=== PATIENT | male | born 1970 | race Two or more races ===

== ENCOUNTER 2020-07-25 13:34 | Outpatient (REF) | payer OTHER, SELFPAY ==
[2020-07-25 14:29] LABS: MANUAL DIFF FLAG NO
[2020-07-25 14:35] LABS: Basophils Percent Auto 0.1 % (0-2); Eosinophils Absolute Auto 0.1 X10*3/uL (0.0-0.4); Eosinophils Percent Auto 1.6 % (0-4); Hematocrit 40.8 % (42-52); Hemoglobin 13.4 g/dl (14.0-18.0); Imm Gran Abs Auto 0.02 X10*3/uL (0.00-0.03); Imm Gran Pct Auto 0.3 % (0.0-0.4); Lymphocytes Absolute Auto 1.5 X10*3/uL (1.2-4.9); Lymphocytes Percent Auto 21.8 % (20-40); Mean Corpuscular HGB Conc 32.8 g/dl (31.0-36.0); Mean Corpuscular Hemoglobin 29.6 pg (27.0-33.0); Mean Corpuscular Volume 90.3 fL (80-98); Mean Platelet Volume 11.2 fL (9.4-12.4); Monocytes Absolute Auto 0.4 X10*3/uL (0.1-1.2); Monocytes Percent Auto 5.3 % (2-11); Neutrophils Absolute Auto 4.9 X10*3/uL (2.0-8.3); Neutrophils Percent Auto 70.9 % (45-73); Platelet Count 210 X10*3/uL (160-400); Red Blood Count 4.52 X10*6/uL (4.60-5.80); Red Cell Distribution Width 12.7 % (11.0-16.0)
[2020-07-25 15:11] LABS: Alanine Aminotransferase 16 U/L (0-40); Albumin Level 4.6 g/dL (3.5-5.0); Alkaline Phosphatase 98 U/L (39-117); Anion Gap 14 (12-20); Aspartate Amino Transferase 12 U/L (5-37); Bilirubin Total 0.4 mg/dL (0.0-1.0); Blood Urea Nitrogen 19 mg/dL (9-16); Calcium 9.6 mg/dL (8.4-10.2); Carbon Dioxide 26 mmol/L (22-29); Chloride 103 mmol/L (96-108); Cholesterol 98 mg/dL; Estimated Glomerular Filt Rate > 60; Glucose Random 102 mg/dL (60-115); HDL Cholesterol 39 mg/dL; LDL Cholesterol Calculated 44 mg/dl; Potassium 4.3 mmol/l (3.3-5.1); Sodium 139 mmol/L (135-145); Total Protein 6.9 g/dL (6.5-8.0); Triglycerides 79 mg/dL
[2020-07-25 15:17] LABS: Creatinine Urine 270.04 mg/dL; Microalbum/Creatinine Ratio Ur 7.4 ug/mg cr
[2020-07-25 15:27] LABS: Thyroid Stimulating Hormone 0.48 uIU/mL (0.32-4.0)
[2020-07-25 16:13] LABS: Vitamin B12 > 2000 pg/mL (200-900)
[2020-07-28 23:42] LABS: Lamotrigine Lamictal 7.1 mcg/mL (4.0-18.0)
== END 2020-07-25 13:35 | disposition home or self-care (01) ==
LOC: HO.LAB 13:34
PROVIDERS: Absent Provider Psychiatry & Neurology Psychiatry; PCP Internal Medicine; Visit Provider Internal Medicine
DX: E11.40 Type 2 diabetes mellitus with diabetic neuropathy, unspecified (principal); E78.00 Pure hypercholesterolemia, unspecified; F43.12 Post-traumatic stress disorder, chronic; Z00.00 Encounter for general adult medical examination without abnormal findings; Z79.899 Other long term (current) drug therapy
CPT/HCPCS: 36415; 80053; 80061; 80175; 82043; 82607; 84443; 85025

== ENCOUNTER → 2020-08-31 13:27 | Outpatient (BNVA) | payer OTHER, SELFPAY | PROVIDERS: PCP Internal Medicine; Visit Provider Urology | DX: R35.0 Frequency of micturition (principal); R10.32 Left lower quadrant pain; R31.9 Hematuria, unspecified | CPT/HCPCS: 51798; 81002; 99212 ==

== ENCOUNTER 2020-10-06 08:45 | Outpatient (REF) | payer OTHER, SELFPAY ==
--- NOTE | ~2020-10-06 | CT_ITS ---
EXAMINATION: CT ABDOMEN AND PELVIS WITHOUT AND WITH CONTRAST CLINICAL INFORMATION: Hematuria. COMPARISON: CT abdomen and pelvis 10/14/2019 and 05/24/2019 TECHNIQUE: Multidetector volumetric imaging was performed of the abdomen and pelvis before and after the IV administration of 350 mL of Omnipaque 300 intravenous contrast. Sagittal and coronal reformatted images were obtained on the technologist's workstation. This CT examination was performed using dose optimization techniques as appropriate, variously including the following: Automated exposure control Adjustment of mA and/or kV according to patient size (this includes techniques or standardized protocols for targeted exams where dose is matched to indication/reason for exam; i.e. extremities or head) Use of iterative reconstruction technique DLP: 735 mGy-cm FINDINGS: LUNG BASES: There are minimal atelectatic changes in the lingula and left lung base. LIVER, GALLBLADDER, AND BILIARY TREE: The liver is normal in size, shape, and attenuation. No focal hepatic lesion or biliary ductal dilatation is present. The gallbladder is unremarkable with no evidence of radiopaque gallstones, gallbladder wall thickening, or obvious pericholecystic inflammatory changes. PANCREAS: Unremarkable SPLEEN: Unremarkable ADRENAL GLANDS: Unremarkable KIDNEYS AND URETERS: There are no radiopaque renal calculi or hydroureteronephrosis. Post contrast, there are symmetrical bilateral kidney nephrograms without any enhancing mass or cyst. There is no perinephric fat stranding. There are bilateral opacified kidney pelves and ureters without obstruction or narrowing. BLADDER: Partially opacified bladder appears unremarkable. GASTROINTESTINAL TRACT: There is scattered stool and gas seen throughout the colon without any significant distention. The small bowel loops are of normal caliber. ABDOMINAL WALL: No significant hernia is appreciated. LYMPH NODES: No abnormal sized lymph nodes seen. VASCULAR: Unremarkable PELVIC VISCERA: Prostate gland is of normal size with TURP defect. The periprostatic fat planes are preserved. OSSEOUS STRUCTURES: There is mild ventral spondylosis of the lumbar spine. There is anterior fusion of the right SI joint. There is a 2.2 cm lesion of the left iliac bone with sclerotic borders and a ground-glass opacity. CT/CT abdomen pelvis wo/w con IMPRESSION: No radiopaque urolith or renal enhancing mass or hydroureteronephrosis. Non-distended urinary bladder with a TURP defect. Prostate gland is of normal size. Mild constipation. Stable right SI joint fusion and sclerotic benign left iliac bone lesion aerated
[2020-10-06 10:33] LABS: Estimated Average Glucose 111 mg/dL; Hemoglobin A1c % 5.5 %
[2020-10-06 10:38] LABS: Alanine Aminotransferase 16 U/L (0-40); Albumin Level 4.4 g/dL (3.5-5.0); Alkaline Phosphatase 107 U/L (39-117); Anion Gap 12 (12-20); Aspartate Amino Transferase 12 U/L (5-37); Bilirubin Total 0.3 mg/dL (0.0-1.0); Blood Urea Nitrogen 19 mg/dL (9-16); Calcium 9.7 mg/dL (8.4-10.2); Carbon Dioxide 31 mmol/L (22-29); Chloride 104 mmol/L (96-108); Estimated Glomerular Filt Rate > 60; Glucose Random 132 mg/dL (60-115); Potassium 4.5 mmol/L (3.3-5.1); Sodium 142 mmol/L (135-145); Total Protein 6.6 g/dL (6.5-8.0)
[2020-10-06] MEDS: iohexoL 350 MG/ML 100 ML INFUS..BTL IV (11:39)
== END 2020-10-06 08:46 | disposition home or self-care (01) ==
LOC: HO.CT 08:45
PROVIDERS: Absent Provider Internal Medicine; PCP Internal Medicine; Visit Provider Urology
DX: R10.32 Left lower quadrant pain (principal); R31.9 Hematuria, unspecified; R35.0 Frequency of micturition; E11.9 Type 2 diabetes mellitus without complications
CPT/HCPCS: 74178; 80053; 83036; Q9967

== ENCOUNTER → 2020-10-14 09:51 | Outpatient (BNVA) | payer OTHER, SELFPAY | PROVIDERS: PCP Internal Medicine; Visit Provider Urology | DX: Z76.89 Persons encountering health services in other specified circumstances (principal) | CPT/HCPCS: Q3014 ==

== ENCOUNTER → 2020-11-15 13:54 | Outpatient (BNVA) | payer OTHER, SELFPAY | PROVIDERS: PCP Internal Medicine; Visit Provider Urology | DX: N40.1 Benign prostatic hyperplasia with lower urinary tract symptoms (principal); N13.8 Other obstructive and reflux uropathy; R31.9 Hematuria, unspecified | CPT/HCPCS: 99212 ==

== ENCOUNTER 2020-12-19 09:16 | Day surgery (SDC) | payer OTHER, SELFPAY ==
--- NOTE | 2020-12-01 14:46 | HO.ANESPROP2 ---
HPI - Anesthesia Eval Consult details Narrative: 50yo M for Cystoscopy with Fulgeration [facility], [facility] Active Problems Active Problems: All Active Problems (Updated 10/14/20 @ 10:09 by Eric Randhawa MD) BPH w urinary obs/LUTS (Acute) Hematuria (Acute) Left lower quadrant pain (Acute) Urinary frequency (Acute) Past Medical History Medical History (Updated 12/01/20 @ 14:47 by Edda Hoang) Benign prostatic hyperplasia with lower urinary tract symptoms Hematuria Hypercalcemia Left lower quadrant pain Other obstructive and reflux uropathy Type 2 diabetes mellitus with unspecified complications Urgency incontinence Urinary frequency Social History Social History Smoking Status: Former smoker Meds Allergies Allergy/AdvReac Type Severity Reaction Status Date / Time linagliptin [From TRADJENTA] Allergy Unknown RASH Unverified 05/12/20 17:27 Wpfngfl-Xum-Qfr Reductase Allergy Unknown ITCHY,SKIN Unverified 05/12/20 17:27 Inhibitor BREAKDOWN [[id number] REDUCTASE INHIBITOR] statins Allergy Unknown Uncoded 03/30/20 00:00 Home Medications Medication Instructions Recorded Confirmed Last Taken Type atorvastatin 20 mg tablet 20 mg PO DAILY 08/31/20 08/31/20 Unknown History bacitracin 500 unit/gram topical TOPICAL BID 08/31/20 08/31/20 Unknown History ointment baclofen 20 mg tablet 20 mg PO 08/31/20 08/31/20 Unknown History carbamazepine 200 mg tablet 200 mg PO BEDTIME 08/31/20 08/31/20 Unknown History clonazepam 0.5 mg tablet 0.5 mg PO BEDTIME 08/31/20 08/31/20 Unknown History cyanocobalamin (vitamin B-12) 1,000 mcg PO DAILY 08/31/20 08/31/20 Unknown History 1,000 mcg tablet dicyclomine 10 mg capsule 0 mg PO 08/31/20 08/31/20 Unknown History duloxetine 30 mg capsule,delayed 30 mg PO DAILY 08/31/20 08/31/20 Unknown History release lisinopril 2.5 mg tablet 2.5 mg PO DAILY 08/31/20 08/31/20 Unknown History metformin 1,000 mg tablet 1,000 mg PO BID 08/31/20 08/31/20 Unknown History naproxen 500 mg tablet 500 mg PO BID 08/31/20 08/31/20 Unknown History pregabalin 300 mg capsule 300 mg PO BID 08/31/20 08/31/20 Unknown History quetiapine 25 mg tablet 25 mg PO BEDTIME 08/31/20 08/31/20 Unknown History sitagliptin 100 mg tablet 100 mg PO DAILY 08/31/20 08/31/20 Unknown History bupropion HCl 150 mg 24 hr tablet, mg PO 10/14/20 Unknown History extended release bupropion HCl 300 mg 24 hr tablet, 300 mg PO QAM 10/14/20 Unknown History extended release duloxetine 60 mg capsule,delayed 60 mg PO DAILY 10/14/20 Unknown History release glimepiride 1 mg tablet 1 mg PO DAILY 10/14/20 Unknown History glipizide 2.5 mg tablet, extended 2.5 mg PO DAILY 10/14/20 Unknown History release 24 hr ibuprofen 600 mg tablet 600 mg PO TID 10/14/20 Unknown History lamotrigine 200 mg tablet 200 mg PO BID 10/14/20 Unknown History prazosin 2 mg capsule 2 mg PO BEDTIME 10/14/20 Unknown History prazosin 5 mg capsule 5 mg PO BEDTIME 10/14/20 Unknown History Exam Exam Date and Time: December 01, 2020 144 Assessment and Plan Assessment Anesthesia Assessment: Chart Reviewed
[2020-12-14 12:30] VITALS: BMI 26.0
[2020-12-19] VITALS (8 sets, daily range): BP systolic 109–120; BP diastolic 52–80; PULSE 53–72; RESP 9–17; TEMP 36.1–36.9; O2SAT 96–99
[2020-12-19 10:51] LABS: Glucose, Whole Blood 113 mg/dL (60-115)
[2020-12-19] MEDS: levoFLOXacin 500 MG TABLET PO (11:01)
[2020-12-19] MEDS: Lactated Ringers 1,000 ML 100 ML IVCONT (11:01)
--- NOTE | 2020-12-19 13:20 | P.CONAN_ITS ---
[facility] Active Problems Active Problems: All Active Problems (Updated 12/01/20 @ 14:47 by Edda parish) BPH w urinary obs/LUTS (Acute) Hematuria (Acute) Left lower quadrant pain (Acute) Urinary frequency (Acute) Past Medical History Medical History Benign prostatic hyperplasia with lower urinary tract symptoms Hematuria Hypercalcemia Left lower quadrant pain Other obstructive and reflux uropathy Type 2 diabetes mellitus with unspecified complications Urgency incontinence Urinary frequency Surgical History Surgical History H/O colonoscopy History of prostate surgery Hx of cystoscopy Hx of cystoscopy Social History Social History Smoking Status: Unknown if ever smoked Advance Directives Information Provided: No Meds Allergies Allergy/AdvReac Type Severity Reaction Status Date / Time linagliptin [From TRADJENTA] Allergy Intermediate RASH Verified 12/14/20 12:20 Urddmwy-Xye-Gik Reductase Allergy Intermediate ITCHY,SKIN Verified 12/14/20 12:20 Inhibitor BREAKDOWN [[id number] REDUCTASE INHIBITOR] Active Medications: Current Medications Generic Name Dose Route Start Last Admin Trade Name Freq PRN Reason Stop Dose Admin Lactated Ringer's 1,000 mls @ 20 mls/hr 12/19/20 07:30 Lr IVCONT .Q24H ROLF Lactated Ringer's 1,000 mls @ 100 mls/hr 12/19/20 10:15 12/19/20 11:01 Lr IVCONT 100 mls/hr .Q10H ROLF Administration Home Medications Medication Instructions Recorded Confirmed Last Taken Type atorvastatin 20 mg tablet 20 mg PO DAILY 08/31/20 12/14/20 Unknown History bacitracin 500 unit/gram topical TOPICAL BID 08/31/20 08/31/20 Unknown History ointment baclofen 20 mg tablet 20 mg PO 08/31/20 08/31/20 Unknown History carbamazepine 200 mg tablet 200 mg PO BEDTIME 08/31/20 12/14/20 Unknown History clonazepam 0.5 mg tablet 0.5 mg PO BEDTIME 08/31/20 12/14/20 Unknown History cyanocobalamin (vitamin B-12) 1,000 mcg PO DAILY 08/31/20 12/14/20 Unknown History 1,000 mcg tablet dicyclomine 10 mg capsule 0 mg PO 08/31/20 08/31/20 Unknown History duloxetine 30 mg capsule,delayed 30 mg PO DAILY 08/31/20 12/14/20 12/19/20 History release lisinopril 2.5 mg tablet 2.5 mg PO DAILY 08/31/20 12/14/20 Unknown History metformin 1,000 mg tablet 1,000 mg PO BID 08/31/20 12/14/20 Unknown History naproxen 500 mg tablet 500 mg PO BID 08/31/20 08/31/20 Unknown History pregabalin 300 mg capsule 300 mg PO BID 08/31/20 12/14/20 12/19/20 History quetiapine 25 mg tablet 25 mg PO BEDTIME 08/31/20 12/14/20 Unknown History sitagliptin 100 mg tablet 100 mg PO DAILY 08/31/20 12/14/20 Unknown History bupropion HCl 150 mg 24 hr tablet, 150 mg PO QAM 10/14/20 12/14/20 Unknown History extended release bupropion HCl 300 mg 24 hr tablet, 300 mg PO QAM 10/14/20 12/14/20 12/19/20 History extended release duloxetine 60 mg capsule,delayed 60 mg PO DAILY 10/14/20 12/14/20 12/19/20 History release glimepiride 1 mg tablet 1 mg PO DAILY 10/14/20 Unknown History glipizide 2.5 mg tablet, extended 2.5 mg PO DAILY 10/14/20 12/14/20 Unknown History release 24 hr ibuprofen 600 mg tablet 600 mg PO TID 10/14/20 Unknown History lamotrigine 200 mg tablet 200 mg PO BID 10/14/20 12/14/20 12/19/20 History prazosin 2 mg capsule 2 mg PO BEDTIME 10/14/20 12/14/20 Unknown History prazosin 5 mg capsule 5 mg PO BEDTIME 10/14/20 12/14/20 Unknown History Exam Exam Date and Time: December 19, 2020 1320 Height,Weight and Vital Signs: Height 5 ft 11 in Weight 84.822 kg Last Vital Signs Temp 98.5 F 12/19/20 10:50 Pulse 72 12/19/20 10:50 Resp 16 12/19/20 10:50 BP 110/76 04/26/21 10:50 Pulse Ox 99 12/19/20 10:50 Pertinent Lab Results Pertinent Lab Results: Laboratory Tests 12/19/20 10:48 POC Glucose 113 Airway Mallampati Class: II TM Dist: >3cm Neck ROM: Full Heart: RR Lungs: CTA
--- NOTE | 2020-12-19 13:39 | MHC.SHP ---
Pre-Procedural Eval Section A The patient is an INPATIENT: No Changes since office visit: No Cold of Flu in the past 2 weeks, No New Medical Problems, No Changes in Medication and No Patient answered all questions The History & Physical has been completed within 30 days and I have reviewed it.: Yes Section B Chief Complaint: bleeding Allergies: Allergies Allergy/AdvReac Type Severity Reaction Status Date / Time linagliptin [From TRADJENTA] Allergy Intermediate RASH Verified 12/14/20 12:20 Nezzeml-Lhd-Rrv Reductase Allergy Intermediate ITCHY,SKIN Verified 12/14/20 12:20 Inhibitor BREAKDOWN [[id number]-NIM REDUCTASE INHIBITOR] Plan Diagnosis/Plan: Unchanged (cysto/fulgerate) I have reviewed the history and physical and performed a pertinent physical examination on my patient. No changes have occurred unless specified.
[2020-12-19 15:16] LABS: Glucose, Whole Blood 85 mg/dL (60-115)
--- NOTE | 2020-12-19 15:33 | PM.OP ---
Brief Operative Note Date of Service: 12/19/20 Pre-op diagnosis: Hematuria Post-op diagnosis: same Procedure: Cystoscopy with fulguration Surgeon: Eric Randhawa MD Anesthesia: MAC Estimated blood loss (mL): 0 Pathology: none sent Condition: stable Disposition: same day
--- NOTE | 2020-12-19 15:34 | P.OP_ITS ---
Operative Note Operative Note Date of Service: 12/19/20 Narrative: PreOperative Diagnosis: Hematuria Post Operative Diagnosis: Hematuria Procedure: Cysto fulguration Surgeon: Dr Eric Randhawa Anesthesia: General Indications for procedure: 50-year-old male. Previous prostate procedure. Presented with hematuria found to have near vascular change on bladder neck. Recommend cystoscopy with fulguration. Procedure: After informed consent was verified the patient was brought to the operating room and placed in a supine position. Anesthesia was administered per protocol. Patient was placed in modified dorsal lithotomy position and prepped and draped in a sterile fashion. Safety pause time-out was observed. Antibiotics have been given. Twenty-two [place]ian rigid cystoscope inserted per urethra. No abnormality noted in anterior posterior urethra. Bladder was examined in its entirety. There was neovascular change on the bladder outlet. This was fulgurated. After fulguration new procedure was completed. Tolerated procedure well was extubated in the operating room transferred in stable condition to the recovery area. Pathology: None Drains:
[2020-12-19 16:02] LABS: Glucose, Whole Blood 83 mg/dL (60-115)
[2020-12-19] MEDS: Acetaminophen 325 MG TABLET 650 MG PO (16:06)
[2020-12-19] MEDS: Phenazopyridine HCL 100 MG TABLET PO (16:07)
[2020-12-19] MEDS: traMADoL HCL 50 MG TABLET PO (16:07)
== END 2020-12-19 16:46 | disposition home or self-care (01) ==
PROVIDERS: PCP Internal Medicine; Visit Provider Urology
PROC: 0TJB8ZZ Inspection of Bladder, Via Natural or Artificial Opening Endoscopic (ICD-10-PCS; CPT 52000; principal; 2020-12-19 12:50)
DX: N40.1 Benign prostatic hyperplasia with lower urinary tract symptoms (principal); R31.9 Hematuria, unspecified; N13.8 Other obstructive and reflux uropathy; R35.0 Frequency of micturition; R39.15 Urgency of urination; E11.9 Type 2 diabetes mellitus without complications; Z79.84 Long term (current) use of oral hypoglycemic drugs; Z79.899 Other long term (current) drug therapy; Z88.8 Allergy status to other drugs, medicaments and biological substances
CPT/HCPCS: 52214; 82947; J1100; J2250; J2405; J3010

== ENCOUNTER → 2021-01-04 12:12 | Outpatient (BNVA) | payer OTHER, SELFPAY | PROVIDERS: PCP Internal Medicine; Visit Provider Urology | DX: Z13.89 Encounter for screening for other disorder (principal) | CPT/HCPCS: Q3014 ==

== ENCOUNTER 2021-01-17 14:00 | Outpatient (REF) | payer OTHER, SELFPAY ==
[2021-01-17 14:44] LABS: MANUAL DIFF FLAG NO
[2021-01-17 14:49] LABS: Basophils Percent Auto 0.1 % (0-2); Eosinophils Absolute Auto 0.1 X10*3/uL (0.0-0.4); Eosinophils Percent Auto 1.2 % (0-4); Hematocrit 38.8 % (42-52); Imm Gran Abs Auto 0.04 X10*3/uL (0.00-0.03); Imm Gran Pct Auto 0.5 % (0.0-0.4); Lymphocytes Absolute Auto 1.9 X10*3/uL (1.2-4.9); Lymphocytes Percent Auto 23.2 % (20-40); Mean Corpuscular HGB Conc 33.5 g/dl (31.0-36.0); Mean Corpuscular Hemoglobin 30.4 pg (27.0-33.0); Mean Corpuscular Volume 90.7 fL (80-98); Mean Platelet Volume 10.8 fL (9.4-12.4); Monocytes Absolute Auto 0.6 X10*3/uL (0.1-1.2); Monocytes Percent Auto 7.3 % (2-11); Neutrophils Absolute Auto 5.6 X10*3/uL (2.0-8.3); Neutrophils Percent Auto 67.7 % (45-73); Platelet Count 235 X10*3/uL (160-400); Red Blood Count 4.28 X10*6/uL (4.60-5.80); Red Cell Distribution Width 12.6 % (11.0-16.0); White Blood Count 8.3 X10*3/uL (4.8-10.8)
[2021-01-17 14:56] LABS: Estimated Average Glucose 120 mg/dL; Hemoglobin A1c % 5.8 %
[2021-01-17 15:07] LABS: Alanine Aminotransferase 19 U/L (0-40); Albumin Level 4.6 g/dL (3.5-5.0); Alkaline Phosphatase 111 U/L (39-117); Anion Gap 13 (12-20); Aspartate Amino Transferase 12 U/L (5-37); Bilirubin Total 0.2 mg/dL (0.0-1.0); Blood Urea Nitrogen 22 mg/dL (9-16); Calcium 10.3 mg/dL (8.4-10.2); Carbon Dioxide 27 mmol/L (22-29); Chloride 102 mmol/L (96-108); Estimated Glomerular Filt Rate > 60; Glucose Random 64 mg/dL (60-115); Potassium 4.1 mmol/L (3.3-5.1); Sodium 138 mmol/L (135-145); Total Protein 6.8 g/dL (6.5-8.0)
== END 2021-01-17 14:01 | disposition home or self-care (01) ==
LOC: HO.LAB 14:00
PROVIDERS: PCP Internal Medicine; Visit Provider Internal Medicine
DX: E11.40 Type 2 diabetes mellitus with diabetic neuropathy, unspecified (principal); E78.00 Pure hypercholesterolemia, unspecified; R23.3 Spontaneous ecchymoses
CPT/HCPCS: 36415; 80053; 83036; 85025

== ENCOUNTER 2021-01-22 13:02 | Emergency (ER) | payer OTHER, SELFPAY ==
--- NOTE | ~2021-01-22 | XR_ITS ---
EXAMINATION: XR CHEST CLINICAL INFORMATION: Chest pain COMPARISON: 02/21/2018 TECHNIQUE: 2 views of the chest were obtained. FINDINGS: Normal cardiomediastinal silhouette. Mild hypoinflation of the lungs with streaky atelectasis at the bilateral lung bases. No focal consolidation. No pleural effusion or pneumothorax. No acute osseous abnormality. Anterior fusion hardware is seen in the lower cervical spine. XR/XR chest 2V IMPRESSION: Streaky atelectasis at the bilateral lung bases. No acute consolidation.
[2021-01-22 13:11] VITALS: BP 125/83; PULSE 81; RESP 16; TEMP 36.8; O2SAT 98; BMI 25.0
--- NOTE | 2021-01-22 13:30 | ECG_ITS ---
Test Reason : SHORTNESS OF BREATH Blood Pressure : / mmHG Vent. Rate : 084 BPM Atrial Rate : 084 BPM P-R Int : 142 ms QRS Dur : 082 ms QT Int : 352 ms P-R-T Axes : 039 013 041 degrees QTc Int : 415 ms Normal sinus rhythm Possible Left atrial enlargement Possible Lateral infarct , age undetermined ; could be normal variant Abnormal ECG When compared with ECG of 05-MAR-2018 15:35, No significant change was found Referred By: Pily Mayorga Electronically Signed By:JYOTSNA MUNOZ
--- NOTE | 2021-01-22 13:43 | ED_ITS ---
HPI - Chest Pain General Chief Complaint: Chest Pain Stated Complaint: cp, diff breathing Time Seen by Provider: 01/22/21 13:20 Source: patient History of Present Illness HPI narrative: 50-year-old male past medical history of anxiety, depression, fibromyalgia, diabetes, hyperlipidemia, former smoker, quit 15 years ago presenting to the emergency department for chest pain and shortness of breath. Symptoms started on Saturday. He states he has had intermittent left-sided chest pain that is described as a pounding pain to the left side of his chest. It radiates to his jaw and down his left arm. Denies specific sugars. Symptoms started while he was watching a sports game on Saturday. He denies exertional chest pain. He states he is disabled due to his fibromyalgia and chronic back pain and denies any heavy lifting or strenuous exercise. He denies having similar episodes previously. No relieving factors. States it resolved spontaneously. Today pain worsened so he decided to come to the ED. He states he does have a history of cocaine use in the past but denies recent use. He denies IV drug use. He denies fevers, cough, abdominal pain, vomiting, leg swelling, history of DVT or PE. MD complaint: chest pain Related Data Home Medications Medication Instructions Recorded Confirmed atorvastatin 20 mg tablet 20 mg PO DAILY 08/31/20 12/14/20 bacitracin 500 unit/gram topical TOPICAL BID 08/31/20 08/31/20 ointment baclofen 20 mg tablet 20 mg PO 08/31/20 08/31/20 carbamazepine 200 mg tablet 200 mg PO BEDTIME 08/31/20 12/14/20 clonazepam 0.5 mg tablet 0.5 mg PO BEDTIME 08/31/20 12/14/20 cyanocobalamin (vitamin B-12) 1,000 mcg PO DAILY 08/31/20 12/14/20 1,000 mcg tablet dicyclomine 10 mg capsule 0 mg PO 08/31/20 08/31/20 duloxetine 30 mg capsule,delayed 30 mg PO DAILY 08/31/20 12/14/20 release lisinopril 2.5 mg tablet 2.5 mg PO DAILY 08/31/20 12/14/20 metformin 1,000 mg tablet 1,000 mg PO BID 08/31/20 12/14/20 naproxen 500 mg tablet 500 mg PO BID 08/31/20 08/31/20 pregabalin 300 mg capsule 300 mg PO BID 08/31/20 12/14/20 quetiapine 25 mg tablet 25 mg PO BEDTIME 08/31/20 12/14/20 sitagliptin 100 mg tablet 100 mg PO DAILY 08/31/20 12/14/20 bupropion HCl 150 mg 24 hr tablet, 150 mg PO QAM 10/14/20 12/14/20 extended release bupropion HCl 300 mg 24 hr tablet, 300 mg PO QAM 10/14/20 12/14/20 extended release duloxetine 60 mg capsule,delayed 60 mg PO DAILY 10/14/20 12/14/20 release glimepiride 1 mg tablet 1 mg PO DAILY 10/14/20 glipizide 2.5 mg tablet, extended 2.5 mg PO DAILY 10/14/20 12/14/20 release 24 hr ibuprofen 600 mg tablet 600 mg PO TID 10/14/20 lamotrigine 200 mg tablet 200 mg PO BID 10/14/20 12/14/20 prazosin 2 mg capsule 2 mg PO BEDTIME 10/14/20 12/14/20 prazosin 5 mg capsule 5 mg PO BEDTIME 10/14/20 12/14/20 Previous Rx's Medication Instructions Recorded tamsulosin 0.4 mg capsule 0.4 mg PO BEDTIME #30 cap 11/07/20 finasteride 5 mg tablet 5 mg PO DAILY 90 Days #90 tab 01/04/21 lidocaine 1 patch TOPICAL DAILY PRN 5 Days 01/22/21 #5 ea Allergies Allergy/AdvReac Type Severity Reaction Status Date / Time linagliptin [From [facility]] Allergy Intermediate RASH Verified 01/04/21 12:12 Hadvdxz-Iqq-Idg Reductase Allergy Intermediate ITCHY,SKIN Verified 01/04/21 12:12 Inhibitor BREAKDOWN [[id number] REDUCTASE INHIBITOR] Review of Systems Constitutional: Constitutional: Denies fever(s) and Denies headache(s) Eyes: Eyes: Reports no additional eye complaints ENT: Denies headache(s), Denies nasal congestion and Denies sore throat Cardiovascular: Cardiovascular: Reports chest pain and Reports dyspnea Respiratory: Respiratory: Reports dyspnea Gastrointestinal: Gastrointestinal: Denies abdominal pain, Denies diarrhea and Denies vomiting Genitourinary: Comments: no complaint Musculoskeletal: Comments: left extremity pain Neurologic: Denies headache(s) Psychiatric: Psychiatric: Reports no additional psychiatric complaints Hematologic/Lymphatic: Hematologic/Lymphatic: Denies easy bleeding [facility] Past Medical History Medical History Benign prostatic hyperplasia with lower urinary tract symptoms Hematuria Hypercalcemia Left lower quadrant pain Other obstructive and reflux uropathy Type 2 diabetes mellitus with unspecified complications Urgency incontinence Urinary frequency Surgical History H/O colonoscopy History of prostate surgery Hx of cystoscopy Hx of cystoscopy Social History Social History (Updated 01/22/21 @ 15:08 by PRICILA Montelongo) Alcohol intake: former Patient Tobacco Use Status: Former Tobacco user Quit Date: 15 years ago Smoked in Last 30 Days: No Use of substances other than those prescribed or required for medical reasons: No Substance Use Type: Crack/Cocaine and Marijuana Substance Use Type Other:: former coccaine use Advance Directives: No Advance Directives Information Provided: No Physical Exam Vital Signs: Vital Signs: Last Vital Signs Temp 98.0 F 01/22/21 15:40 Pulse 79 01/22/21 15:40 Resp 20 01/22/21 15:40 BP 112/67 01/22/21 15:40 Pulse Ox 97 01/22/21 15:40 Body Mass Index 25.0 Const: General: anxious Orientation/consciousness: patient oriented x3 HENMT: Head: Yes atraumatic Eyes: Pupils: Equal, round and reactive pupils present Neck: Neck: Yes full ROM, Yes no meningeal signs, Yes trachea midline and Yes supple Chest: Other: diffuse tenderness along left chest wall, no crepitus Chest palpation & inspection: normal inspection of the chest Resp: Effort & Inspection: normal respiratory effort Auscultation: clear to auscultation bilaterally Cardio: Rate: regular rate Rhythm: regular rhythm GI: Palpation (GI): Soft to palpation and nontender Back/Spine/Pelvis: Other: full ROM Skin: Rashes: no rashes Neuro: General: patient oriented x3 and no meningeal signs Cranial nerves: Yes Equal, round and reactive pupils present Extrem: General: Yes full ROM Psych: Appearance: grossly normal Course Course Course Narrative: 18:07- sign out given to Dr. Misty salazar delta troponin, re- eval and final disposition. Reevaluation(s) Reevaluation #1: Vitals have remained stable. Initial labs were negative. Will check a delta troponin and an EKG x2. Reevaluation #2: 17:49- pt. appears more comfortable, discussed results with him. Awaiting on delta troponin to result. Advised pt. he should follow up with his PCP, advised to return if his symptoms should worsen tomorrow since he would not be able to be seen due to the holiday. MDM - Chest Pain MDM Narrative Medical decision making narrative: 50-year-old male presenting to the emergency department with chest pain since Saturday that has been intermittent with associated shortness of breath Vital stable, well-appearing, hemodynamically stable Will plan for basic labs to assess for leukocytosis, anemia or renal dysfunction. Will check troponin EKG for signs of ischemia. Which a chest x- ray for lung pathology. Pneumonia less likely as he is afebrile and does not have a cough. No trauma to suggest an underlying pneumothorax. CHF exacerbation is less likely as he does not appear volume overloaded and does not have peripheral edema. Less likely to have pericarditis since chest pain is not positional. ACS is considered given his risk factor of age, diabetes and hyperlipidemia my heart score is a 3. PE is less likely since he is not tachycardic, no history of cancer, not hypoxic, no unilateral leg swelling, no recent travel, no history of DVT with PE. Aortic dissection less likely since he has no ripping/tearing CP into the back, pain reproduced on palpation and movement of L arm. Patient is very tender on exam which could be due to an underlying musculoskeletal process. He has no rash to suggest a zoster. Will give him Toradol, Tylenol and a lidocaine patch for his symptoms. Lab Data Result diagrams: 01/22/21 13:44 01/22/21 13:44 Labs: Lab Results 01/22/21 01/22/21 01/22/21 Range/Units 13:44 13:44 13:44 WBC 7.6 (4.8-10.8) X10*3/uL RBC 4.24 L (4.60-5.80) X10*6/uL Hgb 13.1 L (14.0-18.0) g/dl Hct 38.0 L (42-52) % MCV 89.6 (80-98) fL MCH 30.9 (27.0-33.0) pg MCHC 34.5 (31.0-36.0) g/dl RDW 12.3 (11.0-16.0) % Plt Count 220 (160-400) X10*3/uL MPV 10.5 (9.4-12.4) fL Immature Gran % (Auto) 0.4 (0.0-0.4) % Neut % (Auto) 70.5 (45-73) % Lymph % (Auto) 21.3 (20-40) % Lake % (Auto) 6.6 (2-11) % Eos % (Auto) 0.9 (0-4) % Baso % (Auto) 0.3 (0-2) % Lymph # (Auto) 1.6 (1.2-4.9) X10*3/uL [place] # (Auto) 0.5 (0.1-1.2) X10*3/uL Eos # (Auto) 0.1 (0.0-0.4) X10*3/uL Baso # (Auto) 0.0 (0.0-0.2) X10*3/uL Abs Immat Gran (auto) 0.03 (0.00-0.03) X10*3/uL Absolute Neuts (auto) 5.3 (2.0-8.3) X10*3/uL Absolute Nucleated RBC 0.000 (0.0-0.012) X10*3/uL Nucleated RBC % (auto) 0.0 (0.0-0.2) /100WBC Hold Blue Top SEE NOTE Sodium 138 (135-145) mmol/L Potassium 4.2 (3.3-5.1) mmol/L Chloride 102 (96-108) mmol/L Carbon Dioxide 24 (22-29) mmol/L Anion Gap 16 (12-20) BUN 19 H (9-16) mg/dL Creatinine 0.97 (0.5-1.4) mg/dL Estim Creat Clear Calc 98.8 Estimated GFR > 60 Random Glucose 180 H D (60-115) mg/dL Calcium 9.9 (8.4-10.2) mg/dL Troponin I High Sens (<3.5-35.0) ng/L 01/22/21 Range/Units 13:44 WBC (4.8-10.8) X10*3/uL RBC (4.60-5.80) X10*6/uL Hgb (14.0-18.0) g/dl Hct (42-52) % MCV (80-98) fL MCH (27.0-33.0) pg MCHC (31.0-36.0) g/dl RDW (11.0-16.0) % Plt Count (160-400) X10*3/uL MPV (9.4-12.4) fL Immature Gran % (Auto) (0.0-0.4) % Neut % (Auto) (45-73) % Lymph % (Auto) (20-40) % Lake % (Auto) (2-11) % Eos % (Auto) (0-4) % Baso % (Auto) (0-2) % Lymph # (Auto) (1.2-4.9) X10*3/uL [place] # (Auto) (0.1-1.2) X10*3/uL Eos # (Auto) (0.0-0.4) X10*3/uL Baso # (Auto) (0.0-0.2) X10*3/uL Abs Immat Gran (auto) (0.00-0.03) X10*3/uL Absolute Neuts (auto) (2.0-8.3) X10*3/uL Absolute Nucleated RBC (0.0-0.012) X10*3/uL Nucleated RBC % (auto) (0.0-0.2) /100WBC Hold Blue Top Sodium (135-145) mmol/L Potassium (3.3-5.1) mmol/L Chloride (96-108) mmol/L Carbon Dioxide (22-29) mmol/L Anion Gap (12-20) BUN (9-16) mg/dL Creatinine (0.5-1.4) mg/dL Estim Creat Clear Calc Estimated GFR Random Glucose (60-115) mg/dL Calcium (8.4-10.2) mg/dL Troponin I High Sens < 3.5 (<3.5-35.0) ng/L ECG Data ECG #1: Interpretation: Taken at 13:18 Normal sinus rhythm at a rate of 84 QTC 415 T-wave inversion in V1 No STEMI ECG #2: Interpretation: Taken at 17:17 Normal sinus rhythm at 74 No longer has T-wave inversion in V1 No STEMI Appears grossly unchanged from EKG 1 Discharge Plan Discharge Clinical Impression: Chest pain Patient Disposition: Home, Self-Care Instructions: Chest Pain (ED) Additional Instructions: Please call your primary care doctor for follow-up appointment tomorrow. Please return to the emergency department if her symptoms worsen, worsening chest pain, trouble breathing, fevers vomiting cough, leg swelling, or any other concerning symptoms. you may continue taking your home medications as prescribed. You may additionally take Tylenol for your pain. Prescriptions: New lidocaine 5 % adhesive patch,medicated 1 patch topical DAILY PRN (Reason: pain (scale score 1-3)) 5 Days Qty: 5 RF: 0 No Action tamsulosin 0.4 mg capsule 0.4 mg PO BEDTIME Qty: 30 RF: 6 lisinopril 2.5 mg tablet 2.5 mg PO DAILY RF: 0 quetiapine 25 mg tablet 25 mg PO BEDTIME RF: 0 clonazepam 0.5 mg tablet 0.5 mg PO BEDTIME RF: 0 naproxen 500 mg tablet 500 mg PO BID RF: 0 atorvastatin 20 mg tablet 20 mg PO DAILY RF: 0 baclofen 20 mg tablet 20 mg PO RF: 0 pregabalin 300 mg capsule 300 mg PO BID RF: 0 bacitracin 500 unit/gram ointment topical BID RF: 0 carbamazepine 200 mg tablet 200 mg PO BEDTIME RF: 0 cyanocobalamin (vitamin B-12) 1,000 mcg tablet 1,000 mcg PO DAILY RF: 0 sitagliptin 100 mg tablet 100 mg PO DAILY RF: 0 metformin 1,000 mg tablet 1,000 mg PO BID RF: 0 duloxetine 30 mg capsule,delayed release(DR/EC) 30 mg PO DAILY RF: 0 dicyclomine 10 mg capsule 0 mg PO RF: 0 finasteride 5 mg tablet 5 mg PO DAILY 90 Days Qty: 90 RF: 1 glipizide 2.5 mg tablet extended release 24hr 2.5 mg PO DAILY RF: 0 ibuprofen 600 mg tablet 600 mg PO TID RF: 0 duloxetine 60 mg capsule,delayed release(DR/EC) 60 mg PO DAILY RF: 0 bupropion HCl 150 mg tablet extended release 24 hr 150 mg PO QAM RF: 0 prazosin 2 mg capsule 2 mg PO BEDTIME RF: 0 bupropion HCl 300 mg tablet extended release 24 hr 300 mg PO QAM RF: 0 prazosin 5 mg capsule 5 mg PO BEDTIME RF: 0 glimepiride 1 mg tablet 1 mg PO DAILY RF: 0 lamotrigine 200 mg tablet 200 mg PO BID RF: 0
[2021-01-22 13:48] LABS: MANUAL DIFF FLAG NO
[2021-01-22 13:50] LABS: Basophils Percent Auto 0.3 % (0-2); Eosinophils Absolute Auto 0.1 X10*3/uL (0.0-0.4); Eosinophils Percent Auto 0.9 % (0-4); Hemoglobin 13.1 g/dl (14.0-18.0); Imm Gran Abs Auto 0.03 X10*3/uL (0.00-0.03); Imm Gran Pct Auto 0.4 % (0.0-0.4); Lymphocytes Absolute Auto 1.6 X10*3/uL (1.2-4.9); Lymphocytes Percent Auto 21.3 % (20-40); Mean Corpuscular HGB Conc 34.5 g/dl (31.0-36.0); Mean Corpuscular Hemoglobin 30.9 pg (27.0-33.0); Mean Corpuscular Volume 89.6 fL (80-98); Mean Platelet Volume 10.5 fL (9.4-12.4); Monocytes Absolute Auto 0.5 X10*3/uL (0.1-1.2); Monocytes Percent Auto 6.6 % (2-11); Neutrophils Absolute Auto 5.3 X10*3/uL (2.0-8.3); Neutrophils Percent Auto 70.5 % (45-73); Platelet Count 220 X10*3/uL (160-400); Red Blood Count 4.24 X10*6/uL (4.60-5.80); Red Cell Distribution Width 12.3 % (11.0-16.0); White Blood Count 7.6 X10*3/uL (4.8-10.8)
[2021-01-22] MEDS: Ketorolac Tromethamine 15 MG/ML VIAL IV (13:51)
[2021-01-22] MEDS: Lidocaine 4 % Patch ADH..PATCH 1 PATCH TRANSDERMA (13:51)
[2021-01-22] MEDS: Acetaminophen 325 MG TABLET 650 MG PO (13:51)
[2021-01-22 14:08] LABS: Anion Gap 16 (12-20); Blood Urea Nitrogen 19 mg/dL (9-16); Calcium 9.9 mg/dL (8.4-10.2); Carbon Dioxide 24 mmol/L (22-29); Chloride 102 mmol/L (96-108); Creatinine Clr Calc Pharmacy 98.8; Estimated Glomerular Filt Rate > 60; Glucose Random 180 mg/dL (60-115); Potassium 4.2 mmol/L (3.3-5.1); Sodium 138 mmol/L (135-145)
[2021-01-22 14:16] LABS: Troponin-I High Sensitivity < 3.5 ng/L (<3.5-35.0)
[2021-01-22 15:40] VITALS: BP 112/67; PULSE 79; RESP 20; TEMP 36.7; O2SAT 97
--- NOTE | 2021-01-22 16:58 | ECG_ITS ---
Test Reason : REPEAT EKG Blood Pressure : / mmHG Vent. Rate : 074 BPM Atrial Rate : 074 BPM P-R Int : 152 ms QRS Dur : 092 ms QT Int : 378 ms P-R-T Axes : 025 007 017 degrees QTc Int : 419 ms Normal sinus rhythm Minimal voltage criteria for LVH, may be normal variant Possible Lateral infarct (cited on or before 22-JAN-2021) ; could be normal variant Abnormal ECG When compared with ECG of 22-JAN-2021 13:18, No significant change was found Referred By: Pily Mayorga Electronically Signed By:JYOTSNA MUNOZ
[2021-01-22 18:11] LABS: Troponin-I High Sensitivity < 3.5 ng/L (<3.5-35.0)
== END 2021-01-22 18:39 | disposition home or self-care (01) ==
PROVIDERS: Physician Assistant Medical; Emergency Provider Emergency Medicine Emergency Medical Services; PCP Internal Medicine
DX: R07.9 Chest pain, unspecified (principal); F41.9 Anxiety disorder, unspecified; F32.9 Major depressive disorder, single episode, unspecified; E11.9 Type 2 diabetes mellitus without complications; E78.5 Hyperlipidemia, unspecified; Z87.891 Personal history of nicotine dependence; Z79.02 Long term (current) use of antithrombotics/antiplatelets; Z79.899 Other long term (current) drug therapy; Z79.84 Long term (current) use of oral hypoglycemic drugs
CPT/HCPCS: 36415; 71046; 80048; 84484; 85025; 93005; 96374; 99285; J1885

== ENCOUNTER → 2021-02-15 10:42 | Outpatient (BNVA) | payer OTHER, SELFPAY | PROVIDERS: PCP Internal Medicine; Visit Provider Urology | CPT/HCPCS: Q3014 ==

== ENCOUNTER 2021-02-16 14:38 | Outpatient (REF) | payer OTHER, SELFPAY ==
[2021-02-16 15:11] LABS: MANUAL DIFF FLAG NO
[2021-02-16 15:13] LABS: Basophils Percent Auto 0.3 % (0-2); Eosinophils Absolute Auto 0.2 X10*3/uL (0.0-0.4); Eosinophils Percent Auto 2.7 % (0-4); Hematocrit 37.5 % (42-52); Hemoglobin 12.4 g/dl (14.0-18.0); Imm Gran Abs Auto 0.03 X10*3/uL (0.00-0.03); Imm Gran Pct Auto 0.5 % (0.0-0.4); Lymphocytes Absolute Auto 1.8 X10*3/uL (1.2-4.9); Mean Corpuscular HGB Conc 33.1 g/dl (31.0-36.0); Mean Corpuscular Hemoglobin 30.6 pg (27.0-33.0); Mean Corpuscular Volume 92.6 fL (80-98); Mean Platelet Volume 10.7 fL (9.4-12.4); Monocytes Absolute Auto 0.3 X10*3/uL (0.1-1.2); Monocytes Percent Auto 5.7 % (2-11); Neutrophils Absolute Auto 3.6 X10*3/uL (2.0-8.3); Neutrophils Percent Auto 60.8 % (45-73); Platelet Count 183 X10*3/uL (160-400); Red Blood Count 4.05 X10*6/uL (4.60-5.80); Red Cell Distribution Width 12.6 % (11.0-16.0)
[2021-02-16 15:19] LABS: Fibrinogen 473 MG/DL (259-690); Prothrombin Time 11.9 SEC (10.8-13.0)
[2021-02-16 15:22] LABS: Partial Thromboplastin Time 42.4 SEC (24.1-38.0)
== END 2021-02-16 14:39 | disposition home or self-care (01) ==
LOC: HO.LAB 14:38
PROVIDERS: PCP Internal Medicine; Visit Provider Internal Medicine Medical Oncology
DX: D68.9 Coagulation defect, unspecified (principal)
CPT/HCPCS: 36415; 85025; 85384; 85610; 85730

== ENCOUNTER 2021-03-16 14:14 | Outpatient (REF) | payer OTHER, SELFPAY ==
[2021-03-20 20:12] LABS: Mixing Study - PT 10.3 sec (9.0-11.5); PTT LA 39 sec (< OR = 40)
== END 2021-03-16 14:15 | disposition home or self-care (01) ==
LOC: HO.LAB 14:14
PROVIDERS: PCP Internal Medicine; Visit Provider Internal Medicine Medical Oncology
DX: D69.2 Other nonthrombocytopenic purpura (principal)
CPT/HCPCS: 36415; 85611; 85732

== ENCOUNTER 2021-06-20 17:29 | Emergency (ER) | payer OTHER, SELFPAY ==
--- NOTE | ~2021-06-20 | US_ITS ---
EXAMINATION: US SCROTUM CLINICAL INFORMATION: Left testicular and epididymal pain. COMPARISON: No similar priors. TECHNIQUE: A sonogram of the scrotum was performed assessing lopez-scale appearance and color Doppler flow. FINDINGS: RIGHT: Right testicle measures 4.8 x 2.4 x 3.5 cm, volume 21 mL. No focal testicular parenchymal lesions are visualized. There is preserved on color Doppler. Right epididymal head is normal in size. Small hydrocele. No right varicocele is seen. Right epididymal Doppler flow is normal. There is a scrotal dannie within the epididymis. LEFT: Left testicle measures 4.5 x 2.3 x 3.1 cm, volume 17 mL. No focal testicular parenchymal lesions are visualized. There is preserved flow on color Doppler. Left epididymal head is normal in size. No left hydrocele or varicocele is seen. Left epididymal Doppler flow is normal. US/US scrotum IMPRESSION: Aside from a small right hydrocele with some echogenic debris, this examination is unremarkable. The echogenic debris could indicate superimposed infection and clinical correlation is needed. No sonographic evidence to suggest epididymoorchitis or testicular torsion at this time.
[2021-06-20 18:18] VITALS: BP 127/81; PULSE 82; RESP 16; TEMP 37.2; O2SAT 99; BMI 23.0
[2021-06-20 18:53] LABS: MANUAL DIFF FLAG NO
[2021-06-20 18:54] LABS: Basophils Percent Auto 0.2 % (0-2); Eosinophils Absolute Auto 0.1 X10*3/uL (0.0-0.4); Eosinophils Percent Auto 1.4 % (0-4); Hematocrit 37.1 % (42-52); Hemoglobin 12.4 g/dl (14.0-18.0); Imm Gran Abs Auto 0.01 X10*3/uL (0.00-0.03); Imm Gran Pct Auto 0.2 % (0.0-0.4); Lymphocytes Absolute Auto 1.6 X10*3/uL (1.2-4.9); Mean Corpuscular HGB Conc 33.4 g/dl (31.0-36.0); Mean Corpuscular Hemoglobin 30.8 pg (27.0-33.0); Mean Corpuscular Volume 92.1 fL (80-98); Mean Platelet Volume 10.4 fL (9.4-12.4); Monocytes Absolute Auto 0.4 X10*3/uL (0.1-1.2); Neutrophils Absolute Auto 3.8 X10*3/uL (2.0-8.3); Neutrophils Percent Auto 65.2 % (45-73); Platelet Count 164 X10*3/uL (160-400); Red Blood Count 4.03 X10*6/uL (4.60-5.80); Red Cell Distribution Width 12.5 % (11.0-16.0); White Blood Count 5.8 X10*3/uL (4.8-10.8)
[2021-06-20 18:56] LABS: Appearance Urine CLEAR; Color Urine YELLOW; Glucose Urine UA NEG (NEG); Leukocyte Esterase Urine NEG (NEG); Nitrite Urine NEG (NEG); Specific Gravity - Urine 1.025 (1.005-1.025); Urine Blood NEG (NEG); Urine Ketones 5 MG/DL (NEG); Urine Protein NEG (NEG-TRACE)
[2021-06-20 19:13] LABS: Alanine Aminotransferase 13 U/L (0-40); Albumin Level 4.3 g/dL (3.5-5.0); Alkaline Phosphatase 93 U/L (39-117); Anion Gap 11 (12-20); Aspartate Amino Transferase 11 U/L (5-37); Bilirubin Total 0.2 mg/dL (0.0-1.0); Blood Urea Nitrogen 19 mg/dL (9-16); Calcium 9.1 mg/dL (8.4-10.2); Carbon Dioxide 29 mmol/L (22-29); Chloride 106 mmol/L (96-108); Creatinine Clr Calc Pharmacy 104.7; Estimated Glomerular Filt Rate > 60; Glucose Random 137 mg/dL (60-115); Potassium 4.2 mmol/L (3.3-5.1); Sodium 142 mmol/L (135-145); Total Protein 6.3 g/dL (6.5-8.0)
--- NOTE | 2021-06-20 19:16 | ED_ITS ---
HPI - Male Genitourinary General Chief complaint: Urogenital-Male Stated complaint: Uro genital Male Time Seen by Provider: 06/20/21 17:35 Source: patient Mode of arrival: ambulatory Limitations: no limitations History of Present Illness HPI Narrative: Patient complaining of pain left groin area for last 2 weeks had prostate enlargement and a cystoscopy in the past ,on Flomax feels that his stream is not straight and also having pain in the left groin area and the left testicular area no dysuria / frequency Related Data Home Medications Medication Instructions Recorded Confirmed atorvastatin 20 mg tablet 20 mg PO DAILY 08/31/20 12/14/20 bacitracin 500 unit/gram topical TOPICAL BID 08/31/20 08/31/20 ointment baclofen 20 mg tablet 20 mg PO 08/31/20 08/31/20 carbamazepine 200 mg tablet 200 mg PO BEDTIME 08/31/20 12/14/20 clonazepam 0.5 mg tablet 0.5 mg PO BEDTIME 08/31/20 12/14/20 cyanocobalamin (vitamin B-12) 1,000 mcg PO DAILY 08/31/20 12/14/20 1,000 mcg tablet dicyclomine 10 mg capsule 0 mg PO 08/31/20 08/31/20 duloxetine 30 mg capsule,delayed 30 mg PO DAILY 08/31/20 12/14/20 release lisinopril 2.5 mg tablet 2.5 mg PO DAILY 08/31/20 12/14/20 metformin 1,000 mg tablet 1,000 mg PO BID 08/31/20 12/14/20 naproxen 500 mg tablet 500 mg PO BID 08/31/20 08/31/20 pregabalin 300 mg capsule 300 mg PO BID 08/31/20 12/14/20 quetiapine 25 mg tablet 25 mg PO BEDTIME 08/31/20 12/14/20 sitagliptin 100 mg tablet 100 mg PO DAILY 08/31/20 12/14/20 bupropion HCl 150 mg 24 hr tablet, 150 mg PO QAM 10/14/20 12/14/20 extended release bupropion HCl 300 mg 24 hr tablet, 300 mg PO QAM 10/14/20 12/14/20 extended release duloxetine 60 mg capsule,delayed 60 mg PO DAILY 10/14/20 12/14/20 release glimepiride 1 mg tablet 1 mg PO DAILY 10/14/20 glipizide 2.5 mg tablet, extended 2.5 mg PO DAILY 10/14/20 12/14/20 release 24 hr ibuprofen 600 mg tablet 600 mg PO TID 10/14/20 lamotrigine 200 mg tablet 200 mg PO BID 10/14/20 12/14/20 prazosin 2 mg capsule 2 mg PO BEDTIME 10/14/20 12/14/20 prazosin 5 mg capsule 5 mg PO BEDTIME 10/14/20 12/14/20 blood sugar diagnostic #10 ea 02/15/21 blood-glucose meter #1 ea 02/15/21 Previous Rx's Medication Instructions Recorded finasteride 5 mg tablet 5 mg PO DAILY 90 Days #90 tab 01/04/21 lidocaine 5 % topical patch 1 patch TOPICAL DAILY PRN 5 Days 01/22/21 #5 ea tamsulosin 0.4 mg capsule 0.4 mg PO BEDTIME #30 cap 03/09/21 oxybutynin chloride 5 mg 10 mg PO DAILY 30 Days #60 tab 04/10/21 tablet,extended release 24 hr tramadol 50 mg tablet 50 mg PO Q6H PRN #20 tab 06/20/21 Allergies Allergy/AdvReac Type Severity Reaction Status Date / Time linagliptin [From [facility]] Allergy Intermediate RASH Verified 02/15/21 10:43 Johybau-RUF-XtP Reductase Allergy Intermediate ITCHY,SKIN Verified 02/15/21 10:43 Inhibitor BREAKDOWN [[id number] REDUCTASE INHIBITOR] Review of Systems Review of Systems: Yes all other systems are reviewed and are negative PMFSH Past Medical History Medical History Benign prostatic hyperplasia with lower urinary tract symptoms Hematuria Hypercalcemia Left lower quadrant pain Other obstructive and reflux uropathy Type 2 diabetes mellitus with unspecified complications Urgency incontinence Urinary frequency Surgical History H/O colonoscopy History of prostate surgery Hx of cystoscopy Hx of cystoscopy Social History Social History Alcohol intake: former Patient Tobacco Use Status: Former Tobacco user Quit Date: 15 years ago Substance Use Type: Crack/Cocaine and Marijuana Advance Directives: No Advance Directives Information Provided: Yes Physical Exam Vital Signs: Vital Signs: Last Vital Signs Temp 98.0 F 06/20/21 20:23 Pulse 66 06/20/21 20:23 Resp 20 06/20/21 20:23 BP 127/75 06/20/21 20:23 Pulse Ox 100 06/20/21 20:23 Body Mass Index 23.0 Appearance: Alert. Oriented X3. No acute distress. ENT: Pharynx normal. Oral Mucosa moist Neck: Normal inspection. Neck supple. CVS: Normal heart rate and rhythm. Pulses normal. Respiratory: No respiratory distress. Equal air entry bilateral, no wheezing /rales/rhonchi Abdomen: Soft and nontender. Bowel sounds are present, no mass palpable, no CVA tenderness Tenderness in left groin area with lymph nodes enlargement size 1 x 1 cm slight tenderness in left epididymis Skin: Skin warm and dry. Normal skin color. Normal skin turgor. Extremities: No lower extremity edema. No calf tenderness Neuro: Oriented X 3. MDM - Male Genitourinary MDM Narrative Medical decision making narrative: Patient with slight lymphadenopathy left inguinal area not pathological workup is negative otherwise scrotal ultrasound negative for epididymitis. Patient taking naproxen at home will discharge him on tramadol advised to follow with PCP. Also bladder scan showed 0 CC of urine of post voidal Lab Data Attestation: I reviewed the patient's lab results. Result diagrams: 06/20/21 18:36 06/20/21 18:36 Labs: Lab Results 06/20/21 06/20/21 06/20/21 Range/Units 18:36 18:36 18:38 WBC 5.8 (4.8-10.8) X10*3/uL RBC 4.03 L (4.60-5.80) X10*6/uL Hgb 12.4 L (14.0-18.0) g/dl Hct 37.1 L (42-52) % MCV 92.1 (80-98) fL MCH 30.8 (27.0-33.0) pg MCHC 33.4 (31.0-36.0) g/dl RDW 12.5 (11.0-16.0) % Plt Count 164 (160-400) X10*3/uL MPV 10.4 (9.4-12.4) fL Immature Gran % (Auto) 0.2 (0.0-0.4) % Neut % (Auto) 65.2 (45-73) % Lymph % (Auto) 27.0 (20-40) % [place] % (Auto) 6.0 (2-11) % Eos % (Auto) 1.4 (0-4) % Baso % (Auto) 0.2 (0-2) % Lymph # (Auto) 1.6 (1.2-4.9) X10*3/uL [place] # (Auto) 0.4 (0.1-1.2) X10*3/uL Eos # (Auto) 0.1 (0.0-0.4) X10*3/uL Baso # (Auto) 0.0 (0.0-0.2) X10*3/uL Abs Immat Gran (auto) 0.01 (0.00-0.03) X10*3/uL Absolute Neuts (auto) 3.8 (2.0-8.3) X10*3/uL Absolute Nucleated RBC 0.000 (0.0-0.012) X10*3/uL Nucleated RBC % (auto) 0.0 (0.0-0.2) /100WBC Sodium 142 (135-145) mmol/L Potassium 4.2 (3.3-5.1) mmol/L Chloride 106 (96-108) mmol/L Carbon Dioxide 29 (22-29) mmol/L Anion Gap 11 L (12-20) BUN 19 H (9-16) mg/dL Creatinine 0.90 (0.5-1.4) mg/dL Estim Creat Clear Calc 104.7 Estimated GFR > 60 Random Glucose 137 H (60-115) mg/dL Calcium 9.1 D (8.4-10.2) mg/dL Total Bilirubin 0.2 (0.0-1.0) mg/dL AST 11 (5-37) U/L ALT 13 (0-40) U/L Alkaline Phosphatase 93 (39-117) U/L Total Protein 6.3 L (6.5-8.0) g/dL Albumin 4.3 (3.5-5.0) g/dL Urine Color YELLOW Urine Appearance CLEAR Urine pH 6.0 (5.0-8.0) Ur Specific [place] 1.025 (1.005-1.025) Urine Protein NEG (NEG-TRACE) MG/DL Urine Glucose (UA) NEG (NEG) MG/DL Urine Ketones 5 (NEG) MG/DL Urine Blood NEG (NEG) Urine Nitrite NEG (NEG) Ur Leukocyte Esterase NEG (NEG) Discharge Plan Discharge Clinical Impression: Left groin pain Patient Disposition: Home, Self-Care Instructions: Groin Pain (ED) Additional Instructions: Your pain in left groin is likely from lymph nodes enlargement/muscular Take pain medication as advised and follow with the urologist Prescriptions: New tramadol 50 mg tablet 50 mg PO Q6H PRN (Reason: pain) Qty: 20 RF: 0 No Action tamsulosin 0.4 mg capsule 0.4 mg PO BEDTIME Qty: 30 RF: 6 oxybutynin chloride 5 mg tablet extended release 24hr 10 mg PO DAILY 30 Days Qty: 60 RF: 6 lidocaine 5 % adhesive patch,medicated 1 patch topical DAILY PRN (Reason: pain (scale score 1-3)) 5 Days Qty: 5 RF: 0 lisinopril 2.5 mg tablet 2.5 mg PO DAILY RF: 0 quetiapine 25 mg tablet 25 mg PO BEDTIME RF: 0 clonazepam 0.5 mg tablet 0.5 mg PO BEDTIME RF: 0 naproxen 500 mg tablet 500 mg PO BID RF: 0 atorvastatin 20 mg tablet 20 mg PO DAILY RF: 0 baclofen 20 mg tablet 20 mg PO RF: 0 pregabalin 300 mg capsule 300 mg PO BID RF: 0 bacitracin 500 unit/gram ointment topical BID RF: 0 carbamazepine 200 mg tablet 200 mg PO BEDTIME RF: 0 cyanocobalamin (vitamin B-12) 1,000 mcg tablet 1,000 mcg PO DAILY RF: 0 sitagliptin 100 mg tablet 100 mg PO DAILY RF: 0 metformin 1,000 mg tablet 1,000 mg PO BID RF: 0 duloxetine 30 mg capsule,delayed release(DR/EC) 30 mg PO DAILY RF: 0 dicyclomine 10 mg capsule 0 mg PO RF: 0 finasteride 5 mg tablet 5 mg PO DAILY 90 Days Qty: 90 RF: 1 glipizide 2.5 mg tablet extended release 24hr 2.5 mg PO DAILY RF: 0 ibuprofen 600 mg tablet 600 mg PO TID RF: 0 duloxetine 60 mg capsule,delayed release(DR/EC) 60 mg PO DAILY RF: 0 bupropion HCl 150 mg tablet extended release 24 hr 150 mg PO QAM RF: 0 prazosin 2 mg capsule 2 mg PO BEDTIME RF: 0 bupropion HCl 300 mg tablet extended release 24 hr 300 mg PO QAM RF: 0 prazosin 5 mg capsule 5 mg PO BEDTIME RF: 0 glimepiride 1 mg tablet 1 mg PO DAILY RF: 0 lamotrigine 200 mg tablet 200 mg PO BID RF: 0
[2021-06-20 20:23] VITALS: BP 127/75; PULSE 66; RESP 20; TEMP 36.7; O2SAT 100
[2021-06-20 22:18] VITALS: BP 117/73; PULSE 60; RESP 5; O2SAT 99
[2021-06-20] MEDS: traMADoL HCL 50 MG TABLET PO (22:20)
== END 2021-06-20 22:24 | disposition home or self-care (01) ==
PROVIDERS: Emergency Provider Internal Medicine; PCP Internal Medicine
DX: R10.32 Left lower quadrant pain (principal); E11.9 Type 2 diabetes mellitus without complications
CPT/HCPCS: 36415; 51798; 76870; 80053; 81003; 85025; 99284

== ENCOUNTER → 2021-07-12 15:06 | Outpatient (BNVA) | payer OTHER, SELFPAY | PROVIDERS: PCP Internal Medicine; Visit Provider Urology | DX: R35.0 Frequency of micturition (principal); R39.15 Urgency of urination; R10.32 Left lower quadrant pain; G89.29 Other chronic pain | CPT/HCPCS: 51798; 99212 ==

== ENCOUNTER 2021-07-26 15:13 | Outpatient (REF) | payer OTHER, SELFPAY ==
[2021-07-26 16:40] LABS: Alanine Aminotransferase 11 U/L (0-40); Albumin Level 4.4 g/dL (3.5-5.0); Alkaline Phosphatase 97 U/L (39-117); Anion Gap 12 (12-20); Aspartate Amino Transferase 10 U/L (5-37); Bilirubin Total 0.2 mg/dL (0.0-1.0); Blood Urea Nitrogen 17 mg/dL (9-16); Calcium 9.7 mg/dL (8.4-10.2); Carbon Dioxide 30 mmol/L (22-29); Chloride 105 mmol/L (96-108); Cholesterol 111 mg/dL; Estimated Glomerular Filt Rate > 60; Glucose Random 92 mg/dL (60-115); HDL Cholesterol 46 mg/dL; LDL Cholesterol Calculated 49 mg/dl; Potassium 4.6 mmol/L (3.3-5.1); Sodium 142 mmol/L (135-145); Total Protein 6.5 g/dL (6.5-8.0); Triglycerides 82 mg/dL
[2021-07-26 16:42] LABS: Estimated Average Glucose 123 mg/dL; Hemoglobin A1c % 5.9 %
[2021-07-26 16:54] LABS: Creatinine Urine 199.67 mg/dL
[2021-07-26 17:04] LABS: Thyroid Stimulating Hormone 0.94 uIU/mL (0.32-4.0); Vitamin D 25-OH Total 31.1 ng/mL (>30)
== END 2021-07-26 15:14 | disposition home or self-care (01) ==
LOC: HO.LAB 15:13
PROVIDERS: PCP Internal Medicine; Visit Provider Internal Medicine
DX: E11.9 Type 2 diabetes mellitus without complications (principal); E78.00 Pure hypercholesterolemia, unspecified; I10 Essential (primary) hypertension; R63.4 Abnormal weight loss
CPT/HCPCS: 36415; 80053; 80061; 82043; 82306; 83036; 84443

== ENCOUNTER → 2021-08-11 11:29 | Outpatient (BNVA) | payer OTHER, SELFPAY | PROVIDERS: PCP Internal Medicine; Visit Provider Urology | DX: R10.32 Left lower quadrant pain (principal); R35.0 Frequency of micturition; R39.15 Urgency of urination; G89.29 Other chronic pain | CPT/HCPCS: Q3014 ==

== ENCOUNTER → 2021-09-08 14:22 | Outpatient (BNVA) | payer OTHER, SELFPAY | PROVIDERS: PCP Internal Medicine; Visit Provider Urology | DX: N41.9 Inflammatory disease of prostate, unspecified (principal); N39.0 Urinary tract infection, site not specified; N40.1 Benign prostatic hyperplasia with lower urinary tract symptoms; R35.1 Nocturia | CPT/HCPCS: 99212 ==

== ENCOUNTER → 2021-09-14 09:39 | Outpatient (BNVA) | payer OTHER, SELFPAY | PROVIDERS: PCP Internal Medicine; Visit Provider Urology | DX: N41.9 Inflammatory disease of prostate, unspecified (principal) | CPT/HCPCS: Q3014 ==

== ENCOUNTER → 2021-09-29 08:19 | Outpatient (BNVA) | payer OTHER, SELFPAY | PROVIDERS: PCP Internal Medicine; Visit Provider Urology | DX: N41.9 Inflammatory disease of prostate, unspecified (principal) | CPT/HCPCS: 51798; 99212 ==

== ENCOUNTER 2021-10-30 12:30 | Day surgery (SDC) | payer OTHER, SELFPAY ==
[2021-10-25 16:39] VITALS: BMI 21.7
[2021-10-30 12:59] VITALS: BP 106/69; PULSE 78; RESP 16; TEMP 36.5; O2SAT 97
[2021-10-30 13:05] LABS: Glucose, Whole Blood 124 mg/dL (60-115)
--- NOTE | 2021-10-30 14:15 | HO.ANESPROP2 ---
HPI - Anesthesia Eval Consult details Narrative: 51 yo male for cystoscopy, bladder fulguration PMF Active Problems Active Problems: All Active Problems (Updated 10/25/21 @ 16:48 by Janeen Puentes RN) BPH w urinary obs/LUTS (Acute) Groin pain, chronic, left (Acute) Urinary urgency (Acute) Prostatitis (Acute) Hematuria (Acute) Left lower quadrant pain (Acute) Urinary frequency (Acute) Past Medical History Medical History Arthritis Benign prostatic hyperplasia with lower urinary tract symptoms Hematuria Hypercalcemia Left lower quadrant pain Low back pain Other obstructive and reflux uropathy Peripheral neuropathy PTSD (post-traumatic stress disorder) Type 2 diabetes mellitus with unspecified complications Unintentional weight loss Urgency incontinence Urinary frequency Family History Family history of problems with anesthesia: No Surgical History Surgical History H/O colonoscopy History of prostate surgery Hx of cardiac catheterization Hx of cystoscopy Hx of cystoscopy History of Problems with Anesthesia: No Social History Social History Are you a primary child care center administrator to a significant other at home: No Do you presently have visiting nurse or other home services: Yes ([employer]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 If so, by whom?: No Are you DNR?: No Advance Directives: No Advance Directives Information Provided: Yes Recently lost weight without trying: Yes How much weight loss: 34pounds or more Eating poorly because of decreased appetite: Yes Nutrition screen score: 7 Poor oral hygiene: No Meds Allergies Allergy/AdvReac Type Severity Reaction Status Date / Time linagliptin [From TRADJENTA] Allergy Intermediate RASH Verified 10/30/21 12:52 Rlwkmad-YOQ-RiY Reductase Allergy Intermediate ITCHY,SKIN Verified 10/30/21 12:52 Inhibitor BREAKDOWN [GGTNOXR-RKN-MUY REDUCTASE INHIBITOR] Active Medications: Current Medications Levofloxacin (Levaquin) 500 mg in 100 mls @ 100 mls/hr IV PREOP ONE Stop: 10/30/21 14:54 Home Medications Medication Instructions Recorded Confirmed Last Taken Type baclofen 20 mg tablet 20 mg PO BEDTIME 08/31/20 10/25/21 Unknown History carbamazepine 200 mg tablet 200 mg PO BEDTIME 08/31/20 10/25/21 Unknown History clonazepam 0.5 mg tablet 0.5 mg PO BEDTIME 08/31/20 10/25/21 Unknown History cyanocobalamin (vitamin B-12) 1,000 mcg PO DAILY 08/31/20 10/25/21 Unknown History 1,000 mcg tablet lisinopril 2.5 mg tablet 2.5 mg PO DAILY 08/31/20 10/25/21 Unknown History metformin 1,000 mg tablet 1,000 mg PO BID 08/31/20 10/25/21 Unknown History pregabalin 300 mg capsule 300 mg PO BID 08/31/20 10/25/21 10/30/21 07:30 History quetiapine 25 mg tablet 25 mg PO BEDTIME 08/31/20 10/25/21 Unknown History sitagliptin 100 mg tablet 100 mg PO DAILY 08/31/20 10/25/21 Unknown History bupropion HCl 300 mg 24 hr tablet, 300 mg PO QAM 10/14/20 10/25/21 10/30/21 07:30 History extended release duloxetine 60 mg capsule,delayed 90 mg PO DAILY 10/14/20 10/25/21 10/30/21 07:30 History release glimepiride 1 mg tablet 1 mg PO DAILY 10/14/20 Unknown History glipizide 2.5 mg tablet, extended 2.5 mg PO DAILY 10/14/20 10/25/21 Unknown History release 24 hr lamotrigine 200 mg tablet 200 mg PO BID 10/14/20 10/25/21 12/19/20 History prazosin 5 mg capsule 7 mg PO BEDTIME 10/14/20 10/25/21 Unknown History blood sugar diagnostic #10 ea 02/15/21 Unknown History blood-glucose meter #1 ea 02/15/21 Unknown History rosuvastatin 10 mg tablet 10 mg PO BEDTIME 07/12/21 10/25/21 Unknown History naproxen 500 mg tablet (Naprosyn) 500 mg PO BEDTIME PRN 10/25/21 10/25/21 Unknown History Exam Exam Date and Time: October 30, 2021 1415 Height,Weight and Vital Signs: Height 6 ft Weight 72.575 kg Last Vital Signs Temp 97.7 F 10/30/21 12:59 Pulse 78 10/30/21 12:59 Resp 16 10/30/21 12:59 BP 106/69 10/30/21 12:59 Pulse Ox 97 10/30/21 12:59 Pertinent Lab Results Pertinent Lab Results: Laboratory Tests 10/30/21 13:01 POC Glucose 124 H Airway Mallampati Class: II TM Dist: >3cm Neck ROM: Limited (S/p cervical fusion) Partial: Upper Heart: RRR Lungs: CTAB Assessment and Plan Assessment Anesthesia Assessment: Anesthesia Plan Discussed and Chart Reviewed Final Anesthetic Review Family History of Problems with Anesthesia: No History of Problems with Anesthesia: No NPO: Yes ASA Class: II Final Preanesthetic Review: No Changes in Pt Med Stat, Meds/Allgs Chart Reviewed, Consent Obtained/Reviewed and Anes Risks/Benef Reviewed Patient Risk: Intermediate Procedure Risk: Low Assessment/Block/Sedation in SS: Assess/Block/Sedation-SS Anesthetic Plan Anesthetic Plan: GA Disposition: Standard PACU
--- NOTE | 2021-10-30 14:54 | MHC.SHP ---
Pre-Procedural Eval Section A Date of Service: 10/30/21 The patient is an INPATIENT: No Changes since office visit: No Cold of Flu in the past 2 weeks, No New Medical Problems, No Changes in Medication and No Patient answered all questions The History & Physical has been completed within 30 days and I have reviewed it.: No Section B Chief Complaint: disease of prostate Details of Present Illness: has had bladder pain and prior fulguration. Recommendation for cystoscopy, bladder biopsy fulguration Relevant Social History: None Present Medications: see Short Stay Collaborative assessment Medical History: No relevant PMH History of Previous Operations: Relevant previous surgery/procedure and date(s) Allergies: Allergies Allergy/AdvReac Type Severity Reaction Status Date / Time linagliptin [From TRADJENTA] Allergy Intermediate RASH Verified 10/30/21 12:52 Dnkgekr-HRV-GgW Reductase Allergy Intermediate ITCHY,SKIN Verified 10/30/21 12:52 Inhibitor BREAKDOWN [HCEWPMN-HLM-RYZ REDUCTASE INHIBITOR] Review of Systems Sugical H&P ROS: Negative: Constitution, Cardiovascular, Respiratory, Neurological, Psychiatric, Hem-Onc, Allergic/Immunologic, Gastrointestinal, Genitourinary, Musculoskeletal, Integumentary, Endocrine and Eyes/Ears/Nose/Throat Exam Surgical H&P Exam: Normal: HEENT, Normal: Heart, Normal: Lungs, Normal: Extremities, Normal: Abdomen, Normal: Skin and Normal: Neurological Plan Diagnosis/Plan: Unchanged ( cystoscopy, bladder biopsy, fulguration) I have reviewed the history and physical and performed a pertinent physical examination on my patient. No changes have occurred unless specified.
--- NOTE | 2021-10-30 15:43 | P.OP_ITS ---
Operative Note Operative Note Date of Service: 10/30/21 Narrative: PreOperative Diagnosis: pelvic urgency and frequency Post Operative Diagnosis: Interstitial cystitis with pelvic pain Procedure: Hydrodistention within bladder biopsy and fulguration Surgeon: Dr Eric Randhawa Anesthesia: General Indications for procedure: 51-year-old male. Urgency and frequency non responsive to oral medications. Recommendation for cystoscopy with biopsy. Procedure: After informed consent was verified the patient was brought to the operating room and placed in a supine position. Anesthesia was administered per protocol. The patient was placed in a modified dorsal lithotomy position and prepped and draped in sterile fashion. Safety pause time-out was observed. Antibiotics being given. A 22 [place]ian cystoscope was used to empty the bladder. The bladder was then filled washed been examined. Prominent Street secondary to collagen deposition were noted and small vessels noted which were consistent with interstitial cystitis. Decision was made to perform hydrodistention. Hydrodistention of the bladder was performed. The bladder was filled and allowed to sit for 2 minutes. Filling was from a height of 1 m. On the 1st fill there was Seven hundred cc within the bladder. Cystoscopy revealed glomerulations consistent with interstitial cystitis. Second filling of the bladder was performed in similar fashion. Bladder biopsies were performed and fulguration used for control. Volume was approximately 950 cc. Terminal hematuria noted. The bladder was emptied. mixture of lidocaine and lidocaine gel placed per cystoscope. The patient tolerated procedure well was extubated in operating room transferred in stable condition to the recovery area. Appropriate postprocedure pain medication was provided. Pathology: bladder biopsy Drains: None
[2021-10-30 15:51] VITALS: BP 118/76; PULSE 62; RESP 12; TEMP 36.6; O2SAT 96
[2021-10-30 15:55] VITALS: BP 112/71; PULSE 63; RESP 16; O2SAT 96
[2021-10-30 16:00] VITALS: BP 114/75; PULSE 70; RESP 16; O2SAT 97
[2021-10-30] MEDS: Acetaminophen 325 MG TABLET 650 MG PO (16:00)
[2021-10-30] MEDS: Phenazopyridine HCL 100 MG TABLET PO (16:01)
[2021-10-30 16:06] VITALS: BP 117/70; PULSE 63; RESP 16; O2SAT 97
[2021-10-30 16:22] VITALS: BP 122/76; PULSE 60; RESP 16; TEMP 36.4; O2SAT 98
[2021-10-30] MEDS: oxyCODONE HCl Immed Release 5 MG TABLET PO (16:33)
== END 2021-10-30 16:50 | disposition home or self-care (01) ==
PROVIDERS: PCP Internal Medicine; Visit Provider Urology
PROC: 0T5B8ZZ Destruction of Bladder, Via Natural or Artificial Opening Endoscopic (ICD-10-PCS; CPT 52260; principal; 2021-10-30 14:40)
DX: N30.10 Interstitial cystitis (chronic) without hematuria (principal); N41.9 Inflammatory disease of prostate, unspecified; N40.1 Benign prostatic hyperplasia with lower urinary tract symptoms; N13.8 Other obstructive and reflux uropathy; R39.15 Urgency of urination; R35.0 Frequency of micturition; R31.9 Hematuria, unspecified; E83.52 Hypercalcemia; E11.9 Type 2 diabetes mellitus without complications; Z79.84 Long term (current) use of oral hypoglycemic drugs; Z88.8 Allergy status to other drugs, medicaments and biological substances; F12.90 Cannabis use, unspecified, uncomplicated; F14.90 Cocaine use, unspecified, uncomplicated; Z87.891 Personal history of nicotine dependence; Z79.899 Other long term (current) drug therapy
CPT/HCPCS: 52260; 52204; 82947; 88305; J1100; J1956; J2250; J2405; J3010

== ENCOUNTER → 2021-11-07 12:50 | Outpatient (BNVA) | payer OTHER, SELFPAY | PROVIDERS: PCP Internal Medicine; Visit Provider Urology | DX: N40.1 Benign prostatic hyperplasia with lower urinary tract symptoms (principal); N13.8 Other obstructive and reflux uropathy; N30.10 Interstitial cystitis (chronic) without hematuria | CPT/HCPCS: Q3014 ==

== ENCOUNTER → 2021-12-05 14:06 | Outpatient (BNVA) | payer OTHER, SELFPAY | PROVIDERS: PCP Internal Medicine; Visit Provider Urology | DX: Z13.89 Encounter for screening for other disorder (principal) ==

== ENCOUNTER → 2021-12-20 10:45 | Outpatient (BNVA) | payer OTHER, SELFPAY | PROVIDERS: PCP Internal Medicine; Visit Provider Urology | DX: Z13.89 Encounter for screening for other disorder (principal) | CPT/HCPCS: Q3014 ==

== ENCOUNTER → 2021-12-27 13:34 | Outpatient (BNVA) | payer OTHER, SELFPAY | PROVIDERS: PCP Internal Medicine; Visit Provider Urology | DX: N30.10 Interstitial cystitis (chronic) without hematuria (principal); R39.15 Urgency of urination | CPT/HCPCS: 51700; 51798; 99212 ==

== ENCOUNTER → 2022-01-25 11:16 | Outpatient (BNVA) | payer OTHER, SELFPAY | PROVIDERS: PCP Internal Medicine; Visit Provider Urology | DX: Z13.89 Encounter for screening for other disorder (principal) | CPT/HCPCS: Q3014 ==

== ENCOUNTER 2022-02-05 12:21 | Day surgery (SDC) | payer OTHER, SELFPAY ==
--- NOTE | 2022-02-02 11:16 | HO.ANESPROP2 ---
Documented by User: Edda Hoang NP 02/02/22 11:19 HPI - Anesthesia Eval Consult details Narrative: 51yo M for Cystoscopy Bladder with Botox Injection s/p cysto, bladder fulguration 10/2021 with GA-LMA 4 PMFSH Active Problems Active Problems: All Active Problems (Updated 12/27/21 @ 13:44 by Eric Randhawa MD) Chronic UTI (urinary tract infection) (Acute) Interstitial cystitis (chronic) without hematuria (Acute) BPH w urinary obs/LUTS (Acute) Groin pain, chronic, left (Acute) Urinary urgency (Acute) Prostatitis (Acute) Hematuria (Acute) Left lower quadrant pain (Acute) Urinary frequency (Acute) Past Medical History Medical History Arthritis Benign prostatic hyperplasia with lower urinary tract symptoms Hematuria Hypercalcemia Left lower quadrant pain Low back pain Other obstructive and reflux uropathy Peripheral neuropathy PTSD (post-traumatic stress disorder) Type 2 diabetes mellitus with unspecified complications Unintentional weight loss Urgency incontinence Urinary frequency Family History Family history of problems with anesthesia: No Surgical History Surgical History H/O colonoscopy History of prostate surgery Hx of cardiac catheterization Hx of cystoscopy Hx of cystoscopy History of Problems with Anesthesia: No Social History Social History Are you a primary personal carer to a significant other at home: No Do you presently have visiting nurse or 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) Alcohol intake: former Patient Tobacco Use Status: Former Tobacco user Quit Date: 2006 Tobacco use type: Cigarette Use of substances other than those prescribed or required for medical reasons: No Substance Use Type: Crack/Cocaine and Marijuana Are you DNR?: No Advance Directives: No Advance Directives Information Provided: Yes Meds Allergies Allergy/AdvReac Type Severity Reaction Status Date / Time linagliptin [From TRADJENTA] Allergy Intermediate RASH Verified 01/25/22 11:17 Ccomsjl-EHK-GbR Reductase Allergy Intermediate ITCHY,SKIN Verified 01/25/22 11:17 Inhibitor BREAKDOWN [HVLEKMM-BZN-OYF REDUCTASE INHIBITOR] Home Medications Medication Instructions Recorded Confirmed Last Taken Type baclofen 20 mg tablet 20 mg PO BEDTIME 08/31/20 02/05/22 Unknown History carbamazepine 200 mg tablet 200 mg PO BEDTIME 08/31/20 02/05/22 Unknown History clonazepam 0.5 mg tablet 0.5 mg PO BEDTIME 08/31/20 02/05/22 Unknown History cyanocobalamin (vitamin B-12) 1,000 mcg PO DAILY 08/31/20 02/05/22 Unknown History 1,000 mcg tablet lisinopril 2.5 mg tablet 2.5 mg PO DAILY 08/31/20 02/05/22 Unknown History metformin 1,000 mg tablet 1,000 mg PO BID 08/31/20 02/05/22 Unknown History pregabalin 300 mg capsule 300 mg PO BID 08/31/20 02/05/22 10/30/21 07:30 History quetiapine 25 mg tablet 25 mg PO BEDTIME 08/31/20 02/05/22 Unknown History sitagliptin 100 mg tablet 100 mg PO DAILY 08/31/20 02/05/22 Unknown History bupropion HCl 300 mg 24 hr tablet, 300 mg PO QAM 10/14/20 02/05/22 10/30/21 07:30 History extended release duloxetine 60 mg capsule,delayed 90 mg PO DAILY 10/14/20 02/05/22 10/30/21 07:30 History release lamotrigine 200 mg tablet 200 mg PO BID 10/14/20 02/05/22 12/19/20 History prazosin 5 mg capsule 7 mg PO BEDTIME 10/14/20 02/05/22 Unknown History blood sugar diagnostic #10 ea 02/15/21 02/05/22 Unknown History blood-glucose meter #1 ea 02/15/21 02/05/22 Unknown History rosuvastatin 10 mg tablet 10 mg PO BEDTIME 07/12/21 02/05/22 Unknown History naproxen 500 mg tablet (Naprosyn) 500 mg PO BEDTIME PRN pain 10/25/21 02/05/22 Unknown History finasteride 5 mg tablet 5 mg PO DAILY 11/07/21 02/05/22 Unknown History bupropion HCl 150 mg 24 hr tablet, 150 mg PO QAM 12/20/21 02/05/22 Unknown History extended release duloxetine 30 mg capsule,delayed 30 mg PO DAILY 12/20/21 02/05/22 Unknown History release prazosin 2 mg capsule 2 mg PO BEDTIME 12/20/21 02/05/22 Unknown History Exam Exam Date and Time: February 02, 2022 1116 Pertinent Lab Results Pertinent Lab Results: Laboratory Tests 06/20/21 07/26/21 18:36 15:28 WBC 5.8 Hgb 12.4 L Hct 37.1 L Plt Count 164 Sodium 142 Potassium 4.6 Chloride 105 Carbon Dioxide 30 H BUN 17 H Creatinine 0.92 Assessment and Plan Assessment Anesthesia Assessment: Chart Reviewed Final Anesthetic Review Family History of Problems with Anesthesia: No History of Problems with Anesthesia: No Documented by User: Eliud Shafer MD 02/05/22 16:46 HPI - Anesthesia Eval Consult details Narrative: 51yo M for Cystoscopy Bladder with Botox Injection s/p cysto, bladder fulguration 10/2021 with GA-LMA 4 back pain with radiation to LE with tingling and numbness left greater than right neuropathy , LE gives out , UE weakness numbness and tingling PMFSH Past Medical History Medical History Arthritis Benign prostatic hyperplasia with lower urinary tract symptoms Hematuria Hypercalcemia Left lower quadrant pain Low back pain Other obstructive and reflux uropathy Peripheral neuropathy PTSD (post-traumatic stress disorder) Type 2 diabetes mellitus with unspecified complications Unintentional weight loss Urgency incontinence Urinary frequency Surgical History Surgical History H/O colonoscopy History of prostate surgery Hx of cardiac catheterization Hx of cystoscopy Hx of cystoscopy Social History Social History Are you a primary personal carer to a significant other at home: No Do you presently have visiting nurse or 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) Alcohol intake: former Patient Tobacco Use Status: Former Tobacco user Quit Date: 2006 Tobacco use type: Cigarette Use of substances other than those prescribed or required for medical reasons: No Substance Use Type: Crack/Cocaine and Marijuana Are you DNR?: No Advance Directives: No Advance Directives Information Provided: Yes Meds Allergies Allergy/AdvReac Type Severity Reaction Status Date / Time linagliptin [From TRADJENTA] Allergy Intermediate RASH Verified 01/25/22 11:17 Pjjzjah-AIA-UpA Reductase Allergy Intermediate ITCHY,SKIN Verified 01/25/22 11:17 Inhibitor BREAKDOWN [ARXYLAN-EUI-MKE REDUCTASE INHIBITOR] Home Medications Medication Instructions Recorded Confirmed Last Taken Type baclofen 20 mg tablet 20 mg PO BEDTIME 08/31/20 02/05/22 Unknown History carbamazepine 200 mg tablet 200 mg PO BEDTIME 08/31/20 02/05/22 Unknown History clonazepam 0.5 mg tablet 0.5 mg PO BEDTIME 08/31/20 02/05/22 Unknown History cyanocobalamin (vitamin B-12) 1,000 mcg PO DAILY 08/31/20 02/05/22 Unknown History 1,000 mcg tablet lisinopril 2.5 mg tablet 2.5 mg PO DAILY 08/31/20 02/05/22 Unknown History metformin 1,000 mg tablet 1,000 mg PO BID 08/31/20 02/05/22 Unknown History pregabalin 300 mg capsule 300 mg PO BID 08/31/20 02/05/22 10/30/21 07:30 History quetiapine 25 mg tablet 25 mg PO BEDTIME 08/31/20 02/05/22 Unknown History sitagliptin 100 mg tablet 100 mg PO DAILY 08/31/20 02/05/22 Unknown History bupropion HCl 300 mg 24 hr tablet, 300 mg PO QAM 10/14/20 02/05/22 10/30/21 07:30 History extended release duloxetine 60 mg capsule,delayed 90 mg PO DAILY 10/14/20 02/05/22 10/30/21 07:30 History release lamotrigine 200 mg tablet 200 mg PO BID 10/14/20 02/05/22 12/19/20 History prazosin 5 mg capsule 7 mg PO BEDTIME 10/14/20 02/05/22 Unknown History blood sugar diagnostic #10 ea 02/15/21 02/05/22 Unknown History blood-glucose meter #1 ea 02/15/21 02/05/22 Unknown History rosuvastatin 10 mg tablet 10 mg PO BEDTIME 07/12/21 02/05/22 Unknown History naproxen 500 mg tablet (Naprosyn) 500 mg PO BEDTIME PRN pain 10/25/21 02/05/22 Unknown History finasteride 5 mg tablet 5 mg PO DAILY 11/07/21 02/05/22 Unknown History bupropion HCl 150 mg 24 hr tablet, 150 mg PO QAM 12/20/21 02/05/22 Unknown History extended release duloxetine 30 mg capsule,delayed 30 mg PO DAILY 12/20/21 02/05/22 Unknown History release prazosin 2 mg capsule 2 mg PO BEDTIME 12/20/21 02/05/22 Unknown History Exam Airway Mallampati Class: III TM Dist: >3cm Neck ROM: Limited Partial: Upper Loose/Missing/Broken Teeth: Yes (Chipped teeth , poor dentition ) Heart: S1,S2 Lungs: b/l breath sounds Assessment and Plan Assessment Anesthesia Assessment: Anesthesia Plan Discussed Final Anesthetic Review NPO: Yes ASA Class: III Final Preanesthetic Review: Meds/Allgs Chart Reviewed, Consent Obtained/Reviewed and Anes Risks/Benef Reviewed Patient Risk: Intermediate Procedure Risk: Intermediate Anesthetic Plan Anesthetic Plan: GA Disposition: Standard PACU
[2022-02-05 13:48] VITALS: BMI 23.0
[2022-02-05 13:49] VITALS: BP 121/76; PULSE 56; RESP 18; TEMP 36.1; O2SAT 99
[2022-02-05] MEDS: Lactated Ringers 1,000 ML 100 ML IVCONT (14:20)
[2022-02-05 14:34] LABS: Glucose, Whole Blood 114 mg/dL (60-115)
[2022-02-05] MEDS: levoFLOXacin 500 MG TABLET PO (14:55)
--- NOTE | 2022-02-05 15:05 | MHC.SHP ---
Pre-Procedural Eval Section A Date of Service: 02/05/22 The patient is an INPATIENT: No Changes since office visit: No Cold of Flu in the past 2 weeks, No New Medical Problems, No Changes in Medication and No Patient answered all questions The History & Physical has been completed within 30 days and I have reviewed it.: No Section B Chief Complaint: Urgency of urination Details of Present Illness: cysto botox of bladder Allergies: Allergies Allergy/AdvReac Type Severity Reaction Status Date / Time linagliptin [From TRADJENTA] Allergy Intermediate RASH Verified 01/25/22 11:17 Othrcts-YWQ-EvO Reductase Allergy Intermediate ITCHY,SKIN Verified 01/25/22 11:17 Inhibitor BREAKDOWN [RZWYXQN-YUL-KSS REDUCTASE INHIBITOR] Review of Systems Sugical H&P ROS: Negative: Constitution, Cardiovascular, Respiratory, Neurological, Psychiatric, Hem-Onc, Allergic/Immunologic, Gastrointestinal, Genitourinary, Musculoskeletal, Integumentary, Endocrine and Eyes/Ears/Nose/Throat Exam Surgical H&P Exam: Normal: HEENT, Normal: Heart, Normal: Lungs, Normal: Extremities, Normal: Abdomen, Normal: Skin and Normal: Neurological Plan Diagnosis/Plan: Unchanged (cysto botox) I have reviewed the history and physical and performed a pertinent physical examination on my patient. No changes have occurred unless specified.
--- NOTE | 2022-02-05 15:33 | W.PM.OPN ---
Operative Note Operative Note Date of Service: 02/05/22 Narrative: PreOperative Diagnosis: Overactive bladder with failure of medications Post Operative Diagnosis: Overactive bladder with failure of medications Procedure: Cystoscopy with injection 100 units Botox intra detrusor muscle Surgeon: Dr Eric Randhawa Anesthesia: Sedation Indications for procedure: prior trial of multiple different overactive bladder medications for frequency and urgency and nocturia. These have failed. Question of interstitial cystitis but non responsive to IC diet. Here for Botox injection to bladder. Is aware the risks and benefits particularly related to retention. Procedure: After informed consent was verified the patient was brought to the operating room and placed in a supine position. Anesthesia was administered per protocol. Cystoscopy performed with 22 [place]e cystoscope. Bladder was emptied of urine. Bladder was refilled. Using 100 units of Botox mixed in 10 cc of normal saline injections were placed at the back wall of the bladder. 0.5cc placed at each injection site. Injections were placed in a grid 5 across and 4 high. Injections were placed from the inferior to superior position. Trabeculations on the bladder wall with targeted for each injection site. Procedure was tolerated well. Patient was extubated and transferred in stable condition to the recovery area. Pathology: None Drains: None
[2022-02-05 15:56] VITALS: BP 106/63; PULSE 64; RESP 9; TEMP 36.3; O2SAT 100
[2022-02-05 16:11] VITALS: BP 117/69; PULSE 65; RESP 18; O2SAT 99
[2022-02-05 16:18] VITALS: TEMP 36.4; O2SAT 97
[2022-02-05] MEDS: Phenazopyridine HCL 100 MG TABLET PO (16:35)
[2022-02-05] MEDS: Acetaminophen 325 MG TABLET 650 MG PO (16:35)
== END 2022-02-05 16:52 | disposition home or self-care (01) ==
PROVIDERS: PCP Internal Medicine; Visit Provider Urology
PROC: 3E0K8GC Introduction of Other Therapeutic Substance into Genitourinary Tract, Via Natural or Artificial Opening Endoscopic (ICD-10-PCS; CPT 52287; principal; 2022-02-05 14:50)
DX: N32.81 Overactive bladder (principal); N40.1 Benign prostatic hyperplasia with lower urinary tract symptoms; R35.1 Nocturia; R39.15 Urgency of urination; G62.9 Polyneuropathy, unspecified; E11.9 Type 2 diabetes mellitus without complications; Z79.84 Long term (current) use of oral hypoglycemic drugs; Z79.899 Other long term (current) drug therapy; Z79.1 Long term (current) use of non-steroidal anti-inflammatories (NSAID); Z88.8 Allergy status to other drugs, medicaments and biological substances; Z87.891 Personal history of nicotine dependence; F14.90 Cocaine use, unspecified, uncomplicated; F12.90 Cannabis use, unspecified, uncomplicated
CPT/HCPCS: 52287; 82947; J0585; J1100; J1956; J2250; J2405; J3010

== ENCOUNTER 2022-02-10 08:33 | Outpatient (REF) | payer OTHER, SELFPAY ==
[2022-02-10 09:36] LABS: Estimated Average Glucose 128 mg/dL; Hemoglobin A1c % 6.1 %
[2022-02-10 09:43] LABS: Alanine Aminotransferase 17 U/L (0-40); Albumin Level 4.5 g/dL (3.5-5.0); Alkaline Phosphatase 96 U/L (39-117); Anion Gap 10 (12-20); Aspartate Amino Transferase 11 U/L (5-37); Bilirubin Total 0.3 mg/dL (0.0-1.0); Blood Urea Nitrogen 22 mg/dL (9-16); Calcium 9.5 mg/dL (8.4-10.2); Carbon Dioxide 29 mmol/L (22-29); Chloride 107 mmol/L (96-108); Estimated Glomerular Filt Rate > 60; Glucose Random 131 mg/dL (60-115); Potassium 4.3 mmol/L (3.3-5.1); Sodium 142 mmol/L (135-145); Total Protein 6.5 g/dL (6.5-8.0)
[2022-02-10 09:51] LABS: Carbamazepine Tegretol 3.7 mcg/mL (5.0-12.0)
== END 2022-02-10 08:34 | disposition home or self-care (01) ==
LOC: HO.LAB 08:33
PROVIDERS: PCP Internal Medicine; Visit Provider Internal Medicine
DX: E11.9 Type 2 diabetes mellitus without complications (principal); I10 Essential (primary) hypertension; Z79.899 Other long term (current) drug therapy
CPT/HCPCS: 36415; 80053; 80156; 83036

== ENCOUNTER → 2022-02-20 12:50 | Outpatient (BNVA) | payer OTHER, SELFPAY | PROVIDERS: PCP Internal Medicine; Visit Provider Urology | DX: N30.10 Interstitial cystitis (chronic) without hematuria (principal); N32.81 Overactive bladder; R39.15 Urgency of urination | CPT/HCPCS: Q3014 ==

== ENCOUNTER 2022-03-19 18:46 | Outpatient (REF) | payer OTHER, SELFPAY ==
--- NOTE | ~2022-03-19 | MR_ITS ---
EXAMINATION: MR LUMBAR SPINE WITHOUT CONTRAST CLINICAL INFORMATION: Left-sided radiculopathy. COMPARISON: CT abdomen and pelvis 10/06/2020. TECHNIQUE: MRI of the lumbar spine was obtained using routine sequences without contrast. FINDINGS: Alignment is normal. Vertebral body heights are preserved. No acute bone marrow signal changes. There is slight disc desiccation at multiple levels without substantial loss of intervertebral disc height. The tip of the conus medullaris is located at L1. No mass effect on the conus. Visualized distal cord signal intensity is normal. At L1-L2 the annular contour is normal. No canal or neuroforaminal compromise. At L2-L3 there is a left foraminal to far lateral annular fissure associated with a slightly bulging disc. No canal stenosis. No mass effect on the traversing or foraminal nerve roots. At L3-L4 there is a left foraminal to far lateral annular fissure associated with a slightly bulging disc. No canal stenosis. Mild mass effect on the extraforaminal segment of the left L3 nerve root. At L4-L5 there is a slightly bulging disc. Bilateral facet degenerative change. No canal stenosis. No mass effect on the traversing or foraminal nerve roots. At L5-S1 there is a small left subarticular protrusion superimposed upon a slightly bulging disc. Bilateral facet degenerative change. No canal stenosis. No mass effect on the traversing or foraminal nerve roots. Limited visualization of the retroperitoneal anatomy reveals no abnormal finding. Psoas and paraspinal muscle groups are symmetric. MR/MR lumbar spine wo con IMPRESSION: There is relatively mild disc degeneration at multiple levels within the lumbar spine. An asymmetrically bulging disc at L3-L4 causes mild mass effect on the extraforaminal segment of the right L3 nerve root. Otherwise no substantial mass effect on the traversing or foraminal nerve roots elsewhere within the lumbar spine. No canal stenosis.
== END 2022-03-19 18:47 | disposition home or self-care (01) ==
LOC: HO.MRI 18:46
PROVIDERS: Visit Provider Internal Medicine
DX: M54.16 Radiculopathy, lumbar region (principal)
CPT/HCPCS: 72148

== ENCOUNTER → 2022-05-23 10:01 | Outpatient (BNVA) | payer OTHER, SELFPAY | PROVIDERS: PCP Internal Medicine; Visit Provider Urology | DX: N30.10 Interstitial cystitis (chronic) without hematuria (principal); N32.81 Overactive bladder; R10.32 Left lower quadrant pain | CPT/HCPCS: 51798; 99212 ==

== ENCOUNTER 2022-06-03 19:47 | Emergency (ER) | payer OTHER, SELFPAY ==
[2022-06-03 20:00] VITALS: BP 140/60; BP 146/68; PULSE 70; RESP 16; TEMP 36.6; O2SAT 96; O2SAT 99; BMI 24.3
[2022-06-03 22:32] LABS: MANUAL DIFF FLAG NO
[2022-06-03 22:35] LABS: Basophils Percent Auto 0.1 % (0-2); Eosinophils Percent Auto 0.3 % (0-4); Hematocrit 45.3 % (42.0-52.0); Hemoglobin 15.8 g/dl (14.0-18.0); Imm Gran Abs Auto 0.03 X10*3/uL (0.00-0.03); Imm Gran Pct Auto 0.4 % (0.0-0.4); Lymphocytes Absolute Auto 0.9 X10*3/uL (1.2-4.9); Lymphocytes Percent Auto 13.6 % (20-40); Mean Corpuscular HGB Conc 34.9 g/dl (31.0-36.0); Mean Corpuscular Volume 86.1 fL (80.0-98.0); Mean Platelet Volume 10.6 fL (9.4-12.4); Monocytes Absolute Auto 0.4 X10*3/uL (0.1-1.2); Monocytes Percent Auto 6.3 % (2-11); Neutrophils Absolute Auto 5.5 x10*3/uL (2.0-8.3); Neutrophils Percent Auto 79.3 % (45-73); Platelet Count 195 X10*3/uL (160-400); Red Blood Count 5.26 X10*6/uL (4.60-5.80); Red Cell Distribution Width 11.7 % (11.0-16.0); White Blood Count 6.9 X10*3/uL (4.8-10.8)
[2022-06-03 22:42] LABS: COVID-19 Test Positive (Negative)
[2022-06-03 22:54] LABS: Alanine Aminotransferase 16 U/L (0-40); Albumin Level 5.2 g/dL (3.5-5.0); Alkaline Phosphatase 140 U/L (39-117); Anion Gap 22 (12-20); Aspartate Amino Transferase 16 U/L (5-37); Bilirubin Total 0.3 mg/dL (0.0-1.0); Blood Urea Nitrogen 18 mg/dL (9-16); Calcium 10.5 mg/dL (8.4-10.2); Carbon Dioxide 22 mmol/L (22-29); Chloride 101 mmol/L (96-108); Creatinine Clr Calc Pharmacy 92.8; Estimated Glomerular Filt Rate > 60; Glucose Random 184 mg/dL (60-115); Potassium 4.3 mmol/L (3.3-5.1); Sodium 141 mmol/L (135-145); Total Protein 8.1 g/dL (6.5-8.0)
--- NOTE | 2022-06-04 00:36 | ED_ITS ---
HPI - General Adult General Chief complaint: Upper Respiratory Symptoms Stated complaint: cough,N/V Time Seen by Provider: 06/04/22 00:21 Source: patient and EMS Mode of arrival: EMS Limitations: no limitations History of Present Illness HPI narrative: Patient comes to the emergency room complaining of cough, nausea, vomiting. Patient states that his tested positive for COVID-19 approximately 1 week ago. Patient has started to have symptoms starting yesterday. Patient denies chest pain or shortness of breath. Related Data Home Medications Medication Instructions Recorded Confirmed baclofen 20 mg tablet 20 mg PO BEDTIME 08/31/20 02/05/22 carbamazepine 200 mg tablet 200 mg PO BEDTIME 08/31/20 02/05/22 clonazepam 0.5 mg tablet 0.5 mg PO BEDTIME 08/31/20 02/05/22 cyanocobalamin (vitamin B-12) 1,000 mcg PO DAILY 08/31/20 02/05/22 1,000 mcg tablet lisinopril 2.5 mg tablet 2.5 mg PO DAILY 08/31/20 02/05/22 metformin 1,000 mg tablet 1,000 mg PO BID 08/31/20 02/05/22 pregabalin 300 mg capsule 300 mg PO BID 08/31/20 02/05/22 quetiapine 25 mg tablet 25 mg PO BEDTIME 08/31/20 02/05/22 sitagliptin 100 mg tablet 100 mg PO DAILY 08/31/20 02/05/22 bupropion HCl 300 mg 24 hr tablet, 300 mg PO QAM 10/14/20 02/05/22 extended release duloxetine 60 mg capsule,delayed 90 mg PO DAILY 10/14/20 02/05/22 release lamotrigine 200 mg tablet 200 mg PO BID 10/14/20 02/05/22 prazosin 5 mg capsule 7 mg PO BEDTIME 10/14/20 02/05/22 blood sugar diagnostic #10 ea 02/15/21 02/05/22 blood-glucose meter #1 ea 02/15/21 02/05/22 rosuvastatin 10 mg tablet 10 mg PO BEDTIME 07/12/21 02/05/22 naproxen 500 mg tablet (Naprosyn) 500 mg PO BEDTIME PRN pain 10/25/21 02/05/22 bupropion HCl 150 mg 24 hr tablet, 150 mg PO QAM 12/20/21 02/05/22 extended release duloxetine 30 mg capsule,delayed 30 mg PO DAILY 12/20/21 02/05/22 release prazosin 2 mg capsule 2 mg PO BEDTIME 12/20/21 02/05/22 lancets 28 gauge (FreeStyle #100 ea 02/20/22 Lancets) Previous Rx's Medication Instructions Recorded lidocaine 5 % topical patch 1 patch topical DAILY PRN pain 01/22/21 (scale score 1-3) 5 days #5 ea famotidine 20 mg tablet 20 mg PO BID 30 days #60 tabs 10/30/21 mirabegron 25 mg tablet,extended 25 mg PO DAILY 30 days #30 tabs 01/02/22 release 24 hr (Myrbetriq) pentosan polysulfate sodium 100 mg 100 mg PO BID 90 days #180 caps 02/20/22 capsule (Elmiron) tamsulosin 0.4 mg capsule 0.4 mg PO BEDTIME 90 days #90 caps 03/15/22 naproxen 500 mg tablet 500 mg PO BID PRN pain 30 days #30 03/19/22 tabs finasteride 5 mg tablet 5 mg PO DAILY 90 days #90 tabs 03/28/22 acetaminophen 500 mg tablet 500 mg PO Q6H PRN fever or pain 06/04/22 #20 tabs nirmatrelvir 300 mg (150 mg See Rx Instructions PO .COMPLEX 06/04/22 x2)-ritonavir 100 mg tablet,dose #30 ea pack(EUA) (Paxlovid) Allergies Allergy/AdvReac Type Severity Reaction Status Date / Time linagliptin [From [facility]] Allergy Intermediate RASH Verified 05/21/22 10:26 Cglrtgj-KGS-LsJ Reductase Allergy Intermediate ITCHY,SKIN Verified 05/21/22 1 0:26 Inhibitor BREAKDOWN [[id number] REDUCTASE INHIBITOR] Review of Systems Review of Systems: Constitutional : No Weight loss, No Fever, No Chills, No Night Sweats, complaining of fatigue, generalized malaise ENT/Mouth : No Hearing loss, No Ear Pain, No Nasal Congestion, No Sinus Pain, No Hoarseness, No sore throat, No Rhinorrhea, No Swallowing Difficulty Eyes: No Eye Pain, No Swelling, No Redness, No Foreign Body, No Discharge, No Vision Changes Cardiovascular : No Chest Pain, No SOB, No Dyspnea on Exertion, No Orthopnea, No Edema, No Palpitations Respiratory : Complaining of dry Cough, No Sputum, No Wheezing, No Smoke Exposure, No Dyspnea Gastrointestinal : Complaining of nausea and vomiting No Diarrhea, No Constipation, No abdominal Pain, No Hematochezia, No Melena Genitourinary : no irregular bleeding, No Dysuria, No Urinary Frequency, No Hematuria, No Urinary Incontinence, No Urgency, No Flank Pain, No Urinary Flow Changes, No Hesitancy Musculoskeletal : No joint pain, No Myalgias, No Joint Swelling Skin : No Skin Lesions, No rash Neuro : No Weakness, No Numbness, No Paresthesias, No Loss of Consciousness, No Dizziness, No Headache Psych : No Anxiety/Panic, No Depression, No SI/HI/AH/VH, No Social Issues, Heme/Lymph: No Bruising, No Bleeding,No Lymphadenopathy Endocrine : No Polyuria, No Polydipsia, No Temperature Intolerance PMFSH Past Medical History Medical History Arthritis Benign prostatic hyperplasia with lower urinary tract symptoms Hematuria Hypercalcemia Left lower quadrant pain Low back pain Other obstructive and reflux uropathy Peripheral neuropathy PTSD (post-traumatic stress disorder) Type 2 diabetes mellitus with unspecified complications Unintentional weight loss Urgency incontinence Urinary frequency Surgical History H/O colonoscopy History of prostate surgery Hx of cardiac catheterization Hx of cystoscopy Hx of cystoscopy Social History Social History Are you a primary primary care pediatrician to a significant other at home: No Do you presently have visiting nurse or other home services: Yes (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 Oriented X3. No acute distress. Eyes: Pupils equal, round and reactive to light. ENT: Pharynx normal. Neck: Normal inspection. Neck supple. No lymph nodes noted. No crepitus CVS: Normal heart rate and rhythm. Pulses normal. Normal S1 and S2 Respiratory: No respiratory distress. Breath sounds normal. No Wheezing. No rales Abdomen: Soft and nontender. No rigidity. No distention. Skin: Skin warm and dry. Normal skin color. Normal skin turgor. Extremities: No lower extremity edema. No Lacerations. No Rash Neuro: Oriented X 3. No motor deficit. No sensory deficit. Moving all extremities. No slurred speech. CN 2 through 12 grossly intact Psych: calm, cooperative, normal affect Course Course Course Narrative: Patient tested positive for COVID-19. Patient given p.o./Zofran and Tylenol. Patient takes naproxen at home, patient will alternate with Tylenol. Patient's oxygen saturation 96% on room air. Chest x-ray negative for pneumonia Medical Decision Making Lab Data Result diagrams: 06/03/22 22:26 06/03/22 22:26 Labs: Lab Results 06/03/22 06/03/22 06/03/22 Range/Units 22:26 22:26 22:26 WBC 6.9 (4.8-10.8) X10*3/uL RBC 5.26 (4.60-5.80) X10*6/uL Hgb 15.8 (14.0-18.0) g/dl Hct 45.3 (42.0-52.0) % MCV 86.1 (80.0-98.0) fL MCH 30.0 (27.0-33.0) pg MCHC 34.9 (31.0-36.0) g/dl RDW 11.7 (11.0-16.0) % Plt Count 195 (160-400) X10*3/uL MPV 10.6 (9.4-12.4) fL Immature Gran % (Auto) 0.4 (0.0-0.4) % Neut % (Auto) 79.3 H (45-73) % Lymph % (Auto) 13.6 L (20-40) % Ramsey % (Auto) 6.3 (2-11) % Eos % (Auto) 0.3 (0-4) % Baso % (Auto) 0.1 (0-2) % Lymph # (Auto) 0.9 L (1.2-4.9) X10*3/uL Ramsey # (Auto) 0.4 (0.1-1.2) X10*3/uL Eos # (Auto) 0.0 (0.0-0.4) X10*3/uL Baso # (Auto) 0.0 (0.0-0.2) X10*3/uL Abs Immat Gran (auto) 0.03 (0.00-0.03) X10*3/uL Absolute Neuts (auto) 5.5 (2.0-8.3) x10*3/uL Absolute Nucleated RBC 0.000 (0.0-0.012) X10*3/uL Nucleated RBC % (auto) 0.0 (0.0-0.2) /100WBC Sodium 141 (135-145) mmol/L Potassium 4.3 (3.3-5.1) mmol/L Chloride 101 (96-108) mmol/L Carbon Dioxide 22 (22-29) mmol/L Anion Gap 22 H (12-20) BUN 18 H (9-16) mg/dL Creatinine 0.95 (0.5-1.4) mg/dL Estim Creat Clear Calc 92.8 Estimated GFR > 60 Random Glucose 184 H D (60-115) mg/dL Calcium 10.5 H D (8.4-10.2) mg/dL Total Bilirubin 0.3 (0.0-1.0) mg/dL AST 16 D (5-37) U/L ALT 16 (0-40) U/L Alkaline Phosphatase 140 H D (39-117) U/L Total Protein 8.1 H D (6.5-8.0) g/dL Albumin 5.2 H (3.5-5.0) g/dL COVID-19 ([facility]) Positive A (Negative) COVID-19 Clin Com See Note Imaging Data Chest x-ray: Radiologist's impression: FINDINGS: No significant abnormality is noted involving the heart, lungs, mediastinum, bony thorax or soft tissues. Orthopedic plate and screw and cervical spine partially imaged. XR/XR chest 2V IMPRESSION: Unremarkable examination. Discharge Plan Discharge Clinical Impression: COVID-19 Patient Disposition: Home, Self-Care Instructions: COVID-19 (Coronavirus Disease 2019) (ED) Additional Instructions: Please follow-up with your primary care physician tomorrow. If you have any worsening or new symptoms, please return to the emergency room or call 911 Prescriptions: New Paxlovid (EUA) 300 mg (150 mg x 2)-100 mg tablets,dose pack See Rx Instructions .ROUTE .COMPLEX Qty: 30 0RF Rx Instructions: take TWO 150 mg tablets of nirmatrelvir with ONE 100 mg tablet of ritonavir twice daily for 5 days acetaminophen 500 mg tablet 500 mg PO Q6H PRN (Reason: fever or pain) Qty: 20 0RF No Action Myrbetriq 25 mg tablet extended release 24 hr 25 mg PO DAILY 30 Days Qty: 30 1RF tamsulosin 0.4 mg capsule 0.4 mg PO BEDTIME 90 Days Qty: 90 0RF naproxen 500 mg tablet 500 mg PO BID PRN (Reason: pain) 30 Days Qty: 30 1RF finasteride 5 mg tablet 5 mg PO DAILY 90 Days Qty: 90 1RF lidocaine 5 % adhesive patch,medicated 1 patch topical DAILY PRN (Reason: pain (scale score 1-3)) 5 Days Qty: 5 0RF Rx Instructions: leave on most painful area for up to 12 hrs naproxen [Naprosyn] 500 mg tablet 500 mg PO BEDTIME PRN (Reason: pain) famotidine 20 mg tablet 20 mg PO BID 30 Days Qty: 60 0RF lisinopril 2.5 mg tablet 2.5 mg PO DAILY quetiapine 25 mg tablet 25 mg PO BEDTIME clonazepam 0.5 mg tablet 0.5 mg PO BEDTIME baclofen 20 mg tablet 20 mg PO BEDTIME pregabalin 300 mg capsule 300 mg PO BID carbamazepine 200 mg tablet 200 mg PO BEDTIME cyanocobalamin (vitamin B-12) 1,000 mcg tablet 1,000 mcg PO DAILY sitagliptin 100 mg tablet 100 mg PO DAILY metformin 1,000 mg tablet 1,000 mg PO BID (DME) blood sugar diagnostic Strip See Rx Instructions Not Applicable BID Qty: 10 Rx Instructions: As directed (DME) blood-glucose meter Kit See Rx Instructions .ROUTE .MEDSUPPLY Qty: 1 Rx Instructions: As directed rosuvastatin 10 mg tablet 10 mg PO BEDTIME duloxetine 60 mg capsule,delayed release(/EC) 90 mg PO DAILY bupropion HCl 300 mg tablet extended release 24 hr 300 mg PO QAM prazosin 5 mg capsule 7 mg PO BEDTIME lamotrigine 200 mg tablet 200 mg PO BID bupropion HCl 150 mg tablet extended release 24 hr 150 mg PO QAM prazosin 2 mg capsule 2 mg PO BEDTIME duloxetine 30 mg capsule,delayed release(DR/EC) 30 mg PO DAILY (DME) lancets [FreeStyle Lancets] 28 gauge misc See Rx Instructions topical BID Qty: 100 Rx Instructions: As directed Elmiron 100 mg capsule 100 mg PO BID 90 Days Qty: 180 1RF
[2022-06-04] MEDS: Acetaminophen 325 MG TABLET 975 MG PO (01:13)
[2022-06-04] MEDS: Ondansetron ODT 4 MG TAB.RAPDIS TRANSLINGU (01:14)
[2022-06-04 01:22] VITALS: BP 129/76; BP 131/79; PULSE 98; RESP 18; O2SAT 100
== END 2022-06-04 01:23 | disposition home or self-care (01) ==
PROVIDERS: Emergency Provider Emergency Medicine; PCP Internal Medicine
DX: U07.1 COVID-19 (principal); E11.9 Type 2 diabetes mellitus without complications; Z87.891 Personal history of nicotine dependence; Z79.84 Long term (current) use of oral hypoglycemic drugs
CPT/HCPCS: 36415; 71046; 80053; 85025; 87635; 99283

== ENCOUNTER → 2022-06-27 14:15 | Outpatient (BNVA) | payer OTHER, SELFPAY | PROVIDERS: PCP Internal Medicine; Visit Provider Urology | DX: N32.81 Overactive bladder (principal) | CPT/HCPCS: Q3014 ==

== ENCOUNTER → 2022-07-02 15:40 | Outpatient (BNVA) | payer OTHER, SELFPAY | PROVIDERS: PCP Internal Medicine; Visit Provider Anesthesiology | DX: M46.1 Sacroiliitis, not elsewhere classified (principal); M53.3 Sacrococcygeal disorders, not elsewhere classified; M16.0 Bilateral primary osteoarthritis of hip; G89.4 Chronic pain syndrome | CPT/HCPCS: 99202 ==

== ENCOUNTER 2022-08-07 06:28 | Outpatient (REF) | payer OTHER, SELFPAY ==
--- NOTE | ~2022-08-07 | FL_ITS ---
EXAMINATION: XR FLUOROSCOPY WITH IMAGES CLINICAL INFORMATION: Sacrococcygeal disorder COMPARISON: None. TECHNIQUE: Fluoroscopy Supervised By: Dr. Jose R Maldonado. Fluoroscopy Time: 0.3 minutes. Cumulative Dose: 3.51 mGy. DAP: 0.958 Gycm2. Images: 2. FINDINGS: 2 images demonstrate needles with contrast overlying the sacroiliac joints bilaterally. FL/FL guidance in treatment room IMPRESSION: Intraoperative fluoroscopy for pain management procedure.
== END 2022-08-07 06:29 | disposition home or self-care (01) ==
LOC: CF 06:28
PROVIDERS: Visit Provider Anesthesiology
DX: M53.3 Sacrococcygeal disorders, not elsewhere classified (principal); M46.1 Sacroiliitis, not elsewhere classified
CPT/HCPCS: 27096

== ENCOUNTER → 2022-08-13 09:10 | Outpatient (BNVA) | payer OTHER, SELFPAY | PROVIDERS: PCP Internal Medicine; Visit Provider Anesthesiology | DX: M46.1 Sacroiliitis, not elsewhere classified (principal); M53.3 Sacrococcygeal disorders, not elsewhere classified; M16.0 Bilateral primary osteoarthritis of hip; G89.4 Chronic pain syndrome | CPT/HCPCS: Q3014 ==

== ENCOUNTER → 2022-08-29 13:18 | Outpatient (BNVA) | payer OTHER, SELFPAY | PROVIDERS: PCP Internal Medicine; Visit Provider Urology | DX: N40.1 Benign prostatic hyperplasia with lower urinary tract symptoms (principal); N13.8 Other obstructive and reflux uropathy; N32.81 Overactive bladder | CPT/HCPCS: 99212 ==

== ENCOUNTER 2022-09-07 06:46 | Day surgery (SDC) | payer OTHER, SELFPAY ==
[2022-09-07] VITALS (7 sets, daily range): BP systolic 108–128; BP diastolic 57–72; PULSE 67–87; RESP 16–18; TEMP 36.2–36.8; O2SAT 97–98; BMI 23.9
--- NOTE | ~2022-09-07 | FL_ITS ---
EXAMINATION: XR FLUOROSCOPY WITH IMAGES CLINICAL INFORMATION: Sacroiliac joint stabilization with fusion. COMPARISON: CT pelvis 10/06/2020 TECHNIQUE: Fluoroscopy Supervised By: Dr. Jose R Maldonado. Fluoroscopy Time: 1.7 minutes. Cumulative Dose: 9.68 mGy. DAP: 35.5 Gycm2. Images: 11. FINDINGS: Initial images demonstrate spinal needle overlying mid left SI joint with needle tip at mid depth. Subsequent images show hardware and a cannulated device overlying the SI joint. There is fusion hardware is seen at level mid left SI joint. FL/FL guidance in OR IMPRESSION: Fluoroscopy for pain management procedure.
[2022-09-07 07:08] LABS: Glucose, Whole Blood 137 mg/dL (60-115)
[2022-09-07 07:18] LABS: Amphetamine Screen Urine Not Detected (Not Detect); Barbiturates, Urine Not Detected (Not Detect); Benzodiazepines Screen Urine Not Detected (Not Detect); Cannabinoid Screen Urine POSITIVE (Not Detect); Cocaine Screen Urine Not Detected (Not Detect); Fentanyl, urine Not Detected (Not Detect); Opiate Screen Urine Not Detected (Not Detect); Phencyclidine Screen Urine Not Detected (Not Detect)
[2022-09-07] MEDS: Lactated Ringers 1,000 ML 100 ML IVCONT (07:18)
--- NOTE | 2022-09-07 07:29 | MHC.SHP ---
Pre-Procedural Eval Section A Date of Service: 09/07/22 The patient is an INPATIENT: No Changes since office visit: Yes Patient answered all questions The History & Physical has been completed within 30 days and I have reviewed it.: No Section B Chief Complaint: Sacroiliitis, Sacrococcygeal disorders, Details of Present Illness: As above Relevant Family History (Specify if Yes): No Relevant Social History: None Present Medications: see Short Stay Collaborative assessment Medical History: No relevant PMH History of Previous Operations: No relevant previous surgery Allergies: Allergies Allergy/AdvReac Type Severity Reaction Status Date / Time linagliptin [From [facility]] Allergy Intermediate RASH Verified 08/29/22 13:27 Zvwdrcq-LBJ-AbB Reductase Allergy Intermediate ITCHY,SKIN Verified 08/29/22 13:27 Inhibitor BREAKDOWN [[id number] REDUCTASE INHIBITOR] Review of Systems Sugical H&P ROS: Negative: Constitution, Cardiovascular, Respiratory, Neurological, Psychiatric, Hem-Onc, Allergic/Immunologic, Gastrointestinal, Genitourinary, Musculoskeletal, Integumentary, Endocrine and Eyes/Ears/Nose/Throat Exam Surgical H&P Exam: Normal: HEENT, Normal: Heart, Normal: Lungs, Normal: Extremities, Normal: Abdomen, Normal: Skin and Normal: Neurological Plan Diagnosis/Plan: Unchanged I have reviewed the history and physical and performed a pertinent physical examination on my patient. No changes have occurred unless specified. Time Spent With Patient Time: Total time managing care of this patient today __5__ minutes.
--- NOTE | 2022-09-07 11:34 | P.OP_ITS ---
Operative Note Operative Note Date of Service: 09/07/22 Narrative: Sacroiliac joint stabilisation procedure. posterior sacroiliac joint fusion on the left? using [employer] SI joint stabilization system with C-arm fluoroscopy for guidance.? Linus is 52 y.o. male who is suffering from the left? sacroiliac joint insufficiency and sacroiliitis.??He failed conservative management of sacroiliitis.?He came today to receive the procedures as above.??The risks and benefits including bleeding, infection, peripheral nerve damage, failure to reduce the pain were explained to the patient.?The patient came to the operating room, he was positioned on the stretcher supine, [place] [employer] monitors were applied and patient was administered with general endotracheal anesthesia.??After that the patient was transferred on operating table and positioned prone with all pressure points protected. The patient was administered 2 grams cefazolin IV approximately 25 minutes before the start of the procedure.? Time-out was performed delineating correct site, side, and nature of the procedure, name and date of of the patient, risk of fire, need for DVT prophylaxis, need for antibiotics.? The patient was transferred?on?radiolucent table. All pressure points were protected again. Lower back and bilateral buttocks were prepped with ChloraPrep and draped with full body drape. 3. 5 cm posterior midline incision over the projection of the right? S1 foramina was performed.? Soft tissue dissection done to sacroiliac joint and thorough blind dissection was made in the direction of the?sacroiliac joint.? K-wire pin was inserted into the left? sacroiliac joint and guiding instrument was inserted into the joint using the pin as a guide and advanced into the joint on the intermittent anterior posterior and lateral views.??? After that pin was removed and rasping device was inserted to broach and rasp sacroiliac joint.? Once joint was prepared and inserted the structural allograft implant was hammered into the joint . It was packed with ortho biologics in and around the implant to provide better opportunity? for bones fusion.? The position of the allograft was confirmed radiographically.? The wound was irrigated, hemostasis was achieved with electrocautery as well as with insertion of the surgicell tissue to the deep portion of the wound where bleeding was pesisting the pressue was applied over the surgicel and bleeding was stopped. The wound was closed in 2 layers.? Surgery was concluded by performing standard suture closing technique:? 0 Polysorb suture was used to close the wound and polisorb 2-0? were used to approximate the level of the skin and trino were applied.? ? Skin glue was applied to the skin edges.? Sterile?dressing was applied with bacitracin ointment .? The patient tolerated procedure well he was awaken, extubated? and taken outside of the operating room to PACU here she recovered uneventfully. He went home without immediate complications. he will be wearing an SI joint fixation belt for the 12? weeks after the procedure.
--- NOTE | 2022-09-07 11:35 | P.BOP_ITS ---
Brief Operative Note Date of Service: 09/07/22 Pre-op diagnosis: Sacroiliac joint dysfunction, SI joint pain left. Post-op diagnosis: same Procedure: Sacroiliac joint stabilisation procedure. posterior sacroiliac joint fusion on the left? using [employer] SI joint stabilization system with C-arm fluoroscopy for guidance.? Implants: allpgraft cadaver bone with orthobiologicals to stimulate bone growth. Surgeon: Jose R Maldonado MD Anesthesia: GETA Was an Intelligence Specialist used for this Procedure?: No Estimated blood loss (mL): 40 Pathology: none sent Condition: stable Disposition: PACU
[2022-09-07] MEDS: oxyCODONE HCl Immed Release 5 MG TABLET 10 MG PO (11:44)
[2022-09-07] MEDS: fentaNYL citrate/PF 100 MCG/2 ML VIAL 50 MCG IVPUSH (11:48)
--- NOTE | 2022-09-07 13:07 | P.CONAN_ITS ---
[facility] Active Problems Active Problems: All Active Problems (Updated 07/02/22 @ 19:21 by Jose R Maldonado MD) Chronic pain syndrome (Acute) Osteoarthritis of hips, bilateral (Acute) Pain of both sacroiliac joints (Acute) Sacroiliitis (Acute) COVID-19 (Acute) Deep inguinal pain, left (Acute) Overactive bladder (Acute) Chronic UTI (urinary tract infection) (Acute) Interstitial cystitis (chronic) without hematuria (Acute) BPH w urinary obs/LUTS (Acute) Groin pain, chronic, left (Acute) Urinary urgency (Acute) Prostatitis (Acute) Hematuria (Acute) Left lower quadrant pain (Acute) Urinary frequency (Acute) Past Medical History Medical History Arthritis Benign prostatic hyperplasia with lower urinary tract symptoms Hematuria Hypercalcemia Left lower quadrant pain Low back pain Other obstructive and reflux uropathy Peripheral neuropathy PTSD (post-traumatic stress disorder) Type 2 diabetes mellitus with unspecified complications Unintentional weight loss Urgency incontinence Urinary frequency Family History Family history of problems with anesthesia: No Surgical History Surgical History H/O colonoscopy History of prostate surgery Hx of cardiac catheterization Hx of cystoscopy Hx of cystoscopy History of Problems with Anesthesia: No Social History Social History Are you a primary long term care pharmacist to a significant other at home: No Do you presently have visiting nurse or other home services: Yes (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) Alcohol intake: former Patient Tobacco Use Status: Former Tobacco user Quit Date: 2006 Tobacco use type: Cigarette Substance Use Type: Crack/Cocaine and Marijuana Are you DNR?: No Advance Directives: No Advance Directives Information Provided: Yes Recently lost weight without trying: No Meds Allergies Allergy/AdvReac Type Severity Reaction Status Date / Time linagliptin [From [facility]] Allergy Intermediate RASH Verified 08/29/22 13:27 Zgemhbk-[id number]-EzD Reductase Allergy Intermediate ITCHY,SKIN Verified 08/29/22 13:27 Inhibitor BREAKDOWN [FXSGJPO-MYP-RIP REDUCTASE INHIBITOR] Active Medications: Current Medications Fentanyl (Fentanyl Citrate/Pf 100 Mcg/2 Ml Vial) 50 mcg IVPUSH Q5M PRN; Protocol PRN Reason: Pain, Severe (Pain Scale 7-10) Last Admin: 09/07/22 11:48 Dose: 50 mcg Lactated Ringer's (Lr) 1,000 mls @ 100 mls/hr IVCONT .Q10H ROLF Last Admin: 09/07/22 07:18 Dose: 100 mls/hr Home Medications Medication Instructions Recorded Confirmed Last Taken Type baclofen 20 mg tablet 20 mg PO BEDTIME 08/31/20 07/02/22 09/07/22 History carbamazepine 200 mg tablet 200 mg PO BEDTIME 08/31/20 02/05/22 09/07/22 History clonazepam 0.5 mg tablet 0.5 mg PO BEDTIME 08/31/20 07/02/22 09/07/22 History cyanocobalamin (vitamin B-12) 1,000 mcg PO DAILY 08/31/20 07/02/22 09/07/22 History 1,000 mcg tablet metformin 1,000 mg tablet 1,000 mg PO BID 08/31/20 07/02/22 09/07/22 History pregabalin 300 mg capsule 300 mg PO BID 08/31/20 07/02/22 09/07/22 History quetiapine 25 mg tablet 25 mg PO BEDTIME 08/31/20 07/02/22 09/07/22 History bupropion HCl 300 mg 24 hr tablet, 300 mg PO QAM 10/14/20 02/05/22 09/07/22 History extended release duloxetine 60 mg capsule,delayed 90 mg PO DAILY 10/14/20 07/02/22 09/07/22 History release lamotrigine 200 mg tablet 200 mg PO BID 10/14/20 07/02/22 09/07/22 History prazosin 5 mg capsule 7 mg PO BEDTIME 10/14/20 07/02/22 09/06/22 History blood sugar diagnostic #10 ea 02/15/21 07/02/22 Unknown History blood-glucose meter #1 ea 02/15/21 07/02/22 Unknown History naproxen 500 mg tablet (Naprosyn) 500 mg PO BEDTIME PRN pain 10/25/21 02/05/22 09/02/22 History bupropion HCl 150 mg 24 hr tablet, 150 mg PO QAM 12/20/21 02/05/22 09/07/22 History extended release duloxetine 30 mg capsule,delayed 30 mg PO DAILY 12/20/21 07/02/22 09/07/22 History release lancets 28 gauge (FreeStyle #100 ea 02/20/22 07/02/22 Unknown History Lancets) carbamazepine 400 mg 400 mg PO DAILY 06/25/22 09/07/22 History tablet,extended release,12 hr Exam Exam Date and Time: September 07, 2022 1307 Height,Weight and Vital Signs: Height 5 ft 10 in Weight 75.75 kg Last Vital Signs Temp 97.2 F 09/07/22 11:35 Pulse 67 09/07/22 12:05 Resp 18 09/07/22 12:05 BP 108/65 09/07/22 12:05 Pulse Ox 97 09/07/22 12:05 O2 Del Method 09/07/22 12:05 Pertinent Lab Results Pertinent Lab Results: Laboratory Tests 09/07/22 09/07/22 06:55 07:05 POC Glucose 137 H Urine Opiates Screen Not Detected Urine Fentanyl Screen Not Detected Ur Barbiturates Screen Not Detected Ur Phencyclidine Scrn Not Detected Ur Amphetamines Screen Not Detected U Benzodiazepines Scrn Not Detected Urine Cocaine Screen Not Detected U Marijuana (THC) Screen POSITIVE H Airway Mallampati Class: II TM Dist: >3cm Neck ROM: Full Partial: Upper and Lower Heart: rr Lungs: cta Assessment and Plan Final Anesthetic Review Family History of Problems with Anesthesia: No History of Problems with Anesthesia: No ASA Class: II Final Preanesthetic Review: No Changes in Pt Med Stat, Meds/Allgs Chart Reviewed, Consent Obtained/Reviewed and Anes Risks/Benef Reviewed Patient Risk: Low Procedure Risk: Low Anesthetic Plan Anesthetic Plan: GA Disposition: Standard PACU
--- NOTE | 2022-09-08 04:03 | W.PM.OPN ---
Operative Note Operative Note Date of Service: 09/07/22 Narrative: Bilateral diagnostic sacroiliac joint innervation injection. Informed consent was explained thoroughly to the patient.? All questions about benefits and risks for the procedure were answered. Patient came to the operating room she was positioned supine on the stretcher.? [employer] monitors were applied and patient was deeply induced with general endotracheal anesthesia. ? Opioids and ketamine were avoided during the anesthesia. The patient was transferred prone on the operating table, all pressure points were protected. His lower back and buttocks was prepped with ChloraPrep prepped and draped with sterile utility towels.? C-arm was brought over the operating field and sq picture of patient's pelvis was demonstrated on the screen.? Attention was first concentrated on the right sacroiliac joint. The points of interest were delineated as: Point A- confluence of the right superior articular process of S1 with right sacral ala .The point B was determined as the lowest point of the sacroiliac joint on sacral side of the joint.? The rest of the points of interests were determined as the points between the point A and point B in the linear fashion with the tips of the needles no further than 1 cm apart. The needles between point A and point B were planned to insert in the straight line in palisade fashion.? The skin in the projection of the points of interest were injected with small amount of local lidocaine 1% mixed with ropivacain 0.5%, after that 22 gauge 3-1/2 inch needles were driven to the point of interest in tunnel vision fashion. Injection of the contast did not demonstrate intravascular spread of the contrast. When needles gently contacted the bone Injection of the contast did not demonstrate intravascular spread of the contrast. The each point of interest was injected with small amount of ropivacaine 0.5% less than 1 cc was injected into each needle. After completion of the injections on the right side the injections were performed on the left side in mirroring fashion. Todal dose of ropivacaine 0.5% was 24 milliliters. Upon completion of the injections the needles were removed sterile bandaids was applied.? The patient tolerated procedure well.? He went outside of the operating room to PACU where he recovered uneventfully.?
== END 2022-09-07 13:05 | disposition home or self-care (01) ==
PROVIDERS: Nurse Practitioner; PCP Internal Medicine; Visit Provider Anesthesiology
PROC: (CPT 27279; principal; 2022-09-07 08:40)
DX: M46.1 Sacroiliitis, not elsewhere classified (principal); M53.3 Sacrococcygeal disorders, not elsewhere classified; M16.0 Bilateral primary osteoarthritis of hip; G89.4 Chronic pain syndrome; M54.50 Low back pain, unspecified; E11.9 Type 2 diabetes mellitus without complications; G62.9 Polyneuropathy, unspecified; F43.10 Post-traumatic stress disorder, unspecified; Z79.84 Long term (current) use of oral hypoglycemic drugs; Z79.899 Other long term (current) drug therapy; Z88.8 Allergy status to other drugs, medicaments and biological substances; Z87.891 Personal history of nicotine dependence
CPT/HCPCS: 27279; 80307; 82947; C1713; J0690; J2250; J2405; J2795; J3010; J3370

== ENCOUNTER → 2022-09-13 10:21 | Outpatient (BNVA) | payer OTHER, SELFPAY | PROVIDERS: PCP Internal Medicine; Visit Provider Anesthesiology | DX: M46.1 Sacroiliitis, not elsewhere classified (principal); M53.3 Sacrococcygeal disorders, not elsewhere classified; M16.0 Bilateral primary osteoarthritis of hip; G89.4 Chronic pain syndrome | CPT/HCPCS: 99212 ==

== ENCOUNTER → 2022-09-20 10:00 | Outpatient (BNVA) | payer OTHER, SELFPAY | PROVIDERS: PCP Internal Medicine; Visit Provider Anesthesiology | DX: M46.1 Sacroiliitis, not elsewhere classified (principal); M53.3 Sacrococcygeal disorders, not elsewhere classified; M16.0 Bilateral primary osteoarthritis of hip; G89.4 Chronic pain syndrome | CPT/HCPCS: 99212 ==

== ENCOUNTER → 2022-10-24 10:43 | Outpatient (BNVA) | payer OTHER, SELFPAY | PROVIDERS: PCP Internal Medicine; Visit Provider Urology | DX: N40.1 Benign prostatic hyperplasia with lower urinary tract symptoms (principal); N13.8 Other obstructive and reflux uropathy; N32.81 Overactive bladder | CPT/HCPCS: Q3014 ==

== ENCOUNTER 2022-10-29 06:24 | Day surgery (SDC) | payer OTHER, SELFPAY ==
[2022-10-24 13:56] VITALS: BMI 23.9
--- NOTE | 2022-10-26 12:49 | P.CONAN_ITS ---
Documented by User: Edda Hoang NP 10/26/22 12:50 HPI - Anesthesia Eval Consult details Narrative: 52yo M for Interstim Lead Test-Stage 1 s/p SI joint fusion 08/2022 with GA-ETT 7 PMFSH Active Problems Active Problems: All Active Problems (Updated 10/24/22 @ 13:56 by Soledad Lin RN) BPH w urinary obs/LUTS (Acute) Groin pain, chronic, left (Acute) Urinary urgency (Acute) Prostatitis (Acute) Interstitial cystitis (chronic) without hematuria (Acute) Chronic UTI (urinary tract infection) (Acute) Overactive bladder (Acute) Deep inguinal pain, left (Acute) COVID-19 (Acute) Sacroiliitis (Acute) Pain of both sacroiliac joints (Acute) Osteoarthritis of hips, bilateral (Acute) Chronic pain syndrome (Acute) Hematuria (Acute) Left lower quadrant pain (Acute) Urinary frequency (Acute) Past Medical History Medical History Arthritis Benign prostatic hyperplasia with lower urinary tract symptoms Hematuria History of COVID-19 Hypercalcemia Left lower quadrant pain Low back pain Other obstructive and reflux uropathy Peripheral neuropathy PTSD (post-traumatic stress disorder) Type 2 diabetes mellitus with unspecified complications Unintentional weight loss Urgency incontinence Urinary frequency Family History Family history of problems with anesthesia: No Surgical History Surgical History H/O colonoscopy History of prostate surgery History of surgery Hx of cardiac catheterization Hx of cystoscopy Hx of cystoscopy Hx of cystoscopy History of Problems with Anesthesia: No Social History Social History (Updated 10/24/22 @ 13:55 by Soledad Lin RN) Are you a primary rn critical care to a significant other at home: No 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 If so, by whom?: No Are you DNR?: No Advance Directives: No Advance Directives Information Provided: Yes (brochure mailed) Advance Directives on File: No Recently lost weight without trying: No Eating poorly because of decreased appetite: No Nutrition Risks: No Nutritional Risk Poor oral hygiene: No (upper partial) Meds Allergies Allergy/AdvReac Type Severity Reaction Status Date / Time linagliptin [From TRADJENTA] Allergy Intermediate RASH Verified 10/29/22 06:40 Qnoxmqs-WPL-BpP Reductase Allergy Intermediate ITCHY,SKIN Verified 10/29/22 06:40 Inhibitor BREAKDOWN [ZRIYSNU-KUM-MBJ REDUCTASE INHIBITOR] Home Medications Medication Instructions Recorded Confirmed Last Taken Type baclofen 20 mg tablet 20 mg PO BEDTIME 08/31/20 10/24/22 09/07/22 History carbamazepine 200 mg tablet 200 mg PO BEDTIME 08/31/20 10/24/22 09/07/22 History cyanocobalamin (vitamin B-12) 1,000 mcg PO DAILY 08/31/20 10/24/22 09/07/22 History 1,000 mcg tablet metformin 1,000 mg tablet 1,000 mg PO BID 08/31/20 10/24/22 09/07/22 History pregabalin 300 mg capsule 300 mg PO BID 08/31/20 10/24/22 10/29/22 05:15 History quetiapine 25 mg tablet 25 mg PO BEDTIME 08/31/20 10/24/22 09/07/22 History bupropion HCl 300 mg 24 hr tablet, 300 mg PO QAM 10/14/20 10/24/22 10/29/22 05:15 History extended release duloxetine 60 mg capsule,delayed 60 mg PO DAILY 10/14/20 10/24/22 10/29/22 05:15 History release lamotrigine 200 mg tablet 200 mg PO BID 10/14/20 10/24/22 10/29/22 05:15 History prazosin 5 mg capsule 7 mg PO BEDTIME 10/14/20 10/24/22 09/06/22 History blood sugar diagnostic #10 ea 02/15/21 10/24/22 Unknown History blood-glucose meter #1 ea 02/15/21 10/24/22 Unknown History naproxen 500 mg tablet (Naprosyn) 500 mg PO BEDTIME PRN pain 10/25/21 10/24/22 10/26/22 History bupropion HCl 150 mg 24 hr tablet, 150 mg PO QAM 12/20/21 10/24/22 10/29/22 05:15 History extended release duloxetine 30 mg capsule,delayed 30 mg PO DAILY 12/20/21 10/24/22 10/29/22 05:15 History release lancets 28 gauge (FreeStyle #100 ea 02/20/22 10/24/22 Unknown History Lancets) Exam Exam Date and Time: October 26, 2022 124 Height,Weight and Vital Signs: Height 5 ft 10 in Weight 75.75 kg Pertinent Lab Results Pertinent Lab Results: Laboratory Tests 06/03/22 06/03/22 22:26 22:26 WBC 6.9 Hgb 15.8 Hct 45.3 Plt Count 195 Sodium 141 Potassium 4.3 Chloride 101 Carbon Dioxide 22 BUN 18 H Creatinine 0.95 Assessment and Plan Assessment Anesthesia Assessment: Chart Reviewed Final Anesthetic Review Family History of Problems with Anesthesia: No History of Problems with Anesthesia: No Documented by User: Kandi Perez MD 10/29/22 07:30 PMFSH Past Medical History Medical History Arthritis Benign prostatic hyperplasia with lower urinary tract symptoms Hematuria History of COVID-19 Hypercalcemia Left lower quadrant pain Low back pain Other obstructive and reflux uropathy Peripheral neuropathy PTSD (post-traumatic stress disorder) Type 2 diabetes mellitus with unspecified complications Unintentional weight loss Urgency incontinence Urinary frequency Surgical History Surgical History H/O colonoscopy History of prostate surgery History of surgery Hx of cardiac catheterization Hx of cystoscopy Hx of cystoscopy Hx of cystoscopy Social History Social History (Updated 10/24/22 @ 13:55 by Soledad Lin RN) Are you a primary rn critical care to a significant other at home: No 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 If so, by whom?: No Are you DNR?: No Advance Directives: No Advance Directives Information Provided: Yes (brochure mailed) Advance Directives on File: No Recently lost weight without trying: No Eating poorly because of decreased appetite: No Nutrition Risks: No Nutritional Risk Poor oral hygiene: No (upper partial) Meds Allergies Allergy/AdvReac Type Severity Reaction Status Date / Time linagliptin [From TRADJENTA] Allergy Intermediate RASH Verified 10/29/22 06:40 Izteoxz-DKZ-QhB Reductase Allergy Intermediate ITCHY,SKIN Verified 10/29/22 06:40 Inhibitor BREAKDOWN [[id number]-ROW REDUCTASE INHIBITOR] Home Medications Medication Instructions Recorded Confirmed Last Taken Type baclofen 20 mg tablet 20 mg PO BEDTIME 08/31/20 10/24/22 09/07/22 History carbamazepine 200 mg tablet 200 mg PO BEDTIME 08/31/20 10/24/22 09/07/22 History cyanocobalamin (vitamin B-12) 1,000 mcg PO DAILY 08/31/20 10/24/22 09/07/22 History 1,000 mcg tablet metformin 1,000 mg tablet 1,000 mg PO BID 08/31/20 10/24/22 09/07/22 History pregabalin 300 mg capsule 300 mg PO BID 08/31/20 10/24/22 10/29/22 05:15 History quetiapine 25 mg tablet 25 mg PO BEDTIME 08/31/20 10/24/22 09/07/22 History bupropion HCl 300 mg 24 hr tablet, 300 mg PO QAM 10/14/20 10/24/22 10/29/22 05:15 History extended release duloxetine 60 mg capsule,delayed 60 mg PO DAILY 10/14/20 10/24/22 10/29/22 05:15 History release lamotrigine 200 mg tablet 200 mg PO BID 10/14/20 10/24/22 10/29/22 05:15 History prazosin 5 mg capsule 7 mg PO BEDTIME 10/14/20 10/24/22 09/06/22 History blood sugar diagnostic #10 ea 02/15/21 10/24/22 Unknown History blood-glucose meter #1 ea 02/15/21 10/24/22 Unknown History naproxen 500 mg tablet (Naprosyn) 500 mg PO BEDTIME PRN pain 10/25/21 10/24/22 10/26/22 History bupropion HCl 150 mg 24 hr tablet, 150 mg PO QAM 12/20/21 10/24/22 10/29/22 05:15 History extended release duloxetine 30 mg capsule,delayed 30 mg PO DAILY 12/20/21 10/24/22 10/29/22 05:15 History release lancets 28 gauge (FreeStyle #100 ea 02/20/22 10/24/22 Unknown History Lancets) Exam Airway Mallampati Class: II TM Dist: >3cm Neck ROM: Full Heart: RRR Lungs: CTA Assessment and Plan Final Anesthetic Review NPO: Yes Final Preanesthetic Review: No Changes in Pt Med Stat, Meds/Allgs Chart Reviewed, Consent Obtained/Reviewed and Anes Risks/Benef Reviewed Patient Risk: Intermediate Procedure Risk: Low Anesthetic Plan Anesthetic Plan: GA Disposition: Standard PACU
[2022-10-29] VITALS (8 sets, daily range): BP systolic 88–127; BP diastolic 61–75; PULSE 65–78; RESP 15–20; TEMP 35.7–36.4; O2SAT 95–100
--- NOTE | ~2022-10-29 | FL_ITS ---
EXAMINATION: XR FLUOROSCOPY WITH IMAGES CLINICAL INFORMATION: Interstim lead stage I COMPARISON: MR lumbar spine 03/19/2022. Pain management fluoroscopic spot views 09/07/2022. TECHNIQUE: Fluoroscopy Supervised By: Dr. Eric Randhawa. Fluoroscopy Time: 1.67 minutes. Cumulative Dose: 24.1 mGy. Images: 2. FINDINGS: There is electrode seen overlying left sacral wing with tip just beyond the anterior cortex on lateral view. No kinking or defect. There is been prior left SI joint stabilization procedures consistent with prior imaging. FL/FL guidance in OR IMPRESSION: Fluoroscopy for urologic procedure.
[2022-10-29 06:54] LABS: Glucose, Whole Blood 158 mg/dL (60-115)
[2022-10-29] MEDS: Lactated Ringers 1,000 ML 100 ML IVCONT (07:00)
--- NOTE | 2022-10-29 07:52 | MHC.SHP ---
Pre-Procedural Eval Section A Date of Service: 10/29/22 The patient is an INPATIENT: No Changes since office visit: No Cold of Flu in the past 2 weeks, No New Medical Problems, No Changes in Medication and No Patient answered all questions The History & Physical has been completed within 30 days and I have reviewed it.: Yes Section B Chief Complaint: Overactive bladder Allergies: Allergies Allergy/AdvReac Type Severity Reaction Status Date / Time linagliptin [From TRADJENTA] Allergy Intermediate RASH Verified 10/29/22 06:40 Qvpxkdg-RLH-YqR Reductase Allergy Intermediate ITCHY,SKIN Verified 10/29/22 06:40 Inhibitor BREAKDOWN [WZSOSYR-FDX-GBC REDUCTASE INHIBITOR] Review of Systems Sugical H&P ROS: Negative: Constitution, Cardiovascular, Respiratory, Neurological, Psychiatric, Hem-Onc, Allergic/Immunologic, Gastrointestinal, Genitourinary, Musculoskeletal, Integumentary, Endocrine and Eyes/Ears/Nose/Throat Exam Surgical H&P Exam: Normal: HEENT, Normal: Heart, Normal: Lungs, Normal: Extremities, Normal: Abdomen, Normal: Skin and Normal: Neurological Plan Diagnosis/Plan: Unchanged (Interstim placement) I have reviewed the history and physical and performed a pertinent physical examination on my patient. No changes have occurred unless specified. Time Spent With Patient Time: Total time managing care of this patient today ____ minutes.
--- NOTE | 2022-10-29 09:16 | P.OP_ITS ---
Operative Note Operative Note Date of Service: 10/29/22 Narrative: PreOperative Diagnosis: Overactive bladder with urinary urgency and frequency Post Operative Diagnosis: Overactive bladder with urinary urgency and frequency Procedure: 1.) Placement of InterStim lead trial - left side Surgeon: Dr Eric Randhawa Anesthesia: sedation Indications for procedure: failed multiple oral medication and botox - understands 50% success Procedure: After informed consent was verified the patient was brought to the operating room. Sedation anesthesia was administered per protocol. The patient was placed in a prone position and prepped and draped in a sterile fashion. Safety pause time-out was performed. Using the C-arm and Finder needle the S3 foramen exiting from the pelvic arch was marked horizontally from left to right as our horizontal marker. The medial aspect of foramen were highlighted and aligned with the finder needle in a vertical fashion. The intersection of these 2 lines marked the entry point on the skin of the medial aspect of the right S3 foramen. Local anesthetic was infiltrated along the vertical aspect. The finding needle was inserted into the targeted foramen. The manager testing was attached and assessed for placement with Marcelo response and toe movement. The initial response was predominantly Marcelo with minimal toe. A 2nd finder needle was placed minimal caudad position and testing still a predominate marcelo response. attempt was made to find proximal foramen. This was difficult to find on the patient's right side. We moved to the patient's left side. The finding needle was again placed. this time able proximal foramen was entered. It appeared that this was S3. Prior needle on right side was likely an S4. On testing we had both Marcelo and toe movement indicating a combination response. The internal introducer from the needle was removed and the control lead placed. The finder needle was removed and the dilator sheath introduced. Under fluoroscopic guidance the dilator sheath was advanced till the marker was seen mid point through the sacral bone on the lateral image. The internal cannula from the dilator was removed. The guidewire was removed. The active lead was then introduced through the dilator sheath and advanced so that the 3rd and 4th marked electrodes crossed the internal boundary line of the sacrum. The testing electrode was then hooked up to each of the wire electrodes 0 through 3 and good Marcelo and toe response is was seen at low amplitude 2.0 amps. This confirmed the clinically relevant position of the live wire. - in particular positions 0 and position 1 had good Marcelo movement by 1.0 amps Under live fluoroscopy the introducer sheath was removed deploying the tines of the wire ensuring that the live wire remained in the previously described position. The tunneling device was then used to bridge the distance between the sacral aaron tical incision and the desired location of the battery pocket. The live wire was placed through the tunneling device and brought out into the battery pocket. The sharp tunneling device tip was then exchanged for a blunt-tip and the tunneling device lead from our target battery pocket superiorly to in outlet point. The manager testing was then placed in the retrieval device and brought back to out target battery pocket. The live lead was then attached to manager testing. A loop of manager testing was then created and using a Vicryl suture attached to the connector in order to allow easier location for final placement of battery and to minimize tension. Interrupted 3-0 Vicryl sutures were used to close the defect spaces and bring skin edges together. Running 4-0 Monocryl sutures were used to appose skin edges. Incisions were dressed using skin glue. The manager testing was attached using a drain suture. Patient tolerated procedure well was extubated in operating room transferred in stable condition to the recovery area. CPT 45369, 94544
--- NOTE | 2022-10-29 11:52 | HO.POSTANES ---
Post Anesthesia Evaluation Post Anesthesia Evaluation Vital Signs: Vital Signs Temp Pulse Resp BP Pulse Ox O2 Del Method 10/29/22 10:10 97.4 F 65 18 126/74 100 Room Air 10/29/22 09:55 69 20 123/73 100 Room Air 10/29/22 09:40 73 18 123/68 100 Room Air 10/29/22 09:35 78 18 126/75 97 Room Air 10/29/22 09:30 70 17 119/68 95 Room Air 10/29/22 09:25 97.5 F 76 16 127/73 98 Room Air 10/29/22 07:03 106/64 10/29/22 06:45 96.3 F L 78 15 88/61 L 99 Room Air Anesthesia: General Endotracheal-GETA and General LMA Mental Status: Awake Pain Control: Satisfactory Nausea/Vomiting: None and Mild Hydration: Adequate Anesthesia-Related Issues: No Anes. Related Issues
== END 2022-10-29 10:55 | disposition home or self-care (01) ==
PROVIDERS: PCP Internal Medicine; Visit Provider Urology
PROC: (CPT 64561; principal; 2022-10-29 08:40)
DX: N32.81 Overactive bladder (principal); N40.1 Benign prostatic hyperplasia with lower urinary tract symptoms; R39.15 Urgency of urination; R35.0 Frequency of micturition; N13.8 Other obstructive and reflux uropathy; N41.9 Inflammatory disease of prostate, unspecified; R31.9 Hematuria, unspecified; R35.1 Nocturia; E13.9 Other specified diabetes mellitus without complications; G62.9 Polyneuropathy, unspecified; Z79.84 Long term (current) use of oral hypoglycemic drugs; Z79.899 Other long term (current) drug therapy; F12.90 Cannabis use, unspecified, uncomplicated; F14.90 Cocaine use, unspecified, uncomplicated; Z87.891 Personal history of nicotine dependence
CPT/HCPCS: 64561; 82947; C1778; C1883; J0330; J0690; J1100; J2250; J2405; J2795; J3010; J3370

== ENCOUNTER → 2022-11-06 13:49 | Outpatient (BNVA) | payer OTHER, SELFPAY | PROVIDERS: PCP Internal Medicine; Visit Provider Urology ==

== ENCOUNTER 2022-11-12 05:46 | Day surgery (SDC) | payer OTHER, SELFPAY ==
[2022-10-24 14:05] VITALS: BMI 23.9
--- NOTE | 2022-11-09 11:05 | P.CONAN_ITS ---
Documented by User: Edda Hoang NP 11/09/22 11:06 HPI - Anesthesia Eval Consult details Narrative: 52yo M for Interstim Lead Test-Stage 2 s/p Stage 1 10/29/22 with GA-ETT 7.5 PMFSH Active Problems Active Problems: All Active Problems (Updated 10/24/22 @ 13:56 by Soledad Lin RN) BPH w urinary obs/LUTS (Acute) Groin pain, chronic, left (Acute) Urinary urgency (Acute) Prostatitis (Acute) Interstitial cystitis (chronic) without hematuria (Acute) Chronic UTI (urinary tract infection) (Acute) Overactive bladder (Acute) Deep inguinal pain, left (Acute) COVID-19 (Acute) Sacroiliitis (Acute) Pain of both sacroiliac joints (Acute) Osteoarthritis of hips, bilateral (Acute) Chronic pain syndrome (Acute) Hematuria (Acute) Left lower quadrant pain (Acute) Urinary frequency (Acute) Past Medical History Medical History Arthritis Benign prostatic hyperplasia with lower urinary tract symptoms Hematuria History of COVID-19 Hypercalcemia Left lower quadrant pain Low back pain Other obstructive and reflux uropathy Peripheral neuropathy PTSD (post-traumatic stress disorder) Type 2 diabetes mellitus with unspecified complications Unintentional weight loss Urgency incontinence Urinary frequency Family History Family history of problems with anesthesia: No Surgical History Surgical History H/O colonoscopy History of prostate surgery History of surgery Hx of cardiac catheterization Hx of cystoscopy Hx of cystoscopy Hx of cystoscopy History of Problems with Anesthesia: No Social History Social History (Updated 10/24/22 @ 13:55 by Soledad Lin RN) Are you a primary pharmacist critical care to a significant other at home: No Do you presently have visiting nurse or other home services: Yes ([employer]) Alcohol intake: former Patient Tobacco Use Status: Former Tobacco user Quit Date: 2006 Tobacco use type: Cigarette Use of substances other than those prescribed or required for medical reasons: Yes Substance Use Type: Marijuana Substance Use Type Other:: former use crack/cocaine>20 yr ago Substance Use Frequency: Daily Have you been hit, kicked, punched, or otherwise hurt by someone within the past year? If so, by whom?: No Are you DNR?: No Advance Directives: No Advance Directives Information Provided: Yes (brochure mailed) Advance Directives on File: No Recently lost weight without trying: No Eating poorly because of decreased appetite: No Nutrition Risks: No Nutritional Risk Poor oral hygiene: No (upper partial) Meds Allergies Allergy/AdvReac Type Severity Reaction Status Date / Time linagliptin [From TRADJENTA] Allergy Intermediate RASH Verified 10/29/22 06:40 Hgrduqc-SRE-DwG Reductase Allergy Intermediate ITCHY,SKIN Verified 10/29/22 06:40 Inhibitor BREAKDOWN [XWZCCVZ-NDT-LNX REDUCTASE INHIBITOR] Home Medications Medication Instructions Recorded Confirmed Last Taken Type baclofen 20 mg tablet 20 mg PO BEDTIME 08/31/20 10/24/22 09/07/22 History carbamazepine 200 mg tablet 200 mg PO BEDTIME 08/31/20 10/24/22 09/07/22 History cyanocobalamin (vitamin B-12) 1,000 mcg PO DAILY 08/31/20 10/24/22 09/07/22 History 1,000 mcg tablet metformin 1,000 mg tablet 1,000 mg PO BID 08/31/20 10/24/22 09/07/22 History pregabalin 300 mg capsule 300 mg PO BID 08/31/20 11/12/22 11/12/22 05:00 History quetiapine 25 mg tablet 25 mg PO BEDTIME 08/31/20 10/24/22 09/07/22 History bupropion HCl 300 mg 24 hr tablet, 300 mg PO QAM 10/14/20 10/24/22 10/29/22 05:15 History extended release duloxetine 60 mg capsule,delayed 60 mg PO DAILY 10/14/20 10/24/22 10/29/22 05:15 History release lamotrigine 200 mg tablet 200 mg PO BID 10/14/20 10/24/22 10/29/22 05:15 History prazosin 5 mg capsule 7 mg PO BEDTIME 10/14/20 10/24/22 09/06/22 History blood sugar diagnostic #10 ea 02/15/21 10/24/22 Unknown History blood-glucose meter #1 ea 02/15/21 10/24/22 Unknown History naproxen 500 mg tablet (Naprosyn) 500 mg PO BEDTIME PRN pain 10/25/21 10/24/22 10/26/22 History bupropion HCl 150 mg 24 hr tablet, 150 mg PO QAM 12/20/21 10/24/22 10/29/22 05:15 History extended release duloxetine 30 mg capsule,delayed 30 mg PO DAILY 12/20/21 10/24/22 10/29/22 05:15 History release lancets 28 gauge (FreeStyle #100 ea 02/20/22 10/24/22 Unknown History Lancets) Exam Exam Date and Time: November 09, 2022 1105 Height,Weight and Vital Signs: Height 5 ft 10 in Weight 75.75 kg Pertinent Lab Results Pertinent Lab Results: Laboratory Tests 06/03/22 06/03/22 22:26 22:26 WBC 6.9 Hgb 15.8 Hct 45.3 Plt Count 195 Sodium 141 Potassium 4.3 Chloride 101 Carbon Dioxide 22 BUN 18 H Creatinine 0.95 Assessment and Plan Assessment Anesthesia Assessment: Chart Reviewed Final Anesthetic Review Family History of Problems with Anesthesia: No History of Problems with Anesthesia: No Documented by User: Smith Catherine MD 11/12/22 07:35 [facility] Past Medical History Medical History Arthritis Benign prostatic hyperplasia with lower urinary tract symptoms Hematuria History of COVID-19 Hypercalcemia Left lower quadrant pain Low back pain Other obstructive and reflux uropathy Peripheral neuropathy PTSD (post-traumatic stress disorder) Type 2 diabetes mellitus with unspecified complications Unintentional weight loss Urgency incontinence Urinary frequency Surgical History Surgical History H/O colonoscopy History of prostate surgery History of surgery Hx of cardiac catheterization Hx of cystoscopy Hx of cystoscopy Hx of cystoscopy Social History Social History (Updated 10/24/22 @ 13:55 by Soledad Lin RN) Are you a primary pharmacist critical care to a significant other at home: No Do you presently have visiting nurse or other home services: Yes ([employer]) Alcohol intake: former Patient Tobacco Use Status: Former Tobacco user Quit Date: 2006 Tobacco use type: Cigarette Use of substances other than those prescribed or required for medical reasons: Yes Substance Use Type: Marijuana Substance Use Type Other:: former use crack/cocaine>20 yr ago Substance Use Frequency: Daily Have you been hit, kicked, punched, or otherwise hurt by someone within the past year? If so, by whom?: No Are you DNR?: No Advance Directives: No Advance Directives Information Provided: Yes (brochure mailed) Advance Directives on File: No Recently lost weight without trying: No Eating poorly because of decreased appetite: No Nutrition Risks: No Nutritional Risk Poor oral hygiene: No (upper partial) Meds Allergies Allergy/AdvReac Type Severity Reaction Status Date / Time linagliptin [From TRADJENTA] Allergy Intermediate RASH Verified 10/29/22 06:40 Bobzbdz-KDA-XrZ Reductase Allergy Intermediate ITCHY,SKIN Verified 10/29/22 06:40 Inhibitor BREAKDOWN [DEHWDFN-BDX-ZZN REDUCTASE INHIBITOR] Home Medications Medication Instructions Recorded Confirmed Last Taken Type baclofen 20 mg tablet 20 mg PO BEDTIME 08/31/20 10/24/22 09/07/22 History carbamazepine 200 mg tablet 200 mg PO BEDTIME 08/31/20 10/24/22 09/07/22 History cyanocobalamin (vitamin B-12) 1,000 mcg PO DAILY 08/31/20 10/24/22 09/07/22 His tory 1,000 mcg tablet metformin 1,000 mg tablet 1,000 mg PO BID 08/31/20 10/24/22 09/07/22 History pregabalin 300 mg capsule 300 mg PO BID 08/31/20 11/12/22 11/12/22 05:00 History quetiapine 25 mg tablet 25 mg PO BEDTIME 08/31/20 10/24/22 09/07/22 History bupropion HCl 300 mg 24 hr tablet, 300 mg PO QAM 10/14/20 10/24/22 10/29/22 05:15 History extended release duloxetine 60 mg capsule,delayed 60 mg PO DAILY 10/14/20 10/24/22 10/29/22 05:15 History release lamotrigine 200 mg tablet 200 mg PO BID 10/14/20 10/24/22 10/29/22 05:15 History prazosin 5 mg capsule 7 mg PO BEDTIME 10/14/20 10/24/22 09/06/22 History blood sugar diagnostic #10 ea 02/15/21 10/24/22 Unknown History blood-glucose meter #1 ea 02/15/21 10/24/22 Unknown History naproxen 500 mg tablet (Naprosyn) 500 mg PO BEDTIME PRN pain 10/25/21 10/24/22 10/26/22 History bupropion HCl 150 mg 24 hr tablet, 150 mg PO QAM 12/20/21 10/24/22 10/29/22 05:15 History extended release duloxetine 30 mg capsule,delayed 30 mg PO DAILY 12/20/21 10/24/22 10/29/22 05:15 History release lancets 28 gauge (FreeStyle #100 ea 02/20/22 10/24/22 Unknown History Lancets) Exam Airway Mallampati Class: II TM Dist: >3cm Neck ROM: Full Heart: ok Lungs: ok Assessment and Plan Assessment Anesthesia Assessment: Anesthesia Plan Discussed Final Anesthetic Review NPO: Yes ASA Class: II Final Preanesthetic Review: No Changes in Pt Med Stat, Meds/Allgs Chart Reviewed, Consent Obtained/Reviewed and Anes Risks/Benef Reviewed Patient Risk: Intermediate Procedure Risk: Intermediate Anesthetic Plan Anesthetic Plan: GA, MAC: and Agree w/ Assess. and Plan Disposition: Standard PACU
[2022-11-12 06:22] VITALS: BP 93/59; PULSE 80; RESP 16; TEMP 36.3; O2SAT 98; BMI 22.8
[2022-11-12 06:23] LABS: Glucose, Whole Blood 149 mg/dL (60-115)
--- NOTE | 2022-11-12 06:38 | PC.NURSE ---
patient has low blood pressure, states when i was here 2 weeks ago it was low, but not this low denies any dizziness/lightheadness today, but states he was dizzy yesterday.
--- NOTE | 2022-11-12 07:51 | MHC.SHP ---
Pre-Procedural Eval Section A Date of Service: 11/12/22 The patient is an INPATIENT: No Changes since office visit: No Cold of Flu in the past 2 weeks, No New Medical Problems, No Changes in Medication and No Patient answered all questions The History & Physical has been completed within 30 days and I have reviewed it.: No Section B Chief Complaint: Overactive bladder Allergies: Allergies Allergy/AdvReac Type Severity Reaction Status Date / Time linagliptin [From TRADJENTA] Allergy Intermediate RASH Verified 10/29/22 06:40 Nghprwb-SPJ-AcU Reductase Allergy Intermediate ITCHY,SKIN Verified 10/29/22 06:40 Inhibitor BREAKDOWN [JZQSULI-EPH-FKL REDUCTASE INHIBITOR] Review of Systems Sugical H&P ROS: Negative: Constitution, Cardiovascular, Respiratory, Neurological, Psychiatric, Hem-Onc, Allergic/Immunologic, Gastrointestinal, Genitourinary, Musculoskeletal, Integumentary, Endocrine and Eyes/Ears/Nose/Throat Exam Surgical H&P Exam: Normal: HEENT, Normal: Heart, Normal: Lungs, Normal: Extremities, Normal: Abdomen, Normal: Skin and Normal: Neurological Plan Diagnosis/Plan: Unchanged (interstim generator placement) I have reviewed the history and physical and performed a pertinent physical examination on my patient. No changes have occurred unless specified. Time Spent With Patient Time: Total time managing care of this patient today ____ minutes.
--- NOTE | 2022-11-12 08:24 | W.PM.OPN ---
Operative Note Operative Note Date of Service: 11/12/22 Narrative: PreOperative Diagnosis:?? Overactive bladder with urinary urgency and frequency Post Operative Diagnosis:? Overactive bladder with urinary urgency and frequency Procedure: 1) Placement of InterStim generator 2) Generator Programming Surgeon: Dr Eric Randhawa Anesthesia:? sedation Indications for procedure: Trial lead had been placed and was successful with control. Here for generator placement Procedure: After informed consent was verified the patient was brought to the operating room.? Sedation anesthesia was administered per protocol. The patient was placed in a prone position and prepped and draped in a sterile fashion.? Safety pause time-out was performed. Temporary lead was divided Local anesthetic was infiltrated around the initial battery pocket incision on the left lateral superior buttock.? Incision was made and taken down through the skin until the wire connector was encountered. This was removed from the pocket. The temporary lead was removed from the connector. The pocket was expanded using sharp and blunt dissection to accommodate the generator. The generator was connected and placed in the pocket after the pocket was irrigated. Testing and programming was performed to confirm generator activity and lead impedance. Incision was closed with running 3-0 Vicryl sutures Skin was closed with running 4-0 Monocryl and dressing applied. CPT? generator placement? 13811, [id number]
[2022-11-12 08:33] VITALS: BP 117/73; PULSE 66; RESP 16; TEMP 36.2; O2SAT 98
[2022-11-12 08:38] VITALS: BP 119/85; PULSE 64; RESP 16; O2SAT 98
[2022-11-12 08:43] VITALS: BP 121/76; PULSE 67; RESP 16; O2SAT 98
[2022-11-12 08:48] VITALS: BP 114/76; PULSE 67; RESP 16; O2SAT 100
[2022-11-12 09:03] VITALS: BP 115/77; PULSE 67; RESP 16; TEMP 36.4; O2SAT 100
== END 2022-11-12 10:15 | disposition home or self-care (01) ==
PROVIDERS: PCP Internal Medicine; Visit Provider Urology
PROC: (CPT 64590; principal; 2022-11-12 07:30)
DX: N32.81 Overactive bladder (principal); N39.0 Urinary tract infection, site not specified; N40.1 Benign prostatic hyperplasia with lower urinary tract symptoms; R31.9 Hematuria, unspecified; R35.0 Frequency of micturition; N13.8 Other obstructive and reflux uropathy; E83.52 Hypercalcemia; N41.9 Inflammatory disease of prostate, unspecified; E11.9 Type 2 diabetes mellitus without complications; F43.10 Post-traumatic stress disorder, unspecified; F12.90 Cannabis use, unspecified, uncomplicated; F14.90 Cocaine use, unspecified, uncomplicated; Z88.8 Allergy status to other drugs, medicaments and biological substances; Z87.891 Personal history of nicotine dependence
CPT/HCPCS: 64590; 82947; C1767; C1787; J0690; J2250; J2795; J3010; J3370

== ENCOUNTER 2022-11-20 14:44 | Outpatient (REF) | payer OTHER, SELFPAY ==
[2022-11-20 18:13] LABS: Prostate Specific Antigen 0.64 ng/mL (<0.05-4.0)
== END 2022-11-20 14:45 | disposition home or self-care (01) ==
LOC: HO.LAB 14:44
PROVIDERS: Absent Provider Urology; PCP Internal Medicine; Visit Provider Anesthesiology
DX: N40.1 Benign prostatic hyperplasia with lower urinary tract symptoms (principal); N13.8 Other obstructive and reflux uropathy; Z12.5 Encounter for screening for malignant neoplasm of prostate
CPT/HCPCS: 36415; 84153

== ENCOUNTER 2022-11-26 14:10 | Outpatient (REF) | payer OTHER, SELFPAY ==
--- NOTE | ~2022-11-26 | XR_ITS ---
EXAMINATION: XR PELVIS XR HIP, BILATERAL CLINICAL INFORMATION: Chronic pain syndrome. COMPARISON: Several fluoroscopic images of pelvis and SI joints are obtained 10/29/2022, 09/07/2022. TECHNIQUE: 2 views each hip. 2 views pelvis. FINDINGS: Left Hip: There is mild reduction left hip joint space but no bony erosive changes, fracture, dislocation or loose bodies. The soft tissues are normal. Incidental note is made of left sacral electrode for pain management. Right Hip: There is minimal loss of right hip joint space. No bony erosive changes, loose bodies or soft tissue swelling. AP Pelvis: There is normal symmetry of bilateral SI joints. Evidence of left SI joint fusion device XR/XR pelvis 1-2V IMPRESSION: 1. Mild early degenerative changes bilateral hip joints. No visible acute fracture, dislocation or subluxation seen. 2. There is evidence of left SI joint fusion device.
--- NOTE | ~2022-11-26 | XR_ITS ---
EXAMINATION: XR PELVIS XR HIP, BILATERAL CLINICAL INFORMATION: Chronic pain syndrome. COMPARISON: Several fluoroscopic images of pelvis and SI joints are obtained 10/29/2022, 09/07/2022. TECHNIQUE: 2 views each hip. 2 views pelvis. FINDINGS: Left Hip: There is mild reduction left hip joint space but no bony erosive changes, fracture, dislocation or loose bodies. The soft tissues are normal. Incidental note is made of left sacral electrode for pain management. Right Hip: There is minimal loss of right hip joint space. No bony erosive changes, loose bodies or soft tissue swelling. AP Pelvis: There is normal symmetry of bilateral SI joints. Evidence of left SI joint fusion device XR/XR hips MICHAEL min 3V IMPRESSION: 1. Mild early degenerative changes bilateral hip joints. No visible acute fracture, dislocation or subluxation seen. 2. There is evidence of left SI joint fusion device.
[2022-11-26 14:21] LABS: MANUAL DIFF FLAG NO
[2022-11-26 14:50] LABS: Basophils Percent Auto 0.2 % (0-2); Eosinophils Absolute Auto 0.2 X10*3/uL (0.0-0.4); Eosinophils Percent Auto 2.3 % (0-4); Hematocrit 36.6 % (42.0-52.0); Hemoglobin 11.9 g/dl (14.0-18.0); Imm Gran Abs Auto 0.03 X10*3/uL (0.00-0.03); Imm Gran Pct Auto 0.5 % (0.0-0.4); Lymphocytes Absolute Auto 1.7 X10*3/uL (1.2-4.9); Lymphocytes Percent Auto 25.3 % (20-40); Mean Corpuscular HGB Conc 32.5 g/dl (31.0-36.0); Mean Corpuscular Hemoglobin 29.2 pg (27.0-33.0); Mean Corpuscular Volume 89.9 fL (80.0-98.0); Mean Platelet Volume 11.4 fL (9.4-12.4); Monocytes Absolute Auto 0.4 X10*3/uL (0.1-1.2); Monocytes Percent Auto 6.1 % (2-11); Neutrophils Absolute Auto 4.3 x10*3/uL (2.0-8.3); Neutrophils Percent Auto 65.6 % (45-73); Platelet Count 168 X10*3/uL (160-400); Red Blood Count 4.07 X10*6/uL (4.60-5.80); Red Cell Distribution Width 12.7 % (11.0-16.0); White Blood Count 6.6 X10*3/uL (4.8-10.8)
[2022-11-26 15:32] LABS: Estimated Average Glucose 131 mg/dL; Hemoglobin A1c % 6.2 %
[2022-11-26 15:45] LABS: Creatinine Urine 143.69 mg/dL; Microalbum/Creatinine Ratio Ur 9.7 ug/mg cr
[2022-11-26 16:49] LABS: Alanine Aminotransferase 21 U/L (0-40); Albumin Level 4.4 g/dL (3.5-5.0); Alkaline Phosphatase 126 U/L (39-117); Anion Gap 14 (12-20); Aspartate Amino Transferase 17 U/L (5-37); Bilirubin Total 0.3 mg/dL (0.0-1.0); Blood Urea Nitrogen 19 mg/dL (9-16); Calcium 9.7 mg/dL (8.4-10.2); Carbon Dioxide 27 mmol/L (22-29); Chloride 104 mmol/L (96-108); Cholesterol 111 mg/dL; Estimated Glomerular Filt Rate > 60; Glucose Random 229 mg/dL (60-115); HDL Cholesterol 51 mg/dL; LDL Cholesterol Calculated 47 mg/dl; Sodium 140 mmol/L (135-145); Total Protein 6.3 g/dL (6.5-8.0); Triglycerides 69 mg/dL
[2022-11-26 17:38] LABS: Prostate Specific Antigen Scr 0.59 ng/mL (<0.05-4.0); Thyroid Stimulating Hormone 0.46 uIU/mL (0.32-4.0)
== END 2022-11-26 14:11 | disposition home or self-care (01) ==
LOC: HO.LAB 14:10
PROVIDERS: Visit Provider Internal Medicine
DX: Z00.00 Encounter for general adult medical examination without abnormal findings (principal); Z12.5 Encounter for screening for malignant neoplasm of prostate; E11.9 Type 2 diabetes mellitus without complications; E78.00 Pure hypercholesterolemia, unspecified; N30.11 Interstitial cystitis (chronic) with hematuria; M16.0 Bilateral primary osteoarthritis of hip; G89.4 Chronic pain syndrome
CPT/HCPCS: 36415; 72170; 73522; 80053; 80061; 82043; 83036; 84153; 84443; 85025

== ENCOUNTER → 2022-11-27 13:49 | Outpatient (BNVA) | payer OTHER, SELFPAY | PROVIDERS: PCP Internal Medicine; Visit Provider Urology | DX: N40.1 Benign prostatic hyperplasia with lower urinary tract symptoms (principal); N13.8 Other obstructive and reflux uropathy; N30.10 Interstitial cystitis (chronic) without hematuria; N32.81 Overactive bladder | CPT/HCPCS: Q3014 ==

== ENCOUNTER → 2022-12-03 14:12 | Outpatient (BNVA) | payer OTHER, SELFPAY | PROVIDERS: PCP Internal Medicine; Visit Provider Anesthesiology | DX: M46.1 Sacroiliitis, not elsewhere classified (principal); M53.3 Sacrococcygeal disorders, not elsewhere classified; M16.0 Bilateral primary osteoarthritis of hip; G89.4 Chronic pain syndrome | CPT/HCPCS: 99212 ==

== ENCOUNTER → 2023-01-15 14:53 | Outpatient (BNVA) | payer OTHER, SELFPAY | PROVIDERS: PCP Internal Medicine; Referring Provider Internal Medicine; Visit Provider Surgery | DX: K60.2 Anal fissure, unspecified (principal) | CPT/HCPCS: 99202 ==

== ENCOUNTER → 2023-02-06 15:10 | Outpatient (BNVA) | payer OTHER, SELFPAY | PROVIDERS: PCP Internal Medicine; Visit Provider Anesthesiology | DX: M46.1 Sacroiliitis, not elsewhere classified (principal); M53.3 Sacrococcygeal disorders, not elsewhere classified; M16.0 Bilateral primary osteoarthritis of hip; M79.18 Myalgia, other site; G89.4 Chronic pain syndrome | CPT/HCPCS: 99212 ==

== ENCOUNTER 2023-02-16 08:47 | Outpatient (REF) | payer OTHER, SELFPAY ==
[2023-02-16 09:05] LABS: MANUAL DIFF FLAG NO
[2023-02-16 09:34] LABS: Basophils Percent Auto 0.4 % (0-2); Eosinophils Absolute Auto 0.1 X10*3/uL (0.0-0.4); Eosinophils Percent Auto 2.3 % (0-4); Hematocrit 36.1 % (42.0-52.0); Hemoglobin 11.9 g/dl (14.0-18.0); Imm Gran Abs Auto 0.01 X10*3/uL (0.00-0.03); Imm Gran Pct Auto 0.2 % (0.0-0.4); Lymphocytes Absolute Auto 1.8 X10*3/uL (1.2-4.9); Lymphocytes Percent Auto 31.6 % (20-40); Mean Corpuscular Hemoglobin 29.2 pg (27.0-33.0); Mean Corpuscular Volume 88.5 fL (80.0-98.0); Mean Platelet Volume 11.1 fL (9.4-12.4); Monocytes Absolute Auto 0.4 X10*3/uL (0.1-1.2); Monocytes Percent Auto 7.2 % (2-11); Neutrophils Absolute Auto 3.3 x10*3/uL (2.0-8.3); Neutrophils Percent Auto 58.3 % (45-73); Platelet Count 159 X10*3/uL (160-400); Red Blood Count 4.08 X10*6/uL (4.60-5.80); Red Cell Distribution Width 13.3 % (11.0-16.0); White Blood Count 5.7 X10*3/uL (4.8-10.8)
[2023-02-16 09:43] LABS: Estimated Average Glucose 131 mg/dL; Hemoglobin A1c % 6.2 %
[2023-02-16 10:24] LABS: Alanine Aminotransferase 13 U/L (0-40); Albumin Level 4.1 g/dL (3.5-5.0); Alkaline Phosphatase 98 U/L (39-117); Anion Gap 11 (12-20); Aspartate Amino Transferase 13 U/L (5-37); Bilirubin Total 0.3 mg/dL (0.0-1.0); Blood Urea Nitrogen 17 mg/dL (9-16); Calcium 9.2 mg/dL (8.4-10.2); Carbon Dioxide 28 mmol/L (22-29); Chloride 104 mmol/L (96-108); Cholesterol 120 mg/dL; Estimated Glomerular Filt Rate > 60; Glucose Random 112 mg/dL (60-115); HDL Cholesterol 49 mg/dL; LDL Cholesterol Calculated 51 mg/dl; Potassium 4.3 mmol/L (3.3-5.1); Sodium 139 mmol/L (135-145); Total Protein 6.4 g/dL (6.5-8.0); Triglycerides 103 mg/dL
[2023-02-16 10:39] LABS: Free T4 (Free Thyroxine) 0.93 ng/dL (0.71-1.85); Thyroid Stimulating Hormone 1.16 uIU/mL (0.32-4.0)
== END 2023-02-16 08:48 | disposition home or self-care (01) ==
LOC: HO.LAB 08:47
PROVIDERS: PCP Internal Medicine; Visit Provider Psychiatry & Neurology Psychiatry
DX: Z79.899 Other long term (current) drug therapy (principal)
CPT/HCPCS: 36415; 80053; 80061; 83036; 84439; 84443; 85025

== ENCOUNTER 2023-03-14 13:46 | Outpatient (AMB) | payer OTHER, SELFPAY ==
--- NOTE | 2023-03-14 13:59 | A.OFFVIS_ITS ---
Intake Vital Signs 03/14/23 14:00 Height 6 ft Weight 161 lb BMI 21.8 BP 124/72 Blood Pressure Location Lt brachial Position Sitting Respiration 16 Pulse 90 Pulse Source Pulse Oximeter Pulse Oximetry (%) 100 Oxygen Delivery Method Room Air Intake Visit Reasons: SACROILIAC PAIN Allergies linagliptin [From TRADJENTA] Allergy (Intermediate, Verified 03/14/23 13:59) RASH Fgivhlw-QUQ-YbJ Reductase Inhibitor [QBMZGOF-KWV-GRE REDUCTASE INHIBITOR] Allergy (Intermediate, Verified 03/14/23 13:59) ITCHY,SKIN BREAKDOWN HPI HPI Comments History of Present Illness Details Linus is a pleasant 52 year old male who presents back to the office for follow up left hip pain. Patient reports he was seen in the office last month for similar pain and was prescribed Tizanidine three times daily. States he tried but did not receive any relief with the muscle relaxer, he even tried taking 2 and 3 tabs at once with no help. He also went to the dispensary where he bought CBD cream but did not note any benefit with this either. Prior: Linus is very pleasant 52 years old gentleman who is in my office again with new complaint. He reports that pain with movement related to sacroiliac joint on the left with was addressed with left SI joint fusion performed on 09/07/2022 is not bothering him anymore. However he reports that 2 weeks ago experience pain in the left side of the lower back radiating to the left flank. He reports the pain is getting more severe his torso flexion and rotation. He has been implanted sacral nerve stimulation device near this area so the trigger point injections are potentially risky for disruption of the stimulating leads. It sound to me that the patient is suffering from myofascial pain syndrome. To begin his treatment I offered him to start him on muscle relaxant tizanidine 2 mg t.i.d.. If this does will help him minimally without side effects I will increase the doses of the tizanidine. We agreed that he will give us a call in couple of weeks and if pain is continue to bother him schedule yet 1 more appointment. Prior: ? He received bilateral sacroiliac joint injections diagnostic with ropivacaine and he had 100% pain relief for the 1st 7 hours after the injection. He received diagnostic injection on 08/07/2022.? [facility] Medical History Arthritis Benign prostatic hyperplasia with lower urinary tract symptoms Hematuria History of COVID-19 Hypercalcemia Left lower quadrant pain Low back pain Other obstructive and reflux uropathy Peripheral neuropathy PTSD (post-traumatic stress disorder) Type 2 diabetes mellitus with unspecified complications Unintentional weight loss Urgency incontinence Urinary frequency Surgical History H/O colonoscopy History of prostate surgery History of surgery Hx of cardiac catheterization Hx of cystoscopy Hx of cystoscopy Hx of cystoscopy Social History Are you a primary landcare facilitator to a significant other at home: No Do you presently have visiting nurse or other home services: Yes ([employer]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 Answers questions appropriately. Fully engaged in examination. Skin: warm, dry, intact without visible rashes or lesions. HEENT: Normocephalic. Conjuntivae clear without exudate. Sclera non-icteric. Hearing intact. Cardiac: External chest normal in appearance. Respiratory: No signs of trauma. No signs of respiratory distress. No cough, audible wheezing or stridor. Abdomen: without gross distension. MS:Significant tenderness noted on palpation of the lateral hip over proximal greater trochanter. Patient ambulates with antalgic gait with cane for assistance Neurological: Oriented to person, place, time and situation. Thought process intact. No gait abnormalities appreciated. Psychiatric: Appropriate mood and affect. Good judgment and insight. Office Procedures Therapeutic Injection Therapeutic Injection 50070-Xubelzg Point Injection 1 or 2 sites All charges added?: Procedure code (CPT) selection complete Office Meds triamcinolone acetonide Performing Provider: Jose R Maldonado MD Administered by: Jose R Maldonado MD on 03/14/23 14:20 Dose Route Admin Location Lot Number Expiration Date [place] Gluing [employer] Leader 40 mg Infiltration Left hip [id number] 10/24/24 [address]-6 [employer] bupivacaine (PF) Performing Provider: Jose R Maldonado MD Administered by: Jose R Maldonado MD on 03/14/23 14:20 Dose Route Admin Location Lot Number Expiration Date [place] Gluing Crew Leader 9 mL Infiltration left hip [id number] 10/24/24 8380-8778-64 [employer] Results Reviewed Results Reviewed: EXAMINATION: XR PELVIS XR HIP, BILATERAL CLINICAL INFORMATION: Chronic pain syndrome. COMPARISON: Several fluoroscopic images of pelvis and SI joints are obtained 10/29/2022, 09/07/2022. TECHNIQUE: 2 views each hip. 2 views pelvis. FINDINGS: Left Hip: There is mild reduction left hip joint space but no bony erosive changes, fracture, dislocation or loose bodies. The soft tissues are normal. Incidental note is made of left sacral electrode for pain management. Right Hip: There is minimal loss of right hip joint space. No bony erosive changes, loose bodies or soft tissue swelling. AP Pelvis: There is normal symmetry of bilateral SI joints. Evidence of left SI joint fusion device IMPRESSION: 1. Mild early degenerative changes bilateral hip joints. No visible acute fracture, dislocation or subluxation seen. ? 2. There is evidence of left SI joint fusion device. Assessment & Plan Assessment & Plan (1) Left hip pain: Code(s): M25.552 - Pain in left hip (2) Pain of both sacroiliac joints: Code(s): M53.3 - Sacrococcygeal disorders, not elsewhere classified (3) Osteoarthritis of hips, bilateral: Code(s): M16.0 - Bilateral primary osteoarthritis of hip (4) Chronic pain syndrome: Code(s): G89.4 - Chronic pain syndrome (5) Myofascial pain syndrome: Code(s): M79.18 - Myalgia, other site (6) Myofascial pain syndrome of lumbar spine: Code(s): M79.18 - Myalgia, other site Plan Linus is a pleasant 52 year old male who presented back to the office for continued left hip pain. Patient status post sacroiliac joint fusion on the left Patient reports no improvement with Tizanidine prescribed at last visit. Significantly tender over proximal greater trochanter. Left Hip Trigger Point Injection: After obtaining informed consent the patient exposed the left hip area. Time-out was obtained delineating correct site and side of the procedure. The area of the left hip was prepped with ChloraPrep. Sterilely obtained Bupivacaine 0.5% 9cc mixed with Triamcinolone Acetonide 40mg was injected into the most pain painful point just above the palpated trochanter. Upon completion of the injection needle was withdrawn sterile Band- Aid was applied. The patient tolerated procedure well. No immediate side effects were noted. All questions and concerns were addressed during visit today. Patient will follow up as needed. Orders: Orders Trigger Point Injection Today M25.552 - Pain in left hip Coding Level of Care Code Est Pt Level 3 (54691) Diagnoses Left hip pain M25.552 Pain of both sacroiliac joints M53.3 Osteoarthritis of hips, bilateral M16.0 Chronic pain syndrome G89.4 Myofascial pain syndrome M79.18 Myofascial pain syndrome of lumbar spine M79.18 CPT Codes Therapeutic Injection - Ther Injection 1: 32690-Sztszig Point Injection 1 or 2 sites ([id number])
[2023-03-14 14:00] VITALS: BP 124/72; PULSE 90; RESP 16; O2SAT 100; BMI 21.8
== END 2023-03-14 14:17 | disposition home or self-care (01) ==
PROVIDERS: PCP Internal Medicine; Visit Provider Registered Nurse Emergency
DX: G89.4 Chronic pain syndrome (principal); M25.552 Pain in left hip; M53.3 Sacrococcygeal disorders, not elsewhere classified; M16.0 Bilateral primary osteoarthritis of hip; M79.18 Myalgia, other site
CPT/HCPCS: 20552; 99213

== ENCOUNTER → 2023-03-14 13:46 | Outpatient (BNVA) | payer OTHER, SELFPAY | PROVIDERS: PCP Internal Medicine; Visit Provider Registered Nurse Emergency | DX: G89.4 Chronic pain syndrome (principal); M79.18 Myalgia, other site; M53.3 Sacrococcygeal disorders, not elsewhere classified; M16.0 Bilateral primary osteoarthritis of hip; M25.552 Pain in left hip | CPT/HCPCS: 20552; 99212; J3300 ==

== ENCOUNTER 2023-03-30 08:45 | Outpatient (REF) | payer OTHER, SELFPAY ==
[2023-03-30 10:29] LABS: Estimated Average Glucose 131 mg/dL; Hemoglobin A1c % 6.2 %
[2023-03-30 11:46] LABS: Alanine Aminotransferase 19 U/L (0-40); Albumin Level 4.4 g/dL (3.5-5.0); Alkaline Phosphatase 100 U/L (39-117); Anion Gap 15 (12-20); Aspartate Amino Transferase 15 U/L (5-37); Bilirubin Total 0.3 mg/dL (0.0-1.0); Blood Urea Nitrogen 18 mg/dL (9-16); Calcium 9.6 mg/dL (8.4-10.2); Carbon Dioxide 25 mmol/L (22-29); Chloride 104 mmol/L (96-108); Estimated Glomerular Filt Rate > 60; Glucose Random 122 mg/dL (60-115); Potassium 4.5 mmol/L (3.3-5.1); Sodium 139 mmol/L (135-145); Total Protein 6.7 g/dL (6.5-8.0)
[2023-03-30 12:05] LABS: Vitamin B12 533 pg/mL (200-900)
== END 2023-03-30 08:46 | disposition home or self-care (01) ==
LOC: HO.LAB 08:45
PROVIDERS: PCP Internal Medicine; Visit Provider Internal Medicine
DX: E11.9 Type 2 diabetes mellitus without complications (principal); E78.00 Pure hypercholesterolemia, unspecified; F43.12 Post-traumatic stress disorder, chronic; N52.9 Male erectile dysfunction, unspecified; R80.8 Other proteinuria
CPT/HCPCS: 36415; 80053; 82607; 83036

== ENCOUNTER 2023-05-30 18:54 | Emergency (ER) | payer OTHER, SELFPAY ==
[2023-05-30 19:08] VITALS: BP 144/88; BP 150/89; PULSE 64; PULSE 70; RESP 16; TEMP 36.6; O2SAT 100; BMI 22.4
--- NOTE | 2023-05-30 19:12 | PC.NURSE ---
Pt presents to ED via EMS for reports of chest pain and left sided pain. 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 Pt went inside and pain got worse, admits to smoking some marijuana. Pt had a stroke years ago and stated this feels the same. Pt called 911, EMS started a 20g IV in the right AC, and gave 324 baby aspirin. Pt was normal sinus on the monitor. Pt presents A&Ox4, GCS 15, with warm, dry skin. Negative facial droop or trouble speaking. Dr Soto evaluated ptat the bedside and decided pt was not a stroke alert and pt was brought to room 5. Pt was placed on computer instructor and given the call hoover.
[2023-05-30 19:19] VITALS: BP 150/81; PULSE 64; RESP 16; TEMP 36.6; O2SAT 100
[2023-05-30 19:25] VITALS: PULSE 64
--- NOTE | 2023-05-30 19:31 | ED.CHESTPAIN ---
HPI - Chest Pain General Chief Complaint: Chest Pain Stated Complaint: L side pain and weakness around 1630 Time Seen by Provider: 05/30/23 19:05 History of Present Illness HPI narrative: Patient is a 53-year-old male presents today with having left-sided chest pain. The pain is sharp. It goes to the arm. It goes to the side of his body. There is no history of dissection. It is not made worse with deep breath. Patient denies any history of blood clots. Positive history of diabetes. No history of hypertension, hypercholesterolemia. No history of smoking. No history of MA. Patient is from home. No history of traveling. No risk stratification done in the past. No history of similar pain in the past. No history of blood clots. No travel history. No history of recreational drug use. Related Data Home Medications Medication Instructions Recorded Confirmed baclofen 20 mg tablet 20 mg PO BEDTIME 08/31/20 11/27/22 carbamazepine 200 mg tablet 200 mg PO BEDTIME 08/31/20 11/27/22 metformin 1,000 mg tablet 1,000 mg PO BID 08/31/20 11/27/22 pregabalin 300 mg capsule 300 mg PO BID 08/31/20 11/27/22 quetiapine 25 mg tablet 25 mg PO BEDTIME 08/31/20 11/27/22 bupropion HCl 300 mg 24 hr tablet, 300 mg PO QAM 10/14/20 11/27/22 extended release duloxetine 60 mg capsule,delayed 60 mg PO DAILY 10/14/20 11/27/22 release lamotrigine 200 mg tablet 200 mg PO BID 10/14/20 11/27/22 prazosin 5 mg capsule 7 mg PO BEDTIME 10/14/20 11/27/22 blood sugar diagnostic #10 ea 02/15/21 11/27/22 blood-glucose meter #1 ea 02/15/21 11/27/22 naproxen 500 mg tablet (Naprosyn) 500 mg PO BEDTIME PRN pain 10/25/21 11/27/22 duloxetine 30 mg capsule,delayed 30 mg PO DAILY 12/20/21 11/27/22 release lancets 28 gauge (FreeStyle #100 ea 02/20/22 11/27/22 Lancets) Previous Rx's Medication Instructions Recorded tamsulosin 0.4 mg capsule 0.4 mg PO BEDTIME 90 days #90 caps 01/09/23 tizanidine 2 mg tablet 2 mg PO TID PRN muscle spasticity 05/06/23 30 days #90 tabs finasteride 5 mg tablet 5 mg PO DAILY 90 days #90 tabs 05/27/23 azithromycin 250 mg tablet See Rx Instructions PO .COMPLEX 05/30/23 upper resp infection #6 tabs ibuprofen 400 mg tablet 400 mg PO Q6H PRN pain #20 tabs 05/30/23 Allergies Allergy/AdvReac Type Severity Reaction Status Date / Time linagliptin [From TRADJENTA] Allergy Intermediate RASH Verified 03/14/23 13:59 [id number] Reductase Allergy Intermediate ITCHY,SKIN Verified 03/14/23 13:59 Inhibitor BREAKDOWN [[id number] REDUCTASE INHIBITOR] Review of Systems Review of Systems: Positive left-sided chest pain Yes all other systems are reviewed and are negative [facility] Past Medical History Medical History History of COVID-19 Low back pain Peripheral neuropathy Arthritis Unintentional weight loss PTSD (post-traumatic stress disorder) Hematuria Left lower quadrant pain Urinary frequency Type 2 diabetes mellitus with unspecified complications Other obstructive and reflux uropathy Benign prostatic hyperplasia with lower urinary tract symptoms Urgency incontinence Hypercalcemia Surgical History History of surgery Hx of cystoscopy Hx of cardiac catheterization History of prostate surgery Hx of cystoscopy Hx of cystoscopy H/O colonoscopy Social History Social History Are you a primary manager care management to a significant other at home: No Do you presently have visiting nurse or other home services: Yes ([employer]) Alcohol intake: former Patient Tobacco Use Status: Former Tobacco user Quit Date: 2006 Tobacco use type: Cigarette Smoked in Last 30 Days: No Use of substances other than those prescribed or required for medical reasons: Yes Substance Use Type: Marijuana Substance Use Frequency: Daily Advance Directives: Yes Advance Directives Information Provided: No Advance Directives on File: No Physical Exam Vital Signs: Vital Signs: Last Vital Signs Temp 97.9 F 05/30/23 19:19 Pulse 68 05/30/23 20:00 Resp 14 05/30/23 20:00 BP 142/87 H 05/30/23 20:00 Pulse Ox 99 05/30/23 20:00 O2 Del Method Room Air 05/30/23 20:00 BMI result Body Mass Index 22.4 Appearance: Alert. Oriented X3. No acute distress. Eyes: Pupils equal, round and reactive to light. ENT: Pharynx normal. Neck: Normal inspection. Neck supple. No lymph nodes noted. No crepitus CVS: Normal heart rate and rhythm. Pulses normal. Normal S1 and S2 Respiratory: No respiratory distress. Breath sounds normal. No Wheezing. No rales Abdomen: Soft and nontender. No rigidity. No distention. good BS x4 Skin: Skin warm and dry. Normal skin color. Normal skin turgor. Extremities: No lower extremity edema. Neurovascular intact to all extremities. No Lacerations. No Rash Neuro: Oriented X 3. No motor deficit. No sensory deficit. Moving all extermities. No slurred speech Medications Administered Discontinued Medications Generic Name Dose Route Start Last Admin Trade Name Freq PRN Reason Stop Dose Admin Hydromorphone HCl 0.5 mg 05/30/23 20:27 05/30/23 20:53 Hydromorphone Hcl 0.5 Mg/0.5 Ml Syringe IVPUSH 05/30/23 20:28 0.5 mg ONCE ONE Administration Protocol Iohexol 80 ml 05/30/23 20:56 05/30/23 20:57 Iohexol 350 Mg/Ml 100 Ml Infus..Btl IV 05/30/23 20:57 80 ml ONCE ONE Administration Ketorolac Tromethamine 30 mg 05/30/23 20:27 05/30/23 20:54 Ketorolac Tromethamine 30 Mg/Ml Vial IVPUSH 05/30/23 20:28 30 mg ONCE ONE Administration Nitroglycerin 0.5 inch 05/30/23 19:31 05/30/23 19:38 Nitroglycerin 2 % Oint 1 Gm Packet TRANSDERMA 05/30/23 19:32 0.5 inch ONCE ONE Administration Ondansetron HCl 4 mg 05/30/23 21:48 05/30/23 21:50 Ondansetron Hcl 4 Mg/2 Ml Vial IVPUSH 05/30/23 21:49 4 mg ONCE ONE Administration Medical Decision Making Medical Decision Making MDM Narrative: Positive chest pain my interpretation patient's EKG showed a sinus rhythm heart rate 60 KS QRS QTC within normal limits no ST segment elevation troponin negative patient's chest pain is atypical it is worse with specific movement. More likely musculoskeletal. However patient complaining of extreme pain going to the back. His D-dimer is negative in setting of low risk for PE unlikely secondary to pulmonary emboli. Patient had a CTA of the chest abdomen pelvis done is grossly negative for any acute evidence of dissection. Question small segment of bronchiectasis we will go ahead and give a Z-Fabricio. Patient to follow up on an outpatient basis. In stable condition. No pneumonia no pneumothorax was noted on CTA. No abdominal pathology noted. Differential Diagnosis Differential Diagnoses: The differential diagnosis associated with the presentation includes ACS, rib fracture, pneumothorax, musculoskeletal chest pain, PE Admission/Observation Consideration of admission/observation: Escalation of care including admission/observation considered Workup negative no need for admission Lab Data MDM Lab Attestation statement: I reviewed the patient's lab results. 05/30/23 19:54 05/30/23 19:54 Labs: Lab Results 05/30/23 Range/Units 19:54 WBC 5.4 (4.8-10.8) X10*3/uL RBC 3.99 L (4.60-5.80) X10*6/uL Hgb 12.0 L (14.0-18.0) g/dl Hct 35.2 L (42.0-52.0) % MCV 88.2 (80.0-98.0) fL MCH 30.1 (27.0-33.0) pg MCHC 34.1 (31.0-36.0) g/dl RDW 12.5 (11.0-16.0) % Plt Count 149 L (160-400) X10*3/uL MPV 10.7 (9.4-12.4) fL Immature Gran % (Auto) 0.2 (0.0-0.4) % Neut % (Auto) 60.5 (45-73) % Lymph % (Auto) 30.1 (20-40) % [place] % (Auto) 7.2 (2-11) % Eos % (Auto) 1.8 (0-4) % Baso % (Auto) 0.2 (0-2) % Lymph # (Auto) 1.6 (1.2-4.9) X10*3/uL [place] # (Auto) 0.4 (0.1-1.2) X10*3/uL Eos # (Auto) 0.1 (0.0-0.4) X10*3/uL Baso # (Auto) 0.0 (0.0-0.2) X10*3/uL Abs Immat Gran (auto) 0.01 (0.00-0.03) X10*3/uL Absolute Neuts (auto) 3.3 (2.0-8.3) x10*3/uL Absolute Nucleated RBC 0.000 (0.0-0.012) X10*3/uL Nucleated RBC % (auto) 0.0 (0.0-0.2) /100WBC APTT 39.1 H (26.0-36.4) SEC D-Dimer High Sensitivty < 150 NG/ML Sodium 138 (135-145) mmol/L Potassium 3.8 (3.3-5.1) mmol/L Chloride 103 (96-108) mmol/L Carbon Dioxide 23 (22-29) mmol/L Anion Gap 16 (12-20) BUN 16 (9-16) mg/dL Creatinine 0.82 (0.5-1.4) mg/dL Estim Creat Clear Calc 109.1 Estimated GFR > 60 Random Glucose 101 (60-115) mg/dL Calcium 9.5 (8.4-10.2) mg/dL Troponin I High Sens < 2.7 (<3.5-35.0) ng/L Independent Interpretation I performed an independent interpretation of an: EKG and CT Scan (CTA grossly negative for dissection) Interpretation: Sinus heart rate is 60 KS QRS QTC within normal limits no acute ST segment elevation noted. Radiology Impression Discussion of test interpretation with radiology: I have reviewed the radiologist's reading. External Record Review External record reviewed: Inpatient record Chronic Conditions Chronic pain syndrome Discharge Plan Discharge Clinical Impression: Chest pain Patient Disposition: Home, Self-Care Instructions: Chest Pain (DC) Prescriptions: New azithromycin 250 mg tablet See Rx Instructions .ROUTE .COMPLEX Qty: 6 0RF Rx Instructions: take 500 mg today (day 1), then 250 mg for 4 days (days 2-5) ibuprofen 400 mg tablet 400 mg PO Q6H PRN (Reason: pain) Qty: 20 0RF No Action tamsulosin 0.4 mg capsule 0.4 mg PO BEDTIME 90 Days Qty: 90 1RF tizanidine 2 mg tablet 2 mg PO TID PRN (Reason: muscle spasticity) 30 Days Qty: 90 3RF finasteride 5 mg tablet 5 mg PO DAILY 90 Days Qty: 90 1RF naproxen [Naprosyn] 500 mg tablet 500 mg PO BEDTIME PRN (Reason: pain) quetiapine 25 mg tablet 25 mg PO BEDTIME baclofen 20 mg tablet 20 mg PO BEDTIME pregabalin 300 mg capsule 300 mg PO BID carbamazepine 200 mg tablet 200 mg PO BEDTIME metformin 1,000 mg tablet 1,000 mg PO BID (DME) blood sugar diagnostic Strip See Rx Instructions Not Applicable BID Qty: 10 Rx Instructions: As directed (DME) blood-glucose meter Kit See Rx Instructions .ROUTE .MEDSUPPLY Qty: 1 Rx Instructions: As directed duloxetine 60 mg capsule,delayed release(DR/EC) 60 mg PO DAILY bupropion HCl 300 mg tablet extended release 24 hr 300 mg PO QAM prazosin 5 mg capsule 7 mg PO BEDTIME lamotrigine 200 mg tablet 200 mg PO BID duloxetine 30 mg capsule,delayed release(DR/EC) 30 mg PO DAILY (DME) lancets [FreeStyle Lancets] 28 gauge misc See Rx Instructions topical BID Qty: 100 Rx Instructions: As directed Referrals: Alessandra Bates MD [Primary Care Provider] - Natanael Gale MD [Physician] - 06/03/23
[2023-05-30 20:00] VITALS: BP 142/87; PULSE 68; RESP 14; O2SAT 99
== END 2023-05-30 22:37 | disposition home or self-care (01) ==
PROVIDERS: Emergency Provider Emergency Medicine Emergency Medical Services; PCP Internal Medicine
DX: R07.9 Chest pain, unspecified (principal); E11.9 Type 2 diabetes mellitus without complications; Z87.891 Personal history of nicotine dependence; Z79.899 Other long term (current) drug therapy; Z79.84 Long term (current) use of oral hypoglycemic drugs
CPT/HCPCS: 36415; 71045; 71275; 74174; 80048; 81003; 84484; 85025; 85379; 85730; 93005; 96374; 96375; 99284; 99285; J1170; J1885; J2405; Q9967

== ENCOUNTER 2023-06-11 06:35 | Outpatient (REF) | payer OTHER, SELFPAY ==
[2023-06-11 08:31] LABS: Prostate Specific Antigen 0.28 ng/mL (<0.05-4.0)
== END 2023-06-11 06:36 | disposition home or self-care (01) ==
LOC: HO.LAB 06:35
PROVIDERS: PCP Internal Medicine; Visit Provider Nurse Practitioner Family
DX: N40.1 Benign prostatic hyperplasia with lower urinary tract symptoms (principal); N13.8 Other obstructive and reflux uropathy; R39.15 Urgency of urination; N30.10 Interstitial cystitis (chronic) without hematuria; N32.81 Overactive bladder; Z12.5 Encounter for screening for malignant neoplasm of prostate
CPT/HCPCS: 36415; 84153

== ENCOUNTER 2023-06-11 15:13 | Outpatient (AMB) | payer OTHER, SELFPAY ==
--- NOTE | 2023-06-11 15:13 | A.OFFVIS_ITS ---
Intake Intake Visit Reasons: 6m follow up/PSA Intake Note: Patient is present for follow up Tele visit PSA labs Results: PSA: 0.28 Urology Medications: Finasteride, Tamsulosin Blood Thinner: none Tube Sizer Operator Required: No Allergies linagliptin [From TRADJENTA] Allergy (Intermediate, Verified 06/11/23 15:24) RASH Ygqrnji-FXY-RyC Reductase Inhibitor [[id number] REDUCTASE INHIBITOR] Allergy (Intermediate, Verified 06/11/23 15:24) ITCHY,SKIN BREAKDOWN Medication List - Last Reconciled 06/11/23 by WING Yee- baclofen 20 mg PO BEDTIME blood sugar diagnostic As directed blood-glucose meter As directed bupropion HCl 300 mg PO QAM carbamazepine 200 mg PO BEDTIME finasteride 5 mg PO DAILY 90 days ibuprofen 400 mg PO Q6H PRN lamotrigine 200 mg PO BID lancets (FreeStyle Lancets) As directed metformin 1,000 mg PO BID milnacipran (Savella) 50 mg PO BID naproxen (Naprosyn) 500 mg PO BEDTIME PRN prazosin 7 mg PO BEDTIME pregabalin 300 mg PO BID quetiapine 25 mg PO BEDTIME tamsulosin 0.4 mg PO BEDTIME 90 days tizanidine 2 mg PO TID PRN 30 days HPI HPI Comments History of Present Illness Details Linus is a pleasant 53-year-old male patient of Dr. Bates. He has a past medical history of low back pain, peripheral neuropathy, arthritis, PTSD, type 2 diabetes, hypercalcemia, hematuria, and urinary frequency. He is being follow-up on today via telehealth for his history of lower urinary tract symptoms, nocturia, prostatitis, and interstitial cystitis. In discussion with the patient today reports to be doing and feeling well. He reports noting significant improvement in lower urinary tract symptoms since having InterStim placed. He reports compliance with finasteride, prazosin, and Flomax daily. He discusses having InterStim at level 7. He also discusses his longstanding history of failed oral medication therapy as well as bladder Botox. He discusses having had laser prostatectomy in 2019. Recent PSA results reviewed with the patient today. 06/17-- 0.3. When asked he denies urinary urgency, urinary frequency, incontinence, nocturia, hematuria, dysuria, foul smelling urine, changes to urinary stream, flank pain, fever, and or chills. He is happy with her current voiding parameters. Previous office note Failed oral medications including oxybutynin, tolterodine, bed trick Failed Botox injections bladder Interstitial cystitis Biopsy proven November 2021 - Inflamed and congested mucosa 11/14 hydrodistention adverse event with complicated UTI Microgen 12/15 Enterococcus linezolid sensitive - 1 week trial Prostatitis Recurrent Occasional flares Last episode started July 2021 DNA analysis sensitivity to clindamycin and linezolid - Staphylococcus and Corynebacterium Lower urinary tract symptoms Urgency and frequency consistent with diabetic cystopathy - failed from medications oxybuytinin an d tolterodine Underwent laser prostatectomy in 2018 Diabetic cystopathy with urgency - Had recurrent hematuria 12/14 Procedures - 11/14 Cystoscopy with fulguration neova scularity - 02/14 cystoscopy with bladder Botox Imaging 10/16 CT scan TURP defect, no stones Prior medications - oxybutynin 10 mg poor response, myrbetriq [facility] Medical History History of COVID-19 Low back pain Peripheral neuropathy Arthritis Unintentional weight loss PTSD (post-traumatic stress disorder) Hematuria Left lower quadrant pain Urinary frequency Type 2 diabetes mellitus with unspecified complications Other obstructive and reflux uropathy Benign prostatic hyperplasia with lower urinary tract symptoms Urgency incontinence Hypercalcemia Surgical History History of surgery Hx of cystoscopy Hx of cardiac catheterization History of prostate surgery Hx of cystoscopy Hx of cystoscopy H/O colonoscopy Social History Are you a primary day care director to a significant other at home: No Do you presently have visiting nurse or other home services: Yes ([employer]) Alcohol intake: former Patient Tobacco Use Status: Former Tobacco user Quit Date: 2006 Tobacco use type: Cigarette Substance Use Type: Marijuana Review of Systems Const Reports as per HPI Eyes Reports no additional complaints Card Reports as per HPI Reports as per HPI Musc Reports as per HPI Neuro Reports as per HPI Psych Reports as per HPI Endo Reports as per HPI Physical Exam Const General: cooperative Orientation/consciousness: patient oriented x3 Resp Effort & Inspection: able to speak in complete sentences Neuro General: patient oriented x3 Psych Speech and movement: Clear speech present Attitude: cooperative Thought process: Normal thought process present Thought content: Normal thought content present Insight: Fair insight present (Psych) Judgement: Fair judgement present (Psych) Assessment & Plan Assessment & Plan (1) Interstitial cystitis (chronic) without hematuria: Code(s): N30.10 - Interstitial cystitis (chronic) without hematuria (2) Overactive bladder: Code(s): N32.81 - Overactive bladder (3) Urinary frequency: Code(s): R35.0 - Frequency of micturition (4) BPH w urinary obs/LUTS: Code(s): N40.1 - Benign prostatic hyperplasia with lower urinary tract symptoms; N13.8 - Other obstructive and reflux uropathy (5) Urinary urgency: Code(s): R39.15 - Urgency of urination Plan Patient reports to be doing well with lower urinary tract symptoms since having InterStim placed. He denies any bothersome urinary issues or concerns at this time. He reports to be happy with current voiding parameters on 7 mg of prazosin and 0.4 mg of Flomax daily. Discussed recent PSA results with the patient today; as noted above. Stop finasteride Discussed, educated, and stressed the importance of drinking plenty of fluid daily. Follow-up in 6 months with [facility]; or sooner with any issues, concerns, and or questions. Orders: Orders Prostate Specific Antigen Today N13.8 - Other obstructive and reflux uropathy, N40.1 - Benign prostatic hyperplasia with lower urinary tract symptoms Medications: Discontinued finasteride Discontinued Reason: Doctor's Order 5 mg PO DAILY 90 days 90 tabs 1RF Patient Instructions: The patient had an opportunity to ask questions regarding the treatment plan. All questions were answered. Physical exam, labs, and imaging were discussed and reviewed in detail. As well as risks, benefits, and discussion of treatment choices. No major barriers to understanding were identified. The patient expressed understanding and agreement with the above treatment plan. The patient was made aware they should contact our office by phone for worsening of their current condition, the appearance of new symptoms, or with any questions or concerns. Compliance is encouraged with any medications and follow up testing that is ordered. It is a privilege to be allowed the opportunity to participate in? your urological care.? Again, if you have any questions or concerns If you have any questions or concerns please do not hesitate to contact me. The office is [phone]. This note is constructed using voice recognition software. While every effort has been made to ensure accuracy marketing admin errors may have been included. Yours sincerely, WING Yee- Telehealth Telehealth Location of provider rendering services: practice address Location of patient: address on file Patient Identification confirmed using: Name, : Yes Telehealth method: voice only Patient verbally consented to treatment: Yes Patient verbally consented to billing insurance company: Yes Patient informed of any privacy concerns related to visit: Yes Minutes spent on Phone/Video with Pt.: 15 Coding Level of Care Code Tele Est Pt Level 3 (94414) Diagnoses Interstitial cystitis (chronic) without hematuria N30.10 Overactive bladder N32.81 Urinary frequency R35.0 BPH w urinary obs/LUTS N40.1; N13.8 Urinary urgency R39.15 Time Spent (min) 15
== END 2023-06-11 15:40 | disposition home or self-care (01) ==
LOC: HO.HUSH 15:13
PROVIDERS: PCP Internal Medicine; Visit Provider Nurse Practitioner Family
DX: N40.1 Benign prostatic hyperplasia with lower urinary tract symptoms (principal); N30.10 Interstitial cystitis (chronic) without hematuria; N32.81 Overactive bladder; R35.0 Frequency of micturition; N13.8 Other obstructive and reflux uropathy; R39.15 Urgency of urination
CPT/HCPCS: 99442

== ENCOUNTER 2023-06-24 14:43 | Emergency (ER) | payer OTHER, SELFPAY ==
--- NOTE | ~2023-06-24 | CT_ITS ---
EXAMINATION: CT ABDOMEN AND PELVIS WITH CONTRAST CLINICAL INFORMATION: Left lower quadrant pain COMPARISON: Previous CT of the abdomen and pelvis September 2020. CTA 05/30/2023 images not available for comparison at this time. TECHNIQUE: Multidetector volumetric images were obtained from the superior aspect of the liver through the pubic symphysis following administration 85 mL of Omnipaque 350 intravenous contrast. Sagittal and coronal reformatted images were obtained on the technologist's workstation. Oral contrast: Yes This CT examination was performed using dose optimization techniques as appropriate, variously including the following: *Automated exposure control *Adjustment of mA and/or kV according to patient size (this includes techniques or standardized protocols for targeted exams where dose is matched to indication/reason for exam; i.e. extremities or head) *Use of iterative reconstruction technique DLP: 493 mGy-cm FINDINGS: LUNG BASES: The visualized lung bases are unremarkable. LIVER, GALLBLADDER, AND BILIARY TREE: The liver is normal in size, shape, and attenuation. No focal hepatic lesion or biliary ductal dilatation is present. The gallbladder is unremarkable with no evidence of radiopaque gallstones, gallbladder wall thickening, or obvious pericholecystic inflammatory changes. PANCREAS: Unremarkable. SPLEEN: Unremarkable. ADRENAL GLANDS: Unremarkable. KIDNEYS AND URETERS: The kidneys are normal in size, shape, and attenuation. Nonobstructing small right renal stones. Kidneys are otherwise normal.. No perinephric stranding. BLADDER: Unremarkable. TURP defect. GASTROINTESTINAL TRACT:Question mild wall thickening of proximal loops of small bowel. The small and large bowel are otherwise unremarkable. The appendix is slightly dilated measuring 9 to 10 mm in diameter periappendiceal fat is normal surrounding clinically correlate for appendicitis. Unfortunately recent exam from earlier this month not available for comparison at this time. ABDOMINAL WALL: No significant hernia is appreciated. LYMPH NODES: Normal. VASCULAR: Unremarkable. PELVIC VISCERA: The prostate gland does not appear enlarged. TURP defect. OSSEOUS STRUCTURES: Left sacral stimulator. Spacer in the left sacroiliac joint. Stable lucent lesion in the left iliac crest from old exam CT/CT abdomen pelvis w IV con IMPRESSION: Question mild wall thickening of proximal small bowel loops in the left upper quadrant. This may represent enteritis. Slightly prominent appendix. The periappendiceal fat is normal. Clinically correlate for possible early acute appendicitis. Small nonobstructing right renal stones. Fleischner guidelines were followed.
[2023-06-24 15:24] VITALS: BP 147/80; PULSE 79; RESP 20; TEMP 36.8; O2SAT 98; BMI 22.1
--- NOTE | 2023-06-24 15:27 | ED_ITS ---
HPI - Abdominal Pain General Chief Complaint: Nausea/Vomiting/Diarrhea Stated Complaint: LLQ pain/Diverticulitis sent by Jana Time Seen by Provider: 06/24/23 18:44 Source: patient, RN notes reviewed and old records reviewed Mode of arrival: ambulatory Limitations: no limitations History of Present Illness HPI narrative: 53-year-old male with past medical history significant for diabetes, hypertension, hyperlipidemia, remote appendectomy presents for evaluation abdominal pain. patient reports abdominal pain and vomiting with diarrhea since yesterday. He states he vomited 9 times yesterday and 4 times today he reports that he saw some bright red blood in his vomitus he called his PCP today who saw him in the office and fell today had some guarding with rebound tenderness in the left lower quadrant so symptoms they ER to rule out diverticulitis. Patient denies any fevers or chills. No other abdominal surgeries outside of the appendectomy Related Data Home Medications Medication Instructions Recorded Confirmed baclofen 20 mg tablet 20 mg PO BEDTIME 08/31/20 06/11/23 carbamazepine 200 mg tablet 200 mg PO BEDTIME 08/31/20 06/11/23 metformin 1,000 mg tablet 1,000 mg PO BID 08/31/20 06/11/23 pregabalin 300 mg capsule 300 mg PO BID 08/31/20 06/11/23 quetiapine 25 mg tablet 25 mg PO BEDTIME 08/31/20 06/11/23 bupropion HCl 300 mg 24 hr tablet, 300 mg PO QAM 10/14/20 06/11/23 extended release lamotrigine 200 mg tablet 200 mg PO BID 10/14/20 06/11/23 prazosin 5 mg capsule 7 mg PO BEDTIME 10/14/20 06/11/23 blood sugar diagnostic #10 ea 02/15/21 06/11/23 blood-glucose meter #1 ea 02/15/21 06/11/23 naproxen 500 mg tablet (Naprosyn) 500 mg PO BEDTIME PRN pain 10/25/21 06/11/23 lancets 28 gauge (FreeStyle #100 ea 02/20/22 06/11/23 Lancets) milnacipran 50 mg tablet (Savella) 50 mg PO BID 06/11/23 06/11/23 Previous Rx's Medication Instructions Recorded tamsulosin 0.4 mg capsule 0.4 mg PO BEDTIME 90 days #90 caps 05/17/23 tizanidine 2 mg tablet 2 mg PO TID PRN muscle spasticity 05/06/23 30 days #90 tabs ibuprofen 400 mg tablet 400 mg PO Q6H PRN pain #20 tabs 05/30/23 ondansetron 4 mg disintegrating 4 mg PO Q8H PRN nausea and 06/24/23 tablet vomiting #20 tabs Allergies Allergy/AdvReac Type Severity Reaction Status Date / Time linagliptin [From TRADJENTA] Allergy Intermediate RASH Verified 06/11/23 15:24 [id number]-[id number]-[id number] Reductase Allergy Intermediate ITCHY,SKIN Verified 06/11/23 15:24 Inhibitor BREAKDOWN [[id number] REDUCTASE INHIBITOR] Review of Systems Constitutional: Denies chills and Denies fever(s) Cardiovascular: Denies chest pain and Denies dyspnea Respiratory: Denies cough and Denies dyspnea Gastrointestinal: Reports abdominal pain, Reports diarrhea, Reports nausea and Reports vomiting Comments: bright red vomitus Musculoskeletal: Denies back pain Skin/Breast: Denies erythema PMFSH Past Medical History Medical History History of COVID-19 Low back pain Peripheral neuropathy Arthritis Unintentional weight loss PTSD (post-traumatic stress disorder) Hematuria Left lower quadrant pain Urinary frequency Type 2 diabetes mellitus with unspecified complications Other obstructive and reflux uropathy Benign prostatic hyperplasia with lower urinary tract symptoms Urgency incontinence Hypercalcemia Surgical History History of surgery Hx of cystoscopy Hx of cardiac catheterization History of prostate surgery Hx of cystoscopy Hx of cystoscopy H/O colonoscopy Social History Social History Are you a primary child care worker to a significant other at home: No Do you presently have visiting nurse or other home services: Yes ([employer]) Alcohol intake: former Patient Tobacco Use Status: Former Tobacco user Quit Date: 2006 Tobacco use type: Cigarette Smoked in Last 30 Days: No Use of substances other than those prescribed or required for medical reasons: Yes Substance Use Type: Marijuana Advance Directives: No Advance Directives Information Provided: No Physical Exam ED Vital Signs: Vital Signs - 24 hr 06/24/23 15:24 06/24/23 18:34 06/24/23 19:25 Temperature 98.2 F 98.2 F Pulse Rate 79 67 69 Respiratory Rate 20 17 16 Blood Pressure 147/80 H 123/81 132/79 Pulse Oximetry 98 100 99 Oxygen Delivery Method Room Air Room Air Room Air 06/24/23 21:04 Temperature 98.1 F Pulse Rate 64 Respiratory Rate 15 Blood Pressure 133/75 Pulse Oximetry 98 Oxygen Delivery Method Room Air BMI result Body Mass Index 22.1 Const General: healthy appearing, comfortable, no acute distress, alert and awake Nutritional Appearance: well nourished Orientation/consciousness: patient oriented x3 HENMT Head: Yes normocephalic and Yes atraumatic Eyes Eyelids: Yes eyelids normal Conjunctivae: conjunctivae normal Sclerae: sclerae normal Corneas: corneas normal Pupils: Equal, round and reactive pupils present EOM: EOMs intact bilaterally Neck Neck: Yes full ROM Resp Effort & Inspection: normal respiratory effort, able to speak in complete sentences and not labored GI Other: patient is tender with guarding to even light palpation left lower quadrant. There is some rebound tenderness to the left lower quadrant when palpating the right lower quadrant. Inspection: No distended Palpation (GI): Soft to palpation, not firm, Tenderness to palpation present (GI), Guarding due to palpation present (GI) and not rigid Skin General skin exam: elasticity normal Neuro General: patient oriented x3 Cranial nerves: Yes Equal, round and reactive pupils present and Yes Bilaterally intact EOM present Cognition (Neuro): normal cognition Extrem Other: Moving all extremities well without any obvious deformities Course Course Course Narrative: This is an RME: Additional HPI, ROS, PE not included below will be deferred to primary provider. This is a 17-vjce-dmm-male, with a hx of DMII, PTSD, BPH, and hypercalcemia, presenting to the emergency department with a complaint of body aches, diarrhea, nausea, vomiting and lower abdominal pain since yesterday. VSS Plan: Labs, viral swabs Reevaluation(s) Reevaluation #1: patient's CT scan concerning for enteritis. The radiologist mentions that the patient may have early acute appendicitis, however, I confirmed with the patient that he has in fact had an appendectomy and he has a scar in the right lower quadrant prove this. I discussed the enteritis the patient as well as the radiologist concern for appendicitis with the patient. Given that he has had an appendectomy discharge the patient with Zofran for his enteritis Time: 22:40 Medical Decision Making Medical Decision Making [facility] Narrative: A 53-year-old male presents for evaluation of abdominal pain, vomiting, diarrhea. He reports seeing red in his vomit. His hemoglobin hematocrit are slightly below normal however actually increased when compared to his recent baseline. He has no significant electrolyte abnormalities. His BUN to creatinine ratio was not indicative of acute GI bleed. However given his significant left lower quadrant tenderness with guarding and rebound will get a CT scan of the abdomen pelvis. patient is status post appendectomy. He has continued to have bowel movements so obstruction is less likely as well. Differential Diagnosis Differential Diagnoses: The differential diagnosis associated with the presentation includes Abdominal pain Diverticulitis Bowel obstruction Upper GI bleed Lower GI bleed peptic ulcer disease Lab Data [facility] Lab Attestation statement: I reviewed the patient's lab results. Patient has a very mild anemia but actually improvement compared to his recent baseline. There are no electrolyte abnormalities. Normal renal function, normal liver function. 06/24/23 16:34 06/24/23 16:34 Labs: Lab Results 06/24/23 Range/Units 16:34 WBC 6.0 (4.8-10.8) X10*3/uL RBC 4.25 L (4.60-5.80) X10*6/uL Hgb 13.0 L (14.0-18.0) g/dl Hct 37.7 L (42.0-52.0) % MCV 88.7 (80.0-98.0) fL MCH 30.6 (27.0-33.0) pg MCHC 34.5 (31.0-36.0) g/dl RDW 12.3 (11.0-16.0) % Plt Count 178 (160-400) X10*3/uL MPV 10.1 (9.4-12.4) fL Immature Gran % (Auto) 0.3 (0.0-0.4) % Neut % (Auto) 74.4 H (45-73) % Lymph % (Auto) 18.9 L (20-40) % Sutter % (Auto) 5.5 (2-11) % Eos % (Auto) 0.7 (0-4) % Baso % (Auto) 0.2 (0-2) % Lymph # (Auto) 1.1 L (1.2-4.9) X10*3/uL Sutter # (Auto) 0.3 (0.1-1.2) X10*3/uL Eos # (Auto) 0.0 (0.0-0.4) X10*3/uL Baso # (Auto) 0.0 (0.0-0.2) X10*3/uL Abs Immat Gran (auto) 0.02 (0.00-0.03) X10*3/uL Absolute Neuts (auto) 4.4 (2.0-8.3) x10*3/uL Absolute Nucleated RBC 0.000 (0.0-0.012) X10*3/uL Nucleated RBC % (auto) 0.0 (0.0-0.2) /100WBC Sodium 140 (135-145) mmol/L Potassium 4.3 (3.3-5.1) mmol/L Chloride 104 (96-108) mmol/L Carbon Dioxide 24 (22-29) mmol/L Anion Gap 16 (12-20) BUN 15 (9-16) mg/dL Creatinine 0.85 (0.5-1.4) mg/dL Estim Creat Clear Calc 103.8 Estimated GFR > 60 Random Glucose 132 H (60-115) mg/dL Calcium 9.7 (8.4-10.2) mg/dL Magnesium 2.0 (1.6-2.6) mg/dL Total Bilirubin 0.2 (0.0-1.0) mg/dL Direct Bilirubin < 0.2 (0.0-0.5) mg/dL AST 13 (5-37) U/L ALT 12 (0-40) U/L Alkaline Phosphatase 93 (39-117) U/L Total Protein 7.0 (6.5-8.0) g/dL Albumin 4.7 (3.5-5.0) g/dL Lipase 15 (8-78) U/L Influenza Type A (PCR) NEGATIVE (Negative) Influenza Type B (PCR) NEGATIVE (Negative) RSV RNA Qual (PCR) NEGATIVE (Negative) SARS-CoV-2 RNA (RT-PCR) NEGATIVE (Negative) Independent Interpretation I performed an independent interpretation of an: CT Scan ( inflammation of small bowel consistent with enteritis) Radiology Impression Discussion of test interpretation with radiology: I have reviewed the radiologist's reading. ( question mild wall thickening of proximal small bowel loops in the left upper quadrant. This may represent enteritis. Slightly prominent appendix) Medications Administered Discontinued Medications Generic Name Dose Route Start Last Admin Trade Name Freq PRN Reason Stop Dose Admin Sodium Chloride 1,000 mls @ 999 mls/hr 06/24/23 19:00 06/24/23 20:15 Ns IV 06/24/23 20:00 Infused .Q1H1M ROLF Infusion Iohexol 100 ml 06/24/23 20:09 06/24/23 20:09 Iohexol 350 Mg/Ml 100 Ml Infus..Btl IV 06/24/23 20:10 85 ml ONCE ONE Administration Morphine Sulfate 4 mg 06/24/23 18:55 06/24/23 19:22 Morphine Sulfate 4 Mg/Ml Cartridge IVPUSH 06/24/23 18:56 4 mg ONCE ONE Administration Protocol Morphine Sulfate 4 mg 06/24/23 21:16 06/24/23 21:29 Morphine Sulfate 4 Mg/Ml Cartridge IVPUSH 06/24/23 21:17 4 mg ONCE ONE Administration Protocol Ondansetron HCl 4 mg 06/24/23 18:55 06/24/23 19:22 Ondansetron Hcl 4 Mg/2 Ml Vial IVPUSH 06/24/23 18:56 4 mg ONCE ONE Administration Discharge Plan Discharge Clinical Impression: Enteritis Patient Disposition: Home, Self-Care Instructions: Enteritis (ED) Additional Instructions: your CT scan showed inflammation of your small intestine that is consistent with enteritis. This is almost exclusively caused by a stomach virus use Tylenol as needed for pain. Use Zofran as needed for nausea or vomiting. You may use [id number] Maalox or Prilosec OTC Prescriptions: New ondansetron 4 mg tablet,disintegrating 4 mg PO Q8H PRN (Reason: nausea and vomiting) Qty: 20 0RF No Action tamsulosin 0.4 mg capsule 0.4 mg PO BEDTIME 90 Days Qty: 90 1RF tizanidine 2 mg tablet 2 mg PO TID PRN (Reason: muscle spasticity) 30 Days Qty: 90 3RF naproxen [Naprosyn] 500 mg tablet 500 mg PO BEDTIME PRN (Reason: pain) ibuprofen 400 mg tablet 400 mg PO Q6H PRN (Reason: pain) Qty: 20 0RF quetiapine 25 mg tablet 25 mg PO BEDTIME baclofen 20 mg tablet 20 mg PO BEDTIME pregabalin 300 mg capsule 300 mg PO BID carbamazepine 200 mg tablet 200 mg PO BEDTIME metformin 1,000 mg tablet 1,000 mg PO BID (DME) blood sugar diagnostic Strip See Rx Instructions Not Applicable BID Qty: 10 Rx Instructions: As directed (DME) blood-glucose meter Kit See Rx Instructions .ROUTE .MEDSUPPLY Qty: 1 Rx Instructions: As directed bupropion HCl 300 mg tablet extended release 24 hr 300 mg PO QAM prazosin 5 mg capsule 7 mg PO BEDTIME lamotrigine 200 mg tablet 200 mg PO BID (DME) lancets [FreeStyle Lancets] 28 gauge misc See Rx Instructions topical BID Qty: 100 Rx Instructions: As directed Savella 50 mg tablet 50 mg PO BID
[2023-06-24 16:42] LABS: MANUAL DIFF FLAG NO
[2023-06-24 16:43] LABS: Basophils Percent Auto 0.2 % (0-2); Eosinophils Percent Auto 0.7 % (0-4); Hematocrit 37.7 % (42.0-52.0); Imm Gran Abs Auto 0.02 X10*3/uL (0.00-0.03); Imm Gran Pct Auto 0.3 % (0.0-0.4); Lymphocytes Absolute Auto 1.1 X10*3/uL (1.2-4.9); Lymphocytes Percent Auto 18.9 % (20-40); Mean Corpuscular HGB Conc 34.5 g/dl (31.0-36.0); Mean Corpuscular Hemoglobin 30.6 pg (27.0-33.0); Mean Corpuscular Volume 88.7 fL (80.0-98.0); Mean Platelet Volume 10.1 fL (9.4-12.4); Monocytes Absolute Auto 0.3 X10*3/uL (0.1-1.2); Monocytes Percent Auto 5.5 % (2-11); Neutrophils Absolute Auto 4.4 x10*3/uL (2.0-8.3); Neutrophils Percent Auto 74.4 % (45-73); Platelet Count 178 X10*3/uL (160-400); Red Blood Count 4.25 X10*6/uL (4.60-5.80); Red Cell Distribution Width 12.3 % (11.0-16.0)
[2023-06-24 16:59] LABS: Alanine Aminotransferase 12 U/L (0-40); Albumin Level 4.7 g/dL (3.5-5.0); Alkaline Phosphatase 93 U/L (39-117); Anion Gap 16 (12-20); Aspartate Amino Transferase 13 U/L (5-37); Bilirubin Direct < 0.2 mg/dL (0.0-0.5); Bilirubin Total 0.2 mg/dL (0.0-1.0); Blood Urea Nitrogen 15 mg/dL (9-16); Calcium 9.7 mg/dL (8.4-10.2); Carbon Dioxide 24 mmol/L (22-29); Chloride 104 mmol/L (96-108); Creatinine Clr Calc Pharmacy 103.8; Estimated Glomerular Filt Rate > 60; Glucose Random 132 mg/dL (60-115); Lipase 15 U/L (8-78); Potassium 4.3 mmol/L (3.3-5.1); Sodium 140 mmol/L (135-145)
[2023-06-24 17:29] LABS: Influenza A PCR NEGATIVE (Negative); Influenza B PCR NEGATIVE (Negative); Resp Syncy Virus RNA Qual PCR NEGATIVE (Negative); SARS COV2 PCR INHOUSE NEGATIVE (Negative)
[2023-06-24 18:34] VITALS: BP 123/81; PULSE 67; RESP 17; TEMP 36.8; O2SAT 100
[2023-06-24] MEDS: ondansetron HCL 4 MG/2 ML VIAL IVPUSH (19:22)
[2023-06-24] MEDS: Morphine Sulfate 4 MG/ML CARTRIDGE IVPUSH ×2 (19:22→21:29)
[2023-06-24 19:25] VITALS: BP 132/79; PULSE 69; RESP 16; O2SAT 99
[2023-06-24] MEDS: 0.9 % Sodium Chloride 1,000 ML 999 ML IV (19:25)
[2023-06-24] MEDS: iohexoL 350 MG/ML 100 ML INFUS..BTL IV (20:09)
--- NOTE | 2023-06-24 20:15 | PC.NURSE ---
pt returned from ct scan. ivf infused. pt reports some improvement in pain. head of bed elevated pt reports comfortable denies questions/concerns at this time. nsr on monitor 70 bpm. call hoover within reach.
--- NOTE | 2023-06-24 21:03 | PC.NURSE ---
upon entering room pt reports pain worsened; 9/10 at this time. Matthieu MCNULTY aware.
[2023-06-24 21:04] VITALS: BP 133/75; PULSE 64; RESP 15; TEMP 36.7; O2SAT 98
[2023-06-24 22:54] VITALS: BP 130/77; PULSE 61; RESP 16; O2SAT 99
== END 2023-06-24 22:54 | disposition home or self-care (01) ==
PROVIDERS: Physician Assistant Medical; Emergency Provider Emergency Medicine; PCP Internal Medicine
DX: K52.9 Noninfective gastroenteritis and colitis, unspecified (principal); K57.32 Diverticulitis of large intestine without perforation or abscess without bleeding; R10.32 Left lower quadrant pain; R11.2 Nausea with vomiting, unspecified; Z20.822 Contact with and (suspected) exposure to COVID-19; Z20.828 Contact with and (suspected) exposure to other viral communicable diseases; Z87.891 Personal history of nicotine dependence; Z79.899 Other long term (current) drug therapy
CPT/HCPCS: 0241U; 74177; 80048; 80076; 83690; 83735; 85025; 96361; 96374; 96375; 96376; 99284; J2270; J2405; Q9967

== ENCOUNTER 2023-07-01 06:34 | Outpatient (REF) | payer OTHER, SELFPAY ==
[2023-07-01 07:49] LABS: Estimated Average Glucose 128 mg/dL; Hemoglobin A1c % 6.1 % (<6.0)
[2023-07-01 08:40] LABS: Alanine Aminotransferase 9 U/L (0-40); Albumin Level 4.4 g/dL (3.5-5.0); Alkaline Phosphatase 98 U/L (39-117); Anion Gap 15 (12-20); Aspartate Amino Transferase 10 U/L (5-37); Bilirubin Total 0.3 mg/dL (0.0-1.0); Blood Urea Nitrogen 10 mg/dL (9-16); Calcium 9.5 mg/dL (8.4-10.2); Carbon Dioxide 26 mmol/L (22-29); Chloride 103 mmol/L (96-108); Estimated Glomerular Filt Rate > 60; Glucose Random 131 mg/dL (60-115); Potassium 4.2 mmol/L (3.3-5.1); Sodium 140 mmol/L (135-145); Total Protein 6.6 g/dL (6.5-8.0)
== END 2023-07-01 06:35 | disposition home or self-care (01) ==
LOC: HO.LAB 06:34
PROVIDERS: PCP Internal Medicine; Visit Provider Internal Medicine
DX: E11.9 Type 2 diabetes mellitus without complications (principal); N52.1 Erectile dysfunction due to diseases classified elsewhere
CPT/HCPCS: 36415; 80053; 83036

== ENCOUNTER 2023-07-02 13:12 | Inpatient (IN) | payer OTHER, SELFPAY ==
--- NOTE | ~2023-07-02 | CT_ITS ---
EXAMINATION: CT abdomen pelvis w IV con CLINICAL INFORMATION: Reason for Exam LLQ pain COMPARISON: No prior CT available for comparison. TECHNIQUE: Multidetector volumetric imaging was performed from the superior aspect of the liver through the pubic symphysis 100 mL of Omnipaque 350 injected Sagittal and coronal reformatted images were obtained on the technologist's workstation. This CT examination was performed using dose optimization techniques as appropriate, variously including the following: *Automated exposure control *Adjustment of mA and/or kV according to patient size (this includes techniques or standardized protocols for targeted exams where dose is matched to indication/reason for exam; i.e. extremities or head) *Use of iterative reconstruction technique DLP: 457 mGy-cm FINDINGS: LOWER THORAX: Included lung bases are clear. HEPATOBILIARY: No focal hepatic lesions. No biliary ductal dilatation. GALLBLADDER: Gallbladder unremarkable. SPLEEN: Spleen is normal in size. PANCREAS: No focal mass or ductal dilatation. STOMACH AND GASTROINTESTINAL TRACT: Stomach is grossly unremarkable. Mildly dilated small bowel loops in the left upper quadrant measuring up to 3.2 cm, some of the bowel loops have thickened wall, this is nonspecific CT findings, no definite high degree obstruction or perforation is present. This could be sequela of ileitis, infection, inflammatory, Crohn's among other entities. The distal loops of the small bowel are normal in diameter. No CT evidence of appendicitis. ADRENALS: No adrenal nodules. KIDNEYS/URETERS: There is nonobstructing stones in the right kidney the larger one measures 4 mm. No hydronephrosis. No perinephric fat stranding. URINARY BLADDER: Partially decompressed. PELVIC VISCERA: Unremarkable PERITONEUM: No free air or fluid. LYMPH NODES: No lymphadenopathy. VASCULAR:Abdominal aorta normal in size, no aneurysm found. BONES, ABDOMINAL WALL AND SOFT TISSUES: Left iliac bone radiolucency 2.2 cm well-defined sclerotic borders suggest most likely nonaggressive bone lesion such as bone cyst, and chondroma among others. There are age-related degenerative changes of the lumbar spine. There is an electronic device embedded in the subcutaneous fat of the left buttock the tip in the pelvis. Sclerotic density in the vertebral body of L3 probably bone islands. CT/CT abdomen pelvis w IV con IMPRESSION: * Mildly dilated small bowel loops in the left upper quadrant, some of the bowel loops have thickened wall, this is nonspecific CT findings, no definite high degree obstruction or perforation is present. This could be sequela of ileitis, infection, inflammatory, Crohn's among other entities. Please correlate clinically, follow-up nonemergent barium study upper GI and small bowel series could be utilized for further investigation. * Nonobstructing stones in the right kidney. No hydronephrosis. 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 Other noncritical findings include electronic device embedded in the subcutaneous fat of the left buttock the tip in the pelvis.
--- NOTE | ~2023-07-02 | FL_ITS ---
EXAMINATION: FL SMALL BOWEL SERIES CLINICAL INFORMATION: Left lower quadrant abdominal pain, nausea/vomiting COMPARISON: CT scan 07/02/2023 TECHNIQUE: Following a loom tuner image of the abdomen, contrast was administered orally, and interval abdominal radiographs were performed to assess for contrast progression through the small bowel. FINDINGS: Rivet Spinner image of the abdomen demonstrates a normal bowel gas pattern. A sacral spinal stimulator is present There is normal transit time of contrast material through the small bowel, with contrast present in the colon by 3 hours. Small bowel loops are of normal caliber throughout the abdomen and pelvis. The jejunal and ileal fold patterns are normal, without evidence of abnormal thickening. No fixed regions of luminal narrowing are seen to suggest stricturing. The terminal ileum is not well seen due to the dilution of the Gastrografin FL/FL small bowel follow through IMPRESSION: Normal small bowel series. No evidence of obstruction.
[2023-07-02 13:17] VITALS: BP 137/74; PULSE 72; O2SAT 100
[2023-07-02 14:12] VITALS: BP 117/65; PULSE 59; RESP 18; TEMP 37; O2SAT 100; BMI 21.8
[2023-07-02 14:22] LABS: MANUAL DIFF FLAG NO
[2023-07-02 14:23] LABS: Basophils Percent Auto 0.1 % (0-2); Eosinophils Absolute Auto 0.1 X10*3/uL (0.0-0.4); Eosinophils Percent Auto 0.6 % (0-4); Hematocrit 37.3 % (42.0-52.0); Imm Gran Abs Auto 0.03 X10*3/uL (0.00-0.03); Imm Gran Pct Auto 0.4 % (0.0-0.4); Lymphocytes Absolute Auto 1.3 X10*3/uL (1.2-4.9); Lymphocytes Percent Auto 15.9 % (20-40); Mean Corpuscular HGB Conc 34.9 g/dl (31.0-36.0); Mean Corpuscular Hemoglobin 30.4 pg (27.0-33.0); Mean Corpuscular Volume 87.1 fL (80.0-98.0); Mean Platelet Volume 10.5 fL (9.4-12.4); Monocytes Absolute Auto 0.5 X10*3/uL (0.1-1.2); Monocytes Percent Auto 6.1 % (2-11); Neutrophils Absolute Auto 6.1 x10*3/uL (2.0-8.3); Neutrophils Percent Auto 76.9 % (45-73); Platelet Count 177 X10*3/uL (160-400); Red Blood Count 4.28 X10*6/uL (4.60-5.80); Red Cell Distribution Width 11.9 % (11.0-16.0); White Blood Count 7.9 X10*3/uL (4.8-10.8)
[2023-07-02 14:43] LABS: Alanine Aminotransferase 11 U/L (0-40); Albumin Level 4.5 g/dL (3.5-5.0); Alkaline Phosphatase 99 U/L (39-117); Anion Gap 18 (12-20); Aspartate Amino Transferase 13 U/L (5-37); Bilirubin Total 0.4 mg/dL (0.0-1.0); Blood Urea Nitrogen 13 mg/dL (9-16); Calcium 9.7 mg/dL (8.4-10.2); Carbon Dioxide 22 mmol/L (22-29); Chloride 102 mmol/L (96-108); Creatinine Clr Calc Pharmacy 103.8; Estimated Glomerular Filt Rate > 60; Glucose Random 118 mg/dL (60-115); Magnesium 1.8 mg/dL (1.6-2.6); Sodium 138 mmol/L (135-145); Total Protein 6.8 g/dL (6.5-8.0)
[2023-07-02 14:59] LABS: Influenza A PCR NEGATIVE (Negative); Influenza B PCR NEGATIVE (Negative); Resp Syncy Virus RNA Qual PCR NEGATIVE (Negative); SARS COV2 PCR INHOUSE NEGATIVE (Negative)
[2023-07-02 15:44] LABS: Appearance Urine Clear; Color Urine Yellow; Glucose Urine UA Negative (Negative); Leukocyte Esterase Urine Trace (Negative); Nitrite Urine Negative (Negative); PH 8.5 (5.0-9.0); UMIC TRIGGER UACC YES; Urine Blood Negative (Negative); Urine Ketones >=160 mg/dL (Negative); Urine Protein Negative (Neg-Trace)
[2023-07-02 15:46] LABS: Bacteria Urine None Seen (None Seen); Hyaline Casts Urine 0-2 /LPF (0-2); RBC Urine 0-2 /HPF (0-2); Squamous Epithelial Cell Urine 0-2 /HPF (0-2); WBC Urine 0-5 /HPF (0-5)
[2023-07-02 15:48] LABS: Amphetamine Screen Urine Not Detected (Not Detect); Barbiturates, Urine Not Detected (Not Detect); Benzodiazepines Screen Urine Not Detected (Not Detect); Cannabinoid Screen Urine POSITIVE (Not Detect); Cocaine Screen Urine Not Detected (Not Detect); Fentanyl, urine POSITIVE (Not Detect); Opiate Screen Urine Not Detected (Not Detect); Phencyclidine Screen Urine Not Detected (Not Detect)
[2023-07-02] MEDS: iohexoL 350 MG/ML 100 ML INFUS..BTL IV (16:37)
--- NOTE | 2023-07-02 16:42 | ED_ITS ---
HPI - General Adult General Chief complaint: Abdominal Pain Stated complaint: ABD PAIN W/NAUSEA/VOMITING X1 WEEK, PER EMS Time Seen by Provider: 07/02/23 16:05 Source: patient, RN notes reviewed and old records reviewed Mode of arrival: ambulatory Limitations: no limitations History of Present Illness HPI narrative: 53-year-old male with past medical history significant for diabetes, fibromyalgia presents for evaluation of left lower quadrant abdominal pain Patient was seen here 9 days ago for similar complaint the same area. He states that he has had continued abdominal pain, nausea, vomiting ever since He reports following up with his primary doctor 4 days ago and was told ?if the pain does not improve go back to the ER. ? Complains of continued 10 of 10 left lower quadrant abdominal pain Denies any black or bloody stool, diarrhea. He states persistent nausea and vomiting and that he has only been able to tolerate ?water over the last week. ? He had a CT scan on June 24, 2023 that showed questionable dilated bowel loops concerning for enteritis and a questionable caliber sized appendix but no periappendiceal fat stranding. The patient denies any right lower abdominal pain Related Data Home Medications Medication Instructions Recorded Confirmed baclofen 20 mg tablet 20 mg PO BEDTIME 08/31/20 06/11/23 carbamazepine 200 mg tablet 200 mg PO BEDTIME 08/31/20 06/11/23 metformin 1,000 mg tablet 1,000 mg PO BID 08/31/20 06/11/23 pregabalin 300 mg capsule 300 mg PO BID 08/31/20 06/11/23 quetiapine 25 mg tablet 25 mg PO BEDTIME 08/31/20 06/11/23 bupropion HCl 300 mg 24 hr tablet, 300 mg PO QAM 10/14/20 06/11/23 extended release lamotrigine 200 mg tablet 200 mg PO BID 10/14/20 06/11/23 prazosin 5 mg capsule 7 mg PO BEDTIME 10/14/20 06/11/23 blood sugar diagnostic #10 ea 02/15/21 06/11/23 blood-glucose meter #1 ea 02/15/21 06/11/23 naproxen 500 mg tablet (Naprosyn) 500 mg PO BEDTIME PRN pain 10/25/21 06/11/23 lancets 28 gauge (FreeStyle #100 ea 02/20/22 06/11/23 Lancets) milnacipran 50 mg tablet (Savella) 50 mg PO BID 06/11/23 06/11/23 Previous Rx's Medication Instructions Recorded tamsulosin 0.4 mg capsule 0.4 mg PO BEDTIME 90 days #90 caps 01/09/23 tizanidine 2 mg tablet 2 mg PO TID PRN muscle spasticity 05/06/23 30 days #90 tabs ibuprofen 400 mg tablet 400 mg PO Q6H PRN pain #20 tabs 05/30/23 ondansetron 4 mg disintegrating 4 mg PO Q8H PRN nausea and 06/24/23 tablet vomiting #20 tabs Allergies Allergy/AdvReac Type Severity Reaction Status Date / Time linagliptin [From TRADJENTA] Allergy Intermediate RASH Verified 06/11/23 15:24 Redslht-BMG-SuJ Reductase Allergy Intermediate ITCHY,SKIN Verified 06/11/23 15:24 Inhibitor BREAKDOWN [[id number] REDUCTASE INHIBITOR] Review of Systems 2 Constitutional: Constitutional: Denies chills, Denies fever(s), Reports malaise and Reports poor appetite Cardiovascular: Cardiovascular: Denies chest pain and Denies dyspnea Respiratory: Respiratory: Denies cough and Denies dyspnea Gastrointestinal: Gastrointestinal: Reports abdominal pain, Denies melena, Denies hematochezia, Reports nausea and Reports vomiting Musculoskeletal: Musculoskeletal: Denies back pain Integumentary/Breasts: Skin/Breast: Denies rash PMFSH Past Medical History Medical History History of COVID-19 Low back pain Peripheral neuropathy Arthritis Unintentional weight loss PTSD (post-traumatic stress disorder) Hematuria Left lower quadrant pain Urinary frequency Type 2 diabetes mellitus with unspecified complications Other obstructive and reflux uropathy Benign prostatic hyperplasia with lower urinary tract symptoms Urgency incontinence Hypercalcemia Surgical History History of surgery Hx of cystoscopy Hx of cardiac catheterization History of prostate surgery Hx of cystoscopy Hx of cystoscopy H/O colonoscopy Social History Social History Are you a primary career technical supervisor to a significant other at home: No 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) Alcohol intake: former Patient Tobacco Use Status: Former Tobacco user Quit Date: 2006 Tobacco use type: Cigarette Substance Use Type: Marijuana Advance Directives: No Advance Directives Information Provided: No Physical Exam ED Vital Signs: Vital Signs - 24 hr 07/02/23 14:12 07/02/23 19:50 Temperature 98.6 F 98.4 F Pulse Rate 59 69 Respiratory Rate 18 20 Blood Pressure 117/65 113/79 Pulse Oximetry 100 99 Oxygen Delivery Method Room Air Room Air BMI result Body Mass Index 21.8 Const General: healthy appearing, comfortable, no acute distress, alert and awake Nutritional Appearance: well nourished Orientation/consciousness: patient oriented x3 HENMT Head: Yes normocephalic and Yes atraumatic Eyes Eyelids: Yes eyelids normal Conjunctivae: conjunctivae normal Sclerae: sclerae normal Corneas: corneas normal Pupils: Equal, round and reactive pupils present EOM: EOMs intact bilaterally Neck Neck: Yes full ROM Resp Effort & Inspection: normal respiratory effort, able to speak in complete sentences, no audible wheezes and not labored GI Other: Patient's abdomen remained soft, nondistended. He is guarding to light palpation left lower quadrant only. No rebound tenderness Inspection: No distended Palpation (GI): Soft to palpation, not firm, Tenderness to palpation present (GI) in the LLQ; not in the RLQ, not in the LUQ and not in the RUQ, Guarding due to palpation present (GI) in the LLQ and not rigid Auscultation: normoactive bowel sounds Skin General skin exam: elasticity normal Neuro General: patient oriented x3 Cranial nerves: Yes Equal, round and reactive pupils present and Yes Bilaterally intact EOM present Cognition (Neuro): normal cognition Extrem Other: Moving all extremities well without any obvious deformities Course Reevaluation(s) Reevaluation #1: Patient's CT scan shows continued dilated small bowel loops. Given this I discussed with GI, Dr. Burns who recommends a small-bowel follow-through with Gastrografin as well as fecal calprotectin and she agrees with stool studies the patient has not yet provided a sample for. Time: 19:51 Reevaluation #2: Unfortunately, we cannot get the small-bowel follow-through with Gastrografin tonight her Radiology as a radiologist the present for this. I discussed with hospitalist, Dr Pearson who will admit the patient. Time: 20:06 Medications Administered Discontinued Medications Generic Name Dose Route Start Last Admin Trade Name Cary PRN Reason Stop Dose Admin Sodium Chloride 1,000 mls @ 999 mls/hr 07/02/23 16:15 07/02/23 18:05 Ns IV 07/02/23 17:15 Infused .Q1H1M ROLF Infusion Iohexol 100 ml 07/02/23 16:36 07/02/23 16:37 Iohexol 350 Mg/Ml 100 Ml Infus..Btl IV 07/02/23 16:37 85 ml ONCE ONE Administration Metoclopramide HCl 10 mg 07/02/23 16:14 07/02/23 17:08 Metoclopramide Hcl 10 Mg/2 Ml Vial IVPUSH 07/02/23 16:15 10 mg ONCE ONE Administration Morphine Sulfate 4 mg 07/02/23 16:14 07/02/23 17:08 Morphine Sulfate 4 Mg/Ml Cartridge IVPUSH 07/02/23 16:15 4 mg ONCE ONE Administration Protocol Medical Decision Making Medical Decision Making [facility] Narrative: 53-year-old male presents for evaluation of continued abdominal pain and vomiting for the last 10 days. I reviewed his workup from his last visit and I was actually part at saw the patient. Given that he has continued severe abdominal pain with guarding to even light palpation will repeat CT scan the abdomen pelvis this time with oral contrast to better evaluate. He continues to have bowel movements, however low suspicion for small-bowel obstruction. He has no right lower quadrant tenderness or rebound tenderness to suggest appendicitis. The patient is a diabetic, so ischemic bowel could be on differential but I feel this is less likely. I added on a lactic acid Differential Diagnosis Differential Diagnoses: The differential diagnosis associated with the presentation includes Abdominal pain Diabetic gastroparesis Ischemic bowel Acute appendicitis Pancreatitis Bowel obstruction Enteritis IBD Lab Data [facility] Lab Attestation statement: I reviewed the patient's lab results. No leukocytosis with a white count of 7.9 by does have a slight left shift. The patient has a baseline normocytic anemia. Normal platelet count. No significant electrolyte abnormalities. No evidence of renal dysfunction with normal BUN and creatinine. LFTs are normal limits. 07/02/23 14:14 07/02/23 14:14 Labs: Lab Results 07/02/23 07/02/23 Range/Units 14:14 15:32 WBC 7.9 (4.8-10.8) X10*3/uL RBC 4.28 L (4.60-5.80) X10*6/uL Hgb 13.0 L (14.0-18.0) g/dl Hct 37.3 L (42.0-52.0) % MCV 87.1 (80.0-98.0) fL MCH 30.4 (27.0-33.0) pg MCHC 34.9 (31.0-36.0) g/dl RDW 11.9 (11.0-16.0) % Plt Count 177 (160-400) X10*3/uL MPV 10.5 (9.4-12.4) fL Immature Gran % (Auto) 0.4 (0.0-0.4) % Neut % (Auto) 76.9 H (45-73) % Lymph % (Auto) 15.9 L (20-40) % [place] % (Auto) 6.1 (2-11) % Eos % (Auto) 0.6 (0-4) % Baso % (Auto) 0.1 (0-2) % Lymph # (Auto) 1.3 (1.2-4.9) X10*3/uL [place] # (Auto) 0.5 (0.1-1.2) X10*3/uL Eos # (Auto) 0.1 (0.0-0.4) X10*3/uL Baso # (Auto) 0.0 (0.0-0.2) X10*3/uL Abs Immat Gran (auto) 0.03 (0.00-0.03) X10*3/uL Absolute Neuts (auto) 6.1 (2.0-8.3) x10*3/uL Absolute Nucleated RBC 0.000 (0.0-0.012) X10*3/uL Nucleated RBC % (auto) 0.0 (0.0-0.2) /100WBC Sodium 138 (135-145) mmol/L Potassium 4.0 (3.3-5.1) mmol/L Chloride 102 (96-108) mmol/L Carbon Dioxide 22 (22-29) mmol/L Anion Gap 18 (12-20) BUN 13 (9-16) mg/dL Creatinine 0.84 (0.5-1.4) mg/dL Estim Creat Clear Calc 103.8 Estimated GFR > 60 Random Glucose 118 H (60-115) mg/dL Calcium 9.7 (8.4-10.2) mg/dL Magnesium 1.8 (1.6-2.6) mg/dL Total Bilirubin 0.4 (0.0-1.0) mg/dL AST 13 (5-37) U/L ALT 11 (0-40) U/L Alkaline Phosphatase 99 (39-117) U/L Total Protein 6.8 (6.5-8.0) g/dL Albumin 4.5 (3.5-5.0) g/dL Lipase 15 (8-78) U/L Urine Color Yellow Urine Appearance Clear Urine pH 8.5 (5.0-9.0) Ur Specific [place] 1.020 (1.005-1.025) Urine Protein Negative (Neg-Trace) mg/dL Urine Glucose (UA) Negative (Negative) mg/dL Urine Ketones >=160 (Negative) mg/dL Urine Blood Negative (Negative) Urine Nitrite Negative (Negative) Ur Leukocyte Esterase Trace H (Negative) Urine RBC 0-2 (0-2) /HPF Urine WBC 0-5 (0-5) /HPF Ur Squamous Epith Cells 0-2 (0-2) /HPF Urine Bacteria None Seen (None Seen) Hyaline Casts 0-2 (0-2) /LPF Urine Opiates Screen Not Detected (Not Detect) Urine Fentanyl Screen POSITIVE H (Not Detect) Ur Barbiturates Screen Not Detected (Not Detect) Ur Phencyclidine Scrn Not Detected (Not Detect) Ur Amphetamines Screen Not Detected (Not Detect) U Benzodiazepines Scrn Not Detected (Not Detect) Urine Cocaine Screen Not Detected (Not Detect) U Marijuana (THC) Screen POSITIVE H (Not Detect) Influenza Type A (PCR) NEGATIVE (Negative) Influenza Type B (PCR) NEGATIVE (Negative) RSV RNA Qual (PCR) NEGATIVE (Negative) SARS-CoV-2 RNA (RT-PCR) NEGATIVE (Negative) Discharge Plan Discharge Clinical Impression: Abdominal pain Patient Disposition: Admitted As Inpatient Prescriptions: No Action tamsulosin 0.4 mg capsule 0.4 mg PO BEDTIME 90 Days Qty: 90 1RF tizanidine 2 mg tablet 2 mg PO TID PRN (Reason: muscle spasticity) 30 Days Qty: 90 3RF naproxen [Naprosyn] 500 mg tablet 500 mg PO BEDTIME PRN (Reason: pain) ibuprofen 400 mg tablet 400 mg PO Q6H PRN (Reason: pain) Qty: 20 0RF ondansetron 4 mg tablet,disintegrating 4 mg PO Q8H PRN (Reason: nausea and vomiting) Qty: 20 0RF quetiapine 25 mg tablet 25 mg PO BEDTIME baclofen 20 mg tablet 20 mg PO BEDTIME pregabalin 300 mg capsule 300 mg PO BID carbamazepine 200 mg tablet 200 mg PO BEDTIME metformin 1,000 mg tablet 1,000 mg PO BID (DME) blood sugar diagnostic Strip See Rx Instructions Not Applicable BID Qty: 10 Rx Instructions: As directed (DME) blood-glucose meter Kit See Rx Instructions .ROUTE .MEDSUPPLY Qty: 1 Rx Instructions: As directed bupropion HCl 300 mg tablet extended release 24 hr 300 mg PO QAM prazosin 5 mg capsule 7 mg PO BEDTIME lamotrigine 200 mg tablet 200 mg PO BID (DME) lancets [FreeStyle Lancets] 28 gauge misc See Rx Instructions topical BID Qty: 100 Rx Instructions: As directed Savella 50 mg tablet 50 mg PO BID
[2023-07-02] MEDS: 0.9 % Sodium Chloride 1,000 ML 999 ML IV (17:03)
[2023-07-02 17:08] LABS: Lipase 15 U/L (8-78)
[2023-07-02] MEDS: Morphine Sulfate 4 MG/ML CARTRIDGE IVPUSH ×2 (17:08→22:16)
[2023-07-02] MEDS: Metoclopramide HCl 10 MG/2 ML VIAL IVPUSH (17:08)
[2023-07-02 19:50] VITALS: BP 113/79; PULSE 69; RESP 20; TEMP 36.9; O2SAT 99
--- NOTE | 2023-07-02 20:05 | P.HPHOSP_ITS ---
History of Present Illness Date of Service: 07/02/23 Chief Complaint: Abdominal Pain This is a 53-year-old male with pertinent history of mood disorder, fibromyalgia, [id number]-iibsedjoo diabetes mellitus, BPH, essential hypertension who presents to the emergency department for evaluation of abdominal discomfort. Patient states he has been having left lower quadrant pain that started 1 week prior to presentation. It has been constant, nonradiating and without any relieving factors. Patient states abdominal pain is worse with certain kind of foods. No history of similar complaints in the past. Admits nausea but no vomiting. No diarrhea, hematemesis, melena or hematochezia. Patient denies fever, chills, chest discomfort, palpitations, shortness of breath, changes in urinary habits. Of note, patient was seen in the ER on 06/24 and was discharged after CT scan was concerning for enteritis. Patient states his symptoms have not improved and he continues to have significant abdominal pain. In the emergency department, Gastroenterology was consulted who requested small- bowel follow-through and will see the patient in a.m.. Review of Systems 2 Constitutional: Constitutional: Reports no additional constitutional complaints Cardiovascular: Cardiovascular: Reports no additional cardiovascular complaints Respiratory: Respiratory: Reports no additional respiratory complaints Gastrointestinal: Gastrointestinal: Reports abdominal pain and Reports nausea Genitourinary: Genitourinary: Reports no additional male genitourinary complaints [facility] Medical History History of COVID-19 Low back pain Peripheral neuropathy Arthritis Unintentional weight loss PTSD (post-traumatic stress disorder) Hematuria Left lower quadrant pain Urinary frequency Type 2 diabetes mellitus with unspecified complications Other obstructive and reflux uropathy Benign prostatic hyperplasia with lower urinary tract symptoms Urgency incontinence Hypercalcemia Pertinent family history: No family history of early CAD Surgical History History of surgery Hx of cystoscopy Hx of cardiac catheterization History of prostate surgery Hx of cystoscopy Hx of cystoscopy H/O colonoscopy Social History Are you a primary caregiver services home to a significant other at home: No 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) Alcohol intake: former Patient Tobacco Use Status: Former Tobacco user Quit Date: 2006 Tobacco use type: Cigarette Substance Use Type: Marijuana Advance Directives: No Advance Directives Information Provided: No Meds Allergies Allergy/AdvReac Type Severity Reaction Status Date / Time linagliptin [From TRADJENTA] Allergy Intermediate RASH Verified 06/11/23 15:24 Laztysu-GEC-WlT Reductase Allergy Intermediate ITCHY,SKIN Verified 06/11/23 15:24 Inhibitor BREAKDOWN [[id number] REDUCTASE INHIBITOR] Home Medications Medication Instructions Recorded Confirmed Last Taken Type baclofen 20 mg tablet 20 mg PO BEDTIME 08/31/20 06/11/23 09/07/22 History carbamazepine 200 mg tablet 200 mg PO BEDTIME 08/31/20 06/11/23 09/07/22 History metformin 1,000 mg tablet 1,000 mg PO BID 08/31/20 06/11/23 09/07/22 History pregabalin 300 mg capsule 300 mg PO BID 08/31/20 06/11/23 11/12/22 05:00 History quetiapine 25 mg tablet 25 mg PO BEDTIME 08/31/20 06/11/23 09/07/22 History bupropion HCl 300 mg 24 hr tablet, 300 mg PO QAM 10/14/20 06/11/23 10/29/22 05:15 History extended release lamotrigine 200 mg tablet 200 mg PO BID 10/14/20 06/11/23 10/29/22 05:15 History prazosin 5 mg capsule 7 mg PO BEDTIME 10/14/20 06/11/23 09/06/22 History blood sugar diagnostic #10 ea 02/15/21 06/11/23 Unknown History blood-glucose meter #1 ea 02/15/21 06/11/23 Unknown History naproxen 500 mg tablet (Naprosyn) 500 mg PO BEDTIME PRN pain 10/25/21 06/11/23 10/26/22 History lancets 28 gauge (FreeStyle #100 ea 02/20/22 06/11/23 Unknown History Lancets) cyanocobalamin (vitamin B-12) 1,000 mcg PO DAILY 07/02/23 07/02/23 Unknown History 1,000 mcg tablet duloxetine 30 mg capsule,delayed 30 mg PO DAILY 07/02/23 Unknown History release duloxetine 60 mg capsule,delayed 60 mg PO DAILY 07/02/23 07/02/23 Unknown History release finasteride 5 mg tablet 5 mg PO DAILY 07/02/23 Unknown History lisinopril 2.5 mg tablet 2.5 mg PO DAILY 07/02/23 Unknown History prazosin 2 mg capsule 2 mg PO BEDTIME 07/02/23 Unknown History rosuvastatin 10 mg tablet 10 mg PO DAILY 07/02/23 Unknown History Physical Exam 2 Vital Signs and Narrative: Vital Signs: Last Vital Signs Temp 98.4 F 07/02/23 19:50 Pulse 69 07/02/23 19:50 Resp 20 07/02/23 19:50 BP 113/79 07/02/23 19:50 Pulse Ox 99 07/02/23 19:50 O2 Del Method Room Air 07/02/23 19:50 BMI result Body Mass Index 21.8 Middle-aged male lying in bed in no distress Neck supple, no JVD Regular rate and rhythm, S1-S2 heard Regular breath sounds bilaterally, no wheezing or crackles appreciated Abdomen with left-sided tenderness, no guarding, no rigidity, no rebound tenderness Patient is awake, alert and oriented to self, place, time and person ; no focal motor deficit Psych: Normal mood No pedal edema Results Labs 07/02/23 14:14 07/02/23 14:14 Labs: Laboratory Results - last 24 hr 07/02/23 07/02/23 14:14 15:32 MCV 87.1 MCH 30.4 MCHC 34.9 RDW 11.9 Plt Count 177 MPV 10.5 Immature Gran % (Auto) 0.4 Neut % (Auto) 76.9 H Lymph % (Auto) 15.9 L [place] % (Auto) 6.1 Eos % (Auto) 0.6 Baso % (Auto) 0.1 Lymph # (Auto) 1.3 [place] # (Auto) 0.5 Eos # (Auto) 0.1 Baso # (Auto) 0.0 Abs Immat Gran (auto) 0.03 Absolute Neuts (auto) 6.1 Absolute Nucleated RBC 0.000 Nucleated RBC % (auto) 0.0 Anion Gap 18 Estim Creat Clear Calc 103.8 Estimated GFR > 60 Random Glucose 118 H Calcium 9.7 Magnesium 1.8 Total Bilirubin 0.4 AST 13 ALT 11 Alkaline Phosphatase 99 Total Protein 6.8 Albumin 4.5 Lipase 15 Urine Color Yellow Urine Appearance Clear Urine pH 8.5 Ur Specific [place] 1.020 Urine Protein Negative Urine Glucose (UA) Negative Urine Ketones >=160 Urine Blood Negative Urine Nitrite Negative Ur Leukocyte Esterase Trace H Urine RBC 0-2 Urine WBC 0-5 Ur Squamous Epith Cells 0-2 Urine Bacteria None Seen Hyaline Casts 0-2 Urine Opiates Screen Not Detected Urine Fentanyl Screen POSITIVE H Ur Barbiturates Screen Not Detected Ur Phencyclidine Scrn Not Detected Ur Amphetamines Screen Not Detected U Benzodiazepines Scrn Not Detected Urine Cocaine Screen Not Detected U Marijuana (THC) Screen POSITIVE H Influenza Type A (PCR) NEGATIVE Influenza Type B (PCR) NEGATIVE RSV RNA Qual (PCR) NEGATIVE SARS-CoV-2 RNA (RT-PCR) NEGATIVE Imaging Radiologist's Impressions: Impressions Abdomen/Pelvis CT 07/02/23 16:38 IMPRESSION: * Mildly dilated small bowel loops in the left upper quadrant, some of the bowel loops have thickened wall, this is nonspecific CT findings, no definite high degree obstruction or perforation is present. This could be sequela of ileitis, infection, inflammatory, Crohn's among other entities. Please correlate clinically, follow-up nonemergent barium study upper GI and small bowel series could be utilized for further investigation. * Nonobstructing stones in the right kidney. No hydronephrosis. 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 Other noncritical findings include electronic device embedded in the subcutaneous fat of the left buttock the tip in the pelvis. Assessment and Plan (1) Abdominal pain: Status: Acute Plan This is a 53-year-old male with pertinent history of mood disorder, fibromyalgia, lhy-ofspock-djpnpbqws diabetes mellitus, BPH, essential hypertension who presents to the emergency department for evaluation of abdominal discomfort. #. Abdominal pain, intractable: Will admit patient for observation for intractable abdominal pain. Unclear etiology. GI was consulted from the ER, appreciate assistance. Small-bowel follow-through, GI panel and fecal calprotectin pending. Symptomatic management for now. #. Mood disorder: Continue home mood stabilizers #. Crd-vgspbog-zpdwfrcmj diabetes mellitus: Initiating Accu-Cheks with sliding scale insulin #. BPH: On finasteride and Flomax #. ?Polysubstance use: UDS positive for fentanyl and marijuana. Monitor for withdrawals. Consulting Addiction Team Med rec pending DVT prophylaxis: Mechanical Quality Stroke Does the patient have a stroke diagnosis?: No VTE Prior VTE?: No VTE Risk Level:: Medical - moderate - high VTE Device Contraindication: N/A - Device Ordered VTE Drug Contraindication: Treatment Not Indicated
--- NOTE | 2023-07-02 20:27 | PHA.MEDREC ---
Pharmacy Consult ? Medication Reconciliation Pharmacy has completed the medication reconciliation. Taina had list of medications on his phone that match claim history. Reports no longer taking Stevalla. Also confirmed he is only bupropion 300 mg and not bupropion 150 mg. Ana Cristina Hoff, PharmD
[2023-07-02] MEDS: ondansetron HCL 4 MG/2 ML VIAL IVPUSH (21:09)
[2023-07-02 21:23] LABS: Glucose, Whole Blood 90 mg/dL (60-115)
--- NOTE | 2023-07-02 21:32 | PC.NURSE ---
I assumed care of the pt at 1900. Pt is resting in bed, complaining of 8/10 pain and nausea. Pt is A&Ox4, GCS 15, with warm, dry skin. Pt has a 20g IV in the left AC that is patent and secure. Pt medicated per OCT. Due to POC of 90, no insulin coverage needed. Pt waiting admission orders and bed assignment at this time.
[2023-07-03] VITALS (10 sets, daily range): BP systolic 121–151; BP diastolic 61–84; PULSE 58–95; RESP 14–20; TEMP 36.1–37; O2SAT 97–100
[2023-07-03] MEDS: 0.9 % Sodium Chloride Flush 3 ML SYRINGE IVFLUSH ×3 (00:05→15:29)
[2023-07-03] MEDS: Morphine Sulfate 4 MG/ML CARTRIDGE IVPUSH ×4 (03:40→21:41)
[2023-07-03] MEDS: Metoclopramide HCl 10 MG/2 ML VIAL IVPUSH (03:40)
[2023-07-03 06:04] LABS: MANUAL DIFF FLAG NO
[2023-07-03 06:12] LABS: Basophils Percent Auto 0.3 % (0-2); Eosinophils Absolute Auto 0.1 X10*3/uL (0.0-0.4); Hematocrit 39.5 % (42.0-52.0); Hemoglobin 13.3 g/dl (14.0-18.0); Imm Gran Abs Auto 0.07 X10*3/uL (0.00-0.03); Imm Gran Pct Auto 1.1 % (0.0-0.4); Lymphocytes Absolute Auto 1.6 X10*3/uL (1.2-4.9); Lymphocytes Percent Auto 26.2 % (20-40); Mean Corpuscular HGB Conc 33.7 g/dl (31.0-36.0); Mean Corpuscular Hemoglobin 30.7 pg (27.0-33.0); Mean Corpuscular Volume 91.2 fL (80.0-98.0); Mean Platelet Volume 11.4 fL (9.4-12.4); Monocytes Absolute Auto 0.4 X10*3/uL (0.1-1.2); Monocytes Percent Auto 6.4 % (2-11); Neutrophils Absolute Auto 4.1 x10*3/uL (2.0-8.3); Platelet Count 182 X10*3/uL (160-400); Red Blood Count 4.33 X10*6/uL (4.60-5.80); Red Cell Distribution Width 11.9 % (11.0-16.0); White Blood Count 6.3 X10*3/uL (4.8-10.8)
[2023-07-03 06:44] LABS: Anion Gap 22 (12-20); Blood Urea Nitrogen 12 mg/dL (9-16); Calcium 9.6 mg/dL (8.4-10.2); Carbon Dioxide 20 mmol/L (22-29); Chloride 104 mmol/L (96-108); Creatinine Clr Calc Pharmacy 90.8; Estimated Glomerular Filt Rate > 60; Glucose Random 125 mg/dL (60-115); Potassium 4.1 mmol/L (3.3-5.1); Sodium 142 mmol/L (135-145)
--- NOTE | 2023-07-03 07:30 | PC.NURSE ---
PT TO XRAY FOR SMALL BOWEL SERIES VIA W/C.
--- NOTE | 2023-07-03 08:15 | PC.NURSE ---
PT RETURNED FROM XRAY WHICH HE MODERATELY TOLERATED. PT WAS N/V SO PT WAS RETURNED TO ROOM, BED 8. PT IS C/O NAUSEA AND LLQ ABD PAIN 10/10.
--- NOTE | 2023-07-03 08:20 | MHC.CM.PN ---
Addendum entered by Alicia Chapman 07/03/23 09:20: PT REPORTS HE LIVES WITH HIS AND REQUIRES ASSISTANCE WITH CARE HE REPORTS HE HAS A DIALYSIS NURSE 3 HOURS PER DAY, 7 DAYS PER WEEK HE REPORTS HE HAS A CANE, WALKER AND MOTORIZED SCOOTER FOR DME PT STATES HIS IS HIS HCP, COPY REQUESTED PCP: JOSE CARRANZA OBSERVATION NOTICE DELIVERED, COPY SENT TO [facility] CURRENT DCP: [facility] TO TRANSPORT Original Note: CM ATTEMPTED TO SEE PT X 2 PT OUT OF ROOM CM TO REVISIT
[2023-07-03] MEDS: ondansetron HCL 4 MG/2 ML VIAL IVPUSH ×2 (08:25→21:41)
[2023-07-03 08:30] LABS: Glucose, Whole Blood 150 mg/dL (60-115)
--- NOTE | 2023-07-03 08:40 | PC.NURSE ---
PT IS A/O X 4 NO SOB/LATISHA NOTED SPEAKS IN FULL SENTENCES. PT IS LYING ON HIS R SIDE IN BED. PT IS ADMITTED TO HOSP. PT IS AWARE OF PLAN OF CARE.
[2023-07-03 11:37] LABS: Glucose, Whole Blood 120 mg/dL (60-115)
--- NOTE | 2023-07-03 11:50 | P.PNIM_ITS ---
Subjective Subjective Date of Service: 07/03/23 Interval History: nausea, abd pain Physical Exam 2 Vital Signs: Vital Signs: Last Vital Signs Temp 97.3 F 07/03/23 08:16 Pulse 73 07/03/23 11:32 Resp 14 07/03/23 11:32 BP 122/61 07/03/23 11:32 Pulse Ox 97 07/03/23 11:32 O2 Del Method Room Air 07/03/23 11:32 BMI result Body Mass Index 21.8 General: AO X 3, in discomfort Resp: CTA bilateral, no accessory muscles used CVS: S1,S2,RRR GI: soft, non tender, non distended Neuro: motor grossly intact, alert Psych: appropriate affect, appropriate insight Objective Data Active Medications Acetaminophen (Acetaminophen 325 Mg Tablet) 650 mg PO Q6H PRN PRN Reason: Pain, Mild (Pain Scale 1-3) Dextrose (Dextrose 50 % 25 Gm/50 Ml Syringe) 25 gm IVPUSH Q15M PRN; Protocol PRN Reason: per Hypoglycemia Standing Ord. Glucose (Glucose Gel 15 Gm Gel..Gram.) 15 gm PO Q15M PRN; Protocol PRN Reason: per Hypoglycemia Standing Ord. Insulin Human Lispro (Insulin Lispro 100 Unit/Ml 3 Ml Vial) [facility]; Protocol Last Admin: 07/03/23 11:37 Dose: Not Given Documented By: MERRICK Non-Admin Reason: No Insulin Coverage Melatonin (Melatonin 3 Mg Tablet) 6 mg PO BEDTIME PRN PRN Reason: Insomnia Morphine Sulfate (Morphine Sulfate 4 Mg/Ml Cartridge) 4 mg IVPUSH Q4H PRN; Protocol PRN Reason: Pain, Severe (Pain Scale 7-10) Last Admin: 07/03/23 08:27 Dose: 4 mg Documented By: MERRICK Ondansetron HCl (Ondansetron Hcl 4 Mg/2 Ml Vial) 4 mg IVPUSH Q8H PRN PRN Reason: Nausea and Vomiting Last Admin: 07/03/23 08:25 Dose: 4 mg Documented By: MERRICK Sodium Chloride (0.9 % Sodium Chloride Flush 3 Ml Syringe) [facility] Last Admin: 07/03/23 08:51 Dose: 3 ml Documented By: MERRICK Labs 07/03/23 04:37 07/03/23 04:37 Labs: Laboratory Results - last 24 hr 07/02/23 07/02/23 07/02/23 14:14 15:32 21:16 MCV 87.1 MCH 30.4 MCHC 34.9 RDW 11.9 Plt Count 177 MPV 10.5 Immature Gran % (Auto) 0.4 Neut % (Auto) 76.9 H Lymph % (Auto) 15.9 L [place] % (Auto) 6.1 Eos % (Auto) 0.6 Baso % (Auto) 0.1 Lymph # (Auto) 1.3 [place] # (Auto) 0.5 Eos # (Auto) 0.1 Baso # (Auto) 0.0 Abs Immat Gran (auto) 0.03 Absolute Neuts (auto) 6.1 Absolute Nucleated RBC 0.000 Nucleated RBC % (auto) 0.0 Anion Gap 18 Estim Creat Clear Calc 103.8 Estimated GFR > 60 POC Glucose 90 Random Glucose 118 H Calcium 9.7 Magnesium 1.8 Total Bilirubin 0.4 AST 13 ALT 11 Alkaline Phosphatase 99 Total Protein 6.8 Albumin 4.5 Lipase 15 Urine Color Yellow Urine Appearance Clear Urine pH 8.5 Ur Specific [place] 1.020 Urine Protein Negative Urine Glucose (UA) Negative Urine Ketones >=160 Urine Blood Negative Urine Nitrite Negative Ur Leukocyte Esterase Trace H Urine RBC 0-2 Urine WBC 0-5 Ur Squamous Epith Cells 0-2 Urine Bacteria None Seen Hyaline Casts 0-2 Urine Opiates Screen Not Detected Urine Fentanyl Screen POSITIVE H Ur Barbiturates Screen Not Detected Ur Phencyclidine Scrn Not Detected Ur Amphetamines Screen Not Detected U Benzodiazepines Scrn Not Detected Urine Cocaine Screen Not Detected U Marijuana (THC) Screen POSITIVE H Influenza Type A (PCR) NEGATIVE Influenza Type B (PCR) NEGATIVE RSV RNA Qual (PCR) NEGATIVE SARS-CoV-2 RNA (RT-PCR) NEGATIVE 07/03/23 07/03/23 07/03/23 04:37 08:17 11:31 MCV 91.2 MCH 30.7 MCHC 33.7 RDW 11.9 Plt Count 182 MPV 11.4 Immature Gran % (Auto) 1.1 H Neut % (Auto) 65.0 Lymph % (Auto) 26.2 [place] % (Auto) 6.4 Eos % (Auto) 1.0 Baso % (Auto) 0.3 Lymph # (Auto) 1.6 [place] # (Auto) 0.4 Eos # (Auto) 0.1 Baso # (Auto) 0.0 Abs Immat Gran (auto) 0.07 H Absolute Neuts (auto) 4.1 Absolute Nucleated RBC 0.000 Nucleated RBC % (auto) 0.0 Anion Gap 22 H Estim Creat Clear Calc 90.8 Estimated GFR > 60 POC Glucose 150 H 120 H Random Glucose 125 H Calcium 9.6 Magnesium Total Bilirubin AST ALT Alkaline Phosphatase Total Protein Albumin Lipase Urine Color Urine Appearance Urine pH Ur Specific [place] Urine Protein Urine Glucose (UA) Urine Ketones Urine Blood Urine Nitrite Ur Leukocyte Esterase Urine RBC Urine WBC Ur Squamous Epith Cells Urine Bacteria Hyaline Casts Urine Opiates Screen Urine Fentanyl Screen Ur Barbiturates Screen Ur Phencyclidine Scrn Ur Amphetamines Screen U Benzodiazepines Scrn Urine Cocaine Screen U Marijuana (THC) Screen Influenza Type A (PCR) Influenza Type B (PCR) RSV RNA Qual (PCR) SARS-CoV-2 RNA (RT-PCR) Assessment and Plan (1) Abdominal pain: Status: Acute Plan 53M PMH htn, mood disorder, dm, bph, presented with abd pain Intractable abdominal pain Follow-up small-bowel follow-through Still not tolerating p.o. Follow-up GI Mood disorder Continue mood stabilizers Hypertension Lisinopril Diabetes Insulin BPH Proscar and Flomax DVT prophylaxis with Lovenox Full code reason for continued hospitalization: Not tolerating p.o. Quality Stroke Does the patient have a stroke diagnosis?: No VTE Prior VTE?: No VTE Risk Level:: Medical - moderate - high VTE Device Contraindication: N/A - Device Ordered VTE Drug Contraindication: Treatment Not Indicated
--- NOTE | 2023-07-03 11:56 | MHC.RECOVRN ---
Met with pt in ED8 after consult placed to Addiction Medicine for fentanyl use disorder. Pt had presented to the ED for LLQ tenderness, lower abdominal pain, hx. of diabetes and fibromyalgia. Upon evaluation, pt admitted for further workup and treatment of acute abdominal pain. Pt laying in bed, awake, alert, easily engages in conversation, appears comfortable. Pt denies hx opioid use/OUD. Informed pt of UDS positive for fentanyl, pt expresses shock and confusion. Pt reports medical marijuana use only that he obtains from a dispensary. Pt reports hx (25 years ago) cocaine use. Pt denies taking any illicit pills. Denies any recent substance use other than marijuana. Pt educated on risk of fentanyl presence in illicit substances. Pt verbalizes understanding. Pt denies questions or concerns for t/w. Discussed with Martha Sorensen APRN.
[2023-07-03] MEDS: buPROPion HCl XL 300 MG TAB.ER.24H PO (13:31)
[2023-07-03] MEDS: Enoxaparin Sodium 40 MG/0.4 ML SYRINGE SUBCUT (13:31)
[2023-07-03] MEDS: 0.9 % Sodium Chloride 1,000 ML 100 ML IVCONT ×2 (13:32→23:17)
--- NOTE | 2023-07-03 13:51 | PM.GICN ---
History of Present Illness Data of Consult Service Date: 07/03/23 Requesting physician: Amarilys Pearson Primary Care Provider: Alessandra Bates MD [facility] Reason for consult: Abnormal CT scan This is a 53-year-old gentleman past medical history of BPH, anal fissure, BPH, PTSD, presented to the hospital for abdominal pain. This is his 2nd visit to the hospital. He was seen last week as well for abdominal pain with nausea and vomiting along with diarrhea and was diagnosed with infectious enteritis at that time. He returned last night with unrelenting sx and localisation of pain mostly to left side. Does not report any fevers or chills. No diarrhea. No sick contacts. Does not report recent travel or eating outside. Does not have personal or fam hx of autoimmune diseases including IBD - albeit he was recently diagnosed with an anal fissure in December 2022 which was attributed to chronic constipation. To note - is also being seen by pain management for sacro-iliitis. On initial assessment vitals and labs were all stable. CT Abd/pel again demonstrated thickened wall of small bowel in LUQ with some mild dilation without any definite transition point or ileus. Pt had his SBFT this morning and does report feeling a bit better since receiving oral contrast for the series - since then nausea has improved and has been able to tolerate liquids. Review of Systems Review of Systems: Yes all other systems are reviewed and are negative PMF Past Medical History Medical History History of COVID-19 Low back pain Peripheral neuropathy Arthritis Unintentional weight loss PTSD (post-traumatic stress disorder) Hematuria Left lower quadrant pain Urinary frequency Type 2 diabetes mellitus with unspecified complications Other obstructive and reflux uropathy Benign prostatic hyperplasia with lower urinary tract symptoms Urgency incontinence Hypercalcemia Surgical History Surgical History History of surgery Hx of cystoscopy Hx of cardiac catheterization History of prostate surgery Hx of cystoscopy Hx of cystoscopy H/O colonoscopy Social History Social History Are you a primary progressive care nurse to a significant other at home: No Do you presently have visiting nurse or other home services: Yes ([employer]) Alcohol intake: former Patient Tobacco Use Status: Former Tobacco user Quit Date: 2006 Tobacco use type: Cigarette Substance Use Type: Marijuana Advance Directives: No Advance Directives Information Provided: No Nutrition Risks: Acute nausea or vomiting x1 week service: Yes Meds Allergies Allergy/AdvReac Type Severity Reaction Status Date / Time linagliptin [From TRADJENTA] Allergy Intermediate RASH Verified 06/11/23 15:24 Hxreivu-[id number]-LvP Reductase Allergy Intermediate ITCHY,SKIN Verified 06/11/23 15:24 Inhibitor BREAKDOWN [[id number] REDUCTASE INHIBITOR] Active Medications: Current Medications Acetaminophen (Acetaminophen 325 Mg Tablet) 650 mg PO Q6H PRN PRN Reason: Pain, Mild (Pain Scale 1-3) Baclofen (Baclofen 20 Mg Tablet) 20 mg PO BEDTIME [facility] Bupropion HCl (Bupropion Hcl Xl 300 Mg Tab.Er.24h) 300 mg PO DAILY [facility] Last Admin: 07/03/23 13:31 Dose: 300 mg Carbamazepine (Carbamazepine 200 Mg Tablet) 200 mg PO BEDTIME [facility] Cyanocobalamin (Cyanocobalamin (Vitamin B-12) 1,000 Mcg Tablet) 1,000 mcg PO DAILY [facility] Dextrose (Dextrose 50 % 25 Gm/50 Ml Syringe) 25 gm IVPUSH Q15M PRN; Protocol PRN Reason: per Hypoglycemia Standing Ord. Duloxetine HCl (Duloxetine Hcl 30 Mg Capsule.Dr) 30 mg PO DAILY [facility] Duloxetine HCl (Duloxetine Hcl 60 Mg Capsule.Dr) 60 mg PO DAILY [facility] Enoxaparin Sodium (Enoxaparin Sodium 40 Mg/0.4 Ml Syringe) 40 mg SUBCUT Q24H [facility] Last Admin: 07/03/23 13:31 Dose: 40 mg Finasteride (Finasteride 5 Mg Tablet) 5 mg PO DAILY [facility] Glucose (Glucose Gel 15 Gm Gel..Gram.) 15 gm PO Q15M PRN; Protocol PRN Reason: per Hypoglycemia Standing Ord. Sodium Chloride (Ns) 1,000 mls @ 100 mls/hr IVCONT .Q10H [facility] Last Admin: 07/03/23 13:32 Dose: 100 mls/hr Insulin Human Lispro (Insulin Lispro 100 Unit/Ml 3 Ml Vial) 0 unit SUBCUT QIDACHS [facility]; Protocol Last Admin: 07/03/23 11:37 Dose: Not Given Lamotrigine (Lamotrigine 100 Mg Tablet) 200 mg PO BID [facility] Lisinopril (Lisinopril 2.5 Mg Tablet) 2.5 mg PO DAILY [facility]; Protocol Melatonin (Melatonin 3 Mg Tablet) 6 mg PO BEDTIME PRN PRN Reason: Insomnia Morphine Sulfate (Morphine Sulfate 4 Mg/Ml Cartridge) 4 mg IVPUSH Q4H PRN; Protocol PRN Reason: Pain, Severe (Pain Scale 7-10) Last Admin: 07/03/23 13:30 Dose: 4 mg Non-Formulary Medication (Rosuvastatin) 10 mg PO DAILY [facility] Ondansetron HCl (Ondansetron Hcl 4 Mg/2 Ml Vial) 4 mg IVPUSH Q8H PRN PRN Reason: Nausea and Vomiting Last Admin: 07/03/23 08:25 Dose: 4 mg Prazosin HCl (Prazosin Hcl 1 Mg Capsule) 2 mg PO BEDTIME [facility]; Protocol Prazosin HCl (Prazosin Hcl 5 Mg Capsule) 5 mg PO BEDTIME [facility]; Protocol Pregabalin (Pregabalin 150 Mg Capsule) 300 mg PO BID [facility] Quetiapine Fumarate (Quetiapine Fumarate 25 Mg Tablet) 25 mg PO BEDTIME [facility] Sodium Chloride (0.9 % Sodium Chloride Flush 3 Ml Syringe) 3 ml IVFLUSH QSHIFT [facility] Last Admin: 07/03/23 08:51 Dose: 3 ml Tamsulosin HCl (Tamsulosin Hcl 0.4 Mg Capsule) 0.4 mg PO BEDTIME [facility] Home Medications Medication Instructions Recorded Confirmed Last Taken Type baclofen 20 mg tablet 20 mg PO BEDTIME 08/31/20 07/02/23 09/07/22 History carbamazepine 200 mg tablet 200 mg PO BEDTIME 08/31/20 07/02/23 09/07/22 History metformin 1,000 mg tablet 1,000 mg PO BID 08/31/20 07/02/23 09/07/22 History pregabalin 300 mg capsule 300 mg PO BID 08/31/20 07/02/23 11/12/22 05:00 History quetiapine 25 mg tablet 25 mg PO BEDTIME 08/31/20 07/02/23 09/07/22 History bupropion HCl 300 mg 24 hr tablet, 300 mg PO QAM 10/14/20 07/02/23 10/29/22 05:15 History extended release lamotrigine 200 mg tablet 200 mg PO BID 10/14/20 07/02/23 10/29/22 05:15 History prazosin 5 mg capsule 5 mg PO BEDTIME 10/14/20 07/03/23 09/06/22 History blood sugar diagnostic #10 ea 02/15/21 06/11/23 Unknown History blood-glucose meter #1 ea 02/15/21 06/11/23 Unknown History naproxen 500 mg tablet (Naprosyn) 500 mg PO BEDTIME pain 10/25/21 07/02/23 10/26/22 History lancets 28 gauge (FreeStyle #100 ea 02/20/22 06/11/23 Unknown History Lancets) cyanocobalamin (vitamin B-12) 1,000 mcg PO DAILY 07/02/23 07/02/23 Unknown History 1,000 mcg tablet duloxetine 30 mg capsule,delayed 30 mg PO DAILY 07/02/23 07/02/23 Unknown History release duloxetine 60 mg capsule,delayed 60 mg PO DAILY 07/02/23 07/02/23 Unknown History release finasteride 5 mg tablet 5 mg PO DAILY 07/02/23 07/02/23 Unknown History lisinopril 2.5 mg tablet 2.5 mg PO DAILY 07/02/23 07/02/23 Unknown History prazosin 2 mg capsule 2 mg PO BEDTIME 07/02/23 07/02/23 Unknown History rosuvastatin 10 mg tablet 10 mg PO DAILY 07/02/23 07/02/23 Unknown History Physical Exam Vital Signs: Vital Signs: Last Vital Signs Temp 97.0 F 07/03/23 13:00 Pulse 95 07/03/23 13:00 Resp 14 07/03/23 13:00 BP 151/84 H 07/03/23 13:00 Pulse Ox 99 07/03/23 13:00 O2 Del Method Room Air 07/03/23 13:00 BMI result Body Mass Index 21.8 Gen appear: NAD HEENT: nonicteric, no cervical lymphadenopathy Chest: CTA CVS: Regular S1/S2 Abd: soft, tenderness in LUQ and LLQ with guarding, nondistended Ext: no peripheral edema Neuro: A/Ox3, noted to move all extremities spontaneously Psych: interacting appropriately Results Labs 07/03/23 04:37 07/03/23 04:37 Labs: Short CBC 07/02/23 07/03/23 Range/Units 14:14 04:37 WBC 7.9 6.3 (4.8-10.8) X10*3/uL Hgb 13.0 L 13.3 L (14.0-18.0) g/dl Hct 37.3 L 39.5 L (42.0-52.0) % Plt Count 177 182 (160-400) X10*3/uL BMP 07/02/23 07/03/23 14:14 04:37 Sodium 138 142 Potassium 4.0 4.1 Chloride 102 104 Carbon Dioxide 22 20 L BUN 13 12 Creatinine 0.84 0.96 Calcium 9.7 9.6 Liver Function 07/02/23 Range/Units 14:14 Total Bilirubin 0.4 (0.0-1.0) mg/dL AST 13 (5-37) U/L ALT 11 (0-40) U/L Alkaline Phosphatase 99 (39-117) U/L Albumin 4.5 (3.5-5.0) g/dL Urine 07/02/23 Range/Units 15:32 Urine Color Yellow Urine Appearance Clear Urine pH 8.5 (5.0-9.0) Ur Specific [place] 1.020 (1.005-1.025) Urine Protein Negative (Neg-Trace) mg/dL Urine Glucose (UA) Negative (Negative) mg/dL Assessment and Plan (1) Abdominal pain: Status: Acute (2) Anal fissure: Status: Acute (3) Enteritis: Status: Inactive (4) Sacroiliitis: Status: Acute Plan Although has non-specific findings on imaging and symptom onset is relatively acute, given underlying hx of anal fissure and sacro-iliitis, crohns remains high on DDx. SBFT done and report pending. Other ddx includes infectious enteritis, auto-immune enteritis, etc. Ischemic cause highly unlikely given extent and location of segment involved. Plan: - Await reading of SBFT - May need further work up such as CTE or VCE depending on findings on SBFT and chronicity of sx - Fecal calpro pending. Pls also check CRP. - Ok to advance diet to liquid diet if pt tolerates Thank you for allowing me to participate in his care. Please do not hesitate to reach out for questions or concerns. Procedures Date of Service Date of Service: 07/03/23
[2023-07-03 15:30] LABS: Adenovirus F 40/41 Not Detected (Not Detect.); Astrovirus Not Detected (Not Detect.); Campylobacter Not Detected (Not Detect.); Cryptosporidium Not Detected (Not Detect.); Cyclospora cayetanensis Not Detected (Not Detect.); E. coli EAEC Not Detected (Not Detect.); E. coli EPEC Not Detected (Not Detect.); E. coli ETEC Not Detected (Not Detect.); E. coli STEC Not Detected (Not Detect.); Entamoeba histolytica Not Detected (Not Detect.); Giardia lamblia Not Detected (Not Detect.); Norovirus GI/GII Not Detected (Not Detect.); Plesiomonas shigelloides Not Detected (Not Detect.); Rotavirus A Not Detected (Not Detect.); Salmonella Not Detected (Not Detect.); Sapovirus Not Detected (Not Detect.); Shigella sp./EIEC Not Detected (Not Detect.); Vibrio Not Detected (Not Detect.); Vibrio Cholerae Not Detected (Not Detect.); Yersinia enterocolitica Not Detected (Not Detect.)
--- NOTE | 2023-07-03 15:35 | PC.NURSE ---
this RN resumed care of pt at this time. pt currently resting w/ lights dimmed and seems to be in no apparent distress. pt c/o no pain at this time post medication administration. respirations even and unlabored. call hoover placed within reach.
[2023-07-03 17:12] LABS: Glucose, Whole Blood 110 mg/dL (60-115)
--- NOTE | 2023-07-03 17:16 | PM.EVENT ---
Event Note Date of Service: 07/03/23 Event Note: Addiction consult placed for patient with +UDS (fentanyl) Seen by refinery operator vapor recovery unit, patient denied any substance use, including fentanyl. Risk reduction discussion No further intervention necessary at this time Time Spent With Patient Time: Total time managing care of this patient today ____ minutes.
--- NOTE | 2023-07-03 17:28 | PC.NURSE ---
POC = 110mg/dL per tech - no insulin coverage needed at this time. pt awaiting admission at this time. call hoover placed within reach.
--- NOTE | 2023-07-03 18:52 | MHC.EDTECH ---
THIS TECH TOOK OVER CARE MULTI SLIDE MACHINE TENDER AT 1900
--- NOTE | 2023-07-03 20:13 | PC.NURSE ---
report given to COLETTE Sommers.
[2023-07-03 20:53] LABS: Glucose, Whole Blood 167 mg/dL (60-115)
[2023-07-03] MEDS: lamoTRIgine 100 MG TABLET 200 MG PO (21:06)
[2023-07-03] MEDS: Prazosin HCL 1 MG CAPSULE 2 MG PO (21:06)
[2023-07-03] MEDS: Tamsulosin HCL 0.4 MG CAPSULE PO (21:06)
[2023-07-03] MEDS: Baclofen 20 MG TABLET PO (21:06)
[2023-07-03] MEDS: Prazosin HCL 5 MG CAPSULE PO (21:06)
[2023-07-03] MEDS: Pregabalin 150 MG CAPSULE 300 MG PO (21:06)
[2023-07-03] MEDS: QUEtiapine Fumarate 25 MG TABLET PO (21:06)
[2023-07-03] MEDS: carBAMazepine 200 MG TABLET PO (21:07)
[2023-07-04] MEDS: Morphine Sulfate 4 MG/ML CARTRIDGE IVPUSH ×4 (03:58→19:38)
[2023-07-04 04:00] VITALS: BP 100/61; PULSE 94; RESP 20; TEMP 36.8; O2SAT 98
[2023-07-04 07:13] LABS: Hematocrit 35.3 % (42.0-52.0); Hemoglobin 11.9 g/dl (14.0-18.0); Mean Corpuscular HGB Conc 33.7 g/dl (31.0-36.0); Mean Corpuscular Hemoglobin 30.2 pg (27.0-33.0); Mean Corpuscular Volume 89.6 fL (80.0-98.0); Mean Platelet Volume 10.6 fL (9.4-12.4); Platelet Count 168 X10*3/uL (160-400); Red Blood Count 3.94 X10*6/uL (4.60-5.80); Red Cell Distribution Width 12.1 % (11.0-16.0); White Blood Count 5.4 X10*3/uL (4.8-10.8)
[2023-07-04 07:18] VITALS: BP 100/63; PULSE 71; RESP 16; TEMP 36.2; O2SAT 98
[2023-07-04 07:19] LABS: Glucose, Whole Blood 106 mg/dL (60-115)
[2023-07-04 07:36] LABS: Anion Gap 14 (12-20); Blood Urea Nitrogen 8 mg/dL (9-16); Calcium 9.2 mg/dL (8.4-10.2); Carbon Dioxide 23 mmol/L (22-29); Chloride 108 mmol/L (96-108); Creatinine Clr Calc Pharmacy 103.8; Estimated Glomerular Filt Rate > 60; Glucose Fasting 107 mg/dL (60-99); Potassium 3.6 mmol/L (3.3-5.1); Sodium 141 mmol/L (135-145)
[2023-07-04] MEDS: Pregabalin 150 MG CAPSULE 300 MG PO ×2 (10:45→22:08)
[2023-07-04] MEDS: Enoxaparin Sodium 40 MG/0.4 ML SYRINGE SUBCUT (10:45)
[2023-07-04] MEDS: lisinopriL 2.5 MG TABLET PO (10:46)
[2023-07-04] MEDS: Cyanocobalamin (Vitamin B-12) 1,000 MCG TABLET 1000 MCG PO (10:46)
[2023-07-04 10:47] VITALS: BP 109/64; PULSE 62; RESP 20; TEMP 36.3; O2SAT 98
[2023-07-04] MEDS: buPROPion HCl XL 300 MG TAB.ER.24H PO (10:47)
[2023-07-04] MEDS: lamoTRIgine 100 MG TABLET 200 MG PO ×2 (10:47→22:07)
[2023-07-04] MEDS: DULoxetine HCl 30 MG CAPSULE.DR PO (10:47)
[2023-07-04] MEDS: DULoxetine HCl 60 MG CAPSULE.DR PO (10:47)
[2023-07-04] MEDS: Finasteride 5 MG TABLET PO (10:48)
[2023-07-04] MEDS: 0.9 % Sodium Chloride Flush 3 ML SYRINGE IVFLUSH ×3 (10:49→19:38)
[2023-07-04] MEDS: 0.9 % Sodium Chloride 1,000 ML 100 ML IVCONT (10:56)
--- NOTE | 2023-07-04 11:08 | P.PNIM_ITS ---
Subjective Subjective Date of Service: 07/04/23 Interval History: tolerating clears, still with discomfort Physical Exam 2 Vital Signs: Vital Signs: Last Vital Signs Temp 97.3 F 07/04/23 10:47 Pulse 62 07/04/23 10:47 Resp 20 07/04/23 10:47 BP 109/64 07/04/23 10:47 Pulse Ox 98 07/04/23 10:47 O2 Del Method Room Air 07/04/23 10:47 BMI result Body Mass Index 21.8 Gen appear: NAD HEENT: nonicteric, no cervical lymphadenopathy Chest: CTA CVS: Regular S1/S2 Abd: soft, tenderness in LUQ and LLQ with guarding, nondistended Ext: no peripheral edema Neuro: A/Ox3, noted to move all extremities spontaneously Psych: interacting appropriately Objective Data Active Medications Acetaminophen (Acetaminophen 325 Mg Tablet) 650 mg PO Q6H PRN PRN Reason: Pain, Mild (Pain Scale 1-3) Baclofen (Baclofen 20 Mg Tablet) 20 mg PO BEDTIME [facility] Last Admin: 07/03/23 21:06 Dose: 20 mg Documented By: ABRAM Bupropion HCl (Bupropion Hcl Xl 300 Mg Tab.Er.24h) 300 mg PO DAILY [facility] Last Admin: 07/04/23 10:47 Dose: 300 mg Documented By: KIRBY Carbamazepine (Carbamazepine 200 Mg Tablet) 200 mg PO BEDTIME [facility] Last Admin: 07/03/23 21:07 Dose: 200 mg Documented By: ABRAM Cyanocobalamin (Cyanocobalamin (Vitamin B-12) 1,000 Mcg Tablet) 1,000 mcg PO DAILY [facility] Last Admin: 07/04/23 10:46 Dose: 1,000 mcg Documented By: KIRBY Dextrose (Dextrose 50 % 25 Gm/50 Ml Syringe) 25 gm IVPUSH Q15M PRN; Protocol PRN Reason: per Hypoglycemia Standing Ord. Duloxetine HCl (Duloxetine Hcl 30 Mg Capsule.) 30 mg PO DAILY [facility] Last Admin: 07/04/23 10:47 Dose: 30 mg Documented By: KIRBY Duloxetine HCl (Duloxetine Hcl 60 Mg Capsule.) 60 mg PO DAILY [facility] Last Admin: 07/04/23 10:47 Dose: 60 mg Documented By: KIRBY Enoxaparin Sodium (Enoxaparin Sodium 40 Mg/0.4 Ml Syringe) 40 mg SUBCUT Q24H [facility] Last Admin: 07/04/23 10:45 Dose: 40 mg Documented By: KIRBY Finasteride (Finasteride 5 Mg Tablet) 5 mg PO DAILY [facility] Last Admin: 07/04/23 10:48 Dose: 5 mg Documented By: KIRBY Glucose (Glucose Gel 15 Gm Gel..Gram.) 15 gm PO Q15M PRN; Protocol PRN Reason: per Hypoglycemia Standing Ord. Sodium Chloride (Ns) 1,000 mls @ 100 mls/hr IVCONT .Q10H [facility] Last Admin: 07/04/23 10:56 Dose: 100 mls/hr Documented By: KIRBY Insulin Human Lispro (Insulin Lispro 100 Unit/Ml 3 Ml Vial) 0 unit SUBCUT QIDACHS [facility]; Protocol Last Admin: 07/04/23 10:56 Dose: Not Given Documented By: KIRBY Non-Admin Reason: No Insulin Coverage Lamotrigine (Lamotrigine 100 Mg Tablet) 200 mg PO BID [facility] Last Admin: 07/04/23 10:47 Dose: 200 mg Documented By: KIRBY Lisinopril (Lisinopril 2.5 Mg Tablet) 2.5 mg PO DAILY [facility]; Protocol Last Admin: 07/04/23 10:46 Dose: 2.5 mg Documented By: KIRBY Melatonin (Melatonin 3 Mg Tablet) 6 mg PO BEDTIME PRN PRN Reason: Insomnia Morphine Sulfate (Morphine Sulfate 4 Mg/Ml Cartridge) 4 mg IVPUSH Q4H PRN; Protocol PRN Reason: Pain, Severe (Pain Scale 7-10) Last Admin: 07/04/23 10:46 Dose: 4 mg Documented By: KIRBY Non-Formulary Medication (Rosuvastatin) 10 mg PO DAILY [facility] Ondansetron HCl (Ondansetron Hcl 4 Mg/2 Ml Vial) 4 mg IVPUSH Q8H PRN PRN Reason: Nausea and Vomiting Last Admin: 07/03/23 21:41 Dose: 4 mg Documented By: ABRAM Prazosin HCl (Prazosin Hcl 1 Mg Capsule) 2 mg PO BEDTIME [facility]; Protocol Last Admin: 07/03/23 21:06 Dose: 2 mg Documented By: ABRAM Prazosin HCl (Prazosin Hcl 5 Mg Capsule) 5 mg PO BEDTIME [facility]; Protocol Last Admin: 07/03/23 21:06 Dose: 5 mg Documented By: ABRAM Pregabalin (Pregabalin 150 Mg Capsule) 300 mg PO BID [facility] Last Admin: 07/04/23 10:45 Dose: 300 mg Documented By: KIRBY Quetiapine Fumarate (Quetiapine Fumarate 25 Mg Tablet) 25 mg PO BEDTIME [facility] Last Admin: 07/03/23 21:06 Dose: 25 mg Documented By: ABRAM Sodium Chloride (0.9 % Sodium Chloride Flush 3 Ml Syringe) 3 ml IVFLUSH QSHIFT [facility] Last Admin: 07/04/23 10:49 Dose: 3 ml Documented By: KIRBY Tamsulosin HCl (Tamsulosin Hcl 0.4 Mg Capsule) 0.4 mg PO BEDTIME [facility] Last Admin: 07/03/23 21:06 Dose: 0.4 mg Documented By: ABRAM Labs 07/04/23 06:37 07/04/23 06:37 Labs: Laboratory Results - last 24 hr 07/03/23 07/03/23 07/03/23 11:31 13:16 17:08 MCV MCH MCHC RDW Plt Count MPV Absolute Nucleated RBC Nucleated RBC % (auto) Anion Gap Estim Creat Clear Calc Estimated GFR POC Glucose 120 H 110 Fasting Glucose Calcium Stl C. cayetanensis PCR Not Detected Stool Rotavirus A PCR Not Detected Stl Adenov F 40/41 PCR Not Detected Stool Astrovirus (PCR) Not Detected Stool Campylobacter PCR Not Detected Stool Cryptosporidium PCR Not Detected Stl Sh Tox Pr E STEC PCR Not Detected Stool E coli O157 PCR Not applicable Stl Enterotoxigenic E PCR Not Detected Stool EPEC (PCR) Not Detected Stool EAEC (PCR) Not Detected Stl E. histolytica PCR Not Detected Stool Giardia Lamblia PCR Not Detected Stl P. shigelloides PCR Not Detected Stool Salmonella PCR Not Detected Stool Sapovirus (PCR) Not Detected Stl Shigella/EIEC PCR Not Detected St Y.enterocolitica PCR Not Detected Stool Vibrio (PCR) Not Detected Stl Vibrio cholerae PCR Not Detected Stl Norovirus GI/GII PCR Not Detected 07/03/23 07/04/23 07/04/23 20:47 06:37 07:16 MCV 89.6 MCH 30.2 MCHC 33.7 RDW 12.1 Plt Count 168 MPV 10.6 Absolute Nucleated RBC 0.000 Nucleated RBC % (auto) 0.0 Anion Gap 14 Estim Creat Clear Calc 103.8 Estimated GFR > 60 POC Glucose 167 H 106 Fasting Glucose 107 H Calcium 9.2 Stl C. cayetanensis PCR Stool Rotavirus A PCR Stl Adenov F 40/41 PCR Stool Astrovirus (PCR) Stool Campylobacter PCR Stool Cryptosporidium PCR Stl Sh Tox Pr E STEC PCR Stool E coli O157 PCR Stl Enterotoxigenic E PCR Stool EPEC (PCR) Stool EAEC (PCR) Stl E. histolytica PCR Stool Giardia Lamblia PCR Stl P. shigelloides PCR Stool Salmonella PCR Stool Sapovirus (PCR) Stl Shigella/EIEC PCR St Y.enterocolitica PCR Stool Vibrio (PCR) Stl Vibrio cholerae PCR Stl Norovirus GI/GII PCR Assessment and Plan (1) Abdominal pain: Status: Acute Plan 53M PMH htn, mood disorder, dm, bph, presented with abd pain Intractable abdominal pain Follow-up small-bowel follow-through advanced to clears Follow-up GI Mood disorder Continue mood stabilizers Hypertension Lisinopril Diabetes Insulin BPH Proscar and Flomax DVT prophylaxis with Lovenox Full code reason for continued hospitalization: awaiting tolerance of solids Quality Stroke Does the patient have a stroke diagnosis?: No VTE Prior VTE?: No VTE Risk Level:: Medical - moderate - high VTE Device Contraindication: N/A - Device Ordered VTE Drug Contraindication: Treatment Not Indicated
[2023-07-04 11:31] LABS: Glucose, Whole Blood 149 mg/dL (60-115)
--- NOTE | 2023-07-04 13:26 | P.PNGI_ITS ---
Subjective Subjective Date of Service: 07/04/23 Interval History: Seen and evaluated at bedside. Cont to report LLQ pain but tolerating liquids. Has been passing flatus. Critical Care Time (minutes): 0 Physical Exam 2 Vital Signs: Vital Signs: Last Vital Signs Temp 97.3 F 07/04/23 10:47 Pulse 62 07/04/23 10:47 Resp 20 07/04/23 10:47 BP 109/64 07/04/23 10:47 Pulse Ox 98 07/04/23 10:47 O2 Del Method Room Air 07/04/23 10:47 BMI result Body Mass Index 21.8 Nontoxic appearing abd soft, nondistended Objective Data Labs 07/04/23 06:37 07/04/23 06:37 Labs: Laboratory Results - last 24 hr 07/03/23 07/03/23 07/03/23 13:16 17:08 20:47 WBC RBC Hgb Hct MCV MCH MCHC RDW Plt Count MPV Absolute Nucleated RBC Nucleated RBC % (auto) Sodium Potassium Chloride Carbon Dioxide Anion Gap BUN Creatinine Estim Creat Clear Calc Estimated GFR POC Glucose 110 167 H Fasting Glucose Calcium Stl C. cayetanensis PCR Not Detected Stool Rotavirus A PCR Not Detected Stl Adenov F 40/41 PCR Not Detected Stool Astrovirus (PCR) Not Detected Stool Campylobacter PCR Not Detected Stool Cryptosporidium PCR Not Detected Stl Sh Tox Pr E STEC PCR Not Detected Stool E coli O157 PCR Not applicable Stl Enterotoxigenic E PCR Not Detected Stool EPEC (PCR) Not Detected Stool EAEC (PCR) Not Detected Stl E. histolytica PCR Not Detected Stool Giardia Lamblia PCR Not Detected Stl P. shigelloides PCR Not Detected Stool Salmonella PCR Not Detected Stool Sapovirus (PCR) Not Detected Stl Shigella/EIEC PCR Not Detected St Y.enterocolitica PCR Not Detected Stool Vibrio (PCR) Not Detected Stl Vibrio cholerae PCR Not Detected Stl Norovirus GI/GII PCR Not Detected 07/04/23 07/04/23 07/04/23 06:37 07:16 11:20 WBC 5.4 RBC 3.94 L Hgb 11.9 L Hct 35.3 L MCV 89.6 MCH 30.2 MCHC 33.7 RDW 12.1 Plt Count 168 MPV 10.6 Absolute Nucleated RBC 0.000 Nucleated RBC % (auto) 0.0 Sodium 141 Potassium 3.6 Chloride 108 Carbon Dioxide 23 Anion Gap 14 BUN 8 L Creatinine 0.84 Estim Creat Clear Calc 103.8 Estimated GFR > 60 POC Glucose 106 149 H Fasting Glucose 107 H Calcium 9.2 Stl C. cayetanensis PCR Stool Rotavirus A PCR Stl Adenov F 40/41 PCR Stool Astrovirus (PCR) Stool Campylobacter PCR Stool Cryptosporidium PCR Stl Sh Tox Pr E STEC PCR Stool E coli O157 PCR Stl Enterotoxigenic E PCR Stool EPEC (PCR) Stool EAEC (PCR) Stl E. histolytica PCR Stool Giardia Lamblia PCR Stl P. shigelloides PCR Stool Salmonella PCR Stool Sapovirus (PCR) Stl Shigella/EIEC PCR St Y.enterocolitica PCR Stool Vibrio (PCR) Stl Vibrio cholerae PCR Stl Norovirus GI/GII PCR Procedures Date of Service Date of Service: 07/04/23 Progress Note: A&P Assessment and plan (1) Abdominal pain: Status: Acute (2) Sacroiliitis: Status: Acute (3) Anal fissure: Status: Acute Plan SBFT read still pending. Fecal calpro pending. Abd exam much improved today and pt reports he may be able to tolerate solids. Plan: - SBFT read awaited - Can advance to low residue soft diet Time Spent With Patient Time: Total time managing care of this patient today ____ minutes. Quality Stroke Does the patient have a stroke diagnosis?: No VTE Prior VTE?: No VTE Risk Level:: Medical - moderate - high VTE Device Contraindication: N/A - Device Ordered VTE Drug Contraindication: Treatment Not Indicated
--- NOTE | 2023-07-04 14:09 | MHC.CM.PN ---
Per UR/RN/CM, Patient has been switched from OBSERVATION to INPATIENT. CM met with Patient at bedside and addressed IMM with him, providing Patient with the original and placing a copy on the chart.
[2023-07-04 14:49] VITALS: BP 123/77; PULSE 69; RESP 20; TEMP 37.1; O2SAT 97
[2023-07-04] MEDS: Insulin Lispro 100 UNIT/ML 3 ML VIAL SUBCUT (15:26)
[2023-07-04 15:44] LABS: Glucose, Whole Blood 187 mg/dL (60-115)
[2023-07-04 19:23] VITALS: BP 115/69; PULSE 78; RESP 14; TEMP 36.2; O2SAT 98
[2023-07-04 20:17] LABS: Glucose, Whole Blood 128 mg/dL (60-115)
[2023-07-04] MEDS: Prazosin HCL 5 MG CAPSULE PO (22:07)
[2023-07-04] MEDS: Prazosin HCL 1 MG CAPSULE 2 MG PO (22:07)
[2023-07-04] MEDS: QUEtiapine Fumarate 25 MG TABLET PO (22:08)
[2023-07-04] MEDS: Tamsulosin HCL 0.4 MG CAPSULE PO (22:08)
[2023-07-04] MEDS: Baclofen 20 MG TABLET PO (22:08)
[2023-07-04] MEDS: carBAMazepine 200 MG TABLET PO (22:08)
[2023-07-04 23:38] VITALS: BP 101/56; PULSE 70; RESP 18; TEMP 36.1; O2SAT 96
[2023-07-05] VITALS (7 sets, daily range): BP systolic 91–125; BP diastolic 54–73; PULSE 65–76; RESP 18–20; TEMP 36.1–36.7; O2SAT 95–100
[2023-07-05] MEDS: Morphine Sulfate 4 MG/ML CARTRIDGE IVPUSH ×4 (01:11→20:43)
[2023-07-05 07:14] LABS: Glucose, Whole Blood 127 mg/dL (60-115)
--- NOTE | 2023-07-05 09:49 | PC.NURSE ---
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
--- NOTE | 2023-07-05 09:50 | PC.NURSE ---
[facility] [employer] [employer] [facility] [employer] bladder scan 423cc, straight cath 325cc @1100
[2023-07-05] MEDS: DULoxetine HCl 30 MG CAPSULE.DR PO (10:19)
[2023-07-05] MEDS: Enoxaparin Sodium 40 MG/0.4 ML SYRINGE SUBCUT (10:19)
[2023-07-05] MEDS: lisinopriL 2.5 MG TABLET PO (10:19)
[2023-07-05] MEDS: Cyanocobalamin (Vitamin B-12) 1,000 MCG TABLET 1000 MCG PO (10:19)
[2023-07-05] MEDS: lamoTRIgine 100 MG TABLET 200 MG PO ×2 (10:19→20:42)
[2023-07-05] MEDS: DULoxetine HCl 60 MG CAPSULE.DR PO (10:19)
[2023-07-05] MEDS: Finasteride 5 MG TABLET PO (10:20)
[2023-07-05] MEDS: Acetaminophen 325 MG TABLET 650 MG PO ×2 (10:20→20:42)
[2023-07-05] MEDS: buPROPion HCl XL 300 MG TAB.ER.24H PO (10:20)
[2023-07-05] MEDS: Pregabalin 150 MG CAPSULE 300 MG PO ×2 (10:20→20:40)
[2023-07-05] MEDS: 0.9 % Sodium Chloride Flush 3 ML SYRINGE IVFLUSH (10:20)
[2023-07-05] MEDS: ondansetron HCL 4 MG/2 ML VIAL IVPUSH (10:20)
--- NOTE | 2023-07-05 10:29 | MHC.CM.PN ---
Per ROUNDS discussion, Patient is not yet medically cleared for dc (c/o Abdominal Pain, did not tolerate breakfast, needs GI consult); Home/resume services is the goal and CM will continue to follow.
[2023-07-05 11:04] LABS: Glucose, Whole Blood 169 mg/dL (60-115)
--- NOTE | 2023-07-05 11:19 | P.PNIM_ITS ---
Subjective Subjective Date of Service: 07/05/23 Interval History: tolerated solids last night, but now with severe LLQ after breakfast today Physical Exam 2 Vital Signs: Vital Signs: Last Vital Signs Temp 97.1 F 07/05/23 07:45 Pulse 65 07/05/23 07:45 Resp 20 07/05/23 07:45 BP 91/54 L 07/05/23 07:45 Pulse Ox 97 07/05/23 07:45 O2 Del Method Room Air 07/05/23 07:45 BMI result Body Mass Index 21.8 General: AO X 3, in pain Resp: CTA bilateral, no accessory muscles used CVS: S1,S2,RRR GI: soft, LLQ tender, non distended Neuro: motor grossly intact, alert Psych: appropriate affect, appropriate insight Objective Data Active Medications Acetaminophen (Acetaminophen 325 Mg Tablet) 650 mg PO Q6H PRN PRN Reason: Pain, Mild (Pain Scale 1-3) Last Admin: 07/05/23 10:20 Dose: 650 mg Documented By: KIRBY Baclofen (Baclofen 20 Mg Tablet) 20 mg PO BEDTIME [facility] Last Admin: 07/04/23 22:08 Dose: 20 mg Documented By: ARSLAN Bupropion HCl (Bupropion Hcl Xl 300 Mg Tab.Er.24h) 300 mg PO DAILY [facility] Last Admin: 07/05/23 10:20 Dose: 300 mg Documented By: KIRBY Carbamazepine (Carbamazepine 200 Mg Tablet) 200 mg PO BEDTIME [facility] Last Admin: 07/04/23 22:08 Dose: 200 mg Documented By: ARSLAN Cyanocobalamin (Cyanocobalamin (Vitamin B-12) 1,000 Mcg Tablet) 1,000 mcg PO DAILY [facility] Last Admin: 07/05/23 10:19 Dose: 1,000 mcg Documented By: KIRBY Dextrose (Dextrose 50 % 25 Gm/50 Ml Syringe) 25 gm IVPUSH Q15M PRN; Protocol PRN Reason: per Hypoglycemia Standing Ord. Duloxetine HCl (Duloxetine Hcl 30 Mg Capsule.) 30 mg PO DAILY [facility] Last Admin: 07/05/23 10:19 Dose: 30 mg Documented By: KIRBY Duloxetine HCl (Duloxetine Hcl 60 Mg Capsule.) 60 mg PO DAILY [facility] Last Admin: 07/05/23 10:19 Dose: 60 mg Documented By: KIRBY Enoxaparin Sodium (Enoxaparin Sodium 40 Mg/0.4 Ml Syringe) 40 mg SUBCUT Q24H [facility] Last Admin: 07/05/23 10:19 Dose: 40 mg Documented By: KIRBY Finasteride (Finasteride 5 Mg Tablet) 5 mg PO DAILY [facility] Last Admin: 07/05/23 10:20 Dose: 5 mg Documented By: KIRBY Glucose (Glucose Gel 15 Gm Gel..Gram.) 15 gm PO Q15M PRN; Protocol PRN Reason: per Hypoglycemia Standing Ord. Lactated Ringer's (Lr) 1,000 mls @ 100 mls/hr IVCONT .Q10H [facility] Insulin Human Lispro (Insulin Lispro 100 Unit/Ml 3 Ml Vial) 0 unit SUBCUT QIDACHS [facility]; Protocol Last Admin: 07/05/23 10:21 Dose: Not Given Documented By: KIRBY Non-Admin Reason: No Insulin Coverage Lamotrigine (Lamotrigine 100 Mg Tablet) 200 mg PO BID [facility] Last Admin: 07/05/23 10:19 Dose: 200 mg Documented By: KIRBY Lisinopril (Lisinopril 2.5 Mg Tablet) 2.5 mg PO DAILY [facility]; Protocol Last Admin: 07/05/23 10:19 Dose: 2.5 mg Documented By: KIRBY Melatonin (Melatonin 3 Mg Tablet) 6 mg PO BEDTIME PRN PRN Reason: Insomnia Morphine Sulfate (Morphine Sulfate 4 Mg/Ml Cartridge) 4 mg IVPUSH Q4H PRN; Protocol PRN Reason: Pain, Severe (Pain Scale 7-10) Last Admin: 07/05/23 05:28 Dose: 4 mg Documented By: ARSLAN Non-Formulary Medication (Rosuvastatin) 10 mg PO DAILY [facility] Ondansetron HCl (Ondansetron Hcl 4 Mg/2 Ml Vial) 4 mg IVPUSH Q8H PRN PRN Reason: Nausea and Vomiting Last Admin: 07/05/23 10:20 Dose: 4 mg Documented By: KIRBY Prazosin HCl (Prazosin Hcl 1 Mg Capsule) 2 mg PO BEDTIME [facility]; Protocol Last Admin: 07/04/23 22:07 Dose: 2 mg Documented By: ARSLAN Prazosin HCl (Prazosin Hcl 5 Mg Capsule) 5 mg PO BEDTIME [facility]; Protocol Last Admin: 07/04/23 22:07 Dose: 5 mg Documented By: ARSLAN Pregabalin (Pregabalin 150 Mg Capsule) 300 mg PO BID [facility] Last Admin: 07/05/23 10:20 Dose: 300 mg Documented By: KIRBY Quetiapine Fumarate (Quetiapine Fumarate 25 Mg Tablet) 25 mg PO BEDTIME [facility] Last Admin: 07/04/23 22:08 Dose: 25 mg Documented By: ARSLAN Sodium Chloride (0.9 % Sodium Chloride Flush 3 Ml Syringe) 3 ml IVFLUSH QSHIFT [facility] Last Admin: 07/05/23 10:20 Dose: 3 ml Documented By: KIRBY Tamsulosin HCl (Tamsulosin Hcl 0.4 Mg Capsule) 0.4 mg PO BEDTIME [facility] Last Admin: 07/04/23 22:08 Dose: 0.4 mg Documented By: ARSLAN Labs 07/04/23 06:37 07/04/23 06:37 Labs: Laboratory Results - last 24 hr 07/04/23 07/04/23 07/04/23 11:20 15:19 20:13 POC Glucose 149 H 187 H 128 H 07/05/23 07/05/23 07:09 11:00 POC Glucose 127 H 169 H Assessment and Plan (1) Abdominal pain: Status: Acute Plan 53M PMH htn, mood disorder, dm, bph, presented with abd pain Intractable abdominal pain ct with possible ileitits small-bowel follow-through negative not tolerating solids restart iv fluids gi follow up Mood disorder Continue mood stabilizers Hypertension Lisinopril Diabetes Insulin BPH Proscar and Flomax DVT prophylaxis with Lovenox Full code reason for continued hospitalization: awaiting tolerance of solids Quality Stroke Does the patient have a stroke diagnosis?: No VTE Prior VTE?: No VTE Risk Level:: Medical - moderate - high VTE Device Contraindication: N/A - Device Ordered VTE Drug Contraindication: Treatment Not Indicated
[2023-07-05] MEDS: Insulin Lispro 100 UNIT/ML 3 ML VIAL SUBCUT (13:15)
[2023-07-05] MEDS: Lactated Ringers 1,000 ML 100 ML IVCONT ×2 (13:21→20:43)
[2023-07-05 16:15] LABS: Glucose, Whole Blood 83 mg/dL (60-115)
--- NOTE | 2023-07-05 17:09 | PM.EVENT ---
Event Note Date of Service: 07/05/23 Event Note: I was asked by Dr Oliva to evaluate this pt due to an increase in abdominal pain after diet was advanced to solid food. 53 YM admitted to [facility] on 07/02/23 with left sided abdominal pain, nausea, vomiting and diarrhea and was diagnosed with infectious enteritis. Pt denies diarrhea and reports he has been having normal BMs and has been passing gas. CT Abd/pel again demonstrated thickened wall of small bowel in LUQ with some mild dilation without any definite transition point or ileus. SBFT showed normal transit time of contrast material through the small bowel, with contrast present in the colon by 3 hours. Small bowel loops were normal caliber throughout the abdomen and pelvis with normal jejunal and ileal fold patterns . RECOMMENDATIONS: 1. Resume a clear liquid diet x 24 hrs. 2. Can advance to a full liquid diet on 07/07/23 if pt tolerate clear liquids without abdominal pain 3. Check IBD serologies - added to am labs Time Spent With Patient Time: Total time managing care of this patient today ____ minutes.
[2023-07-05 20:29] LABS: Glucose, Whole Blood 140 mg/dL (60-115)
[2023-07-05] MEDS: QUEtiapine Fumarate 25 MG TABLET PO (20:40)
[2023-07-05] MEDS: Prazosin HCL 1 MG CAPSULE 2 MG PO (20:40)
[2023-07-05] MEDS: Prazosin HCL 5 MG CAPSULE PO (20:41)
[2023-07-05] MEDS: Tamsulosin HCL 0.4 MG CAPSULE PO (20:41)
[2023-07-05] MEDS: Baclofen 20 MG TABLET PO (20:41)
[2023-07-05] MEDS: carBAMazepine 200 MG TABLET PO (20:42)
[2023-07-06] MEDS: Morphine Sulfate 4 MG/ML CARTRIDGE IVPUSH ×5 (03:32→23:58)
[2023-07-06 04:00] VITALS: BP 104/55; PULSE 67; RESP 18; TEMP 36.3; O2SAT 97
[2023-07-06 06:05] LABS: Hematocrit 35.1 % (42.0-52.0); Hemoglobin 11.9 g/dl (14.0-18.0); Red Blood Count 3.93 X10*6/uL (4.60-5.80); White Blood Count 3.6 X10*3/uL (4.8-10.8)
[2023-07-06 06:06] LABS: Mean Corpuscular HGB Conc 33.9 g/dl (31.0-36.0); Mean Corpuscular Hemoglobin 30.3 pg (27.0-33.0); Mean Corpuscular Volume 89.3 fL (80.0-98.0); Mean Platelet Volume 10.3 fL (9.4-12.4); Platelet Count 157 X10*3/uL (160-400)
[2023-07-06] MEDS: Lactated Ringers 1,000 ML 100 ML IVCONT ×2 (06:20→17:46)
[2023-07-06 06:33] LABS: Anion Gap 11 (12-20); Blood Urea Nitrogen 6 mg/dL (9-16); C Reactive Protein 0.18 mg/dL (< or = 0.50); Calcium 9.2 mg/dL (8.4-10.2); Carbon Dioxide 32 mmol/L (22-29); Chloride 102 mmol/L (96-108); Creatinine Clr Calc Pharmacy 111.8; Estimated Glomerular Filt Rate > 60; Glucose Fasting 152 mg/dL (60-99); Magnesium 1.9 mg/dL (1.6-2.6); Potassium 3.9 mmol/L (3.3-5.1); Sodium 141 mmol/L (135-145)
[2023-07-06 07:44] LABS: Glucose, Whole Blood 121 mg/dL (60-115)
[2023-07-06 07:53] VITALS: BP 107/67; PULSE 55; RESP 14; TEMP 36.3; O2SAT 98
[2023-07-06] MEDS: DULoxetine HCl 60 MG CAPSULE.DR PO (08:54)
[2023-07-06] MEDS: buPROPion HCl XL 300 MG TAB.ER.24H PO (08:54)
[2023-07-06] MEDS: Finasteride 5 MG TABLET PO (08:54)
[2023-07-06] MEDS: Pregabalin 150 MG CAPSULE 300 MG PO ×2 (08:54→20:55)
[2023-07-06] MEDS: DULoxetine HCl 30 MG CAPSULE.DR PO (08:54)
[2023-07-06] MEDS: Cyanocobalamin (Vitamin B-12) 1,000 MCG TABLET 1000 MCG PO (08:54)
[2023-07-06] MEDS: lamoTRIgine 100 MG TABLET 200 MG PO ×2 (08:54→20:55)
[2023-07-06] MEDS: lisinopriL 2.5 MG TABLET PO (08:54)
--- NOTE | 2023-07-06 10:02 | HO.PM.IMPN ---
Subjective Subjective Date of Service: 07/06/23 Interval History: abd pain Physical Exam Vital Signs: Vital Signs: Last Vital Signs Temp 97.3 F 07/06/23 07:53 Pulse 55 07/06/23 07:53 Resp 14 07/06/23 07:53 BP 107/67 07/06/23 07:53 Pulse Ox 98 07/06/23 07:53 O2 Del Method Room Air 07/06/23 07:53 BMI result Body Mass Index 21.8 General: AO X 3, some discomfort Resp: CTA bilateral, no accessory muscles used CVS: S1,S2,RRR GI: soft, llq tender, non distended Neuro: motor grossly intact, alert Psych: appropriate affect, appropriate insight Objective Data Active Medications Acetaminophen (Acetaminophen 325 Mg Tablet) 650 mg PO Q6H PRN PRN Reason: Pain, Mild (Pain Scale 1-3) Last Admin: 07/05/23 20:42 Dose: 650 mg Documented By: SHREE Baclofen (Baclofen 20 Mg Tablet) 20 mg PO BEDTIME [facility] Last Admin: 07/05/23 20:41 Dose: 20 mg Documented By: SHREE Bupropion HCl (Bupropion Hcl Xl 300 Mg Tab.Er.24h) 300 mg PO DAILY [facility] Last Admin: 07/06/23 08:54 Dose: 300 mg Documented By: PONCE Carbamazepine (Carbamazepine 200 Mg Tablet) 200 mg PO BEDTIME [facility] Last Admin: 07/05/23 20:42 Dose: 200 mg Documented By: SHREE Cyanocobalamin (Cyanocobalamin (Vitamin B-12) 1,000 Mcg Tablet) 1,000 mcg PO DAILY [facility] Last Admin: 07/06/23 08:54 Dose: 1,000 mcg Documented By: PONCE Dextrose (Dextrose 50 % 25 Gm/50 Ml Syringe) 25 gm IVPUSH Q15M PRN; Protocol PRN Reason: per Hypoglycemia Standing Ord. Duloxetine HCl (Duloxetine Hcl 30 Mg Capsule.) 30 mg PO DAILY [facility] Last Admin: 07/06/23 08:54 Dose: 30 mg Documented By: PONCE Duloxetine HCl (Duloxetine Hcl 60 Mg Capsule.) 60 mg PO DAILY [facility] Last Admin: 07/06/23 08:54 Dose: 60 mg Documented By: PONCE Enoxaparin Sodium (Enoxaparin Sodium 40 Mg/0.4 Ml Syringe) 40 mg SUBCUT Q24H [facility] Last Admin: 07/05/23 10:19 Dose: 40 mg Documented By: KIRBY Finasteride (Finasteride 5 Mg Tablet) 5 mg PO DAILY [facility] Last Admin: 07/06/23 08:54 Dose: 5 mg Documented By: PONCE Glucose (Glucose Gel 15 Gm Gel..Gram.) 15 gm PO Q15M PRN; Protocol PRN Reason: per Hypoglycemia Standing Ord. Lactated Ringer's (Lr) 1,000 mls @ 100 mls/hr IVCONT .Q10H [facility] Last Admin: 07/06/23 06:20 Dose: 100 mls/hr Documented By: SHREE Insulin Human Lispro (Insulin Lispro 100 Unit/Ml 3 Ml Vial) 0 unit SUBCUT QIDACHS [facility]; Protocol Last Admin: 07/06/23 08:00 Dose: Not Given Documented By: PONCE Non-Admin Reason: No Insulin Coverage Lamotrigine (Lamotrigine 100 Mg Tablet) 200 mg PO BID [facility] Last Admin: 07/06/23 08:54 Dose: 200 mg Documented By: PONCE Lisinopril (Lisinopril 2.5 Mg Tablet) 2.5 mg PO DAILY [facility]; Protocol Last Admin: 07/06/23 08:54 Dose: 2.5 mg Documented By: PONCE Melatonin (Melatonin 3 Mg Tablet) 6 mg PO BEDTIME PRN PRN Reason: Insomnia Morphine Sulfate (Morphine Sulfate 4 Mg/Ml Cartridge) 4 mg IVPUSH Q4H PRN; Protocol PRN Reason: Pain, Severe (Pain Scale 7-10) Last Admin: 07/06/23 03:32 Dose: 4 mg Documented By: SHREE Non-Formulary Medication (Rosuvastatin) 10 mg PO DAILY [facility] Ondansetron HCl (Ondansetron Hcl 4 Mg/2 Ml Vial) 4 mg IVPUSH Q8H PRN PRN Reason: Nausea and Vomiting Last Admin: 07/05/23 10:20 Dose: 4 mg Documented By: KIRBY Prazosin HCl (Prazosin Hcl 1 Mg Capsule) 2 mg PO BEDTIME [facility]; Protocol Last Admin: 07/05/23 20:40 Dose: 2 mg Documented By: SHREE Prazosin HCl (Prazosin Hcl 5 Mg Capsule) 5 mg PO BEDTIME [facility]; Protocol Last Admin: 07/05/23 20:41 Dose: 5 mg Documented By: SHREE Pregabalin (Pregabalin 150 Mg Capsule) 300 mg PO BID [facility] Last Admin: 07/06/23 08:54 Dose: 300 mg Documented By: PONCE Quetiapine Fumarate (Quetiapine Fumarate 25 Mg Tablet) 25 mg PO BEDTIME [facility] Last Admin: 07/05/23 20:40 Dose: 25 mg Documented By: SHREE Sodium Chloride (0.9 % Sodium Chloride Flush 3 Ml Syringe) 3 ml IVFLUSH QSHIFT [facility] Last Admin: 07/06/23 08:55 Dose: Not Given Documented By: PONCE Non-Admin Reason: IV Running Tamsulosin HCl (Tamsulosin Hcl 0.4 Mg Capsule) 0.4 mg PO BEDTIME [facility] Last Admin: 07/05/23 20:41 Dose: 0.4 mg Documented By: SHREE Labs 07/06/23 05:44 07/06/23 05:44 Labs: Laboratory Results - last 24 hr 07/05/23 07/05/23 07/05/23 11:00 16:07 20:08 MCV MCH MCHC RDW Plt Count MPV Absolute Nucleated RBC Nucleated RBC % (auto) Anion Gap Estim Creat Clear Calc Estimated GFR POC Glucose 169 H 83 140 H Fasting Glucose Calcium Magnesium C-Reactive Protein 07/06/23 07/06/23 05:44 07:39 MCV 89.3 MCH 30.3 MCHC 33.9 RDW 12.0 Plt Count 157 L MPV 10.3 Absolute Nucleated RBC 0.000 Nucleated RBC % (auto) 0.0 Anion Gap 11 L Estim Creat Clear Calc 111.8 Estimated GFR > 60 POC Glucose 121 H Fasting Glucose 152 H Calcium 9.2 Magnesium 1.9 C-Reactive Protein 0.18 Assessment and Plan (1) Abdominal pain: Status: Acute Plan 53M PMH htn, mood disorder, dm, bph, presented with abd pain Intractable abdominal pain ct with possible ileitits small-bowel follow-through negative not tolerating solids, changed back to clears restart iv fluids gi following Mood disorder Continue mood stabilizers Hypertension Lisinopril Diabetes Insulin BPH Proscar and Flomax DVT prophylaxis with Lovenox Full code reason for continued hospitalization: awaiting tolerance of solids Quality Stroke Does the patient have a stroke diagnosis?: No VTE Prior VTE?: No VTE Risk Level:: Medical - moderate - high VTE Device Contraindication: N/A - Device Ordered VTE Drug Contraindication: Treatment Not Indicated
[2023-07-06 11:05] LABS: Glucose, Whole Blood 173 mg/dL (60-115)
[2023-07-06 12:00] VITALS: BP 114/61; PULSE 68; TEMP 36.3; O2SAT 98
[2023-07-06] MEDS: Insulin Lispro 100 UNIT/ML 3 ML VIAL SUBCUT (13:21)
[2023-07-06] MEDS: Enoxaparin Sodium 40 MG/0.4 ML SYRINGE SUBCUT (13:22)
[2023-07-06 15:37] VITALS: BP 118/72; PULSE 62; RESP 16; TEMP 36.5; O2SAT 99
[2023-07-06 16:06] LABS: Glucose, Whole Blood 111 mg/dL (60-115)
[2023-07-06 19:22] VITALS: BP 125/74; PULSE 66; RESP 19; TEMP 36.6; O2SAT 98
[2023-07-06 20:02] LABS: Glucose, Whole Blood 133 mg/dL (60-115)
[2023-07-06] MEDS: QUEtiapine Fumarate 25 MG TABLET PO (20:55)
[2023-07-06] MEDS: Prazosin HCL 5 MG CAPSULE PO (20:55)
[2023-07-06] MEDS: Prazosin HCL 1 MG CAPSULE 2 MG PO (20:55)
[2023-07-06] MEDS: 0.9 % Sodium Chloride Flush 3 ML SYRINGE IVFLUSH (20:56)
[2023-07-06] MEDS: Baclofen 20 MG TABLET PO (20:56)
[2023-07-06] MEDS: carBAMazepine 200 MG TABLET PO (20:56)
[2023-07-06] MEDS: Tamsulosin HCL 0.4 MG CAPSULE PO (20:56)
[2023-07-06 23:21] VITALS: BP 109/71; PULSE 76; RESP 16; TEMP 36.7; O2SAT 98
[2023-07-07] VITALS (7 sets, daily range): BP systolic 110–156; BP diastolic 65–84; PULSE 56–78; RESP 17–20; TEMP 36.1–36.4; O2SAT 97–100
[2023-07-07] MEDS: Lactated Ringers 1,000 ML 100 ML IVCONT ×3 (03:52→20:25)
[2023-07-07] MEDS: Morphine Sulfate 4 MG/ML CARTRIDGE IVPUSH ×5 (03:58→20:28)
[2023-07-07 05:45] LABS: Hematocrit 32.3 % (42.0-52.0); Hemoglobin 10.9 g/dl (14.0-18.0); Mean Corpuscular HGB Conc 33.7 g/dl (31.0-36.0); Mean Corpuscular Hemoglobin 30.2 pg (27.0-33.0); Mean Corpuscular Volume 89.5 fL (80.0-98.0); Mean Platelet Volume 10.6 fL (9.4-12.4); Platelet Count 152 X10*3/uL (160-400); Red Blood Count 3.61 X10*6/uL (4.60-5.80); Red Cell Distribution Width 12.1 % (11.0-16.0); White Blood Count 3.4 X10*3/uL (4.8-10.8)
[2023-07-07 06:09] LABS: Anion Gap 9 (12-20); Blood Urea Nitrogen 4 mg/dL (9-16); Calcium 8.8 mg/dL (8.4-10.2); Carbon Dioxide 32 mmol/L (22-29); Chloride 105 mmol/L (96-108); Creatinine Clr Calc Pharmacy 121.1; Estimated Glomerular Filt Rate > 60; Glucose Fasting 120 mg/dL (60-99); Potassium 3.8 mmol/L (3.3-5.1); Sodium 142 mmol/L (135-145)
[2023-07-07 08:00] LABS: Glucose, Whole Blood 122 mg/dL (60-115)
[2023-07-07] MEDS: Pregabalin 150 MG CAPSULE 300 MG PO ×2 (08:28→20:27)
[2023-07-07] MEDS: lamoTRIgine 100 MG TABLET 200 MG PO ×2 (08:28→20:25)
[2023-07-07] MEDS: Cyanocobalamin (Vitamin B-12) 1,000 MCG TABLET 1000 MCG PO (08:28)
[2023-07-07] MEDS: buPROPion HCl XL 300 MG TAB.ER.24H PO (08:28)
[2023-07-07] MEDS: DULoxetine HCl 30 MG CAPSULE.DR PO (08:28)
[2023-07-07] MEDS: lisinopriL 2.5 MG TABLET PO (08:28)
[2023-07-07] MEDS: Finasteride 5 MG TABLET PO (08:28)
[2023-07-07] MEDS: DULoxetine HCl 60 MG CAPSULE.DR PO (08:28)
--- NOTE | 2023-07-07 09:36 | P.PNIM_ITS ---
Subjective Subjective Date of Service: 07/07/23 Interval History: still wit hpain, wants to advance to full lliquids Physical Exam 2 Vital Signs: Vital Signs: Last Vital Signs Temp 97.5 F 07/07/23 07:41 Pulse 56 07/07/23 07:41 Resp 20 07/07/23 07:41 BP 129/74 07/07/23 07:41 Pulse Ox 99 07/07/23 07:41 O2 Del Method Room Air 07/07/23 07:41 BMI result Body Mass Index 21.8 General: AO X 3, no acute distress Resp: CTA bilateral, no accessory muscles used CVS: S1,S2,RRR GI: soft, non tender, non distended Neuro: motor grossly intact, alert Psych: appropriate affect, appropriate insight Objective Data Active Medications Acetaminophen (Acetaminophen 325 Mg Tablet) 650 mg PO Q6H PRN PRN Reason: Pain, Mild (Pain Scale 1-3) Last Admin: 07/05/23 20:42 Dose: 650 mg Documented By: SHREE Baclofen (Baclofen 20 Mg Tablet) 20 mg PO BEDTIME [facility] Last Admin: 07/06/23 20:56 Dose: 20 mg Documented By: JIMENA Bupropion HCl (Bupropion Hcl Xl 300 Mg Tab.Er.24h) 300 mg PO DAILY [facility] Last Admin: 07/07/23 08:28 Dose: 300 mg Documented By: JYOTI Carbamazepine (Carbamazepine 200 Mg Tablet) 200 mg PO BEDTIME [facility] Last Admin: 07/06/23 20:56 Dose: 200 mg Documented By: JIMENA Cyanocobalamin (Cyanocobalamin (Vitamin B-12) 1,000 Mcg Tablet) 1,000 mcg PO DAILY [facility] Last Admin: 07/07/23 08:28 Dose: 1,000 mcg Documented By: JYOTI Dextrose (Dextrose 50 % 25 Gm/50 Ml Syringe) 25 gm IVPUSH Q15M PRN; Protocol PRN Reason: per Hypoglycemia Standing Ord. Duloxetine HCl (Duloxetine Hcl 30 Mg Capsule.) 30 mg PO DAILY [facility] Last Admin: 07/07/23 08:28 Dose: 30 mg Documented By: JYOTI Duloxetine HCl (Duloxetine Hcl 60 Mg Capsule.) 60 mg PO DAILY [facility] Last Admin: 07/07/23 08:28 Dose: 60 mg Documented By: JYOTI Enoxaparin Sodium (Enoxaparin Sodium 40 Mg/0.4 Ml Syringe) 40 mg SUBCUT Q24H [facility] Last Admin: 07/06/23 13:22 Dose: 40 mg Documented By: PONCE Finasteride (Finasteride 5 Mg Tablet) 5 mg PO DAILY [facility] Last Admin: 07/07/23 08:28 Dose: 5 mg Documented By: JYOTI Glucose (Glucose Gel 15 Gm Gel..Gram.) 15 gm PO Q15M PRN; Protocol PRN Reason: per Hypoglycemia Standing Ord. Lactated Ringer's (Lr) 1,000 mls @ 100 mls/hr IVCONT .Q10H [facility] Last Admin: 07/07/23 03:52 Dose: 100 mls/hr Documented By: JIMENA Insulin Human Lispro (Insulin Lispro 100 Unit/Ml 3 Ml Vial) 0 unit SUBCUT QIDACHS [facility]; Protocol Last Admin: 07/07/23 08:06 Dose: Not Given Documented By: JYOTI Non-Admin Reason: No Insulin Coverage Lamotrigine (Lamotrigine 100 Mg Tablet) 200 mg PO BID [facility] Last Admin: 07/07/23 08:28 Dose: 200 mg Documented By: JYOTI Lisinopril (Lisinopril 2.5 Mg Tablet) 2.5 mg PO DAILY [facility]; Protocol Last Admin: 07/07/23 08:28 Dose: 2.5 mg Documented By: JYOTI Melatonin (Melatonin 3 Mg Tablet) 6 mg PO BEDTIME PRN PRN Reason: Insomnia Morphine Sulfate (Morphine Sulfate 4 Mg/Ml Cartridge) 4 mg IVPUSH Q4H PRN; Protocol PRN Reason: Pain, Severe (Pain Scale 7-10) Last Admin: 07/07/23 08:26 Dose: 4 mg Documented By: JYOTI Non-Formulary Medication (Rosuvastatin) 10 mg PO DAILY [facility] Ondansetron HCl (Ondansetron Hcl 4 Mg/2 Ml Vial) 4 mg IVPUSH Q8H PRN PRN Reason: Nausea and Vomiting Last Admin: 07/05/23 10:20 Dose: 4 mg Documented By: KIRBY Prazosin HCl (Prazosin Hcl 1 Mg Capsule) 2 mg PO BEDTIME [facility]; Protocol Last Admin: 07/06/23 20:55 Dose: 2 mg Documented By: JIMENA Prazosin HCl (Prazosin Hcl 5 Mg Capsule) 5 mg PO BEDTIME [facility]; Protocol Last Admin: 07/06/23 20:55 Dose: 5 mg Documented By: JIMENA Pregabalin (Pregabalin 150 Mg Capsule) 300 mg PO BID [facility] Last Admin: 07/07/23 08:28 Dose: 300 mg Documented By: JYOTI Quetiapine Fumarate (Quetiapine Fumarate 25 Mg Tablet) 25 mg PO BEDTIME [facility] Last Admin: 07/06/23 20:55 Dose: 25 mg Documented By: JIMENA Sodium Chloride (0.9 % Sodium Chloride Flush 3 Ml Syringe) 3 ml IVFLUSH QSHIFT [facility] Last Admin: 07/07/23 07:16 Dose: Not Given Documented By: JYOTI Non-Admin Reason: IV Running Tamsulosin HCl (Tamsulosin Hcl 0.4 Mg Capsule) 0.4 mg PO BEDTIME [facility] Last Admin: 07/06/23 20:56 Dose: 0.4 mg Documented By: JIMENA Labs 07/07/23 05:18 07/07/23 05:18 Labs: Laboratory Results - last 24 hr 07/06/23 07/06/23 07/06/23 11:00 15:35 19:52 MCV MCH MCHC RDW Plt Count MPV Absolute Nucleated RBC Nucleated RBC % (auto) Anion Gap Estim Creat Clear Calc Estimated GFR POC Glucose 173 H 111 133 H Fasting Glucose Calcium 07/07/23 07/07/23 05:18 07:43 MCV 89.5 MCH 30.2 MCHC 33.7 RDW 12.1 Plt Count 152 L MPV 10.6 Absolute Nucleated RBC 0.000 Nucleated RBC % (auto) 0.0 Anion Gap 9 L Estim Creat Clear Calc 121.1 Estimated GFR > 60 POC Glucose 122 H Fasting Glucose 120 H Calcium 8.8 Assessment and Plan (1) Abdominal pain: Status: Acute Plan 53M PMH htn, mood disorder, dm, bph, presented with abd pain Intractable abdominal pain ct with possible ileitits small-bowel follow-through negative advance to full liquids gi following Mood disorder Continue mood stabilizers Hypertension Lisinopril Diabetes Insulin BPH Proscar and Flomax DVT prophylaxis with Lovenox Full code reason for continued hospitalization: awaiting tolerance of solids Quality Stroke Does the patient have a stroke diagnosis?: No VTE Prior VTE?: No VTE Risk Level:: Medical - moderate - high VTE Device Contraindication: N/A - Device Ordered VTE Drug Contraindication: Treatment Not Indicated
[2023-07-07 11:32] LABS: Glucose, Whole Blood 159 mg/dL (60-115)
[2023-07-07] MEDS: Enoxaparin Sodium 40 MG/0.4 ML SYRINGE SUBCUT (12:08)
[2023-07-07] MEDS: Insulin Lispro 100 UNIT/ML 3 ML VIAL SUBCUT ×2 (12:08→20:27)
[2023-07-07] MEDS: Acetaminophen 325 MG TABLET 650 MG PO (16:04)
[2023-07-07 16:56] LABS: Glucose, Whole Blood 125 mg/dL (60-115)
--- NOTE | 2023-07-07 17:47 | PC.NURSE ---
Transfer from [facility]. Assumed care of patient at approximately 1720. Patient A&Ox4, calm and cooperative. Ambulated to rest room with standby assist. Reporting left lower abdominal pain, 05/05. Medicated with PRN morphine per patient request. Vital signs obtained. BP 156/84, heart rate 59. No signs or symptoms of distress. Patient resting in bed with family at bedside. Call hoover within reach, bed alarm on.
[2023-07-07] MEDS: Prazosin HCL 5 MG CAPSULE PO (20:26)
[2023-07-07] MEDS: Baclofen 20 MG TABLET PO (20:26)
[2023-07-07] MEDS: Prazosin HCL 1 MG CAPSULE 2 MG PO (20:26)
[2023-07-07] MEDS: carBAMazepine 200 MG TABLET PO (20:26)
[2023-07-07] MEDS: Tamsulosin HCL 0.4 MG CAPSULE PO (20:26)
[2023-07-07] MEDS: QUEtiapine Fumarate 25 MG TABLET PO (20:27)
[2023-07-08] VITALS (7 sets, daily range): BP systolic 102–131; BP diastolic 55–77; PULSE 61–78; RESP 14–18; TEMP 36.1–36.6; O2SAT 96–100
[2023-07-08] MEDS: Morphine Sulfate 4 MG/ML CARTRIDGE IVPUSH ×7 (00:05→23:24)
[2023-07-08 00:47] LABS: Glucose, Whole Blood 171 mg/dL (60-115)
[2023-07-08] MEDS: Lactated Ringers 1,000 ML 100 ML IVCONT ×2 (03:58→11:59)
[2023-07-08 07:36] LABS: Glucose, Whole Blood 129 mg/dL (60-115)
[2023-07-08] MEDS: Pregabalin 150 MG CAPSULE 300 MG PO ×2 (07:56→21:06)
[2023-07-08] MEDS: Finasteride 5 MG TABLET PO (07:56)
[2023-07-08] MEDS: DULoxetine HCl 60 MG CAPSULE.DR PO (07:57)
[2023-07-08] MEDS: DULoxetine HCl 30 MG CAPSULE.DR PO (07:57)
[2023-07-08] MEDS: buPROPion HCl XL 300 MG TAB.ER.24H PO (07:57)
[2023-07-08] MEDS: lamoTRIgine 100 MG TABLET 200 MG PO ×2 (07:57→21:05)
[2023-07-08] MEDS: lisinopriL 2.5 MG TABLET PO (07:57)
[2023-07-08] MEDS: Cyanocobalamin (Vitamin B-12) 1,000 MCG TABLET 1000 MCG PO (07:58)
--- NOTE | 2023-07-08 09:18 | P.PNIM_ITS ---
Subjective Subjective Date of Service: 07/08/23 Interval History: still with pain, not ready for solids Physical Exam 2 Vital Signs: Vital Signs: Last Vital Signs Temp 97.3 F 07/08/23 07:10 Pulse 61 07/08/23 07:10 Resp 18 07/08/23 07:10 BP 131/71 07/08/23 07:10 Pulse Ox 99 07/08/23 07:10 O2 Del Method Room Air 07/08/23 07:10 BMI result Body Mass Index 21.8 General: AO X 3, no acute distress Resp: CTA bilateral, no accessory muscles used CVS: S1,S2,RRR GI: soft, non tender, non distended Neuro: motor grossly intact, alert Psych: appropriate affect, appropriate insight Objective Data Active Medications Acetaminophen (Acetaminophen 325 Mg Tablet) 650 mg PO Q6H PRN PRN Reason: Pain, Mild (Pain Scale 1-3) Last Admin: 07/07/23 16:04 Dose: 650 mg Documented By: JYOTI Baclofen (Baclofen 20 Mg Tablet) 20 mg PO BEDTIME [facility] Last Admin: 07/07/23 20:26 Dose: 20 mg Documented By: MANOJ Bupropion HCl (Bupropion Hcl Xl 300 Mg Tab.Er.24h) 300 mg PO DAILY [facility] Last Admin: 07/08/23 07:57 Dose: 300 mg Documented By: CHLOE Carbamazepine (Carbamazepine 200 Mg Tablet) 200 mg PO BEDTIME [facility] Last Admin: 07/07/23 20:26 Dose: 200 mg Documented By: MANOJ Cyanocobalamin (Cyanocobalamin (Vitamin B-12) 1,000 Mcg Tablet) 1,000 mcg PO DAILY [facility] Last Admin: 07/08/23 07:58 Dose: 1,000 mcg Documented By: CHLOE Dextrose (Dextrose 50 % 25 Gm/50 Ml Syringe) 25 gm IVPUSH Q15M PRN; Protocol PRN Reason: per Hypoglycemia Standing Ord. Duloxetine HCl (Duloxetine Hcl 30 Mg Capsule.) 30 mg PO DAILY [facility] Last Admin: 07/08/23 07:57 Dose: 30 mg Documented By: CHLOE Duloxetine HCl (Duloxetine Hcl 60 Mg Capsule.) 60 mg PO DAILY [facility] Last Admin: 07/08/23 07:57 Dose: 60 mg Documented By: CHLOE Enoxaparin Sodium (Enoxaparin Sodium 40 Mg/0.4 Ml Syringe) 40 mg SUBCUT Q24H [facility] Last Admin: 07/07/23 12:08 Dose: 40 mg Documented By: JYOTI Finasteride (Finasteride 5 Mg Tablet) 5 mg PO DAILY [facility] Last Admin: 07/08/23 07:56 Dose: 5 mg Documented By: CHLOE Glucose (Glucose Gel 15 Gm Gel..Gram.) 15 gm PO Q15M PRN; Protocol PRN Reason: per Hypoglycemia Standing Ord. Lactated Ringer's (Lr) 1,000 mls @ 100 mls/hr IVCONT .Q10H [facility] Last Admin: 07/08/23 03:58 Dose: 100 mls/hr Documented By: MANOJ Insulin Human Lispro (Insulin Lispro 100 Unit/Ml 3 Ml Vial) 0 unit SUBCUT QIDACHS [facility]; Protocol Last Admin: 07/08/23 07:43 Dose: Not Given Documented By: CHLOE Non-Admin Reason: No Insulin Coverage Lamotrigine (Lamotrigine 100 Mg Tablet) 200 mg PO BID [facility] Last Admin: 07/08/23 07:57 Dose: 200 mg Documented By: CHLOE Lisinopril (Lisinopril 2.5 Mg Tablet) 2.5 mg PO DAILY [facility]; Protocol Last Admin: 07/08/23 07:57 Dose: 2.5 mg Documented By: CHLOE Melatonin (Melatonin 3 Mg Tablet) 6 mg PO BEDTIME PRN PRN Reason: Insomnia Morphine Sulfate (Morphine Sulfate 4 Mg/Ml Cartridge) 4 mg IVPUSH Q2H PRN; Protocol PRN Reason: Pain, Severe (Pain Scale 7-10) Non-Formulary Medication (Rosuvastatin) 10 mg PO DAILY [facility] Ondansetron HCl (Ondansetron Hcl 4 Mg/2 Ml Vial) 4 mg IVPUSH Q8H PRN PRN Reason: Nausea and Vomiting Last Admin: 07/05/23 10:20 Dose: 4 mg Documented By: KIRBY Prazosin HCl (Prazosin Hcl 1 Mg Capsule) 2 mg PO BEDTIME [facility]; Protocol Last Admin: 07/07/23 20:26 Dose: 2 mg Documented By: MANOJ Prazosin HCl (Prazosin Hcl 5 Mg Capsule) 5 mg PO BEDTIME [facility]; Protocol Last Admin: 07/07/23 20:26 Dose: 5 mg Documented By: MANOJ Pregabalin (Pregabalin 150 Mg Capsule) 300 mg PO BID [facility] Last Admin: 07/08/23 07:56 Dose: 300 mg Documented By: CHLOE Quetiapine Fumarate (Quetiapine Fumarate 25 Mg Tablet) 25 mg PO BEDTIME [facility] Last Admin: 07/07/23 20:27 Dose: 25 mg Documented By: MANOJ Sodium Chloride (0.9 % Sodium Chloride Flush 3 Ml Syringe) 3 ml IVFLUSH QSHIFT [facility] Last Admin: 07/08/23 07:59 Dose: Not Given Documented By: CHLOE Non-Admin Reason: IV Running Tamsulosin HCl (Tamsulosin Hcl 0.4 Mg Capsule) 0.4 mg PO BEDTIME [facility] Last Admin: 07/07/23 20:26 Dose: 0.4 mg Documented By: MANOJ Labs 07/07/23 05:18 07/07/23 05:18 Labs: Laboratory Results - last 24 hr 07/07/23 07/07/23 07/07/23 11:20 16:51 19:47 POC Glucose 159 H 125 H 171 H 07/08/23 07:22 POC Glucose 129 H Assessment and Plan (1) Abdominal pain: Status: Acute Plan 53M PMH htn, mood disorder, dm, bph, presented with abd pain Intractable abdominal pain ct with possible ileitits small-bowel follow-through negative advanced to full liquids, not ready for solids gi following Mood disorder Continue mood stabilizers Hypertension Lisinopril Diabetes Insulin BPH Proscar and Flomax DVT prophylaxis with Lovenox Full code reason for continued hospitalization: awaiting tolerance of solids Quality Stroke Does the patient have a stroke diagnosis?: No VTE Prior VTE?: No VTE Risk Level:: Medical - moderate - high VTE Device Contraindication: N/A - Device Ordered VTE Drug Contraindication: Treatment Not Indicated
--- NOTE | 2023-07-08 09:19 | P.PNGI_ITS ---
Subjective Subjective Date of Service: 07/08/23 Interval History: Late entry for 07/08/23. Seen and evaluated at bedside. present as well. Appears comfortable. Tolerating diet but notices pain gets more pronounced after - no nausea, vomiting or diarrhea. Critical Care Time (minutes): 0 Physical Exam 2 Vital Signs: Vital Signs: Last Vital Signs Temp 97.3 F 07/08/23 07:10 Pulse 61 07/08/23 07:10 Resp 18 07/08/23 07:10 BP 131/71 07/08/23 07:10 Pulse Ox 99 07/08/23 07:10 O2 Del Method Room Air 07/08/23 07:10 BMI result Body Mass Index 21.8 Gen appear: nontoxic appearing abd: soft, mildly tender in LLQ Objective Data Labs 07/09/23 05:26 07/09/23 05:26 Labs: Laboratory Results - last 24 hr 07/08/23 07/08/23 07/08/23 10:57 16:17 20:23 WBC RBC Hgb Hct MCV MCH MCHC RDW Plt Count MPV Absolute Nucleated RBC Nucleated RBC % (auto) Sodium Potassium Chloride Carbon Dioxide Anion Gap BUN Creatinine Estim Creat Clear Calc Estimated GFR POC Glucose 262 H 112 197 H Fasting Glucose Calcium 07/09/23 07/09/23 05:26 07:27 WBC 4.0 L RBC 3.87 L Hgb 11.8 L Hct 35.3 L MCV 91.2 MCH 30.5 MCHC 33.4 RDW 12.2 Plt Count 160 MPV 10.9 Absolute Nucleated RBC 0.000 Nucleated RBC % (auto) 0.0 Sodium 143 Potassium 4.4 Chloride 102 Carbon Dioxide 35 H Anion Gap 10 L BUN 5 L Creatinine 0.82 Estim Creat Clear Calc 106.3 Estimated GFR > 60 POC Glucose 124 H Fasting Glucose 119 H Calcium 9.5 D Procedures Date of Service Date of Service: 07/09/23 Progress Note: A&P Assessment and plan (1) Abdominal pain: Status: Acute (2) Sacroiliitis: Status: Acute (3) Anal fissure: Status: Acute Plan SBFT normal. Abd exam benign. Plan: - Advance diet as tolerated - Fecal calpro and IBD serology pending that can be followed up outpt Time Spent With Patient Time: Total time managing care of this patient today ____ minutes. Quality Stroke Does the patient have a stroke diagnosis?: No VTE Prior VTE?: No VTE Risk Level:: Medical - moderate - high VTE Device Contraindication: N/A - Device Ordered VTE Drug Contraindication: Treatment Not Indicated
[2023-07-08 11:03] LABS: Glucose, Whole Blood 262 mg/dL (60-115)
[2023-07-08] MEDS: Insulin Lispro 100 UNIT/ML 3 ML VIAL SUBCUT ×2 (11:57→21:07)
[2023-07-08] MEDS: Enoxaparin Sodium 40 MG/0.4 ML SYRINGE SUBCUT (11:57)
[2023-07-08 16:21] LABS: Glucose, Whole Blood 112 mg/dL (60-115)
[2023-07-08] MEDS: 0.9 % Sodium Chloride Flush 3 ML SYRINGE IVFLUSH (19:35)
[2023-07-08 20:28] LABS: Glucose, Whole Blood 197 mg/dL (60-115)
[2023-07-08] MEDS: Tamsulosin HCL 0.4 MG CAPSULE PO (21:05)
[2023-07-08] MEDS: QUEtiapine Fumarate 25 MG TABLET PO (21:05)
[2023-07-08] MEDS: carBAMazepine 200 MG TABLET PO (21:05)
[2023-07-08] MEDS: Baclofen 20 MG TABLET PO (21:05)
[2023-07-08] MEDS: Prazosin HCL 1 MG CAPSULE 2 MG PO (21:05)
[2023-07-08] MEDS: Prazosin HCL 5 MG CAPSULE PO (21:05)
[2023-07-08] MEDS: Acetaminophen 325 MG TABLET 650 MG PO (21:06)
[2023-07-08] MEDS: Melatonin 3 MG TABLET 6 MG PO (21:06)
[2023-07-09] VITALS (7 sets, daily range): BP systolic 90–137; BP diastolic 50–86; PULSE 60–78; RESP 16–19; TEMP 36.2–36.6; O2SAT 96–100
[2023-07-09] MEDS: Lactated Ringers 1,000 ML 100 ML IVCONT ×2 (05:00→15:03)
[2023-07-09 06:49] LABS: Hematocrit 35.3 % (42.0-52.0); Hemoglobin 11.8 g/dl (14.0-18.0); Mean Corpuscular HGB Conc 33.4 g/dl (31.0-36.0); Mean Corpuscular Hemoglobin 30.5 pg (27.0-33.0); Mean Corpuscular Volume 91.2 fL (80.0-98.0); Mean Platelet Volume 10.9 fL (9.4-12.4); Platelet Count 160 X10*3/uL (160-400); Red Blood Count 3.87 X10*6/uL (4.60-5.80); Red Cell Distribution Width 12.2 % (11.0-16.0)
[2023-07-09 07:05] LABS: Anion Gap 10 (12-20); Blood Urea Nitrogen 5 mg/dL (9-16); Calcium 9.5 mg/dL (8.4-10.2); Carbon Dioxide 35 mmol/L (22-29); Chloride 102 mmol/L (96-108); Creatinine Clr Calc Pharmacy 106.3; Estimated Glomerular Filt Rate > 60; Glucose Fasting 119 mg/dL (60-99); Potassium 4.4 mmol/L (3.3-5.1); Sodium 143 mmol/L (135-145)
[2023-07-09 07:31] LABS: Glucose, Whole Blood 124 mg/dL (60-115)
[2023-07-09] MEDS: 0.9 % Sodium Chloride Flush 3 ML SYRINGE IVFLUSH (08:29)
[2023-07-09] MEDS: DULoxetine HCl 30 MG CAPSULE.DR PO (08:29)
[2023-07-09] MEDS: Pregabalin 150 MG CAPSULE 300 MG PO ×2 (08:29→20:47)
[2023-07-09] MEDS: Finasteride 5 MG TABLET PO (08:29)
[2023-07-09] MEDS: buPROPion HCl XL 300 MG TAB.ER.24H PO (08:29)
[2023-07-09] MEDS: DULoxetine HCl 60 MG CAPSULE.DR PO (08:29)
[2023-07-09] MEDS: lamoTRIgine 100 MG TABLET 200 MG PO ×2 (08:29→20:46)
[2023-07-09] MEDS: lisinopriL 2.5 MG TABLET PO (08:29)
[2023-07-09] MEDS: Cyanocobalamin (Vitamin B-12) 1,000 MCG TABLET 1000 MCG PO (08:29)
[2023-07-09] MEDS: Morphine Sulfate 4 MG/ML CARTRIDGE IVPUSH ×4 (08:29→20:47)
--- NOTE | 2023-07-09 09:24 | P.PNIM_ITS ---
Subjective Subjective Date of Service: 07/09/23 Interval History: still with pain, but ready to advance to solids Physical Exam 2 Vital Signs: Vital Signs: Last Vital Signs Temp 97.6 F 07/09/23 07:05 Pulse 66 07/09/23 07:05 Resp 19 07/09/23 08:29 BP 104/61 07/09/23 07:05 Pulse Ox 96 07/09/23 07:05 O2 Del Method Room Air 07/09/23 07:05 BMI result Body Mass Index 21.8 General: AO X 3, no acute distress Resp: CTA bilateral, no accessory muscles used CVS: S1,S2,RRR GI: soft, non tender, non distended Neuro: motor grossly intact, alert Psych: appropriate affect, appropriate insight Objective Data Active Medications Acetaminophen (Acetaminophen 325 Mg Tablet) 650 mg PO Q6H PRN PRN Reason: Pain, Mild (Pain Scale 1-3) Last Admin: 07/08/23 21:06 Dose: 650 mg Documented By: SANDEE Baclofen (Baclofen 20 Mg Tablet) 20 mg PO BEDTIME [facility] Last Admin: 07/08/23 21:05 Dose: 20 mg Documented By: SANDEE Bupropion HCl (Bupropion Hcl Xl 300 Mg Tab.Er.24h) 300 mg PO DAILY [facility] Last Admin: 07/09/23 08:29 Dose: 300 mg Documented By: COTEMA Carbamazepine (Carbamazepine 200 Mg Tablet) 200 mg PO BEDTIME [facility] Last Admin: 07/08/23 21:05 Dose: 200 mg Documented By: DAVIDB Cyanocobalamin (Cyanocobalamin (Vitamin B-12) 1,000 Mcg Tablet) 1,000 mcg PO DAILY [facility] Last Admin: 07/09/23 08:29 Dose: 1,000 mcg Documented By: COTEMA Dextrose (Dextrose 50 % 25 Gm/50 Ml Syringe) 25 gm IVPUSH Q15M PRN; Protocol PRN Reason: per Hypoglycemia Standing Ord. Duloxetine HCl (Duloxetine Hcl 30 Mg Capsule.) 30 mg PO DAILY [facility] Last Admin: 07/09/23 08:29 Dose: 30 mg Documented By: COTEMA Duloxetine HCl (Duloxetine Hcl 60 Mg Capsule.) 60 mg PO DAILY [facility] Last Admin: 07/09/23 08:29 Dose: 60 mg Documented By: HO.COTEMA Enoxaparin Sodium (Enoxaparin Sodium 40 Mg/0.4 Ml Syringe) 40 mg SUBCUT Q24H [facility] Last Admin: 07/08/23 11:57 Dose: 40 mg Documented By: CHLOE Finasteride (Finasteride 5 Mg Tablet) 5 mg PO DAILY [facility] Last Admin: 07/09/23 08:29 Dose: 5 mg Documented By: JAIMIE Glucose (Glucose Gel 15 Gm Gel..Gram.) 15 gm PO Q15M PRN; Protocol PRN Reason: per Hypoglycemia Standing Ord. Lactated Ringer's (Lr) 1,000 mls @ 100 mls/hr IVCONT .Q10H [facility] Last Admin: 07/09/23 05:00 Dose: 100 mls/hr Documented By: SANDEE Insulin Human Lispro (Insulin Lispro 100 Unit/Ml 3 Ml Vial) 0 unit SUBCUT QIDACHS [facility]; Protocol Last Admin: 07/09/23 07:34 Dose: Not Given Documented By: JAIMIE Non-Admin Reason: No Insulin Coverage Lamotrigine (Lamotrigine 100 Mg Tablet) 200 mg PO BID [facility] Last Admin: 07/09/23 08:29 Dose: 200 mg Documented By: JAIMIE Lisinopril (Lisinopril 2.5 Mg Tablet) 2.5 mg PO DAILY [facility]; Protocol Last Admin: 07/09/23 08:29 Dose: 2.5 mg Documented By: JAIMIE Melatonin (Melatonin 3 Mg Tablet) 6 mg PO BEDTIME PRN PRN Reason: Insomnia Last Admin: 07/08/23 21:06 Dose: 6 mg Documented By: SANDEE Morphine Sulfate (Morphine Sulfate 4 Mg/Ml Cartridge) 4 mg IVPUSH Q2H PRN; Protocol PRN Reason: Pain, Severe (Pain Scale 7-10) Last Admin: 07/09/23 08:29 Dose: 4 mg Documented By: JAIMIE Non-Formulary Medication (Rosuvastatin) 10 mg PO DAILY [facility] Ondansetron HCl (Ondansetron Hcl 4 Mg/2 Ml Vial) 4 mg IVPUSH Q8H PRN PRN Reason: Nausea and Vomiting Last Admin: 07/05/23 10:20 Dose: 4 mg Documented By: KIRBY Prazosin HCl (Prazosin Hcl 1 Mg Capsule) 2 mg PO BEDTIME [facility]; Protocol Last Admin: 07/08/23 21:05 Dose: 2 mg Documented By: SANDEE Prazosin HCl (Prazosin Hcl 5 Mg Capsule) 5 mg PO BEDTIME [facility]; Protocol Last Admin: 07/08/23 21:05 Dose: 5 mg Documented By: SANDEE Pregabalin (Pregabalin 150 Mg Capsule) 300 mg PO BID [facility] Last Admin: 07/09/23 08:29 Dose: 300 mg Documented By: JAIMIE Quetiapine Fumarate (Quetiapine Fumarate 25 Mg Tablet) 25 mg PO BEDTIME [facility] Last Admin: 07/08/23 21:05 Dose: 25 mg Documented By: SANDEE Sodium Chloride (0.9 % Sodium Chloride Flush 3 Ml Syringe) 3 ml IVFLUSH QSHIFT [facility] Last Admin: 07/09/23 08:29 Dose: 3 ml Documented By: JAIMIE Tamsulosin HCl (Tamsulosin Hcl 0.4 Mg Capsule) 0.4 mg PO BEDTIME [facility] Last Admin: 07/08/23 21:05 Dose: 0.4 mg Documented By: SANDEE Labs 07/09/23 05:26 07/09/23 05:26 Labs: Laboratory Results - last 24 hr 07/08/23 07/08/23 07/08/23 10:57 16:17 20:23 MCV MCH MCHC RDW Plt Count MPV Absolute Nucleated RBC Nucleated RBC % (auto) Anion Gap Estim Creat Clear Calc Estimated GFR POC Glucose 262 H 112 197 H Fasting Glucose Calcium 07/09/23 07/09/23 05:26 07:27 MCV 91.2 MCH 30.5 MCHC 33.4 RDW 12.2 Plt Count 160 MPV 10.9 Absolute Nucleated RBC 0.000 Nucleated RBC % (auto) 0.0 Anion Gap 10 L Estim Creat Clear Calc 106.3 Estimated GFR > 60 POC Glucose 124 H Fasting Glucose 119 H Calcium 9.5 D Assessment and Plan (1) Abdominal pain: Status: Acute Plan 53M PMH htn, mood disorder, dm, bph, presented with abd pain Intractable abdominal pain ct with possible ileitits small-bowel follow-through negative advance to solids gi following Mood disorder Continue mood stabilizers Hypertension Lisinopril Diabetes Insulin BPH Proscar and Flomax DVT prophylaxis with Lovenox Full code reason for continued hospitalization: awaiting tolerance of solids Quality Stroke Does the patient have a stroke diagnosis?: No VTE Prior VTE?: No VTE Risk Level:: Medical - moderate - high VTE Device Contraindication: N/A - Device Ordered VTE Drug Contraindication: Treatment Not Indicated
[2023-07-09 11:22] LABS: Glucose, Whole Blood 264 mg/dL (60-115)
[2023-07-09] MEDS: Acetaminophen 325 MG TABLET 650 MG PO (11:22)
[2023-07-09] MEDS: Insulin Lispro 100 UNIT/ML 3 ML VIAL SUBCUT (11:22)
[2023-07-09] MEDS: oxyCODONE HCl Immed Release 5 MG TABLET PO (11:22)
[2023-07-09] MEDS: Enoxaparin Sodium 40 MG/0.4 ML SYRINGE SUBCUT (11:22)
--- NOTE | 2023-07-09 11:49 | MHC.CM.PN ---
PATIENT IS ADVANCED TO PO IF TOLERATES DIET, WILL PLAN FOR Saturday07/10/23 DC HOME
[2023-07-09 16:28] LABS: Glucose, Whole Blood 135 mg/dL (60-115)
[2023-07-09] MEDS: Baclofen 20 MG TABLET PO (20:47)
[2023-07-09] MEDS: QUEtiapine Fumarate 25 MG TABLET PO (20:47)
[2023-07-09] MEDS: carBAMazepine 200 MG TABLET PO (20:47)
[2023-07-09] MEDS: Prazosin HCL 1 MG CAPSULE 2 MG PO (20:47)
[2023-07-09] MEDS: Tamsulosin HCL 0.4 MG CAPSULE PO (20:47)
[2023-07-09] MEDS: Prazosin HCL 5 MG CAPSULE PO (20:47)
[2023-07-09] MEDS: Melatonin 3 MG TABLET 6 MG PO (20:47)
[2023-07-09 22:12] LABS: Glucose, Whole Blood 162 mg/dL (60-115)
[2023-07-09 22:12] LABS: Glucose, Whole Blood 132 mg/dL (60-115)
[2023-07-10] MEDS: Lactated Ringers 1,000 ML 100 ML IVCONT (00:56)
[2023-07-10] MEDS: Morphine Sulfate 4 MG/ML CARTRIDGE IVPUSH ×3 (00:56→12:01)
[2023-07-10 01:59] VITALS: RESP 16
[2023-07-10 03:51] VITALS: BP 107/59; PULSE 68; RESP 16; TEMP 36.3; O2SAT 96
[2023-07-10 07:14] VITALS: BP 110/72; PULSE 57; RESP 18; TEMP 36.2; O2SAT 99
[2023-07-10 07:44] LABS: Glucose, Whole Blood 109 mg/dL (60-115)
[2023-07-10] MEDS: Acetaminophen 325 MG TABLET 650 MG PO (08:17)
[2023-07-10] MEDS: DULoxetine HCl 60 MG CAPSULE.DR PO (08:17)
[2023-07-10] MEDS: DULoxetine HCl 30 MG CAPSULE.DR PO (08:17)
[2023-07-10] MEDS: buPROPion HCl XL 300 MG TAB.ER.24H PO (08:18)
[2023-07-10] MEDS: lamoTRIgine 100 MG TABLET 200 MG PO (08:18)
[2023-07-10] MEDS: Finasteride 5 MG TABLET PO (08:18)
[2023-07-10] MEDS: Cyanocobalamin (Vitamin B-12) 1,000 MCG TABLET 1000 MCG PO (08:18)
[2023-07-10] MEDS: oxyCODONE HCl Immed Release 5 MG TABLET PO ×2 (08:18→13:44)
[2023-07-10] MEDS: lisinopriL 2.5 MG TABLET PO (08:18)
[2023-07-10] MEDS: Pregabalin 150 MG CAPSULE 300 MG PO (08:18)
[2023-07-10 11:13] LABS: Glucose, Whole Blood 225 mg/dL (60-115)
--- NOTE | 2023-07-10 11:22 | P.DS_ITS ---
DS: Providers Provider Date of Service: 07/10/23 Date of admission: 07/04/23 13:57 Primary care physician: Alessandra Bates MD Consults: 07/02/23 20:05 Consult to Gastroenterology Routine Consulting Provider: Sarah Burns Reason for consultation: Abdominal Pain 07/02/23 20:26 Addiction Medicine Stat Consulting Provider: Addiction Covering Reason for consultation: fentanyl use disorder DS: Diagnosis Discharge Diagnosis (1) Abdominal pain: Status: Acute (2) Sacroiliitis: Status: Acute DS: Summary Hospital Course Hospital Course: Admission note HPI This is a 53-year-old male with pertinent history of mood disorder, fibromyalgia, eqa-pycfzka-muecsfphr diabetes mellitus, BPH, essential hypertension who presents to the emergency department for evaluation of abdominal discomfort. Patient states he has been having left lower quadrant pain that started 1 week prior to presentation. It has been constant, nonradiating and without any relieving factors. Patient states abdominal pain is worse with certain kind of foods. No history of similar complaints in the past. Admits nausea but no vomiting. No diarrhea, hematemesis, melena or hematochezia. Patient denies fever, chills, chest discomfort, palpitations, shortness of breath, changes in urinary habits. Of note, patient was seen in the ER on 06/24 and was discharged after CT scan was concerning for enteritis. Patient states his symptoms have not improved and he continues to have significant abdominal pain. In the emergency department, Gastroenterology was consulted who requested small- bowel follow-through and will see the patient in a.m. Hospital course The patient was admitted for evaluation of Intractable abdominal pain as CT scan of abd showed possible ileitits and a small-bowel follow-through negative. He was evaluated by gastroenterology who recommended symptomatic management and sent IBD blood work to be followed with them as outpatient as the patient symptoms improved and he was able to tolerate diet with no reported nausea or pain. was able to move his bowels. Advance your diet as tolerated at home Ondanesetron as needed for nausea Oxycodone for pain control follow up with dr Burns as outpatient for further work up and to follow blood results. Time Attestation Discharge coordination time: Greater than 30 minutes Quality: Safe Use of Opioids Does Pt have an Active Cancer Diagnosis on the Problem List?: No Quality: Stroke Does the patient have a stroke diagnosis?: No Physical Exam Vital Signs: Vital Signs: Last Vital Signs Temp 97.2 F 07/10/23 07:14 Pulse 57 07/10/23 07:14 Resp 18 07/10/23 07:14 BP 110/72 07/10/23 07:14 Pulse Ox 99 07/10/23 07:14 O2 Del Method Room Air 07/10/23 07:14 BMI result Body Mass Index 21.8 Const: Other: Constitutional : Awake, interactive, not in distress Neck : Normal inspection, Supple Cardiovascular : RRR, no JVP, no lower extremity edema Respiratory : good bilateral air entry, no crackles, wheezes or rhonchi Gastrointestinal: soft, lax, Normal bowel sounds, mild generalized abd tenderness with deep palpation, no surgical signs Skin : Warm, Dry Neurological : Alert & oriented x3, No focal deficit DS: Data Data Completed and Pending Labs on day of discharge: Laboratory Results - last 24 hr 07/09/23 07/09/23 07/09/23 11:10 16:03 20:12 POC Glucose 264 H 135 H 162 H 07/09/23 07/10/23 07/10/23 22:06 07:20 11:05 POC Glucose 132 H [address] scan - abdomen: Radiologist's impression: ITS Impressions Abdomen/Pelvis CT 07/02/23 16:38 IMPRESSION: * Mildly dilated small bowel loops in the left upper quadrant, some of the bowel loops have thickened wall, this is nonspecific CT findings, no definite high degree obstruction or perforation is present. This could be sequela of ileitis, infection, inflammatory, Crohn's among other entities. Please correlate clinically, follow-up nonemergent barium study upper GI and small bowel series could be utilized for further investigation. * Nonobstructing stones in the right kidney. No hydronephrosis. 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 Other noncritical findings include electronic device embedded in the subcutaneous fat of the left buttock the tip in the pelvis. Upper GI and Small Bowel X-Ray 07/03/23 10:45 IMPRESSION: Normal small bowel series. No evidence of obstruction. Discharge Plan Discharge Anticipated Discharge Date/Time: 07/10/23 11:01 Patient Disposition: Home, Self-Care Discharge Diagnosis: Abdominal pain Referrals: Alessandra Bates MD [Primary Care Provider] - 1 Week Discharge Medications: New oxycodone 5 mg Tablet 5 mg PO Q4H PRN (Reason: moderate pain) Qty: 10 0RF Rx Instructions: Partial Fill upon patient request. Metamucil 3.4 gram/5.4 gram powder 1 tbsp PO DAILY Qty: 660 0RF Rx Instructions: mix into at least 8 oz of water or juice before administering ondansetron 4 mg tablet,disintegrating 4 mg PO Q8H PRN (Reason: nausea and vomiting) Qty: 14 0RF Continued tamsulosin 0.4 mg capsule 0.4 mg PO BEDTIME 90 Days Qty: 90 1RF naproxen [Naprosyn] 500 mg tablet 500 mg PO BEDTIME lisinopril 2.5 mg tablet 2.5 mg PO DAILY finasteride 5 mg tablet 5 mg PO DAILY prazosin 2 mg capsule 2 mg PO BEDTIME rosuvastatin 10 mg tablet 10 mg PO DAILY duloxetine 30 mg capsule,delayed release(DR/EC) 30 mg PO DAILY cyanocobalamin (vitamin B-12) 1,000 mcg Tablet 1,000 mcg PO DAILY duloxetine 60 mg capsule,delayed release(DR/EC) 60 mg PO DAILY quetiapine 25 mg tablet 25 mg PO BEDTIME baclofen 20 mg tablet 20 mg PO BEDTIME pregabalin 300 mg capsule 300 mg PO BID carbamazepine 200 mg tablet 200 mg PO BEDTIME metformin 1,000 mg tablet 1,000 mg PO BID (DME) blood sugar diagnostic Strip See Rx Instructions Not Applicable BID Qty: 10 Rx Instructions: As directed (DME) blood-glucose meter Kit See Rx Instructions .ROUTE .MEDSUPPLY Qty: 1 Rx Instructions: As directed bupropion HCl 300 mg tablet extended release 24 hr 300 mg PO QAM prazosin 5 mg capsule 5 mg PO BEDTIME lamotrigine 200 mg tablet 200 mg PO BID (DME) lancets [FreeStyle Lancets] 28 gauge misc See Rx Instructions topical BID Qty: 100 Rx Instructions: As directed Discharge Orders: Discharge Order (Routine); Ordered 07/10/23 Ordered By: Jannet Phipps Diet: Advance to usual diet Activity on Discharge: As tolerated Stand Alone Forms: Patient Portal Discharge page Care Plan Goals: Read below Health Concerns: Read below Plan of Treatment: Read below Assessment: You were admitted for evaluation of abdominal pain that was evaluated by labor relations teacher and treated with IV fluids, pain medications and advancing diet slowly with good response. Advance your diet as tolerated at home Ondanesetron as needed for nausea Oxycodone for pain control follow up with dr Burns as outpatient for further work up and to follow blood results.
--- NOTE | 2023-07-10 12:00 | MHC.CM.PN ---
order for home, self-care. CM acknowledge.
[2023-07-10] MEDS: Insulin Lispro 100 UNIT/ML 3 ML VIAL SUBCUT (12:01)
[2023-07-10] MEDS: Enoxaparin Sodium 40 MG/0.4 ML SYRINGE SUBCUT (12:02)
[2023-07-10 18:12] LABS: Calprotectin, Fecal 14 mcg/g
== END 2023-07-10 14:20 | disposition home or self-care (01) | DRG 392 ==
LOC: HO.ED 20:06 → HO.EDOVER 23:41 → HO.IMC 07-03 19:36 → HO.S3 07-07 16:58
PROVIDERS: Internal Medicine; Internal Medicine Gastroenterology; Physician Assistant; Physician Assistant Medical; Admitting Provider Student in an Organized Health Care Education/Training Program; Emergency Provider Internal Medicine; PCP Internal Medicine; Visit Provider Student in an Organized Health Care Education/Training Program
DX: K52.9 Noninfective gastroenteritis and colitis, unspecified (principal); M46.1 Sacroiliitis, not elsewhere classified; E11.40 Type 2 diabetes mellitus with diabetic neuropathy, unspecified; F39 Unspecified mood [affective] disorder; K60.2 Anal fissure, unspecified; M79.7 Fibromyalgia; N40.0 Benign prostatic hyperplasia without lower urinary tract symptoms; Z20.822 Contact with and (suspected) exposure to COVID-19; Z87.891 Personal history of nicotine dependence; Z79.84 Long term (current) use of oral hypoglycemic drugs; Z79.899 Other long term (current) drug therapy
CPT/HCPCS: 0241U; 36415; 74177; 74250; 80048; 80053; 80307; 81001; 81479; 82397; 82947; 83520; 83690; 83735; 83993; 85025; 85027; 86140; 87507; 88346; 88350; 99285; J1650; J2270; J2405; J2765; J7120; Q9967

== ENCOUNTER → 2023-07-02 13:50 | Outpatient (BNV) | payer OTHER, SELFPAY | PROVIDERS: Emergency Provider Internal Medicine; PCP Internal Medicine; Visit Provider Student in an Organized Health Care Education/Training Program | DX: R10.9 Unspecified abdominal pain (principal); M46.1 Sacroiliitis, not elsewhere classified | CPT/HCPCS: 99222; 99232; 99233; 99239 ==

== ENCOUNTER → 2023-07-02 20:03 | Outpatient (BNV) | payer OTHER, SELFPAY | PROVIDERS: Admitting Provider Student in an Organized Health Care Education/Training Program; Emergency Provider Internal Medicine; PCP Internal Medicine; Visit Provider Internal Medicine | DX: R10.9 Unspecified abdominal pain (principal); M46.1 Sacroiliitis, not elsewhere classified; K60.2 Anal fissure, unspecified | CPT/HCPCS: 99222; 99232 ==

== ENCOUNTER → 2023-07-03 07:00 | Outpatient (BNV) | payer OTHER, SELFPAY | PROVIDERS: Admitting Provider Student in an Organized Health Care Education/Training Program; Emergency Provider Internal Medicine; PCP Internal Medicine; Visit Provider Radiology Diagnostic Radiology | DX: R10.9 Unspecified abdominal pain (principal) | CPT/HCPCS: 74250 ==

== ENCOUNTER 2023-07-29 14:08 | Outpatient (AMB) | payer OTHER, SELFPAY ==
--- NOTE | 2023-07-29 14:10 | A.OFFVIS_ITS ---
Intake Vital Signs 07/29/23 14:32 Height 6 ft Weight 168 lb BMI 22.8 BP 128/69 Blood Pressure Location Lt brachial Position Sitting Pulse 73 Intake Visit Reasons: ed follow up Intake Note: Patient new consult for ED follow up for lower abdominal pain. Patient cc: lower abdominal pain, and denies any other GI issues. Director Of Public Health Required: No Accompanied by: Self / Same As Patient Allergies linagliptin [From TRADJENTA] Allergy (Intermediate, Verified 07/29/23 14:10) RASH Mvrdgoz-VYL-NgQ Reductase Inhibitor [[id number] REDUCTASE INHIBITOR] Allergy (Intermediate, Verified 07/29/23 14:10) ITCHY,SKIN BREAKDOWN Medication List - Last Reconciled 07/29/23 by Gloria Rhodes PA-C baclofen 20 mg PO BEDTIME bisacodyl (Dulcolax (bisacodyl)) 20 mg (4 x 5 mg) PO ONCE 1 day blood sugar diagnostic As directed blood-glucose meter As directed bupropion HCl 300 mg PO QAM carbamazepine 200 mg PO BEDTIME cyanocobalamin (vitamin B-12) 1,000 mcg PO DAILY docusate sodium (Colace) 200 mg (2 x 100 mg) PO BEDTIME duloxetine 60 mg PO DAILY duloxetine 30 mg PO DAILY finasteride 5 mg PO DAILY hyoscyamine sulfate (Levsin/SL) 0.125 mg PO Q12H PRN 30 days lamotrigine 200 mg PO BID lancets (FreeStyle Lancets) As directed lisinopril 2.5 mg PO DAILY metformin 1,000 mg PO BID naproxen (Naprosyn) 500 mg PO BEDTIME ondansetron 4 mg PO Q8H PRN oxycodone 5 mg PO Q4H PRN polyethylene glycol 3350 (Miralax) 238 grams PO ONCE PRN 1 day polyethylene glycol 3350 (Miralax) 17 grams PO DAILY prazosin 2 mg PO BEDTIME prazosin 5 mg PO BEDTIME pregabalin 300 mg PO BID psyllium husk (Metamucil) 1 tbsp PO DAILY quetiapine 25 mg PO BEDTIME rosuvastatin 10 mg PO DAILY tamsulosin 0.4 mg PO BEDTIME 90 days HPI HPI Comments History of Present Illness Details A 53 y/o male f/u after admission for abdominal pain- Seen by Dr. Burns and Dr. Lopez-admitted to [facility] 07/02/2023 He presents today hospital follow-up, with continued LLQ pain-bowels are normal- however has increased left lower quadrant pain when passing stool. Appetite is fair, does not feel much like eating. Has not had a fever no nausea, vomiting hematemesis, or hematochezia 2019 Cyosb-Nzwkx-lewwuzalciqz polyp [facility] Medical History (Updated 07/31/23 @ 10:33 by Gloria Rhodes PA-C) History of COVID-19 Low back pain Peripheral neuropathy Arthritis Unintentional weight loss PTSD (post-traumatic stress disorder) Hematuria Left lower quadrant pain Urinary frequency Type 2 diabetes mellitus with unspecified complications Other obstructive and reflux uropathy Benign prostatic hyperplasia with lower urinary tract symptoms Urgency incontinence Hypercalcemia Surgical History Anal fissure History of surgery Hx of cystoscopy Hx of cardiac catheterization History of prostate surgery Hx of cystoscopy Hx of cystoscopy H/O colonoscopy Social History Are you a primary health care sanitary technician to a significant other at home: No Do you presently have visiting nurse or other home services: Yes ([employer]) Alcohol intake: former Comment: also uses electric scooter Patient Tobacco Use Status: Former Tobacco user Quit Date: 2006 Tobacco use type: Cigarette Substance Use Type: Marijuana Advance Directives: No Advance Directives Information Provided: Yes service: Yes Review of Systems Const All systems reviewed & are unremarkable except as noted in HPI and below Denies chills, Reports fatigue and Denies fever(s) Card Denies chest pain and Denies dyspnea Resp Denies dyspnea GI Reports abdominal pain, Denies hematochezia, Denies change in stool character, Denies heartburn, Denies diarrhea, Denies nausea and Denies vomiting Endo Reports fatigue Physical Exam Vital Signs: Last Vital Signs Pulse 73 07/29/23 14:32 BP 128/69 07/29/23 14:32 BMI result Body Mass Index 22.8 Const General: cooperative and no acute distress Orientation/consciousness: patient oriented x3 Limitations: no limitations Eyes Sclerae: sclerae normal Resp Effort & Inspection: normal respiratory effort and able to speak in complete sentences Auscultation: clear to auscultation bilaterally, no rales, no rhonchi and no wheezes Cardio Rate: regular rate Rhythm: regular rhythm Heart sounds: S1 normal heart sound present and S2 normal heart sound present GI Palpation (GI): Soft to palpation, Tenderness to palpation present (GI) (mildly tender) in the epigastrum, in the LUQ and in the RUQ and no guarding Percussion: Yes normal to percussion Auscultation: normal bowel sounds Skin General skin exam: no rashes or lesions noted Neuro General: patient oriented x3 Extrem General: Yes full ROM Psych Appearance: grossly normal and well kempt Mental Status: mental status grossly normal Speech and movement: Clear speech present Affect: normal affect Attitude: cooperative Thought content: Normal thought content present Results Reviewed [facility]-not consistent with IBD MPRESSION: * Mildly dilated small bowel loops in the left upper quadrant, some of the bowel loops have thickened wall, this is nonspecific CT findings, no definite high degree obstruction or perforation is present. This could be sequela of ileitis, infection, inflammatory, Crohn's among other entities. Please correlate clinically, follow-up nonemergent barium study upper GI and small bowel series could be utilized for further investigation. * Nonobstructing stones in the right kidney. No hydronephrosis. 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 Other noncritical findings include electronic device embedded in the subcutaneous fat of the left buttock the tip in the pelvis. FL/FL small bowel follow through IMPRESSION: Normal small bowel series. No evidence of obstruction. Assessment & Plan Assessment & Plan (1) Abdominal pain of unknown etiology: Comment: 53-year-old male follow-up after hospital admission abdominal pain, Reviewed hospital course, abdominal CT as well as upper GI series Physical exam tender Epigastrium-LLQ Recommend EGD/colonoscopy Consulted with Dr. Drew as to urgency Code(s): R10.9 - Unspecified abdominal pain Plan: EGD/colonoscopy Saturday07/31/23 (2) Hospital discharge follow-up: Comment: Seen in consult Dr. John Carcamo- Code(s): Z09 - Encounter for follow-up examination after completed treatment for conditions other than malignant neoplasm Plan: Persistent abdominal pain Plan - Saturday No metformin clay or am of proc Orders: Orders EGD/[place] [facility]bo - GI Use Only 07/29/23 R10.9 - Unspecified abdominal pain Medications: New docusate sodium (Colace) 200 mg (2 x 100 mg) PO BEDTIME 60 caps 5RF polyethylene glycol 3350 (Miralax) Take as directed by mouth the day before your procedure. 238 grams PO ONCE 1 day PRN 238 grams 0RF laxative effect bisacodyl (Dulcolax (bisacodyl)) Day before procedure, prep day Take 4 tablets by mouth upon awakening followed by large glass of water 20 mg (4 x 5 mg) PO ONCE 1 day 4 tabs 0RF colonoscopy prep Z12.11 - Encounter for screening for malignant neoplasm of colon polyethylene glycol 3350 (Miralax) 17 grams PO DAILY 510 grams 6RF hyoscyamine sulfate (Levsin/SL) 0.125 mg PO Q12H 30 days PRN 60 tabs 0RF dyspepsia Patient Instructions: EGD, and colonoscopy, reviewed procedure, rare risks, need for escort-will MiraLax Gatorade prep, reviewed omit metformin evening before procedure as well as morning of procedure Patient agrees with plan No major barriers to understanding were identified Encouraged to call with questions or concerns Coding Level of Care Code New Pt Level 4 (66291) Diagnoses Abdominal pain of unknown etiology R10.9 Hospital discharge follow-up Z09 Time Spent (min) 40
[2023-07-29 14:32] VITALS: BP 128/69; PULSE 73; BMI 22.8
== END 2023-07-29 15:37 | disposition home or self-care (01) ==
PROVIDERS: PCP Internal Medicine; Visit Provider Physician Assistant
DX: R10.9 Unspecified abdominal pain (principal); Z09 Encounter for follow-up examination after completed treatment for conditions other than malignant neoplasm
CPT/HCPCS: 99204

== ENCOUNTER → 2023-07-29 14:08 | Outpatient (BNVA) | payer OTHER, SELFPAY | PROVIDERS: PCP Internal Medicine; Visit Provider Physician Assistant | DX: Z09 Encounter for follow-up examination after completed treatment for conditions other than malignant neoplasm (principal); R10.9 Unspecified abdominal pain | CPT/HCPCS: 99202 ==

== ENCOUNTER 2023-07-31 09:21 | Day surgery (SDC) | payer OTHER, SELFPAY ==
--- NOTE | 2023-07-30 12:20 | HO.ANESPROP2 ---
Documented by User: Edda Hoang NP 07/30/23 12:21 HPI - Anesthesia Eval Consult details Narrative: 53yo M for Upper Endoscopy and Colonoscopy [facility] Active Problems Active Problems: All Active Problems (Updated 07/29/23 @ 15:06 by Gloria Rhodes PA-C) Abdominal pain of unknown etiology (Acute) Left hip pain (Acute) Myofascial pain syndrome of lumbar spine (Acute) Myofascial pain syndrome (Acute) BPH w urinary obs/LUTS (Acute) Groin pain, chronic, left (Acute) Urinary urgency (Acute) Prostatitis (Acute) Interstitial cystitis (chronic) without hematuria (Acute) Chronic UTI (urinary tract infection) (Acute) Overactive bladder (Acute) Deep inguinal pain, left (Acute) COVID-19 (Acute) Pain of both sacroiliac joints (Acute) Osteoarthritis of hips, bilateral (Acute) Chronic pain syndrome (Acute) Hematuria (Acute) Left lower quadrant pain (Acute) Urinary frequency (Acute) Past Medical History Medical History History of COVID-19 Low back pain Peripheral neuropathy Arthritis Unintentional weight loss PTSD (post-traumatic stress disorder) Hematuria Left lower quadrant pain Urinary frequency Type 2 diabetes mellitus with unspecified complications Other obstructive and reflux uropathy Benign prostatic hyperplasia with lower urinary tract symptoms Urgency incontinence Hypercalcemia Family History Family history of problems with anesthesia: No Surgical History Surgical History Anal fissure History of surgery Hx of cystoscopy Hx of cardiac catheterization History of prostate surgery Hx of cystoscopy Hx of cystoscopy H/O colonoscopy History of Problems with Anesthesia: No Social History Social History Are you a primary care coordinator to a significant other at home: No Do you presently have 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) Alcohol intake: former Comment: also uses electric scooter Patient Tobacco Use Status: Former Tobacco user Quit Date: 2006 Tobacco use type: Cigarette Second Hand Smoke Exposure: No Use of substances other than those prescribed or required for medical reasons: Yes Substance Use Type: Marijuana Substance Use Frequency: Daily Are you DNR?: No Advance Directives: No Advance Directives Information Provided: Yes Advance Directives on File: No service: Yes Meds Allergies Allergy/AdvReac Type Severity Reaction Status Date / Time linagliptin [From TRADJENTA] Allergy Intermediate RASH Verified 07/29/23 14:10 Pievmbj-QCP-VaC Reductase Allergy Intermediate ITCHY,SKIN Verified 07/29/23 14:10 Inhibitor BREAKDOWN [[id number] REDUCTASE INHIBITOR] Home Medications Medication Instructions Recorded Confirmed Last Taken Type baclofen 20 mg tablet 20 mg PO BEDTIME 08/31/20 07/02/23 09/07/22 History carbamazepine 200 mg tablet 200 mg PO BEDTIME 08/31/20 07/02/23 09/07/22 History metformin 1,000 mg tablet 1,000 mg PO BID 08/31/20 07/02/23 09/07/22 History pregabalin 300 mg capsule 300 mg PO BID 08/31/20 07/02/23 11/12/22 05:00 History quetiapine 25 mg tablet 25 mg PO BEDTIME 08/31/20 07/02/23 09/07/22 History bupropion HCl 300 mg 24 hr tablet, 300 mg PO QAM 10/14/20 07/02/23 10/29/22 05:15 History extended release lamotrigine 200 mg tablet 200 mg PO BID 10/14/20 07/02/23 10/29/22 05:15 History prazosin 5 mg capsule 5 mg PO BEDTIME 10/14/20 07/03/23 09/06/22 History blood sugar diagnostic #10 ea 02/15/21 06/11/23 Unknown History blood-glucose meter #1 ea 02/15/21 06/11/23 Unknown History naproxen 500 mg tablet (Naprosyn) 500 mg PO BEDTIME pain 10/25/21 07/02/23 10/26/22 History lancets 28 gauge (FreeStyle #100 ea 02/20/22 06/11/23 Unknown History Lancets) cyanocobalamin (vitamin B-12) 1,000 mcg PO DAILY 07/02/23 07/02/23 Unknown History 1,000 mcg tablet duloxetine 30 mg capsule,delayed 30 mg PO DAILY 07/02/23 07/02/23 Unknown History release duloxetine 60 mg capsule,delayed 60 mg PO DAILY 07/02/23 07/02/23 Unknown History release finasteride 5 mg tablet 5 mg PO DAILY 07/02/23 07/02/23 Unknown History lisinopril 2.5 mg tablet 2.5 mg PO DAILY 07/02/23 07/02/23 Unknown History prazosin 2 mg capsule 2 mg PO BEDTIME 07/02/23 07/02/23 Unknown History rosuvastatin 10 mg tablet 10 mg PO DAILY 07/02/23 07/02/23 Unknown History Exam Pertinent Lab Results Pertinent Lab Results: Laboratory Tests 07/09/23 05:26 WBC 4.0 L Hgb 11.8 L Hct 35.3 L Plt Count 160 Sodium 143 Potassium 4.4 Chloride 102 Carbon Dioxide 35 H BUN 5 L Creatinine 0.82 Narrative Narrative: EKG 05/2023 Vent. Rate : 064 BPM Atrial Rate : 064 BPM P-R Int : 144 ms QRS Dur : 094 ms QT Int : 406 ms P-R-T Axes : 026 012 033 degrees QTc Int : 418 ms Normal sinus rhythm Lateral infarct (cited on or before 22-JAN-2021) Abnormal ECG When compared with ECG of 22-JAN-2021 17:17, No significant change was found Assessment and Plan Assessment Anesthesia Assessment: Chart Reviewed Final Anesthetic Review Family History of Problems with Anesthesia: No History of Problems with Anesthesia: No Documented by User: Dione Ortiz MD 07/31/23 10:53 [facility] Past Medical History Medical History History of COVID-19 Low back pain Peripheral neuropathy Arthritis Unintentional weight loss PTSD (post-traumatic stress disorder) Hematuria Left lower quadrant pain Urinary frequency Type 2 diabetes mellitus with unspecified complications Other obstructive and reflux uropathy Benign prostatic hyperplasia with lower urinary tract symptoms Urgency incontinence Hypercalcemia Surgical History Surgical History Anal fissure History of surgery Hx of cystoscopy Hx of cardiac catheterization History of prostate surgery Hx of cystoscopy Hx of cystoscopy H/O colonoscopy Social History Social History Are you a primary care coordinator to a significant other at home: No Do you presently have 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) Alcohol intake: former Comment: also uses electric scooter Patient Tobacco Use Status: Former Tobacco user Quit Date: 2006 Tobacco use type: Cigarette Second Hand Smoke Exposure: No Use of substances other than those prescribed or required for medical reasons: Yes Substance Use Type: Marijuana Substance Use Frequency: Daily Are you DNR?: No Advance Directives: No Advance Directives Information Provided: Yes Advance Directives on File: No service: Yes Meds Allergies Allergy/AdvReac Type Severity Reaction Status Date / Time linagliptin [From TRADJENTA] Allergy Intermediate RASH Verified 07/29/23 14:10 [id number]-VBQ-[id number] Reductase Allergy Intermediate ITCHY,SKIN Verified 07/29/23 14:10 Inhibitor BREAKDOWN [[id number] REDUCTASE INHIBITOR] Home Medications Medication Instructions Recorded Confirmed Last Taken Type baclofen 20 mg tablet 20 mg PO BEDTIME 08/31/20 07/02/23 09/07/22 History carbamazepine 200 mg tablet 200 mg PO BEDTIME 08/31/20 07/02/23 09/07/22 History metformin 1,000 mg tablet 1,000 mg PO BID 08/31/20 07/02/23 09/07/22 History pregabalin 300 mg capsule 300 mg PO BID 08/31/20 07/02/23 11/12/22 05:00 History quetiapine 25 mg tablet 25 mg PO BEDTIME 08/31/20 07/02/23 09/07/22 History bupropion HCl 300 mg 24 hr tablet, 300 mg PO QAM 10/14/20 07/02/23 10/29/22 05:15 History extended release lamotrigine 200 mg tablet 200 mg PO BID 10/14/20 07/02/23 10/29/22 05:15 History prazosin 5 mg capsule 5 mg PO BEDTIME 10/14/20 07/03/23 09/06/22 History blood sugar diagnostic #10 ea 02/15/21 06/11/23 Unknown History blood-glucose meter #1 ea 02/15/21 06/11/23 Unknown History naproxen 500 mg tablet (Naprosyn) 500 mg PO BEDTIME pain 10/25/21 07/02/23 10/26/22 History lancets 28 gauge (FreeStyle #100 ea 02/20/22 06/11/23 Unknown History Lancets) cyanocobalamin (vitamin B-12) 1,000 mcg PO DAILY 07/02/23 07/02/23 Unknown History 1,000 mcg tablet duloxetine 30 mg capsule,delayed 30 mg PO DAILY 07/02/23 07/02/23 Unknown History release duloxetine 60 mg capsule,delayed 60 mg PO DAILY 07/02/23 07/02/23 Unknown History release finasteride 5 mg tablet 5 mg PO DAILY 07/02/23 07/02/23 Unknown History lisinopril 2.5 mg tablet 2.5 mg PO DAILY 07/02/23 07/02/23 Unknown History prazosin 2 mg capsule 2 mg PO BEDTIME 07/02/23 07/02/23 Unknown History rosuvastatin 10 mg tablet 10 mg PO DAILY 07/02/23 07/02/23 Unknown History Exam Airway Mallampati Class: II TM Dist: >3cm Neck ROM: Full Partial: Upper Heart: rrr Lungs: cta Assessment and Plan Assessment Anesthesia Assessment: Anesthesia Plan Discussed Final Anesthetic Review NPO: Yes ASA Class: III Final Preanesthetic Review: No Changes in Pt Med Stat, Meds/Allgs Chart Reviewed and Consent Obtained/Reviewed Patient Risk: Intermediate Procedure Risk: Intermediate Anesthetic Plan Anesthetic Plan: MAC: Disposition: Standard PACU
--- OUTSIDE RECORDS SUMMARY | 2023-07-31 09:24 | XMS_ITS | Patient Health Record ---
Author Name Unknown Organization Nehemias Walter III, MD Address [address] [place] [address] Care Team Providers Care Glass Enamel Mixer Name Role Phone Jana TOWNSEND, [facility] Primary Care Provider Nehemias Downs Unavailable [phone] ALLERGIES Allergen (clinical drug ingredient) Drug/Non Drug Allergy documented on EMR Reaction Allergy Type Onset Date Status linagliptin Tradjenta Unknown Drug Allergy Activ e Statins Support Unknown Drug Allergy A ctive REASON FOR REFERRAL No Information MEDICATIONS Medication SIG (Take, Route, Frequency, Duration) Notes Start Date End Date Status metFORMIN HCl 1000 MG 1 tablet with a me al Orally Once a day for 30 day(s) Active Methotrexate 2.5 MG 1 tablet Orally Thre e times a Week Active Atorvastatin Calcium 20 MG 1 tablet Oral ly Once a day Active carBAMazepine 200 MG 1 tablet Orally Twi ce a day Active Lisinopril 20 MG 1 tablet Orally Once a day Active Naproxen 500 MG 1 tablet with food o r milk as needed Orally every 12 hrs Active Pregabalin 300 MG 1 capsule in the clay grady 1 to 3 hours before bedtime Orally Twice a day for 30 days 08/01/2022 Active Cephalexin 500 MG 1 capsule Orally Fou r times a day 07/16/2012 Active Baclofen 20 MG/20ML as directed Intrathecal Active lamoTRIgine 200 MG 1 tablet Orally Once a day Active buPROPion HCl 100 MG 1 tablet Orally Twi ce a day Active Pregabalin ER 330 MG 1 tablet after the evening meal Orally Once a day Active Vitamin B12 100 MCG as directed Orally Active Januvia 100 MG 1 tablet Orally Once a day Active clonazePAM 0.5 MG 1 tablet at bedtime Orally Once a day Active DULoxetine HCl 60 MG 1 capsule Orally On ce a day Active SOCIAL HISTORY Tobacco Use: Social History Observation Description Date Details (start date - stop date) Former Smoker NA - NA Sex Assigned At : Social History Observation Description Sex Assigned At Unknown Tobacco Use/Smoking Question Answer Notes Patient is a former smoker How long has it been since you last smoked? > 10 years Additional Findings: Tobacco Non-User Ex-cigaret te smoker Alcohol Screen Question Answer Notes Did you have a drink containing alcohol in the p ast year? No Points 0 Interpretation Negative PROBLEMS Problem Type ICD Code Onset Dates Problem Status W/U Status Risk SNOMED Code Notes Problem Former smoker (Z87.891) Active confirmed 6357052 He seems highly motivated not to smoke. We discussed a plan to prevent relapse in times of stress and illness. Problem Mixed hyperlipidemia (E78.2) Active confirmed [id number] His lipids have been well controlled despite his statin intolerance. Problem Essential hypertension (I10) Active confirmed [id number] His blood pressure today was 118/72 which is well controlled. Problem Degenerative disc disease, cervical (M50.30) Active confirmed [id number] He has had surgery and fusion in his neck. He is mildly symptomatic at the current time. He denies taking aspirin or ibuprofen. Problem Statin intolerance (Z78.9) Active confirmed [id number] He has not been taking a statin recently. Problem Purpura (D69.2) Active confirmed [id number] His laboratory evaluation showed normal blood clotting. No bruising was noted on examination today. He was reassured that all seems to be well. It does not seem necessary in the absence of significant bleeding to test his platelet functions. Problem Type 2 diabetes mellitus without complication, without long-term current use of insulin (E11.9) Active confirmed [id number] No change in his current regimen as indicated. Encounters Encounter Location Date Provider Diagnosis Neehmias Walter III, MD [address] [place] [address] [place] [address] 08/01/2022 Nehemias Walter PLAN OF TREATMENT Pending Test Test Name Order Date CBC w DIFF 07/16/2012 ROUTINE CULTURE 07/16/2012 von Willebrand Ag Multimeric 03/01/2021 Mixing Study (PT/PTT) 03/01/2021 Insurance Providers Payer Name Payer Address Payer Phone Subscriber Number Group Number Insured Name Patient Relationship to Insured Coverage Start Date Coverage End Date [facility] [address] [place] [phone] [id number] KAVON GUERRERO Self - patient is the insured MEDICAL (GENERAL) HISTORY Medical History History ICD Code essential hypertension hyperlipidemia adult-onset diabetes mellitus statin intolerance depression former smoker noncardiac chest pain degenerative joint disease cervical spin e cervical radiculopathy L2-L5 Surgical History Surgery Date(Month/Year) negative cardiac catheterization 03/2020 appendectomy anterior cervical fusion and discectomy, Dr. Goodman 2014
--- OUTSIDE RECORDS SUMMARY | 2023-07-31 09:25 | XMS_ITS | Continuity of Care Document ---
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 Name Role Phone Alessandra Bates MD Primary Care Physician Encounter [facility] [place] ACCT R [id number] Date(s): 09/13/22 - 10/13/22 [facility] [address] [place] [address]- Attending Physician: Sarah Jimenez Admitting Physician: Sarah Jimenez Referring Physician: AdmtrSarah Allergies, Adverse Reactions, Alerts Substance Reaction Severity Status statins 1 extreme itching all over body Active Tradjenta Active 1rash Medications baclofen 20 mg oral tablet 20 mg, 1, tablet, By Mouth, 3 times a day, Refills 0, Maintenance, 01/09/21 9:56:00 EDT, Partial fill upon patient request if the prescription is for a schedule II opioid drug. Start Date: 01/09/21 Status: Ordered buPROPion 300 mg/24 hours (XL) oral tablet, extended release TAKE 1 TABLET BY MOUTH EVERY MORNING Start Date: 06/14/17 Status: Ordered Cannabis (Schedule I Substance) has state certificate, 0 Refills, Maintenance, 08/28/17 10:50:46 Start Date: 08/28/17 Status: Ordered carBAMazepine 200 mg oral tablet TAKE 1 TABLET BY MOUTH EVERY DAY AT BEDTIME 30 DAYS Start Date: 06/14/17 Status: Ordered clonazePAM 0.5 mg oral tablet 0.5 tablet = 0.25 mg, By Mouth, Daily, 0 Refills, Maintenance, 03/15/20 8:09:00 EDT, Tablet Start Date: 03/15/20 Status: Ordered duloxetine 30 mg oral enteric coated capsule TAKE ONE CAPSULE BY MOUTH DAILY WITH 60MG TOTAL DOSE 90MG Start Date: 06/14/17 Status: Ordered duloxetine 60 mg oral enteric coated capsule 0 Refills, Maintenance, 06/14/17 7:31:43 Start Date: 06/14/17 Status: Ordered lamotrigine 200 mg oral tablet 1 tablet = 200 mg, By Mouth, 2 times a day, # 60 tablet, 0 Refills, Maintenance, 03/15/20 8:15:00 EDT, Tablet Start Date: 03/15/20 Status: Ordered Lyrica 300 mg oral capsule TAKE ONE CAPSULE BY MOUTH TWICE A DAY Start Date: 06/14/17 Status: Ordered metFORMIN 1000 mg oral tablet 1 tablet = 1,000 mg, By Mouth, 2 times a day, 0 Refills, Maintenance, 07/09/18 9:59:57 EST Start Date: 07/09/18 Status: Ordered naproxen 500 mg oral tablet 1 tablet = 500 mg, By Mouth, 2 times a day, # 60 tablet, 0 Refills, Maintenance, 03/15/20 8:15:00 EDT, Tablet Start Date: 03/15/20 Status: Ordered Prazosin See Instructions, 7mg 1 tab daily, 0 Refills, Maintenance, 10/18/17 8:39:50 Start Date: 10/18/17 Status: Ordered QUEtiapine 25 mg oral tablet TAKE 1 TABLET BY MOUTH AT BEDTIME (INS=30 DAYS) Start Date: 08/28/17 Status: Ordered Symbicort 160mcg/4.5mcg Inhaler 1, puffs, Inhalation, 2 times a day, Maintenance, 07/04/22 10:34:00 EST, Aerosol Start Date: 07/04/22 Status: Ordered tamsulosin 0.4 mg oral capsule 0.4 mg, 1, capsule, By Mouth, Daily, Refills 0, Maintenance, 01/09/21 9:55:00 EDT, Partial fill upon patient request if the prescription is for a schedule II opioid drug. Start Date: 01/09/21 Status: Ordered Vitamin B12 = 1,000 mcg, By Mouth, Daily, 0 Refills, Maintenance, 01/03/18 8:05:05 EDT Start Date: 01/03/18 Status: Ordered Problem List Condition Confirmation Course Effective Dates Status Health St atus Informant Lumbar facet arthropathy Confirmed Active Fibromyalgia Confirmed Active Limitation due to disability 1 Confirmed Active Drug or alcohol risk assessment 2 Confirmed Active History of medical problems 3 Confirmed Active Low back pain Confirmed Active Sacroiliac joint disease Confirmed Active Moderate somatic symptom disorder with predominant pain Confirmed Active Somnolence 4 Confirmed Active 1initial Oswestry Disability Index: 64% ( crippled ) on06/14/17; initial [place]: 17 on 06/14/17 2SOAPP-R; 25 on 06/14/17 3Pain relevant problem list includes: See below 4initial [place]: 17 on 06/14/17 Social History Social History Type Response Smoking Status Former smoker; Stopp ed at age: 39; entered on: 06/28/17 Sex Patient Care team information Care Team Personnel Name: Alessandra Bates MD Position: [facility] Outreach Member Role: PCP Address: Address: [address] [place] [address] [address] [place] [address]- Care Team Related Persons Name: JENNIFER EAST Address: [address] [place] [address] Name: TARA JEFFERSON Address: home [address] [place] [address]
--- OUTSIDE RECORDS SUMMARY | 2023-07-31 09:25 | XMS_ITS | Continuity of Care Document ---
Author Name Unknown Organization [facility] Address [address] [place] [id number]- Care Team Providers Care Pattern Marker Name Role Phone Alessandra Bates MD Primary Care Physician [phone] [facility]counter [facility] [id number] Date(s): 07/16/22 - 10/13/22 [facility] [address] [place] [address]- Attending Physician: Fifi Grewal MD Admitting Physician: Fifi Grewal MD Referring Physician: Alessandra Bates MD Allergies, Adverse Reactions, Alerts Substance Reaction Severity [...] Index: 64% ( crippled ) on06/14/17; initial [place]: 17 on 06/14/17 2SOAPP-R; 25 on 06/14/17 3Pain relevant problem list includes: See below 4initial [place]: 17 on 06/14/17 Social History Social History Type Response Smoking Status Former smoker; Stopp ed at age: 39; entered on: 06/28/17 Sex Patient Care team information Care Team Personnel Name: Alessandra Bates MD Position: [facility] Outreach Member Role: PCP Address: Address: [address] [place] [address] [address] [place] [address]- Care Team Related Persons Name: JENNIFER EAST Address: [address] [place] [address] Name: TARA JEFFERSON Address: [address] [place] [address]
[2023-07-31 10:41] VITALS: BMI 22.8
[2023-07-31 10:48] VITALS: BP 114/65; PULSE 56; RESP 16; TEMP 36.6; O2SAT 99
--- NOTE | 2023-07-31 10:52 | MHC.SHP ---
Pre-Procedural Eval Section A Date of Service: 07/31/23 Section B Chief Complaint: Unspecified abdominal pain Relevant Family History (Specify if Yes): No Relevant Social History: None Present Medications: see Short Stay Collaborative assessment Medical History: Significant History (Arthritis Benign prostatic hyperplasia with lower urinary tract symptoms Hematuria History of COVID-19 Hypercalcemia Left lower quadrant pain Low back pain Other obstructive and reflux uropathy Peripheral neuropathy PTSD (post-traumatic stress disorder) Type 2 diabetes mellitus with unspecified comp) History of Previous Operations: Relevant previous surgery/procedure and date(s) (H/O colonoscopy History of prostate surgery History of surgery Hx of cardiac catheterization Hx of cystoscopy Hx of cystoscopy Hx of cystoscopy) Allergies: Allergies Allergy/AdvReac Type Severity Reaction Status Date / Time linagliptin [From TRADJENTA] Allergy Intermediate RASH Verified 07/29/23 14:10 Pqwcphq-NOW-RcY Reductase Allergy Intermediate ITCHY,SKIN Verified 07/29/23 14:10 Inhibitor BREAKDOWN [RZECPSC-LOC-FAT REDUCTASE INHIBITOR] Review of Systems Sugical H&P ROS: Negative: Constitution, Cardiovascular, Respiratory, Neurological, Psychiatric, Hem-Onc, Allergic/Immunologic, Gastrointestinal, Genitourinary, Musculoskeletal, Integumentary, Endocrine and Eyes/Ears/Nose/Throat Exam Surgical H&P Exam: Normal: HEENT, Normal: Heart, Normal: Lungs, Normal: Extremities, Normal: Abdomen, Normal: Skin and Normal: Neurological Plan Diagnosis/Plan: Unchanged I have reviewed the history and physical and performed a pertinent physical examination on my patient. No changes have occurred unless specified. Time Spent With Patient Time: Total time managing care of this patient today ____ minutes.
--- NOTE | 2023-07-31 11:02 | W.PM.OPN ---
Operative Note Operative Note Date of Service: 07/31/23 Narrative: Operative Information Procedure Description: EGD, Colonoscopy Indication: abn imaging, abdominal pain Anesthesia: MAC FLEXIBLE TRANSORAL UPPER GASTROINTESTINAL ENDOSCOPY AND COLONOSCOPY PROCEDURE NOTE UPPER ENDOSCOPY Consent: Indications for the procedure and potential complications of bleeding, perforation, reaction to medications and missed diagnosis were discussed with the patient and informed consent was obtained. Instrument: Olympus GIF H 190 J mid size upper endoscope Monitoring: Vital signs and clinical assessment, continuous EKG monitoring, Pulse oximetry, Carbon Dioxide monitoring and blood pressure monitoring were done throughout the procedure. Procedure: The patient was placed in the left lateral decubitis position and pre-procedure medications were administered and a bite block was placed. The endoscope was inserted into the mouth and advanced under direct vision to the third part of duodenum. A careful inspection was made as the upper endoscope was withdrawn including a retroflexed examination of the proximal stomach; Findings and interventions are described below. Findings: Larynx:normal Esophagus: GE junction at 40 cm, diaphragm hiatus at 40 cm, mild congestion and erythema at GEJ, consistent with reflux esophagitis Stomach: Erythematous mucosa with granularity, Biopsies were obtained. Grade 2 flap valve on retroflexed examination of the cardia. Duodenum: Mild bulbar duodenitis, bx taken Intervention: Biopsies as noted above COLONOSCOPY Instrument: Olympus variable stiffness pediatric scope 190L Colonoscopy Monitoring: Vital signs and clinical assessment, continuous EKG monitoring, Pulse oximetry, Carbon Dioxide monitoring and blood pressure monitoring were done throughout the procedure. Colon withdrawal time was 12 minutes. Procedure: The patient was placed in the left lateral decubitis position and pre-procedure medications were administered. After a digital rectal examination of the ano-rectum, the video colonoscope was inserted into the rectum and advanced through the colon to the cecum/TI. The colonoscope was slowly withdrawn in a retrograde panoramic fashion and the colon mucosa was carefully examined including a retroflexed view of the rectum. Findings and interventions are described below. Procedure Difficulty: easy Findings: Terminal Ileum-normal, bx taken random bx taken from right and left colon in separate jars Cecum:normal Ascending Colon: normal Transverse Colon -normal Descending Colon:normal Sigmoid Colon: normal Rectum: Retroflexion with small internal hemorrhoids, grade 1 Anorectum - normal Colon preparation: [place] Bowel Preparation Scale Right colon; 2 Transverse colon: 2 Left colon; 2 (0 = Unprepared colon segment with mucosa not seen due to solid stool that cannot be cleared. 1 = Portion of mucosa of the colon segment seen, but other areas of the colon segment not well seen due to staining, residual stool and/or opaque liquid. 2 = Minor amount of residual staining, small fragments of stool and/or opaque liquid, but mucosa of colon segment seen well. 3 = Entire mucosa of colon segment seen well with no residual staining, small fragments of stool or opaque liquid) Impression and Post Procedure Diagnosis: Endoscopy Findings: gastritis duodenitis esophagitis Colonoscopy Findings: internal hemorrhoids Plan: Await Pathology results Repeat Colonoscopy in 10 years or earlier if clinically indicated High fiber diet leaflet avoid straining at stool, epsom salts and sitz bath, anusol supps or cream GERD precautions if h pylori pos then treat, check nsaid hx Above findings were reviewed with the patient and relevant handouts were provided if indicated.
[2023-07-31 11:03] LABS: Glucose, Whole Blood 102 mg/dL (60-115)
[2023-07-31 11:37] VITALS: BP 118/68; PULSE 59; RESP 16; TEMP 36.1; O2SAT 99
[2023-07-31 11:53] VITALS: BP 119/70; PULSE 59; RESP 16; O2SAT 95
[2023-07-31 12:08] VITALS: BP 114/73; PULSE 53; RESP 16; TEMP 36.2; O2SAT 98
== END 2023-07-31 12:40 | disposition home or self-care (01) ==
PROVIDERS: PCP Internal Medicine; Visit Provider Internal Medicine Gastroenterology
PROC: (CPT 43239; principal; 2023-07-31 11:50)
DX: K29.80 Duodenitis without bleeding (principal); K29.70 Gastritis, unspecified, without bleeding; K20.90 Esophagitis, unspecified without bleeding; K22.89 Other specified disease of esophagus; K64.0 First degree hemorrhoids; R93.3 Abnormal findings on diagnostic imaging of other parts of digestive tract; R10.9 Unspecified abdominal pain; E11.9 Type 2 diabetes mellitus without complications; F12.90 Cannabis use, unspecified, uncomplicated; Z87.891 Personal history of nicotine dependence; Z79.84 Long term (current) use of oral hypoglycemic drugs; Z79.899 Other long term (current) drug therapy
CPT/HCPCS: 43239; 45380; 82947; 88305; 88342; J2704

== ENCOUNTER → 2023-07-31 09:21 | Outpatient (BNV) | payer OTHER, SELFPAY | PROVIDERS: PCP Internal Medicine; Visit Provider Internal Medicine Gastroenterology | DX: R93.3 Abnormal findings on diagnostic imaging of other parts of digestive tract (principal); R10.9 Unspecified abdominal pain; K29.70 Gastritis, unspecified, without bleeding; K29.80 Duodenitis without bleeding; K20.90 Esophagitis, unspecified without bleeding; K64.0 First degree hemorrhoids | CPT/HCPCS: 43239; 45380 ==

== ENCOUNTER 2023-08-28 13:59 | Outpatient (AMB) | payer OTHER, SELFPAY ==
--- NOTE | 2023-08-28 14:09 | MHC.OFFVIS ---
Intake Vital Signs 08/28/23 14:10 Height 6 ft Weight 168 lb BMI 22.8 BP 90/55 L Blood Pressure Location Lt brachial Position Sitting Pulse 80 Intake Visit Reasons: follow up for procedure Intake Note: Patient follow up for olonoscopy results Patient cc: abdominal pain LLQ and denies any other GI issues. Thermodynamics Engineer Required: No Accompanied by: Self / Same As Patient Allergies linagliptin [From TRADJENTA] Allergy (Intermediate, Verified 08/28/23 14:14) RASH Htwqkrx-QPG-EyE Reductase Inhibitor [BJBGVYD-WOQ-ABG REDUCTASE INHIBITOR] Allergy (Intermediate, Verified 08/28/23 14:14) ITCHY,SKIN BREAKDOWN Medication List - Last Reconciled 08/28/23 by Gloria Rhodes PA-C baclofen 20 mg PO BEDTIME blood sugar diagnostic As directed blood-glucose meter As directed bupropion HCl 300 mg PO QAM carbamazepine 200 mg PO BEDTIME cyanocobalamin (vitamin B-12) 1,000 mcg PO DAILY docusate sodium (Colace) 200 mg (2 x 100 mg) PO BEDTIME duloxetine 60 mg PO DAILY duloxetine 30 mg PO DAILY finasteride 5 mg PO DAILY hyoscyamine sulfate (Levsin/SL) 0.125 mg PO Q12H PRN 90 days lamotrigine 200 mg PO BID lancets (FreeStyle Lancets) As directed lisinopril 2.5 mg PO DAILY metformin 1,000 mg PO BID naproxen (Naprosyn) 500 mg PO BEDTIME ondansetron 4 mg PO Q8H PRN oxycodone 5 mg PO Q4H PRN polyethylene glycol 3350 (Miralax) 17 grams PO DAILY prazosin 2 mg PO BEDTIME prazosin 5 mg PO BEDTIME pregabalin 300 mg PO BID psyllium husk (Metamucil) 1 tbsp PO DAILY quetiapine 25 mg PO BEDTIME rosuvastatin 10 mg PO DAILY tamsulosin 0.4 mg PO BEDTIME 90 days HPI HPI Comments History of Present Illness Details A 53 y/o male f/u after EGD and colonoscopy- for abdominal pain- he was seen initially after hospital admission- He tolerated procedures well, he does take nsaid for back pain- he is going to follow back with his PCP Vague LQ / lbp- years of back pain Reviewed procedure report, pathology recommendation Opportunity for questions answered to his satisfaction appetite is good he does have heartburn Bowels have been normal Just got back from vacation in [place] No nausea, vomiting, hematemesis, hematochezia fever chills COUNTS INCLUDE 234 BEDS AT THE [facility] Medical History (Updated 08/28/23 @ 14:40 by Gloria Rhodes PA-C) History of COVID-19 Low back pain Peripheral neuropathy Arthritis Unintentional weight loss PTSD (post-traumatic stress disorder) Hematuria Left lower quadrant pain Urinary frequency Type 2 diabetes mellitus with unspecified complications Other obstructive and reflux uropathy Benign prostatic hyperplasia with lower urinary tract symptoms Urgency incontinence Hypercalcemia Surgical History History of esophagogastroduodenoscopy (EGD) Anal fissure History of surgery Hx of cystoscopy Hx of cardiac catheterization History of prostate surgery Hx of cystoscopy Hx of cystoscopy H/O colonoscopy Social History Are you a primary career technical education instructor to a significant other at home: No Do you presently have visiting nurse or other home services: Yes (INTELLIGENCE OFFICER) Alcohol intake: former Patient Tobacco Use Status: Former Tobacco user Quit Date: 2006 Tobacco use type: Cigarette Second Hand Smoke Exposure: No Substance Use Type: Marijuana service: Yes Review of Systems Const All systems reviewed & are unremarkable except as noted in HPI and below Card Denies chest pain and Denies dyspnea Resp Denies dyspnea GI Reports abdominal pain (Vague left quadrants intermittent), Denies bloating, Denies hematochezia, Denies change in stool character, Denies nausea and Denies vomiting Physical Exam Vital Signs: Last Vital Signs Pulse 80 08/28/23 14:10 BP 90/55 L 08/28/23 14:10 BMI result Body Mass Index 22.8 Const General: cooperative, healthy appearing, comfortable and no acute distress Orientation/consciousness: patient oriented x3 Limitations: no limitations Eyes Sclerae: sclerae normal Resp Effort & Inspection: normal respiratory effort and able to speak in complete sentences Auscultation: rales, rhonchi and wheezes GI Palpation (GI): Soft to palpation and nontender Skin General skin exam: no rashes or lesions noted Neuro General: patient oriented x3 Extrem General: Yes full ROM Psych Appearance: grossly normal and well kempt Mental Status: mental status grossly normal Speech and movement: Normal speech and movement present and Clear speech present Affect: normal affect Attitude: cooperative Thought process: Normal thought process present Thought content: Normal thought content present Insight: Good insight present (Psych) Judgement: Good judgement present (Psych) Results Reviewed Results Reviewed: Name: Linus Angeles Jr Age/Sex: 53/M Attending: Geoffrey Drew MD : 1970 Submitted by: Geoffrey Drew MD Copies to: Alessandra Bates MD MR #: [id number] Status: [facility] Collected: 07/31/23 Location: [facility] Received: 07/31/23 Diagnosis A. Duodenum, biopsy: Duodenal mucosa within normal limits. B. Stomach, biopsy: Antral-type and oxyntic mucosa with mild chronic inactive inflammation; no Helicobacter organisms seen. C. Terminal ileum, biopsy: Small intestinal mucosa within normal limits. D. Colon, right, biopsy: Colonic mucosa within normal limits. E. Colon, left, biopsy: Colonic mucosa within normal limits. Clinical History Pre-Op Dx: Abnormal imaging on CT scan, abdominal pain Post-Op Dx: Duodenitis, gastritis, esophagitis Microscopic Description A-E. Microscopic sections reviewed. Immunostain for H. pylori is non-reactive (B). Material Received A. Duodenum bx's B. Stomach bx's C. TI bx's D. Right-sided colon bx's E. Left-sided colon bx's Gross Description Received in 5 parts. Part A: Received in formalin labeled ?duodenum bx's? are 4 fitzgerald-pink irregular tissue fragments ranging from 0.1 to 0.2 cm, submitted toto in a cassette labeled A. Part B: Received in formalin labeled ?stomach bx's? are 3 fitzgerald-pink irregular tissue fragments each measuring 0.5 cm, submitted in toto in a cassette labeled B. Part C: Received in formalin labeled ?TI bx's? are 2 fitzgerald-pink irregular tissue fragments measuring 0.25 and 0.3 cm, submitted in the toto in a cassette labeled C. Patient: Linus Angeles Jr Age/Sex: 53/M MR#: [id number] Page 1 of 2 mpression and Post Procedure Diagnosis: Endoscopy Findings: gastritis duodenitis esophagitis Colonoscopy Findings: internal hemorrhoids Plan: Await Pathology results Repeat Colonoscopy in 10 years or earlier if clinically indicated High fiber diet leaflet avoid straining at stool, epsom salts and sitz bath, anusol supps or cream GERD precautions if h pylori pos then treat, check nsaid hx Assessment & Plan Assessment & Plan (1) Abdominal pain of unknown etiology: Comment: Review EGD/colonoscopy report pathology and recommendation Consulted with Dr. Drew as to urgency Code(s): R10.9 - Unspecified abdominal pain Plan: Discontinue NSAID Pantoprazole 20 mg (2) Normal colonoscopy: Plan: No polyp Repeat asymptomatic colonoscopy 10 years (3) Dyspepsia: Comment: Avoid culprits Code(s): R10.13 - Epigastric pain Plan: Pantoprazole 20 mg (4) Hemorrhoids: Code(s): K64.9 - Unspecified hemorrhoids Plan: Maintain high-fiber diet Avoid strain Plan Repeat colonoscopy 10 years Medications: New pantoprazole 20 mg PO QAM 30 tabs 6RF Patient Instructions: Repeat asymptomatic colonoscopy 10 years Monitor symptoms will call with progress Pantoprazole 20 mg daily Avoid culprits Avoid straining with hemorrhoids Maintain high-fiber diet Coding Level of Care Code Est Pt Level 3 (54704) Diagnoses Abdominal pain of unknown etiology R10.9 Normal colonoscopy Dyspepsia R10.13 Hemorrhoids K64.9 Time Spent (min) 20
[2023-08-28 14:10] VITALS: BP 90/55; PULSE 80; BMI 22.8
== END 2023-08-28 14:34 | disposition home or self-care (01) ==
PROVIDERS: PCP Internal Medicine; Visit Provider Physician Assistant
DX: R10.9 Unspecified abdominal pain (principal); R10.13 Epigastric pain; K64.9 Unspecified hemorrhoids
CPT/HCPCS: 99213

== ENCOUNTER → 2023-08-28 13:59 | Outpatient (BNVA) | payer OTHER, SELFPAY | PROVIDERS: PCP Internal Medicine; Visit Provider Physician Assistant | DX: R10.9 Unspecified abdominal pain (principal); R10.13 Epigastric pain; K64.9 Unspecified hemorrhoids | CPT/HCPCS: 99212 ==

== ENCOUNTER 2023-11-23 18:50 | Emergency (ER) | payer OTHER, SELFPAY ==
--- NOTE | ~2023-11-23 | XR_ITS ---
EXAMINATION: XR CHEST CLINICAL INFORMATION: Chest pain COMPARISON: None available. TECHNIQUE: 2 views of the chest were obtained. FINDINGS: The lungs are well-expanded and clear. There is platelike atelectasis right middle lobe. Heart size and pulmonary vascularity is normal. No gross bony abnormality seen. XR/XR chest 2V IMPRESSION: Platelike atelectasis right middle lobe.
[2023-11-23 18:58] VITALS: BP 138/91; PULSE 104; RESP 18; TEMP 36.9; O2SAT 97; BMI 24.1
--- NOTE | 2023-11-23 19:55 | ECG_ITS ---
Test Reason : BACK PAIN Blood Pressure : / mmHG Vent. Rate : 064 BPM Atrial Rate : 064 BPM P-R Int : 166 ms QRS Dur : 094 ms QT Int : 408 ms P-R-T Axes : 035 012 045 degrees QTc Int : 420 ms Normal sinus rhythm Lateral infarct (cited on or before 22-JAN-2021) Abnormal ECG When compared with ECG of 30-MAY-2023 19:40, No significant change was found Referred By: Linus Portillo Electronically Signed By:Kaleb Couch
[2023-11-23] MEDS: oxyCODONE HCl Immed Release 5 MG TABLET 10 MG PO (19:56)
[2023-11-23] MEDS: diazePAM 2 MG TABLET 5 MG PO ×2 (19:56→21:11)
--- NOTE | 2023-11-23 20:00 | ED.GENADULT ---
HPI - General Adult General Chief complaint: Back Pain/Injury Stated complaint: left side numbness face and arm Time Seen by Provider: 11/23/23 19:31 History of Present Illness HPI narrative: patient complains of 5 days of a left-sided neck pain radiating down his arm with a tingling sensation but denies any loss of sensation or motor strength, he denies any injury Associated with this starting at the same time as intermittent episodes of chest pain, he has not sure if it has a radiating pain the pain is not related to exertion it comes and goes at random times, there is no diaphoresis no exertional component no shortness a breath no fainting or feeling faint The neck pain he says is severe, there has been no fever, as stated above there is a tingling sensation all the way down to his fingertips but no loss of sensation he can feel things with his hand, it hurts to use the arm but is strength is normal for himself, no changes to bowel or bladder no incontinence no dysuria, denies skin rash to the area No abdominal pain no nausea or vomiting Related Data Home Medications Medication Instructions Recorded Confirmed baclofen 20 mg tablet 20 mg PO BEDTIME 08/31/20 08/28/23 carbamazepine 200 mg tablet 200 mg PO BEDTIME 08/31/20 08/28/23 metformin 1,000 mg tablet 1,000 mg PO BID 08/31/20 08/28/23 pregabalin 300 mg capsule 300 mg PO BID 08/31/20 08/28/23 quetiapine 25 mg tablet 25 mg PO BEDTIME 08/31/20 08/28/23 bupropion HCl 300 mg 24 hr tablet, 300 mg PO QAM 10/14/20 08/28/23 extended release lamotrigine 200 mg tablet 200 mg PO BID 10/14/20 08/28/23 prazosin 5 mg capsule 5 mg PO BEDTIME 10/14/20 08/28/23 blood sugar diagnostic #10 ea 02/15/21 08/28/23 blood-glucose meter #1 ea 02/15/21 08/28/23 naproxen 500 mg tablet (Naprosyn) 500 mg PO BEDTIME pain 10/25/21 08/28/23 lancets 28 gauge (FreeStyle #100 ea 02/20/22 08/28/23 Lancets) cyanocobalamin (vitamin B-12) 1,000 mcg PO DAILY 07/02/23 08/28/23 1,000 mcg tablet duloxetine 30 mg capsule,delayed 30 mg PO DAILY 07/02/23 08/28/23 release duloxetine 60 mg capsule,delayed 60 mg PO DAILY 07/02/23 08/28/23 release finasteride 5 mg tablet 5 mg PO DAILY 07/02/23 08/28/23 lisinopril 2.5 mg tablet 2.5 mg PO DAILY 07/02/23 08/28/23 prazosin 2 mg capsule 2 mg PO BEDTIME 07/02/23 08/28/23 rosuvastatin 10 mg tablet 10 mg PO DAILY 07/02/23 08/28/23 Previous Rx's Medication Instructions Recorded ondansetron 4 mg disintegrating 4 mg PO Q8H PRN nausea and 07/10/23 tablet vomiting #14 tabs oxycodone 5 mg tablet 5 mg PO Q4H PRN moderate pain #10 07/10/23 tabs psyllium husk 3.4 gram/5.4 gram 1 tbsp PO DAILY #660 grams 07/10/23 oral powder (Metamucil) docusate sodium 100 mg capsule 200 mg (2 x 100 mg) PO BEDTIME #60 07/29/23 (Colace) caps polyethylene glycol 3350 17 17 g PO DAILY #510 grams 07/29/23 gram/dose oral powder (Miralax) hyoscyamine sulfate 0.125 mg 0.125 mg PO Q12H PRN dyspepsia 90 08/23/23 sublingual tablet (Levsin/SL) days #180 tabs pantoprazole 20 mg tablet,delayed 20 mg PO QAM #30 tabs 08/28/23 release tamsulosin 0.4 mg capsule 0.4 mg PO BEDTIME 90 days #90 caps 11/20/23 diazepam 5 mg tablet (Valium) 5 mg PO TID PRN muscle spasm #14 11/23/23 tabs oxycodone 5 mg tablet 5 mg PO Q6H PRN pain #14 tabs 11/23/23 Allergies Allergy/AdvReac Type Severity Reaction Status Date / Time linagliptin [From TRADNTA] Allergy Intermediate RASH Verified 08/28/23 14:14 Hgydwnn-NKD-CpQ Reductase Allergy Intermediate ITCHY,SKIN Verified 08/28/23 14:14 Inhibitor BREAKDOWN [ZVJXAJG-[id number]-XRA REDUCTASE INHIBITOR] [facility] Past Medical History Source: nursing notes reviewed Medical History (Updated 11/23/23 @ 21:15 by PRICILA Toth) History of COVID-19 Low back pain Peripheral neuropathy Arthritis Unintentional weight loss PTSD (post-traumatic stress disorder) Hematuria Left lower quadrant pain Urinary frequency Type 2 diabetes mellitus with unspecified complications Other obstructive and reflux uropathy Benign prostatic hyperplasia with lower urinary tract symptoms Urgency incontinence Hypercalcemia Surgical History History of esophagogastroduodenoscopy (EGD) Anal fissure History of surgery Hx of cystoscopy Hx of cardiac catheterization History of prostate surgery Hx of cystoscopy Hx of cystoscopy H/O colonoscopy Social History Social History Are you a primary critical care nurse practitioner to a significant other at home: No Do you presently have 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) Alcohol intake: never Patient Tobacco Use Status: Former Tobacco user Quit Date: 2006 Tobacco use type: Cigarette Smoked in Last 30 Days: No Second Hand Smoke Exposure: No Use of substances other than those prescribed or required for medical reasons: Yes Substance Use Type: Marijuana Advance Directives: No Advance Directives Information Provided: No service: Yes Physical Exam ED Vital Signs: Vital Signs - 24 hr 11/23/23 18:58 Temperature 98.5 F Pulse Rate 104 H Respiratory Rate 18 Blood Pressure 138/91 H Pulse Oximetry 97 Oxygen Delivery Method Room Air BMI result Body Mass Index 24.1 general appearance is uncomfortable appearing Head is normocephalic atraumatic There is tenderness in the left lateral neck area and left trapezius, pain is reproduced with movement Skin over the back of the neck is normal no herpetic lesions no rash Range of motion is limited by pain in lateral movements, no meningismus The chest is clear to auscultation bilateral No chest wall tenderness, skin of the chest is normal, no pleuritic pain no pain with a deep breath Abdomen soft nontender The back had good range of motion no significant tenderness now Extremities range of motion in the left shoulder is limited by pain in the neck Other extremities normal range of motion Skin no rash Neuro no focal motor sensory deficits, inspector screen printing strength is 5/5 and symmetrical in both arms, sensation is intact and symmetrical, cranial nerves 2-12 intact as tested, no facial asymmetry, interaction comprehension and expression are all normal Course Course Course Narrative: patient with 3 days of left-sided neck pain radiating to the left hand with a tingling sensation but no loss of strength or sensation no changes to bowel or bladder no injury no fever as well as some left-sided chest pain The left-sided chest pain is not worse with movement, he has not sure if it is radiating from his neck so troponin and EKG were done EKG showed no acute ST elevations or ischemic changes, when compared to prior EKG no acute changes were noted, it was a normal sinus rhythm with a rate of 64 Oxycodone Valium and Toradol were given to help with pain relief, Decadron 10 mg was given in hopes of reducing inflammation around the nerve in coming days Chest x-ray is pending results so case is signed out to Le physician property management assistant to follow chest x-ray Medications Administered Discontinued Medications Generic Name Dose Route Start Last Admin Trade Name Cary PRN Reason Stop Dose Admin Diazepam 5 mg 11/23/23 19:47 11/23/23 19:56 Diazepam 2 Mg Tablet PO 11/23/23 19:48 5 mg ONCE ONE Administration Ketorolac Tromethamine 30 mg 11/23/23 20:13 11/23/23 20:29 Ketorolac Tromethamine 30 Mg/Ml Vial IM 11/23/23 20:14 30 mg ONCE ONE Administration Oxycodone HCl 10 mg 11/23/23 19:45 11/23/23 19:56 Oxycodone Hcl Immed Release 5 Mg Tablet PO 11/23/23 19:46 10 mg ONCE ONE Administration Medical Decision Making Lab Data 11/23/23 20:12 11/23/23 20:12 Labs: Lab Results 11/23/23 Range/Units 20:12 WBC 6.1 (4.8-10.8) X10*3/uL RBC 3.82 L (4.60-5.80) X10*6/uL Hgb 11.7 L (14.0-18.0) g/dl Hct 34.0 L (42.0-52.0) % MCV 89.0 (80.0-98.0) fL MCH 30.6 (27.0-33.0) pg MCHC 34.4 (31.0-36.0) g/dl RDW 13.3 (11.0-16.0) % Plt Count 140 L (160-400) X10*3/uL MPV 10.7 (9.4-12.4) fL Immature Gran % (Auto) 0.2 (0.0-0.4) % Neut % (Auto) 70.1 (45-73) % Lymph % (Auto) 22.6 (20-40) % [place] % (Auto) 4.6 (2-11) % Eos % (Auto) 2.3 (0-4) % Baso % (Auto) 0.2 (0-2) % Lymph # (Auto) 1.4 (1.2-4.9) X10*3/uL [place] # (Auto) 0.3 (0.1-1.2) X10*3/uL Eos # (Auto) 0.1 (0.0-0.4) X10*3/uL Baso # (Auto) 0.0 (0.0-0.2) X10*3/uL Abs Immat Gran (auto) 0.01 (0.00-0.03) X10*3/uL Absolute Neuts (auto) 4.3 (2.0-8.3) x10*3/uL Absolute Nucleated RBC 0.000 (0.0-0.012) X10*3/uL Nucleated RBC % (auto) 0.0 (0.0-0.2) /100WBC Sodium 139 (135-145) mmol/L Potassium 4.0 (3.3-5.1) mmol/L Chloride 104 (96-108) mmol/L Carbon Dioxide 27 (22-29) mmol/L Anion Gap 12 (12-20) BUN 17 H (9-16) mg/dL Creatinine 1.05 (0.5-1.4) mg/dL Estim Creat Clear Calc 88.2 Estimated GFR > 60 Random Glucose 204 H (60-115) mg/dL Calcium 8.9 D (8.4-10.2) mg/dL Troponin I High Sens < 2.7 (<3.5-35.0) ng/L Discharge Plan Discharge Clinical Impression: Cervical radiculopathy, Chest pain Patient Disposition: Home, Self-Care Additional Instructions: you likely have a pinched nerve in your neck which is sending tingling and pain down her arm I wrote for a steroid for several days, prednisone which sometimes helps reduce inflammation around the nerve and decrease the pain and tingling the EKG and test for heart attack were negative, the chest pain should be followed up if it continues with primary doctor who may refer you to a webfed offset press operator Follow with your doctor for the neck pain as well Return to the ER any time for worsening chest pain shortness of breath feeling faint or passing out any worse condition or any concerns For the neck pain if you develop a weakness in your arm return to the ER any change to bowel and bladder any worse condition or any concerns Prescriptions: New oxycodone 5 mg tablet 5 mg PO Q6H PRN (Reason: pain) Qty: 14 0RF Rx Instructions: Partial Fill upon patient request. diazepam [Valium] 5 mg tablet 5 mg PO TID PRN (Reason: muscle spasm) Qty: 14 0RF No Action hyoscyamine sulfate [Levsin/SL] 0.125 mg tablet, sublingual 0.125 mg PO Q12H PRN (Reason: dyspepsia) 90 Days Qty: 180 0RF tamsulosin 0.4 mg capsule 0.4 mg PO BEDTIME 90 Days Qty: 90 1RF naproxen [Naprosyn] 500 mg tablet 500 mg PO BEDTIME lisinopril 2.5 mg tablet 2.5 mg PO DAILY finasteride 5 mg tablet 5 mg PO DAILY prazosin 2 mg capsule 2 mg PO BEDTIME rosuvastatin 10 mg tablet 10 mg PO DAILY duloxetine 30 mg capsule,delayed release(DR/EC) 30 mg PO DAILY cyanocobalamin (vitamin B-12) 1,000 mcg Tablet 1,000 mcg PO DAILY duloxetine 60 mg capsule,delayed release(DR/EC) 60 mg PO DAILY oxycodone 5 mg Tablet 5 mg PO Q4H PRN (Reason: moderate pain) Qty: 10 0RF Rx Instructions: Partial Fill upon patient request. Metamucil 3.4 gram/5.4 gram powder 1 tbsp PO DAILY Qty: 660 0RF Rx Instructions: mix into at least 8 oz of water or juice before administering ondansetron 4 mg tablet,disintegrating 4 mg PO Q8H PRN (Reason: nausea and vomiting) Qty: 14 0RF quetiapine 25 mg tablet 25 mg PO BEDTIME baclofen 20 mg tablet 20 mg PO BEDTIME pregabalin 300 mg capsule 300 mg PO BID carbamazepine 200 mg tablet 200 mg PO BEDTIME metformin 1,000 mg tablet 1,000 mg PO BID (DME) blood sugar diagnostic Strip See Rx Instructions Not Applicable BID Qty: 10 Rx Instructions: As directed (DME) blood-glucose meter Kit See Rx Instructions .ROUTE .MEDSUPPLY Qty: 1 Rx Instructions: As directed bupropion HCl 300 mg tablet extended release 24 hr 300 mg PO QAM prazosin 5 mg capsule 5 mg PO BEDTIME lamotrigine 200 mg tablet 200 mg PO BID (DME) lancets [FreeStyle Lancets] 28 gauge misc See Rx Instructions topical BID Qty: 100 Rx Instructions: As directed docusate sodium [Colace] 100 mg capsule 200 mg PO BEDTIME Qty: 60 5RF polyethylene glycol 3350 [Miralax] 17 gram/dose powder 17 g PO DAILY Qty: 510 6RF pantoprazole 20 mg tablet,delayed release (DR/EC) 20 mg PO QAM Qty: 30 6RF
[2023-11-23 20:19] LABS: Basophils Percent Auto 0.2 % (0-2); Eosinophils Absolute Auto 0.1 X10*3/uL (0.0-0.4); Monocytes Percent Auto 4.6 % (2-11); PLT CLUMP 1; SCAN SMEAR FLAG 1
[2023-11-23 20:21] LABS: Eosinophils Percent Auto 2.3 % (0-4); Hemoglobin 11.7 g/dl (14.0-18.0); Imm Gran Abs Auto 0.01 X10*3/uL (0.00-0.03); Imm Gran Pct Auto 0.2 % (0.0-0.4); Lymphocytes Absolute Auto 1.4 X10*3/uL (1.2-4.9); Lymphocytes Percent Auto 22.6 % (20-40); Mean Corpuscular HGB Conc 34.4 g/dl (31.0-36.0); Mean Corpuscular Hemoglobin 30.6 pg (27.0-33.0); Mean Platelet Volume 10.7 fL (9.4-12.4); Monocytes Absolute Auto 0.3 X10*3/uL (0.1-1.2); Neutrophils Absolute Auto 4.3 x10*3/uL (2.0-8.3); Neutrophils Percent Auto 70.1 % (45-73); Red Blood Count 3.82 X10*6/uL (4.60-5.80); Red Cell Distribution Width 13.3 % (11.0-16.0)
[2023-11-23] MEDS: Ketorolac Tromethamine 30 MG/ML VIAL IM (20:29)
[2023-11-23 20:31] LABS: Anion Gap 12 (12-20); Blood Urea Nitrogen 17 mg/dL (9-16); Calcium 8.9 mg/dL (8.4-10.2); Carbon Dioxide 27 mmol/L (22-29); Chloride 104 mmol/L (96-108); Creatinine Clr Calc Pharmacy 88.2; Estimated Glomerular Filt Rate > 60; Glucose Random 204 mg/dL (60-115); Sodium 139 mmol/L (135-145)
[2023-11-23 20:34] LABS: White Blood Count 6.1 X10*3/uL (4.8-10.8)
[2023-11-23 20:36] LABS: MANUAL DIFF FLAG NO; Platelet Count 140 X10*3/uL (160-400)
[2023-11-23 20:40] LABS: Troponin-I High Sensitivity < 2.7 ng/L (<3.5-35.0)
[2023-11-23] MEDS: oxyCODONE HCl Immed Release 5 MG TABLET PO (21:10)
[2023-11-23 21:57] VITALS: BP 127/86; PULSE 62; RESP 18; TEMP 36.6; O2SAT 97
== END 2023-11-23 22:04 | disposition home or self-care (01) ==
PROVIDERS: Physician Assistant Medical; Emergency Provider Emergency Medicine Emergency Medical Services; PCP Internal Medicine
DX: M54.12 Radiculopathy, cervical region (principal); R07.9 Chest pain, unspecified; E11.9 Type 2 diabetes mellitus without complications
CPT/HCPCS: 36415; 71046; 80048; 84484; 85025; 93005; 96372; 99284; J1885

== ENCOUNTER → 2023-11-23 19:55 | Outpatient (BNV) | payer OTHER, SELFPAY | PROVIDERS: Emergency Provider Emergency Medicine Emergency Medical Services; PCP Internal Medicine; Visit Provider Internal Medicine Cardiovascular Disease | DX: R94.31 Abnormal electrocardiogram [ECG] [EKG] (principal) | CPT/HCPCS: 93010 ==

== ENCOUNTER 2023-12-02 06:36 | Outpatient (REF) | payer OTHER, SELFPAY ==
[2023-12-02 06:49] LABS: MANUAL DIFF FLAG NO
[2023-12-02 07:30] LABS: Basophils Percent Auto 0.2 % (0-2); Eosinophils Absolute Auto 0.1 X10*3/uL (0.0-0.4); Eosinophils Percent Auto 2.3 % (0-4); Hematocrit 36.4 % (42.0-52.0); Hemoglobin 12.4 g/dl (14.0-18.0); Imm Gran Abs Auto 0.02 X10*3/uL (0.00-0.03); Imm Gran Pct Auto 0.3 % (0.0-0.4); Lymphocytes Absolute Auto 1.8 X10*3/uL (1.2-4.9); Mean Corpuscular HGB Conc 34.1 g/dl (31.0-36.0); Mean Corpuscular Hemoglobin 30.6 pg (27.0-33.0); Mean Corpuscular Volume 89.9 fL (80.0-98.0); Monocytes Absolute Auto 0.4 X10*3/uL (0.1-1.2); Monocytes Percent Auto 6.1 % (2-11); Neutrophils Absolute Auto 3.8 x10*3/uL (2.0-8.3); Neutrophils Percent Auto 62.1 % (45-73); Platelet Count 154 X10*3/uL (160-400); Red Blood Count 4.05 X10*6/uL (4.60-5.80); Red Cell Distribution Width 13.1 % (11.0-16.0); White Blood Count 6.1 X10*3/uL (4.8-10.8)
[2023-12-02 07:43] LABS: Estimated Average Glucose 146 mg/dL; Hemoglobin A1c % 6.7 % (<6.0)
[2023-12-02 07:44] LABS: Creatinine Urine 153.57 mg/dL; Microalbum/Creatinine Ratio Ur 6.5 ug/mg cr (<30)
[2023-12-02 07:57] LABS: Alanine Aminotransferase 14 U/L (0-40); Albumin Level 4.1 g/dL (3.5-5.0); Alkaline Phosphatase 99 U/L (39-117); Anion Gap 11 (12-20); Aspartate Amino Transferase 12 U/L (5-37); Bilirubin Total 0.2 mg/dL (0.0-1.0); Blood Urea Nitrogen 15 mg/dL (9-16); Calcium 9.1 mg/dL (8.4-10.2); Carbon Dioxide 28 mmol/L (22-29); Chloride 107 mmol/L (96-108); Cholesterol 141 mg/dL (<200); Estimated Glomerular Filt Rate > 60; Glucose Random 104 mg/dL (60-115); HDL Cholesterol 66 mg/dL (>40); LDL Cholesterol Calculated 60 mg/dL (<100); Sodium 142 mmol/L (135-145); Total Protein 6.5 g/dL (6.5-8.0); Triglycerides 75 mg/dL (<150)
== END 2023-12-02 06:37 | disposition home or self-care (01) ==
LOC: HO.LAB 06:36
PROVIDERS: PCP Internal Medicine; Visit Provider Internal Medicine
DX: Z00.00 Encounter for general adult medical examination without abnormal findings (principal); E11.9 Type 2 diabetes mellitus without complications; E78.00 Pure hypercholesterolemia, unspecified; F43.12 Post-traumatic stress disorder, chronic
CPT/HCPCS: 36415; 80053; 80061; 82043; 82570; 83036; 85025

== ENCOUNTER 2023-12-11 09:07 | Outpatient (AMB) | payer OTHER, SELFPAY ==
[2023-12-11 09:25] VITALS: BP 104/56; PULSE 78; RESP 16; O2SAT 97; BMI 22.3
--- NOTE | 2023-12-11 09:25 | A.OFFVIS_ITS ---
Intake Vital Signs 12/11/23 09:25 Height 6 ft Weight 164 lb 4 oz BMI 22.3 BP 104/56 L Blood Pressure Location Lt brachial Position Sitting Respiration 16 Pulse 78 Pulse Source Pulse Oximeter Pulse Oximetry (%) 97 Oxygen Delivery Method Room Air Intake Visit Reasons: Sciatica/back pain Allergies linagliptin [From TRADJENTA] Allergy (Intermediate, Verified 12/11/23 09:25) RASH Iqsxkxa-LVL-NtK Reductase Inhibitor [LNBGBMF-EQL-QAD REDUCTASE INHIBITOR] Allergy (Intermediate, Verified 12/11/23 09:25) ITCHY,SKIN BREAKDOWN HPI HPI Comments History of Present Illness Details Linus presents back to the office today for follow-up. He was last seen here 03/14/2023 where he underwent injection for greater trochanteric bursitis. He reports since the injection he has no longer having pain to the lateral thigh. Today he is complaining of pain to the left lower back. Previously had left SI joint fusion, he also has sacral nerve stimulator, the device is near the area of his pain. He is adamant that the pain is not related to the device. Pain is worse with moving, bending, twisting and palpation. He does not have any pain to the groin. He does report some radiation of the pain to his left thigh posteriorly Currently he is using THC for his pain Prior: Linus is a pleasant 52 year old male who presents back to the office for follow up left hip pain. Patient reports he was seen in the office last month for similar pain and was prescribed Tizanidine three times daily. States he tried but did not receive any relief with the muscle relaxer, he even tried taking 2 and 3 tabs at once with no help. He also went to the dispensary where he bought CBD cream but did not note any benefit with this either. Prior: Linus is very pleasant 52 years old gentleman who is in my office again with new complaint. He reports that pain with movement related to sacroiliac joint on the left with was addressed with left SI joint fusion performed on 09/07/2022 is not bothering him anymore. However he reports that 2 weeks ago experience pain in the left side of the lower back radiating to the left flank. He reports the pain is getting more severe his torso flexion and rotation. He has been implanted sacral nerve stimulation device near this area so the trigger point injections are potentially risky for disruption of the stimulating leads. It sound to me that the patient is suffering from myofascial pain syndrome. To begin his treatment I offered him to start him on muscle relaxant tizanidine 2 mg t.i.d.. If this does will help him minimally without side effects I will increase the doses of the tizanidine. We agreed that he will give us a call in couple of weeks and if pain is continue to bother him schedule yet 1 more appointment. Prior: ? He received bilateral sacroiliac joint injections diagnostic with ropivacaine and he had 100% pain relief for the 1st 7 hours after the injection. He received diagnostic injection on 08/07/2022.? [facility] Medical History (Updated 11/24/23 @ 00:01 by Raleigh Glaser) History of COVID-19 Low back pain Peripheral neuropathy Arthritis Unintentional weight loss PTSD (post-traumatic stress disorder) Hematuria Left lower quadrant pain Urinary frequency Type 2 diabetes mellitus with unspecified complications Other obstructive and reflux uropathy Benign prostatic hyperplasia with lower urinary tract symptoms Urgency incontinence Hypercalcemia Surgical History History of esophagogastroduodenoscopy (EGD) Anal fissure History of surgery Hx of cystoscopy Hx of cardiac catheterization History of prostate surgery Hx of cystoscopy Hx of cystoscopy H/O colonoscopy Social History Are you a primary nurse care manager to a significant other at home: No 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 Answers questions appropriately. Fully engaged in examination. Skin: warm, dry, intact without visible rashes or lesions. HEENT: Normocephalic. Conjuntivae clear without exudate. Sclera non-icteric. Hearing intact. Cardiac: External chest normal in appearance. Respiratory: No signs of trauma. No signs of respiratory distress. No cough, audible wheezing or stridor. Abdomen: without gross distension. MS:Significant tenderness to palpation over musculature just proximal and lateral to the stimulator. Patient ambulates with antalgic gait with cane for assistance Neurological: Oriented to person, place, time and situation. Thought process intact. No gait abnormalities appreciated. Psychiatric: Appropriate mood and affect. Good judgment and insight. Results Reviewed Results Reviewed: EXAMINATION: XR PELVIS XR HIP, BILATERAL CLINICAL INFORMATION: Chronic pain syndrome. COMPARISON: Several fluoroscopic images of pelvis and SI joints are obtained 10/29/2022, 09/07/2022. TECHNIQUE: 2 views each hip. 2 views pelvis. FINDINGS: Left Hip: There is mild reduction left hip joint space but no bony erosive changes, fracture, dislocation or loose bodies. The soft tissues are normal. Incidental note is made of left sacral electrode for pain management. Right Hip: There is minimal loss of right hip joint space. No bony erosive changes, loose bodies or soft tissue swelling. AP Pelvis: There is normal symmetry of bilateral SI joints. Evidence of left SI joint fusion device IMPRESSION: 1. Mild early degenerative changes bilateral hip joints. No visible acute fracture, dislocation or subluxation seen. ? 2. There is evidence of left SI joint fusion device. Assessment & Plan Assessment & Plan (1) Left hip pain: Code(s): M25.552 - Pain in left hip (2) Pain of both sacroiliac joints: Code(s): M53.3 - Sacrococcygeal disorders, not elsewhere classified (3) Osteoarthritis of hips, bilateral: Code(s): M16.0 - Bilateral primary osteoarthritis of hip (4) Chronic pain syndrome: Code(s): G89.4 - Chronic pain syndrome (5) Myofascial pain syndrome: Code(s): M79.18 - Myalgia, other site (6) Myofascial pain syndrome of lumbar spine: Code(s): M79.18 - Myalgia, other site Plan Linus is a pleasant 52 year old male who presented back to the office for worsening left lower back pain History, physical exam and provocative testing consistent with myofascial back pain Tizanidine 2 mg p.o. 3 times daily. Patient advised on cautions for use Diclofenac topical, apply to most painful area twice daily as needed Will schedule for fluoroscopy guided trigger point injections with local anesthetic. Fluoroscopy guidance is needed to prevent disruption of the stimulator leads. All questions and concerns were addressed during visit today. Patient will follow up after injections, sooner if needed. Medications: New tizanidine 2 mg PO TID PRN 90 tabs 0RF muscle spasticity diclofenac sodium 3% apply to most painful area twice daily as needed for pain 1 appl topical BID 100 grams 0RF Coding Level of Care Code Est Pt Level 3 (44824) Diagnoses Left hip pain M25.552 Pain of both sacroiliac joints M53.3 Osteoarthritis of hips, bilateral M16.0 Chronic pain syndrome G89.4 Myofascial pain syndrome M79.18 Myofascial pain syndrome of lumbar spine M79.18
== END 2023-12-11 09:47 | disposition home or self-care (01) ==
PROVIDERS: PCP Internal Medicine; Visit Provider Registered Nurse Emergency
DX: M25.552 Pain in left hip (principal); M53.3 Sacrococcygeal disorders, not elsewhere classified; M16.0 Bilateral primary osteoarthritis of hip; G89.4 Chronic pain syndrome; M79.18 Myalgia, other site
CPT/HCPCS: 99213

== ENCOUNTER → 2023-12-11 09:07 | Outpatient (BNVA) | payer OTHER, SELFPAY | PROVIDERS: PCP Internal Medicine; Visit Provider Registered Nurse Emergency | DX: N30.10 Interstitial cystitis (chronic) without hematuria (principal); N32.81 Overactive bladder; N40.1 Benign prostatic hyperplasia with lower urinary tract symptoms; N13.8 Other obstructive and reflux uropathy; R39.15 Urgency of urination; R35.0 Frequency of micturition; N20.0 Calculus of kidney; M25.552 Pain in left hip; M53.3 Sacrococcygeal disorders, not elsewhere classified; M16.0 Bilateral primary osteoarthritis of hip; M79.18 Myalgia, other site; G89.4 Chronic pain syndrome | CPT/HCPCS: 51798; 81003; 99212 ==

== ENCOUNTER 2023-12-11 14:06 | Outpatient (AMB) | payer OTHER, SELFPAY ==
--- NOTE | 2023-12-11 15:02 | A.OFFVIS_ITS ---
Intake Visit Reasons: 6 mo follow up/ PVR Intake Note: Patient is present for PVR Urology Med: Prazosin & Finasteride Antibiotic Allergy: none Blood Thinner: none PVR 0 mL Assistant Associate Full Professor Required: No Accompanied by: Self / Same As Patient Allergies linagliptin [From TRADJENTA] Allergy (Intermediate, Verified 12/11/23 15:13) RASH Kqszxja-JCU-RqE Reductase Inhibitor [YVFVMIX-OPZ-YTC REDUCTASE INHIBITOR] Allergy (Intermediate, Verified 12/11/23 15:13) ITCHY,SKIN BREAKDOWN HPI Comments Details: 12/11/23--Status post InterStim pacemaker 11/12/2022, he is doing well on program 8 Complains of constipation. I have reviewed medications he is prescribed MiraLax and fiber. He states currently he has not taking oxycodone The patient was not in the BD and June [address] scan was done at that time which noted small left kidney stones. Plan ---monitor kidney stones, renal ultrasound in 4 months patient will follow up with nurse practitioner Review of chart 06/11/23--Linus is a pleasant 53-year-old male patient of Dr. Bates. He has a past medical history of low back pain, peripheral neuropathy, arthritis, PTSD, type 2 diabetes, hypercalcemia, hematuria, and urinary frequency. He is being follow-up on today via telehealth for his history of lower urinary tract symptoms, nocturia, prostatitis, and interstitial cystitis. In discussion with the patient today reports to be doing and feeling well. He reports noting significant improvement in lower urinary tract symptoms since having InterStim placed. He reports compliance with finasteride, prazosin, and Flomax daily. He discusses having InterStim at level 7. He also discusses his longstanding history of failed oral medication therapy as well as bladder Botox. He discusses having had laser prostatectomy in 2019. Recent PSA results reviewed with the patient today. 06/17-- 0.3. When asked he denies urinary urgency, urinary frequency, incontinence, nocturia, hematuria, dysuria, foul smelling urine, changes to urinary stream, flank pain, fever, and or chills. He is happy with her current voiding parameters. Failed oral medications including oxybutynin, tolterodine, bed trick Failed Botox injections bladder Interstitial cystitis Biopsy proven November 2021 - Inflamed and congested mucosa 11/14 hydrodistention adverse event with complicated UTI Microgen 12/15 Enterococcus linezolid sensitive - 1 week trial Prostatitis Recurrent Occasional flares Last episode started July 2021 DNA analysis sensitivity to clindamycin and linezolid - Staphylococcus and Corynebacterium Lower urinary tract symptoms Urgency and frequency consistent with diabetic cystopathy - failed from medications oxybuytinin and tolterodine Underwent laser prostatectomy in 2018 Diabetic cystopathy with urgency - Had recurrent hematuria 12/14 Procedures - 11/14 Cystoscopy with fulguration neovascularity - 02/14 cystoscopy with bladder Botox Imaging 10/16 CT scan TURP defect, no stones Prior medications - oxybutynin 10 mg poor response, myrbetriq 12/11/23--Plan ---monitor kidney stones, renal ultrasound in 4 months patient will follow up with nurse practitioner [facility] Medical History History of COVID-19 Low back pain Peripheral neuropathy Arthritis Unintentional weight loss PTSD (post-traumatic stress disorder) Hematuria Left lower quadrant pain Urinary frequency Type 2 diabetes mellitus with unspecified complications Other obstructive and reflux uropathy Benign prostatic hyperplasia with lower urinary tract symptoms Urgency incontinence Hypercalcemia Surgical History History of esophagogastroduodenoscopy (EGD) Anal fissure History of surgery Hx of cystoscopy Hx of cardiac catheterization History of prostate surgery Hx of cystoscopy Hx of cystoscopy H/O colonoscopy Social History Are you a primary point of care specialist to a significant other at home: No Do you presently have visiting nurse or other home services: Yes ([employer]) Alcohol intake: never Patient Tobacco Use Status: Former Tobacco user Quit Date: 2006 Tobacco use type: Cigarette Second Hand Smoke Exposure: No Substance Use Type: Marijuana service: Yes Review of Systems Const All systems reviewed & are unremarkable except as noted in HPI and below Reports no additional complaints Eyes Reports no additional complaints ENT Reports no additional complaints Card Reports no additional complaints Resp Reports no additional complaints GI Reports no additional complaints Reports as per HPI Musc Reports no additional complaints Skin/Breast Reports system reviewed and no additional complaints, except as documented Neuro Reports no additional complaints Psych Reports no additional complaints Endo Reports no additional complaints Jarrett/Lymph Reports no additional complaints Aller/Immun Reports no additional complaints Office Procedures Post Void Residual Post Residual Void Post Void Residual (PVR): 0 [id number]-[id number] Void Residual by ultrasound Results AMB Urinalysis, Automated UA Leukoctes 0 Jt/uL Last Edit by Beryl Olivera [facility] on 12/11/23 15:13 UA Nitrite Negative Last Edit by Beryl Olivera [facility] on 12/11/23 15:13 UA Urobilinogen 0.2 mg/dL Last Edit by Beryl Olivera [facility] on 12/11/23 15:1 3 UA Protein 0 mg/dL Last Edit by Beryl Olivera [facility] on 12/11/23 15:13 UA pH 6.0 Last Edit by Beryl Olivera [facility] on 12/11/23 15:13 UA Blood 0 Mikie/uL Last Edit by Beryl Olivera [facility] on 12/11/23 15:13 UA Specific [place] 6.0 Last Edit by Beryl Olivera [facility] on 12/11/23 15:13 UA Ketone Negative Last Edit by Beryl Olivera [facility] on 12/11/23 15:13 UA Bilirubin 0 mg/dL Last Edit by Beryl Olivera [facility] on 12/11/23 15:13 UA Glucose 0 mg/dL Last Edit by Beryl Olivera [facility] on 12/11/23 15:13 Results Reviewed Results Reviewed: Laboratory Last Values Urine pH (Auto) 6.0 12/11/23 15:11 Specific [place] (Auto) 6.0 12/11/23 15:11 Urine Protein (Auto) 0 mg/dL 12/11/23 15:11 Glucose (UA)(Auto) 0 mg/dL 12/11/23 15:11 Urine Ketones (Auto) Negative 12/11/23 15:11 Urine Blood (Auto) 0 Mikie/uL 12/11/23 15:11 Urine Nitrite (Auto) Negative 12/11/23 15:11 Urine Bilirubin (Auto) 0 mg/dL 12/11/23 15:11 Urine Urobilinogen (Auto) 0.2 mg/dL 12/11/23 15:11 Leukocyte Esterase (Auto) 0 Jt/uL 12/11/23 15:11 Date of Service: 07/02/23 EXAMINATION: CT abdomen pelvis w IV con CLINICAL INFORMATION: Reason for Exam LLQ pain COMPARISON: No prior CT available for comparison. TECHNIQUE: Multidetector volumetric imaging was performed from the superior aspect of the liver through the pubic symphysis 100 mL of Omnipaque 350 injected Sagittal and coronal reformatted images were obtained on the technologist's workstation. This CT examination was performed using dose optimization techniques as appropriate, variously including the following: *Automated exposure control *Adjustment of mA and/or kV according to patient size (this includes techniques or standardized protocols for targeted exams where dose is matched to indication/reason for exam; i.e. extremities or head) *Use of iterative reconstruction technique DLP: 457 mGy-cm FINDINGS: LOWER THORAX: Included lung bases are clear. HEPATOBILIARY: No focal hepatic lesions. No biliary ductal dilatation. GALLBLADDER: Gallbladder unremarkable. SPLEEN: Spleen is normal in size. PANCREAS: No focal mass or ductal dilatation. STOMACH AND GASTROINTESTINAL TRACT: Stomach is grossly unremarkable. Mildly dilated small bowel loops in the left upper quadrant measuring up to 3.2 cm, some of the bowel loops have thickened wall, this is nonspecific CT findings, no definite high degree obstruction or perforation is present. This could be sequela of ileitis, infection, inflammatory, Crohn's among other entities. The distal loops of the small bowel are normal in diameter. No CT evidence of appendicitis. ADRENALS: No adrenal nodules. KIDNEYS/URETERS: There is nonobstructing stones in the right kidney the larger one measures 4 mm. No hydronephrosis. No perinephric fat stranding. URINARY BLADDER: Partially decompressed. PELVIC VISCERA: Unremarkable PERITONEUM: No free air or fluid. LYMPH NODES: No lymphadenopathy. VASCULAR:Abdominal aorta normal in size, no aneurysm found. BONES, ABDOMINAL WALL AND SOFT TISSUES: Left iliac bone radiolucency 2.2 cm well-defined sclerotic borders suggest most likely nonaggressive bone lesion such as bone cyst, and chondroma among others. There are age-related degenerative changes of the lumbar spine. There is an electronic device embedded in the subcutaneous fat of the left buttock the tip in the pelvis. Sclerotic density in the vertebral body of L3 probably bone islands. CT/CT abdomen pelvis w IV con IMPRESSION: * Mildly dilated small bowel loops in the left upper quadrant, some of the bowel loops have thickened wall, this is nonspecific CT findings, no definite high degree obstruction or perforation is present. This could be sequela of ileitis, infection, inflammatory, Crohn's among other entities. Please correlate clinically, follow-up nonemergent barium study upper GI and small bowel series could be utilized for further investigation. * Nonobstructing stones in the right kidney. No hydronephrosis. 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 Other noncritical findings include electronic device embedded in the subcutaneous fat of the left buttock the tip in the pelvis. Assessment & Plan Assessment & Plan (1) Interstitial cystitis (chronic) without hematuria: Code(s): N30.10 - Interstitial cystitis (chronic) without hematuria Category: Medical (2) Overactive bladder: Code(s): N32.81 - Overactive bladder Category: Medical (3) Urinary frequency: Code(s): R35.0 - Frequency of micturition Category: Medical (4) BPH w urinary obs/LUTS: Code(s): N40.1 - Benign prostatic hyperplasia with lower urinary tract symptoms; N13.8 - Other obstructive and reflux uropathy Category: Medical (5) Urinary urgency: Code(s): R39.15 - Urgency of urination Category: Medical (6) Kidney stone on left side: Code(s): N20.0 - Calculus of kidney Category: Medical Plan Renal ultrasound in 4 months follow-up with nurse practitioner in 6 months Orders: Orders AMB Urinalysis Automated 12/11/23 Z13.9 - Encounter for screening, unspecified AMB Post Void Residual by ultrasound 12/11/23 N39.8 - Other specified disorders of urinary system US renal BI 4 Months Z87.442 - Personal history of urinary calculi Patient Instructions: The patient had an opportunity to ask questions regarding treatment plan. All questions were answered. Imaging, Laboratory studies and physical exam results were discussed and reviewed in detail. No major barriers to understanding were identified. The patient expressed understanding and agreement with the above treatment plan. The patient is aware they should contact our office by phone for worsening of their current condition or the appearance of new symptoms. Compliance is encouraged with any medications and followup testing that is ordered. It is a privilege to be allowed the opportunity to participate in the urologic care of your patient. If you have any questions or concerns regarding treatment for the above conditions please do not hesitate to contact me. The office telephone contact is [phone]. This note is constructed in part using voice recognition software. While every effort has been made to ensure accuracy youth director errors may have been included. Yours sincerely, Tiffanie Tang MD Coding Level of Care Code Est Pt Level 4 (97452) Diagnoses Interstitial cystitis (chronic) without hematuria N30.10 Overactive bladder N32.81 Urinary frequency R35.0 BPH w urinary obs/LUTS N40.1; N13.8 Urinary urgency R39.15 Kidney stone on left side N20.0 CPT Codes Post Residual Void - PVR CPT Code: 51171-Uhzw Void Residual by ultrasound ([id number])
== END 2023-12-11 15:35 | disposition home or self-care (01) ==
PROVIDERS: PCP Internal Medicine; Visit Provider Urology
DX: N30.10 Interstitial cystitis (chronic) without hematuria (principal); N32.81 Overactive bladder; R35.0 Frequency of micturition; N40.1 Benign prostatic hyperplasia with lower urinary tract symptoms; N13.8 Other obstructive and reflux uropathy; R39.15 Urgency of urination; N20.0 Calculus of kidney
CPT/HCPCS: 99214

== ENCOUNTER 2024-01-07 07:13 | Outpatient (REF) | payer OTHER, SELFPAY | END 2024-01-07 07:14 | disposition home or self-care (01) | LOC: CF 07:13 | PROVIDERS: PCP Internal Medicine; Visit Provider Anesthesiology | DX: M79.18 Myalgia, other site (principal); M16.0 Bilateral primary osteoarthritis of hip; M53.3 Sacrococcygeal disorders, not elsewhere classified; M25.552 Pain in left hip; G89.4 Chronic pain syndrome | CPT/HCPCS: 20552; J2795; J3301 ==

== ENCOUNTER 2024-01-07 14:01 | Outpatient (AMB) | payer OTHER, SELFPAY ==
--- OUTSIDE RECORDS SUMMARY | 2024-01-07 14:03 | XMS_ITS | Continuity of Care Document ---
Author Organization [facility] ion Address [address] [place] [id number]- Care Team Providers Care Carbon Brusher Assembler Name Role Phone Alessandra Bates MD Primary Care Physician Encounter [facility] Date(s): 12/24/23 - 12/25/[address] [address] Discharge Disposition: A-D/C Home Attending Physician: Alessandra Bates MD Admitting Physician: Alessandra Bates MD Referring Physician: Alessandra Bates MD Allergies, [...] Index: 64% ( crippled ) on06/14/17; initial Wilson: 17 on 06/14/17 2SOAPP-R; 25 on 06/14/17 3Pain relevant problem list includes: See below 4initial Wilson: 17 on 06/14/17 Social History Social History Type Response Smoking Status Former smoker; Stopp ed at age: 39; entered on: 06/28/17 Sex Patient Care team information Care Team Personnel Name: Alessandra Bates MD Position: [facility] Outreach Member Role: PCP Address: Address: [address] [place] [address] [address] [place] [address]- Care Team Related Persons Name: JENNIFER EAST Address: home [address] [place] [address] Name: TARA JEFFERSON Address: home [address] [place] [address]
--- OUTSIDE RECORDS SUMMARY | 2024-01-07 14:04 | XMS_ITS | Patient Health Record ---
Author Organization Nehemias Walter III, MD Address [address] [place] [address] Care Team Providers Care Labor Arbitrator Name Role Phone Jana TOWNSEND, [facility] Primary Care Provider Nehemias Downs Unavailable [phone] ALLERGIES Allergen (clinical drug ingredient) Drug/Non Drug [...] Notes Problem Former smoker (Z87.891) Active confirmed [id number] He seems highly motivated not to smoke. We discussed a plan to prevent relapse in times of stress and illness. Problem Mixed hyperlipidemia (E78.2) Active confirmed [id number] His lipids have been well controlled despite his statin intolerance. Problem Essential hypertension (I10) Active confirmed [id number] His blood pressure today was 118/72 which is well controlled. Problem Degenerative disc disease, cervical (M50.30) Active confirmed [id number] He has had surgery and fusion in his neck. He is mildly symptomatic at the current time. He denies taking aspirin or ibuprofen. Problem Statin intolerance (Z78.9) Active confirmed [id number] He has not been taking a statin recently. Problem Purpura (D69.2) Active confirmed [id number] His laboratory evaluation showed normal blood clotting. No bruising was noted on examination today. He was reassured that all seems to be well. It does not seem necessary in the absence of significant bleeding to test his platelet functions. Problem Type 2 diabetes mellitus without complication, without long-term current use of insulin (E11.9) Active confirmed [id number] No change in his current regimen as indicated. PLAN OF TREATMENT Pending Test Test Name Order Date CBC w DIFF 07/16/2012 ROUTINE CULTURE 07/16/2012 von Willebrand Ag Multimeric 03/01/2021 Mixing Study (PT/PTT) 03/01/2021 Insurance Providers Payer Name Payer Address Payer Phone Subscriber Number Group Number Insured Name Patient Relationship to Insured Coverage Start Date Coverage End Date [facility] [address] [place] [address] [phone] [facility] [id number] KAVON GUERRERO Self - patient is the insured MEDICAL (GENERAL) HISTORY Medical History History ICD Code essential hypertension hyperlipidemia adult-onset diabetes mellitus statin intolerance depression former smoker noncardiac chest pain degenerative joint disease cervical spin e cervical radiculopathy L2-L5 Surgical History Surgery Date(Month/Year) negative cardiac catheterization 03/2020 appendectomy anterior cervical fusion and discectomy, Dr. Goodman 2014
--- NOTE | 2024-01-07 14:11 | MHC.OFFVIS ---
Vital Signs 01/07/24 15:07 01/07/24 15:08 Height 6 ft Weight 164 lb BMI 22.2 BP 118/74 118/74 Blood Pressure Location Lt brachial Lt brachial Position Sitting Sitting Respiration 20 Pulse 76 Pulse Source Pulse Oximeter Pulse Oximetry (%) 98 Oxygen Delivery Method Room Air Comment Pre-Op Intake Visit Reasons: Lumbar TPI w/ fluoro Allergies linagliptin [From TRADJENTA] Allergy (Intermediate, Verified 12/11/23 15:13) RASH Qwenyyg-FOM-TjG Reductase Inhibitor [LUVZXUM-GNT-QLN REDUCTASE INHIBITOR] Allergy (Intermediate, Verified 12/11/23 15:13) ITCHY,SKIN BREAKDOWN PFSH Medical History History of COVID-19 Low back pain Peripheral neuropathy Arthritis Unintentional weight loss PTSD (post-traumatic stress disorder) Hematuria Left lower quadrant pain Urinary frequency Type 2 diabetes mellitus with unspecified complications Other obstructive and reflux uropathy Benign prostatic hyperplasia with lower urinary tract symptoms Urgency incontinence Hypercalcemia Surgical History History of esophagogastroduodenoscopy (EGD) Anal fissure History of surgery Hx of cystoscopy Hx of cardiac catheterization History of prostate surgery Hx of cystoscopy Hx of cystoscopy H/O colonoscopy Social History Are you a primary attending ambulatory care to a significant other at home: No Do you presently have visiting nurse or other home services: Yes ([employer]) Alcohol intake: never Patient Tobacco Use Status: Former Tobacco user Quit Date: 2006 Tobacco use type: Cigarette Second Hand Smoke Exposure: No Substance Use Type: Marijuana service: Yes Physical Exam Vital Signs: Last Vital Signs Pulse 76 01/07/24 15:07 Resp 20 01/07/24 15:07 BP 118/74 01/07/24 15:08 Pulse Ox 98 01/07/24 15:07 Oxygen Delivery Method Room Air 01/07/24 15:07 BMI result Body Mass Index 22.2 Assessment & Plan Assessment & Plan (1) Left hip pain: Code(s): M25.552 - Pain in left hip Category: Medical (2) Pain of both sacroiliac joints: Code(s): M53.3 - Sacrococcygeal disorders, not elsewhere classified Category: Medical (3) Osteoarthritis of hips, bilateral: Code(s): M16.0 - Bilateral primary osteoarthritis of hip Category: Medical (4) Chronic pain syndrome: Code(s): G89.4 - Chronic pain syndrome Category: Medical (5) Myofascial pain syndrome: Code(s): M79.18 - Myalgia, other site Category: Medical Plan: Trigger point injection right lumbar side. Informed consent was explained thoroughly to the patient. All questions about benefits and risks for the procedure were answered. Patient came to the examination room and was positioned left lateral decubitus position. The patient himself pointed out to the most painful area on his right lateral lumbar spine. Time out was performed delineating name and of the patient, allergies and the nature of the procedure. The lower back and right iliac crest of the patient were prepped with ChloraPrep prepped and draped with sterile utility towels. Sterilely obtained 10 cc of ropivacaine 0.5% mixed with Kenalog 40 mg was injected into most painful area in fan-like fashion. Patient tolerated procedure well. (6) Myofascial pain syndrome of lumbar spine: Code(s): M79.18 - Myalgia, other site Category: Medical Plan Linus is a pleasant 52 year old male who presented back to the office for worsening left lower back pain History, physical exam and provocative testing consistent with myofascial back pain Tizanidine 2 mg p.o. 3 times daily. Patient advised on cautions for use Diclofenac topical, apply to most painful area twice daily as needed Will schedule for fluoroscopy guided trigger point injections with local anesthetic. Fluoroscopy guidance is needed to prevent disruption of the stimulator leads. All questions and concerns were addressed during visit today. Patient will follow up after injections, sooner if needed. Orders: Orders FL guidance in treatment room Today M79.18 - Myalgia, other site Coding Level of Care Code Procedure Only Diagnoses Left hip pain M25.552 Pain of both sacroiliac joints M53.3 Osteoarthritis of hips, bilateral M16.0 Chronic pain syndrome G89.4 Myofascial pain syndrome M79.18 Myofascial pain syndrome of lumbar spine M79.18
[2024-01-07 15:07] VITALS: BP 118/74; PULSE 76; RESP 20; O2SAT 98; BMI 22.2
[2024-01-07 15:08] VITALS: BP 118/74
== END 2024-01-07 14:53 | disposition home or self-care (01) ==
LOC: HO.PMCPRC 14:01
PROVIDERS: PCP Internal Medicine; Visit Provider Anesthesiology
DX: M79.18 Myalgia, other site (principal)
CPT/HCPCS: 20552

== ENCOUNTER 2024-02-12 14:09 | Outpatient (AMB) | payer OTHER, SELFPAY ==
--- NOTE | 2024-02-12 14:26 | A.OFFVIS_ITS ---
Vital Signs 02/12/24 14:29 Height 6 ft Weight 166 lb 4 oz BMI 22.5 BP 105/64 Blood Pressure Location Rt brachial Position Sitting Pulse 84 Pulse Source Pulse Oximeter Pulse Oximetry (%) 97 Oxygen Delivery Method Room Air Intake Visit Reasons: s/p TPI Allergies linagliptin [From TRADJENTA] Allergy (Intermediate, Verified 02/12/24 14:31) RASH Yfkbvvt-AXF-GpK Reductase Inhibitor [NOWGFDO-YQM-KKM REDUCTASE INHIBITOR] Allergy (Intermediate, Verified 02/12/24 14:31) ITCHY,SKIN BREAKDOWN HPI Comments Details: Patient presents back to the office today 1 month status post lumbar trigger point injections. He reports no improvement in the pain since the injections. Today patient complaining of pain over left PSIS, worse with sitting for long periods of time, standing and lying on the affected side. Prior: Linus presents back to the office today for follow-up. He was last seen here 03/14/2023 where he underwent injection for greater trochanteric bursitis. He reports since the injection he has no longer having pain to the lateral thigh. Today he is complaining of pain to the left lower back. Previously had left SI joint fusion, he also has sacral nerve stimulator, the device is near the area of his pain. He is adamant that the pain is not related to the device. Pain is worse with moving, bending, twisting and palpation. He does not have any pain to the groin. He does report some radiation of the pain to his left thigh posteriorly Currently he is using THC for his pain Prior: Linus is a pleasant 52 year old male who presents back to the office for follow up left hip pain. Patient reports he was seen in the office last month for similar pain and was prescribed Tizanidine three times daily. States he tried but did not receive any relief with the muscle relaxer, he even tried taking 2 and 3 tabs at once with no help. He also went to the dispensary where he bought CBD cream but did not note any benefit with this either. Prior: Linus is very pleasant 52 years old gentleman who is in my office again with new complaint. He reports that pain with movement related to sacroiliac joint on the left with was addressed with left SI joint fusion performed on 09/07/2022 is not bothering him anymore. However he reports that 2 weeks ago experience pain in the left side of the lower back radiating to the left flank. He reports the pain is getting more severe his torso flexion and rotation. He has been implanted sacral nerve stimulation device near this area so the trigger point injections are potentially risky for disruption of the stimulating leads. It sound to me that the patient is suffering from myofascial pain syndrome. To begin his treatment I offered him to start him on muscle relaxant tizanidine 2 mg t.i.d.. If this does will help him minimally without side effects I will increase the doses of the tizanidine. We agreed that he will give us a call in couple of weeks and if pain is continue to bother him schedule yet 1 more appointment. Prior: ? He received bilateral sacroiliac joint injections diagnostic with ropivacaine and he had 100% pain relief for the 1st 7 hours after the injection. He received diagnostic injection on 08/07/2022.? [facility] Medical History (Updated 02/12/24 @ 15:00 by Gifty Johnson APRN, GUN EXAMINER) History of COVID-19 Low back pain Peripheral neuropathy Arthritis Unintentional weight loss PTSD (post-traumatic stress disorder) Hematuria Left lower quadrant pain Urinary frequency Type 2 diabetes mellitus with unspecified complications Other obstructive and reflux uropathy Benign prostatic hyperplasia with lower urinary tract symptoms Urgency incontinence Hypercalcemia Surgical History (Updated 02/13/24 @ 10:14 by Gifty Johnson APRN, GUN EXAMINER) S/P fusion of sacroiliac joint History of esophagogastroduodenoscopy (EGD) Anal fissure History of surgery Hx of cystoscopy Hx of cardiac catheterization History of prostate surgery Hx of cystoscopy Hx of cystoscopy H/O colonoscopy Social History Are you a primary technical healthcare consultant to a significant other at home: No 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 Answers questions appropriately. Fully engaged in examination. Skin: warm, dry, intact without visible rashes or lesions. HEENT: Normocephalic. Conjuntivae clear without exudate. Sclera non-icteric. Hearing intact. Cardiac: External chest normal in appearance. Respiratory: No signs of trauma. No signs of respiratory distress. No cough, audible wheezing or stridor. Abdomen: without gross distension. MS: Well-healed surgical scar left lower back Tenderness over left PSIS Gaenslen positive on the left SI compression positive on the left TYRESE positive on the left Thigh thrust positive on the left Nontender over midline lumbar vertebrae and lumbar paraspinal muscles SLR negative bilaterally Neurological: Oriented to person, place, time and situation. Thought process intact. No gait abnormalities appreciated. Psychiatric: Appropriate mood and affect. Good judgment and insight. Results Reviewed Results Reviewed: EXAMINATION: XR PELVIS XR HIP, BILATERAL CLINICAL INFORMATION: Chronic pain syndrome. COMPARISON: Several fluoroscopic images of pelvis and SI joints are obtained 10/29/2022, 09/07/2022. TECHNIQUE: 2 views each hip. 2 views pelvis. FINDINGS: Left Hip: There is mild reduction left hip joint space but no bony erosive changes, fracture, dislocation or loose bodies. The soft tissues are normal. Incidental note is made of left sacral electrode for pain management. Right Hip: There is minimal loss of right hip joint space. No bony erosive changes, loose bodies or soft tissue swelling. AP Pelvis: There is normal symmetry of bilateral SI joints. Evidence of left SI joint fusion device IMPRESSION: 1. Mild early degenerative changes bilateral hip joints. No visible acute fracture, dislocation or subluxation seen. ? 2. There is evidence of left SI joint fusion device. Assessment & Plan Assessment & Plan (1) Left hip pain: Code(s): M25.552 - Pain in left hip Category: Medical (2) Pain of both sacroiliac joints: Code(s): M53.3 - Sacrococcygeal disorders, not elsewhere classified Category: Medical (3) Osteoarthritis of hips, bilateral: Code(s): M16.0 - Bilateral primary osteoarthritis of hip Category: Medical (4) Chronic pain syndrome: Code(s): G89.4 - Chronic pain syndrome Category: Medical (5) Myofascial pain syndrome: Code(s): M79.18 - Myalgia, other site Category: Medical (6) Myofascial pain syndrome of lumbar spine: Code(s): M79.18 - Myalgia, other site Category: Medical (7) Sacroiliac joint dysfunction of left side: Code(s): M53.3 - Sacrococcygeal disorders, not elsewhere classified Category: Medical (8) S/P fusion of sacroiliac joint: Code(s): Z98.1 - Arthrodesis status Category: Surgical Plan Presents back to the office today for follow-up, 1 month status post left lumbar trigger point injections Continue with Tizanidine 2 mg p.o. 3 times daily. Continue with Diclofenac topical, apply to most painful area twice daily as needed History, physical exam and provocative testing consistent with left sacroiliac joint pain. Patient is status post left SI joint fusion with sacral stimulator overlying the area. Will order CT scan of the SI joint to evaluate for disruption of the fusion. All questions and concerns were addressed during visit today. Patient will follow up after CT, sooner if needed. Orders: Orders CT bony pelvis Today M53.3 - Sacrococcygeal disorders, not elsewhere classified, Z98.1 - Arthrodesis status Coding Level of Care Code Est Pt Level 3 (84995) Diagnoses Left hip pain M25.552 Pain of both sacroiliac joints M53.3 Osteoarthritis of hips, bilateral M16.0 Chronic pain syndrome G89.4 Myofascial pain syndrome M79.18 Myofascial pain syndrome of lumbar spine M79.18 Sacroiliac joint dysfunction of left side M53.3 S/P fusion of sacroiliac joint Z98.1
[2024-02-12 14:29] VITALS: BP 105/64; PULSE 84; O2SAT 97; BMI 22.5
== END 2024-02-12 14:50 | disposition home or self-care (01) ==
PROVIDERS: PCP Internal Medicine; Visit Provider Registered Nurse Emergency
DX: M25.552 Pain in left hip (principal); M53.3 Sacrococcygeal disorders, not elsewhere classified; M16.0 Bilateral primary osteoarthritis of hip; G89.4 Chronic pain syndrome; M79.18 Myalgia, other site; Z98.1 Arthrodesis status
CPT/HCPCS: 99213

== ENCOUNTER → 2024-02-12 14:09 | Outpatient (BNVA) | payer OTHER, SELFPAY | PROVIDERS: PCP Internal Medicine; Visit Provider Registered Nurse Emergency | DX: M25.552 Pain in left hip (principal); M53.3 Sacrococcygeal disorders, not elsewhere classified; M16.0 Bilateral primary osteoarthritis of hip; M79.18 Myalgia, other site; G89.4 Chronic pain syndrome; Z98.1 Arthrodesis status | CPT/HCPCS: 99212 ==

== ENCOUNTER 2024-03-02 08:07 | Outpatient (REF) | payer OTHER, SELFPAY ==
[2024-03-02 08:42] LABS: Estimated Average Glucose 140 mg/dL; Hemoglobin A1c % 6.5 % (<6.0)
[2024-03-02 09:17] LABS: Alanine Aminotransferase 7 U/L (0-40); Albumin Level 4.2 g/dL (3.5-5.0); Alkaline Phosphatase 108 U/L (39-117); Anion Gap 10 (12-20); Aspartate Amino Transferase 10 U/L (5-37); Bilirubin Total 0.2 mg/dL (0.0-1.0); Blood Urea Nitrogen 21 mg/dL (9-16); Carbon Dioxide 30 mmol/L (22-29); Chloride 107 mmol/L (96-108); Estimated Glomerular Filt Rate > 60; Glucose Random 123 mg/dL (60-115); Potassium 4.3 mmol/L (3.3-5.1); Sodium 143 mmol/L (135-145); Total Protein 6.4 g/dL (6.5-8.0)
== END 2024-03-02 08:08 | disposition home or self-care (01) ==
LOC: HO.LAB 08:07
PROVIDERS: PCP Internal Medicine; Visit Provider Internal Medicine
DX: E11.9 Type 2 diabetes mellitus without complications (principal); E78.00 Pure hypercholesterolemia, unspecified; M47.22 Other spondylosis with radiculopathy, cervical region
CPT/HCPCS: 36415; 80053; 83036

== ENCOUNTER 2024-04-02 15:39 | Outpatient (REF) | payer OTHER, SELFPAY ==
--- NOTE | ~2024-04-02 | US_ITS ---
EXAMINATION: US RETROPERITONEAL COMPLETE (RENAL) CLINICAL INFORMATION: History of urinary calculi. COMPARISON: CT abdomen and pelvis dated 07/02/2023. TECHNIQUE: Real-time imaging of the kidneys and bladder. FINDINGS: RIGHT KIDNEY: 10.6 x 5.2 x 5.8 cm (SAG x AP x TRV). The kidney is normal in size, contour, and echogenicity. Renal cortical thickness is normal. No focal parenchymal lesions. At the lower pole, a 7 mm nonobstructing calculus is seen, with clinical artifact. There is a minimal medial perinephric fluid collection. No hydronephrosis. LEFT KIDNEY: 9.7 x 5.8 x 4.8 cm (SAG x AP x TRV). The kidney is normal in size, contour, and echogenicity. Renal cortical thickness is normal. No calculi or focal parenchymal lesions. No hydronephrosis. US/US renal BI IMPRESSION: 1. A 7 mm nonobstructing right renal calculus is seen. 2. There is a minimal medial right perinephric anechoic fluid collection. Electronically signed by: Steven Castro MD 04/22/2024 03:30 PM EDT
--- NOTE | ~2024-04-02 | CT_ITS ---
EXAMINATION: CT PELVIS WITHOUT CONTRAST CLINICAL INFORMATION: Left sacroiliac joint fusion. Pain. Evaluate fusion status. COMPARISON: Most recent CT abdomen/pelvis dated 07/02/2023. TECHNIQUE: Helical scanning was performed with submillimeter collimation through the pelvis. Sagittal and coronal multiplanar 2-D reconstructions were obtained. This CT examination was performed using dose optimization techniques as appropriate, variously including the following: *Automated exposure control *Adjustment of mA and/or kV according to patient size (this includes techniques or standardized protocols for targeted exams where dose is matched to indication/reason for exam; i.e. extremities or head) *Use of iterative reconstruction technique DLP: 389 mGy-cm FINDINGS: PELVIS: No pelvic soft tissue mass or fluid collection. The visualized pelvic bowel loops are unremarkable. No bowel wall thickening or frontal change. No pelvic bowel obstruction. The distal ureters are unremarkable. Nondistended urinary bladder. Pelvic phleboliths and prostate calcifications. No pelvic lymphadenopathy. No significant pelvic wall hernia. Pain pump redemonstrated within the left subcutaneous tissues with the lead in the left pelvis, unchanged. OSSEOUS STRUCTURES: Orthopedic hardware redemonstrated within the left sacroiliac joint. No hardware fracture or perihardware lucency to suggest loosening or infection. No significant osseous bridging across the left sacroiliac joint. There are small marginal osteophytes with mild subchondral sclerosis. No periarticular erosion. Mild right sacral iliac joint space narrowing with anterior bridging osteophytes. No periarticular erosion. No acute fracture or dislocation. No concerning lytic or blastic osseous lesion. No evidence of femoral head avascular necrosis. CT/CT bony pelvis IMPRESSION: 1. Orthopedic hardware redemonstrated within the left sacroiliac joint without evidence of hardware complication. No significant osseous bridging across the left sacroiliac joint. 2. Mild right sacroiliac osteoarthritis with anterior bridging osteophytes. Electronically signed by: Neeraj Holder MD 04/23/2024 10:41 AM EDT
== END 2024-04-02 15:40 | disposition home or self-care (01) ==
LOC: HO.US 15:39
PROVIDERS: PCP Internal Medicine; Visit Provider Urology
DX: Z98.1 Arthrodesis status (principal); M53.3 Sacrococcygeal disorders, not elsewhere classified; Z87.442 Personal history of urinary calculi
CPT/HCPCS: 72192; 76775

== ENCOUNTER 2024-05-08 14:59 | Outpatient (AMB) | payer OTHER, SELFPAY ==
[2024-05-08 15:12] VITALS: BP 110/75; PULSE 85; O2SAT 97; BMI 22.8
--- NOTE | 2024-05-08 15:12 | MHC.OFFVIS ---
Vital Signs 05/08/24 15:12 Height 6 ft Weight 168 lb BMI 22.8 BP 110/75 Blood Pressure Location Rt brachial Position Sitting Pulse 85 Pulse Source Pulse Oximeter Pulse Oximetry (%) 97 Oxygen Delivery Method Room Air Intake Visit Reasons: CT scan F/U Allergies linagliptin [From TRADJENTA] Allergy (Intermediate, Verified 05/08/24 15:13) RASH Wyukrpv-HVP-UqH Reductase Inhibitor [LYQJDLE-OOJ-XZY REDUCTASE INHIBITOR] Allergy (Intermediate, Verified 05/08/24 15:13) ITCHY,SKIN BREAKDOWN Medication List - Last Reconciled 05/08/24 by Theodora Fried blood sugar diagnostic As directed blood-glucose meter As directed bupropion HCl XL 300 mg PO QAM carbamazepine 200 mg PO BEDTIME cyanocobalamin (vitamin B-12) 1,000 mcg PO DAILY diazepam (Valium) 5 mg PO TID PRN diclofenac sodium 3% 1 appl topical BID docusate sodium 200 mg (2 x 100 mg) PO BEDTIME duloxetine 60 mg PO DAILY duloxetine 30 mg PO DAILY finasteride 5 mg PO DAILY hyoscyamine sulfate (Levsin/SL) 0.125 mg PO Q12H PRN 90 days lamotrigine 200 mg PO BID lancets (FreeStyle Lancets) As directed lisinopril 2.5 mg PO DAILY metformin 1,000 mg PO ONCE metformin ER 500 mg PO BID naproxen (Naprosyn) 500 mg PO BEDTIME ondansetron 4 mg PO Q8H PRN oxycodone 5 mg PO Q4H PRN oxycodone 5 mg PO Q6H PRN pantoprazole 20 mg PO QAM polyethylene glycol 3350 (Miralax) 17 grams PO DAILY prazosin 2 mg PO BEDTIME pregabalin 300 mg PO BID psyllium husk (Metamucil) 1 tbsp PO DAILY quetiapine 25 mg PO BEDTIME rosuvastatin 10 mg PO DAILY tizanidine 4 mg PO TID PRN HPI Comments Details: Linus presents back to the office today for follow-up, review recent CT scan. CT scan was reviewed, results as per below Continues with pain over left SI joint. Pain today rated as a 9/10 Has been taking tizanidine with minimal improvement. Pain is worse at night making it difficult to sleep. Prior: Patient presents back to the office today 1 month status post lumbar trigger point injections. He reports no improvement in the pain since the injections. Today patient complaining of pain over left PSIS, worse with sitting for long periods of time, standing and lying on the affected side. Prior: Linus presents back to the office today for follow-up. He was last seen here 03/14/2023 where he underwent injection for greater trochanteric bursitis. He reports since the injection he has no longer having pain to the lateral thigh. Today he is complaining of pain to the left lower back. Previously had left SI joint fusion, he also has sacral nerve stimulator, the device is near the area of his pain. He is adamant that the pain is not related to the device. Pain is worse with moving, bending, twisting and palpation. He does not have any pain to the groin. He does report some radiation of the pain to his left thigh posteriorly Currently he is using THC for his pain Prior: Linus is a pleasant 52 year old male who presents back to the office for follow up left hip pain. Patient reports he was seen in the office last month for similar pain and was prescribed Tizanidine three times daily. States he tried but did not receive any relief with the muscle relaxer, he even tried taking 2 and 3 tabs at once with no help. He also went to the dispensary where he bought CBD cream but did not note any benefit with this either. Prior: Linus is very pleasant 52 years old gentleman who is in my office again with new complaint. He reports that pain with movement related to sacroiliac joint on the left with was addressed with left SI joint fusion performed on 09/07/2022 is not bothering him anymore. However he reports that 2 weeks ago experience pain in the left side of the lower back radiating to the left flank. He reports the pain is getting more severe his torso flexion and rotation. He has been implanted sacral nerve stimulation device near this area so the trigger point injections are potentially risky for disruption of the stimulating leads. It sound to me that the patient is suffering from myofascial pain syndrome. To begin his treatment I offered him to start him on muscle relaxant tizanidine 2 mg t.i.d.. If this does will help him minimally without side effects I will increase the doses of the tizanidine. We agreed that he will give us a call in couple of weeks and if pain is continue to bother him schedule yet 1 more appointment. Prior: ? He received bilateral sacroiliac joint injections diagnostic with ropivacaine and he had 100% pain relief for the 1st 7 hours after the injection. He received diagnostic injection on 08/07/2022.? [facility] Medical History (Updated 02/12/24 @ 15:00 by Gifty Johnson APRN, BUNKER WORKER) History of COVID-19 Low back pain Peripheral neuropathy Arthritis Unintentional weight loss PTSD (post-traumatic stress disorder) Hematuria Left lower quadrant pain Urinary frequency Type 2 diabetes mellitus with unspecified complications Other obstructive and reflux uropathy Benign prostatic hyperplasia with lower urinary tract symptoms Urgency incontinence Hypercalcemia Surgical History (Updated 02/13/24 @ 10:14 by Gifty Johnson APRN, BUNKER WORKER) S/P fusion of sacroiliac joint History of esophagogastroduodenoscopy (EGD) Anal fissure History of surgery Hx of cystoscopy Hx of cardiac catheterization History of prostate surgery Hx of cystoscopy Hx of cystoscopy H/O colonoscopy Social History Are you a primary student career development specialist to a significant other at home: No 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 Answers questions appropriately. Fully engaged in examination. Skin: warm, dry, intact without visible rashes or lesions. HEENT: Normocephalic. Conjuntivae clear without exudate. Sclera non-icteric. Hearing intact. Cardiac: External chest normal in appearance. Respiratory: No signs of trauma. No signs of respiratory distress. No cough, audible wheezing or stridor. Abdomen: without gross distension. MS: Well-healed surgical scar left lower back Tenderness over left PSIS Gaenslen positive on the left SI compression positive on the left TYRESE positive on the left Thigh thrust positive on the left Nontender over midline lumbar vertebrae and lumbar paraspinal muscles SLR negative bilaterally Neurological: Oriented to person, place, time and situation. Thought process intact. No gait abnormalities appreciated. Psychiatric: Appropriate mood and affect. Good judgment and insight. Results Reviewed Results Reviewed: 04/02/2024 CT/CT bony pelvis FINDINGS: PELVIS: No pelvic soft tissue mass or fluid collection. The visualized pelvic bowel loops are unremarkable. No bowel wall thickening or frontal change. No pelvic bowel obstruction. The distal ureters are unremarkable. Nondistended urinary bladder. Pelvic phleboliths and prostate calcifications. No pelvic lymphadenopathy. No significant pelvic wall hernia. Pain pump redemonstrated within the left subcutaneous tissues with the lead in the left pelvis, unchanged. OSSEOUS STRUCTURES: Orthopedic hardware redemonstrated within the left sacroiliac joint. No hardware fracture or perihardware lucency to suggest loosening or infection. No significant osseous bridging across the left sacroiliac joint. There are small marginal osteophytes with mild subchondral sclerosis. No periarticular erosion. Mild right sacral iliac joint space narrowing with anterior bridging osteophytes. No periarticular erosion. No acute fracture or dislocation. No concerning lytic or blastic osseous lesion. No evidence of femoral head avascular necrosis. IMPRESSION: 1. Orthopedic hardware redemonstrated within the left sacroiliac joint without evidence of hardware complication. No significant osseous bridging across the left sacroiliac joint. 2. Mild right sacroiliac osteoarthritis with anterior bridging osteophytes. EXAMINATION: XR PELVIS XR HIP, BILATERAL CLINICAL INFORMATION: Chronic pain syndrome. COMPARISON: Several fluoroscopic images of pelvis and SI joints are obtained 10/29/2022, 09/07/2022. TECHNIQUE: 2 views each hip. 2 views pelvis. FINDINGS: Left Hip: There is mild reduction left hip joint space but no bony erosive changes, fracture, dislocation or loose bodies. The soft tissues are normal. Incidental note is made of left sacral electrode for pain management. Right Hip: There is minimal loss of right hip joint space. No bony erosive changes, loose bodies or soft tissue swelling. AP Pelvis: There is normal symmetry of bilateral SI joints. Evidence of left SI joint fusion device IMPRESSION: 1. Mild early degenerative changes bilateral hip joints. No visible acute fracture, dislocation or subluxation seen. ? 2. There is evidence of left SI joint fusion device. Assessment & Plan Assessment & Plan (1) Left hip pain: Code(s): M25.552 - Pain in left hip Category: Medical (2) Pain of both sacroiliac joints: Code(s): M53.3 - Sacrococcygeal disorders, not elsewhere classified Category: Medical (3) Osteoarthritis of hips, bilateral: Code(s): M16.0 - Bilateral primary osteoarthritis of hip Category: Medical (4) Chronic pain syndrome: Code(s): G89.4 - Chronic pain syndrome Category: Medical (5) Myofascial pain syndrome: Code(s): M79.18 - Myalgia, other site Category: Medical (6) Myofascial pain syndrome of lumbar spine: Code(s): M79.18 - Myalgia, other site Category: Medical (7) Sacroiliac joint dysfunction of left side: Code(s): M53.3 - Sacrococcygeal disorders, not elsewhere classified Category: Medical (8) S/P fusion of sacroiliac joint: Code(s): Z98.1 - Arthrodesis status Category: Surgical Plan Presents back to the office today for follow-up left sacroiliac joint dysfunction CT scan was reviewed, results as per above Discontinue tizanidine, new prescription for cyclobenzaprine 5 mg p.o. t.i.d. as needed. Patient advised on cautions for use Will schedule for fluoroscopy guided diagnostic left medial corneal nerve block with local anesthetic. If patient reports positive results will plan for sprint PNS. All questions and concerns were addressed during visit today. Patient will follow up after nerve block, sooner if needed. Medications: New cyclobenzaprine Discontinue use of tizanidine. No driving while taking this medication. 5 mg PO TID PRN 90 tabs 1RF muscle spasm Discontinued tizanidine Discontinued Reason: Doctor's Order 4 mg PO TID PRN 90 tabs 0RF muscle spasticity Coding Level of Care Code Est Pt Level 3 (19258) Complex EM visit Add On G2211 Diagnoses Left hip pain M25.552 Pain of both sacroiliac joints M53.3 Osteoarthritis of hips, bilateral M16.0 Chronic pain syndrome G89.4 Myofascial pain syndrome M79.18 Myofascial pain syndrome of lumbar spine M79.18 Sacroiliac joint dysfunction of left side M53.3 S/P fusion of sacroiliac joint Z98.1
== END 2024-05-08 15:31 | disposition home or self-care (01) ==
PROVIDERS: PCP Internal Medicine; Visit Provider Registered Nurse Emergency
DX: M25.552 Pain in left hip (principal); M53.3 Sacrococcygeal disorders, not elsewhere classified; M16.0 Bilateral primary osteoarthritis of hip; G89.4 Chronic pain syndrome; M79.18 Myalgia, other site; Z98.1 Arthrodesis status
CPT/HCPCS: 99213; G2211

== ENCOUNTER → 2024-05-08 14:59 | Outpatient (BNVA) | payer OTHER, SELFPAY | PROVIDERS: PCP Internal Medicine; Visit Provider Registered Nurse Emergency | DX: M25.552 Pain in left hip (principal); M53.3 Sacrococcygeal disorders, not elsewhere classified; M16.0 Bilateral primary osteoarthritis of hip; G89.4 Chronic pain syndrome; M79.18 Myalgia, other site; Z98.1 Arthrodesis status | CPT/HCPCS: 99212 ==

== ENCOUNTER 2024-06-17 14:09 | Outpatient (AMB) | payer OTHER, SELFPAY ==
--- NOTE | 2024-06-17 14:20 | MHC.OFFVIS ---
Intake Visit Reasons: 6m/US(set) Intake Note: Patient presents today for follow up on: chronic uti, OAB, prostatitis Urology Med: Finasteride Antibiotic Allergy: none Blood Thinner: none PVR: 58ml's Customer Business Manager Required: No Accompanied by: Self / Same As Patient Allergies linagliptin [From TRADJENTA] Allergy (Intermediate, Verified 06/17/24 14:56) RASH Qshsxvn-AWF-HoK Reductase Inhibitor [MVUMARP-VEN-TMC REDUCTASE INHIBITOR] Allergy (Intermediate, Verified 06/17/24 14:56) ITCHY,SKIN BREAKDOWN Medication List - Last Reconciled 06/17/24 by THIERRY Yee blood sugar diagnostic As directed blood-glucose meter As directed bupropion HCl XL 300 mg PO QAM carbamazepine 200 mg PO BEDTIME cyanocobalamin (vitamin B-12) 1,000 mcg PO DAILY cyclobenzaprine 5 mg PO TID PRN diazepam (Valium) 5 mg PO TID PRN diclofenac sodium 3% 1 appl topical BID docusate sodium 200 mg (2 x 100 mg) PO BEDTIME duloxetine 60 mg PO DAILY duloxetine 30 mg PO DAILY finasteride 5 mg PO DAILY lamotrigine 200 mg PO BID lancets (FreeStyle Lancets) As directed lisinopril 2.5 mg PO DAILY metformin ER 500 mg PO ONCE pregabalin 300 mg PO BID psyllium husk (Metamucil) 1 tbsp PO DAILY quetiapine 25 mg PO BEDTIME rosuvastatin 10 mg PO DAILY HPI Comments Details: Linus is a 54-year-old male patient of Dr. Bates. He has a past medical history of low back pain, peripheral neuropathy, arthritis, PTSD, type 2 diabetes, hypercalcemia, hematuria, and urinary frequency. He presents to the office today for follow-up of his ongoing lower urinary tract symptoms, nocturia, prostatitis, interstitial cystitis, and nephrolithiasis. Recent renal imaging results reviewed with the patient today bilateral kidneys with no hydronephrosis or lesions. Right lower pole 7 mm nonobstructing calculus is seen. He reports feelings InterStim has been extremely helpful with lower urinary tract symptoms he had been experiencing. He discusses doing well on program 03/02. He does report noting lower urinary tract symptoms with constipation. We discussed correlation of constipation and lower urinary tract symptoms. He has a previous history of laser prostatectomy in 2019. He has failed oral medications including oxybutynin, tolterodine, and Myrbetriq. He has also failed bladder Botox. He reports noting intermittent episodes of left-sided flank pain. Previous PSA 12/16 0.6. When asked he denies urinary urgency, urinary frequency, incontinence, nocturia, dysuria, foul smelling urine, changes to urinary stream, flank pain, fever, and or chills. He is happy with her current voiding parameters. He discusses his main concern is his issues with constipation. We discussed obtaining KUB for further assessment evaluation however importance of managing constipation prior to KUB to assess nephrolithiasis. Previous office note: Interstitial cystitis Biopsy proven November 2021 - Inflamed and congested mucosa 11/14 hydrodistention adverse event with complicated UTI Microgen 12/15 Enterococcus linezolid sensitive - 1 week trial Prostatitis Recurrent Occasional flares Last episode started July 2021 DNA analysis sensitivity to clindamycin and linezolid - Staphylococcus and Corynebacterium Lower urinary tract symptoms Urgency and frequency consistent with diabetic cystopathy - failed from medications oxybuytinin and tolterodine Underwent laser prostatectomy in 2018 Diabetic cystopathy with urgency - Had recurrent hematuria 12/14 Procedures - 11/14 Cystoscopy with fulguration neovascularity - 02/14 cystoscopy with bladder Botox Imaging 10/16 CT scan TURP defect, no stones Prior medications - oxybutynin 10 mg poor response, myrbetriq PFSH Medical History History of COVID-19 Low back pain Peripheral neuropathy Arthritis Unintentional weight loss PTSD (post-traumatic stress disorder) Hematuria Left lower quadrant pain Urinary frequency Type 2 diabetes mellitus with unspecified complications Other obstructive and reflux uropathy Benign prostatic hyperplasia with lower urinary tract symptoms Urgency incontinence Hypercalcemia Surgical History S/P fusion of sacroiliac joint History of esophagogastroduodenoscopy (EGD) Anal fissure History of surgery Hx of cystoscopy Hx of cardiac catheterization History of prostate surgery Hx of cystoscopy Hx of cystoscopy H/O colonoscopy Social History Are you a primary reproductive healthcare assistant to a significant other at home: No Do you 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 have 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) Alcohol intake: never Patient Tobacco Use Status: Former Tobacco user Tobacco use type: Cigarette Second Hand Smoke Exposure: No Substance Use Type: Marijuana service: Yes Review of Systems Const Reports as per [facility] Eyes Reports no additional complaints Card Reports as per [facility] Reports as per [facility] Musc Reports as per [facility] Neuro Reports as per [facility] Psych Reports as per [facility] Endo Reports as per HPI Physical Exam Const General: cooperative, healthy appearing, comfortable, no acute distress, well developed, alert and awake Orientation/consciousness: patient oriented x3 Limitations: no limitations HEENT Head: Yes normal to inspection, Yes normocephalic and Yes atraumatic Ears: hearing grossly normal bilaterally Eyes General: appearance normal, both eyes and all related structures Neck Neck: Yes normal visual inspection and Yes trachea midline Chest Chest palpation & inspection: normal inspection of the chest Resp Effort & Inspection: normal respiratory effort and able to speak in complete sentences Cardio Rate: regular rate GI Inspection: Yes normal to inspection General: Yes no CVA tenderness Back/Spine/Pelvis Back: no CVA tenderness Skin General skin exam: no rashes or lesions noted Neuro General: patient oriented x3 Extrem General: Yes normal to inspection Psych Appearance: grossly normal and well kempt Mental Status: mental status grossly normal Speech and movement: Normal speech and movement present and Clear speech present Affect: normal affect Attitude: cooperative Thought process: Normal thought process present Thought content: Normal thought content present Insight: Fair insight present (Psych) Judgement: Fair judgement present (Psych) Office Procedures Post Void Residual Post Residual Void Post Void Residual (PVR): 58 [id number] Void Residual by ultrasound Results AMB Urinalysis, Automated UA Leukoctes 15 Jt/uL Last Edit by [email or web address] Lei on 06/17/24 14:49 UA Nitrite Negative Last Edit by Smarty Ring Do on 06/17/24 14:49 UA Urobilinogen 0.2 mg/dL Last Edit by [email or web address] Lei on 06/17/24 14:49 UA Protein 0 mg/dL Last Edit by [email or web address] Lei on 06/17/24 14:49 UA pH 6.0 Last Edit by [email or web address] Lei on 06/17/24 14:49 UA Blood 0 Mikie/uL Last Edit by [email or web address] Lei on 06/17/24 14:49 UA Specific [place] 1.015 Last Edit by Ryanjoséverito Connorsrizwana on 06/17/24 14:49 UA Ketone Last Edit by Ryanrema Doryrizwana on 06/17/24 14:49 UA Bilirubin 0 mg/dL Last Edit by Deborah Doryrizwana on 06/17/24 14:49 UA Glucose 0 mg/dL Last Edit by Deborah Doryrizwana on 06/17/24 14:49 Results Reviewed Results Reviewed: Laboratory Last Values Urine pH (Auto) 6.0 06/17/24 14:47 Specific [place] (Auto) 1.015 06/17/24 14:47 Urine Protein (Auto) 0 mg/dL 06/17/24 14:47 Glucose (UA)(Auto) 0 mg/dL 06/17/24 14:47 Urine Blood (Auto) 0 Mikie/uL 06/17/24 14:47 Urine Nitrite (Auto) Negative 06/17/24 14:47 Urine Bilirubin (Auto) 0 mg/dL 06/17/24 14:47 Urine Urobilinogen (Auto) 0.2 mg/dL 06/17/24 14:47 Leukocyte Esterase (Auto) 15 Jt/uL 06/17/24 14:47 Date of Service: 04/02/24 EXAMINATION: US RETROPERITONEAL COMPLETE (RENAL) FINDINGS: RIGHT KIDNEY: 10.6 x 5.2 x 5.8 cm (SAG x AP x TRV). The kidney is normal in size, contour, and echogenicity. Renal cortical thickness is normal. No focal parenchymal lesions. At the lower pole, a 7 mm nonobstructing calculus is seen, with clinical artifact. There is a minimal medial perinephric fluid collection. No hydronephrosis. LEFT KIDNEY: 9.7 x 5.8 x 4.8 cm (SAG x AP x TRV). The kidney is normal in size, contour, and echogenicity. Renal cortical thickness is normal. No calculi or focal parenchymal lesions. No hydronephrosis. IMPRESSION: 1. A 7 mm nonobstructing right renal calculus is seen. 2. There is a minimal medial right perinephric anechoic fluid collection. Assessment & Plan Assessment & Plan (1) Kidney stone on left side: Code(s): N20.0 - Calculus of kidney Category: Medical (2) Interstitial cystitis (chronic) without hematuria: Code(s): N30.10 - Interstitial cystitis (chronic) without hematuria Category: Medical (3) Chronic UTI (urinary tract infection): Code(s): N39.0 - Urinary tract infection, site not specified Category: Medical (4) Overactive bladder: Code(s): N32.81 - Overactive bladder Category: Medical (5) Prostatitis: Code(s): N41.9 - Inflammatory disease of prostate, unspecified Category: Medical (6) BPH w urinary obs/LUTS: Code(s): N40.1 - Benign prostatic hyperplasia with lower urinary tract symptoms; N13.8 - Other obstructive and reflux uropathy Category: Medical (7) Flank pain: Code(s): R10.9 - Unspecified abdominal pain Category: Medical Plan In office urinalysis results reviewed with the patient today; as noted above. PVR 58ml's. Recent renal imaging results reviewed with the patient today. Patient reports be happy with current voiding parameters on setting 7/8 with InterStim. Discussed correlation of constipation with lower urinary tract symptoms. Discussed obtaining KUB for further assessment evaluation as patient reporting left-sided flank pain further assess nephrolithiasis. Discussed, educated, and stressed the importance of adequate hydration relation to nephrolithiasis as well as overall the and well-being. Discussed, educated, and stressed the importance of managing diabetes for improvement in lower urinary tract symptoms as well as overall health and well-being. Follow-up in 1-3 months with imaging to be completed prior; or sooner with any issues, concerns, and or questions. Orders: Orders AMB Post Void Residual by ultrasound Today N13.8 - Other obstructive and reflux uropathy, N40.1 - Benign prostatic hyperplasia with lower urinary tract symptoms XR KUB Today N20.0 - Calculus of kidney AMB Urinalysis Automated Today Z13.9 - Encounter for screening, unspecified Patient Instructions: The patient had an opportunity to ask questions regarding the treatment plan. All questions were answered. Physical exam, labs, and imaging were discussed and reviewed in detail. As well as risks, benefits, and discussion of treatment choices. No major barriers to understanding were identified. The patient expressed understanding and agreement with the above treatment plan. The patient was made aware they should contact our office by phone for worsening of their current condition, the appearance of new symptoms, or with any questions or concerns. Compliance is encouraged with any medications and follow up testing that is ordered. It is a privilege to be allowed the opportunity to participate in? your urological care.? Again, if you have any questions or concerns If you have any questions or concerns please do not hesitate to contact me. The office is [phone]. This note is constructed using voice recognition software. While every effort has been made to ensure accuracy popcorn attendant errors may have been included. Yours sincerely, EUNICE Yee Coding Level of Care Code Est Pt Level 3 (51795) Complex EM visit Add On G2211 Diagnoses Kidney stone on left side N20.0 Interstitial cystitis (chronic) without hematuria N30.10 Chronic UTI (urinary tract infection) N39.0 Overactive bladder N32.81 Prostatitis N41.9 BPH w urinary obs/LUTS N40.1; N13.8 Flank pain R10.9 CPT Codes Post Residual Void - PVR CPT Code: 91786-[id number] Void Residual by ultrasound ([id number])
== END 2024-06-17 14:58 | disposition home or self-care (01) ==
PROVIDERS: PCP Internal Medicine; Visit Provider Nurse Practitioner Family
DX: N20.0 Calculus of kidney (principal); N30.10 Interstitial cystitis (chronic) without hematuria; N39.0 Urinary tract infection, site not specified; N32.81 Overactive bladder; N41.9 Inflammatory disease of prostate, unspecified; N40.1 Benign prostatic hyperplasia with lower urinary tract symptoms; N13.8 Other obstructive and reflux uropathy; R10.9 Unspecified abdominal pain; Z13.9 Encounter for screening, unspecified
CPT/HCPCS: 99213; G2211

== ENCOUNTER → 2024-06-17 14:09 | Outpatient (BNVA) | payer OTHER, SELFPAY | PROVIDERS: PCP Internal Medicine; Visit Provider Nurse Practitioner Family | DX: N20.0 Calculus of kidney (principal); N30.10 Interstitial cystitis (chronic) without hematuria; N39.0 Urinary tract infection, site not specified; N32.81 Overactive bladder; N41.9 Inflammatory disease of prostate, unspecified; N40.1 Benign prostatic hyperplasia with lower urinary tract symptoms; N13.8 Other obstructive and reflux uropathy; R10.9 Unspecified abdominal pain | CPT/HCPCS: 51798; 81003; 99212 ==

== ENCOUNTER 2024-07-04 10:34 | Outpatient (REF) | payer OTHER, SELFPAY ==
[2024-07-04 11:19] LABS: Estimated Average Glucose 143 mg/dL; Hemoglobin A1C 174.3555 umol/L; Hemoglobin A1c % 6.6 % (<6.0); Total Hemoglobin (HGBA1C) 3552.0266 umol/L
[2024-07-04 11:37] LABS: Alanine Aminotransferase 16 U/L (0-40); Albumin Level 4.4 g/dL (3.5-5.0); Alkaline Phosphatase 106 U/L (39-117); Anion Gap 12 (12-20); Aspartate Amino Transferase 15 U/L (5-37); Bilirubin Total 0.3 mg/dL (0.0-1.0); Blood Urea Nitrogen 9 mg/dL (9-16); Calcium 9.6 mg/dL (8.4-10.2); Carbon Dioxide 29 mmol/L (22-29); Chloride 105 mmol/L (96-108); Estimated Glomerular Filt Rate > 60; Glucose Random 155 mg/dL (60-115); Potassium 4.9 mmol/L (3.3-5.1); Sodium 141 mmol/L (135-145); Total Protein 6.7 g/dL (6.5-8.0)
== END 2024-07-04 10:35 | disposition home or self-care (01) ==
LOC: HO.LAB 10:34
PROVIDERS: PCP Internal Medicine; Visit Provider Internal Medicine
DX: E11.9 Type 2 diabetes mellitus without complications (principal); E78.00 Pure hypercholesterolemia, unspecified; M48.02 Spinal stenosis, cervical region; Z68.23 Body mass index [BMI] 23.0-23.9, adult
CPT/HCPCS: 36415; 80053; 83036

== ENCOUNTER 2024-07-07 06:23 | Outpatient (REF) | payer OTHER, SELFPAY ==
--- NOTE | ~2024-07-07 | FL_ITS ---
EXAMINATION: FLUOROSCOPY GUIDANCE FOR NEEDLE PLACEMENT CLINICAL INFORMATION: M79.18 - Myalgia, other site COMPARISON: None available. TECHNIQUE: Fluoroscopy during intervention FINDINGS: Multiple probes in the region of the left sacrum FLUOROSCOPY TIME: 0.3 minutes DOSE AREA PRODUCT: 0.0437 mGy-m2 (milligray-meter squared) FL/FL guidance in treatment room IMPRESSION: Fluoroscopy during procedure. Please see operative report for additional information. Electronically signed by: Guera Monroe MD 08/03/2024 04:50 PM KAYLENE [facility]
== END 2024-07-07 06:24 | disposition home or self-care (01) ==
LOC: CF 06:23
PROVIDERS: Visit Provider Anesthesiology
DX: M79.18 Myalgia, other site (principal); M53.3 Sacrococcygeal disorders, not elsewhere classified; Z98.1 Arthrodesis status
CPT/HCPCS: 64450; J2003; J2795; Q9967

== ENCOUNTER 2024-07-07 14:03 | Outpatient (AMB) | payer OTHER, SELFPAY ==
--- NOTE | 2024-07-07 14:04 | A.OFFVIS_ITS ---
Vital Signs 07/07/24 14:43 07/07/24 14:46 Height 6 ft 6 ft Weight 168 lb 168 lb BMI 22.8 22.8 BP 112/66 106/74 Blood Pressure Location Lt brachial Lt brachial Position Sitting Sitting Respiration 16 16 Pulse 82 98 Pulse Source Pulse Oximeter Pulse Oximeter Pulse Oximetry (%) 99 98 Oxygen Delivery Method Room Air Room Air Comment pre-op post-op Intake Visit Reasons: LEFT DIAGNOSTIC MEDIAL CLUNEAL NERVE BLOCK Allergies linagliptin [From TRADJENTA] Allergy (Intermediate, Verified 07/07/24 14:47) RASH Etwsjot-CWZ-XzO Reductase Inhibitor [XAGIXMW-MCQ-AHF REDUCTASE INHIBITOR] Allergy (Intermediate, Verified 07/07/24 14:47) ITCHY,SKIN BREAKDOWN PFSH Medical History History of COVID-19 Low back pain Peripheral neuropathy Arthritis Unintentional weight loss PTSD (post-traumatic stress disorder) Hematuria Left lower quadrant pain Urinary frequency Type 2 diabetes mellitus with unspecified complications Other obstructive and reflux uropathy Benign prostatic hyperplasia with lower urinary tract symptoms Urgency incontinence Hypercalcemia Surgical History S/P fusion of sacroiliac joint History of esophagogastroduodenoscopy (EGD) Anal fissure History of surgery Hx of cystoscopy Hx of cardiac catheterization History of prostate surgery Hx of cystoscopy Hx of cystoscopy H/O colonoscopy Social History Are you a primary careers counsellor to a significant other at home: No Do you 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 have 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) Alcohol intake: never Patient Tobacco Use Status: Former Tobacco user Tobacco use type: Cigarette Second Hand Smoke Exposure: No Substance Use Type: Marijuana service: Yes Physical Exam Vital Signs: Last Vital Signs Pulse 98 07/07/24 14:46 Resp 16 07/07/24 14:46 BP 106/74 07/07/24 14:46 Pulse Ox 98 07/07/24 14:46 Oxygen Delivery Method Room Air 07/07/24 14:46 BMI result Body Mass Index 22.8 Assessment & Plan Assessment & Plan (1) S/P fusion of sacroiliac joint: Code(s): Z98.1 - Arthrodesis status Category: Medical (2) Sacroiliac joint dysfunction of left side: Code(s): M53.3 - Sacrococcygeal disorders, not elsewhere classified Category: Medical Plan Left diagnostic sacroiliac joint innervation injection Informed consent was explained to the patient. All questions were explained and answered.? The patient was taken inside of the operating room where he was positioned prone on operating table..? Time-out was performed delineating patient's name and date of , correct site, side, the nature of the procedure, patient's allergy, preoperative antibiotic if needed, need for VT prophylaxis..? All operating room staff was participating in OR time-out procedure. Lower back and upper buttocks area of the patient was prepped with ChloraPrep and draped with sterile towels.? Sterilely draped C-arm was brought over the operating field and picture of left sacroiliac joint was delineated on the screen.? The sacral stimulator line was noted crossing the silhouette of the sacroiliac joint. Because of the position of the sacral stimulator very close to the foramina on the left the decision was made to perform sacroiliac joint innervation injection. The projection of the sacral bone on the screen was chosen as initial target of the injection. The skin is knee in projection of the sacral portion of the sacroiliac joint was injected with lidocaine/ropivacaine mixture one-to-one. After that 6 tree and a half 22 gauge needles were driven to the point of interest on the sacral portion of the sacroiliac joint. When inch needle contacted the bone injection of small amount of ropivacaine 0.5% was performed. The care was taken to avoid the sacral innervation wire. Upon completion of the procedure the needles were removed sterile Band-Aid was applied. Patient tolerated procedure well. Orders: Orders FL guidance in treatment room 07/07/24 M53.3 - Sacrococcygeal disorders, not elsewhere classified Coding Level of Care Code Procedure Only Diagnoses S/P fusion of sacroiliac joint Z98.1 Sacroiliac joint dysfunction of left side M53.3
[2024-07-07 14:43] VITALS: BP 112/66; PULSE 82; RESP 16; O2SAT 99; BMI 22.8
[2024-07-07 14:46] VITALS: BP 106/74; PULSE 98; RESP 16; O2SAT 98; BMI 22.8
== END 2024-07-07 14:36 | disposition home or self-care (01) ==
LOC: HO.PMCPRC 14:03
PROVIDERS: PCP Internal Medicine; Visit Provider Anesthesiology
DX: Z98.1 Arthrodesis status (principal); M53.3 Sacrococcygeal disorders, not elsewhere classified
CPT/HCPCS: 64450; 77002

== ENCOUNTER 2024-07-10 14:25 | Outpatient (AMB) | payer OTHER, SELFPAY ==
[2024-07-10 14:45] VITALS: BP 111/71; PULSE 89; O2SAT 99; BMI 22.8
--- NOTE | 2024-07-10 14:45 | A.OFFVIS_ITS ---
Vital Signs 07/10/24 14:45 Height 6 ft Weight 168 lb BMI 22.8 BP 111/71 Blood Pressure Location Lt brachial Position Sitting Pulse 89 Pulse Source Pulse Oximeter Pulse Oximetry (%) 99 Oxygen Delivery Method Room Air Intake Visit Reasons: LEFT DIAGNOSTIC MEDIAL CLUNEAL NERVE BLOCK Allergies linagliptin [From TRADJENTA] Allergy (Intermediate, Verified 07/10/24 14:46) RASH Wlutnqu-RUY-YuH Reductase Inhibitor [ZWWURZQ-AEC-RSJ REDUCTASE INHIBITOR] Allergy (Intermediate, Verified 07/10/24 14:46) ITCHY,SKIN BREAKDOWN Medication List - Last Reconciled 07/10/24 by Theodora Fried blood sugar diagnostic As directed blood-glucose meter As directed bupropion HCl XL 300 mg PO QAM carbamazepine 200 mg PO BEDTIME cyanocobalamin (vitamin B-12) 1,000 mcg PO DAILY cyclobenzaprine 5 mg PO TID PRN diazepam (Valium) 5 mg PO TID PRN diclofenac sodium 3% 1 appl topical BID docusate sodium 200 mg (2 x 100 mg) PO BEDTIME duloxetine 60 mg PO DAILY duloxetine 30 mg PO DAILY finasteride 5 mg PO DAILY lamotrigine 200 mg PO BID lancets (FreeStyle Lancets) As directed lisinopril 2.5 mg PO DAILY metformin ER 500 mg PO ONCE pregabalin 300 mg PO BID psyllium husk (Metamucil) 1 tbsp PO DAILY quetiapine 25 mg PO BEDTIME rosuvastatin 10 mg PO DAILY tamsulosin 0.4 mg PO BEDTIME [facility] Medical History History of COVID-19 Low back pain Peripheral neuropathy Arthritis Unintentional weight loss PTSD (post-traumatic stress disorder) Hematuria Left lower quadrant pain Urinary frequency Type 2 diabetes mellitus with unspecified complications Other obstructive and reflux uropathy Benign prostatic hyperplasia with lower urinary tract symptoms Urgency incontinence Hypercalcemia Surgical History S/P fusion of sacroiliac joint History of esophagogastroduodenoscopy (EGD) Anal fissure History of surgery Hx of cystoscopy Hx of cardiac catheterization History of prostate surgery Hx of cystoscopy Hx of cystoscopy H/O colonoscopy Social History Are you a primary health care facilities inspector to a significant other at home: No Do you 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 have 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) Alcohol intake: never Patient Tobacco Use Status: Former Tobacco user Tobacco use type: Cigarette Second Hand Smoke Exposure: No Substance Use Type: Marijuana service: Yes Physical Exam Vital Signs: Last Vital Signs Pulse 89 07/10/24 14:45 BP 111/71 07/10/24 14:45 Pulse Ox 99 07/10/24 14:45 Oxygen Delivery Method Room Air 07/10/24 14:45 BMI result Body Mass Index 22.8 Assessment & Plan Assessment & Plan (1) Left hip pain: Code(s): M25.552 - Pain in left hip Category: Medical (2) Pain of both sacroiliac joints: Code(s): M53.3 - Sacrococcygeal disorders, not elsewhere classified Category: Medical (3) Osteoarthritis of hips, bilateral: Code(s): M16.0 - Bilateral primary osteoarthritis of hip Category: Medical (4) Chronic pain syndrome: Code(s): G89.4 - Chronic pain syndrome Category: Medical (5) Myofascial pain syndrome: Code(s): M79.18 - Myalgia, other site Category: Medical (6) Myofascial pain syndrome of lumbar spine: Code(s): M79.18 - Myalgia, other site Category: Medical (7) Sacroiliac joint dysfunction of left side: Code(s): M53.3 - Sacrococcygeal disorders, not elsewhere classified Category: Medical (8) S/P fusion of sacroiliac joint: Code(s): Z98.1 - Arthrodesis status Category: Surgical Plan Presents back to the office today for follow-up 3 days status post Left diagnostic sacroiliac joint innervation injection Patient reports no improvement after the injections. Continue with cyclobenzaprine as prescribed Julio Cesar short prescription for oxycodone 5 mg p.o. twice daily as needed 14. Tablets. Patient has advised on cautions for use. He is also aware that this is a 1 time prescription, use sparingly as he will not get any refills. Patient verbalizes understanding Discussed options for treatment including intrathecal drug delivery device. Informational pamphlets provided. Patient is aware that this would require mental health clearance before we could schedule. He has psychiatrist and will request a letter from them. Will schedule for fluoroscopy guided intrathecal drug delivery trial with bupivacaine under local anesthetic. All questions and concerns were addressed during visit today. Patient will follow up after injection, sooner if needed. Medications: New oxycodone Partial Fill upon patient request. 5 mg PO BID PRN 14 tabs 0RF pain Refilled cyclobenzaprine Discontinue use of tizanidine. No driving while taking this medication. 5 mg PO TID PRN 90 tabs 1RF muscle spasm Coding Level of Care Code Est Pt Level 3 (11320) Complex EM visit Add On G2211 Diagnoses Left hip pain M25.552 Pain of both sacroiliac joints M53.3 Osteoarthritis of hips, bilateral M16.0 Chronic pain syndrome G89.4 Myofascial pain syndrome M79.18 Myofascial pain syndrome of lumbar spine M79.18 Sacroiliac joint dysfunction of left side M53.3 S/P fusion of sacroiliac joint Z98.1
== END 2024-07-10 15:12 | disposition home or self-care (01) ==
PROVIDERS: PCP Internal Medicine; Visit Provider Registered Nurse Emergency
DX: M25.552 Pain in left hip (principal); M53.3 Sacrococcygeal disorders, not elsewhere classified; M16.0 Bilateral primary osteoarthritis of hip; G89.4 Chronic pain syndrome; M79.18 Myalgia, other site; Z98.1 Arthrodesis status
CPT/HCPCS: 99213; G2211

== ENCOUNTER → 2024-07-10 14:25 | Outpatient (BNVA) | payer OTHER, SELFPAY | PROVIDERS: PCP Internal Medicine; Visit Provider Registered Nurse Emergency | DX: M53.3 Sacrococcygeal disorders, not elsewhere classified (principal); M16.0 Bilateral primary osteoarthritis of hip; M79.18 Myalgia, other site; G89.4 Chronic pain syndrome; Z98.1 Arthrodesis status; Z79.891 Long term (current) use of opiate analgesic | CPT/HCPCS: 99212 ==

== ENCOUNTER 2024-08-03 14:09 | Outpatient (REF) | payer OTHER, SELFPAY ==
--- NOTE | ~2024-08-03 | XR_ITS ---
EXAMINATION: XR ABDOMEN KUB CLINICAL INDICATION: N20.0 - Calculus of kidney COMPARISON: Renal ultrasound on 04/02/2024 TECHNIQUE: AP view of the abdomen. FINDINGS: The bowel gas pattern is normal with no evidence of ileus or obstruction. No unusual soft tissue calcifications are noted. The bones are unremarkable. There is a left pelvic stimulator device. XR/XR KUB IMPRESSION: No renal calculi identified. Electronically signed by: Guera Monroe MD 08/03/2024 04:49 PM [facility]
== END 2024-08-03 14:10 | disposition home or self-care (01) ==
LOC: HO.XRAY 14:09
PROVIDERS: PCP Internal Medicine; Visit Provider Nurse Practitioner Family
DX: N20.0 Calculus of kidney (principal)
CPT/HCPCS: 74018

== ENCOUNTER → 2024-08-27 16:17 | Outpatient (AMB) | payer OTHER, SELFPAY ==
--- NOTE | 2024-08-27 16:18 | A.OFFVIS_ITS ---
Intake Visit Reasons: 2m/KUB x-ray(set) Intake Note: Patient presents today for tele visit follow up on: chronic uti, OAB, prostatitis, and x-ray results Imaging Completed: 08/03/24 Urology Med: Finasteride, tamsulosin Antibiotic Allergy: none Blood Thinner: none Pump Tester Required: No Accompanied by: Self / Same As Patient Allergies linagliptin [From TRADJENTA] Allergy (Intermediate, Verified 08/27/24 16:37) RASH Xqkhuqp-QFE-BqZ Reductase Inhibitor [[id number]-WAG REDUCTASE INHIBITOR] Allergy (Intermediate, Verified 08/27/24 16:37) ITCHY,SKIN BREAKDOWN Medication List - Last Reconciled 08/27/24 by THIERRY Yee blood sugar diagnostic As directed blood-glucose meter As directed bupropion HCl XL 300 mg PO QAM carbamazepine 200 mg PO BEDTIME cyanocobalamin (vitamin B-12) 1,000 mcg PO DAILY cyclobenzaprine 5 mg PO TID PRN diazepam (Valium) 5 mg PO TID PRN diclofenac sodium 3% 1 appl topical BID docusate sodium 200 mg (2 x 100 mg) PO BEDTIME duloxetine 60 mg PO DAILY duloxetine 30 mg PO DAILY finasteride 5 mg PO DAILY lamotrigine 200 mg PO BID lancets (FreeStyle Lancets) As directed lisinopril 2.5 mg PO DAILY metformin ER 500 mg PO ONCE oxycodone 5 mg PO BID PRN pregabalin 300 mg PO BID psyllium husk (Metamucil) 1 tbsp PO DAILY quetiapine 25 mg PO BEDTIME rosuvastatin 10 mg PO DAILY tamsulosin 0.4 mg PO BEDTIME 90 days HPI Comments Details: Linus is a 54-year-old male patient of Dr. Bates. He has a past medical history of low back pain, peripheral neuropathy, arthritis, PTSD, type 2 diabetes, hypercalcemia, hematuria, and urinary frequency. He is being followed up on today via video telehealth for his nephrolithiasis. In discussion with the patient today he reports to be doing and feeling well. Recent KUB results reviewed with the patient today. KUB 08/18 The bowel gas pattern is normal with no evidence of ileus or obstruction. No unusual soft tissue calcifications are noted. The bones are unremarkable. There is a left pelvic stimulator device. No renal calculi noted. Patient reports noting issues with constipation upon p.r.n. dosing of oxycodone for ongoing lower back pain. He reports following up with pain management here at [facility] and is going to undergo surgical intervention intrathecal drug delivery device. He currently denies any bothersome urinary issues or concerns. He reports feelings InterStim has been extremely helpful with lower urinary tract symptoms he had been experiencing. He discusses doing well on program 03/02. He does report noting lower urinary tract symptoms with constipation. We discussed correlation of constipation and lower urinary tract symptoms. He has a previous history of laser prostatectomy in 2018. He has failed oral medications including oxybutynin, tolterodine, and Myrbetriq. He has also failed bladder Botox. PSAs are as follows: 11/15 0.6, 12/16 0.6, 06/17 0.3 When asked he denies urinary urgency, urinary frequency, incontinence, nocturia, dysuria, foul smelling urine, changes to urinary stream, flank pain, fever, and or chills. He is happy with her current voiding parameters. He otherwise offers no other issues or concerns at this time. Previous office note: Interstitial cystitis Biopsy proven November 2021 - Inflamed and congested mucosa 11/14 hydrodistention adverse event with complicated UTI Microgen 12/15 Enterococcus linezolid sensitive - 1 week trial Prostatitis Recurrent Occasional flares Last episode started July 2021 DNA analysis sensitivity to clindamycin and linezolid - Staphylococcus and Corynebacterium Lower urinary tract symptoms Urgency and frequency consistent with diabetic cystopathy - failed from medications oxybuytinin and tolterodine Underwent laser prostatectomy in 2018 Diabetic cystopathy with urgency - Had recurrent hematuria 12/14 Procedures - 11/14 Cystoscopy with fulguration neovascularity - 02/14 cystoscopy with bladder Botox Imaging 10/16 CT scan TURP defect, no stones Prior medications - oxybutynin 10 mg poor response, myrbetriq [facility] Medical History History of COVID-19 Low back pain Peripheral neuropathy Arthritis Unintentional weight loss PTSD (post-traumatic stress disorder) Hematuria Left lower quadrant pain Urinary frequency Type 2 diabetes mellitus with unspecified complications Other obstructive and reflux uropathy Benign prostatic hyperplasia with lower urinary tract symptoms Urgency incontinence Hypercalcemia Surgical History S/P fusion of sacroiliac joint History of esophagogastroduodenoscopy (EGD) Anal fissure History of surgery Hx of cystoscopy Hx of cardiac catheterization History of prostate surgery Hx of cystoscopy Hx of cystoscopy H/O colonoscopy Social History Are you a primary care management associate to a significant other at home: No 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) Alcohol intake: never Patient Tobacco Use Status: Former Tobacco user Tobacco use type: Cigarette Second Hand Smoke Exposure: No Substance Use Type: Marijuana service: Yes Review of Systems Const Reports as per HPI Eyes Reports no additional complaints Card Reports as per [facility] Reports as per HPI Musc Reports as per HPI Neuro Reports as per [facility] Psych Reports as per [facility] Endo Reports as per HPI Physical Exam Const General: cooperative, healthy appearing, comfortable, no acute distress, well developed, alert and awake Orientation/consciousness: patient oriented x3 Resp Effort & Inspection: normal respiratory effort and able to speak in complete sentences Neuro General: patient oriented x3 Psych Appearance: grossly normal and well kempt Mental Status: mental status grossly normal Speech and movement: Normal speech and movement present and Clear speech present Affect: normal affect Attitude: cooperative Thought process: Normal thought process present Thought content: Normal thought content present Insight: Fair insight present (Psych) Judgement: Fair judgement present (Psych) Telehealth Telehealth Telehealth Platform: [facility] Location of provider rendering services: practice address Location of patient: address on file Patient Identification confirmed using: Name, : Yes Telehealth method: video Patient verbally consented to treatment: Yes Patient verbally consented to billing insurance company: Yes Patient informed of any privacy concerns related to visit: Yes Results Reviewed Results Reviewed: Date of Service: 08/03/24 EXAMINATION: XR ABDOMEN KUB FINDINGS: The bowel gas pattern is normal with no evidence of ileus or obstruction. No unusual soft tissue calcifications are noted. The bones are unremarkable. There is a left pelvic stimulator device. IMPRESSION: No renal calculi identified. Assessment & Plan Assessment & Plan (1) BPH w urinary obs/LUTS: Code(s): N40.1 - Benign prostatic hyperplasia with lower urinary tract symptoms; N13.8 - Other obstructive and reflux uropathy Category: Medical (2) Interstitial cystitis (chronic) without hematuria: Code(s): N30.10 - Interstitial cystitis (chronic) without hematuria Category: Medical (3) Overactive bladder: Code(s): N32.81 - Overactive bladder Category: Medical (4) Nephrolithiasis: Code(s): N20.0 - Calculus of kidney Category: Medical Plan Recent KUB results reviewed with the patient today. Patient reports be happy with current voiding parameters on setting 7/8 with InterStim. Discussed correlation of constipation with lower urinary tract symptoms. Continue Flomax and finasteride as prescribed Discussed, educated, and stressed the importance of adequate hydration relation to nephrolithiasis as well as overall the and well-being. Discussed, educated, and stressed the importance of managing diabetes for improvement in lower urinary tract symptoms as well as overall health and well- being. Will obtain renal ultrasound 6 months. Will obtain PSA. Follow-up in 6 months with imaging and lab to be completed prior; or sooner with any issues, concerns, and or questions. Orders: Orders Prostate Specific Antigen 6 Months N13.8 - Other obstructive and reflux uropathy, N40.1 - Benign prostatic hyperplasia with lower urinary tract symptoms US renal BI 6 Months N20.0 - Calculus of kidney Medications: Discontinued oxycodone Partial Fill upon patient request. Discontinued Reason: Patient Completed Course 5 mg PO BID PRN 14 tabs 0RF p ain Patient Instructions: The patient had an opportunity to ask questions regarding the treatment plan. All questions were answered. Physical exam, labs, and imaging were discussed and reviewed in detail. As well as risks, benefits, and discussion of treatment choices. No major barriers to understanding were identified. The patient expre ssed understanding and agreement with the above treatment plan. The patient was made aware they should contact our office by phone for worsening of their current condition, the appearance of new symptoms, or with any questions or concerns. Compliance is encouraged with any medications and follow up testing that is ordered. It is a privilege to be allowed the opportunity to participate in? your urological care.? Again, if you have any questions or concerns If you have any questions or concerns please do not hesitate to contact me. The office is [phone]. This note is constructed using voice recognition software. While every effort has been made to ensure accuracy waiter/waitress economy class errors may have been included. Yours sincerely, WING Yee-JULIET Coding Level of Care Code Tele Est Pt Level 3 (83246) Diagnoses BPH w urinary obs/LUTS N40.1; N13.8 Interstitial cystitis (chronic) without hematuria N30.10 Overactive bladder N32.81 Nephrolithiasis N20.0
--- OUTSIDE RECORDS SUMMARY | 2024-08-27 17:30 | XMS_ITS | Continuity of Care Document ---
Author Name [facility] Organization [facility] Care Team Providers Care Human Services Care Specialist Name Role Phone [facility] Unavailable Unavailable Problems Combined list of problems from Department of Defense and Veterans Affairs facilities. It does not include entries that were removed or entered in error. Problem Status Onset Date Problem Type Date of Resolution Comments Source Abdominal pain Active Condition Jun 272020 Entered By: ERNESTO BARROW Comment: ABD Pain; Etio?Jul 19, 2021 Entered By: ERNESTO BARROW Comment: Sees Private [facility] Dr Melendrez [phone] TIMBER Benign hypertension Active Condition [facility] Benign prostatic hyperplasia Active Condition Jul 19, 2021 Entered By: ERNESTO BARROW Comment: Sees URO Every 3-4 Months for BPHJul 19, 2021 Entered By: ERNESTO BARROW Comment: Last Visit to Private URO was JUN 15:Jul 19, 2021 Entered By: ERNESTO BARROW Comment: Office Ultrasound Neg for Suspicious Lesions; No Heme on UA in JUN 15 TIMBER Depression Active Condition Jul 19 Entered By: ERNESTO BARROW Comment: Depression, Anxiety, PTSDJul 19, 2021 Entered By: ERNESTO BARROW Comment: Sees Private [facility] Dr. Suarez [phone] at [facility] 2021 Entered By: ERNESTO BARROW Comment: No SI / HINov 2020 Entered By: ERNESTO BARROW Comment: also Therapist Dr Green [facility] [phone] TIMBER Fibromyalgia Active Condition Jul 19, 2021 Entered By: ERNESTO BARROW Comment: Episodic Break-Throughs ; Severe when Sx Erupt; Affects Whole Body Jul 19, 2021 Entered By: ERNESTO BARROW Comment: Pain Management Dr So at [facility] [phone] TIMBER Gordon hematuria Active Condition Jul 19, 2021 Entered By: ERNESTO BARROW Comment: [facility] [phone][facility] Entered By: ERNESTO BARROW Comment: Denies Renal, Bladder CA; No Lithiasis; +BPH as of JUL 16springBAM Hypercholesterolemia Active Condition Jul 19, 2021 Entered By: ERNESTO BARROW Comment: h/o Elevated Lipids; On Crestor; Allergic to Other Statins TIMBER Overactive bladder Active Condition J 2021 Entered By: ERNESTO BARROW Comment: Sees URO; Gets Suprapubic BOTOX Inj.'s TIMBER Sciatica Active Condition Jul 19 Entered By: ERNESTO BARROW Comment: Discopathy, L-Spine; Radiates Left Leg, Down to LEFT Ankle TIMBER Screening for malignant neoplasm of colon done Active Condition Jul 19, 2021 Entered By: ERNESTO BARROW Comment: Initial Screen Colonoscopy 2020 at [facility];Jul 19, 2021 Entered By: ERNESTO BARROW Comment: Neg CRC or Polyps; repeat 2030 (sooner prn) TIMBER Shoulder pain Active Condition Jan Entered By: ERNESTO BARROW Comment: Left Shldr and L Elbow Pains: X-Rays [place] DEC 15 Unremarkable TIMBER Type 2 diabetes mellitus Active Condition Jul 19, 2021 Entered By: ERNESTO BARROW Comment: +Diabet Neuropathy Feet; Sees Neuro Outside VANov 2020 Entered By: ERNESTO BARROW Comment: Private Neuro Dr Iris [facility] [phone] 2020 Entered By: ERNESTO BARROW Comment: on Carbamepazine, Lyrica, for NeuropathyJul 19, 2021 Entered By: ERNESTO BARROW Comment: Sees Private Ophth Once Yr (Month of Aug); no DR as of JUL 16 TIMBER Under care of doctor Active Condition Jul 19, 2021 Entered By: ERNESTO BARROW Comment: Private PCP Dr Melissa [facility] [phone] TIMBER Diagnosis: ICD-10-CM Z46.0 Encounter for fit/adjst of spectacles and contact lenses Active Diagnosis [facility] Diagnosis: ICD-10-CM E11.9 Type 2 diabetes mellitus without complications Active Diagnosis [facility] Medications Combined list of outpatient medications from Department of Defense and Veterans Affairs facilities.Medications provided include 1) outpatient medications from the last 15 months, and 2) patient-reported medications. Medication Details Route Status Patient Instructions Prescription Expires Prescription Number Last Dispense Date Ordering Provider Order Date Order Qty Source BACLOFEN 20MG TAB TAKE ONE TABLET BY MOUTH ONCE DAILY [facility] BUPROPION HCL 300MG 24HR TAB,SA TAKE ONE TABLET BY MOUTH ONCE DAILY [facility] IELD CARBAMAZEPI NE 200MG TAB TAKE ONE TABLET BY MOUTH ONCE DAILY [facility] CARBOXYMETH YLCELLULOSE NA 0.5% SOLN,OPH INSTILL 1 DROP INTO EACH EYE FOUR TIMES A DAY FOR DRY EYE OPHTHA LMIC 06/13/2024 [id number] ANGEL,M ICHELE 2022 30 [facility] CLONAZEPAM 0.5MG TAB TAKE ONE TABLET BY MOUTH BEDTIME [facility] CYANOCOBALA MIN 100MCG TAB TAKE ONE TABLET BY MOUTH ONCE DAILY [facility] IELD DULOXETINE HCL 30MG CAP,EC TAKE 3 CAPSULES BY MOUTH ONCE DAILY [facility] IELD LISINOPRIL 2.5MG TAB TAKE ONE TABLET BY MOUTH ONCE DAILY [facility] I[facility] METFORMIN HCL 1000MG TAB TAKE ONE TABLET BY MOUTH TWICE DAILY [facility] 2021 [facility] IELD NAPROXEN 500MG TAB TAKE ONE TABLET BY MOUTH TWICE DAILY NEEDED [facility] 2021 [facility] IELD OTHER CAP/TAB TAKE LYRICA 300 MG BY MOUTH TWICE DAILY [facility] 2021 [facility] IELD QUETIAPINE FUMARATE 25MG TAB TAKE ONE TABLET BY MOUTH BEDTIME [facility] 2020 [facility] IELD ROSUVASTATI N CA 20MG TAB TAKE ONE-HALF TABLET BY MOUTH ONCE DAILY [facility] 2020 [facility] IELD SITAGLIPTIN PHOSPHATE 100MG TAB TAKE ONE TABLET BY MOUTH ONCE DAILY [facility] 2021 [facility] IELD TAMSULOSIN HCL 0.4MG CAP TAKE 1 CAPSULE BY MOUTH BEDTIME ORAL ACTIVE DANIEL BARROW 2020 [facility] IELD Allergies, Adverse Reactions, Alerts Combined list of allergies from Department of Defense and Veterans Affairs facilities. It does not include entries that were removed or entered in error. Substance Category Reaction Severity Reaction type Status Date Reported Comments Source No Known Allergies Drug allergy (disorder) active 2 [facility] Propensity to adverse reactions to drug (finding) Urticaria active 1 [facility] [place]OCOR Propensity to adverse reactions to drug (finding) Low blood pressure, Muscle pain active 1 [facility] Immunizations Combined list of available immunizations from the Department of Defense and Veterans Affairs facilities. Immunization Series Date Given Administered By Site Reaction Lot Number CVX Code Drug Military Analyst Status Comments Source INFLUENZA, UNSPECIFIED FORMULATION 2022 88 complet ed [facility] COVID-19 (MODERNA), MRNA, LNP-S, BIVALENT, PF, 50 MCG/0.5 ML OR 25MCG/0.25 ML DOSE 1 2022 229 complet ed [facility] COVID-19 (PFIZER), MRNA, LNP-S, PF, 30 MCG/0.3 ML DOSE 3 2021 208 complet ed [facility] PNEUMOCOCCAL POLYSACCHARID E PPV23 2021 33 complet ed [facility] IELD ZOSTER RECOMBINANT 2 2021 187 complet ed [facility] IELD TDAP 2020 115 complet ed [facility] ZOSTER RECOMBINANT 1 2020 187 complet ed [facility] INFLUENZA, UNSPECIFIED FORMULATION 2020 88 complet ed [facility] COVID-19 (PFIZER), MRNA, LNP-S, PF, 30 MCG/0.3 ML DOSE 2 2020 208 complet [facility] COVID-19 (PFIZER), MRNA, LNP-S, PF, 30 MCG/0.3 ML DOSE 1 2020 208 complet ed [facility] Encounters Combined list of: 1) Encounters from Department of Veterans Affairs facilities going back up to thelast 18 months. 2) Encounters from the Department of Defense facilities going back up to 280 months. Location Location Details Encounter Type Encounter Number Reason For Visit Attending Provider ADM Date DC Date Status Disposition Source [facility] Outpatient Encounter [id number] 03/30 [facility] Outpatient Encounter [id number] 04/30 [facility] EYE EXAM&TX ESTAB PT 1/>VST [id number] Diagnos is: ICD-10- CM E11.9 Type 2 diabete s mellitu s without complic ations< br/> COLEMAN ORTIZ 06/13 [facility] CPTR OPHTH DX IMG POST SEGMT [id number] Diagnos is: ICD-10- CM E11.9 Type 2 diabete s mellitu s without complic ations< br/> COLEMAN ORTIZ 06/13 [facility] Out[facility] Encounter [id number] 06/13 [facility] FIT SPECTACLES MULTIFOCAL [id number] Diagnos is: ICD-10- CM Z46.0 Encount er for fit/adj st of spectac les and contact lenses< br/> MARLY FORRESTER 06/13 [facility] Outpatient Encounter [id number] 09/30 [facility] [place] Outpatient Encounter [id number] 10/09 [place] [facility] Outpatient Encounter [id number] 10/09 [facility] Out[facility] Encounter [id number] 10/10 [facility] Out[facility]counter [id number] 12/01 [facility] Out[facility]counter [id number] 12/01 [facility] Out[facility] Encounter [id number] 12/03 [facility] Out[facility] Encounter [id number] 12/23 [facility] Out[facility] Encounter [id number] 12/23 [facility] Out[facility] Encounter [id number] 01/06 [facility] Out[facility] Encounter [id number] 01/09 [facility] Out[facility] Encounter [id number] 07/01 [facility] Social History Combined list of available smoking, tobacco, and other social history from Department of Defense and Veterans Affairs facilities. Social History Type Response Date Comment Sourc e Tobacco smoking status NHIS [facility]-TOBACCO FORMER USER 10/09/2023 TIMBER History of tobacco use [place]-TOBACCO QUIT 15 YRS OR MORE 10/09/2023 TIMBER History of tobacco use [place]-TOBACCO FORMER USER 07/19/2021 [facility] This section is an empty social history section. DoD Advance Directives List of completed, amended, or rescinded Advance Directives on record at Department of Veterans Affairs facilities. An actual copy of the Directive is not included. Date Advance Directive Provider Source 09/20/2021 ADVANCE DIRECTIVE RADHA MADERA 07/14/2021 ADVANCE DIRECTIVE RADHA MADERA
--- OUTSIDE RECORDS SUMMARY | 2024-08-27 17:30 | XMS_ITS ---
Author Name [facility] [place] [facility] [place] Address [address] [place] [address] Care Team Providers Care High Risk Ob Name Role Phone ERNESTO BARROW Primary Care Provider Unavailabl e Insurance Providers: All historical and current Section Date Range: From patient's date of to the date document was created. This section includes the names of all active insurance providers for the patient. Insurance Provider Type of Coverage Plan Name Start of Policy Coverage End of Policy Coverage Group Number Member ID Insurance Provider's Telephone Number Policy Hoyt's Name Patient's Relationship to Policy Hoyt [employer] MEDICARE ADVANTAGE MCR ([facility]) Aug 26, 2019 [id number] Marcela GUERRERO PATIENT [facility] ([facility]) MEDICARE ADVANTAGE MCR ([facility]) Aug 26, 2019 [id number] 490 Marcela GUERRERO PATIENT Selected Encounter This section includes the information on record at [place] for the Encounter. Date/Time Encounter Type Encounter Description Reason Pro vider Source Oct 09, 2023 03:16 PM Outpatient Encounter PRIMARY CARE/MEDICINE IHE Encounter Template Text not used by [place] Plan of Treatment: Future Appointments (+ 6 months) and Future Tests (+/- 45 days) The Plan of Treatment section includes future care activities for the patient from all [facility] treatmentfacilities. This section includes future appointments and future orders which are active, pending or scheduled. Active, Pending, and Scheduled Orders This section includes a listing of several types of active, pending, and scheduled orders, including clinic medications orders, diagnostic test orders, procedure orders and consult orders; where the start date of the order is 45 days before the date of the Encounter or 45 days after the date of theEncounter. The data comes from all [facility] facilities. Test Date/Time Test Type Test Details Facility Name Sep 30, 2023 12:00 AM Laboratory - Chemi stry Order BASIC METABOLIC PANEL (fasting) BLOOD (SST-SERUM) [facility] Sep 30, 2023 12:00 AM Laboratory - Chemi stry Order LIPID PANEL FASTING BLOOD (SST-SERUM) [facility] Sep 30, 2023 12:00 AM Laboratory - Chemi stry Order LIVER FUNCTION BLOOD (SST-SERUM) [facility] Sep 30, 2023 12:00 AM Laboratory - Chemi stry Order CBC AND DIFF (AUTO) BLOOD (LAV-BLOOD) [facility] Sep 30, 2023 12:00 AM Laboratory - Chemi stry Order HEMOGLOBIN A1C PANEL BLOOD (LAV-BLOOD) [facility] Sep 30, 2023 12:00 AM Laboratory - Chemi stry Order TSH BLOOD (SST-SERUM) [facility] Sep 30, 2023 12:00 AM Laboratory - Chemi stry Order CALCIUM BLOOD (SST-SERUM) [facility] Sep 30, 2023 12:00 AM Laboratory - Chemi stry Order URIC ACID BLOOD (SST-SERUM) [facility] Sep 30, 2023 12:00 AM Laboratory - Chemi stry Order VITAMIN D (25-OH) BLOOD (SST-SERUM) SP ONCE [place] Sep 30, 2023 12:00 AM Laboratory - Chemi stry Order URINALYSIS URINE [facility] Sep 30, 2023 12:00 AM Laboratory - Chemi stry Order MICROALBUMIN CREATININE RATIO PANEL URINE (RANDOM) [facility] Sep 30, 2023 12:00 AM Laboratory - Chemi stry Order FERRITIN BLOOD (SST-SERUM) [facility] Sep 30, 2023 12:00 AM Laboratory - Chemi stry Order PSA BLOOD (SST-SERUM) [facility] Social History: Smoking Status (Most current) and Tobacco Use (All prior to encounter date) This section includes the most current, and the historical, smoking and tobacco- related health factors from the [place] facility where the Encounter took place. Current Smoking Status This section includes the most current smoking, or tobacco-related health factor, from the [place] facility where the Encounter took place. Date/Time Current Smoking Status Comment Jenny ity Jul 19, 2021 01:11 PM VA-TOBACCO FORMER USER [facility] Tobacco Use History This section includes a history of the smoking, or tobacco-related health factors, that were collected on or before the date of the Encounter. The data comes from the [place] facility where the Encounter took place. Date/Time Smoking Status/Tobacco Use Comment F acility Jul 19, 2021 01:11 PM [place]-TOBACCO QUIT 15 YRS OR MORE [facility] Advance Directives: All historical and current Section Date Range: From patient's date of to the date document was created. This section includes ALL of a patient's completed or amended [place] Advance and Rescinded Directives. The entries below indicate that a directive exists for the patient, but an actual copy is not included with this document. The data comes from all [place] facilities. Date Advance Directives Provider Source Sep 20, 2021 ADVANCE DIRECTIVE RADHA MADERA Jul 14, 2021 ADVANCE DIRECTIVE RADHA MADERA Encounter Notes: All associated encounter notes This section contains the clinical notes associated to the Encounter. Date/Time Encounter Note(s) Provider Source Oct 09, 2023 03:16 PM NURSING NOTE: LOCAL TITLE: PRIMARY CARE NURSE NOTE STANDARD TITLE: NURSING NOTE DATE OF NOTE: OCT 09, 2023@15:16 ENTRY DATE: OCT 09, 2023@15:18:15 AUTHOR: JOHN PLASENCIA EXP COSIGNER: URGENCY: STATUS: COMPLETED [place] was a NO SHOW for his appointment with PCP. /alison/ RYANN PLASENCIA LPN LPN Signed: 10/09/2023 15:18 Receipt Acknowledged By: 10/09/2023 15:34 /alison/ Ying Cervantes RN Registered Nurse (RN) 10/09/2023 15:44 /alison/ ERWIN ODOM LPN LICENSED PRACTICAL NURSE 10/10/2023 08:20 /alison/ LALA DHALIWAL Advanced Product Marketing Programs Manager RYANN PLASENCIA
--- OUTSIDE RECORDS SUMMARY | 2024-08-27 17:30 | XMS_ITS | Encounter Summary ---
Author Name [facility] [place] Address [address] [place] [address] Care Team Providers Care Rope Tier Name Role Phone ERNESTO BARROW Primary Care [...] Hoyt [employer] MEDICARE ADVANTAGE [facility] ([facility]) Aug 26, 2019 [id number] 490 Marcela GUERRERO PATIENT [facility] ([facility]) MEDICARE ADVANTAGE [facility] ([facility]) Aug 26, 2019 [id number] 490 Marcela GUERRERO PATIENT Selected Encounter This section includes the information on record at [place] for the Encounter. Date/Time Encounter Type Encounter Description Reason Pro vider Source Dec 24, 2023 02:34 PM Outpatient Encounter OPTOMETRY E Encounter Template Text not used by [place] Social History: Smoking Status (Most current) and Tobacco Use (All prior to encounter date) This section includes the most current, and the historical, smoking and tobacco- related health factors from the [place] facility where the Encounter took place. Current Smoking Status This section includes the most current smoking, or tobacco-related health factor, from the [place] facility where the Encounter took place. Date/Time Current Smoking Status Comment Jenny ity Jul 19, 2021 01:11 PM VA-TOBACCO FORMER USER [facility] Tobacco Use History This section includes a history of the smoking, or tobacco-related health factors, that were collected on or before the date of the Encounter. The data comes from the [place] facility where the Encounter took place. Date/Time Smoking Status/Tobacco Use Comment F acility Jul 19, 2021 01:11 PM [place]-TOBACCO QUIT 15 YRS OR MORE [facility] Advance Directives: All historical and current Section Date Range: From patient's date of to the date document was created. This section includes ALL of a patient's completed or amended [place] Advance and Rescinded Directives. The entries below indicate that a directive exists for the patient, but an actual copy is not included with this document. The data comes from all [place] facilities. Date Advance Directives Provider Source Sep 20, 2021 ADVANCE DIRECTIVE RADHA MADERA Jul 14, 2021 ADVANCE DIRECTIVE RADHA MADERA Encounter Notes: All associated encounter notes This section contains the clinical notes associated to the Encounter. Date/Time Encounter Note(s) Provider Source Dec 24, 2023 02:34 PM TELEPHONE BRIELLE R NOTE: LOCAL TITLE: TELEPHONE NOTE/SPECIALTY CLINIC STANDARD TITLE: TELEPHONE ENCOUNTER NOTE DATE OF NOTE: DEC 24, 2023@14:34 ENTRY DATE: DEC 24, 2023@14:34:34 AUTHOR: YASMIN GRAVES EXP COSIGNER: URGENCY: STATUS: COMPLETED TELEPHONE NOTE/SPECIALTY CLINIC Has ADDENDA called stating he needs a letter so he can have his window tinted 6 or 6.5 %. The stated he gets bad headaches from the brightness of the sun and that he would get a letter from his eye dr to get this done. Veterans phone number on file has been confirmed. /alison/ YASMIN GRAVES COMPUTER HARDWARE TECHNICIAN Signed: 12/24/2023 14:37 Receipt Acknowledged By: 12/24/2023 14:49 /alison/ Rodolfo Perez OD CHIEF OF OPTOMETRY 12/24/2023 ADDENDUM STATUS: COMPLETED He has no ocular diagnosis that supports need for window tint greater than wht is allowed by [facility]. Recommend order polarized sun glasses since Photochromatic glasses do not darken in the care. He has been wearing prescription sunglasses indicates he is still light sensitive. I indicated that he does not have a specific medical/ocular diagnosis that meets the criteria and we will order a pair of polarized sunglasses using his same frame of prescription. He appreciated the return call /es/ Rodolfo Perez OD CHIEF OF OPTOMETRY Signed: 12/24/2023 14:54 YASMIN GRAVES CNTRL [facility]
--- OUTSIDE RECORDS SUMMARY | 2024-08-27 17:30 | XMS_ITS | Encounter Summary ---
Author Name [facility] [place] Organization [place] Address [address] [place] [address] Care Team Providers Care Life Underwriter Name Role Phone ERNESTO BARROW Primary Care [...] [employer] MEDICARE ADVANTAGE MCR ([facility]) Aug 26, 2019 [id number] 490 Marcela GUERRERO PATIENT [facility] ([facility]) MEDICARE ADVANTAGE MCR ([facility]) Aug 26, 2019 [id number] 490 Marcela GUERRERO PATIENT Selected Encounter This section includes the information on record at [place] for the Encounter. Date/Time Encounter Type Encounter Description Reason Pro vider Source IHE Encounter Template Text not used by [place] Advance Directives: All historical and current Section Date Range: From patient's date of to the date document was created. This section includes ALL of a patient's completed or amended [place] Advance and Rescinded Directives. The entries below indicate that a directive exists for the patient, but an actual copy is not included with this document. The data comes from all [place] facilities. Date Advance Directives Provider Source Sep 20, 2021 ADVANCE DIRECTIVE RADHA MADERA Jul 14, 2021 ADVANCE DIRECTIVE RADHA MADERA
--- OUTSIDE RECORDS SUMMARY | 2024-08-27 17:30 | XMS_ITS ---
Author Name [facility] [place] Address [address] [place] [address] Care Team Providers Care Legal Referee Name Role Phone ERNESTO BARROW Primary Care [...] [employer] MEDICARE ADVANTAGE MCR ([facility] Aug 26, 2019 [id number] 490 Marcela GUERRERO PATIENT [facility] ([facility] MEDICARE ADVANTAGE MCR ([facility] Aug 26, 2019 [id number] 490 Marcela GUERRERO PATIENT Selected Encounter This section includes the information on record at [place] for the Encounter. Date/Time Encounter Type Encounter Description Reason Pro vider Source Oct 10, 2023 08:26 AM Outpatient Encounter PRIMARY CARE/MEDICINE IHE Encounter Template Text not used by [place] Plan of Treatment: Future Appointments (+ 6 [...] of theEncounter. The data comes from all [facility] facilities. Test Date/Time Test Type Test Details Facility Name Sep 30, 2023 12:00 AM Laboratory - Chemi stry Order BASIC METABOLIC PANEL (fasting) BLOOD (SST-SERUM) [facility] Sep 30, 2023 12:00 AM Laboratory - Chemi stry Order LIPID PANEL FASTING BLOOD (SST-SERUM) [facility] Sep 30, 2023 12:00 AM Laboratory - Chemi stry Order LIVER FUNCTION BLOOD (SST-SERUM) [facility] Sep 30, 2023 12:00 AM Laboratory - Chemi stry Order CBC AND DIFF (AUTO) BLOOD (LAV-BLOOD) [facility] Sep 30, 2023 12:00 AM Laboratory - Chemi stry Order HEMOGLOBIN A1C PANEL BLOOD (LAV-BLOOD) [facility] Sep 30, 2023 12:00 AM Laboratory - Chemi stry Order TSH BLOOD (SST-SERUM) [facility] Sep 30, 2023 12:00 AM Laboratory - Chemi stry Order CALCIUM BLOOD (SST-SERUM) [facility] Sep 30, 2023 12:00 AM Laboratory - Chemi stry Order URIC ACID BLOOD (SST-SERUM) [facility] Sep 30, 2023 12:00 AM Laboratory - Chemi stry Order VITAMIN D (25-OH) BLOOD (SST-SERUM) SP ONCE [place] Sep 30, 2023 12:00 AM Laboratory - Chemi stry Order URINALYSIS URINE [facility] Sep 30, 2023 12:00 AM Laboratory - Chemi stry Order MICROALBUMIN CREATININE RATIO PANEL URINE (RANDOM) [facility] Sep 30, 2023 12:00 AM Laboratory - Chemi stry Order FERRITIN BLOOD (SST-SERUM) [facility] Sep 30, 2023 12:00 AM Laboratory - Chemi stry Order PSA BLOOD (SST-SERUM) [facility] Social History: Smoking Status (Most current) and Tobacco Use (All prior to encounter date) This section includes the most current, and the historical, smoking and tobacco- related health factors from the [place] facility where the Encounter took place. Current Smoking Status This section includes the most current smoking, or tobacco-related health factor, from the [place] facility where the Encounter took place. Date/Time Current Smoking Status Comment Jenny ity Jul 19, 2021 01:11 PM VA-TOBACCO FORMER USER [facility] Tobacco Use History This section includes a history of the smoking, or tobacco-related health factors, that were collected on or before the date of the Encounter. The data comes from the [place] facility where the Encounter took place. Date/Time Smoking Status/Tobacco Use Comment F acility Jul 19, 2021 01:11 PM [place]-TOBACCO QUIT 15 YRS OR MORE [facility] Advance Directives: All historical and current Section Date Range: From patient's date of to the date document was created. This section includes ALL of a patient's completed or amended [place] Advance and Rescinded Directives. The entries below indicate that a directive exists for the patient, but an actual copy is not included with this document. The data comes from all [place] facilities. Date Advance Directives Provider Source Sep 20, 2021 ADVANCE DIRECTIVE RADHA MADERA Jul 14, 2021 ADVANCE DIRECTIVE RADHA MADERA Encounter Notes: All associated encounter notes This section contains the clinical notes associated to the Encounter. Date/Time Encounter Note(s) Provider Source Oct 10, 2023 08:26 AM CLERICAL NOTE: LOCAL TITLE: APPOINTMENT NO SHOW STANDARD TITLE: CLERICAL NOTE DATE OF NOTE: OCT 10, 2023@08:26 ENTRY DATE: OCT 10, 2023@08:26:32 AUTHOR: BLAINE DHALIWAL COSIGNER: URGENCY: STATUS: COMPLETED Patient Name: KAVON GUERRERO JR Patient SSN: [id number] Date and time of Appointment No show : 10/10/23 08:26 PATIENT PHONE - PHONE NUMBER [CELLULAR] - Patient's medical record was reviewed. Follow-up actions were determined and initiated: Please check/complete as applies: [X]Telephoned Directly [ ]Re-scheduled for next available appt [X]Sent a N0-show letter ( must call for appointment) [ ]Other (Emergent/Overbook, etc.): Additional Comments: NO SHOW for PCP APPT 10/09/2023 Future Clinic Visits 06/30/2024 11:00 CWM/REJI/OPTOMETRY/ANGEL /alison/ LALA DHALIWAL Advanced Industrial Workers Signed: 10/10/2023 08:30 LALA DHALIWAL [place]
--- OUTSIDE RECORDS SUMMARY | 2024-08-27 17:30 | XMS_ITS | Encounter Summary ---
Author Name [facility] [place] Organization [facility] [place] Address [address] [place] [address] Care Team Providers Care Food Preservation Scientist Name Role Phone ERNESTO BARROW Primary Care [...] [employer] MEDICARE ADVANTAGE MCR ([facility]) Aug 26, 2019 [id number] 490 Marcela GUERRERO PATIENT [facility] ([facility]) MEDICARE ADVANTAGE [facility] ([facility]) Aug 26, 2019 [id number] 490 Marcela GUERRERO PATIENT Selected Encounter This section includes the information on record at [place] for the Encounter. Date/Time Encounter Type Encounter Description Reason Pro vider Source Dec 02, 2023 12:00 AM Outpatient Encounter EVENT (HISTORICAL) IHE Encounter Template Text not used by [place] Social History: Smoking Status (Most current) and Tobacco Use (All prior to encounter date) This section includes the most current, and the historical, smoking and tobacco- related health factors from the [place] facility where the Encounter took place. Current Smoking Status This section includes the most current smoking, or tobacco-related health factor, from the [place] facility where the Encounter took place. Date/Time Current Smoking Status Comment Facil ity Jul 19, 2021 01:11 PM VA-TOBACCO FORMER USER [facility] Tobacco Use History This section includes a history of the smoking, or tobacco-related health factors, that were collected on or before the date of the Encounter. The data comes from the [place] facility where the Encounter took place. Date/Time Smoking Status/Tobacco Use Comment F acility Jul 19, 2021 01:11 PM [place]-TOBACCO QUIT 15 YRS OR MORE [facility] Advance Directives: All historical and current Section Date Range: From patient's date of to the date document was created. This section includes ALL of a patient's completed or amended [place] Advance and Rescinded Directives. The entries below indicate that a directive exists for the patient, but an actual copy is not included with this document. The data comes from all [place] facilities. Date Advance Directives Provider Source Sep 20, 2021 ADVANCE DIRECTIVE RADHA MADERA Jul 14, 2021 ADVANCE DIRECTIVE RADHA MADERA
--- OUTSIDE RECORDS SUMMARY | 2024-08-27 17:30 | XMS_ITS | Encounter Summary ---
Author Name [facility] [place] Organization [place] Address [address] [place] [address] Care Team Providers Care Pot Fisher Name Role Phone ERNESTO BARROW Primary Care [...] Hoyt [employer] MEDICARE ADVANTAGE [facility] ([facility]) Aug 26, 2019 [id number] [phone] Marcela GUERRERO PATIENT [facility] ([facility]) MEDICARE ADVANTAGE [facility] ([facility]) Aug 26, 2019 [id number] 490 Marcela GUERRERO PATIENT Selected Encounter This section includes the information on record at [place] for the Encounter. Date/Time Encounter Type Encounter Description Reason Pro vider Source Dec 24, 2023 04:26 PM Outpatient Encounter OPTOMETRY E Encounter Template Text not used by [place] Social History: Smoking Status (Most current) and Tobacco Use (All prior to encounter date) This section includes the most current, and the historical, smoking and tobacco- related health factors from the [place] facility where the Encounter took place. Current Smoking Status This section includes the most current smoking, or tobacco-related health factor, from the [place] facility where the Encounter took place. Date/Time Current Smoking Status Comment Jenny ity Jul 19, 2021 01:11 PM VA-TOBACCO FORMER USER [facility] Tobacco Use History This section includes a history of the smoking, or tobacco-related health factors, that were collected on or before the date of the Encounter. The data comes from the [place] facility where the Encounter took place. Date/Time Smoking Status/Tobacco Use Comment F acility Jul 19, 2021 01:11 PM [place]-TOBACCO QUIT 15 YRS OR MORE [facility] Advance Directives: All historical and current Section Date Range: From patient's date of to the date document was created. This section includes ALL of a patient's completed or amended [place] Advance and Rescinded Directives. The entries below indicate that a directive exists for the patient, but an actual copy is not included with this document. The data comes from all [place] facilities. Date Advance Directives Provider Source Sep 20, 2021 ADVANCE DIRECTIVE RADHA MADERA Jul 14, 2021 ADVANCE DIRECTIVE RADHA MADERA Encounter Notes: All associated encounter notes This section contains the clinical notes associated to the Encounter. Date/Time Encounter Note(s) Provider Source Dec 24, 2023 04:26 PM OPTOMETRY NOTE: LOCAL TITLE: OPTOMETRY NOTE STANDARD TITLE: OPTOMETRY NOTE DATE OF NOTE: DEC 24, 2023@16:26 ENTRY DATE: DEC 24, 2023@16:26:21 AUTHOR: ANA HEREDIA EXP COSIGNER: URGENCY: STATUS: COMPLETED The quote provided below is for informational purposes only. Please verify prior to the creation of a purchase order. KAVON CONNELLADO [id number] RX INFORMATION OD +1.25 -0.50 X100 Add:+2.25 Pzm:0.00 Dir: Prz2:0.00 Dir2: OS +1.00 -0.50 X85 Add:+2.25 Pzm:0.00 Dir: Prz2:0.00 Dir2: FITTING INFORMATION FPD: NPD:-3 [place]:R:34.5 L:32.0 SEG HT:R:20 L:20 Tint:None Shade:None VA Billable Items FRAME: [address] [id number] Right Lens: POLY VA PROGRESSIVE POLARIZED [place] 1.586 POLY Left Lens: POLY [place] PROGRESSIVE POLARIZED [place] 1.586 POLY [place] ANTI-REFLECTIVE COATING /alison/ ANA HEREDIA BODY BUILDER APPRENTICE Signed: 12/24/2023 16:26 Receipt Acknowledged By: 12/25/2023 07:52 /alison/ Lissett Garcia Optometry Health Contractor [place] [employer] ANA HEREDIA CNTRL TRN [facility]
--- OUTSIDE RECORDS SUMMARY | 2024-08-27 17:30 | XMS_ITS | Encounter Summary ---
Author Name [facility] [place] Address [address] [place] [address] Care Team Providers Care Motor Vehicle Operator Road Supervisor Name Role Phone ERNESTO BARROW Primary Care [...] [employer] MEDICARE ADVANTAGE MCR ([facility]) Aug 26, 2019 [id number] [id number] [phone] Marcela GUERRERO PATIENT [facility] ([facility]) MEDICARE ADVANTAGE MCR ([facility]) Aug 26, 2019 [id number] 490 Marcela GUERRERO PATIENT Selected Encounter This section includes the information on record at [place] for the Encounter. Date/Time Encounter Type Encounter Description Reason Pro vider Source January 10, 2024 12:00 AM Outpatient Encounter EVENT (HISTORICAL) IHE Encounter Template Text not used by [place] Plan of Treatment: Future Appointments (+ 6 months) and Future Tests (+/- 45 days) The Plan of Treatment section includes future care activities for the patient from all [facility] treatment[facility]ilities. This section includes future appointments and future orders which are active, pending or scheduled. Future Appointments This section includes appointments that were scheduled to occur 6 months from the date of the Encounter, up to a maximum of 20 appointments. The data comes from all [place] treatment facilities. Appointment Date/Time Appointment Type Appointme nt Facility Name Jun 30, 2024 11:00 AM AMBULATORY - MEDICINE [facility] Social History: Smoking Status (Most current) and Tobacco Use (All prior to encounter date) This section includes the most current, and the historical, smoking and tobacco- related health factors from the [place] facility where the Encounter took place. Current Smoking Status This section includes the most current smoking, or tobacco-related health factor, from the [place] facility where the Encounter took place. Date/Time Current Smoking Status Comment Facil ity Jul 19, 2021 01:11 PM VA-TOBACCO FORMER USER [facility] Tobacco Use History This section includes a history of the smoking, or tobacco-related health factors, that were collected on or before the date of the Encounter. The data comes from the [place] facility where the Encounter took place. Date/Time Smoking Status/Tobacco Use Comment F acility Jul 19, 2021 01:11 PM [place]-TOBACCO QUIT 15 YRS OR MORE [facility] Advance Directives: All historical and current Section Date Range: From patient's date of to the date document was created. This section includes ALL of a patient's completed or amended [place] Advance and Rescinded Directives. The entries below indicate that a directive exists for the patient, but an actual copy is not included with this document. The data comes from all [place] facilities. Date Advance Directives Provider Source Sep 20, 2021 ADVANCE DIRECTIVE RADHA MADERA Jul 14, 2021 ADVANCE DIRECTIVE RADHA MADERA
--- OUTSIDE RECORDS SUMMARY | 2024-08-27 17:30 | XMS_ITS | Encounter Summary ---
Author Name [facility] [place] [facility] [place] Address [address] [place] [address] Care Team Providers Care Guidance Adviser Name Role Phone ERNESTO BARROW Primary Care [...] [employer] MEDICARE ADVANTAGE MCR ([facility]) Aug 26, 2019 [id number] Marcela GUERRERO PATIENT [facility] ([facility]) MEDICARE ADVANTAGE MCR ([facility]) Aug 26, 2019 [id number] 490 Marcela GUERRERO PATIENT Selected Encounter This section includes the information on record at [place] for the Encounter. Date/Time Encounter Type Encounter Description Reason Pro vider Source Oct 09, 2023 03:00 PM Outpatient Encounter PRIMARY CARE/MEDICINE [facility] Encounter Template Text not used by [place] Plan of Treatment: Future Appointments (+ 6 [...] of theEncounter. The data comes from all [place] treatment facilities. Test Date/Time Test Type Test Details Facility Name Sep 30, 2023 12:00 AM Laboratory - Chemi stry Order BASIC METABOLIC PANEL (fasting) BLOOD (SST-SERUM) [facility] Sep 30, 2023 12:00 AM Laboratory - Chemi stry Order LIPID PANEL FASTING BLOOD (SST-SERUM) [facility] Sep 30, 2023 12:00 AM Laboratory - Chemi stry Order LIVER FUNCTION BLOOD (SST-SERUM) [facility] Sep 30, 2023 12:00 AM Laboratory - Chemi stry Order CBC AND DIFF (AUTO) BLOOD (LAV-BLOOD) [facility] Sep 30, 2023 12:00 AM Laboratory - Chemi stry Order HEMOGLOBIN A1C PANEL BLOOD (LAV-BLOOD) [facility] Sep 30, 2023 12:00 AM Laboratory - Chemi stry Order TSH BLOOD (SST-SERUM) [facility] Sep 30, 2023 12:00 AM Laboratory - Chemi stry Order CALCIUM BLOOD (SST-SERUM) [facility] Sep 30, 2023 12:00 AM Laboratory - Chemi stry Order URIC ACID BLOOD (SST-SERUM) [facility] Sep 30, 2023 12:00 AM Laboratory - Chemi stry Order VITAMIN D (25-OH) BLOOD (SST-SERUM) [facility] Sep 30, 2023 12:00 AM Laboratory - Chemi stry Order URINALYSIS URINE [facility] Sep 30, 2023 12:00 AM Laboratory - Chemi stry Order MICROALBUMIN CREATININE RATIO PANEL URINE (RANDOM) [facility] Sep 30, 2023 12:00 AM Laboratory - Chemi stry Order FERRITIN BLOOD (SST-SERUM) [facility] Sep 30, 2023 12:00 AM Laboratory - Chemi stry Order PSA BLOOD (SST-SERUM) [facility] Social History: Smoking Status (Most current) and Tobacco Use (All prior to encounter date) This section includes the most current, and the historical, smoking and tobacco- related health factors from the [place] facility where the Encounter took place. Current Smoking Status This section includes the most current smoking, or tobacco-related health factor, from the [place] facility where the Encounter took place. Date/Time Current Smoking Status Comment Jenny trejo Oct 09, 2023 03:00 PM VA-TOBACCO FORMER USER [facility] Tobacco Use History This section includes a history of the smoking, or tobacco-related health factors, that were collected on or before the date of the Encounter. The data comes from the [place] facility where the Encounter took place. Date/Time Smoking Status/Tobacco Use Comment F acility Oct 09, 2023 03:00 PM VA-TOBACCO QUIT 15 YRS OR MORE [facility] Advance Directives: All historical and current Section Date Range: From patient's date of to the date document was created. This section includes ALL of a patient's completed or amended [place] Advance and Rescinded Directives. The entries below indicate that a directive exists for the patient, but an actual copy is not included with this document. The data comes from all [place] facilities. Date Advance Directives Provider Source Sep 20, 2021 ADVANCE DIRECTIVE RADHA MADERA Jul 14, 2021 ADVANCE DIRECTIVE RADHA MADERA Encounter Notes: All associated encounter notes This section contains the clinical notes associated to the Encounter. Date/Time Encounter Note(s) Provider Source January 10, 2024 02:23 PM PREVENTIVE MEDICIN E NURSING NOTE: LOCAL TITLE: CLINICAL REMINDERS/NURSING STANDARD TITLE: PREVENTIVE MEDICINE NURSING NOTE DATE OF NOTE: JANUARY 10, 2024@14:23 ENTRY DATE: JANUARY 10, 2024@14:23:59 AUTHOR: MILDRED CERVANTES EXP COSIGNER: URGENCY: STATUS: COMPLETED CLINICAL REMINDERS/NURSING Has ADDENDA Avg Risk Colorectal Cancer Screen: AVERAGE RISK colorectal cancer screening is due based on information available to this clinical reminder Prior/outside colonoscopy results: Hyperplastic Polyp, Repeat 10 years Date: May 06, 2019 Colonoscopy reminder set 5 years from JANUARY 10, 2024. /alison/ Mildred Cervantes RN Registered Nurse (RN) Signed: 01/10/2024 14:27 01/14/2024 ADDENDUM STATUS: COMPLETED Hemoglobin A1C: [place] had HBA1C result from another health care site (results required). Date: December 02, 2023 Location: [facility] Results: 6.7 Lipid Screening: [place] has documentation of outside lipid profile results. Outside Location and date. Date: December 02, 2023 Location: [facility] Total Cholesterol result: 141 Triglycerides result: 75 HDL result: 66 LDL result: 60 Outside LDL<100. Date: December 02, 2023 /james Cervantes RN Registered Nurse (RN) Signed: 01/14/2024 12:42 01/14/2024 ADDENDUM STATUS: COMPLETED Influenza Immunization: The patient has received the seasonal influenza vaccine for the current season at another location. Documented: INFLUENZA, UNSPECIFIED FORMULATION Historical Date Administered: Apr 30, 2023 Outside Location: [facility] Information Source: FROM PATIENT'S WRITTEN RECORD COVID-19 Immunization: Patient received a prior dose of the Moderna Bivalent booster. Documented: COVID-19 (MODERNA), MRNA, LNP-S, BIVALENT, PF, 50 MCG/0.5 ML OR 25MCG/0.25 ML DOSE Historical Date Administered: Sep 13, 2022 Series: Series 1 Outside Location: [facility] Information Source: FROM PATIENT'S WRITTEN RECORD Tobacco Use Screening: The patient is a former tobacco user. The patient quit fifteen or more years ago. Diabetes: Kidney Health Evaluation: Last eGFR: EGFR No data available for: eGFR(CKD-EPI 2020) eGFR Last uACR: No uACR found within the past year eGFR and uACR (estimated Glomerular Filtration Rate and Urine Albumin-Creatinine Ratio)* Previous eGFR completed at a location other than this [place] Previous eGFR with actual (numerical) results Date: December 02, 2023 Location: [facility] eGFR: 61 mL/min/{1.73_m2} Previous uACR completed at a location other than this [place] Previous uACR with actual (numeric) results Date: December 02, 2023 Location: [facility] uACR: 153 mg/g Previous urine creatinine completed at a location other than this [facility]: Date of Test: December 02, 2023 Location: [facility] Urine Creatinine 153 mg/dL Previous urine albumin completed at a location other than this [place] Previous urine albumin with actual(numerical) results Date of Test: December 02, 2023 Urine Albumin 6.5 mg/dL /alison/ Mildred Cervantes RN Registered Nurse (RN) Signed: 01/14/2024 12:59 MILDRED CERVANTES January 08, 2024 02:46 PM ADMINISTRATIVE NOT E: LOCAL TITLE: ADMINISTRATIVE NOTE STANDARD TITLE: ADMINISTRATIVE NOTE DATE OF NOTE: JANUARY 08, 2024@14:46 ENTRY DATE: JANUARY 08, 2024@14:46:14 AUTHOR: MILDRED CERVANTES EXP COSIGNER: URGENCY: STATUS: COMPLETED ADMINISTRATIVE NOTE Has ADDENDA AMSA--Please obtain office notes, labs, immunization list & med list from the past year. Also the latest Colonoscopy w/recall date & pathology. Thanks Private PCP Dr Torres [facility] [phone] Private Gastro [facility] Dr Melendrez [phone], reports done in 2020 /alison/ Mildred Cervantes RN Registered Nurse (RN) Signed: 01/08/2024 14:54 Receipt Acknowledged By: 01/09/2024 12:11 /alison/ LALA DHALIWAL Advanced Facing Slitter 01/09/2024 ADDENDUM STATUS: COMPLETED Medical records requested /alison/ LALA DHALIWAL Advanced Facing Slitter Signed: 01/09/2024 12:12 MILDRED CERVANTES Dec 02, 2023 12:23 PM NURSING NONVA NOTE : LOCAL TITLE: OUTSIDE LAB RESULTS STANDARD TITLE: NURSING NONVA NOTE DATE OF NOTE: DEC 02, 2023@12:23 ENTRY DATE: JANUARY 14, 2024@12:23:39 AUTHOR: MILDRED CERVANTES EXP COSIGNER: URGENCY: STATUS: COMPLETED Outside Lab Values Date of Lab draw: Nov Location of lab tests: [facility] Notated Outside Lab Values: BMP: GLUCOSE 104 BUN 15 CREATININE 0.89 eGFR (IDMS) >60 K+ 142 CL 107 CO2 28 CBC: WBC 6.1 RBC 4.05L HGB 12.4L HCT 36.4L MCV 89.9 MCH 30.6 RDW 13.1 PLT 154L LIPID PANEL: CHOL 141 TRIGLY 75 HDL 66 LDL 60 LIVER PANEL: T. PROT 6.5 ALBUMIN 4.1 T. BILI 0.2 AST 12 ALT 14 ALK PHOS 99 MISCELLANEOUS LAB RESULTS: HAIC 6.7H CA 9.1 CREAT, URINE 15.57 MICROALBUMIN UR 10.0 ALB/CREAT RATIO 6.5H /alison/ Mildred N [place], RN Registered Nurse (RN) Signed: 01/14/2024 12:36 MILDRED CERVANTES [place]
--- OUTSIDE RECORDS SUMMARY | 2024-08-27 17:30 | XMS_ITS ---
Author Name [facility] [place] Organization [place] Address [address] [place] [address] Care Team Providers Care Instrument Mechanic Weapons System Name Role Phone ERNESTO BARROW Primary Care [...] [employer] MEDICARE ADVANTAGE MCR ([facility]) Aug 26, 2019 [id number] 490 Marcela GUERRERO PATIENT [facility] ([facility]) MEDICARE ADVANTAGE MCR ([facility]) Aug 26, 2019 [id number] 490 Marcela GUERRERO PATIENT Selected Encounter This section includes the information on record at [place] for the Encounter. Date/Time Encounter Type Encounter Description Reason Pro vider Source Sep 30, 2023 02:04 PM Outpatient Encounter PRIMARY CARE/MEDICINE [place] Encounter Template Text not used by [place] Plan of Treatment: Future Appointments (+ 6 [...] 20 appointments. The data comes from all [facility]. Appointment Date/Time Appointment Type Appointme nt Facility Name Oct 09, 2023 03:00 [facility] Active, Pending, and Scheduled Orders This section includes a listing of several types of active, pending, and scheduled orders, including clinic medications orders, diagnostic test orders, procedure orders and consult orders; where the start date of the order is 45 days before the date of the Encounter or 45 days after the date of theEncounter. The data comes from all [facility]. Test Date/Time Test Type Test Details Facility Name Sep 30, 2023 12:00 AM Laboratory - Chemi stry Order BASIC METABOLIC PANEL (fasting) BLOOD (SST-SERUM) [facility] Sep 30, 2023 12:00 AM Laboratory - Chemi stry Order LIPID PANEL FASTING BLOOD (SST-SERUM) [facility] Sep 30, 2023 12:00 AM Laboratory - Chemi stry Order LIVER FUNCTION BLOOD (SST-SERUM) [facility] Sep 30, 2023 12:00 AM Laboratory - Chemi stry Order CBC AND DIFF (AUTO) BLOOD (LAV-BLOOD) [facility] Sep 30, 2023 12:00 AM Laboratory - Chemi stry Order HEMOGLOBIN A1C PANEL BLOOD (LAV-BLOOD) [facility] Sep 30, 2023 12:00 AM Laboratory - Chemi stry Order TSH BLOOD (SST-SERUM) [facility] Sep 30, 2023 12:00 AM Laboratory - Chemi stry Order CALCIUM BLOOD (SST-SERUM) [facility] Sep 30, 2023 12:00 AM Laboratory - Chemi stry Order URIC ACID BLOOD (SST-SERUM) [facility] Sep 30, 2023 12:00 AM Laboratory - Chemi stry Order VITAMIN D (25-OH) BLOOD (SST-SERUM) [facility] Sep 30, 2023 12:00 AM Laboratory - Chemi stry Order URINALYSIS URINE [facility] Sep 30, 2023 12:00 AM Laboratory - Chemi stry Order MICROALBUMIN CREATININE RATIO PANEL URINE (RANDOM) [facility] Sep 30, 2023 12:00 AM Laboratory - Chemi stry Order FERRITIN BLOOD (SST-SERUM) [facility] Sep 30, 2023 12:00 AM Laboratory - Chemi stry Order PSA BLOOD (SST-SERUM) [facility] Social History: Smoking Status (Most current) and Tobacco Use (All prior to encounter date) This section includes the most current, and the historical, smoking and tobacco- related health factors from the [place] facility where the Encounter took place. Current Smoking Status This section includes the most current smoking, or tobacco-related health factor, from the [place] facility where the Encounter took place. Date/Time Current Smoking Status Comment Facil ity Jul 19, 2021 01:11 PM VA-TOBACCO FORMER USER [facility] Tobacco Use History This section includes a history of the smoking, or tobacco-related health factors, that were collected on or before the date of the Encounter. The data comes from the [place] facility where the Encounter took place. Date/Time Smoking Status/Tobacco Use Comment F acility Jul 19, 2021 01:11 PM [place]-TOBACCO QUIT 15 YRS OR MORE [facility] Advance Directives: All historical and current Section Date Range: From patient's date of to the date document was created. This section includes ALL of a patient's completed or amended [place] Advance and Rescinded Directives. The entries below indicate that a directive exists for the patient, but an actual copy is not included with this document. The data comes from all [place] facilities. Date Advance Directives Provider Source Sep 20, 2021 ADVANCE DIRECTIVE RADHA MADERA Jul 14, 2021 ADVANCE DIRECTIVE RADHA MADERA Encounter Notes: All associated encounter notes This section contains the clinical notes associated to the Encounter. Date/Time Encounter Note(s) Provider Source Sep 30, 2023 02:04 PM ADMINISTRATIVE NOT E: LOCAL TITLE: ADMINISTRATIVE NOTE STANDARD TITLE: ADMINISTRATIVE NOTE DATE OF NOTE: SEP 30, 2023@14:04 ENTRY DATE: SEP 30, 2023@14:04:12 AUTHOR: BLAINE DHALIWAL COSIGNER: URGENCY: STATUS: COMPLETED Overdue Appt scheduled for 10/09/2023 - Last seen February 2022 Last Labs December 2021 RN - Please enter Lab orders for this appt /alison/ LALA DHALIWAL Advanced Employment Adjudicator Signed: 09/30/2023 14:05 Receipt Acknowledged By: 09/30/2023 14:43 /es/ Ying Cervantes, RN Registered Nurse (RN) LALA DHALIWAL
--- OUTSIDE RECORDS SUMMARY | 2024-08-27 17:31 | XMS_ITS | Encounter Summary ---
Author Name [place] Address [address] [place] [address] Care Team Providers Care Chemical Preparer Name Role Phone ERNESTO BARROW Primary Care [...] [employer] MEDICARE ADVANTAGE MCR ([facility]) Aug 26, 2019 [id number] [phone] Marcela GUERRERO PATIENT [facility] ([facility]) MEDICARE ADVANTAGE MCR ([facility]) Aug 26, 2019 [id number] 490 Marcela GUERRERO PATIENT Selected Encounter This section includes the information on record at [place] for the Encounter. Date/Time Encounter Type Encounter Description Reason Pro vider Source January 07, 2024 12:00 AM Outpatient Encounter EVENT (HISTORICAL) IHE Encounter Template Text not used by [place] Plan of Treatment: Future Appointments (+ 6 [...] 20 appointments. The data comes from all [place] treatment facilities. Appointment Date/Time Appointment Type Appointme nt Facility Name Jun 30, 2024 11:00 AM AMBULATORY - MEDICINE [facility] Social History: Smoking Status (Most current) and Tobacco Use (All prior to encounter date) This section includes the most current, and the historical, smoking and tobacco- related health factors from the [place] facility where the Encounter took place. Current Smoking Status This section includes the most current smoking, or tobacco-related health factor, from the [place] facility where the Encounter took place. Date/Time Current Smoking Status Comment Facil ity Jul 19, 2021 01:11 PM VA-TOBACCO FORMER USER [facility] Tobacco Use History This section includes a history of the smoking, or tobacco-related health factors, that were collected on or before the date of the Encounter. The data comes from the [place] facility where the Encounter took place. Date/Time Smoking Status/Tobacco Use Comment F acility Jul 19, 2021 01:11 PM [place]-TOBACCO QUIT 15 YRS OR MORE [facility] Advance Directives: All historical and current Section Date Range: From patient's date of to the date document was created. This section includes ALL of a patient's completed or amended [place] Advance and Rescinded Directives. The entries below indicate that a directive exists for the patient, but an actual copy is not included with this document. The data comes from all [place] facilities. Date Advance Directives Provider Source Sep 20, 2021 ADVANCE DIRECTIVE RADHA MADERA Jul 14, 2021 ADVANCE DIRECTIVE RADHA MADERA Encounter Notes: All associated encounter notes This section contains the clinical notes associated to the Encounter. Date/Time Encounter Note(s) Provider Source January 07, 2024 12:00 AM NONVA NOTE: LOCAL TITLE: NON-VA OUTPATIENT NOTES STANDARD TITLE: NONVA NOTE DATE OF NOTE: JANUARY 07, 2024 ENTRY DATE: JANUARY 22, 2024@12:02:19 AUTHOR: SHANA CHRISTIANSON COSIGNER: URGENCY: STATUS: COMPLETED VistA Imaging - Scanned Document SCANNED DOCUMENT SIGNATURE NOT REQUIRED Electronically Filed: 01/22/2024 by: SHANA STILL CNTRL [facility]
--- OUTSIDE RECORDS SUMMARY | 2024-08-27 17:31 | XMS_ITS | Encounter Summary ---
Author Name [facility] [place] Organization [place] Address [address] [place] [address] Care Team Providers Care Electrode Turner And Finisher Name Role Phone ERNESTO BARROW Primary Care [...] [employer] CARE [employer]IANCE MEDICARE ADVANTAGE MCR ([facility]) Aug 26, 2019 [id number] 490 Marcela GUERRERO PATIENT [facility] ([facility]) MEDICARE ADVANTAGE [facility] ([facility]) Aug 26, 2019 [id number] 490 Marcela GUERRERO PATIENT Selected Encounter This section includes the information on record at [place] for the Encounter. Date/Time Encounter Type Encounter Description Reason Pro vider Source Dec 04, 2023 12:00 AM Outpatient Encounter EVENT (HISTORICAL) IHE Encounter Template Text not used by [place] Social History: Smoking Status (Most current) and Tobacco Use (All prior to encounter date) This section includes the most current, and the historical, smoking and tobacco- related health factors from the [place] facility where the Encounter took place. Current Smoking Status This section includes the most current smoking, or tobacco-related health factor, from the [place] facility where the Encounter took place. Date/Time Current Smoking Status Comment Jenny ity Jul 19, 2021 01:11 PM VA-TOBACCO FORMER USER [facility] Tobacco Use History This section includes a history of the smoking, or tobacco-related health factors, that were collected on or before the date of the Encounter. The data comes from the [place] facility where the Encounter took place. Date/Time Smoking Status/Tobacco Use Comment F acility Jul 19, 2021 01:11 PM [place]-TOBACCO QUIT 15 YRS OR MORE [facility] Advance Directives: All historical and current Section Date Range: From patient's date of to the date document was created. This section includes ALL of a patient's completed or amended [place] Advance and Rescinded Directives. The entries below indicate that a directive exists for the patient, but an actual copy is not included with this document. The data comes from all [place] facilities. Date Advance Directives Provider Source Sep 20, 2021 ADVANCE DIRECTIVE RADHA MADERA Jul 14, 2021 ADVANCE DIRECTIVE RADHA MADERA LARISSA Encounter Notes: All associated encounter notes This section contains the clinical notes associated to the Encounter. Date/Time Encounter Note(s) Provider Source Dec 04, 2023 12:00 AM NONVA NOTE: LOCAL TITLE: NON-VA OUTPATIENT NOTES STANDARD TITLE: NONVA NOTE DATE OF NOTE: DEC 04, 2023 ENTRY DATE: JANUARY 22, 2024@13:41:46 AUTHOR: AMBREEN GROSSMAN EXP COSIGNER: URGENCY: STATUS: COMPLETED VistA Imaging - Scanned Document SCANNED DOCUMENT SIGNATURE NOT REQUIRED Electronically Filed: 01/22/2024 by: AMBREEN GABRIEL [facility]
--- OUTSIDE RECORDS SUMMARY | 2024-08-27 17:31 | XMS_ITS | Encounter Summary ---
Author Name [facility] [place] [facility] [place] Organization [facility] [place] Address [address] [place] [address] Care Team Providers Care Technical Research Scientist Name Role Phone ERNESTO BARROW Primary [...] COMMONWEAL TH CARE ALLIANCE MEDICARE ADVANTAGE MCR ([facility]) Aug 26, 2019 [id number] [phone] Marcela GUERRERO PATIENT [facility] ([facility]) MEDICARE ADVANTAGE [facility] ([facility]) Aug 26, 2019 [id number] [phone] Marcela GUERRERO PATIENT Selected Encounter This section includes the information on record at [place] for the Encounter. Date/Time Encounter Type Encounter Description Reason Pro vider Source Dec 02, 2023 12:00 AM Outpatient Encounter EVENT (HISTORICAL) IHE Encounter Template Text not used by [place] Social History: Smoking Status (Most current) and Tobacco Use (All prior to encounter date) This section includes the most current, and the historical, smoking and tobacco- related health factors from the [place] facility where the Encounter took place. Current Smoking Status This section includes the most current smoking, or tobacco-related health factor, from the [place] facility where the Encounter took place. Date/Time Current Smoking Status Comment Facil ity Jul 19, 2021 01:11 PM VA-TOBACCO FORMER USER [facility] Tobacco Use History This section includes a history of the smoking, or tobacco-related health factors, that were collected on or before the date of the Encounter. The data comes from the [place] facility where the Encounter took place. Date/Time Smoking Status/Tobacco Use Comment F acility Jul 19, 2021 01:11 PM [place]-TOBACCO QUIT 15 YRS OR MORE [facility] Advance Directives: All historical and current Section Date Range: From patient's date of to the date document was created. This section includes ALL of a patient's completed or amended [place] Advance and Rescinded Directives. The entries below indicate that a directive exists for the patient, but an actual copy is not included with this document. The data comes from all [place] facilities. Date Advance Directives Provider Source Sep 20, 2021 ADVANCE DIRECTIVE RADHA MADERA Jul 14, 2021 ADVANCE DIRECTIVE RADHA MADERA
--- OUTSIDE RECORDS SUMMARY | 2024-08-27 17:31 | XMS_ITS | Encounter Summary ---
Author Name [facility] [place] Address [address] [place] [id number] Care Team Providers Care Systems Coordinator Name Role Phone ERNESTO BARROW Primary Care [...] TH CARE ALLIANCE MEDICARE ADVANTAGE MCR ([facility]) Aug 26, 2019 [id number] [phone] Marcela GUERRERO PATIENT [facility] ([facility]) MEDICARE ADVANTAGE MCR ([facility]) Aug 26, 2019 [id number] [phone] Marcela GUERRERO PATIENT Selected Encounter This [...]
--- OUTSIDE RECORDS SUMMARY | 2024-08-27 17:31 | XMS_ITS | Encounter Summary ---
Author Name [facility] [place] Organization [facility] [place] Address [address] [place] [address] Care Team Providers Care Skelp Processor Name Role Phone ERNESTO BARROW Primary Care [...] Hoyt COMMONWEAL TH CARE [employer]IANCE MEDICARE ADVANTAGE [facility] ([facility]) Aug 26, 2019 [id number] [phone] Marcela GUERRERO PATIENT [facility] ([facility]) MEDICARE ADVANTAGE [facility] ([facility]) Aug 26, 2019 [id number] [phone] Marcela GUERRERO PATIENT Selected Encounter This section includes the information on record at [place] for the Encounter. Date/Time Encounter Type Encounter Description Reason Pro vider Source Jul 01, 2024 07:35 AM Outpatient Encounter OPTOMETRY E Encounter Template Text not used by [place] [...] 19, 2021 01:11 PM VA-TOBACCO FORMER USER [facility] Tobacco Use History This section includes a history of the smoking, or tobacco-related health factors, that were collected on or before the date of the Encounter. The data comes from the [place] facility where the Encounter took place. Date/Time Smoking Status/Tobacco Use Comment F acility Jul 19, 2021 01:11 PM [place]-TOBACCO QUIT 15 YRS OR MORE [facility] Advance Directives: All historical and current Section [...] the Encounter. Date/Time Encounter Note(s) Provider Source Jul 01, 2024 07:35 AM CLERICAL NOTE: [facility] TITLE: APPOINTMENT NO SHOW STANDARD TITLE: CLERICAL NOTE DATE OF NOTE: JUL 01, 2024@07:35 ENTRY DATE: JUL 01, 2024@07:35:55 AUTHOR: NABIL AKERS EXP COSIGNER: URGENCY: STATUS: COMPLETED APPOINTMENT NO SHOW Has ADDENDA Patient Name: KAVON GUERRERO JR Patient SSN: [id number] Date and time of Appointment No show : 07/01/24 07:35 PATIENT PHONE - PHONE NUMBER [CELLULAR] - Patient's medical record was reviewed. Follow-up actions were determined and initiated: Please check/complete as applies: [X]Telephoned Directly [ ]Re-scheduled for next available appt [X]Sent a N0-show letter ( must call for appointment) [ ]Other (Emergent/Overbook, etc.): Additional Comments: Future Clinic Visits No data available /alison/ NABIL AKERS ADVANCED PHYSICAL SECURITY SPECIALIST Signed: 07/01/2024 07:36 07/15/2024 ADDENDUM STATUS: COMPLETED RTC, pid 06/21/2024 dispositioned due to veterans failure to respond to all contact efforts per department standards. /james AKERS ADVANCED PHYSICAL SECURITY SPECIALIST Signed: 07/15/2024 09:11 NABIL AKERS [place] [facility]
== END ==
LOC: HO.HUSH 16:17
PROVIDERS: PCP Internal Medicine; Visit Provider Nurse Practitioner Family
DX: N40.1 Benign prostatic hyperplasia with lower urinary tract symptoms (principal); N13.8 Other obstructive and reflux uropathy; N30.10 Interstitial cystitis (chronic) without hematuria; N32.81 Overactive bladder; N20.0 Calculus of kidney
CPT/HCPCS: 99213

== ENCOUNTER 2024-09-01 09:14 | Outpatient (REF) | payer OTHER, SELFPAY ==
--- NOTE | ~2024-09-01 | XR_ITS ---
CLINICAL HISTORY: M25.512 - Pain in left shoulder 2 view left shoulder Comparison: None Findings: Bones intact. No dislocations. No significant arthritic change. No erosions. No radiopaque foreign body. IMPRESSION: 1. No acute findings This document has been electronically signed by: Jorge Desai MD on 09/04/2024 18:50:05
--- OUTSIDE RECORDS SUMMARY | 2024-09-02 09:23 | XMS_ITS | Continuity of Care Document ---
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 It does not include entries that were removed or entered in error. Problem Status Onset Date Problem Type Date of Resolution Comments Source Abdominal pain Active Condition Jun 272020 Entered By: ERNESTO BARROW Comment: ABD Pain; Etio?Jul 19, 2021 Entered By: ERNESTO BARROW Comment: Sees Private [facility] Dr Melendrez [phone] [place] Benign hypertension Active Condition [facility] Benign prostatic hyperplasia Active Condition Jul 19, 2021 Entered By: ERNESTO BARROW Comment: Sees URO Every 3-4 Months for BPHJul 19, 2021 Entered By: ERNESTO BARROW Comment: Last Visit to Private URO was JUN 15:Jul 19, 2021 Entered By: ERNESTO BARROW Comment: Office Ultrasound Neg for Suspicious Lesions; No Heme on UA in JUN 15 [place] Depression Active Condition Jul 19 Entered By: ERNESTO BARROW Comment: Depression, Anxiety, PTSDJul 19, 2021 Entered By: ERNESTO BARROW Comment: Sees Private [facility] Dr. Suarez [phone] [facility]Jul [facility], 2021 Entered By: ERNESTO BARROW Comment: No SI / HINov 2020 Entered By: ERNESTO BARROW Comment: also Therapist Dr Green [facility] [phone] [place] Fibromyalgia Active Condition Jul 19, 2021 Entered By: ERNESTO BARROW Comment: Episodic Break-Throughs ; Severe when Sx Erupt; Affects Whole Body Jul 19, 2021 Entered By: ERNESTO BARROW Comment: Pain Management Dr So at [facility] [phone] [place] Gordon hematuria Active Condition Jul 19, 2021 Entered By: ERNESTO BARROW Comment: [facility] Sandhu [phone][facility] Entered By: ERNESTO BARROW Comment: Denies Renal, Bladder CA; No Lithiasis; +BPH as of JUL 16springBAM Hypercholesterolemia Active Condition Jul 19, 2021 Entered By: ERNESTO BARROW Comment: h/o Elevated Lipids; On Crestor; Allergic to Other Statins [place] Overactive bladder Active Condition J 2021 Entered By: ERNESTO BARROW Comment: Sees URO; Gets Suprapubic BOTOX Inj.'s [place] Sciatica Active Condition Jul 19 Entered By: ERNESTO BARROW Comment: Discopathy, L-Spine; Radiates Left Leg, Down to LEFT Ankle [place] Screening for malignant neoplasm of colon done Active Condition Jul 19, 2021 Entered By: ERNESTO BARROW Comment: Initial Screen Colonoscopy 2020 at [facility];Jul 19, 2021 Entered By: ERNESTO BARROW Comment: Neg CRC or Polyps; repeat 2030 (sooner prn) [place] Shoulder pain Active Condition Jan Entered By: ERNESTO BARROW Comment: Left Shldr and L Elbow Pains: X-Rays [place] DEC 15 Unremarkable [place] Type 2 diabetes mellitus Active Condition Jul 19, 2021 Entered By: ERNESTO BARROW Comment: +Diabet Neuropathy Feet; Sees Neuro Outside VANov 2020 Entered By: ERNESTO BARROW Comment: Private Neuro Dr Iris Quigley [facility] [phone] 2020 Entered By: ERNESTO BARROW Comment: on Carbamepazine, Lyrica, for NeuropathyJul 19, 2021 Entered By: ERNESTO BARROW Comment: Sees Private Ophth Once Yr (Month of Aug); no DR as of JUL 16 [place] Under care of doctor Active Condition Jul 19, 2021 Entered By: ERNESTO BARROW Comment: Private PCP Dr Melissa Quigley [facility] [phone] [place] Diagnosis: ICD-10-CM Z46.0 Encounter for fit/adjst of spectacles and contact lenses Active Diagnosis [facility] Diagnosis: ICD-10-CM E11.9 Type 2 diabetes mellitus without complications Active Diagnosis [facility] Medications Combined list of outpatient medications from Department of Defense and Veterans Affairs facilities.Medications provided include 1) outpatient medications from the last 15 months, and 2) patient-reported medications. Medication Details Route Status Patient Instructions Prescription Expires Prescription Number Last Dispense Date Ordering Provider Order Date Order Qty Source BACLOFEN 20MG TAB TAKE ONE TABLET BY MOUTH ONCE DAILY [facility] IELD BUPROPION HCL 300MG 24HR TAB,SA TAKE ONE TABLET BY MOUTH ONCE DAILY [facility] spring IELD CARBAMAZEPI NE 200MG TAB TAKE ONE TABLET BY MOUTH ONCE DAILY [facility] spring IELD CARBOXYMETH YLCELLULOSE NA 0.5% SOLN,OPH INSTILL 1 DROP INTO EACH EYE FOUR TIMES A DAY FOR DRY EYE OPHTHA LMIC 06/13/2024 [id number] ANGEL,M ICHELE 2022 30 [facility] CLONAZEPAM 0.5MG TAB TAKE ONE TABLET BY MOUTH BEDTIME [facility] spring IELD CYANOCOBALA MIN 100MCG TAB TAKE ONE TABLET BY MOUTH ONCE DAILY [facility] spring IELD DULOXETINE HCL 30MG CAP,EC TAKE 3 CAPSULES BY MOUTH ONCE DAILY [facility] spring IELD LISINOPRIL 2.5MG TAB TAKE ONE TABLET BY MOUTH ONCE DAILY [facility] spring IELD METFORMIN HCL 1000MG TAB TAKE ONE TABLET BY MOUTH TWICE DAILY [facility]AL [facility] 2021 [facility] IELD NAPROXEN 500MG TAB TAKE ONE TABLET BY MOUTH TWICE DAILY NEEDED ORAL [facility] 2021 [facility] IELD OTHER CAP/TAB TAKE LYRICA 300 MG BY MOUTH TWICE DAILY [facility] 2021 [facility] IELD QUETIAPINE FUMARATE 25MG TAB TAKE ONE TABLET BY MOUTH BEDTIME ORAL [facility] 2020 [facility] IELD ROSUVASTATI N CA 20MG TAB TAKE ONE-HALF TABLET BY MOUTH ONCE DAILY [facility] 2020 [facility] IELD SITAGLIPTIN PHOSPHATE 100MG TAB TAKE ONE TABLET BY MOUTH ONCE DAILY [facility] 2021 [facility] IELD TAMSULOSIN HCL 0.4MG CAP TAKE 1 CAPSULE BY MOUTH BEDTIME ORAL ACTIVE DANIEL BARROW 2020 [facility] IELD Allergies, Adverse Reactions, Alerts Combined list of allergies from Department of Defense and Veterans Affairs facilities. It does not include entries that were removed or entered in error. Substance Category Reaction Severity Reaction type Status Date Reported Comments Source No Known Allergies Drug allergy (disorder) active 2 [facility] [place] [place] Propensity to adverse reactions to drug (finding) Urticaria active 1 [facility] [place] [facility] [place] Propensity to adverse reactions to drug (finding) Low blood pressure, Muscle pain active 1 [facility] [place] [facility] Immunizations Combined list of available immunizations from the Department of Defense and Veterans Affairs facilities. Immunization Series Date Given Administered By Site Reaction Lot Number CVX Code Drug Drying And Winding Supervisor Status Comments Source INFLUENZA, UNSPECIFIED FORMULATION 2022 88 complet ed [facility] COVID-19 (MODERNA), MRNA, LNP-S, BIVALENT, PF, 50 MCG/0.5 ML OR 25MCG/0.25 ML DOSE 1 2022 229 complet ed [facility] COVID-19 (PFIZER), MRNA, LNP-S, PF, 30 MCG/0.3 ML DOSE 3 2021 208 complet ed [facility] PNEUMOCOCCAL POLYSACCHARID E PPV23 2021 33 complet ed [facility] IELD ZOSTER RECOMBINANT 2 2021 187 complet ed [facility] IELD TDAP 2020 115 complet ed [facility] ZOSTER RECOMBINANT 1 2020 187 complet ed [facility] INFLUENZA, UNSPECIFIED FORMULATION 2020 88 complet ed [facility] COVID-19 (PFIZER), MRNA, LNP-S, PF, 30 MCG/0.3 ML DOSE 2 2020 208 complet [facility] COVID-19 (PFIZER), MRNA, LNP-S, PF, 30 MCG/0.3 ML DOSE 1 2020 208 complet ed [facility] Encounters Combined list of: 1) Encounters from Department of Veterans Affairs facilities going back up to thelast 18 months. 2) Encounters from the Department of Defense facilities going back up to 280 months. Location Location Details Encounter Type Encounter Number Reason For Visit Attending Provider ADM Date DC Date Status Disposition Source [facility] Outpatient Encounter [id number] 03/30 [facility] Outpatient Encounter [id number] 04/30 [facility] EYE EXAM&TX ESTAB PT 1/>VST [id number] Diagnos is: ICD-10- CM E11.9 Type 2 diabete s mellitu s without complic ations< br/> COLEMAN ORTIZ 06/13 [facility] CPTR OPHTH DX IMG POST SEGMT [id number] Diagnos is: ICD-10- CM E11.9 Type 2 diabete s mellitu s without complic ations< br/> COLEMAN ORTIZ 06/13 [facility] Outpatient Encounter [id number] 06/13 [facility] FIT SPECTACLES MULTIFOCAL [id number] Diagnos is: ICD-10- CM Z46.0 Encount er for fit/adj st of spectac les and contact lenses< br/> MARLY FORRESTER 06/13 [facility] Outpatient Encounter [id number] 09/30 [facility] [place] Outpatient Encounter [id number] 10/09 [place] [facility] Outpatient Encounter [id number] 10/09 [facility] Out[facility] Encounter [id number] 10/10 [facility] Outpatient Encounter [id number] 12/01 [facility] Outpatient Encounter [id number] 12/01 [facility] Out[facility]counter [id number] 12/03 [facility] Out[facility] Encounter [id number] 12/23 [facility] Out[facility]counter [id number] 12/23 [facility] Out[facility] Encounter [id number] 01/06 [facility] Outpatient Encounter [id number] 01/09 [facility] Out[facility] Encounter [id number] 07/01 [facility] Social History Combined list of available smoking, tobacco, and other social history from Department of Defense and Veterans Affairs facilities. Social History Type Response Date Comment Sourc e Tobacco smoking status NHIS [facility]-TOBACCO FORMER USER 10/09/2023 [place] History of tobacco use ID-TOBACCO QUIT 15 YRS OR MORE 10/09/2023 [place] History of tobacco use ID-TOBACCO FORMER USER [...]
== END 2024-09-01 09:15 | disposition home or self-care (01) ==
LOC: HO.HOSX 09:14
PROVIDERS: Visit Provider Orthopaedic Surgery
DX: M25.512 Pain in left shoulder (principal); M75.42 Impingement syndrome of left shoulder
CPT/HCPCS: 20610; 73030; 99202; J1010; J2003

== ENCOUNTER 2024-09-01 14:43 | Outpatient (AMB) | payer OTHER, SELFPAY ==
--- NOTE | 2024-09-01 14:54 | A.OFFVIS_ITS ---
Vital Signs 09/01/24 14:58 Height 6 ft Weight 168 lb BMI 22.8 Intake Visit Reasons: Left shoulder pain Intake Note: Linus is a 54 year old left hand dominant male who presents with complaints of progressively worsening left shoulder pain. He describes his pain as sharp in nature. His pain has gotten worse over the last few years in spite of continued non operative treatments. He has done physical therapy exercises which aggravated his pain. He has also tried Tylenol and anti-inflammatory medicines which gave him minimal relief. Reports weakness when lifting his left hand above shoulder height. Allergies linagliptin [From TRADJENTA] Allergy (Intermediate, Verified 09/01/24 14:54) RASH Dyqxjfm-KZU-JoG Reductase Inhibitor [KORWLUQ-VAU-LGY REDUCTASE INHIBITOR] Allergy (Intermediate, Verified 09/01/24 14:54) ITCHY,SKIN BREAKDOWN Medication List - Last Reconciled 09/02/24 by Flaco Andrade MD baclofen 20 mg PO BID blood sugar diagnostic As directed blood-glucose meter As directed bupropion HCl XL 300 mg PO QAM carbamazepine ER 400 mg PO DAILY cyanocobalamin (vitamin B-12) 1,000 mcg PO DAILY cyclobenzaprine 5 mg PO TID PRN docusate sodium 200 mg (2 x 100 mg) PO BEDTIME duloxetine 60 mg PO DAILY duloxetine 30 mg PO DAILY finasteride 5 mg PO DAILY ibuprofen 600 mg PO Q6H PRN lamotrigine 200 mg PO BID lancets (FreeStyle Lancets) As directed lisinopril 2.5 mg PO DAILY metformin ER 500 mg PO ONCE naproxen 500 mg PO BID prazosin 2 mg PO BEDTIME pregabalin 300 mg PO BID psyllium husk (Metamucil) 1 tbsp PO DAILY quetiapine 50 - 100 mg PO BEDTIME tamsulosin 0.4 mg PO BEDTIME 90 days PFSH Medical History History of COVID-19 Low back pain Peripheral neuropathy Arthritis Unintentional weight loss PTSD (post-traumatic stress disorder) Hematuria Left lower quadrant pain Urinary frequency Type 2 diabetes mellitus with unspecified complications Other obstructive and reflux uropathy Benign prostatic hyperplasia with lower urinary tract symptoms Urgency incontinence Hypercalcemia Surgical History S/P fusion of sacroiliac joint History of esophagogastroduodenoscopy (EGD) Anal fissure History of surgery Hx of cystoscopy Hx of cardiac catheterization History of prostate surgery Hx of cystoscopy Hx of cystoscopy H/O colonoscopy Social History (Updated 09/01/24 @ 15:04 by CHRYSTAL Rutledge) Are you a primary foster care worker to a significant other at home: No Do you presently have visiting 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 or other home 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: 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) Alcohol intake: never Patient Tobacco Use Status: Former Tobacco user Tobacco use type: Cigarette Second Hand Smoke Exposure: No Substance Use Type: Marijuana service: Yes Current occupational status: unemployed Current occupation: left handed Physical Exam Vital Signs: BMI result Body Mass Index 22.8 Const Other: Well-nourished well-developed very friendly male awake alert and oriented x3 in no acute distress Extrem Other: Bilateral upper extremity examination shows good capillary refill, no skin lesions noted, normal sensation light touch Left shoulder examination shows decreased range of motion when compared to his right shoulder, 4+ out of 5 strength with supraspinatus testing, positive impingement signs, tenderness over his acromioclavicular joint, no instability Office Procedures AMB Joint Injection/Aspiration Joint Injection/Aspiration Primary Site: left shoulder Prep: site was prepped using aseptic technique Injected: 40 mg of, DepoMedrol and 1% plain lidocaine Procedure: The patient tolerated the procedure well Coding 57823 - Large joint Procedure code (CPT) selection complete Results Reviewed Results Reviewed: X-rays of the patient's left shoulder show severe acromioclavicular joint narrowing, a type 2 acromion, no acute bony abnormalities Assessment & Plan Assessment & Plan (1) Impingement syndrome of left shoulder: Code(s): M75.42 - Impingement syndrome of left shoulder Category: Medical (2) Left shoulder pain: Code(s): M25.512 - Pain in left shoulder Category: Medical Plan Mr. Angeles presents with left shoulder pain due to impingement syndrome and possible rotator cuff tearing. The risks and benefits of a left shoulder cortisone injection were discussed at length with the patient. The patient wished to proceed. He tolerated the injection well. He will continue with his home stretching program. He will contact me prior to his follow-up appointment in 3 months should any questions or concerns arise. If his symptoms do not improve I will order an MRI of his left shoulder to further evaluate the status of his rotator cuff tendons. Feel free to call me at any time should questions regarding his orthopedic management arise. Thank you very much for asking me to see this very friendly gentleman. I spent 21 minutes in reviewing the patient's records and imaging studies, seeing the patient and documenting in the medical record. Orders: Orders XR shoulder LT min 2V 09/01/24 M25.512 - Pain in left shoulder AMB Joint Injection/Aspiration 09/01/24 M75.42 - Impingement syndrome of left shoulder Coding Level of Care Code New Pt Level 3 (75702) Complex EM visit Add On G2211 Diagnoses Impingement syndrome of left shoulder M75.42 Left shoulder pain M25.512 CPT Codes Coding - 56781 Large joint: 65951 - Large joint ([id number])
[2024-09-01 14:58] VITALS: BMI 22.8
--- OUTSIDE RECORDS SUMMARY | 2024-09-01 18:33 | XMS_ITS | Continuity of Care Document ---
Author Name [facility] Organization [facility] Care Team Providers Care Investigations Manager Name Role Phone [facility] Unavailable Unavailable Problems Combined list of problems from Department of Defense and Veterans Affairs facilities. It does not include entries that were removed or entered in error. Problem Status Onset Date Problem Type Date of Resolution Comments Source Abdominal pain Active Condition Jun 272020 Entered By: ERNESTO BARROW Comment: ABD Pain; Etio?Jul 19, 2021 Entered By: ERNESTO BARROW Comment: Sees Private [facility] Dr Melendrez [phone] [place] Benign hypertension Active Condition [facility] Benign prostatic hyperplasia Active Condition Jul 19, 2021 Entered By: ERNESTO BARROW Comment: Sees URO Every 3-4 Months for BPHJul 19, 2021 Entered By: ERNESTO BARROW Comment: Last Visit to Private [facility] was JUN 15:Jul 19, 2021 Entered By: ERNESTO BARROW Comment: Office Ultrasound Neg for Suspicious Lesions; No Heme on UA in JUN 15 [place] Depression Active Condition Jul 19 Entered By: ERNESTO BARROW Comment: Depression, Anxiety, PTSDJul 19, 2021 Entered By: ERNESTO BARROW Comment: Sees Private [facility] Dr. Suarez [phone] at [facility] 2021 Entered By: ERNESTO BARROW Comment: No SI / HINov 2020 Entered By: ERNESTO BARROW Comment: also Therapist Dr Green [facility] [phone] [place] Fibromyalgia Active Condition Jul 19, 2021 Entered By: ERNESTO BARROW Comment: Episodic Break-Throughs ; Severe when Sx Erupt; Affects Whole Body Jul 19, 2021 Entered By: ERNESTO BARROW Comment: Pain Management Dr So at [facility] [phone] [place] Gordon hematuria Active Condition Jul 19, 2021 Entered By: ERNESTO BARROW Comment: Private [facility] Sandhu [phone][facility] Entered By: ERNESTO BARROW Comment: Denies Renal, Bladder CA; No Lithiasis; +BPH as of JUL 16springBAM Hypercholesterolemia Active Condition Jul 19, 2021 Entered By: ERNESTO BARROW Comment: h/o Elevated Lipids; On Crestor; Allergic to Other Statins [place] Overactive bladder Active Condition J 2021 Entered By: ERNESTO BARROW Comment: Sees URO; Gets Suprapubic BOTOX Inj.'s [place] Sciatica Active Condition Jul 19 Entered By: ERNESTO BARROW Comment: Discopathy, L-Spine; Radiates Left Leg, Down to LEFT Ankle [place] Screening for malignant neoplasm of colon done Active Condition Jul 19, 2021 Entered By: ERNESTO BARROW Comment: Initial Screen Colonoscopy 2020 at [facility];Jul 19, 2021 Entered By: ERNESTO BARROW Comment: Neg CRC or Polyps; repeat 2030 (sooner prn) [place] Shoulder pain Active Condition Jan Entered By: ERNETSO BARROW Comment: Left Shldr and L Elbow Pains: X-Rays [place] DEC 15 Unremarkable [place] Type 2 diabetes mellitus Active Condition Jul 19, 2021 Entered By: ERNESTO BARROW Comment: +Diabet Neuropathy Feet; Sees Neuro Outside [facility]ov 2020 Entered By: ERNESTO BARROW Comment: Private Neuro Dr Iris Quigley [facility] [phone] 2020 Entered By: ERNESTO BRAROW Comment: on Carbamepazine, Lyrica, for NeuropathyJul 19, 2021 Entered By: ERNESTO BARROW Comment: Sees Private Ophth Once Yr (Month of Aug); no DR as of JUL 16 [place] Under care of doctor Active Condition Jul 19, 2021 Entered By: ERNESTO BARROW Comment: Private PCP Dr Melissa Quigley [facility] [phone] [place] Diagnosis: ICD-10-CM Z46.0 Encounter for fit/adjst of spectacles and contact lenses Active Diagnosis [facility] Diagnosis: ICD-10-CM E11.9 Type 2 diabetes mellitus without complications Active Diagnosis [facility] Medications Combined list of outpatient medications from Department of Defense and Veterans Affairs facilities.Medications provided include 1) outpatient medications from the last 15 months, and 2) patient-reported medications. Medication Details Route Status Patient Instructions Prescription Expires Prescription Number Last Dispense Date Ordering Provider Order Date Order Qty Source BACLOFEN 20MG TAB TAKE ONE TABLET BY MOUTH ONCE DAILY [facility] BUPROPION HCL 300MG 24HR TAB,SA TAKE ONE TABLET BY MOUTH ONCE DAILY [facility] CARBAMAZEPI NE 200MG TAB TAKE ONE TABLET BY MOUTH ONCE DAILY [facility] CARBOXYMETH YLCELLULOSE NA 0.5% SOLN,OPH INSTILL 1 DROP INTO EACH EYE FOUR TIMES A DAY FOR DRY EYE OPHTHA LMIC 06/13/2024 [id number] ANGEL,M ICHELE 2022 30 [facility] CLONAZEPAM 0.5MG TAB TAKE ONE TABLET BY MOUTH BEDTIME [facility] CYANOCOBALA MIN 100MCG TAB TAKE ONE TABLET BY MOUTH ONCE DAILY [facility] IELD DULOXETINE HCL 30MG CAP,EC TAKE 3 CAPSULES BY MOUTH ONCE DAILY [facility] LISINOPRIL 2.5MG TAB TAKE ONE TABLET BY MOUTH ONCE DAILY [facility] METFORMIN HCL 1000MG TAB TAKE ONE TABLET BY MOUTH TWICE DAILY [facility] [address] [facility] [place] IELD NAPROXEN 500MG TAB TAKE ONE TABLET BY MOUTH TWICE DAILY NEEDED ORAL [facility] [address] [facility] ([place] [place] IELD OTHER CAP/TAB TAKE LYRICA 300 MG BY MOUTH TWICE DAILY [facility] [address] [facility] [place] IELD QUETIAPINE FUMARATE 25MG TAB TAKE ONE TABLET BY MOUTH BEDTIME ORAL [facility] [address] [facility] ([place] [place] IELD ROSUVASTATI N CA 20MG TAB TAKE ONE-HALF TABLET BY MOUTH ONCE DAILY [facility] [address] [facility] [place] IELD SITAGLIPTIN PHOSPHATE 100MG TAB TAKE ONE TABLET BY MOUTH ONCE DAILY [facility] [address] [facility] [place] IELD TAMSULOSIN HCL 0.4MG CAP TAKE 1 CAPSULE BY MOUTH BEDTIME ORAL ACTIVE DANIEL BARROW [address] [facility] ([place] [place] IELD Allergies, Adverse Reactions, Alerts Combined list of allergies from Department of Defense and Veterans Affairs facilities. It does not include entries that were removed or entered in error. Substance Category Reaction Severity Reaction type Status Date Reported Comments Source No Known Allergies Drug allergy (disorder) active 2 [facility] Propensity to adverse reactions to drug (finding) Urticaria active 1 [facility] [facility] ZOCOR Propensity to adverse reactions to drug (finding) Low blood pressure, Muscle pain active 1 [facility] [place] [facility] Immunizations Combined list of available immunizations from the Department of Defense and Veterans Affairs facilities. Immunization Series Date Given Administered By Site Reaction Lot Number CVX Code Drug Sas Analyst Status Comments Source INFLUENZA, UNSPECIFIED FORMULATION 2022 88 complet ed [facility] COVID-19 (MODERNA), MRNA, LNP-S, BIVALENT, PF, 50 MCG/0.5 ML OR 25MCG/0.25 ML DOSE 1 2022 229 complet ed [facility] COVID-19 (PFIZER), MRNA, LNP-S, PF, 30 MCG/0.3 ML DOSE 3 2021 208 complet ed [facility] PNEUMOCOCCAL POLYSACCHARID E PPV23 [address] [facility] [place] IELD ZOSTER RECOMBINANT [address] [facility] [place] IELD TDAP 2020 115 complet ed [facility] ZOSTER RECOMBINANT 1 2020 187 complet ed [facility] INFLUENZA, UNSPECIFIED FORMULATION 2020 88 complet ed [facility] COVID-19 (PFIZER), MRNA, LNP-S, PF, 30 MCG/0.3 ML DOSE 2 2020 208 complet [facility]ated [facility] COVID-19 (PFIZER), MRNA, LNP-S, PF, 30 MCG/0.3 ML DOSE 1 2020 208 complet ed [facility] Encounters Combined list of: 1) Encounters from Department of Veterans Affairs facilities going back up to thelast 18 months. 2) Encounters from the Department of Defense facilities going back up to 280 months. Location Location Details Encounter Type Encounter Number Reason For Visit Attending Provider ADM Date DC Date Status Disposition Source [facility] Outpatient Encounter [id number] 03/30 [facility] Outpatient Encounter [id number] 04/30 [facility] EYE EXAM&TX ESTAB PT 1/>VST [id number] Diagnos is: ICD-10- CM E11.9 Type 2 diabete s mellitu s without complic ations< br/> COLEMAN ORTIZ 06/13 [facility] CPTR OPHTH DX IMG POST SEGMT [id number] Diagnos is: ICD-10- CM E11.9 Type 2 diabete s mellitu s without complic ations< br/> COLEMAN ORTIZ 06/13 [facility] Outpatient Encounter [id number] 06/13 [facility] FIT SPECTACLES MULTIFOCAL [id number] Diagnos is: ICD-10- CM Z46.0 Encount er for fit/adj st of spectac les and contact lenses< br/> MARLY FORRESTER 06/13 [facility] Outpatient Encounter [id number] 09/30 [facility] [place] Outpatient Encounter [id number] 10/09 [place] [facility] Outpatient Encounter [id number] 10/09 [facility] Outpatient Encounter [id number] 10/10 [facility] Outpatient Encounter [id number] 12/01 [facility] Out[facility] Encounter [id number] 12/01 [facility] Out[facility] Encounter [id number] 12/03 [facility] Out[facility]counter [id number] 12/23 [facility] Out[facility] Encounter [id number] 12/23 [facility] Outpatient Encounter [id number] 01/06 [facility] Out[facility] Encounter [id number] 01/09 [facility] Outpatient Encounter [id number] 07/01 [facility] Social History Combined list of available smoking, tobacco, and other social history from Department of Defense and Veterans Affairs facilities. Social History Type Response Date Comment Sourc e Tobacco smoking status NHIS VA-TOBACCO FORMER USER 10/09/2023 [place] History of tobacco use ID-TOBACCO QUIT 15 YRS OR MORE 10/09/2023 [place] History of tobacco use ID-TOBACCO FORMER USER 07/19/2021 [facility] This section is an empty social history section. DoD Advance Directives List of completed, amended, or rescinded Advance Directives on record at Department of Veterans Affairs facilities. An actual copy of the Directive is not included. Date Advance Directive Provider Source 09/20/2021 ADVANCE DIRECTIVE RADHA MADERA 07/14/2021 ADVANCE DIRECTIVE RADHA MADERA
== END 2024-09-01 15:18 | disposition home or self-care (01) ==
PROVIDERS: PCP Internal Medicine; Visit Provider Orthopaedic Surgery
DX: M75.42 Impingement syndrome of left shoulder (principal); M25.512 Pain in left shoulder
CPT/HCPCS: 20610; 99203

== ENCOUNTER → 2024-09-01 14:47 | Outpatient (BNV) | payer OTHER, SELFPAY | PROVIDERS: Visit Provider Radiology Diagnostic Radiology | DX: M25.512 Pain in left shoulder (principal) | CPT/HCPCS: 73030 ==

== ENCOUNTER 2024-09-29 06:10 | Outpatient (REF) | payer OTHER, SELFPAY ==
--- NOTE | ~2024-09-29 | FL_ITS ---
EXAMINATION: FL GUIDANCE ONLY HISTORY: M53.3 - Sacrococcygeal disorders, not elsewhere classified COMPARISON: None available. TECHNIQUE: Fluoroscopy time: 0.2 minutes. Cumulative Dose: 2.08 mGy. DAP: 0.362 mGym2 Images: 2. FINDINGS: Images demonstrate a needle directed toward the L3 vertebral body from a posterior approach. FL/FL guidance in treatment room IMPRESSION: Fluoroscopy during procedure. Please see procedure report for additional information. Electronically signed by: Nehemias Quiñonez MD 09/29/2024 12:27 PM [facility]
--- OUTSIDE RECORDS SUMMARY | 2024-09-29 06:12 | XMS_ITS | Continuity of Care Document ---
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 It does not include entries that were removed or entered in error. Problem Status Onset Date Problem Type Date of Resolution Comments Source Abdominal pain Active Condition Jun 272020 Entered By: ERNESTO BARROW Comment: ABD Pain; Etio?Jul 19, 2021 Entered By: ERNESTO BARROW Comment: Sees Private [facility] Dr Melendrez [phone] [place] Benign hypertension Active Condition SP [facility] Benign prostatic hyperplasia Active Condition Jul 19, 2021 Entered By: ERNESTO BARROW Comment: Sees URO Every 3-4 Months for BPHJul 19, 2021 Entered By: ERNESTO BARROW Comment: Last Visit to Private URO was JUN 15:Jul 19, 2021 Entered By: ERNESTO BARROW Comment: Office Ultrasound Neg for Suspicious Lesions; No Heme on UA in JUN 15 [place] Depression Active Condition Jul 19 Entered By: ERNESTO BARROW Comment: Depression, Anxiety, PTSDJul 19, 2021 Entered By: ERNESTO BARROW Comment: Sees Private [facility] Dr. Suarez [phone] at [facility]Jul 19, 2021 Entered By: ERNESTO BARROW Comment: No SI / HINov 2020 Entered By: ERNESTO BARROW Comment: also Therapist Dr Green [facility] [phone] [place] Fibromyalgia Active Condition Jul 19, 2021 Entered By: ERNESTO BARROW Comment: Episodic Break-Throughs ; Severe when Sx Erupt; Affects Whole Body Jul 19, 2021 Entered By: ERNESTO BARROW Comment: Pain Management Dr So at [facility] [phone] [place] hematuria Active Condition Jul 19, 2021 Entered By: ERNESTO BARROW Comment: Private URO is a Dr Sandhu [phone][facility] [place] Entered By: ERNESTO BARROW Comment: Denies Renal, Bladder CA; No Lithiasis; +BPH as of JUL 16springBAM Hypercholesterolemia Active Condition Jul 19, 2021 Entered By: ERNESTO BARROW Comment: h/o Elevated Lipids; On Crestor; Allergic to Other Statins [place] Overactive bladder Active Condition J 2021 Entered By: ERNESTO BARROW Comment: Sees URO; Gets Suprapubic BOTOX Inj.'s [place] Sciatica Active Condition Jul 19 Entered By: ERNESTO BARROW Comment: Discopathy, L-Spine; Radiates Left Leg, Down to LEFT Ankle [place] Screening for malignant neoplasm of colon done Active Condition Jul 19, 2021 Entered By: ERNESTO BARROW Comment: Initial Screen Colonoscopy 2020 at [facility];Jul 19, 2021 Entered By: ERNESTO BARROW Comment: Neg CRC or Polyps; repeat 2030 (sooner prn) [place] Shoulder pain Active Condition Jan Entered By: ERNESTO BARROW Comment: Left Shldr and L Elbow Pains: X-Rays [place] DEC 15 Unremarkable [place] Type 2 diabetes mellitus Active Condition Jul 19, 2021 Entered By: ERNESTO BARROW Comment: +Diabet Neuropathy Feet; Sees Neuro Outside VANov 2020 Entered By: ERNESTO BARROW Comment: Private Neuro Dr Iris Quigley [facility] [phone] 2020 Entered By: ERNESTO BARROW Comment: on Carbamepazine, Lyrica, for NeuropathyJul 19, 2021 Entered By: ERNESTO BARROW Comment: Sees Private Ophth Once Yr (Month of Aug); no DR as of JUL 16 [place] Under care of doctor Active Condition Jul 19, 2021 Entered By: ERNESTO BARROW Comment: Private PCP Dr Melissa Quigley [facility] [phone] [place] Diagnosis: ICD-10-CM Z46.0 Encounter for fit/adjst of spectacles and contact lenses Active Diagnosis [facility] Diagnosis: ICD-10-CM E11.9 Type 2 diabetes mellitus without complications Active Diagnosis [facility] Medications Combined list of outpatient medications from Department of Defense and Veterans Affairs facilities.Medications provided include 1) outpatient medications from the last 15 months, and 2) patient-reported medications. Medication Details Route Status Patient Instructions Prescription Expires Prescription Number Last Dispense Date Ordering Provider Order Date Order Qty Source BACLOFEN 20MG TAB TAKE ONE TABLET BY MOUTH ONCE DAILY [facility] IELD BUPROPION HCL 300MG 24HR TAB,SA TAKE ONE TABLET BY MOUTH ONCE DAILY [facility] spring IELD CARBAMAZEPI NE 200MG TAB TAKE ONE TABLET BY MOUTH ONCE DAILY [facility] spring IELD CARBOXYMETH YLCELLULOSE NA 0.5% SOLN,OPH INSTILL 1 DROP INTO EACH EYE FOUR TIMES A DAY FOR DRY EYE OPHTHA LMIC 06/13/2024 [id number] 3 ANGEL,M ICHELE 2022 30 [facility] CLONAZEPAM 0.5MG TAB TAKE ONE TABLET BY MOUTH BEDTIME [facility] spring IELD CYANOCOBALA MIN 100MCG TAB TAKE ONE TABLET BY MOUTH ONCE DAILY [facility] spring IELD DULOXETINE HCL 30MG CAP,EC TAKE 3 CAPSULES BY MOUTH ONCE DAILY [facility] spring IELD LISINOPRIL 2.5MG TAB TAKE ONE TABLET BY MOUTH ONCE DAILY [facility] spring IELD METFORMIN HCL 1000MG TAB TAKE ONE TABLET BY MOUTH TWICE DAILY [facility] 2021 [facility] IELD NAPROXEN 500MG TAB TAKE ONE TABLET BY MOUTH TWICE DAILY NEEDED ORAL [facility] 2021 [facility] IELD OTHER CAP/TAB TAKE LYRICA 300 MG BY MOUTH TWICE DAILY [facility] 2021 [facility] IELD QUETIAPINE FUMARATE 25MG TAB TAKE ONE TABLET BY MOUTH BEDTIME ORAL [facility] 2020 [facility] IELD ROSUVASTATI N [place] 20MG TAB TAKE ONE-HALF TABLET BY MOUTH ONCE DAILY [facility] 2020 [facility] IELD SITAGLIPTIN PHOSPHATE 100MG TAB TAKE ONE TABLET BY MOUTH ONCE DAILY [facility] 2021 [facility] IELD TAMSULOSIN HCL 0.4MG CAP TAKE 1 CAPSULE BY MOUTH BEDTIME ORAL ACTIVE DANIEL BARROW 2020 [facility] IELD Allergies, Adverse Reactions, Alerts Combined list of allergies from Department of Defense and Veterans Affairs facilities. It does not include entries that were removed or entered in error. Substance Category Reaction Severity Reaction type Status Date Reported Comments Source No Known Allergies Drug allergy (disorder) active 2 [facility] [place] Propensity to adverse reactions to drug (finding) Urticaria active 1 [facility] [place] [facility] [place] Propensity to adverse reactions to drug (finding) Low blood pressure, Muscle pain active 1 [facility] [place] [facility] Immunizations Combined list of available immunizations from the Department of Defense and Veterans Affairs facilities. Immunization Series Date Given Administered By Site Reaction Lot Number CVX Code Drug Incident Response Manager Status Comments Source INFLUENZA, UNSPECIFIED FORMULATION 2022 88 complet ed [facility] COVID-19 (MODERNA), MRNA, LNP-S, BIVALENT, PF, 50 MCG/0.5 ML OR 25MCG/0.25 ML DOSE 1 2022 229 complet ed [facility] COVID-19 (PFIZER), MRNA, LNP-S, PF, 30 MCG/0.3 ML DOSE 3 [address] [facility]INICS PNEUMOCOCCAL POLYSACCHARID E PPV23 2021 33 complet ed [facility] IELD ZOSTER RECOMBINANT 2 2021 187 complet ed [facility] IELD TDAP 2020 115 complet ed [facility] ZOSTER RECOMBINANT 1 2020 187 complet ed [facility] INFLUENZA, UNSPECIFIED FORMULATION 2020 88 complet ed [facility] COVID-19 (PFIZER), MRNA, LNP-S, PF, 30 MCG/0.3 ML DOSE 2 2020 208 complet [facility] CLINICS COVID-19 (PFIZER), MRNA, LNP-S, PF, 30 MCG/0.3 ML DOSE 1 [address] [facility] Encounters Combined list [...] [facility] En[facility] [id number] 03/30 [facility] Out[facility] Encounter [id number] 04/30 [facility] EYE EXAM&TX ESTAB PT 1/>VST [id number] Diagnos is: ICD-10- CM E11.9 Type 2 diabete s mellitu s without complic ations< br/> COLEMAN ORTIZ 06/13 [facility] CPTR OPHTH DX IMG POST SEGMT [id number] Diagnos is: ICD-10- CM E11.9 Type 2 diabete s mellitu s without complic ations< br/> COLEMAN ORTIZ 06/13 [facility] Out[facility] En[facility] [id number] 06/13 [facility] FIT SPECTACLES MULTIFOCAL [id number] Diagnos is: ICD-10- CM Z46.0 Encount er for fit/adj st of spectac les and contact lenses< br/> MARLY FORRESTER 06/13 [facility] Outpatient Encounter [id number] 09/30 [facility] [place] Outpatient Encounter [id number] 10/09 [place] [facility] Out[facility] Encounter [id number] 10/09 [facility] Encounter [id number] 10/10 [facility] Encounter [id number] 12/01 [facility] [id number] 12/01 [facility] Out[facility] Encounter [id number] 12/03 [facility] Out[facility] Encounter [id number] 12/23 [facility] Out[facility] Encounter [id number] 12/23 [facility] Out[facility] Encounter [id number] 01/06 [facility] En[facility] [id number] 01/09 [facility] Out[facility] Encounter [id number] 07/01 [facility] Social History Combined list of available smoking, tobacco, and other social history from Department of Defense and Veterans Affairs facilities. Social History Type Response Date Comment Sourc e Tobacco smoking status NHIS VA-TOBACCO FORMER USER 10/09/2023 [place] History of tobacco use MS-TOBACCO QUIT 15 YRS OR MORE 10/09/2023 [place] History of tobacco use MS-TOBACCO FORMER USER 07/19/2021 [facility] This section is an empty social history section. DoD Advance Directives List of completed, amended, or rescinded Advance Directives on record at Department of Veterans Affairs facilities. An actual copy of the Directive is not included. Date Advance Directive Provider Source 09/20/2021 ADVANCE DIRECTIVE RADHA MADERA 07/14/2021 ADVANCE DIRECTIVE RADHA MADERA
== END 2024-09-29 06:11 | disposition home or self-care (01) ==
LOC: CF 06:10
PROVIDERS: Visit Provider Anesthesiology
DX: M53.3 Sacrococcygeal disorders, not elsewhere classified (principal); G89.4 Chronic pain syndrome; Z98.1 Arthrodesis status
CPT/HCPCS: 62323; J0665; J2003; Q9967

== ENCOUNTER 2024-09-29 07:58 | Outpatient (AMB) | payer OTHER, SELFPAY ==
--- OUTSIDE RECORDS SUMMARY | 2024-09-29 08:01 | XMS_ITS | Continuity of Care Document ---
Author Name [facility] Organization [facility] Care Team Providers Care Personal Care Attendant Name Role Phone [facility] Unavailable Unavailable Problems Combined list of problems from Department of Defense and Veterans Affairs facilities. It does not include entries that were removed or entered in error. Problem Status Onset Date Problem Type Date of Resolution Comments Source Abdominal pain Active Condition Jun 272020 Entered By: ERNESTO BARROW Comment: ABD Pain; Etio?Jul 19, 2021 Entered By: ERNESTO BARROW Comment: Sees Private [facility] Dr Melendrez [phone] [place] Benign hypertension Active Condition SP [facility] Benign prostatic hyperplasia Active Condition Jul 19, 2021 Entered By: ERNESTO BARROW Comment: Sees URO Every 3-4 Months for BPHJul 19, 2021 Entered By: ERNESTO BARROW Comment: Last Visit to Private URO was JUN 15:Jul 19, 2021 Entered By: ERNESTO BARROW Comment: Office Ultrasound Neg for Suspicious Lesions; No Heme on UA in JUN 15 [place] Depression Active Condition Jul 19 Entered By: ERNESTO BARROW Comment: Depression, Anxiety, PTSDJul 19, 2021 Entered By: ERNESTO BARROW Comment: Sees Private [facility] Dr. Suarez [phone] at [facility] 2021 Entered By: ERNESTO BARROW Comment: No SI / HINov 2020 Entered By: ERNESTO BARROW Comment: also Therapist Dr Grene [facility] [phone] [place] Fibromyalgia Active Condition Jul 19, 2021 Entered By: ERNESTO BARROW Comment: Episodic Break-Throughs ; Severe when Sx Erupt; Affects Whole Body Jul 19, 2021 Entered By: ERNESTO BARROW Comment: Pain Management [facility] [place] [facility] [phone] [place] Gordon hematuria Active Condition Jul 19, 2021 Entered By: ERNESTO BARROW Comment: Private URO is a Dr Sandhu [phone][facility] Entered By: ERNESTO BARROW Comment: Denies Renal, Bladder CA; No Lithiasis; +BPH as of JUL 16[place]AM Hypercholesterolemia Active Condition Jul 19, 2021 Entered By: ERNESTO BARROW Comment: h/o Elevated Lipids; On Crestor; Allergic to Other Statins [place] Overactive bladder Active Condition J 2021 Entered By: ERNESTO BARROW Comment: Sees URO; Gets Suprapubic BOTOX Inj.'s [place] Sciatica Active Condition Jul 19 Entered By: ERNESTO BARROW Comment: Discopathy, L-Spine; Radiates Left Leg, Down to LEFT Ankle [place] Screening for malignant neoplasm of colon done Active Condition Jul 19, 2021 Entered By: ERNESTO BARROW Comment: Initial Screen Colonoscopy 2020 at [facility];Jul 19, 2021 Entered By: ERNESTO BARROW Comment: Neg CRC or Polyps; repeat 2030 (sooner prn) [place] Shoulder pain Active Condition Jan Entered By: ERNESTO BARROW Comment: Left Shldr and L Elbow Pains: X-Rays [place] DEC 15 Unremarkable [place] Type 2 diabetes mellitus Active Condition Jul 19, 2021 Entered By: ERNESTO BARROW Comment: +Diabet Neuropathy Feet; Sees Neuro Outside [facility] 2020 Entered By: ERNESTO BARROW Comment: Private Neuro Dr Iris Quigley [facility] [phone] 2020 Entered By: ERNESTO BARROW Comment: on Carbamepazine, Lyrica, for NeuropathyJul 19, 2021 Entered By: ERNESTO BARROW Comment: Sees Private Ophth Once Yr (Month of Aug); no DR as of JUL 16 [place] Under care of doctor Active Condition Jul 19, 2021 Entered By: ERNESTO BARROW Comment: Private PCP Dr Melissa Qugiley [facility] [phone] [place] Diagnosis: ICD-10-CM Z46.0 Encounter for fit/adjst of spectacles and contact lenses Active Diagnosis [facility] Diagnosis: ICD-10-CM E11.9 Type 2 diabetes mellitus without complications Active Diagnosis [facility] Medications Combined list of outpatient medications from Department of Defense and Veterans Affairs facilities.Medications provided include 1) outpatient medications from the last 15 months, and 2) patient-reported medications. Medication Details Route Status Patient Instructions Prescription Expires Prescription Number Last Dispense Date Ordering Provider Order Date Order Qty Source BACLOFEN 20MG TAB TAKE ONE TABLET BY MOUTH ONCE DAILY [facility] I[facility] BUPROPION HCL 300MG 24HR TAB,SA TAKE ONE TABLET BY MOUTH ONCE DAILY [facility] spring IELD CARBAMAZEPI NE 200MG TAB TAKE ONE TABLET BY MOUTH ONCE DAILY [facility] spring IELD CARBOXYMETH YLCELLULOSE NA 0.5% SOLN,OPH INSTILL 1 DROP INTO EACH EYE FOUR TIMES A DAY FOR DRY EYE OPHTHA LMIC 06/13/2024 [id number] 3 ANGEL,M ICHELE 2022 30 [facility] CLONAZEPAM 0.5MG TAB TAKE ONE TABLET BY MOUTH BEDTIME [facility] spring IELD CYANOCOBALA MIN 100MCG TAB TAKE ONE TABLET BY MOUTH ONCE DAILY [facility] spring IELD DULOXETINE HCL 30MG CAP,EC TAKE 3 CAPSULES BY MOUTH ONCE DAILY [facility] IELD LISINOPRIL 2.5MG TAB TAKE ONE TABLET BY MOUTH ONCE DAILY [facility] IELD METFORMIN HCL 1000MG TAB TAKE ONE TABLET BY MOUTH TWICE DAILY ORAL [facility] 2021 [facility] IELD NAPROXEN 500MG TAB TAKE ONE TABLET BY MOUTH TWICE DAILY NEEDED ORAL [facility] 2021 [facility] IELD OTHER CAP/TAB TAKE LYRICA 300 MG BY MOUTH TWICE DAILY [facility] 2021 [facility] IELD QUETIAPINE FUMARATE 25MG TAB TAKE ONE TABLET BY MOUTH BEDTIME ORAL [facility] 2020 [facility] IELD ROSUVASTATI N CA 20MG TAB TAKE ONE-HALF TABLET BY MOUTH ONCE DAILY [facility] 2020 [facility] IELD SITAGLIPTIN PHOSPHATE 100MG TAB TAKE ONE TABLET BY MOUTH ONCE DAILY [facility] 2021 [facility] IELD TAMSULOSIN HCL 0.4MG CAP TAKE 1 CAPSULE BY MOUTH BEDTIME ORAL ACTIVE DANIEL BARROW 2020 [facility] IELD Allergies, Adverse Reactions, Alerts Combined list of allergies from Department of Defense and Veterans Affairs facilities. It does not include entries that were removed or entered in error. Substance Category Reaction Severity Reaction type Status Date Reported Comments Source No Known Allergies Drug allergy (disorder) active 2 [facility] Propensity to adverse reactions to drug (finding) Urticaria active 1 [facility] ZOCOR Propensity to adverse reactions to drug (finding) Low blood pressure, Muscle pain active 1 [facility] Immunizations Combined list of available immunizations from the Department of Defense and Veterans Affairs facilities. 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 [employer] Status Comments Source INFLUENZA, UNSPECIFIED FORMULATION 2022 88 complet ed [facility] COVID-19 (MODERNA), MRNA, LNP-S, BIVALENT, PF, 50 MCG/0.5 ML OR 25MCG/0.25 ML DOSE 1 2022 229 complet ed [facility] COVID-19 (PFIZER), MRNA, LNP-S, PF, 30 MCG/0.3 ML DOSE 3 2021 208 complet ed [facility] PNEUMOCOCCAL POLYSACCHARID E PPV23 2021 33 complet ed [facility] IELD ZOSTER RECOMBINANT 2 2021 187 complet ed [facility] IELD TDAP 2020 115 complet ed [facility] ZOSTER RECOMBINANT 1 2020 187 complet ed [facility] INFLUENZA, UNSPECIFIED FORMULATION 2020 88 complet ed [facility] COVID-19 (PFIZER), MRNA, LNP-S, PF, 30 MCG/0.3 ML DOSE 2 2020 208 complet [facility] COVID-19 (PFIZER), MRNA, LNP-S, PF, 30 MCG/0.3 ML DOSE 1 2020 208 complet ed [facility] Encounters Combined list of: 1) Encounters from Department of Veterans Affairs facilities going back up to thelast 18 months. 2) Encounters from the Department of Defense facilities going back up to 280 months. Location Location Details Encounter Type Encounter Number Reason For Visit Attending Provider ADM Date DC Date Status Disposition Source [facility] Outpatient Encounter [id number] 03/30 [facility] Out[facility] Encounter [id number] 04/30 [facility] EYE EXAM&TX ESTAB PT 1/>VST [id number] Diagnos is: ICD-10- CM E11.9 Type 2 diabete s mellitu s without complic ations< br/> COLEMAN ORTIZ 06/13 [facility] CPTR OPHTH DX IMG POST SEGMT [id number] Diagnos is: ICD-10- CM E11.9 Type 2 diabete s mellitu s without complic ations< br/> COLEMAN ORTIZ 06/13 [facility] Out[facility] En[facility] [id number] 06/13 [facility] FIT SPECTACLES MULTIFOCAL [id number] Diagnos is: ICD-10- CM Z46.0 Encount er for fit/adj st of spectac les and contact lenses< br/> MARLY FORRESTER 06/13 [facility] Outpatient [facility]counter [id number] 09/30 [facility] [place] Outpatient Encounter [id number] 10/09 [place] [facility] Out[facility] Encounter [id number] 10/09 [facility] [id number] 10/10 [facility] Encounter [id number] 12/01 [facility] [id number] 12/01 [facility]counter [id number] 12/03 [facility] [id number] 12/23 [facility]counter [id number] 12/23 [facility] Out[facility]counter [id number] 01/06 [facility] Out[facility]counter [id number] 01/09 [facility] [id number] 07/01 [facility] Social History Combined list of available smoking, tobacco, and other social history from Department of Defense and Veterans Affairs facilities. Social History Type Response Date Comment Sourc e Tobacco smoking status NHIS [facility] FORMER USER 10/09/2023 [place] History of tobacco use [facility]-TO[facility]ACCO QUIT 15 YRS OR MORE 10/09/2023 [place] History of tobacco use [facility] FORMER US[facility] 07/19/2021 [facility] This section is an empty social history section. DoD Advance Directives List of completed, amended, or rescinded Advance Directives on record at Department of Veterans Affairs facilities. An actual copy of the Directive is not included. Date Advance Directive Provider Source 09/20/2021 ADVANCE DIRECTIVE RADHA MADERA 07/14/2021 ADVANCE DIRECTIVE RADHA MADERA
[2024-09-29 08:23] VITALS: BP 102/62; PULSE 78; RESP 16; O2SAT 97
--- NOTE | 2024-09-29 08:23 | A.OFFVIS_ITS ---
Vital Signs 09/29/24 08:23 09/29/24 10:00 BP 102/62 110/72 Blood Pressure Location Lt brachial Lt brachial Position Sitting Supine Respiration 16 16 Pulse 78 78 Pulse Source Pulse Oximeter Pulse Oximeter Pulse Oximetry (%) 97 Oxygen Delivery Method Room Air Intake Visit Reasons: ITDD TRIAL WITH BUPIVACAINE Scrap Burner Required: No Allergies linagliptin [From [place]] Allergy (Intermediate, Verified 09/29/24 08:23) RASH Zcrixkm-ZJO-ZeB Reductase Inhibitor [ARNPQFS-UKU-UPG REDUCTASE INHIBITOR] Allergy (Intermediate, Verified 09/29/24 08:23) ITCHY,SKIN BREAKDOWN Medication List - Last Reconciled 09/29/24 by Marisa Sigala LPN baclofen 20 mg PO BID blood sugar diagnostic As directed blood-glucose meter As directed bupropion HCl XL 300 mg PO QAM carbamazepine ER 400 mg PO DAILY cyanocobalamin (vitamin B-12) 1,000 mcg PO DAILY cyclobenzaprine 5 mg PO TID PRN docusate sodium 200 mg (2 x 100 mg) PO BEDTIME duloxetine 60 mg PO DAILY duloxetine 30 mg PO DAILY finasteride 5 mg PO DAILY ibuprofen 600 mg PO Q6H PRN lamotrigine 200 mg PO BID lancets (FreeStyle Lancets) As directed lisinopril 2.5 mg PO DAILY metformin ER 500 mg PO ONCE naproxen 500 mg PO BID prazosin 2 mg PO BEDTIME pregabalin 300 mg PO BID psyllium husk (Metamucil) 1 tbsp PO DAILY quetiapine 50 - 100 mg PO BEDTIME tamsulosin 0.4 mg PO BEDTIME 90 days [facility] Medical History History of COVID-19 Low back pain Peripheral neuropathy Arthritis Unintentional weight loss PTSD (post-traumatic stress disorder) Hematuria Left lower quadrant pain Urinary frequency Type 2 diabetes mellitus with unspecified complications Other obstructive and reflux uropathy Benign prostatic hyperplasia with lower urinary tract symptoms Urgency incontinence Hypercalcemia Surgical History S/P fusion of sacroiliac joint History of esophagogastroduodenoscopy (EGD) Anal fissure History of surgery Hx of cystoscopy Hx of cardiac catheterization History of prostate surgery Hx of cystoscopy Hx of cystoscopy H/O colonoscopy Social History (Updated 09/01/24 @ 15:04 by CHRYSTAL Rutledge) Are you a primary children's zoo caretaker to a significant other at home: No Do you presently have visiting nurse or other home services: Yes ([employer]) Alcohol intake: never Patient Tobacco Use Status: Former Tobacco user Tobacco use type: Cigarette Second Hand Smoke Exposure: No Substance Use Type: Marijuana service: Yes Current occupational status: unemployed Current occupation: left handed Physical Exam Vital Signs: Last Vital Signs Pulse 78 09/29/24 10:00 Resp 16 09/29/24 10:00 BP 110/72 09/29/24 10:00 Pulse Ox 97 09/29/24 08:23 Oxygen Delivery Method Room Air 09/29/24 08:23 Assessment & Plan Assessment & Plan (1) Chronic pain syndrome: Code(s): G89.4 - Chronic pain syndrome Category: Medical Plan Trial of intrathecal pain pump with bupivacaine. Informed consent was thoroughly explained to the patient before the procedure.? The patient came to the operating room.? He was positioned prone on operating table with a pillow under her abdomen.? Time-out was performed delineating correct site and side of the procedure, nature of the injection, name and date of of the patient. The lower back and upper buttocks of the patient was prepped with ChloraPrep and draped with sterile utility towels.? C-arm was brought over the operating field and and sq picture of the L2 and L3 vertebra were demonstrated on the screen. Projection of the right upper lamina of the L3 vertebra to the skin was injected with lidocaine 2% forming a skin wheal. After that 22 gauge pencil point Hurtado needle was inserted through the skin wheal and it was advanced toward the intrathecal space under anterior posterior and lateral views intermittently. When the tip of the needle was in the center of the intrathecal space on lateral view the stylette was removed and patient was requested to cough. Clear flow of CSF was observed coming from the hub of the needle. After that injection of the 1 cc of preservative-free bupivacaine 0.25% (2.5 mg) was performed small barbotage. Upon completion of the injection needle was removed sterile Band-Aid was applied. The patient was transferred on the bed supine with head at the level of the chest. He was recovering for 1 hour after the procedure in this position. No immediate complications were observed. Orders: Orders FL guidance in treatment room Today M53.3 - Sacrococcygeal disorders, not elsewhere classified, Z98.1 - Arthrodesis status Coding Level of Care Code Procedure Only Diagnoses Chronic pain syndrome G89.4
[2024-09-29 10:00] VITALS: BP 110/72; PULSE 78; RESP 16
== END 2024-09-29 11:52 | disposition home or self-care (01) ==
PROVIDERS: PCP Internal Medicine; Visit Provider Anesthesiology
DX: G89.4 Chronic pain syndrome (principal)
CPT/HCPCS: 62323

== ENCOUNTER 2024-10-07 09:17 | Outpatient (AMB) | payer OTHER, SELFPAY ==
[2024-10-07 09:27] VITALS: BP 105/63; PULSE 78; O2SAT 98
--- NOTE | 2024-10-07 09:27 | A.OFFVIS_ITS ---
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: No Allergies linagliptin [From TRADJENTA] Allergy (Intermediate, Verified 10/07/24 09:28) RASH Ujceioj-LVG-ZuU Reductase Inhibitor [DHYCKJP-VHM-RHY REDUCTASE INHIBITOR] Allergy (Intermediate, Verified 10/07/24 09:28) ITCHY,SKIN BREAKDOWN Medication List - Last Reconciled 10/07/24 by Lizeth Nevarez, HEALTH ANALYST baclofen 20 mg PO BID blood sugar diagnostic As directed blood-glucose meter As directed bupropion HCl XL 300 mg PO QAM carbamazepine ER 400 mg PO DAILY cyanocobalamin (vitamin B-12) 1,000 mcg PO DAILY cyclobenzaprine 5 mg PO TID PRN docusate sodium 200 mg (2 x 100 mg) PO BEDTIME duloxetine 60 mg PO DAILY duloxetine 30 mg PO DAILY finasteride 5 mg PO DAILY ibuprofen 600 mg PO Q6H PRN lamotrigine 200 mg PO BID lancets (FreeStyle Lancets) As directed lisinopril 2.5 mg PO DAILY metformin ER 500 mg PO ONCE naproxen 500 mg PO BID prazosin 2 mg PO BEDTIME pregabalin 300 mg PO BID psyllium husk (Metamucil) 1 tbsp PO DAILY quetiapine 50 - 100 mg PO BEDTIME tamsulosin 0.4 mg PO BEDTIME 90 days HPI Comments Details: Linus is today in my office after bupivacaine trial with intrathecal pain pump. He reported slow onset of pain relief post injection. He received 2.5 mg of bupivacaine intrathecally. However he reported that for the several days after the injection of this dose of the bupivacaine he was able to walk without cane, he reported improved activities of daily living, he stated that he was able to shovel the snow on his front yard, he reports about 60% pain improvement after the injection. I will schedule him for implantation of intrathecal pain pump with bupivacaine. We need to order bupivacaine from [facility] for the procedure. Prior: Patient presents back to the office today 1 month status post lumbar trigger point injections. He reports no improvement in the pain since the injections. Today patient complaining of pain over left PSIS, worse with sitting for long periods of time, standing and lying on the affected side. Prior: Linus presents back to the office today for follow-up. He was last seen here 03/14/2023 where he underwent injection for greater trochanteric bursitis. He reports since the injection he has no longer having pain to the lateral thigh. Today he is complaining of pain to the left lower back. Previously had left SI joint fusion, he also has sacral nerve stimulator, the device is near the area of his pain. He is adamant that the pain is not related to the device. Pain is worse with moving, bending, twisting and palpation. He does not have any pain to the groin. He does report some radiation of the pain to his left thigh posteriorly Currently he is using THC for his pain Prior: Linus is a pleasant 52 year old male who presents back to the office for follow up left hip pain. Patient reports he was seen in the office last month for similar pain and was prescribed Tizanidine three times daily. States he tried but did not receive any relief with the muscle relaxer, he even tried taking 2 and 3 tabs at once with no help. He also went to the dispensary where he bought CBD cream but did not note any benefit with this either. Prior: Linus is very pleasant 52 years old gentleman who is in my office again with new complaint. He reports that pain with movement related to sacroiliac joint on the left with was addressed with left SI joint fusion performed on 09/07/2022 is not bothering him anymore. However he reports that 2 weeks ago experience pain in the left side of the lower back radiating to the left flank. He reports the pain is getting more severe his torso flexion and rotation. He has been implanted sacral nerve stimulation device near this area so the trigger point injections are potentially risky for disruption of the stimulating leads. It sound to me that the patient is suffering from myofascial pain syndrome. To begin his treatment I offered him to start him on muscle relaxant tizanidine 2 mg t.i.d.. If this does will help him minimally without side effects I will increase the doses of the tizanidine. We agreed that he will give us a call in couple of weeks and if pain is continue to bother him schedule yet 1 more appointment. Prior: ? He received bilateral sacroiliac joint injections diagnostic with ropivacaine and he had 100% pain relief for the 1st 7 hours after the injection. He received diagnostic injection on 08/07/2022.? [facility] Medical History History of COVID-19 Low back pain Peripheral neuropathy Arthritis Unintentional weight loss PTSD (post-traumatic stress disorder) Hematuria Left lower quadrant pain Urinary frequency Type 2 diabetes mellitus with unspecified complications Other obstructive and reflux uropathy Benign prostatic hyperplasia with lower urinary tract symptoms Urgency incontinence Hypercalcemia Surgical History S/P fusion of sacroiliac joint History of esophagogastroduodenoscopy (EGD) Anal fissure History of surgery Hx of cystoscopy Hx of cardiac catheterization History of prostate surgery Hx of cystoscopy Hx of cystoscopy H/O colonoscopy Social History (Updated 09/01/24 @ 15:04 by Freddy Anaya Malou) Are you a primary director medicare sales to a significant other at home: No Do you presently have visiting nurse or other home services: 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 Answers questions appropriately. Fully engaged in examination. Skin: warm, dry, intact without visible rashes or lesions. HEENT: Normocephalic. Conjuntivae clear without exudate. Sclera non-icteric. Hearing intact. Cardiac: External chest normal in appearance. Respiratory: No signs of trauma. No signs of respiratory distress. No cough, audible wheezing or stridor. Abdomen: without gross distension. MS: Well-healed surgical scar left lower back Tenderness over left PSIS Gaenslen positive on the left SI compression positive on the left TYRESE positive on the left Thigh thrust positive on the left Nontender over midline lumbar vertebrae and lumbar paraspinal muscles SLR negative bilaterally Neurological: Oriented to person, place, time and situation. Thought process intact. No gait abnormalities appreciated. Psychiatric: Appropriate mood and affect. Good judgment and insight. Results Reviewed Results Reviewed: 04/02/2024 CT/CT bony pelvis FINDINGS: PELVIS: No pelvic soft tissue mass or fluid collection. The visualized pelvic bowel loops are unremarkable. No bowel wall thickening or frontal change. No pelvic bowel obstruction. The distal ureters are unremarkable. Nondistended urinary bladder. Pelvic phleboliths and prostate calcifications. No pelvic lymphadenopathy. No significant pelvic wall hernia. Pain pump redemonstrated within the left subcutaneous tissues with the lead in the left pelvis, unchanged. OSSEOUS STRUCTURES: Orthopedic hardware redemonstrated within the left sacroiliac joint. No hardware fracture or perihardware lucency to suggest loosening or infection. No significant osseous bridging across the left sacroiliac joint. There are small marginal osteophytes with mild subchondral sclerosis. No periarticular erosion. Mild right sacral iliac joint space narrowing with anterior bridging osteophytes. No periarticular erosion. No acute fracture or dislocation. No concerning lytic or blastic osseous lesion. No evidence of femoral head avascular necrosis. IMPRESSION: 1. Orthopedic hardware redemonstrated within the left sacroiliac joint without evidence of hardware complication. No significant osseous bridging across the left sacroiliac joint. 2. Mild right sacroiliac osteoarthritis with anterior bridging osteophytes. EXAMINATION: XR PELVIS XR HIP, BILATERAL CLINICAL INFORMATION: Chronic pain syndrome. COMPARISON: Several fluoroscopic images of pelvis and SI joints are obtained 10/29/2022, 09/07/2022. TECHNIQUE: 2 views each hip. 2 views pelvis. FINDINGS: Left Hip: There is mild reduction left hip joint space but no bony erosive changes, fracture, dislocation or loose bodies. The soft tissues are normal. Incidental note is made of left sacral electrode for pain management. Right Hip: There is minimal loss of right hip joint space. No bony erosive changes, loose bodies or soft tissue swelling. AP Pelvis: There is normal symmetry of bilateral SI joints. Evidence of left SI joint fusion device IMPRESSION: 1. Mild early degenerative changes bilateral hip joints. No visible acute fracture, dislocation or subluxation seen. ? 2. There is evidence of left SI joint fusion device. Assessment & Plan Assessment & Plan (1) Left hip pain: Code(s): M25.552 - Pain in left hip Category: Medical (2) Pain of both sacroiliac joints: Code(s): M53.3 - Sacrococcygeal disorders, not elsewhere classified Category: Medical (3) Osteoarthritis of hips, bilateral: Code(s): M16.0 - Bilateral primary osteoarthritis of hip Category: Medical (4) Chronic pain syndrome: Code(s): G89.4 - Chronic pain syndrome Category: Medical (5) Myofascial pain syndrome: Code(s): M79.18 - Myalgia, other site Category: Medical (6) Myofascial pain syndrome of lumbar spine: Code(s): M79.18 - Myalgia, other site Category: Medical (7) Sacroiliac joint dysfunction of left side: Code(s): M53.3 - Sacrococcygeal disorders, not elsewhere classified Category: Medical (8) S/P fusion of sacroiliac joint: Code(s): Z98.1 - Arthrodesis status Category: Surgical Plan Presents back to the office today for follow-up 3 days status post Left favio gnostic sacroiliac joint innervation injection Intrathecal pain pump trial resulted in prolonged and effective improvement of patient's mobility, activities of daily living, and social interactions. It also demonstrated all 60% pain improvement after the injection. I will schedule him for implantation of intrathecal pain pump [employer]. Coding Level of Care Code Est Pt Level 3 (15932) Diagnoses Left hip pain M25.552 Pain of both sacroiliac joints M53.3 Osteoarthritis of hips, bilateral M16.0 Chronic pain syndrome G89.4 Myofascial pain syndrome M79.18 Myofascial pain syndrome of lumbar spine M79.18 Sacroiliac joint dysfunction of left side M53.3 S/P fusion of sacroiliac joint Z98.1
--- OUTSIDE RECORDS SUMMARY | 2024-10-07 10:20 | XMS_ITS | Continuity of Care Document ---
Author Name [facility] Organization [facility] Care Team Providers Care Special Effects Designer Name Role Phone [facility] Unavailable Unavailable Problems Combined list of problems from Department of Defense and Veterans Affairs facilities. It does not include entries that were removed or entered in error. Problem Status Onset Date Problem Type Date of Resolution Comments Source Abdominal pain Active Condition Jun 272020 Entered By: ERNESTO BARROW Comment: ABD Pain; Etio?Jul 19, 2021 Entered By: ERNESTO BARROW Comment: Sees Private [facility] Dr Melendrez [phone] [place] Benign hypertension Active Condition SP [facility] Benign prostatic hyperplasia Active Condition Jul 19, 2021 Entered By: ERNESTO BARROW Comment: Sees URO Every 3-4 Months for BPHJul 19, 2021 Entered By: ERNESTO BARROW Comment: Last Visit to Private [facility]RO was JUN 15:Jul 19, 2021 Entered By: ERNESTO BARROW Comment: Office Ultrasound Neg for Suspicious Lesions; No Heme on UA in JUN 15 [place] Depression Active Condition Jul 19 Entered By: ERNESTO BARROW Comment: Depression, Anxiety, PTSDJul 19, 2021 Entered By: ERNESTO BARROW Comment: Sees Private [facility] Dr. Suarez [phone] at [facility] 2021 Entered By: ERNESTO BARROW Comment: No SI / HINov 2020 Entered By: ERNESTO BARROW Comment: also Therapist Dr Green [facility] [phone] [place] Fibromyalgia Active Condition Jul 19, 2021 Entered By: ERNESTO BARROW Comment: Episodic Break-Throughs ; Severe when Sx Erupt; Affects Whole Body Jul 19, 2021 Entered By: ERNESTO BARROW Comment: Pain Management [place] [facility] [phone] [place] Gordon hematuria Active Condition Jul 19, 2021 Entered By: ERNESTO BARROW Comment: [facility] Dr Sandhu [phone][facility] Entered By: ERNESTO BARROW Comment: Denies Renal, Bladder CA; No Lithiasis; +BPH as of JUL 16springBAM Hypercholesterolemia Active Condition Jul 19, 2021 Entered By: ERNESTO BARROW Comment: h/o Elevated Lipids; On Crestor; Allergic to Other Statins [place] Overactive bladder Active Condition J 2021 Entered By: ERNESTO BARROW Comment: Sees URO; Gets Suprapubic BOTOX Inj.'s [place] Sciatica Active Condition Jul 19 Entered By: ERNESTO BARROW Comment: Discopathy, L-Spine; Radiates Left Leg, Down to LEFT Ankle [place] Screening for malignant neoplasm of colon done Active Condition Jul 19, 2021 Entered By: ERNESTO BARROW Comment: Initial Screen Colonoscopy 2020 at [facility];Jul 19, 2021 Entered By: ERNESTO BARROW Comment: Neg CRC or Polyps; repeat 2030 (sooner prn) [place] Shoulder pain Active Condition Jan Entered By: ERNESTO BARROW Comment: Left Shldr and L Elbow Pains: X-Rays [place] DEC 15 Unremarkable [place] Type 2 diabetes mellitus Active Condition Jul 19, 2021 Entered By: ERNESTO BARROW Comment: +Diabet Neuropathy Feet; Sees Neuro Outside [facility] 2020 Entered By: ERNESTO BARROW Comment: Private Neuro Dr Iris Quigley [facility] [phone] 2020 Entered By: ERNESTO BARROW Comment: on Carbamepazine, Lyrica, for NeuropathyJul 19, 2021 Entered By: ERNESTO BARROW Comment: Sees Private Ophth Once Yr (Month of Aug); no DR as of JUL 16 [place] Under care of doctor Active Condition Jul 19, 2021 Entered By: ERNESTO BARROW Comment: Private PCP Dr Melissa Quigley [facility] [phone] [place] Diagnosis: ICD-10-CM Z46.0 Encounter for fit/adjst of spectacles and contact lenses Active Diagnosis [facility] Diagnosis: ICD-10-CM E11.9 Type 2 diabetes mellitus without complications Active Diagnosis [facility] Medications Combined list of outpatient medications from Department of Defense and Veterans Affairs facilities.Medications provided include 1) outpatient medications from the last 15 months, and 2) patient-reported medications. Medication Details Route Status Patient Instructions Prescription Expires Prescription Number Last Dispense Date Ordering Provider Order Date Order Qty Source BACLOFEN 20MG TAB TAKE ONE TABLET BY MOUTH ONCE DAILY [facility] BUPROPION HCL 300MG 24HR TAB,SA TAKE ONE TABLET BY MOUTH ONCE DAILY [facility] IELD CARBAMAZEPI NE 200MG TAB TAKE ONE TABLET BY MOUTH ONCE DAILY [facility] CARBOXYMETH YLCELLULOSE NA 0.5% SOLN,OPH INSTILL 1 DROP INTO EACH EYE FOUR TIMES A DAY FOR DRY EYE OPHTHA LMIC 06/13/2024 [id number] ANGEL,M ICHELE 2022 30 [facility] CLONAZEPAM 0.5MG TAB TAKE ONE TABLET BY MOUTH BEDTIME [facility] CYANOCOBALA MIN 100MCG TAB TAKE ONE TABLET BY MOUTH ONCE DAILY [facility] spring IELD DULOXETINE HCL 30MG CAP,EC TAKE 3 CAPSULES BY MOUTH ONCE DAILY [facility] LISINOPRIL 2.5MG TAB TAKE ONE TABLET BY MOUTH ONCE DAILY [facility] METFORMIN HCL 1000MG TAB TAKE ONE TABLET BY MOUTH TWICE DAILY [facility] 2021 [facility] NAPROXEN 500MG TAB TAKE ONE TABLET BY MOUTH TWICE DAILY NEEDED ORAL [facility] 2021 [facility] OTHER CAP/TAB TAKE LYRICA 300 MG BY MOUTH TWICE DAILY [facility] 2021 [facility] [place] QUETIAPINE FUMARATE 25MG TAB TAKE ONE TABLET BY MOUTH BEDTIME ORAL [facility] 2020 [facility] [place] ROSUVASTATI N CA 20MG TAB TAKE ONE-HALF TABLET BY MOUTH ONCE DAILY [facility] 2020 [facility] SITAGLIPTIN PHOSPHATE 100MG TAB TAKE ONE TABLET BY MOUTH ONCE DAILY [facility] 2021 [facility] [place] TAMSULOSIN HCL 0.4MG CAP TAKE 1 CAPSULE BY MOUTH BEDTIME ORAL ACTIVE DANIEL [facility] 2020 [facility] [place] Allergies, Adverse Reactions, Alerts Combined list of allergies from Department of Defense and Veterans Affairs facilities. It does not include entries that were removed or entered in error. Substance Category Reaction Severity Reaction type Status Date Reported Comments Source No Known Allergies Drug allergy (disorder) active 2 [facility] [place] [facility] Propensity to adverse reactions to drug (finding) Urticaria active 1 [facility] ZOCOR Propensity to adverse reactions to drug (finding) Low blood pressure, Muscle pain active 1 [facility] Immunizations Combined list of available immunizations from the Department of Defense and Veterans Affairs facilities. Immunization Series Date Given Administered By Site Reaction Lot Number CVX Code Drug Help Desk Technician Status Comments Source INFLUENZA, UNSPECIFIED FORMULATION 2022 88 complet ed [facility] COVID-19 (MODERNA), MRNA, LNP-S, BIVALENT, PF, 50 MCG/0.5 ML OR 25MCG/0.25 ML DOSE 1 2022 229 complet ed [facility] COVID-19 (PFIZER), MRNA, LNP-S, PF, 30 MCG/0.3 ML DOSE 3 2021 208 complet ed [facility] PNEUMOCOCCAL POLYSACCHARID E PPV23 2021 33 complet ed [facility] ZOSTER RECOMBINANT 2 2021 187 complet ed [facility] TDAP 2020 115 complet ed [facility] ZOSTER RECOMBINANT 1 2020 187 complet ed [facility] INFLUENZA, UNSPECIFIED FORMULATION 2020 88 complet ed [facility] COVID-19 (PFIZER), MRNA, LNP-S, PF, 30 MCG/0.3 ML DOSE [address] [facility] COVID-19 (PFIZER), MRNA, LNP-S, PF, 30 MCG/0.3 ML DOSE 1 2020 208 complet ed [facility] Encounters Combined list of: 1) Encounters from Department of Veterans Affairs facilities going backup to the last 18 months, not all VA inpatient encounters are included; 2) Encounters from the Department of Defense facilities going backup to 280 months. Location Location Details Encounter Type Encounter Number Reason For Visit Attending Provider ADM Date DC Date Status Disposition Source [facility] Outpatient Encounter [id number] 03/30 [facility] Outpatient Encounter [id number] 04/30 [facility] EYE EXAM&TX ESTAB PT 1/>VST [id number] Diagnos is: ICD-10- CM E11.9 Type 2 diabete s mellitu s without complic ations COLEMAN ORTIZ CRISTAL 06/13 [facility] CPTR OPHTH DX IMG POST SEGMT [id number] Diagnos is: ICD-10- CM E11.9 Type 2 diabete s mellitu s without complic ations COLEMAN ORTIZ CRISTAL 06/13 [facility] Out[facility] Encounter [id number] 06/13 [facility] FIT SPECTACLES MULTIFOCAL [id number] Diagnos is: ICD-10- CM Z46.0 Encount er for fit/adj st of spectac les and contact lenses MARLY FORRESTER 06/13 [facility] Out[facility] Encounter [id number] 09/30 [facility] [place] Outpatient Encounter [id number] 10/09 [place] [facility] Out[facility] Encounter [id number] 10/09 [facility] [id number] 10/10 [facility] Encounter [id number] 12/01 [facility]counter [id number] 12/01 [facility] [id number] 12/03 [facility] [id number] 12/23 [facility] [id number] 12/23 [facility] Encounter [id number] 01/06 [facility] [id number] 01/09 [facility] Out[facility]counter [id number] 07/01 [facility] Social History Combined list of available smoking, tobacco, and other social history from Department of Defense and Veterans Affairs facilities. Social History Type Response Date Comment Sourc e Tobacco smoking status [place] [facility]-TO[facility]CO FORMER USER 10/09/2023 [place] History of tobacco use [facility]-TOBACCO QUIT 15 YRS OR MORE 10/09/2023 [place] History of tobacco use [facility]-TOBACCO FORMER USER 07/19/2021 [facility] This section is an empty social history section. DoD Advance Directives List of completed, amended, or rescinded Advance Directives on record at Department of Veterans Affairs facilities. An actual copy of the Directive is not included. Date Advance Directive Provider Source 09/20/2021 ADVANCE DIRECTIVE RADHA MADERA 07/14/2021 ADVANCE DIRECTIVE RADHA MADERA
== END 2024-10-07 09:56 | disposition home or self-care (01) ==
PROVIDERS: PCP Internal Medicine; Visit Provider Anesthesiology
DX: M25.552 Pain in left hip (principal); M53.3 Sacrococcygeal disorders, not elsewhere classified; M16.0 Bilateral primary osteoarthritis of hip; G89.4 Chronic pain syndrome; M79.18 Myalgia, other site; Z98.1 Arthrodesis status
CPT/HCPCS: 99213

== ENCOUNTER → 2024-10-07 09:17 | Outpatient (BNVA) | payer OTHER, SELFPAY | PROVIDERS: PCP Internal Medicine; Visit Provider Anesthesiology | DX: M25.552 Pain in left hip (principal); M53.3 Sacrococcygeal disorders, not elsewhere classified; M16.0 Bilateral primary osteoarthritis of hip; M79.18 Myalgia, other site; G89.4 Chronic pain syndrome; Z98.1 Arthrodesis status | CPT/HCPCS: 99212 ==

== ENCOUNTER 2024-11-16 14:47 | Outpatient (REF) | payer OTHER, SELFPAY ==
[2024-11-16 17:04] LABS: Estimated Average Glucose 166 mg/dL; Hemoglobin A1c % 7.4 % (<6.0)
[2024-11-16 17:38] LABS: Alanine Aminotransferase 25 U/L (0-40); Albumin Level 4.2 g/dL (3.5-5.0); Alkaline Phosphatase 138 U/L (39-117); Anion Gap 14 (12-20); Aspartate Amino Transferase 18 U/L (5-37); Bilirubin Total 0.2 mg/dL (0.0-1.0); Blood Urea Nitrogen 13 mg/dL (9-16); Calcium 9.1 mg/dL (8.4-10.2); Carbon Dioxide 26 mmol/L (22-29); Chloride 104 mmol/L (96-108); Estimated Glomerular Filt Rate > 60; Glucose Random 234 mg/dL (60-115); Potassium 4.7 mmol/L (3.3-5.1); Sodium 139 mmol/L (135-145); Total Protein 6.5 g/dL (6.5-8.0)
== END 2024-11-16 14:48 | disposition home or self-care (01) ==
LOC: HO.LAB 14:47
PROVIDERS: PCP Internal Medicine; Visit Provider Internal Medicine
DX: E11.9 Type 2 diabetes mellitus without complications (principal); E78.00 Pure hypercholesterolemia, unspecified; M67.814 Other specified disorders of tendon, left shoulder
CPT/HCPCS: 36415; 80053; 83036

== ENCOUNTER 2024-11-20 08:18 | Day surgery (SDC) | payer OTHER, SELFPAY ==
--- OUTSIDE RECORDS SUMMARY | 2024-10-19 06:38 | XMS_ITS | Continuity of Care Document ---
Author Name [facility] Organization [facility] Care Team Providers Care Floriculture Professor Name Role Phone [facility] Unavailable Unavailable Problems Combined list of problems from Department of Defense and Veterans Affairs facilities. It does not include entries that were removed or entered in error. Problem Status Onset Date Problem Type Date of Resolution Comments Source Abdominal pain Active Condition Jun 272020 Entered By: ERNESTO BARROW Comment: ABD Pain; Etio?Jul 19, 2021 Entered By: ERNESTO BARROW Comment: Sees Private [facility] Dr Melendrez [phone] [place] Benign hypertension Active Condition SP [facility] Benign prostatic hyperplasia Active Condition Jul 19, 2021 Entered By: ERNESTO BARROW Comment: Sees URO Every 3-4 Months for BPHJul 19, 2021 Entered By: ERNESTO BARROW Comment: Last Visit to Private URO was JUN 15:Jul 19, 2021 Entered By: ERNESTO BARROW Comment: Office Ultrasound Neg for Suspicious Lesions; No Heme on UA in JUN 15 [place] Depression Active Condition Jul 19 Entered By: ERNESTO BARROW Comment: Depression, Anxiety, PTSDJul 19, 2021 Entered By: ERNESTO BARROW Comment: Sees [facility] Su[facility] [phone] [facility] 2021 Entered By: ERNESTO BARROW Comment: No SI / HINov 2020 Entered By: ERNESTO BARROW Comment: also Therapist Dr Green [facility] [phone] [place] Fibromyalgia Active Condition Jul 19, 2021 Entered By: ERNESTO BARROW Comment: Episodic Break-Throughs ; Severe when Sx Erupt; Affects Whole Body Jul 19, 2021 Entered By: ERNESTO BARROW Comment: Pain Management Dr So at [facility] [phone] [place] Gordon hematuria Active Condition Jul 19, 2021 Entered By: ERNESTO BARROW Comment: Private [facility] a Dr Sandhu [phone][facility] Entered By: ERNESTO BARROW Comment: Denies Renal, Bladder CA; No Lithiasis; +BPH as of JUL 16[place] Hypercholesterolemia Active Condition Jul 19, 2021 Entered By: ERNESTO BARROW Comment: h/o Elevated Lipids; On Crestor; Allergic to Other Statins [place] Overactive bladder Active Condition J 2021 Entered By: ERNESTO BARROW Comment: Sees URO; Gets Suprapubic BOTOX Inj.'s [place] Sciatica Active Condition Jul 19 Entered By: ERNESTO BARROW Comment: Discopathy, L-Spine; Radiates Left Leg, Down to LEFT Ankle [place] Screening for malignant neoplasm of colon done Active Condition Jul 19, 2021 Entered By: ERNESTO BARROW Comment: Initial Screen Colonoscopy 2020 at [facility];Jul 19, 2021 Entered By: ERNESTO BARROW Comment: Neg CRC or Polyps; repeat 2030 (sooner prn) [place] Shoulder pain Active Condition Jan Entered By: ERNESTO BARROW Comment: Left Shldr and L Elbow Pains: X-Rays [place] DEC 15 Unremarkable [place] Type 2 diabetes mellitus Active Condition Jul 19, 2021 Entered By: ERNESTO BARROW Comment: +Diabet Neuropathy Feet; Sees Neuro Outside [facility]ov 2020 Entered By: ERNESTO BARROW Comment: Private Neuro Dr Iris Quigley [facility] [phone] 2020 Entered By: ERNESTO BARROW Comment: on Carbamepazine, Lyrica, for NeuropathyJul 19, 2021 Entered By: ERNESTO BARROW Comment: Sees Private Ophth Once Yr (Month of Aug); no DR as of JUL 16 [place] Under care of doctor Active Condition Jul 19, 2021 Entered By: ERNESTO BARROW Comment: Private PCP Dr Melissa Quigley [facility] [phone] [place] Diagnosis: ICD-10-CM Z46.0 Encounter for fit/adjst of spectacles and contact lenses Active Diagnosis [facility] Diagnosis: ICD-10-CM E11.9 Type 2 diabetes mellitus without complications Active Diagnosis [facility] Medications Combined list of outpatient medications from Department of Defense and Veterans Affairs facilities.Medications provided include 1) outpatient medications from the last 15 months, and 2) patient-reported medications. Medication Details Route Status Patient Instructions Prescription Expires Prescription Number Last Dispense Date Ordering Provider Order Date Order Qty Source BACLOFEN 20MG TAB TAKE ONE TABLET BY MOUTH ONCE DAILY [facility] [address] [facility] IELD BUPROPION HCL 300MG 24HR TAB,SA TAKE ONE TABLET BY MOUTH ONCE DAILY [facility] spring IELD CARBAMAZEPI NE 200MG TAB TAKE ONE TABLET BY MOUTH ONCE DAILY [facility] spring IELD CLONAZEPAM 0.5MG TAB TAKE ONE TABLET BY MOUTH BEDTIME [facility] [address] [facility] IELD CYANOCOBALA MIN 100MCG TAB TAKE ONE TABLET BY MOUTH ONCE DAILY ORAL ACTIVE [facility] spring IELD DULOXETINE HCL 30MG CAP,EC TAKE 3 CAPSULES BY MOUTH ONCE DAILY ORAL ACTIVE [facility] spring IELD LISINOPRIL 2.5MG TAB TAKE ONE TABLET BY MOUTH ONCE DAILY ORAL ACTIVE [facility] spring IELD METFORMIN HCL 1000MG TAB TAKE ONE TABLET BY MOUTH TWICE DAILY ORAL [facility] [address] [facility] IELD NAPROXEN 500MG TAB TAKE ONE TABLET BY MOUTH TWICE DAILY NEEDED ORAL [facility] [address] [facility] IELD OTHER CAP/TAB TAKE LYRICA 300 MG BY MOUTH TWICE DAILY [facility] [address] [facility] IELD QUETIAPINE FUMARATE 25MG TAB TAKE ONE TABLET BY MOUTH BEDTIME ORAL [facility] [address] [facility] IELD ROSUVASTATI N CA 20MG TAB TAKE ONE-HALF TABLET BY MOUTH ONCE DAILY ORAL [facility] [address] [facility] IELD SITAGLIPTIN PHOSPHATE 100MG TAB TAKE ONE TABLET BY MOUTH ONCE DAILY ORAL [facility] [address] [facility] IELD TAMSULOSIN HCL 0.4MG CAP TAKE 1 CAPSULE BY MOUTH BEDTIME ORAL [facility] [address] [facility] IELD Allergies, Adverse Reactions, Alerts Combined list of allergies from Department of Defense and Veterans Affairs facilities. It does not include entries that were removed or entered in error. Substance Category Reaction Severity Reaction type Status Date Reported Comments Source No Known Allergies Drug allergy (disorder) active 2 [facility] TRADJENTA Propensity to adverse reactions to drug (finding) Urticaria active 1 [facility] ZOCOR Propensity to adverse reactions to drug (finding) Low blood pressure, Muscle pain active 1 [facility] Immunizations Combined list of available immunizations from the Department of Defense and Veterans Affairs facilities. Immunization Series Date Given Administered By Site Reaction Lot Number CVX Code Drug Economic Specialist Status Comments Source INFLUENZA, UNSPECIFIED FORMULATION 2022 88 complet ed [facility] COVID-19 (MODERNA), MRNA, LNP-S, BIVALENT, PF, 50 MCG/0.5 ML OR 25MCG/0.25 ML DOSE 1 2022 229 complet ed [facility] COVID-19 (PFIZER), MRNA, LNP-S, PF, 30 MCG/0.3 ML DOSE 3 [address] [facility] PNEUMOCOCCAL POLYSACCHARID E PPV23 2021 33 complet ed [place] ZOSTER RECOMBINANT 2 2021 187 complet ed [place] TDAP 2020 115 complet ed [facility] ZOSTER RECOMBINANT 1 2020 187 complet ed [facility] INFLUENZA, UNSPECIFIED FORMULATION 2020 88 complet ed [facility] COVID-19 (PFIZER), MRNA, LNP-S, PF, 30 MCG/0.3 ML DOSE 2 [address] [facility] COVID-19 (PFIZER), MRNA, LNP-S, PF, 30 MCG/0.3 ML DOSE 1 [address] [facility] Encounters Combined list of: [...] [facility] [id number] 04/30 [facility] EYE EXAM&TX ESTAB PT 1/>VST [id number] Diagnos is: ICD-10- CM E11.9 Type 2 diabete s mellitu s without complic ations ANGELFL CRISTAL 06/13 [facility] CPTR OPHTH DX IMG POST SEGMT [id number] Diagnos is: ICD-10- CM E11.9 Type 2 diabete s mellitu s without complic ations ANGELFL CRISTAL 06/13 [facility] Outpatient Encounter [id number] 06/13 [facility] FIT SPECTACLES MULTIFOCAL [id number] Diagnos is: ICD-10- CM Z46.0 Encount er for fit/adj st of spectac les and contact lenses MARLY FORRESTER 06/13 [facility] Out[facility] Encounter [id number] 09/30 [facility] [place] Outpatient Encounter [id number] 10/09 [place] [facility] Out[facility] Encounter [id number] 10/09 [facility]counter [id number] 10/10 [facility]counter [id number] 12/01 [facility] [id number] 12/01 [facility] Encounter [id number] 12/03 [facility] En[facility] [id number] 12/23 [facility] En[facility] [id number] 12/23 [facility] En[facility] [id number] 01/06 [facility] Encounter [id number] 01/09 [facility] Out[facility]counter [id number] 07/01 [facility] Social History Combined list of available smoking, tobacco, and other social history from Department of Defense and Veterans Affairs facilities. Social History Type Response Date Comment [facility] e Tobacco smoking status [facility]-TOBACCO FORMER USER 10/09/2023 [place] History of tobacco use [place]AC[facility] QU[place] 15 YRS OR MORE 10/09/2023 [place] History of tobacco use [facility] FORMER US[place] 07/19/2021 [facility] This section is an empty social history section. DoD Advance Directives List of completed, amended, or rescinded Advance Directives on record at Department of Veterans Affairs facilities. An actual copy of the Directive is not included. Date Advance Directive Provider Source 09/20/2021 ADVANCE DIRECTIVE RADHA MADERA 07/14/2021 ADVANCE DIRECTIVE RADHA MADERA
[2024-11-18 14:09] VITALS: BMI 24.1
--- NOTE | 2024-11-19 10:17 | P.CONAN_ITS ---
Documented by User: Edda Hoang NP 11/19/24 10:19 HPI - Anesthesia Eval Consult details Narrative: 54yo M for Intrathecal Drug Delivery Pain Pump Implant PMF Active Problems Active Problems: All Active Problems Impingement syndrome of left shoulder (Acute) Left shoulder pain (Acute) Nephrolithiasis (Acute) Flank pain (Acute) S/P fusion of sacroiliac joint (Acute) Sacroiliac joint dysfunction of left side (Acute) Kidney stone on left side (Acute) Hemorrhoids (Acute) Dyspepsia (Acute) Normal colonoscopy (Acute) Hospital discharge follow-up (Acute) Abdominal pain of unknown etiology (Acute) Left hip pain (Acute) Myofascial pain syndrome of lumbar spine (Acute) Myofascial pain syndrome (Acute) BPH w urinary obs/LUTS (Acute) Groin pain, chronic, left (Acute) Urinary urgency (Acute) Prostatitis (Acute) Interstitial cystitis (chronic) without hematuria (Acute) Chronic UTI (urinary tract infection) (Acute) Overactive bladder (Acute) Deep inguinal pain, left (Acute) COVID-19 (Acute) Pain of both sacroiliac joints (Acute) Osteoarthritis of hips, bilateral (Acute) Chronic pain syndrome (Acute) Hematuria (Acute) Left lower quadrant pain (Acute) Urinary frequency (Acute) Past Medical History Medical History History of COVID-19 Low back pain Peripheral neuropathy Arthritis Unintentional weight loss PTSD (post-traumatic stress disorder) Hematuria Left lower quadrant pain Urinary frequency Type 2 diabetes mellitus with unspecified complications Other obstructive and reflux uropathy Benign prostatic hyperplasia with lower urinary tract symptoms Urgency incontinence Hypercalcemia Family History Family history of problems with anesthesia: No Surgical History Surgical History S/P fusion of sacroiliac joint History of esophagogastroduodenoscopy (EGD) Anal fissure History of surgery Hx of cystoscopy Hx of cardiac catheterization History of prostate surgery Hx of cystoscopy Hx of cystoscopy H/O colonoscopy History of Problems with Anesthesia: No Social History Social History (Updated 09/01/24 @ 15:04 by CHRYSTAL Rutledge) Are you a primary critical care paramedic to a significant other at home: No Do you presently have visiting nurse or 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) Alcohol intake: never Patient Tobacco Use Status: Former Tobacco user Tobacco use type: Cigarette Second Hand Smoke Exposure: No Use of substances other than those prescribed or required for medical reasons: Yes Substance Use Type: Marijuana Are you DNR?: No Advance Directives: No Advance Directives Information Provided: Yes Nutrition Risks: No Nutritional Risk Poor oral hygiene: No service: Yes Current occupational status: unemployed Current occupation: left handed Meds Allergies Allergy/AdvReac Type Severity Reaction Status Date / Time linagliptin [From TRADJENTA] Allergy Intermediate RASH Verified 10/07/24 09:28 Lszjdiw-COQ-RqO Reductase Allergy Intermediate ITCHY,SKIN Verified 10/07/24 09:28 Inhibitor BREAKDOWN [XBYUGKP-[id number]-RLI REDUCTASE INHIBITOR] Home Medications ?Medication ?Instructions ?Recorded ?Confirmed ?Last Taken ?Type pregabalin 300 mg capsule 300 mg PO BID 08/31/20 11/18/24 11/20/24 History bupropion HCl 300 mg 24 hr tablet, 300 mg PO QAM 10/14/20 11/18/24 11/20/24 History extended release lamotrigine 200 mg tablet 200 mg PO BID 10/14/20 11/18/24 10/29/22 05:15 History blood sugar diagnostic #10 ea 02/15/21 10/07/24 Unknown History blood-glucose meter #1 ea 02/15/21 10/07/24 Unknown History lancets 28 gauge (FreeStyle #100 ea 02/20/22 10/07/24 Unknown History Lancets) cyanocobalamin (vitamin B-12) 1,000 mcg PO DAILY 07/02/23 11/18/24 Unknown History 1,000 mcg tablet duloxetine 30 mg capsule,delayed 30 mg PO DAILY 07/02/23 11/18/24 11/20/24 Histo ry release duloxetine 60 mg capsule,delayed 60 mg PO DAILY 07/02/23 11/18/24 11/20/24 History release finasteride 5 mg tablet 5 mg PO DAILY 07/02/23 11/18/24 Unknown History lisinopril 2.5 mg tablet 2.5 mg PO DAILY 07/02/23 11/18/24 Unknown History metformin 500 mg tablet,extended 500 mg PO ONCE 06/17/24 11/18/24 Unknown History release 24 hr baclofen 20 mg tablet 20 mg PO BID 09/01/24 11/18/24 11/20/24 History carbamazepine 400 mg 400 mg PO DAILY 09/01/24 11/18/24 Unknown History tablet,extended release,12 hr ibuprofen 600 mg tablet 600 mg PO Q6H PRN Pain 09/01/24 11/18/24 Unknown History naproxen 500 mg tablet 500 mg PO BID 09/01/24 11/18/24 Unknown History prazosin 2 mg capsule 2 mg PO BEDTIME 09/01/24 11/18/24 Unknown History quetiapine 50 mg tablet 50 - 100 mg PO BEDTIME 09/01/24 11/18/24 Unknown History Exam Height,Weight and Vital Signs: Height 6 ft Weight 80.739 kg Pertinent Lab Results Pertinent Lab Results: Laboratory Tests 11/16/24 15:22 Sodium 139 Potassium 4.7 Chloride 104 Carbon Dioxide 26 BUN 13 Creatinine 1.05 Narrative Narrative: EKG 2023 Vent. Rate : 064 BPM Atrial Rate : 064 BPM P-R Int : 166 ms QRS Dur : 094 ms QT Int : 408 ms P-R-T Axes : 035 012 045 degrees QTc Int : 420 ms Normal sinus rhythm Lateral infarct (cited on or before 22-JAN-2021) Abnormal ECG When compared with ECG of 30-MAY-2023 19:40, No significant change was found Cardiac cath 2019 nml (false + stress) Assessment and Plan Assessment Anesthesia Assessment: Chart Reviewed Final Anesthetic Review Family History of Problems with Anesthesia: No History of Problems with Anesthesia: No Documented by User: Smith Catherine MD 11/20/24 10:59 [facility] Past Medical History Medical History History of COVID-19 Low back pain Peripheral neuropathy Arthritis Unintentional weight loss PTSD (post-traumatic stress disorder) Hematuria Left lower quadrant pain Urinary frequency Type 2 diabetes mellitus with unspecified complications Other obstructive and reflux uropathy Benign prostatic hyperplasia with lower urinary tract symptoms Urgency incontinence Hypercalcemia Surgical History Surgical History S/P fusion of sacroiliac joint History of esophagogastroduodenoscopy (EGD) Anal fissure History of surgery Hx of cystoscopy Hx of cardiac catheterization History of prostate surgery Hx of cystoscopy Hx of cystoscopy H/O colonoscopy Social History Social History (Updated 09/01/24 @ 15:04 by CHRYSTAL Rutledge) Are you a primary critical care paramedic to a significant other at home: No Do you presently have visiting nurse or 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) Alcohol intake: never Patient Tobacco Use Status: Former Tobacco user Tobacco use type: Cigarette Second Hand Smoke Exposure: No Use of substances other than those prescribed or required for medical reasons: Yes Substance Use Type: Marijuana Are you DNR?: No Advance Directives: No Advance Directives Information Provided: Yes Nutrition Risks: No Nutritional Risk Poor oral hygiene: No service: Yes Current occupational status: unemployed Current occupation: left handed Meds Allergies Allergy/AdvReac Type Severity Reaction Status Date / Time linagliptin [From TRADJENTA] Allergy Intermediate RASH Verified 10/07/24 09:28 Hjvhxhc-RPH-HwW Reductase Allergy Intermediate ITCHY,SKIN Verified 10/07/24 09:28 Inhibitor BREAKDOWN [MNKFLCT-GYQ-QUL REDUCTASE INHIBITOR] Home Medications ?Medication ?Instructions ?Recorded ?Confirmed ?Last Taken ?Type pregabalin 300 mg capsule 300 mg PO BID 08/31/20 11/18/24 11/20/24 History bupropion HCl 300 mg 24 hr tablet, 300 mg PO QAM 10/14/20 11/18/24 11/20/24 History extended release lamotrigine 200 mg tablet 200 mg PO BID 10/14/20 11/18/24 10/29/22 05:15 History blood sugar diagnostic #10 ea 02/15/21 10/07/24 Unknown History blood-glucose meter #1 ea 02/15/21 10/07/24 Unknown History lancets 28 gauge (FreeStyle #100 ea 02/20/22 10/07/24 Unknown History Lancets) cyanocobalamin (vitamin B-12) 1,000 mcg PO DAILY 07/02/23 11/18/24 Unknown History 1,000 mcg tablet duloxetine 30 mg capsule,delayed 30 mg PO DAILY 1111/18/24 11/20/24 History release duloxetine 60 mg capsule,delayed 60 mg PO DAILY 07/02/23 11/18/24 11/20/24 History release finasteride 5 mg tablet 5 mg PO DAILY 07/02/23 11/18/24 Unknown History lisinopril 2.5 mg tablet 2.5 mg PO DAILY 07/02/23 11/18/24 Unknown History metformin 500 mg tablet,extended 500 mg PO ONCE 06/17/24 11/18/24 Unknown History release 24 hr baclofen 20 mg tablet 20 mg PO BID 09/01/24 11/18/24 11/20/24 History carbamazepine 400 mg 400 mg PO DAILY 09/01/24 11/18/24 Unknown History tablet,extended release,12 hr ibuprofen 600 mg tablet 600 mg PO Q6H PRN Pain 09/01/24 11/18/24 Unknown History naproxen 500 mg tablet 500 mg PO BID 09/01/24 11/18/24 Unknown History prazosin 2 mg capsule 2 mg PO BEDTIME 09/01/24 11/18/24 Unknown History quetiapine 50 mg tablet 50 - 100 mg PO BEDTIME 09/01/24 11/18/24 Unknown History Exam Airway Mallampati Class: II TM Dist: >3cm Neck ROM: Full Partial: Upper Heart: ok Lungs: ok Assessment and Plan Assessment Anesthesia Assessment: Anesthesia Plan Discussed Final Anesthetic Review NPO: Yes ASA Class: III Final Preanesthetic Review: No Changes in Pt Med Stat, Meds/Allgs Chart Reviewed, Consent Obtained/Reviewed and Anes Risks/Benef Reviewed Patient Risk: Intermediate Procedure Risk: Intermediate Anesthetic Plan Anesthetic Plan: GA and Agree w/ Assess. and Plan Disposition: Standard PACU
[2024-11-20] VITALS (8 sets, daily range): BP systolic 86–108; BP diastolic 51–70; PULSE 53–68; RESP 16–18; TEMP 36.2–36.4; O2SAT 96–98; BMI 23.8
--- NOTE | ~2024-11-20 | FL_ITS ---
EXAMINATION: FL GUIDANCE ONLY HISTORY: intrathecal pain pump placement COMPARISON: None available. TECHNIQUE: Fluoroscopy time: 37.9 seconds. Cumulative Dose: 10.094 mGy. DAP: 3.7390 mGym2 Images: 4. FINDINGS: Images demonstrate placement of a pump overlying the right iliac wing. FL/FL guidance in OR IMPRESSION: Fluoroscopy during procedure. Please see procedure report for additional information. Electronically signed by: Nehemias Quiñonez MD 11/20/2024 01:25 PM EDT
--- NOTE | 2024-11-20 09:50 | P.HPSUR_ITS ---
Pre-Procedural Eval Section A - 24 Hr Update-Section A only Date of Service: 11/20/24 The patient is an INPATIENT: No Changes since office visit: Yes Patient answered all questions The patient has been examined within 24 hours of the surgical procedure. The History & Physical has been completed within 30 days and I have reviewed it.: No Section B - Complete if H&P > 30 days Chief Complaint: Chronic pain syndrome Details of Present Illness: as above Relevant Family History (Specify if Yes): No Relevant Social History: None Present Medications: see Short Stay Collaborative assessment Medical History: No relevant PMH History of Previous Operations: No relevant previous surgery Allergies: Allergies Allergy/AdvReac Type Severity Reaction Status Date / Time linagliptin [From TRADJENTA] Allergy Intermediate RASH Verified 10/07/24 09:28 Krdjdho-LYG-BaZ Reductase Allergy Intermediate ITCHY,SKIN Verified 10/07/24 09:28 Inhibitor BREAKDOWN [KRAUGYY-MDR-MQM REDUCTASE INHIBITOR] Review of Systems Sugical H&P ROS: Negative: Constitution, Cardiovascular, Respiratory, Neurological, Psychiatric, Hem-Onc, Allergic/Immunologic, Gastrointestinal, G enitourinary, Integumentary and Eyes/Ears/Nose/Throat and Yes, Specify: Musculoskeletal (as above) and Endocrine (DM type II) Exam Surgical H&P Exam: Normal: HEENT, Normal: Heart, Normal: Lungs, Normal: Extremities, Normal: Abdomen, Normal: Skin and Normal: Neurological Plan Diagnosis/Plan: Unchanged I have reviewed the history and physical and performed a pertinent physical examination on my patient. No changes have occurred unless specified. Time Spent With Patient Time: Total time managing care of this patient today ___5_ minutes.
[2024-11-20] MEDS: Lactated Ringers 1,000 ML 100 ML IVCONT (10:13)
[2024-11-20] MEDS: ceFAZolin Sodium/Dextrose,Iso 2 GM/50 ML PIGGYBACK IV (10:20)
[2024-11-20 10:33] LABS: Glucose, Whole Blood 161 mg/dL (60-115)
--- NOTE | 2024-11-20 13:00 | P.BOP_ITS ---
Brief Operative Note Date of Service: 11/20/24 Pre-op diagnosis: Chronic pain syndrome Post-op diagnosis: same Procedure: Implantation of intrathecal drug delivery system pain pump with bupivacaine. Implants: SynchroMed 3 pain pump 20 mL and Ascenda intrathecal catheter. Surgeon: Jose R Maldonado MD Anesthesia: GETA Was an Hardwood Floor Finisher used for this Procedure?: No Estimated blood loss (mL): 18 Pathology: none sent Condition: stable Disposition: PACU
--- NOTE | 2024-11-20 13:03 | P.OP_ITS ---
Operative Note Operative Note Date of Service: 11/20/24 Narrative: Implantation of intrathecal drug delivery system pain pump Medtronic SynchroMed 3 and intrathecal catheter Ascenda. After obtaining informed consent and explaining to the patient risks, benefits and alternatives to treat his pain, the patient was brought up to the operating room where he was positioned supine on the stretcher.? [employer] monitors were applied and general anesthesia was induced with endotracheal intubation.? After that the patient was transferred to the operating table prone.? All pressure points protected.? The patient received antibiotic cefazolin 2 g intravenously 30 minutes before incision. Time-out was performed delineating correct site and side of the procedure, name and date of of the patient, risk of fire, need for antibiotic prophylaxis risk of DVT and need for DVT prophylaxis. ? After that the patient entire back was prepped with chloroprep and draped with full body drape including ioban film. Sterilely drape C-arm was brought over the OR field and square pictures of the L3-L4 vertebrae were demonstrated on the screen. the entrance point? for the catheter was chosen as the L3-L4 interspace. In the strict Midline fashion 6 cm vertical skin incision was made with #10 scalpel. The incision was widened with the Weitlaner retractor and deepened with electrocautery. Thorough hemostasis was obtained using electrocautery . The prevertebral fascia was freed from overlaying tissues. After that 100 mm introducer spinal 16 g needle was inserted under x-ray guidance in the projection of the right L4 pedicle. The needle advanced under the x-ray guidance with intemitteny A-P? and lateral views toward the spinal canal. When on the lateral view the needle entered the spinal canal the stylet was removed and the clear flow of the CSF was obtain through the needle hub. Intrathecal Ascenda catheter was inserted through the needle and advanced under the x-ray guidance toward the T9 vertebral body projection. The stylet was removed from the catheter and the flow of CSF fluid straw colored and clear was observed coming from the catheter.1-0 Tycron? Purse-string suture was applied surrounding? the a needle and it was tied.? After that the needle was withdrawn with care taken to keep the catheter in place.? Anchoring device was dislodged on the catheter and advanced until it met prevertebral fascia.? It was engaged on the body of the catheter.? Two anchoring Tycron sutures were used to suture left wing of the anchor to prevertebral fascia and 1 anchoring suture was used to stitch in the right wing of anchoring device to prevertebral fascia. ?After that the thorough irrigation of the wound was performed and wound was packed with vancomycin soaked 4 x 4. Attention then was concentrated on the patient's right buttock.? Sterilely draped C-arm was brought over the operative field again and position of the patient's iliac crest on the RIGHT was demonstrated on the screen.? Three cm below the projection of the iliac crest to the skin of the local anesthetic bupivacaine mixture with lidocaine 1-1 was injected in the linear horizontal fashion.? After that 11 cm incision was performed in patient's right buttock alongside the injected line.? Thorough hemostasis was obtained using cautery device and intermittent sutures. ? After that the wound was widened and made 2.5 cm deep .? The wound was extended medially and laterally as well as caudally and cranially to form the space to accommodate the body of the pump.? Thorough hemostasis was performed.? The wound was irrigated with vancomycin containing normal saline and then tunneling device was used to connect both wounds and dislodged the intrathecal catheter into the side wound.? The catheter was trimmed appropriately after that and sutureless connection device was mounted on the catheter.? After that sutureless connection device was connected to the pump.? Aspiration of the side port of the pump revealed clear flow of CSF.? Three 1-0 Tycron sutures were applied in most SUPERIOR LATERAL AND MOST INFERIOR LATERAL AND MEDIAL corners of the wound.? After that the sutures were connected to the brackets on the body of the pump, intrathecal catheter was gathered behind the body of the pump and pump was inserted into the wound.? After that the anchoring sutures were tied.? Thorough irrigation was performed again in both wounds.? Thorough hemostasis was verified.? 0-0 polisorb sutures were used to close both wounds, 2-0 suture of the same nature were used to approximate the skin.? [place] were applied to the skin level and Bacitracin ointment was applied to the staple lines.? Sterile dressing with sterile 4x4s was performed, abdominal binder was applied.? Upon completion of the procedure patient was awaken, extubated and taken outside of the operating room to recovery room where HE recovered uneventfully.?
[2024-11-20] MEDS: fentaNYL citrate/PF 100 MCG/2 ML VIAL 50 MCG IVPUSH (13:12)
[2024-11-20] MEDS: oxyCODONE HCl Immed Release 5 MG TABLET PO (13:14)
== END 2024-11-20 14:05 | disposition home or self-care (01) ==
PROVIDERS: PCP Internal Medicine; Visit Provider Anesthesiology
PROC: (CPT 62362; principal; 2024-11-20 10:50)
DX: M54.50 Low back pain, unspecified (principal); G89.4 Chronic pain syndrome; M25.552 Pain in left hip; M16.0 Bilateral primary osteoarthritis of hip; M53.3 Sacrococcygeal disorders, not elsewhere classified; Z79.1 Long term (current) use of non-steroidal anti-inflammatories (NSAID); Z79.84 Long term (current) use of oral hypoglycemic drugs; Z79.899 Other long term (current) drug therapy; Z88.8 Allergy status to other drugs, medicaments and biological substances; E11.9 Type 2 diabetes mellitus without complications; Z56.0 Unemployment, unspecified; M79.18 Myalgia, other site; Z98.1 Arthrodesis status
CPT/HCPCS: 62362; 62350; 82947; C1755; C1772; J0690; J2003; J2250; J2371; J2704; J2795; J3010; J3370

== ENCOUNTER → 2024-11-20 08:18 | Outpatient (BNV) | payer OTHER, SELFPAY | PROVIDERS: PCP Internal Medicine; Visit Provider Anesthesiology | DX: G89.4 Chronic pain syndrome (principal) | CPT/HCPCS: 62350; 62362 ==

== ENCOUNTER 2024-11-26 10:38 | Outpatient (AMB) | payer OTHER, SELFPAY ==
[2024-11-26 10:49] VITALS: BP 112/60; PULSE 80; O2SAT 98; BMI 23.9
--- NOTE | 2024-11-26 10:49 | MHC.OFFVIS ---
Vital Signs 11/26/24 10:49 Height 6 ft Weight 176 lb 2 oz BMI 23.9 BP 112/60 Blood Pressure Location Rt brachial Position Sitting Pulse 80 Pulse Source Pulse Oximeter Pulse Oximetry (%) 98 Oxygen Delivery Method Room Air Intake Visit Reasons: S/p ITDD Pain Pump Implant 11/20/24 Allergies linagliptin [From [facility]] Allergy (Intermediate, Verified 11/26/24 10:53) RASH Ghrkkgm-PPA-QdL Reductase Inhibitor [MPITEDF-GXZ-XIX REDUCTASE INHIBITOR] Allergy (Intermediate, Verified 11/26/24 10:53) ITCHY,SKIN BREAKDOWN HPI Comments Details: Linus is today in my office after implantation bupivacaine pain pump. The wounds are examined today. There is no swelling no pathological discharge no redness no tenderness on palpation. The wounds were washed with ChloraPrep sterile dressing using Tegaderm was applied. The patient will call the [employer] representatives and he will ask them to teach him how to apply PTM boluses for himself. I will meet the patient next time in the office and remove the trino.. a On the trial he received 2.5 mg of bupivacaine intrathecally. However he reported that for the several days after the injection of this dose of the bupivacaine he was able to walk without cane, he reported improved activities of daily living, he stated that he was able to shovel the snow on his front yard, he reports about 60% pain improvement after the injection. I will schedule him for implantation of intrathecal pain pump with bupivacaine. We need to order bupivacaine from [facility] for the procedure. Prior: Patient presents back to the office today 1 month status post lumbar trigger point injections. He reports no improvement in the pain since the injections. Today patient complaining of pain over left PSIS, worse with sitting for long periods of time, standing and lying on the affected side. Prior: Linus presents back to the office today for follow-up. He was last seen here 03/14/2023 where he underwent injection for greater trochanteric bursitis. He reports since the injection he has no longer having pain to the lateral thigh. Today he is complaining of pain to the left lower back. Previously had left SI joint fusion, he also has sacral nerve stimulator, the device is near the area of his pain. He is adamant that the pain is not related to the device. Pain is worse with moving, bending, twisting and palpation. He does not have any pain to the groin. He does report some radiation of the pain to his left thigh posteriorly Currently he is using THC for his pain Prior: Linus is a pleasant 52 year old male who presents back to the office for follow up left hip pain. Patient reports he was seen in the office last month for similar pain and was prescribed Tizanidine three times daily. States he tried but did not receive any relief with the muscle relaxer, he even tried taking 2 and 3 tabs at once with no help. He also went to the dispensary where he bought CBD cream but did not note any benefit with this either. Prior: Linus is very pleasant 52 years old gentleman who is in my office again with new complaint. He reports that pain with movement related to sacroiliac joint on the left with was addressed with left SI joint fusion performed on 09/07/2022 is not bothering him anymore. However he reports that 2 weeks ago experience pain in the left side of the lower back radiating to the left flank. He reports the pain is getting more severe his torso flexion and rotation. He has been implanted sacral nerve stimulation device near this area so the trigger point injections are potentially risky for disruption of the stimulating leads. It sound to me that the patient is suffering from myofascial pain syndrome. To begin his treatment I offered him to start him on muscle relaxant tizanidine 2 mg t.i.d.. If this does will help him minimally without side effects I will increase the doses of the tizanidine. We agreed that he will give us a call in couple of weeks and if pain is continue to bother him schedule yet 1 more appointment. Prior: ? He received bilateral sacroiliac joint injections diagnostic with ropivacaine and he had 100% pain relief for the 1st 7 hours after the injection. He received diagnostic injection on 08/07/2022.? [facility] Medical History History of COVID-19 Low back pain Peripheral neuropathy Arthritis Unintentional weight loss PTSD (post-traumatic stress disorder) Hematuria Left lower quadrant pain Urinary frequency Type 2 diabetes mellitus with unspecified complications Other obstructive and reflux uropathy Benign prostatic hyperplasia with lower urinary tract symptoms Urgency incontinence Hypercalcemia Surgical History S/P fusion of sacroiliac joint History of esophagogastroduodenoscopy (EGD) Anal fissure History of surgery Hx of cystoscopy Hx of cardiac catheterization History of prostate surgery Hx of cystoscopy Hx of cystoscopy H/O colonoscopy Social History Are you a primary medicare coordinator to a significant other at home: No Do you presently have visiting nurse or other home services: Yes ([employer] OF [employer]) Alcohol intake: never Patient Tobacco Use Status: Former Tobacco user Tobacco use type: Cigarette Second Hand Smoke Exposure: No Substance Use Type: Marijuana service: Yes Current occupational status: unemployed Current occupation: left handed Review of Systems Const All systems reviewed & are unremarkable except as noted in HPI and below Physical Exam Vital Signs: Last Vital Signs Pulse 80 11/26/24 10:49 BP 112/60 11/26/24 10:49 Pulse Ox 98 11/26/24 10:49 Oxygen Delivery Method Room Air 11/26/24 10:49 BMI result Body Mass Index 23.9 General: awake, alert, oriented. Answers questions appropriately. Fully engaged in examination. Skin: warm, dry, intact without visible rashes or lesions. HEENT: Normocephalic. Conjuntivae clear without exudate. Sclera non-icteric. Hearing intact. Cardiac: External chest normal in appearance. Respiratory: No signs of trauma. No signs of respiratory distress. No cough, audible wheezing or stridor. Abdomen: without gross distension. MS: Well-healed surgical scar left lower back Tenderness over left PSIS [place] positive on the left SI compression positive on the left TYRESE positive on the left Thigh thrust positive on the left Nontender over midline lumbar vertebrae and lumbar paraspinal muscles SLR negative bilaterally Neurological: Oriented to person, place, time and situation. Thought process intact. No gait abnormalities appreciated. Psychiatric: Appropriate mood and affect. Good judgment and insight. Assessment & Plan Assessment & Plan (1) Left hip pain: Code(s): M25.552 - Pain in left hip Category: Medical (2) Pain of both sacroiliac joints: Code(s): M53.3 - Sacrococcygeal disorders, not elsewhere classified Category: Medical (3) Osteoarthritis of hips, bilateral: Code(s): M16.0 - Bilateral primary osteoarthritis of hip Category: Medical (4) Chronic pain syndrome: Code(s): G89.4 - Chronic pain syndrome Category: Medical (5) Myofascial pain syndrome: Code(s): M79.18 - Myalgia, other site Category: Medical (6) Myofascial pain syndrome of lumbar spine: Code(s): M79.18 - Myalgia, other site Category: Medical (7) Sacroiliac joint dysfunction of left side: Code(s): M53.3 - Sacrococcygeal disorders, not elsewhere classified Category: Medical (8) S/P fusion of sacroiliac joint: Code(s): Z98.1 - Arthrodesis status Category: Surgical Plan The pain pump healing appropriately. The patient needs to get into contact with [employer] representatives to receive information on how to apply PTM boluses. I will remove trino next week. We will continue monitoring level of pain and action of the pain pump in the future. Coding Level of Care Code Est Pt Level 3 (07044) Diagnoses Left hip pain M25.552 Pain of both sacroiliac joints M53.3 Osteoarthritis of hips, bilateral M16.0 Chronic pain syndrome G89.4 Myofascial pain syndrome M79.18 Myofascial pain syndrome of lumbar spine M79.18 Sacroiliac joint dysfunction of left side M53.3 S/P fusion of sacroiliac joint Z98.1
--- OUTSIDE RECORDS SUMMARY | 2024-11-26 11:48 | XMS_ITS | Continuity of Care Document ---
Author Name [facility] Organization [facility] Care Team Providers Care Kindergartners Helper Name Role Phone [facility] Unavailable Unavailable Problems Combined list of problems from Department of Defense and Veterans Affairs facilities. It does not include entries that were removed or entered in error. Problem Status Onset Date Problem Type Date of Resolution Comments Source Abdominal pain Active Condition Jun 272020 Entered By: ERNESTO BARROW Comment: ABD Pain; Etio?Jul 19, 2021 Entered By: ERNESTO BARROW Comment: Sees Private [facility] Dr Melendrez [phone] [place] Benign hypertension Active Condition SP [facility] Benign prostatic hyperplasia Active Condition Jul 19, 2021 Entered By: ERNESTO BARROW Comment: Sees URO Every 3-4 Months for BPHJul 19, 2021 Entered By: ERNESTO BARROW Comment: Last Visit to Private URO was JUN 15:Jul 19, 2021 Entered By: ERNESTO BARROW Comment: Office Ultrasound Neg for Suspicious Lesions; No Heme on UA in JUN 15 [place] Depression Active Condition Jul 19 Entered By: ERNESTO BARROW Comment: Depression, Anxiety, PTSDJul 19, 2021 Entered By: ERNESTO BARROW Comment: Sees Private [facility] Dr. Suarez [phone] at [facility], 2021 Entered By: ERNESTO BARROW Comment: No SI / HINov 2020 Entered By: ERNESTO BARROW Comment: also Therapist Dr Green [facility] [phone] [place] Fibromyalgia Active Condition Jul 19, 2021 Entered By: ERNESTO BARROW Comment: Episodic Break-Throughs ; Severe when Sx Erupt; Affects Whole Body Jul 19, 2021 Entered By: ERNESTO BARROW Comment: Pain Management [place] [facility] [phone] [place] Gordon hematuria Active Condition Jul 19, 2021 Entered By: ERNESTO BARROW Comment: [facility] Sandhu [phone][facility] Entered By: ERNESTO BARROW Comment: Denies Renal, Bladder CA; No Lithiasis; +BPH as of JUL 16[place] Hypercholesterolemia Active Condition Jul 19, 2021 Entered By: ERNESTO BARROW Comment: h/o Elevated Lipids; On Crestor; Allergic to Other Statins [place] Overactive bladder Active Condition J 2021 Entered By: ERNESTO BARROW Comment: Sees URO; Gets Suprapubic BOTOX Inj.'s [place] Sciatica Active Condition Jul 19 Entered By: ERNESTO BARROW Comment: Discopathy, L-Spine; Radiates Left Leg, Down to LEFT Ankle [place] Screening for malignant neoplasm of colon done Active Condition Jul 19, 2021 Entered By: ERNESTO BARROW Comment: Initial Screen Colonoscopy 2020 at [facility];Jul 19, 2021 Entered By: ERNESTO BARROW Comment: Neg CRC or Polyps; repeat 2030 (sooner prn) [place] Shoulder pain Active Condition Jan Entered By: ERNESTO BARROW Comment: Left Shldr and L Elbow Pains: X-Rays [place] DEC 15 Unremarkable [place] Type 2 diabetes mellitus Active Condition Jul 19, 2021 Entered By: ERNESTO BARROW Comment: +Diabet Neuropathy Feet; Sees Neuro Outside [facility] 2020 Entered By: ERNESTO BARROW Comment: Private Neuro Dr Iris Quigley [facility] [phone] 2020 Entered By: ERNESTO BARROW Comment: on Carbamepazine, Lyrica, for NeuropathyJul 19, 2021 Entered By: ERNESTO BARROW Comment: Sees Private Ophth Once Yr (Month of Aug); no DR as of JUL 16 [place] Under care of doctor Active Condition Jul 19, 2021 Entered By: ERNESTO BARROW Comment: Private PCP Dr Melissa Quigley [facility] [phone] [place] Diagnosis: ICD-10-CM Z46.0 Encounter for fit/adjst of spectacles and contact lenses Active Diagnosis [facility] Diagnosis: ICD-10-CM E11.9 Type 2 diabetes mellitus without complications Active Diagnosis [facility] Medications Combined list of outpatient medications from Department of Defense and Veterans Affairs facilities.Medications provided include 1) outpatient medications from the last 15 months, and 2) patient-reported medications. Medication Details Route Status Patient Instructions Prescription Expires Prescription Number Last Dispense Date Ordering Provider Order Date Order Qty Source BACLOFEN 20MG TAB TAKE ONE TABLET BY MOUTH ONCE DAILY [facility] IELD BUPROPION HCL 300MG 24HR TAB,SA TAKE ONE TABLET BY MOUTH ONCE DAILY [facility] 2021 [facility] IELD CARBAMAZEPI NE 200MG TAB TAKE ONE TABLET BY MOUTH ONCE DAILY [facility] 2021 [facility] IELD CLONAZEPAM 0.5MG TAB TAKE ONE TABLET BY MOUTH BEDTIME [facility] 2021 [facility] IELD CYANOCOBALA MIN 100MCG TAB TAKE ONE TABLET BY MOUTH ONCE DAILY [facility] 2020 [facility] IELD DULOXETINE HCL 30MG CAP,EC TAKE 3 CAPSULES BY MOUTH ONCE DAILY ORAL ACTIVE [facility] 2021 [facility] IELD LISINOPRIL 2.5MG TAB TAKE ONE TABLET BY MOUTH ONCE DAILY ORAL ACTIVE [facility] 2020 [facility] IELD METFORMIN HCL 1000MG TAB TAKE ONE TABLET BY MOUTH TWICE DAILY ORAL [facility] 2021 [facility] IELD NAPROXEN 500MG TAB TAKE ONE TABLET BY MOUTH TWICE DAILY NEEDED ORAL [facility] 2021 [facility] IELD OTHER CAP/TAB TAKE LYRICA 300 MG BY MOUTH TWICE DAILY [facility] 2021 [facility] IELD QUETIAPINE FUMARATE 25MG TAB TAKE ONE TABLET BY MOUTH BEDTIME ORAL [facility] 2020 [facility] IELD ROSUVASTATI N CA 20MG TAB TAKE ONE-HALF TABLET BY MOUTH ONCE DAILY ORAL ACTIVE [facility] 2020 [facility] IELD SITAGLIPTIN PHOSPHATE 100MG TAB TAKE ONE TABLET BY MOUTH ONCE DAILY ORAL ACTIVE [facility] IELD TAMSULOSIN HCL 0.4MG CAP TAKE 1 CAPSULE BY MOUTH BEDTIME ORAL [facility] 2020 [facility] IELD Allergies, Adverse Reactions, Alerts Combined list of allergies from Department of Defense and Veterans Affairs facilities. It does not include entries that were removed or entered in error. Substance Category Reaction Severity Reaction type Status Date Reported Comments Source [place] Propensity to adverse reactions to drug (finding) Urticaria active 1 [facility] ZOCOR Propensity to adverse reactions to drug (finding) Low blood pressure, Muscle pain active 1 [facility] Immunizations Combined list of available immunizations from the Department of Defense and Veterans Affairs facilities. Immunization Series Date Given Administered By Site Reaction Lot Number CVX Code Drug Vegetable Preparer Status Comments Source INFLUENZA, UNSPECIFIED FORMULATION 2022 88 complet ed [facility] COVID-19 (MODERNA), MRNA, LNP-S, BIVALENT, PF, 50 MCG/0.5 ML OR 25MCG/0.25 ML DOSE 1 2022 229 complet ed [facility] COVID-19 (PFIZER), MRNA, LNP-S, PF, 30 MCG/0.3 ML DOSE 3 2021 208 complet ed [facility] PNEUMOCOCCAL POLYSACCHARID E PPV23 2021 33 complet ed [place] ZOSTER RECOMBINANT 2 2021 187 complet ed [place] TDAP 2020 115 complet ed [facility] ZOSTER RECOMBINANT 1 2020 187 complet ed [facility] INFLUENZA, UNSPECIFIED FORMULATION 2020 88 complet ed [facility] COVID-19 (PFIZER), MRNA, LNP-S, PF, 30 MCG/0.3 ML DOSE 2 2020 208 complet ed [facility] COVID-19 (PFIZER), MRNA, LNP-S, PF, 30 MCG/0.3 ML DOSE 1 2020 208 complet ed [facility] Encounters Combined list of: 1) Encounters from Department of Veterans Affairs facilities going backup to the last 18 months, not all VA inpatient encounters are included; 2) Encounters from the Department of Defense facilities going backup to 280 months. Location Location Details Encounter Type Encounter Number Reason For Visit Attending Provider ADM Date DC Date Status Disposition Source [facility] EYE EXAM&TX ESTAB PT 1/>VST [id number] Diagnos is: ICD-10- CM E11.9 Type 2 diabete s mellitu s without complic ations COLEMAN ORTIZ 06/13 [facility] CPTR OPHTH DX IMG POST SEGMT [id number] Diagnos is: ICD-10- CM E11.9 Type 2 diabete s mellitu s without complic ations COLEMAN ORTIZ 06/13 [facility] Outpatient Encounter [id number] 06/13 [facility] FIT SPECTACLES MULTIFOCAL [id number] Diagnos is: ICD-10- CM Z46.0 Encount er for fit/adj st of spectac les and contact lenses MARLY FORRESTER 06/13 [facility] Outpatient Encounter [id number] 09/30 [facility] [place] Outpatient Encounter [id number] 10/09 [place] [facility] Outpatient Encounter [id number] 10/09 [facility] En[facility] [id number] 10/10 [facility] Encounter [id number] 12/01 [facility] [id number] 12/01 [facility] En[facility] [id number] 12/03 [facility] [id number] 12/23 [facility] [id number] 12/23 [facility] En[facility] [id number] 01/06 [facility] [id number] 01/09 [facility] [id number] 07/01 [facility] Social History Combined list of available smoking, tobacco, and other social history from Department of Defense and Veterans Affairs facilities. Social History Type Response Date Comment Sour e Tobacco smoking status [facility]-TO[facility]ACCO FORMER USER 10/09/2023 [place] History of tobacco use [place]-TOBACCO QUIT 15 YRS OR MORE 10/09/2023 [place] History of tobacco use [place]-TOBACCO FORMER USER 07/19/2021 [facility] Advance Directives List of completed, amended, or rescinded Advance Directives on record at Department of Veterans Affairs facilities. An actual copy of the Directive is not included. Date Advance Directive Provider Source 09/20/2021 ADVANCE DIRECTIVE RADHA MADERA 07/14/2021 ADVANCE DIRECTIVE RADHA MADERA
== END 2024-11-26 11:06 | disposition home or self-care (01) ==
LOC: HO.PMC 10:38
PROVIDERS: PCP Internal Medicine; Visit Provider Anesthesiology
DX: M25.552 Pain in left hip (principal); M53.3 Sacrococcygeal disorders, not elsewhere classified; M16.0 Bilateral primary osteoarthritis of hip; G89.4 Chronic pain syndrome; M79.18 Myalgia, other site; Z98.1 Arthrodesis status
CPT/HCPCS: 99024

== ENCOUNTER → 2024-11-26 10:38 | Outpatient (BNVA) | payer OTHER, SELFPAY | PROVIDERS: PCP Internal Medicine; Visit Provider Anesthesiology | DX: M53.3 Sacrococcygeal disorders, not elsewhere classified (principal); M25.552 Pain in left hip; M16.0 Bilateral primary osteoarthritis of hip; G89.4 Chronic pain syndrome; M79.18 Myalgia, other site; Z96.89 Presence of other specified functional implants; Z98.1 Arthrodesis status; Z79.899 Other long term (current) drug therapy | CPT/HCPCS: 99212 ==

== ENCOUNTER 2024-12-02 13:38 | Outpatient (AMB) | payer OTHER, SELFPAY ==
[2024-12-02 13:41] VITALS: BP 109/66; PULSE 85; RESP 16; O2SAT 100; BMI 23.9
--- NOTE | 2024-12-02 13:41 | A.OFFVIS_ITS ---
Vital Signs 12/02/24 13:41 Height 6 ft Weight 176 lb BMI 23.9 BP 109/66 Blood Pressure Location Lt brachial Position Sitting Respiration 16 Pulse 85 Pulse Source Pulse Oximeter Pulse Oximetry (%) 100 Oxygen Delivery Method Room Air Intake Visit Reasons: S/p ITDD Pain Pump Implant 11/20/24 (2nd Visit) Galvanizer Required: No Allergies linagliptin [From [place]] Allergy (Intermediate, Verified 12/02/24 13:48) RASH Rukeifn-XPD-XzQ Reductase Inhibitor [IUYTHLP-VJH-QKE REDUCTASE INHIBITOR] Allergy (Intermediate, Verified 12/02/24 13:48) ITCHY,SKIN BREAKDOWN Medication List - Last Reconciled 12/02/24 by Marisa Sigala LPN baclofen 20 mg PO BID blood sugar diagnostic As directed blood-glucose meter As directed bupropion HCl XL 300 mg PO QAM carbamazepine ER 400 mg PO DAILY cyanocobalamin (vitamin B-12) 1,000 mcg PO DAILY cyclobenzaprine 5 mg PO TID PRN docusate sodium 200 mg (2 x 100 mg) PO BEDTIME duloxetine 60 mg PO DAILY duloxetine 30 mg PO DAILY finasteride 5 mg PO DAILY ibuprofen 600 mg PO Q6H PRN lamotrigine 200 mg PO BID lancets (FreeStyle Lancets) As directed lisinopril 2.5 mg PO DAILY metformin ER 500 mg PO ONCE naproxen 500 mg PO BID oxycodone 5 mg PO Q6H PRN 8 days prazosin 2 mg PO BEDTIME pregabalin 300 mg PO BID psyllium husk (Metamucil) 1 tbsp PO DAILY quetiapine 50 - 100 mg PO BEDTIME tamsulosin 0.4 mg PO BEDTIME 90 days HPI Comments Details: Linus is today in my office after implantation bupivacaine pain pump. The wounds are examined today. There is no swelling no pathological discharge no redness no tenderness on palpation. The wounds were washed with ChloraPrep, mikel removed and sterile dressing using Tegaderm was applied. The patient experienced dizziness and numbness in bilateral lower extremities after application of the bolus. I today interrogated the pain pump and increase the amount of time that all bolus will be administered to the patient. Instead of 31 minutes the patient will receive bolus of the course of 1 hour and 5 minutes. I also recommended patient to assume horizontal positioned when boluses administered to him. I also recommend patient to continue to were abdominal binder for the next 6 weeks 18/03 without changes. On the trial he received 2.5 mg of bupivacaine intrathecally. However he reported that for the several days after the injection of this dose of the bupivacaine he was able to walk without cane, he reported improved activities of daily living, he stated that he was able to shovel the snow on his front yard, he reports about 60% pain improvement after the injection. I will schedule him for implantation of intrathecal pain pump with bupivacaine. We need to order bupivacaine from [facility] compounding pharmacy for the procedure. Prior: Patient presents back to the office today 1 month status post lumbar trigger point injections. He reports no improvement in the pain since the injections. Today patient complaining of pain over left PSIS, worse with sitting for long periods of time, standing and lying on the affected side. Prior: Linus presents back to the office today for follow-up. He was last seen here 03/14/2023 where he underwent injection for greater trochanteric bursitis. He reports since the injection he has no longer having pain to the lateral thigh. Today he is complaining of pain to the left lower back. Previously had left SI joint fusion, he also has sacral nerve stimulator, the device is near the area of his pain. He is adamant that the pain is not related to the device. Pain is worse with moving, bending, twisting and palpation. He does not have any pain to the groin. He does report some radiation of the pain to his left thigh posteriorly Currently he is using THC for his pain Prior: Linus is a pleasant 52 year old male who presents back to the office for follow up left hip pain. Patient reports he was seen in the office last month for similar pain and was prescribed Tizanidine three times daily. States he tried but did not receive any relief with the muscle relaxer, he even tried taking 2 and 3 tabs at once with no help. He also went to the dispensary where he bought CBD cream but did not note any benefit with this either. Prior: Linus is very pleasant 52 years old gentleman who is in my office again with new complaint. He reports that pain with movement related to sacroiliac joint on the left with was addressed with left SI joint fusion performed on 09/07/2022 is not bothering him anymore. However he reports that 2 weeks ago experience pain in the left side of the lower back radiating to the left flank. He reports the pain is getting more severe his torso flexion and rotation. He has been implanted sacral nerve stimulation device near this area so the trigger point injections are potentially risky for disruption of the stimulating leads. It sound to me that the patient is suffering from myofascial pain syndrome. To begin his treatment I offered him to start him on muscle relaxant tizanidine 2 mg t.i.d.. If this does will help him minimally without side effects I will increase the doses of the tizanidine. We agreed that he will give us a call in couple of weeks and if pain is continue to bother him schedule yet 1 more appointment. Prior: ? He received bilateral sacroiliac joint injections diagnostic with ropivacaine and he had 100% pain relief for the 1st 7 hours after the injection. He received diagnostic injection on 08/07/2022.? [facility] Medical History History of COVID-19 Low back pain Peripheral neuropathy Arthritis Unintentional weight loss PTSD (post-traumatic stress disorder) Hematuria Left lower quadrant pain Urinary frequency Type 2 diabetes mellitus with unspecified complications Other obstructive and reflux uropathy Benign prostatic hyperplasia with lower urinary tract symptoms Urgency incontinence Hypercalcemia Surgical History S/P fusion of sacroiliac joint History of esophagogastroduodenoscopy (EGD) Anal fissure History of surgery Hx of cystoscopy Hx of cardiac catheterization History of prostate surgery Hx of cystoscopy Hx of cystoscopy H/O colonoscopy Social History Are you a primary animal care taker to a significant other at home: No Do you presently have visiting nurse or other home services: Yes ([employer]) Alcohol intake: never Patient Tobacco Use Status: Former Tobacco user Tobacco use type: Cigarette Second Hand Smoke Exposure: No Substance Use Type: Marijuana service: Yes Current occupational status: unemployed Current occupation: left handed Review of Systems Const All systems reviewed & are unremarkable except as noted in HPI and below Physical Exam Vital Signs: Last Vital Signs Pulse 85 12/02/24 13:41 Resp 16 12/02/24 13:41 BP 109/66 12/02/24 13:41 Pulse Ox 100 12/02/24 13:41 Oxygen Delivery Method Room Air 12/02/24 13:41 BMI result Body Mass Index 23.9 General: awake, alert, oriented. Answers questions appropriately. Fully engaged in examination. Skin: warm, dry, intact without visible rashes or lesions. HEENT: Normocephalic. Conjuntivae clear without exudate. Sclera non-icteric. Hearing intact. Cardiac: External chest normal in appearance. Respiratory: No signs of trauma. No signs of respiratory distress. No cough, audible wheezing or stridor. Abdomen: without gross distension. MS: Well-healed surgical scar left lower back Tenderness over left PSIS Ga[place] positive on the left SI compression positive on the left TYRESE positive on the left Thigh thrust positive on the left Nontender over midline lumbar vertebrae and lumbar paraspinal muscles SLR negative bilaterally Neurological: Oriented to person, place, time and situation. Thought process intact. No gait abnormalities appreciated. Psychiatric: Appropriate mood and affect. Good judgment and insight. Assessment & Plan Assessment & Plan (1) Left hip pain: Code(s): M25.552 - Pain in left hip Category: Medical (2) Pain of both sacroiliac joints: Code(s): M53.3 - Sacrococcygeal disorders, not elsewhere classified Category: Medical (3) Osteoarthritis of hips, bilateral: Code(s): M16.0 - Bilateral primary osteoarthritis of hip Category: Medical (4) Chronic pain syndrome: Code(s): G89.4 - Chronic pain syndrome Category: Medical (5) Myofascial pain syndrome: Code(s): M79.18 - Myalgia, other site Category: Medical (6) Myofascial pain syndrome of lumbar spine: Code(s): M79.18 - Myalgia, other site Category: Medical (7) Sacroiliac joint dysfunction of left side: Code(s): M53.3 - Sacrococcygeal disorders, not elsewhere classified Category: Medical (8) S/P fusion of sacroiliac joint: Code(s): Z98.1 - Arthrodesis status Category: Surgical Plan The pain pump healing appropriately. The mikel were removed today. The intrathecal pain pump was interrogated and the bolus time administration was increased to 1 hour 5 minutes. That was done because patient was complaining on dizziness and numbness of bilateral lower extremities with administration of the bolus. Mikel removed today. Dressing was applied. Hygiene limitations were explained. He has to continue to wear abdominal binder for the next 6 weeks. Coding Level of Care Code Est Pt Level 3 (16705) Diagnoses Left hip pain M25.552 Pain of both sacroiliac joints M53.3 Osteoarthritis of hips, bilateral M16.0 Chronic pain syndrome G89.4 Myofascial pain syndrome M79.18 Myofascial pain syndrome of lumbar spine M79.18 Sacroiliac joint dysfunction of left side M53.3 S/P fusion of sacroiliac joint Z98.1
--- OUTSIDE RECORDS SUMMARY | 2024-12-02 15:48 | XMS_ITS | Continuity of Care Document ---
Author Name [facility] Organization [facility] Care Team Providers Care Butcher Scullion Name Role Phone [facility] Unavailable Unavailable Problems Combined list of problems from Department of Defense and Veterans Affairs facilities. It does not include entries that were removed or entered in error. Problem Status Onset Date Problem Type Date of Resolution Comments Source Abdominal pain Active Condition Jun 272020 Entered By: ERNESTO BARROW Comment: ABD Pain; Etio?Jul 19, 2021 Entered By: ERNESTO BARROW Comment: [facility]es [facility] Melendrez [phone] [place] Benign hypertension Active Condition [facility] Benign prostatic hyperplasia Active Condition Jul 19, 2021 Entered By: ERNESTO BARROW Comment: Sees URO Every 3-4 Months for BPHJul 19, 2021 Entered By: ERNESTO BARROW Comment: Last Visit to Private [facility]RO was JUN 15:Jul 19, 2021 Entered By: ERNESTO BARROW Comment: Office Ultrasound Neg for Suspicious Lesions; No Heme on UA in JUN 15 [place] Depression Active Condition Jul 19 Entered By: ERNESTO BARROW Comment: Depression, Anxiety, PTSDJul 19, 2021 Entered By: ERNESTO BARROW Comment: Sees Private [facility] Dr. Suarez [phone] at [facility] 2021 Entered By: ERNESTO BARROW Comment: No SI / HINov 2020 Entered By: ERNESTO BARROW Comment: also Therapist Dr Green [facility] [phone] [place] Fibromyalgia Active Condition Jul 19, 2021 Entered By: ERNESTO BARROW Comment: Episodic Break-Throughs ; Severe when Sx Erupt; Affects Whole Body Jul 19, 2021 Entered By: ERNESTO BARROW Comment: [place] [facility] [phone] [place] hematuria Active Condition Jul 19, 2021 Entered By: ERNESTO BARROW Comment: [facility] Sandhu [phone][facility] Entered By: ERNESTO BARROW Comment: Denies Renal, Bladder CA; No Lithiasis; +BPH as of JUL 16springBAM Hypercholesterolemia Active Condition Jul 19, 2021 Entered By: ERNESTO BARROW Comment: h/o Elevated Lipids; On Crestor; Allergic to Other Statins [place] Overactive bladder Active Condition J 2021 Entered By: ERNESTO BARROW Comment: Sees URO; Gets Suprapubic BOTOX Inj.'s [place] Sciatica Active Condition Jul 19 Entered By: ERNESTO BARROW Comment: Discopathy, L-Spine; Radiates Left Leg, Down to LEFT Ankle [place] Screening for malignant neoplasm of colon done Active Condition Jul 19, 2021 Entered By: ERNESTO BARROW Comment: Initial Screen Colonoscopy 2020 at [facility];Jul 19, 2021 Entered By: ERNESTO BARROW Comment: Neg CRC or Polyps; repeat 2030 (sooner prn) [place] Shoulder pain Active Condition Jan Entered By: ERNESTO BARROW Comment: Left Shldr and L Elbow Pains: X-Rays [facility] DEC 15 Unremarkable [place] Type 2 diabetes mellitus Active Condition Jul 19, 2021 Entered By: ERNESTO BARROW Comment: +Diabet Neuropathy Feet; Sees Neuro Outside [facility] 2020 Entered By: ERNESTO BARROW Comment: Private Neuro Dr Iris Quig[facility] [phone] 2020 Entered By: ERNESTO BARROW Comment: on Carbamepazine, Lyrica, for NeuropathyJul 19, 2021 Entered By: ERNESTO BARROW Comment: Sees Private Ophth Once Yr (Month of Aug); no DR as of JUL 16 [place] Under care of doctor Active Condition Jul 19, 2021 Entered By: ERNESTO BARROW Comment: Private PCP Dr Melissa Quig[facility] [phone] [place] Diagnosis: ICD-10-CM Z46.0 Encounter for fit/adjst of spectacles and contact lenses Active Diagnosis [facility] Diagnosis: ICD-10-CM E11.9 Type 2 diabetes mellitus without complications Active Diagnosis [facility] Medications Combined list of outpatient medications from Department of Defense and Veterans Affairs facilities.Medications provided include 1) outpatient medications from the last 15 months, and 2) patient-reported medications. Medication Details Route Status Patient Instructions Prescription Expires Prescription Number Last Dispense Date Ordering Provider Order Date Order Qty Source BACLOFEN 20MG TAB TAKE ONE TABLET BY MOUTH ONCE DAILY [facility] IELD BUPROPION HCL 300MG 24HR TAB,SA TAKE ONE TABLET BY MOUTH ONCE DAILY [facility] 2021 [facility] IELD CARBAMAZEPI NE 200MG TAB TAKE ONE TABLET BY MOUTH ONCE DAILY [facility] 2021 [facility] IELD CLONAZEPAM 0.5MG TAB TAKE ONE TABLET BY MOUTH BEDTIME [facility] 2021 [facility] IELD CYANOCOBALA MIN 100MCG TAB TAKE ONE TABLET BY MOUTH ONCE DAILY [facility] IELD DULOXETINE HCL 30MG CAP,EC TAKE 3 CAPSULES BY MOUTH ONCE DAILY ORAL [facility]IVE [facility] 2021 [facility] IELD LISINOPRIL 2.5MG TAB TAKE ONE TABLET BY MOUTH ONCE DAILY ORAL [facility] 2020 [facility] IELD METFORMIN HCL 1000MG TAB TAKE ONE TABLET BY MOUTH TWICE DAILY ORAL [facility] 2021 [facility] IELD NAPROXEN 500MG TAB TAKE ONE TABLET BY MOUTH TWICE DAILY NEEDED ORAL [facility] 2021 [facility] IELD OTHER CAP/TAB TAKE LYRICA 300 MG BY MOUTH TWICE DAILY [facility] 2021 [facility] IELD QUETIAPINE FUMARATE 25MG TAB TAKE ONE TABLET BY MOUTH BEDTIME ORAL [facility] 2020 [facility] IELD ROSUVASTATI N CA 20MG TAB TAKE ONE-HALF TABLET BY MOUTH ONCE DAILY ORAL [facility]IVE [facility] 2020 [facility] IELD SITAGLIPTIN PHOSPHATE 100MG TAB TAKE ONE TABLET BY MOUTH ONCE DAILY ORAL [facility]IVE [facility] 2021 [facility] IELD TAMSULOSIN HCL 0.4MG CAP TAKE 1 CAPSULE BY MOUTH BEDTIME ORAL [facility] 2020 [facility] IELD Allergies, Adverse Reactions, Alerts Combined list of allergies from Department of Defense and Veterans Affairs facilities. It does not include entries that were removed or entered in error. Substance Category Reaction Severity Reaction type Status Date Reported Comments Source [place] Propensity to adverse reactions to drug (finding) Urticaria active 1 [facility] ZOCOR Propensity to adverse reactions to drug (finding) Low blood pressure, Muscle pain active 1 [facility] Immunizations Combined list of available immunizations from the Department of Defense and Veterans Affairs facilities. Immunization Series Date Given Administered By Site Reaction Lot Number CVX Code Drug Blow Molding Machine Tender Status Comments Source INFLUENZA, UNSPECIFIED FORMULATION 2022 88 complet ed [facility] COVID-19 (MODERNA), MRNA, LNP-S, BIVALENT, PF, 50 MCG/0.5 ML OR 25MCG/0.25 ML DOSE 1 2022 229 complet ed [facility] COVID-19 (PFIZER), MRNA, LNP-S, PF, 30 MCG/0.3 ML DOSE [address] [facility] PNEUMOCOCCAL POLYSACCHARID E PPV23 [...] ML DOSE [address] [facility] COVID-19 (PFIZER), MRNA, LNP-S, PF, 30 MCG/0.3 ML DOSE 1 [address] [facility] Encounters Combined list of: 1) Encounters from Department of Veterans Affairs facilities going backup to the last 18 months, not all VA inpatient encounters are included; 2) Encounters from the Department of Defense facilities going backup to 280 months. Location Location Details Encounter Type Encounter Number Reason For Visit Attending Provider ADM Date DC Date Status Disposition Source [facility] EYE EXAM&TX ESTAB PT 1/>VST [id number] Diagnos is: ICD-10- CM E11.9 Type 2 diabete s mellitu s without complic ations COLEMAN ORTIZ 06/13 [facility] CPTR OPHTH DX IMG POST SEGMT [id number] Diagnos is: ICD-10- CM E11.9 Type 2 diabete s mellitu s without complic ations COLEMAN ORTIZ 06/13 [facility] Outpatient Encounter [id number] 06/13 [facility] FIT SPECTACLES MULTIFOCAL [id number] Diagnos is: ICD-10- CM Z46.0 Encount er for fit/adj st of spectac les and contact lenses MARLY FORRESTER 06/13 [facility] Outpatient Encounter [id number] 09/30 [facility] [place] Outpatient Encounter [id number] 10/09 [place] [facility] Outpatient Encounter [id number] 10/09 [facility] En[facility] [id number] 10/10 [facility] En[facility] [id number] 12/01 [facility] [id number] 12/01 [facility] En[facility] [id number] 12/03 [facility] En[facility] [id number] 12/23 [facility] En[facility] [id number] 12/23 [facility]counter [id number] 01/06 [facility] [id number] 01/09 [facility] En[facility] [id number] 07/01 [facility] Social History Combined list of available smoking, tobacco, and other social history from Department of Defense and Veterans Affairs facilities. Social History Type Response Date Comment Sour e Tobacco smoking status [facility]-TOBACCO FORMER USER 10/09/2023 [place] History of tobacco use [facility]-TOBACCO QUIT 15 YRS OR MORE 10/09/2023 [place] History of tobacco use [facility]-TOBACCO FORMER USER 07/19/2021 [facility] Advance Directives List of completed, amended, or rescinded Advance Directives on record at Department of Veterans Affairs facilities. An actual copy of the Directive is not included. Date Advance Directive Provider Source 09/20/2021 ADVANCE DIRECTIVE RADHA MADERA 07/14/2021 ADVANCE DIRECTIVE RADHA MADERA
== END 2024-12-02 14:05 | disposition home or self-care (01) ==
PROVIDERS: PCP Internal Medicine; Visit Provider Anesthesiology
DX: M25.552 Pain in left hip (principal); M53.3 Sacrococcygeal disorders, not elsewhere classified; M16.0 Bilateral primary osteoarthritis of hip; G89.4 Chronic pain syndrome; M79.18 Myalgia, other site; Z98.1 Arthrodesis status
CPT/HCPCS: 99213

== ENCOUNTER → 2024-12-02 13:38 | Outpatient (BNVA) | payer OTHER, SELFPAY | PROVIDERS: PCP Internal Medicine; Visit Provider Anesthesiology | DX: Z45.1 Encounter for adjustment and management of infusion pump (principal); M25.552 Pain in left hip; M53.3 Sacrococcygeal disorders, not elsewhere classified; M16.0 Bilateral primary osteoarthritis of hip; M79.18 Myalgia, other site; G89.4 Chronic pain syndrome; Z98.1 Arthrodesis status; Z79.891 Long term (current) use of opiate analgesic | CPT/HCPCS: 99212 ==

== ENCOUNTER 2025-01-11 12:15 | Outpatient (AMB) | payer OTHER, SELFPAY ==
--- NOTE | 2025-01-11 12:32 | MHC.OFFVIS ---
Vital Signs 01/11/25 13:53 Height 6 ft Weight 171 lb BMI 23.2 BP 108/66 Blood Pressure Location Lt brachial Position Sitting Pulse 88 Pulse Source Pulse Oximeter Pulse Oximetry (%) 94 Oxygen Delivery Method Room Air Intake Visit Reasons: ITDD REFILL Access Assoc Required: No Allergies linagliptin [From [place]] Allergy (Intermediate, Verified 01/11/25 13:53) RASH Mcvuzya-SHV-VzF Reductase Inhibitor [EJFIIQL-NLW-ODA REDUCTASE INHIBITOR] Allergy (Intermediate, Verified 01/11/25 13:53) ITCHY,SKIN BREAKDOWN HPI Comments Details: Linus is today in my office for the intrathecal pain pump refill. He reports excellent pain relief. He reports good mobility excellent activities of daily living, very good social interactions. He reports that 1 dose of PTM lasts him as much as 6-7 hours. He requests me to increase the dose of the PTM a little bit. I will increase the dose of the PTM today for the patient. He is very satisfied with the treatment. see the full pump refill as below. His next pump refill will be in 28 days, to extend the time between the refills I will double the dose of the intrathecal medication from 5 mg per mL to 10 milligram/mL of preservative-free solution of bupivacaine. Prior: Linus presents back to the office today for follow-up. He was last seen here 03/14/2023 where he underwent injection for greater trochanteric bursitis. He reports since the injection he has no longer having pain to the lateral thigh. Today he is complaining of pain to the left lower back. Previously had left SI joint fusion, he also has sacral nerve stimulator, the device is near the area of his pain. He is adamant that the pain is not related to the device. Pain is worse with moving, bending, twisting and palpation. He does not have any pain to the groin. He does report some radiation of the pain to his left thigh posteriorly Currently he is using THC for his pain Prior: Linus is very pleasant 52 years old gentleman who is in my office again with new complaint. He reports that pain with movement related to sacroiliac joint on the left with was addressed with left SI joint fusion performed on 09/07/2022 is not bothering him anymore. However he reports that 2 weeks ago experience pain in the left side of the lower back radiating to the left flank. He reports the pain is getting more severe his torso flexion and rotation. He has been implanted sacral nerve stimulation device near this area so the trigger point injections are potentially risky for disruption of the stimulating leads. It sound to me that the patient is suffering from myofascial pain syndrome. To begin his treatment I offered him to start him on muscle relaxant tizanidine 2 mg t.i.d.. If this does will help him minimally without side effects I will increase the doses of the tizanidine. We agreed that he will give us a call in couple of weeks and if pain is continue to bother him schedule yet 1 more appointment. Prior: ? He received bilateral sacroiliac joint injections diagnostic with ropivacaine and he had 100% pain relief for the 1st 7 hours after the injection. He received diagnostic injection on 08/07/2022.? [facility] Medical History History of COVID-19 Low back pain Peripheral neuropathy Arthritis Unintentional weight loss PTSD (post-traumatic stress disorder) Hematuria Left lower quadrant pain Urinary frequency Type 2 diabetes mellitus with unspecified complications Other obstructive and reflux uropathy Benign prostatic hyperplasia with lower urinary tract symptoms Urgency incontinence Hypercalcemia Surgical History S/P fusion of sacroiliac joint History of esophagogastroduodenoscopy (EGD) Anal fissure History of surgery Hx of cystoscopy Hx of cardiac catheterization History of prostate surgery Hx of cystoscopy Hx of cystoscopy H/O colonoscopy Social History Are you a primary manager career to a significant other at home: No Do you presently have visiting nurse or other home services: Yes ([employer]) Alcohol intake: never Patient Tobacco Use Status: Former Tobacco user Tobacco use type: Cigarette Second Hand Smoke Exposure: No Substance Use Type: Marijuana service: Yes Current occupational status: unemployed Current occupation: left handed Review of Systems Const All systems reviewed & are unremarkable except as noted in HPI and below Physical Exam Vital Signs: Last Vital Signs Pulse 88 01/11/25 13:53 BP 108/66 01/11/25 13:53 Pulse Ox 94 01/11/25 13:53 Oxygen Delivery Method Room Air 01/11/25 13:53 BMI result Body Mass Index 23.2 General: awake, alert, oriented. Answers questions appropriately. Fully engaged in examination. Skin: warm, dry, intact without visible rashes or lesions. HEENT: Normocephalic. Conjuntivae clear without exudate. Sclera non-icteric. Hearing intact. Cardiac: External chest normal in appearance. Respiratory: No signs of trauma. No signs of respiratory distress. No cough, audible wheezing or stridor. Abdomen: without gross distension. MS: Well-healed surgical scar left lower back Tenderness over left PSIS Gaenslen positive on the left SI compression positive on the left TYRESE positive on the left Thigh thrust positive on the left Nontender over midline lumbar vertebrae and lumbar paraspinal muscles SLR negative bilaterally Neurological: Oriented to person, place, time and situation. Thought process intact. No gait abnormalities appreciated. Psychiatric: Appropriate mood and affect. Good judgment and insight. Assessment & Plan Assessment & Plan (1) Left hip pain: Code(s): M25.552 - Pain in left hip Category: Medical (2) Pain of both sacroiliac joints: Code(s): M53.3 - Sacrococcygeal disorders, not elsewhere classified Category: Medical (3) Osteoarthritis of hips, bilateral: Code(s): M16.0 - Bilateral primary osteoarthritis of hip Category: Medical (4) Chronic pain syndrome: Code(s): G89.4 - Chronic pain syndrome Category: Medical (5) Myofascial pain syndrome: Code(s): M79.18 - Myalgia, other site Category: Medical (6) Myofascial pain syndrome of lumbar spine: Code(s): M79.18 - Myalgia, other site Category: Medical (7) Sacroiliac joint dysfunction of left side: Code(s): M53.3 - Sacrococcygeal disorders, not elsewhere classified Category: Medical (8) S/P fusion of sacroiliac joint: Code(s): Z98.1 - Arthrodesis status Category: Surgical Plan: Intrathecal pump refill. THE PATIENT CAME TODAY IN THE office FOR THE CHANGE OF THE MEDICATION IN his PAIN PUMP. The name and date of were verified and informed consent was obtained for the procedure. ?The pump was interrogated and the residual amount of fluid was found to be 0 mL. HE WAS POSITIONED prone on the bed. THE AREA OF THE INTRATHECAL PUMP WAS PREPPED WITH CHLORAPREP. The fenestrated drape was sterilely applied over the area of the pump. Sterile gloves were worn and of the aspiration system was assembled containing 2 in 22 gauge noncoring needle, the needle was connected to extension tubing which was connected to the 20 cc sterile syringe. The pain pump was palpated under the skin in the patient's left anterior abdomen area. The ultrasound probe was applied and the central plug was detected under the skin on direct ultrasound view. The point on the skin corresponding to the area of the central plug was marked with blue surgical marker. After that the area of the pump was prepped with ChloraPrep and draped with fenestrated drape. The needle was inserted through the skin and the central plug of the pain pump and fluid was aspirated. The clear fluid was going into the syringe the total amount of the fluid was 0 mL .. After that a new batch? of medication was obtained which was containing bupivacain 5 mg per ml. The admixture was made in 20 cc syringe prepared by [facility] compounding pharmacy. The syringe was connected to the bacterial filter, and then connected to the extension tubing. After that the medication in the syringe was slowly instilled into the pump with aspirations at 15 and 5 cc harper.? The pump was reprogrammed as it was previously set for the doses of bupivacaine 0.24 mcg per day with corresponding dose of bupivacaine.? The patient was given one dose of the PTM with bupivacaine 3 mg given over the 45 minutes. Plan Linus will be scheduled for next refill in 20 days. For the next refill I would need to bring the concentration of the bupivacaine up to 10 milligrams/mL in preservative-free normal saline 20 mL. Patient Instructions: I hereby testify that I spent 32 minutes discussing the pain pump with the patient, planning his care and organizing this note. Coding Level of Care Code Est Pt Level 4 (07480) Procedure Only Diagnoses Left hip pain M25.552 Pain of both sacroiliac joints M53.3 Osteoarthritis of hips, bilateral M16.0 Chronic pain syndrome G89.4 Myofascial pain syndrome M79.18 Myofascial pain syndrome of lumbar spine M79.18 Sacroiliac joint dysfunction of left side M53.3 S/P fusion of sacroiliac joint Z98.1
--- OUTSIDE RECORDS SUMMARY | 2025-01-11 12:43 | XMS_ITS | Continuity of Care Document ---
Author Name [facility] Organization [facility] Care Team Providers Care Weatherseal Technician Name Role Phone [facility] Unavailable Unavailable Problems Combined list of problems from Department of Defense and Veterans Affairs facilities. It does not include entries that were removed or entered in error. Problem Status Onset Date Problem Type Date of Resolution Comments Source Abdominal pain Active Condition Jun 272020 Entered By: ERNESTO BARROW Comment: ABD Pain; Etio?Jul 19, 2021 Entered By: ERNESTO BARROW Comment: Sees Private [facility] Dr Melendrez [phone] [place] Benign hypertension Active Condition SP [facility] Benign prostatic hyperplasia Active Condition Jul 19, 2021 Entered By: ERNESTO BARROW Comment: Sees [facility] Every 3-4 Months for BPHJul 19, 2021 Entered By: ERNESTO BARROW Comment: Last Visit to Private [facility] was JUN 15:Jul 19, 2021 Entered By: ERNESTO BARROW Comment: Office Ultrasound Neg for Suspicious Lesions; No Heme on UA in JUN 15 [place] Depression Active Condition Jul 19 Entered By: ERNESTO BARROW Comment: Depression, Anxiety, PTSDJul 19, 2021 Entered By: ERNESTO BARROW Comment: Sees Private [facility] Dr. Suarez [phone] at [facility] 2021 Entered By: ERNESTO BARROW Comment: No SI / HINov 2020 Entered By: ERNESTO BARROW Comment: also Therapist Dr Green [facility] [phone] [place] Fibromyalgia Active Condition Jul 19, 2021 Entered By: ERNESTO BARROW Comment: Episodic Break-Throughs ; Severe when Sx Erupt; Affects Whole Body Jul 19, 2021 Entered By: ERNESTO BARROW Comment: Pain Management Dr So at [facility] [phone] [place] Gordon hematuria Active Condition Jul 19, 2021 Entered By: ERNESTO BARROW Comment: Private [facility] is a Dr Sandhu [phone][facility] Entered By: ERNESTO BARROW Comment: Denies Renal, Bladder CA; No Lithiasis; +BPH as of JUL 16springBAM Hypercholesterolemia Active Condition Jul 19, 2021 Entered By: ERNESTO BARROW Comment: h/o Elevated Lipids; On Crestor; Allergic to Other Statins [place] Overactive bladder Active Condition J 2021 Entered By: ERNESTO BARROW Comment: Sees [facility]; Gets Suprapubic BOTOX Inj.'s [place] Sciatica Active Condition Jul 19 Entered By: ERNESTO BARROW Comment: Discopathy, L-Spine; Radiates Left Leg, Down to LEFT Ankle [place] Screening for malignant neoplasm of colon done Active Condition Jul 19, 2021 Entered By: ERNESTO BARROW Comment: Initial Screen Colonoscopy 2020 at [facility];Jul 19, 2021 Entered By: ERNESTO BARROW Comment: Neg CRC or Polyps; repeat 2030 (sooner prn) [place] Shoulder pain Active Condition Jan Entered By: ERNESTO BARROW Comment: Left Shldr and L Elbow Pains: X-Rays [place] DEC 15 Unremarkable [place] Type 2 diabetes mellitus Active Condition Jul 19, 2021 Entered By: ERNESTO BARROW Comment: +Diabet Neuropathy Feet; Sees Neuro Outside [facility] 2020 Entered By: ERNESTO BARROW Comment: Private Neuro Dr Iris Quigley [facility] [phone] 2020 Entered By: ERNESTO BARROW Comment: on Carbamepazine, Lyrica, for NeuropathyJul 19, 2021 Entered By: ERNESTO BARROW Comment: Sees Private Ophth Once Yr (Month of Aug); no DR as of JUL 16 [place] Under care of doctor Active Condition Jul 19, 2021 Entered By: ERNESTO BARROW Comment: Private PCP Dr Melissa Quigley [facility] [phone] [place] Medications Combined list of outpatient medications from Department of Defense and Veterans Affairs facilities.Medications provided include 1) outpatient medications from the last 15 months, and 2) patient-reported medications. Medication Details Route Status Patient Instructions Prescription Expires Prescription Number Last Dispense Date Ordering Provider Order Date Order Qty Source BACLOFEN 20MG TAB TAKE ONE TABLET BY MOUTH ONCE DAILY ORAL ACTIVE DANIEL BARROW 2021 [facility] [place] BUPROPION HCL 300MG 24HR TAB,SA TAKE ONE TABLET BY MOUTH ONCE DAILY ORAL ACTIVE DANIEL BARROW 2021 [facility] [place] CARBAMAZEPI [place] 200MG TAB TAKE ONE TABLET BY MOUTH ONCE DAILY [facility] [place] CLONAZEPAM 0.5MG TAB TAKE ONE TABLET BY MOUTH BEDTIME ORAL [facility] [place] CYANOCOBALA MIN 100MCG TAB TAKE ONE TABLET BY MOUTH ONCE DAILY [facility] DULOXETINE HCL 30MG CAP,EC TAKE 3 CAPSULES BY MOUTH ONCE DAILY [facility] LISINOPRIL 2.5MG TAB TAKE ONE TABLET BY MOUTH ONCE DAILY [facility] [place] METFORMIN HCL 1000MG TAB TAKE ONE TABLET BY MOUTH TWICE DAILY ORAL [facility] [place] NAPROXEN 500MG TAB TAKE ONE TABLET BY MOUTH TWICE DAILY NEEDED ORAL [facility] 2021 [facility] [place] OTHER CAP/TAB TAKE LYRICA 300 MG BY MOUTH TWICE DAILY [facility] [place] QUETIAPINE FUMARATE 25MG TAB TAKE ONE TABLET BY MOUTH BEDTIME ORAL [facility] 2020 [facility] [place] ROSUVASTATI N CA 20MG TAB TAKE ONE-HALF TABLET BY MOUTH ONCE DAILY ORAL [facility] 2020 [facility] [place] SITAGLIPTIN PHOSPHATE 100MG TAB TAKE ONE TABLET BY MOUTH ONCE DAILY ORAL ACTIVE [facility] 2021 [facility] [place] TAMSULOSIN HCL 0.4MG CAP TAKE 1 CAPSULE BY MOUTH BEDTIME [facility] 2020 [facility] [place] Allergies, Adverse Reactions, Alerts Combined list of allergies from Department of Defense and Veterans Affairs facilities. It does not include entries that were removed or entered in error. Substance Category Reaction Severity Reaction type Status Date Reported Comments Source No Known Allergies Drug allergy (disorder) active 2 [facility] Propensity to adverse reactions to drug (finding) Urticaria active 1 [facility] ZOCOR Propensity to adverse reactions to drug (finding) Low blood pressure, Muscle pain active [facility] Immunizations Combined list of available immunizations from the Department of Defense and Veterans Affairs facilities. Immunization Series Date Given Administered By Site Reaction Lot Number CVX Code Drug Veterinarian Helper Status Comments Source INFLUENZA, UNSPECIFIED FORMULATION 2022 88 complet ed HISTORICA L INFORMATI ON - FROM PATIENT'S WRITTEN RECORD, [facility] COVID-19 (MODERNA), MRNA, LNP-S, BIVALENT, PF, 50 MCG/0.5 ML OR 25MCG/0.25 ML DOSE 1 2022 229 complet ed HISTORICA L INFORMATI ON - FROM PATIENT'S WRITTEN RECORD, [facility] COVID-19 (PFIZER), MRNA, LNP-S, PF, 30 MCG/0.3 ML DOSE 3 2021 208 complet ed [facility] PNEUMOCOCCAL POLYSACCHARID E PPV23 [...] DOSE 2 2020 208 complet ed [facility] COVID-19 (PFIZER), MRNA, LNP-S, PF, 30 MCG/0.3 ML DOSE 1 2020 208 complet ed [facility] Encounters Combined list of: 1) Encounters from Department of Veterans Affairs facilities going backup to the last 18 months, not all VA inpatient encounters are included; 2) Encounters from the Department of Defense facilities going backup to 280 months. Location Location Details Encounter Type Encounter Number Reason For Visit Attending Provider ADM Date DC Date Status Disposition Source [facility] Outpatient Encounter [id number] 09/30 [facility] [place] Out[place] [facility]counter [id number] 10/09 [place] [facility] En[facility] [id number] 10/09 [facility] [id number] 10/10 [facility] [id number] 12/01 [facility] [id number] 12/01 [facility] [id number] 12/03 [facility] [id number] 12/23 [facility] [id number] 12/23 [facility] [id number] 01/06 [facility] [id number] 01/09 [facility] [id number] 07/01 [facility] Social History Combined list of available smoking, tobacco, and other social history from Department of Defense and Veterans Affairs facilities. Social History Type Response Date Comment Sourc e Tobacco smoking status [facility][NOTE 3]-TOBACCO FORMER USER 10/09/2023 [place] History of tobacco use ND-TOBACCO QUIT 15 YRS OR MORE 10/09/2023 [place] History of tobacco use ND-TOBACCO FORMER USER 07/19/2021 [facility] This section is an empty social history section. DoD Advance Directives List of completed, amended, or rescinded Advance Directives on record at Department of Veterans Affairs facilities. An actual copy of the Directive is not included. Date Advance Directive Provider Source 09/20/2021 ADVANCE DIRECTIVE RADHA MADERA 07/14/2021 ADVANCE DIRECTIVE RADHA MADERA
--- OUTSIDE RECORDS SUMMARY | 2025-01-11 12:43 | XMS_ITS | Encounter Summary ---
Author Name [facility] Organization [facility] Address [address] [place] [id number] Care Team Providers Care Certified Nurse Practitioner Name Role Phone ERNESTO BARROW Primary Care [...] [facility] MEDICARE ADVANTAGE MCR ([facility]) Aug 26, 2019 [id number] [phone] Marcela GUERRERO PATIENT [facility] ([facility]) MEDICARE ADVANTAGE MCR ([facility]) Aug 26, 2019 [id number] [phone] Marcela GUERRERO PATIENT Selected Encounter This section includes the information on record at [place] for the Encounter. Date/Time Encounter Type Encounter [...] this document. The data comes from all [place] facilities. Date Advance Directives Provider Source Sep 20, 2021 ADVANCE DIRECTIVE RADHA MADERA Jul 14, 2021 ADVANCE DIRECTIVE RADHA MADERA
[2025-01-11 13:53] VITALS: BP 108/66; PULSE 88; O2SAT 94; BMI 23.2
== END 2025-01-11 12:56 | disposition home or self-care (01) ==
LOC: HO.PMC 12:16
PROVIDERS: PCP Internal Medicine; Visit Provider Anesthesiology
DX: G89.4 Chronic pain syndrome (principal); M16.0 Bilateral primary osteoarthritis of hip; M79.18 Myalgia, other site; Z98.1 Arthrodesis status; Z45.1 Encounter for adjustment and management of infusion pump
CPT/HCPCS: 62370; 99214

== ENCOUNTER → 2025-01-11 12:15 | Outpatient (BNVA) | payer OTHER, SELFPAY | PROVIDERS: PCP Internal Medicine; Visit Provider Anesthesiology | DX: M25.552 Pain in left hip (principal); M53.3 Sacrococcygeal disorders, not elsewhere classified; M16.0 Bilateral primary osteoarthritis of hip; M79.18 Myalgia, other site; G89.4 Chronic pain syndrome; Z98.1 Arthrodesis status | CPT/HCPCS: 62370; 99212 ==

== ENCOUNTER 2025-02-05 15:34 | Outpatient (REF) | payer OTHER, SELFPAY ==
--- NOTE | ~2025-02-05 | US_ITS ---
EXAMINATION: Ultrasound renal bilaterally. CLINICAL INFORMATION: Calculus of the kidney. COMPARISON: April 02, 2024. TECHNIQUE: Real-time ultrasound of the kidneys using grayscale technique. FINDINGS: Right kidney: 11 x 6 x 6 cm. Normal echotexture. Normal renal cortical thickness. No hydronephrosis. No solid or cystic lesion. There is a 5 mm hyperechoic area in the midportion. Left kidney: 10 x 6 x 4 cm. Normal echotexture. Normal renal cortical thickness. No hydronephrosis. No gross solid or cystic lesion. US/US renal BI IMPRESSION: 5 mm nonobstructing calculus, right kidney. Electronically signed by: Dave Betancourt MD 02/08/2025 08:22 AM EDT
== END 2025-02-05 15:35 | disposition home or self-care (01) ==
LOC: HO.US 15:34
PROVIDERS: PCP Internal Medicine; Visit Provider Nurse Practitioner Family
DX: N20.0 Calculus of kidney (principal)
CPT/HCPCS: 76775

== ENCOUNTER → 2025-02-05 15:36 | Outpatient (BNV) | payer OTHER, SELFPAY | PROVIDERS: PCP Internal Medicine; Visit Provider Radiology Diagnostic Radiology | DX: N20.0 Calculus of kidney (principal) | CPT/HCPCS: 76775 ==

== ENCOUNTER 2025-02-09 06:03 | Outpatient (REF) | payer OTHER, SELFPAY | END 2025-02-09 06:04 | disposition home or self-care (01) | LOC: CF 06:03 | PROVIDERS: Visit Provider Anesthesiology | DX: Z45.1 Encounter for adjustment and management of infusion pump (principal); M25.552 Pain in left hip; M53.3 Sacrococcygeal disorders, not elsewhere classified; M16.0 Bilateral primary osteoarthritis of hip; G89.4 Chronic pain syndrome; M79.18 Myalgia, other site; Z98.1 Arthrodesis status | CPT/HCPCS: 62370; 99212 ==

== ENCOUNTER 2025-02-09 11:36 | Outpatient (AMB) | payer OTHER, SELFPAY ==
[2025-02-09 11:57] VITALS: BP 94/66; PULSE 80; RESP 16; O2SAT 98
--- NOTE | 2025-02-09 11:57 | A.OFFVIS_ITS ---
Vital Signs 02/09/25 11:57 BP 94/66 Blood Pressure Location Lt brachial Position Sitting Respiration 16 Pulse 80 Pulse Source Pulse Oximeter Pulse Oximetry (%) 98 Oxygen Delivery Method Room Air Intake Visit Reasons: ITDD Refill Speech Pathology Teacher Required: No Allergies linagliptin [From [facility]] Allergy (Intermediate, Verified 02/09/25 11:58) RASH Qfacdwy-SRE-ZxY Reductase Inhibitor [JGNRRON-VGP-LQH REDUCTASE INHIBITOR] Allergy (Intermediate, Verified 02/09/25 11:58) ITCHY,SKIN BREAKDOWN HPI Comments Details: Linus is today in my office for the intrathecal pain pump refill. He reports pain improvement. He reports that several minutes after he starts his daily bolus he feels numbness surrounding his abdomen. He is asking me if it is normal. I explained to him that this is exactly what the pain pump does and this is how it relieves his pain. He reports excellent pain relief. He reports good mobility excellent activities of daily living, very good social interactions. He reports that 1 dose of PTM lasts him as much as 6-7 hours. He requests me to increase the dose of the PTM a little bit. I will increase the dose of the PTM today for the patient. He is very satisfied with the treatment. see the full pump refill as below. His saturation was increased to 10 milligrams/mL and his new pump refill will be in 56 days. Prior: Linus presents back to the office today for follow-up. He was last seen here 03/14/2023 where he underwent injection for greater trochanteric bursitis. He reports since the injection he has no longer having pain to the lateral thigh. Today he is complaining of pain to the left lower back. Previously had left SI joint fusion, he also has sacral nerve stimulator, the device is near the area of his pain. He is adamant that the pain is not related to the device. Pain is worse with moving, bending, twisting and palpation. He does not have any pain to the groin. He does report some radiation of the pain to his left thigh posteriorly Currently he is using THC for his pain Prior: Linus is very pleasant 52 years old gentleman who is in my office again with new complaint. He reports that pain with movement related to sacroiliac joint on the left with was addressed with left SI joint fusion performed on 09/07/2022 is not bothering him anymore. However he reports that 2 weeks ago experience pain in the left side of the lower back radiating to the left flank. He reports the pain is getting more severe his torso flexion and rotation. He has been implanted sacral nerve stimulation device near this area so the trigger point injections are potentially risky for disruption of the stimulating leads. It sound to me that the patient is suffering from myofascial pain syndrome. To begin his treatment I offered him to start him on muscle relaxant tizanidine 2 mg t.i.d.. If this does will help him minimally without side effects I will increase the doses of the tizanidine. We agreed that he will give us a call in couple of weeks and if pain is continue to bother him schedule yet 1 more appointment. Prior: ? He received bilateral sacroiliac joint injections diagnostic with ropivacaine and he had 100% pain relief for the 1st 7 hours after the injection. He received diagnostic injection on 08/07/2022.? [facility] Medical History History of COVID-19 Low back pain Peripheral neuropathy Arthritis Unintentional weight loss PTSD (post-traumatic stress disorder) Hematuria Left lower quadrant pain Urinary frequency Type 2 diabetes mellitus with unspecified complications Other obstructive and reflux uropathy Benign prostatic hyperplasia with lower urinary tract symptoms Urgency incontinence Hypercalcemia Surgical History S/P fusion of sacroiliac joint History of esophagogastroduodenoscopy (EGD) Anal fissure History of surgery Hx of cystoscopy Hx of cardiac catheterization History of prostate surgery Hx of cystoscopy Hx of cystoscopy H/O colonoscopy Social History Are you a primary child care attendant school to a significant other at home: No Do you presently have visiting nurse or other home services: Yes ([employer]) Alcohol intake: never Patient Tobacco Use Status: Former Tobacco user Tobacco use type: Cigarette Second Hand Smoke Exposure: No Substance Use Type: Marijuana service: Yes Current occupational status: unemployed Current occupation: left handed Review of Systems Const All systems reviewed & are unremarkable except as noted in HPI and below Physical Exam Vital Signs: Last Vital Signs Pulse 80 02/09/25 11:57 Resp 16 02/09/25 11:57 BP 94/66 02/09/25 11:57 Pulse Ox 98 02/09/25 11:57 Oxygen Delivery Method Room Air 02/09/25 11:57 General: awake, alert, oriented. Answers questions appropriately. Fully engaged in examination. Skin: warm, dry, intact without visible rashes or lesions. HEENT: Normocephalic. Conjuntivae clear without exudate. Sclera non-icteric. Hearing intact. Cardiac: External chest normal in appearance. Respiratory: No signs of trauma. No signs of respiratory distress. No cough, audible wheezing or stridor. Abdomen: without gross distension. MS: Well-healed surgical scar left lower back Tenderness over left PSIS Gaenslen positive on the left SI compression positive on the left TYRESE positive on the left Thigh thrust positive on the left Nontender over midline lumbar vertebrae and lumbar paraspinal muscles SLR negative bilaterally Neurological: Oriented to person, place, time and situation. Thought process intact. No gait abnormalities appreciated. Psychiatric: Appropriate mood and affect. Good judgment and insight. Assessment & Plan Assessment & Plan (1) Left hip pain: Code(s): M25.552 - Pain in left hip Category: Medical (2) Pain of both sacroiliac joints: Code(s): M53.3 - Sacrococcygeal disorders, not elsewhere classified Category: Medical (3) Osteoarthritis of hips, bilateral: Code(s): M16.0 - Bilateral primary osteoarthritis of hip Category: Medical (4) Chronic pain syndrome: Code(s): G89.4 - Chronic pain syndrome Category: Medical (5) Myofascial pain syndrome: Code(s): M79.18 - Myalgia, other site Category: Medical (6) Myofascial pain syndrome of lumbar spine: Code(s): M79.18 - Myalgia, other site Category: Medical (7) Sacroiliac joint dysfunction of left side: Code(s): M53.3 - Sacrococcygeal disorders, not elsewhere classified Category: Medical (8) S/P fusion of sacroiliac joint: Code(s): Z98.1 - Arthrodesis status Category: Surgical Plan: Intrathecal pump refill. THE PATIENT CAME TODAY IN THE office FOR THE CHANGE OF THE MEDICATION IN his PAIN PUMP. The name and date of were verified and informed consent was obtained for the procedure. ?The pump was interrogated and the residual amount of fluid was found to be 1.8 mL. HE WAS POSITIONED prone on the bed. THE AREA OF THE INTRATHECAL PUMP WAS PREPPED WITH CHLORAPREP. The fenestrated drape was sterilely applied over the area of the pump. Sterile gloves were worn and of the aspiration system was assembled containing 2 in 22 gauge noncoring needle, the needle was connected to extension tubing which was connected to the 20 cc sterile syringe. The pain pump was palpated under the skin in the patient's left anterior abdomen area. The ultrasound probe was applied and the central plug was detected under the skin on direct ultrasound view. The point on the skin corresponding to the area of the central plug was marked with blue surgical marker. After that the area of the pump was prepped with ChloraPrep and draped with fenestrated drape. The needle was inserted through the skin and the central plug of the pain pump and fluid was aspirated. The clear fluid was going into the syringe the total amount of the fluid was 1.1 mL .. After that a new batch? of medication was obtained which was containing bupivacain 10 mg per ml. The admixture was made in 20 cc syringe prepared by [facility] compounding pharmacy. The syringe was connected to the bacterial filter, and then connected to the extension tubing. After that the medication in the syringe was slowly instilled into the pump with aspirations at 15 and 5 cc harper.? The pump was reprogrammed as it was previously set for the doses of bupivacaine 0.48 mcg per day with corresponding dose of bupivacaine.? The patient was given one dose of the PTM with bupivacaine 3 mg given over the 50 minutes. Plan Linus will be scheduled for next refill in 56 days. For the next refill I would need to bring the concentration of the bupivacaine up to 10 milligrams/mL in preservative-free normal saline 20 mL. Coding Level of Care Code Est Pt Level 3 (27144) Procedure Only Diagnoses Left hip pain M25.552 Pain of both sacroiliac joints M53.3 Osteoarthritis of hips, bilateral M16.0 Chronic pain syndrome G89.4 Myofascial pain syndrome M79.18 Myofascial pain syndrome of lumbar spine M79.18 Sacroiliac joint dysfunction of left side M53.3 S/P fusion of sacroiliac joint Z98.1
== END 2025-02-09 12:16 | disposition home or self-care (01) ==
LOC: HO.PMCPRC 11:36
PROVIDERS: PCP Internal Medicine; Visit Provider Anesthesiology
DX: M16.0 Bilateral primary osteoarthritis of hip (principal); G89.4 Chronic pain syndrome; M79.18 Myalgia, other site; Z98.1 Arthrodesis status; Z45.1 Encounter for adjustment and management of infusion pump
CPT/HCPCS: 62370; 99213

== ENCOUNTER 2025-02-16 10:29 | Outpatient (REF) | payer OTHER, SELFPAY ==
[2025-02-16 11:43] LABS: Estimated Average Glucose 160 mg/dL; Hemoglobin A1c % 7.2 % (<6.0)
[2025-02-16 12:04] LABS: Alanine Aminotransferase 20 U/L (0-40); Albumin Level 4.5 g/dL (3.5-5.0); Alkaline Phosphatase 108 U/L (39-117); Anion Gap 10 (12-20); Aspartate Amino Transferase 26 U/L (5-37); Bilirubin Total 0.2 mg/dL (0.0-1.0); Blood Urea Nitrogen 15 mg/dL (9-16); Calcium 9.5 mg/dL (8.4-10.2); Carbon Dioxide 30 mmol/L (22-29); Chloride 106 mmol/L (96-108); Cholesterol 130 mg/dL (<200); Estimated Glomerular Filt Rate > 60; Glucose Random 153 mg/dL (60-115); HDL Cholesterol 52 mg/dL (>40); LDL Cholesterol Calculated 57 mg/dL (<100); Potassium 5.2 mmol/L (3.3-5.1); Sodium 141 mmol/L (135-145); Total Protein 6.5 g/dL (6.5-8.0); Triglycerides 107 mg/dL (<150)
[2025-02-16 12:14] LABS: Prostate Specific Antigen Scr 0.51 ng/mL (<0.05-4.0)
[2025-02-16 12:20] LABS: Creatinine Urine 145.09 mg/dL; Microalbum/Creatinine Ratio Ur 7.5 ug/mg cr (<30)
== END 2025-02-16 10:30 | disposition home or self-care (01) ==
LOC: HO.LAB 10:29
PROVIDERS: PCP Internal Medicine; Visit Provider Internal Medicine
DX: Z12.5 Encounter for screening for malignant neoplasm of prostate (principal); E11.9 Type 2 diabetes mellitus without complications; E78.00 Pure hypercholesterolemia, unspecified; N40.0 Benign prostatic hyperplasia without lower urinary tract symptoms
CPT/HCPCS: 36415; 80053; 80061; 82043; 82570; 83036; 84153

== ENCOUNTER 2025-02-18 10:10 | Outpatient (REF) | payer OTHER, SELFPAY ==
[2025-02-18 16:59] LABS: Urine Cytology See Pathology rpt
== END 2025-02-18 10:11 | disposition home or self-care (01) ==
LOC: HO.LNP 10:10
PROVIDERS: PCP Internal Medicine; Visit Provider Nurse Practitioner Family
DX: R31.9 Hematuria, unspecified (principal); N20.0 Calculus of kidney; N30.10 Interstitial cystitis (chronic) without hematuria; Z79.899 Other long term (current) drug therapy
CPT/HCPCS: 51798; 81003; 88112; 99212

== ENCOUNTER 2025-02-18 10:10 | Outpatient (AMB) | payer OTHER, SELFPAY ==
--- NOTE | 2025-02-18 10:40 | A.OFFVIS_ITS ---
Intake Visit Reasons: 6m/US Intake Note: Patient presents today for tele visit follow up on: chronic uti, OAB, prostatitis, lab and ultrasound results Imaging Completed: 02/05/25 PSA: 0.51 Urology Med: Finasteride, tamsulosin Antibiotic Allergy: none Blood Thinner: none PVR: 31ml's Input Output Clerk Required: No Accompanied by: Self / Same As Patient Allergies linagliptin (From [facility]) Allergy (Intermediate, Verified 02/18/25 11:12) RASH Zkamnyu-EOY-VnV Reductase Inhibitor (MEASXOL-IZI-RHX REDUCTASE INHIBITOR) Allergy (Intermediate, Verified 02/18/25 11:12) ITCHY,SKIN BREAKDOWN HPI Comments Details: Linus is a 54-year-old male patient of Dr. Bates. He has a past medical history of low back pain, peripheral neuropathy, arthritis, PTSD, type 2 diabetes, hypercalcemia, hematuria, and urinary frequency. He presents to the office today for follow-up of his nephrolithiasis. Recent renal ultrasound imaging results reviewed with the patient today 02/17 bilateral kidneys with no hydronephrosis or renal masses. 5 mm nonobstructing right renal calculus. He does report intermittent episodes of left-sided flank pain. He does continue to follow-up with pain management for his ongoing generalized chronic pain. We did discussed potential causes of left-sided flank pain patient is experiencing as well as stone burden noted on most recent imaging. He currently denies any bothersome urinary issues or concerns. He reports feelings InterStim has been extremely helpful with lower urinary tract symptoms he had been experiencing. He discusses doing well on program 03/02. He has a previous history of laser prostatectomy in 2019. He has failed oral medications including oxybutynin, tolterodine, and Myrbetriq. He has also failed bladder Botox. Recent PSA results reviewed with the patient today as noted and trended below: 11/15 0.6, 12/16 0.6, 06/17 0.3, 02/17 0.5 When asked he denies urinary urgency, urinary frequency, incontinence, nocturia, dysuria, foul smelling urine, changes to urinary stream, flank pain, fever, and or chills. He is happy with her current voiding parameters. In office urinalysis results reviewed with the patient today. 2+ microscopic hematuria he does report smoking marijuana daily as he does have a medical marijuana card. We did discussed potential causes of microscopic hematuria patient with a history of interstitial cystitis and underwent cystoscopy with bladder biopsy 11/14. We did discuss potential causes for microscopic hematuria as well as further workup in risks and benefits of these interventions. I discussed reasons for blood in the urine may include but are not limited to kidney stones, cancer in the urinary tract, BPH, kidney stone disease or inflammatory c onditions of the urinary tract. I have discussed workup to include cystoscopy evaluation. He otherwise offers no other issues or concerns at this time. Previous office note: Interstitial cystitis Biopsy proven November 2021 - Inflamed and congested mucosa 11/14 hydrodistention adverse event with complicated UTI Microgen 12/15 Enterococcus linezolid sensitive - 1 week trial Prostatitis Recurrent Occasional flares Last episode started July 2021 DNA analysis sensitivity to clindamycin and linezolid - Staphylococcus and Corynebacterium Lower urinary tract symptoms Urgency and frequency consistent with diabetic cystopathy - failed from medications oxybuytinin and tolterodine Underwent laser prostatectomy in 2018 Diabetic cystopathy with urgency - Had recurrent hematuria 12/14 Procedures - 11/14 Cystoscopy with fulguration neovascularity - 02/14 cystoscopy with bladder Botox Imaging 10/16 CT scan TURP defect, no stones Prior medications - oxybutynin 10 mg poor response, myrbetriq [facility] Medical History History of COVID-19 Low back pain Peripheral neuropathy Arthritis Unintentional weight loss PTSD (post-traumatic stress disorder) Hematuria Left lower quadrant pain Urinary frequency Type 2 diabetes mellitus with unspecified complications Other obstructive and reflux uropathy Benign prostatic hyperplasia with lower urinary tract symptoms Urgency incontinence Hypercalcemia Surgical History S/P fusion of sacroiliac joint History of esophagogastroduodenoscopy (EGD) Anal fissure History of surgery Hx of cystoscopy Hx of cardiac catheterization History of prostate surgery Hx of cystoscopy Hx of cystoscopy H/O colonoscopy Social History Are you a primary patient care secretary to a significant other at home: No Do you presently have visiting nurse or other home services: Yes ([employer] WAIST[employer]) Alcohol intake: never Patient Tobacco Use Status: Former Tobacco user Tobacco use type: Cigarette Second Hand Smoke Exposure: No Substance Use Type: Marijuana service: Yes Current occupational status: unemployed Current occupation: left handed Review of Systems Const Reports as per [facility] Eyes Reports no additional complaints Card Reports as per [facility] Reports as per [facility] Musc Reports as per [facility] Neuro Reports as per [facility] Psych Reports as per [facility] Endo Reports as per [facility] Physical Exam Const General: cooperative, healthy appearing, comfortable, no acute distress, well developed, alert and awake Nutritional Appearance: average body habitus Orientation/consciousness: patient oriented x3 Limitations: no limitations HEENT Head: Yes normal to inspection, Yes normocephalic and Yes atraumatic Ears: hearing grossly normal bilaterally Eyes General: appearance normal, both eyes and all related structures Neck Neck: Yes normal visual inspection and Yes trachea midline Chest Chest palpation & inspection: normal inspection of the chest Resp Effort & Inspection: normal respiratory effort and able to speak in complete sentences Cardio Rate: regular rate GI Inspection: Yes normal to inspection General: Yes no CVA tenderness Back/Spine/Pelvis Back: no CVA tenderness Skin General skin exam: no rashes or lesions noted Neuro General: patient oriented x3 Extrem General: Yes normal to inspection Psych Appearance: grossly normal and well kempt Mental Status: mental status grossly normal Speech and movement: Normal speech and movement present and Clear speech present Affect: normal affect Attitude: cooperative Thought process: Normal thought process present Thought content: Normal thought content present Insight: Fair insight present (Psych) Judgement: Fair judgement present (Psych) Office Procedures Post Void Residual Post Residual Void Post Void Residual (PVR): [id number] Void Residual by ultrasound Results AMB Urinalysis, Automated UA Leukoctes 0 Jt/uL Last Edit by LINDA Flores on 02/18/25 11:18 UA Nitrite Last Edit by LINDA Flores on 02/18/25 11:18 UA Urobilinogen 0.2 mg/dL Last Edit by LINDA Flores on 02/18/25 11:1 8 UA Protein 15 mg/dL Last Edit by Deborah Lei, [facility] on 02/18/25 11:18 UA pH 6.0 Last Edit by Deborah Lei, [facility] on 02/18/25 11:18 UA Blood 80 Mikie/uL Last Edit by Deborah Lei, [facility] on 02/18/25 11:18 UA Specific [place] 1.025 Last Edit by Deborah Lei, [facility] on 02/18/25 11: 18 UA Ketone Last Edit by Deborah Lei, [facility] on 02/18/25 11:18 UA Bilirubin 1 mg/dL Last Edit by Deborah Lei, [facility] on 02/18/25 11:18 UA Glucose 0 mg/dL Last Edit by Deborah Lei, [facility] on 02/18/25 11:18 Results Reviewed Results Reviewed: Laboratory Last Values Urine pH (Auto) 6.0 02/18/25 11:15 Specific [place] (Auto) 1.025 02/18/25 11:15 Urine Protein (Auto) 15 mg/dL 02/18/25 11:15 Glucose (UA)(Auto) 0 mg/dL 02/18/25 11:15 Urine Blood (Auto) 80 Mikie/uL 02/18/25 11:15 Urine Bilirubin (Auto) 1 mg/dL 02/18/25 11:15 Urine Urobilinogen (Auto) 0.2 mg/dL 02/18/25 11:15 Leukocyte Esterase (Auto) 0 Jt/uL 02/18/25 11:15 Date of Service: 02/05/25 Procedure(s): US renal BI FINDINGS: Right kidney: 11 x 6 x 6 cm. Normal echotexture. Normal renal cortical thickness. No hydronephrosis. No solid or cystic lesion. There is a 5 mm hyperechoic area in the midportion. Left kidney: 10 x 6 x 4 cm. Normal echotexture. Normal renal cortical thickness. No hydronephrosis. No gross solid or cystic lesion. IMPRESSION: 5 mm nonobstructing calculus, right kidney. Assessment & Plan Assessment & Plan (1) Nephrolithiasis: Code(s): N20.0 - Calculus of kidney Category: Medical (2) Hematuria: Code(s): R31.9 - Hematuria, unspecified Category: Medical (3) Interstitial cystitis (chronic) without hematuria: Code(s): N30.10 - Interstitial cystitis (chronic) without hematuria Category: Medical Plan In office urinalysis results reviewed with the patient today; as noted above; will send for urine cytology. PVR 31 mL Recent renal ultrasound results reviewed with the patient today; as noted above. We discussed importance of adequate hydration relation to nephrolithiasis as well as overall health and well-being. Currently denies any bothersome urinary issues or concerns. He reports be happy with current voiding parameters. Recent PSA results reviewed with the patient today; as noted above. We discussed potential causes of microscopic hematuria as well as further workup in risks and benefits of these interventions Will obtain KUB in 6 months. Continue finasteride and Flomax; we did discussed taking finasteride every other day Follow-up in 6 months with KUB to be completed prior; or sooner with any issues, concerns, and or questions. Orders: Orders AMB Post Void Residual by ultrasound Today N39.0 - Urinary tract infection, site not specified AMB Urinalysis Automated Today Z13.9 - Encounter for screening, unspecified Urine Cytology Today R31.9 - Hematuria, unspecified Patient Instructions: The patient had an opportunity to ask questions regarding the treatment plan. All questions were answered. Physical exam, labs, and imaging were discussed and reviewed in detail. As well as risks, benefits, and discussion of treatment choices. No major barriers to understanding were identified. The patient expressed understanding and agreement with the above treatment plan. The patient was made aware they should contact our office by phone for worsening of their current condition, the appearance of new symptoms, or with any questions or concerns. Compliance is encouraged with any medications and follow up testing that is ordered. It is a privilege to be allowed the opportunity to participate in? your urological care.? Again, if you have any questions or concerns If you have any questions or concerns please do not hesitate to contact me. The office is [phone]. This note is constructed using voice recognition software. While every effort has been made to ensure accuracy grinder operator surface tool errors may have been included. Yours sincerely, EUNICE Yee Coding Level of Care Code Est Pt Level 3 (78760) Complex EM visit Add On G2211 Diagnoses Nephrolithiasis N20.0 Hematuria R31.9 Interstitial cystitis (chronic) without hematuria N30.10 CPT Codes Post Residual Void - PVR CPT Code: 63114-Krqq Void Residual by ultrasound ([id number])
== END 2025-02-18 11:20 | disposition home or self-care (01) ==
LOC: HO.HUSH 10:11
PROVIDERS: PCP Internal Medicine; Visit Provider Nurse Practitioner Family
DX: Z13.9 Encounter for screening, unspecified (principal)

== ENCOUNTER 2025-04-01 20:14 | Emergency (ER) | payer OTHER, SELFPAY ==
--- NOTE | ~2025-04-01 | XR_ITS ---
CLINICAL HISTORY: chest pain 2 view chest x-ray Comparison: Chest x-ray from 11/23/2023 Findings: Low lung volumes with mild bibasilar atelectasis/pneumonitis. No lobar consolidation. No pneumothorax or pleural effusion. Imaged mediastinum appears unchanged. Cervical spine hardware again noted. IMPRESSION: Mild bibasilar atelectasis This document has been electronically signed by: Thanh Jaffe MD on 04/01/2025 21:07:37
[2025-04-01 20:24] VITALS: BP 135/78; PULSE 75; O2SAT 97
--- NOTE | 2025-04-01 20:25 | ECG_ITS ---
Test Reason : CP Blood Pressure : */* mmHG Vent. Rate : 66 BPM Atrial Rate : 66 BPM P-R Int : 164 ms QRS Dur : 94 ms QT Int : 396 ms P-R-T Axes : -2 -24 -22 degrees QTcB Int : 415 ms Artifact in tracing Normal sinus rhythm Possible Lateral infarct (cited on or before 22-Jan-2021) Abnormal ECG When compared with ECG of 23-Nov-2023 20:01, T wave inversion now evident in Inferior leads Referred By: Jennifer Canales Electronically Signed By: JYOTSNA MUNOZ
--- NOTE | 2025-04-01 20:25 | ED.GENADULT ---
HPI - General Adult General Chief complaint: Chest Pain Stated complaint: General pain, hx fibromyalgia Time Seen by Provider: 04/01/25 23:44 History of Present Illness ED Provider: Brian Martinez MD HPI narrative: 54-year-old male with chronic low back pain, fibromyalgia, left shoulder impingement syndrome chronically with left neck/shoulder pain abrupt onset but at rest radiating to his shoulder feels some discomfort throughout the left arm. Most the pain is with abduction palpation stretching chest open. Some component is pleuritic but he is not dyspneic denies hemoptysis history DVT PE or any classical anginal symptoms Related Data Home Medications ?Medication ?Instructions ?Recorded ?Confirmed pregabalin 300 mg capsule 300 mg PO BID 08/31/20 12/02/24 bupropion HCl 300 mg 24 hr tablet, 300 mg PO QAM 10/14/20 12/02/24 extended release lamotrigine 200 mg tablet 200 mg PO BID 10/14/20 12/02/24 blood sugar diagnostic #10 ea 02/15/21 12/02/24 blood-glucose meter #1 ea 02/15/21 12/02/24 lancets 28 gauge (FreeStyle #100 ea 02/20/22 12/02/24 Lancets) cyanocobalamin (vitamin B-12) 1,000 mcg PO DAILY 07/02/23 12/02/24 1,000 mcg tablet duloxetine 30 mg capsule,delayed 30 mg PO DAILY 07/02/23 12/02/24 release duloxetine 60 mg capsule,delayed 60 mg PO DAILY 07/02/23 12/02/24 release finasteride 5 mg tablet 5 mg PO DAILY 07/02/23 12/02/24 lisinopril 2.5 mg tablet 2.5 mg PO DAILY 07/02/23 12/02/24 metformin 500 mg tablet,extended 500 mg PO ONCE 06/17/24 12/02/24 release 24 hr carbamazepine 400 mg 400 mg PO DAILY 09/01/24 12/02/24 tablet,extended release,12 hr ibuprofen 600 mg tablet 600 mg PO Q6H PRN Pain 09/01/24 12/02/24 naproxen 500 mg tablet 500 mg PO BID 09/01/24 12/02/24 prazosin 2 mg capsule 2 mg PO BEDTIME 09/01/24 12/02/24 quetiapine 50 mg tablet 50 - 100 mg PO BEDTIME 09/01/24 12/02/24 Previous Rx's ?Medication ?Instructions ?Recorded psyllium husk 3.4 gram/5.4 gram 1 tbsp PO DAILY #660 grams 07/10/23 oral powder (Metamucil) oxycodone 5 mg tablet 5 mg PO Q6H PRN pain 8 days #32 11/20/24 tabs tamsulosin 0.4 mg capsule 0.4 mg PO BEDTIME 90 days #90 caps 01/01/25 baclofen 20 mg tablet 20 mg PO BID PRN Muscular 02/26/25 spasticity 30 days #60 tabs Allergies Allergy/AdvReac Type Severity Reaction Status Date / Time linagliptin (From AasonnJENTA) Allergy Intermediate RASH Verified 04/01/25 20:44 Gahvmrr-HWD-LbM Reductase Allergy Intermediate ITCHY,SKIN Verified 04/01/25 20:44 Inhibitor ([id number]-GAU BREAKDOWN REDUCTASE INHIBITOR) PMFSH Past Medical History Medical History History of COVID-19 Low back pain Peripheral neuropathy Arthritis Unintentional weight loss PTSD (post-traumatic stress disorder) Hematuria Left lower quadrant pain Urinary frequency Type 2 diabetes mellitus with unspecified complications Other obstructive and reflux uropathy Benign prostatic hyperplasia with lower urinary tract symptoms Urgency incontinence Hypercalcemia Surgical History S/P fusion of sacroiliac joint History of esophagogastroduodenoscopy (EGD) Anal fissure History of surgery Hx of cystoscopy Hx of cardiac catheterization History of prostate surgery Hx of cystoscopy Hx of cystoscopy H/O colonoscopy Social History Social History Are you a primary care assistant to a significant other at home: No Do you presently have visiting nurse or other home services: 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 Head: Atraumatic Eyes: Anicteric, Normal conjunctiva. ENT: Moist mucosa, no pallor. Neck: Supple. Skin: No observable rash or bruising on exposed or examined skin Respiratory: Breathing comfortably, No distress.Clear to auscultation bilaterally, symmetric chest expansion, No wheeze, rales, ronchi. Cardiovascular: Regular rate and rhythm. No murmurs or rub. Well perfused periphery, warm extremities. No edema. Chest wall: Tenderness exclusively particularly the lateral pack/ anterior deltoid. Some limitation with ranging of the left shoulder. Mild splinting due to the pain. No bruising crepitus chest wall instability MSK a shoulder left side: Tender deltoid limited abduction. Intact external and internal rotation. Compartments soft throughout joints without swelling. Neurovascularly intact extremity in all distributions Abdominal: No focal tenderness. Soft, no objective distension. No palpable masses or obvious organomegaly. No guarding, no rebound tenderness or other peritoneal findings. : No flank tenderness. Neuro: Alert. Gross movement of all extremities intact. Psych: Calm. Cooperative. MSK: No grossly visible deformity. Vital signs: See flowsheet Vital Signs: Vital Signs - 24 hr 04/01/25 20:42 04/01/25 23:52 Temperature 97.8 F 97.7 F Pulse Rate 67 65 Respiratory Rate 16 14 Blood Pressure 111/65 130/77 Pulse Oximetry 98 97 Oxygen Delivery Method Room Air Room Air BMI result Body Mass Index 22.8 Course Course Course Narrative: This is a rapid medical exam performed by Phoenix Canales NP: Additional HPI, ROS, PE not included below will be deferred to primary provider. Patient is a 54-year-old male with history of fibromyalgia with bupivicaine pump, impingement syndrome of left shoulder presenting to the emergency department with complaint of left-sided chest, shoulder and arm pain which began while he was sitting in his recliner. Worse with movement, describes as stabbing. Started 20 mins prior to calling EMS. Stated to EMS that when he has this type of pain he typically takes a Percocet but he did not tonight. EMS gave Toradol prior to arrival but patient denied any pain relief from this. Plan: EKG, labs, chest x-ray Medications Administered Discontinued Medications Generic Name Dose Route Start Last Admin Trade Name Freq PRN Reason Stop Dose Admin Acetaminophen 975 mg 04/02/25 00:42 04/02/25 00:58 Acetaminophen 325 Mg Tablet PO 04/02/25 00:43 975 mg ONCE ONE Administration Diazepam 5 mg 04/02/25 00:42 04/02/25 00:58 Diazepam 5 Mg Tablet PO 04/02/25 00:43 5 mg ONCE ONE Administration Ibuprofen 800 mg 04/02/25 00:42 04/02/25 00:57 Ibuprofen 800 Mg Tablet PO 04/02/25 00:43 800 mg ONCE ONE Administration Lidocaine 1 patch 04/02/25 00:42 04/02/25 00:58 Lidocaine 4 % Patch Adh..Patch TRANSDERMA 04/02/25 00:43 1 patch ONCE ONE Administration Protocol Medical Decision Making Medical Decision Making [facility] Narrative: Medical Decision Makin-year-old male with left chest/shoulder pain atraumatic slightly pleuritic but also worse with palpation. No clinical signs of DVT no history of PE doubt PE as the etiology. Chest x-ray clear vitals stable. Troponin x2 negative TX excluded. Exquisitely tender musculature of the chest and anterior deltoid some limited range of motion of the left shoulder and previously diagnosed impingement syndrome left shoulder I feel this is strongly likely to be from a musculoskeletal etiology. Multimodal analgesia including topical and antispasmodics Preliminary Favored Differential Diagnosis: costochondritis, recurring shoulder impingement syndrome, pectoral strain, fibromyalgia unlikely ACS PE though there considered. No clinical suggestion based on character or exam for patients history of dissection though it was considered among additional considered etiologies Testing Interpreted Independently: Sinus rhythm no acute ischemic changes no RV strain Radiology or Lab testing Results Reviewed: Troponin x2 negative Consults: Not Applicable Independent Historians/External Chart Reviews: Not Applicable Social Determinants of Health Impacting MDM/Planning: Not Applicable Admission/Observation Consideration of admission/observation: Escalation of care including admission/observation considered Lab Data MDM Lab Attestation statement: I reviewed the patient's lab results. 04/01/25 21:01 04/01/25 21:01 Labs: Lab Results 04/01/25 Range/Units 21:01 WBC 7.0 (4.8-10.8) X10*3/uL RBC 3.86 L (4.60-5.80) X10*6/uL Hgb 11.9 L (14.0-18.0) g/dl Hct 33.7 L (42.0-52.0) % MCV 87.3 (80.0-98.0) fL MCH 30.8 (27.0-33.0) pg MCHC 35.3 (31.0-36.0) g/dl RDW 12.5 (11.0-16.0) % Plt Count 167 (160-400) X10*3/uL MPV 10.1 (9.4-12.4) fL Immature Gran % (Auto) 0.3 (0.0-0.4) % Neut % (Auto) 65.1 (45-73) % Lymph % (Auto) 26.3 (20-40) % Stokes % (Auto) 5.7 (2-11) % Eos % (Auto) 2.3 (0-4) % Baso % (Auto) 0.3 (0-2) % Lymph # (Auto) 1.9 (1.2-4.9) X10*3/uL Stokes # (Auto) 0.4 (0.1-1.2) X10*3/uL Eos # (Auto) 0.2 (0.0-0.4) X10*3/uL Baso # (Auto) 0.0 (0.0-0.2) X10*3/uL Abs Immat Gran (auto) 0.02 (0.00-0.03) X10*3/uL Absolute Neuts (auto) 4.6 (2.0-8.3) x10*3/uL Absolute Nucleated RBC 0.000 (0.0-0.012) X10*3/uL Nucleated RBC % (auto) 0.0 (0.0-0.2) /100WBC Sodium 141 (135-145) mmol/L Potassium 4.8 (3.3-5.1) mmol/L Chloride 105 (96-108) mmol/L Carbon Dioxide 30 H (22-29) mmol/L Anion Gap 11 L (12-20) BUN 15 (9-16) mg/dL Creatinine 1.19 (0.5-1.4) mg/dL Estim Creat Clear Calc 75.5 Estimated GFR > 60 Random Glucose 174 H (60-115) mg/dL Calcium 9.1 (8.4-10.2) mg/dL Total Bilirubin 0.2 (0.0-1.0) mg/dL AST 25 (5-37) U/L ALT 16 (0-40) U/L Alkaline Phosphatase 107 (39-117) U/L Troponin I High Sens < 2.7 (<3.5-35.0) ng/L Total Protein 6.9 (6.5-8.0) g/dL Albumin 4.7 (3.5-5.0) g/dL Independent Interpretation I performed an independent interpretation of an: Plain X-Ray (no PTX) Discharge Plan Discharge Clinical Impression: Acute shoulder pain Patient Disposition: Home, Self-Care Instructions: Arm Pain (ED), Shoulder Impingement Syndrome (ED) Additional Instructions: DISCHARGE DIAGNOSES: Chest/shoulder pain likely secondary to musculoskeletal cause HISTORY OF PRESENTATION: ?Chest and shoulder pain EMERGENCY DEPARTMENT COURSE,TESTS, TREATMENTS: While in the ED today reassuring lab work including heart attack enzyme test. EKG and chest x-ray normal and reassuring you were given medications: Valium, ibuprofen, Tylenol, lidocaine patch DISCHARGE MEDICATIONS: ?[We have made no changes to your regular medication regimen] FOLLOW-UP: ?Call your primary or general physician soon as possible to discuss your symptoms, your ED visit and to discuss follow up plans Call your primary doctor for follow up to discuss your pain and pain management INSTRUCTIONS ?& RETURN PRECAUTIONS: If any symptoms change first call your primary physician, if it is after-hours your primary doctors office should have a provider multimedia instructional designer you can speak with. If the symptoms are severe or very concerning to you then call 911 or return to the ED. Brian Martinez MD Emergency Physician [facility] Prescriptions: No Action oxycodone 5 mg tablet 5 mg PO Q6H PRN (Reason: pain) 8 Days Qty: 32 0RF Rx Instructions: Partial Fill upon patient request. tamsulosin 0.4 mg capsule 0.4 mg PO BEDTIME 90 Days Qty: 90 1RF baclofen 20 mg tablet 20 mg PO BID PRN (Reason: Muscular spasticity) 30 Days Qty: 60 8RF lisinopril 2.5 mg tablet 2.5 mg PO DAILY finasteride 5 mg tablet 5 mg PO DAILY duloxetine 30 mg capsule,delayed release(DR/EC) 30 mg PO DAILY cyanocobalamin (vitamin B-12) 1,000 mcg Tablet 1,000 mcg PO DAILY duloxetine 60 mg capsule,delayed release(DR/EC) 60 mg PO DAILY Metamucil 3.4 gram/5.4 gram powder 1 tbsp PO DAILY Qty: 660 0RF Rx Instructions: mix into at least 8 oz of water or juice before administering pregabalin 300 mg capsule 300 mg PO BID (DME) blood sugar diagnostic Strip See Rx Instructions Not Applicable BID Qty: 10 Rx Instructions: As directed (DME) blood-glucose meter Kit See Rx Instructions .ROUTE .MEDSUPPLY Qty: 1 Rx Instructions: As directed bupropion HCl 300 mg tablet extended release 24 hr 300 mg PO QAM lamotrigine 200 mg tablet 200 mg PO BID (DME) lancets [FreeStyle Lancets] 28 gauge misc See Rx Instructions topical BID Qty: 100 Rx Instructions: As directed metformin 500 mg tablet extended release 24 hr 500 mg PO ONCE carbamazepine 400 mg tablet extended release 12 hr 400 mg PO DAILY naproxen 500 mg tablet 500 mg PO BID quetiapine 50 mg tablet 50 - 100 mg PO BEDTIME prazosin 2 mg capsule 2 mg PO BEDTIME ibuprofen 600 mg tablet 600 mg PO Q6H PRN (Reason: Pain) Interventions: ED Discharge Assessment Last Done: 04/02/25 00:55 Discharge Date/Time: 04/02/25 01:00 Print Language: Romanian
[2025-04-01 20:42] VITALS: BP 111/65; PULSE 67; RESP 16; TEMP 36.6; O2SAT 98; BMI 22.8
[2025-04-01 21:06] LABS: MANUAL DIFF FLAG NO
[2025-04-01 21:08] LABS: Hematocrit 33.7 % (42.0-52.0); Hemoglobin 11.9 g/dl (14.0-18.0); Imm Gran Abs Auto 0.02 X10*3/uL (0.00-0.03); Imm Gran Pct Auto 0.3 % (0.0-0.4); Lymphocytes Absolute Auto 1.9 X10*3/uL (1.2-4.9); Mean Corpuscular HGB Conc 35.3 g/dl (31.0-36.0); Mean Corpuscular Hemoglobin 30.8 pg (27.0-33.0); Mean Corpuscular Volume 87.3 fL (80.0-98.0); NRBC Abs Auto 0.000 X10*3/uL (0.0-0.012); NRBC Pct Auto 0.0 /100WBC (0.0-0.2); Platelet Count 167 X10*3/uL (160-400); Red Blood Count 3.86 X10*6/uL (4.60-5.80); White Blood Count 7.0 X10*3/uL (4.8-10.8)
[2025-04-01 21:21] LABS: Alanine Aminotransferase 16 U/L (0-40); Albumin Level 4.7 g/dL (3.5-5.0); Alkaline Phosphatase 107 U/L (39-117); Anion Gap 11 (12-20); Aspartate Amino Transferase 25 U/L (5-37); Blood Urea Nitrogen 15 mg/dL (9-16); Calcium 9.1 mg/dL (8.4-10.2); Carbon Dioxide 30 mmol/L (22-29); Chloride 105 mmol/L (96-108); Creatinine Clr Calc Pharmacy 75.5; Estimated Glomerular Filt Rate > 60; Potassium 4.8 mmol/L (3.3-5.1); Sodium 141 mmol/L (135-145); Total Protein 6.9 g/dL (6.5-8.0)
[2025-04-01 21:31] LABS: Troponin-I High Sensitivity < 2.7 ng/L (<3.5-35.0)
[2025-04-01 23:52] VITALS: BP 130/77; PULSE 65; RESP 14; TEMP 36.5; O2SAT 97
[2025-04-02 00:55] VITALS: BP 0/0; PULSE 0; RESP 0; TEMP -17.7; TEMP 0; O2SAT 0
[2025-04-02] MEDS: Lidocaine 4 % Patch ADH..PATCH 1 PATCH TRANSDERMA (00:58)
[2025-04-02 01:00] VITALS: BP 136/76; PULSE 56; RESP 16; TEMP -17.7; TEMP 0; O2SAT 97
== END 2025-04-02 01:00 | disposition home or self-care (01) ==
PROVIDERS: Registered Nurse Emergency; Emergency Provider Emergency Medicine; PCP Internal Medicine
DX: M75.42 Impingement syndrome of left shoulder (principal); M79.7 Fibromyalgia; M54.50 Low back pain, unspecified
CPT/HCPCS: 36415; 71046; 80053; 84484; 85025; 93005; 99283; 99285

== ENCOUNTER → 2025-04-01 20:25 | Outpatient (BNV) | payer OTHER, SELFPAY | PROVIDERS: Emergency Provider Emergency Medicine; PCP Internal Medicine; Visit Provider Internal Medicine | DX: R94.31 Abnormal electrocardiogram [ECG] [EKG] (principal); R07.9 Chest pain, unspecified | CPT/HCPCS: 93010 ==

== ENCOUNTER → 2025-04-01 20:27 | Outpatient (BNV) | payer OTHER, SELFPAY | PROVIDERS: PCP Internal Medicine; Visit Provider Radiology Neuroradiology | DX: J98.11 Atelectasis (principal) | CPT/HCPCS: 71046 ==

== ENCOUNTER 2025-04-06 09:43 | Outpatient (AMB) | payer OTHER, SELFPAY ==
--- NOTE | 2025-04-06 09:50 | MHC.OFFVIS ---
Vital Signs 04/06/25 10:20 Height 6 ft Weight 172 lb BMI 23.3 BP 101/61 Blood Pressure Location Rt brachial Position Sitting Pulse 80 Pulse Source Pulse Oximeter Pulse Oximetry (%) 97 Oxygen Delivery Method Room Air Intake Visit Reasons: ITDD Refill per Dr. 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 Denies any recent cough, cold, infection, fever or other significant changes in medical history since last office visit. PRIOR 02/09/25 Dr. Maldonado: Linus is today in my office for the intrathecal pain pump refill. He reports pain improvement. He reports that several minutes after he starts his daily bolus he feels numbness surrounding his abdomen. He is asking me if it is normal. I explained to him that this is exactly what the pain pump does and this is how it relieves his pain. He reports excellent pain relief. He reports good mobility excellent activities of daily living, very good social interactions. He reports that 1 dose of PTM lasts him as much as 6-7 hours. He requests me to increase the dose of the PTM a little bit. I will increase the dose of the PTM today for the patient. He is very satisfied with the treatment. see the full pump refill as below. His saturation was increased to 10 milligrams/mL and his new pump refill will be in 56 days. Prior: Linus presents back to the office today for follow-up. He was last seen here 03/14/2023 where he underwent injection for greater trochanteric bursitis. He reports since the injection he has no longer having pain to the lateral thigh. Today he is complaining of pain to the left lower back. Previously had left SI joint fusion, he also has sacral nerve stimulator, the device is near the area of his pain. He is adamant that the pain is not related to the device. Pain is worse with moving, bending, twisting and palpation. He does not have any pain to the groin. He does report some radiation of the pain to his left thigh posteriorly Currently he is using THC for his pain Prior: Linus is very pleasant 52 years old gentleman who is in my office again with new complaint. He reports that pain with movement related to sacroiliac joint on the left with was addressed with left SI joint fusion performed on 09/07/2022 is not bothering him anymore. However he reports that 2 weeks ago experience pain in the left side of the lower back radiating to the left flank. He reports the pain is getting more severe his torso flexion and rotation. He has been implanted sacral nerve stimulation device near this area so the trigger point injections are potentially risky for disruption of the stimulating leads. It sound to me that the patient is suffering from myofascial pain syndrome. To begin his treatment I offered him to start him on muscle relaxant tizanidine 2 mg t.i.d.. If this does will help him minimally without side effects I will increase the doses of the tizanidine. We agreed that he will give us a call in couple of weeks and if pain is continue to bother him schedule yet 1 more appointment. Prior: ? He received bilateral sacroiliac joint injections diagnostic with ropivacaine and he had 100% pain relief for the 1st 7 hours after the injection. He received diagnostic injection on 08/07/2022.? [facility] Medical History (Updated 04/06/25 @ 10:28 by WING Mccullough) History of COVID-19 Low back pain Peripheral neuropathy Arthritis Unintentional weight loss PTSD (post-traumatic stress disorder) Hematuria Left lower quadrant pain Urinary frequency Type 2 diabetes mellitus with unspecified complications Other obstructive and reflux uropathy Benign prostatic hyperplasia with lower urinary tract symptoms Urgency incontinence Hypercalcemia Surgical History S/P fusion of sacroiliac joint History of esophagogastroduodenoscopy (EGD) Anal fissure History of surgery Hx of cystoscopy Hx of cardiac catheterization History of prostate surgery Hx of cystoscopy Hx of cystoscopy H/O colonoscopy Social History Are you a primary customer care manager to a significant other at home: No Do you presently have visiting nurse or other home services: 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 No acute distress. Alert and oriented. Mood and affect appropriate. Clear speech. Follows and participates in conversation appropriately. Respiratory effort is unlabored. No cough. Able to transition from sit to stand unassisted. Ambulates with bilaterally normal heel strike and toe off. Eyes General: appearance normal, both eyes and all related structures Resp Effort & Inspection: normal respiratory effort, able to speak in complete sentences, no cough, no respiratory distress and symmetric chest movement Back/Spine/Pelvis Cervical Spine: cervical ROM normal and No Cervical spine tenderness Thoracic/Lumbar Spine: thoracic and lumbar spine normal to inspection, Thoracic/lumbar spine scar(s), Lasegue's sign negative, straight leg raise negative bilaterally, pain with thoraco-lumbar ROM, No thoracic spinal tenderness and No lumbar spinal tenderness Psych Appearance: grossly normal and well kempt Mental Status: mental status grossly normal Speech and movement: Normal speech and movement present and Clear speech present Affect: normal affect Attitude: cooperative Thought process: Normal thought process present Thought content: Normal thought content present, suicidality (none), no homicidality and No Depressive thoughts present Insight: Good insight present (Psych) Judgement: Good judgement present (Psych) Office Procedures Details: - Obtained informed consent and patient agreement. Time out complete. - Patient was positioned in the prone position. - Pump pocket site identified on the right lower back, cleaned with Chloraprep and prepared. - Accessed the pump with a 22-gauge needle to aspirate 2 mL of existing medication. - Connected new syringe for medication refill; injected Bupivacaine 10 mg/ml was compounded by [facility] pharmacy and arrived in a 20cc syringe. -Delivery ensured through interval aspiration. Needle removed and site covered with sterile dressing. Pump programmed as per protocol with updated medication volume and same dose parameters. - Identified next refill date as May 29, 2025. - No complications encountered and discharged in stable condition. 45524 - Refill Procedure code (CPT) selection complete Assessment & Plan Assessment & Plan (1) Chronic pain syndrome: Code(s): G89.4 - Chronic pain syndrome Category: Medical (2) Presence of intrathecal pump: Code(s): Z97.8 - Presence of other specified devices Category: Medical (3) Pain of both sacroiliac joints: Code(s): M53.3 - Sacrococcygeal disorders, not elsewhere classified Category: Medical (4) Osteoarthritis of hips, bilateral: Code(s): M16.0 - Bilateral primary osteoarthritis of hip Category: Medical (5) Myofascial pain syndrome: Code(s): M79.18 - Myalgia, other site Category: Medical (6) S/P fusion of sacroiliac joint: Code(s): Z98.1 - Arthrodesis status Category: Surgical (7) Low back pain: Code(s): M54.50 - Low back pain, unspecified Category: Medical Plan Continue with current pump settings, follow up with Dr. Maldonado for potential adjustment for dose parameters increase. Next refill scheduled for 05/27/2025. Instructed patient to monitor for signs of infection, withdrawal symptoms, or pump alarms, and to seek immediate care if symptoms occur. All questions and concerns have been answered and patient agreed with the plan. Follow up as needed. Orders: Orders AMB Intrathecal Drug Delivery System Today G89.4 - Chronic pain syndrome, Z97.8 - Presence of other specified devices Coding Level of Care Code Est Pt Level 3 (01990) Procedure Only Diagnoses Chronic pain syndrome G89.4 Presence of intrathecal pump Z97.8 Pain of both sacroiliac joints M53.3 Osteoarthritis of hips, bilateral M16.0 Myofascial pain syndrome M79.18 S/P fusion of sacroiliac joint Z98.1 Low back pain M54.50 CPT Codes Intraethecal Drug Delivery System - CPT: 40163 - Refill ([id number])
[2025-04-06 10:20] VITALS: BP 101/61; PULSE 80; O2SAT 97; BMI 23.3
== END 2025-04-06 10:25 | disposition home or self-care (01) ==
LOC: HO.PMC 09:43
PROVIDERS: PCP Internal Medicine; Visit Provider Nurse Practitioner Family
DX: G89.4 Chronic pain syndrome (principal); M53.3 Sacrococcygeal disorders, not elsewhere classified; M16.0 Bilateral primary osteoarthritis of hip; Z98.1 Arthrodesis status; Z45.1 Encounter for adjustment and management of infusion pump; M79.18 Myalgia, other site; M54.50 Low back pain, unspecified
CPT/HCPCS: 62370; 99213

== ENCOUNTER → 2025-04-06 09:43 | Outpatient (BNVA) | payer OTHER, SELFPAY | PROVIDERS: PCP Internal Medicine; Visit Provider Nurse Practitioner Family | DX: Z45.1 Encounter for adjustment and management of infusion pump (principal); G89.4 Chronic pain syndrome; M53.3 Sacrococcygeal disorders, not elsewhere classified; M16.0 Bilateral primary osteoarthritis of hip; M79.18 Myalgia, other site; M54.50 Low back pain, unspecified; Z98.1 Arthrodesis status; Z97.8 Presence of other specified devices | CPT/HCPCS: 62370; 99212 ==

== ENCOUNTER 2025-04-21 10:45 | Outpatient (AMB) | payer OTHER, SELFPAY ==
--- NOTE | 2025-04-21 10:51 | MHC.OFFVIS ---
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 He reports pain improvement on the current doses of the medication however he has only 1 dose in 24 hours of 2.9 mg of bupivacaine, he reports that in 12 hours after the administration of the dose he starts to feel pain coming back. The pump was interrogated today and the dose was left as it is however 1 more dose of on demand bupivacaine was added to the current regimen. I will schedule this patient for new pump refill on May 12 because now he will receive twice as much medication per day. I will request new concentration of the medication for the patient with bupivacaine concentration of 20 milligrams/mL. Prior: Linus presents back to the office today for follow-up. He was last seen here 03/14/2023 where he underwent injection for greater trochanteric bursitis. He reports since the injection he has no longer having pain to the lateral thigh. Today he is complaining of pain to the left lower back. Previously had left SI joint fusion, he also has sacral nerve stimulator, the device is near the area of his pain. He is adamant that the pain is not related to the device. Pain is worse with moving, bending, twisting and palpation. He does not have any pain to the groin. He does report some radiation of the pain to his left thigh posteriorly Currently he is using THC for his pain Prior: Linus is very pleasant 52 years old gentleman who is in my office again with new complaint. He reports that pain with movement related to sacroiliac joint on the left with was addressed with left SI joint fusion performed on 09/07/2022 is not bothering him anymore. However he reports that 2 weeks ago experience pain in the left side of the lower back radiating to the left flank. He reports the pain is getting more severe his torso flexion and rotation. He has been implanted sacral nerve stimulation device near this area so the trigger point injections are potentially risky for disruption of the stimulating leads. It sound to me that the patient is suffering from myofascial pain syndrome. To begin his treatment I offered him to start him on muscle relaxant tizanidine 2 mg t.i.d.. If this does will help him minimally without side effects I will increase the doses of the tizanidine. We agreed that he will give us a call in couple of weeks and if pain is continue to bother him schedule yet 1 more appointment. Prior: ? He received bilateral sacroiliac joint injections diagnostic with ropivacaine and he had 100% pain relief for the 1st 7 hours after the injection. He received diagnostic injection on 08/07/2022.? [facility] Medical History (Updated 04/06/25 @ 10:28 by WING Mccullough) History of COVID-19 Low back pain Peripheral neuropathy Arthritis Unintentional weight loss PTSD (post-traumatic stress disorder) Hematuria Left lower quadrant pain Urinary frequency Type 2 diabetes mellitus with unspecified complications Other obstructive and reflux uropathy Benign prostatic hyperplasia with lower urinary tract symptoms Urgency incontinence Hypercalcemia Surgical History S/P fusion of sacroiliac joint History of esophagogastroduodenoscopy (EGD) Anal fissure History of surgery Hx of cystoscopy Hx of cardiac catheterization History of prostate surgery Hx of cystoscopy Hx of cystoscopy H/O colonoscopy Social History Are you a primary date night caregiver to a significant other at home: No Do you presently have 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 Answers questions appropriately. Fully engaged in examination. Skin: warm, dry, intact without visible rashes or lesions. HEENT: Normocephalic. Conjuntivae clear without exudate. Sclera non-icteric. Hearing intact. Cardiac: External chest normal in appearance. Respiratory: No signs of trauma. No signs of respiratory distress. No cough, audible wheezing or stridor. Abdomen: without gross distension. MS: Well-healed surgical scar left lower back Tenderness over left PSIS Gaenslen positive on the left SI compression positive on the left TYRESE positive on the left Thigh thrust positive on the left Nontender over midline lumbar vertebrae and lumbar paraspinal muscles SLR negative bilaterally Neurological: Oriented to person, place, time and situation. Thought process intact. No gait abnormalities appreciated. Psychiatric: Appropriate mood and affect. Good judgment and insight. Assessment & Plan Assessment & Plan (1) Chronic pain syndrome: Code(s): G89.4 - Chronic pain syndrome Category: Medical (2) Presence of intrathecal pump: Code(s): Z97.8 - Presence of other specified devices Category: Medical (3) Pain of both sacroiliac joints: Code(s): M53.3 - Sacrococcygeal disorders, not elsewhere classified Category: Medical (4) Osteoarthritis of hips, bilateral: Code(s): M16.0 - Bilateral primary osteoarthritis of hip Category: Medical (5) Myofascial pain syndrome: Code(s): M79.18 - Myalgia, other site Category: Medical (6) S/P fusion of sacroiliac joint: Code(s): Z98.1 - Arthrodesis status Category: Surgical (7) Low back pain: Code(s): M54.50 - Low back pain, unspecified Category: Medical Plan: Pain pump adjustment. The pain pump was interrogated today he had 15.5 mL of this solution in the pump. Continuous rate of bupivacaine was left the same 0.481 mg with on demand 2.898 mg bupivacaine dose once in 24 hours. It was changed today for 2 doses once in 12 hours. The patient will be invited for the next pump refill. The new concentration will be 20 mg of bupivacaine per mL in 20 mL of preservative-free normal saline Plan Linus is very pleasant 55 years old gentleman who is suffering from chronic pain secondary to widespread arthritis.. He is status post sacroiliac joint fusion, he is suffering from bilateral trochanteric bursitis of the hips, he is suffering from spondylosis of the lumbar spine. He received pain pump to treat his pain with bupivacaine medication as the pain management solution. He came today for pump adjustment. Pump adjustments see as above. Coding Level of Care Code Est Pt Level 3 (62512) Procedure Only Diagnoses Chronic pain syndrome G89.4 Presence of intrathecal pump Z97.8 Pain of both sacroiliac joints M53.3 Osteoarthritis of hips, bilateral M16.0 Myofascial pain syndrome M79.18 S/P fusion of sacroiliac joint Z98.1 Low back pain M54.50
[2025-04-21 10:52] VITALS: BP 124/76; PULSE 83; RESP 18; O2SAT 96
--- OUTSIDE RECORDS SUMMARY | 2025-04-21 11:37 | XMS_ITS | Continuity of Care Document ---
Author Name [facility] Organization [facility] Care Team Providers Care Fastener Technologist Name Role Phone [facility] Unavailable Unavailable Problems Combined list of problems from Department of Defense and Veterans Affairs facilities. It does not include entries that were removed or entered in error. Problem Status Onset Date Problem Type Date of Resolution Comments Source Abdominal pain Active Condition Jun 272020 Entered By: ERNESTO BARROW Comment: ABD Pain; Etio?Jul 19, 2021 Entered By: ERNESTO BARROW Comment: Sees Private [facility] Dr Melendrez [phone] [place] Benign hypertension Active Condition SP [facility] Benign prostatic hyperplasia Active Condition Jul 19, 2021 Entered By: ERNESTO BARROW Comment: Sees [facility] Every 3-4 Months for BPHJul 19, 2021 Entered By: ERNESTO BARROW Comment: Last Visit to Private [facility] was JUN 15:Jul 19, 2021 Entered By: ERNESTO BARROW Comment: Office Ultrasound Neg for Suspicious Lesions; No Heme on UA in JUN 15 [place] Depression Active Condition Jul 19 Entered By: ERNESTO BARROW Comment: Depression, Anxiety, PTSDJul 19, 2021 Entered By: ERNESTO BARROW Comment: Sees Private [facility] Dr. Suarez [phone] at [facility] 2021 Entered By: ERNESTO BARROW Comment: No SI / [facility]ov 2020 Entered By: ERNESTO BARROW Comment: also Therapist Dr Green [facility] [phone] [place] Fibromyalgia Active Condition Jul 19, 2021 Entered By: ERNESTO BARROW Comment: Episodic Break-Throughs ; Severe when Sx Erupt; Affects Whole Body Jul 19, 2021 Entered By: ERNESTO BARROW Comment: Pain Management Dr So [facility] [phone] [place] Gordon hematuria Active Condition Jul 19, 2021 Entered By: ERNESTO BARROW Comment: [facility] Sandhu [phone][facility] Entered By: ERNESTO BARROW Comment: Denies Renal, Bladder CA; No Lithiasis; +BPH as of JUL 16[place]BAM Hypercholesterolemia Active Condition Jul 19, 2021 Entered By: ERNESTO BARROW Comment: h/o Elevated Lipids; On Crestor; Allergic to Other Statins [place] Overactive bladder Active Condition J 2021 Entered By: ERNESTO BARROW Comment: Sees [facility]; Gets Suprapubic BOTOX Inj.'s [place] Sciatica Active Condition Jul 19 Entered By: ERNESTO BARROW Comment: Discopathy, L-Spine; Radiates Left Leg, Down to LEFT Ankle [place] Screening for malignant neoplasm of colon done Active Condition Jul 19, 2021 Entered By: ERNESTO BARROW Comment: Initial Screen Colonoscopy 2020 at [facility];Jul 19, 2021 Entered By: ERNESTO BARROW Comment: Neg CRC or Polyps; repeat 2030 (sooner prn) [place] Shoulder pain Active Condition Jan Entered By: ERNESTO BARROW Comment: Left Shldr and L Elbow Pains: X-Rays [place] DEC 15 Unremarkable [place] Type 2 diabetes mellitus Active Condition Jul 19, 2021 Entered By: ERNESTO BARROW Comment: +Diabet Neuropathy Feet; Sees Neuro Outside [facility] 2020 Entered By: ERNESTO BARROW Comment: Private Neuro Dr Iris Quigley [facility] [phone] 2020 Entered By: ERNESTO BARROW Comment: on Carbamepazine, Lyrica, for NeuropathyJul 19, 2021 Entered By: ERNESTO BARROW Comment: Sees Private Ophth Once Yr (Month of Aug); no DR as of JUL 16 [place] Under care of doctor Active Condition Jul 19, 2021 Entered By: ERNESTO BARROW Comment: Private PCP Dr Melissa Quigley [facility] [phone] [place] Medications Combined list of outpatient medications from Department of Defense and Veterans Affairs facilities.Medications provided include 1) outpatient medications from the last 15 months, and 2) patient-reported medications. Medication Details Route Status Patient Instructions Prescription Expires Prescription Number Last Dispense Date Ordering Provider Order Date Order Qty Source BACLOFEN 20MG TAB TAKE ONE TABLET BY MOUTH ONCE DAILY ORAL ACTIVE DANIEL BARROW 2021 [facility] IELD BUPROPION HCL 300MG 24HR TAB,SA TAKE ONE TABLET BY MOUTH ONCE DAILY ORAL ACTIVE DANIEL BARROW 2021 [facility] IELD CARBAMAZEPI NE 200MG TAB TAKE ONE TABLET BY MOUTH ONCE DAILY [facility] IELD CLONAZEPAM 0.5MG TAB TAKE ONE TABLET BY MOUTH BEDTIME ORAL [facility] IELD CYANOCOBALA MIN 100MCG TAB TAKE ONE TABLET BY MOUTH ONCE DAILY [facility] spring IELD DULOXETINE HCL 30MG CAP,EC TAKE 3 CAPSULES BY MOUTH ONCE DAILY [facility] spring IELD LISINOPRIL 2.5MG TAB TAKE ONE TABLET BY MOUTH ONCE DAILY [facility] 2020 [facility] IELD METFORMIN HCL 1000MG TAB TAKE ONE TABLET BY MOUTH TWICE DAILY [facility] spring IELD NAPROXEN 500MG TAB TAKE ONE TABLET BY MOUTH TWICE DAILY NEEDED [facility]AL [facility] 2021 [facility] IELD OTHER CAP/TAB TAKE LYRICA 300 MG BY MOUTH TWICE DAILY [facility] 2021 [facility] IELD QUETIAPINE FUMARATE 25MG TAB TAKE ONE TABLET BY MOUTH BEDTIME [facility] 2020 [facility] IELD ROSUVASTATI N CA 20MG TAB TAKE ONE-HALF TABLET BY MOUTH ONCE DAILY [facility] 2020 [facility] IELD SITAGLIPTIN PHOSPHATE 100MG TAB TAKE ONE TABLET BY MOUTH ONCE DAILY ORAL [facility] 2021 [facility] IELD TAMSULOSIN HCL 0.4MG CAP TAKE 1 CAPSULE BY MOUTH BEDTIME [facility] 2020 [facility] IELD Allergies, Adverse Reactions, Alerts Combined list of allergies from Department of Defense and Veterans Affairs facilities. It does not include entries that were removed or entered in error. Substance Category Reaction Severity Reaction type Status Date Reported Comments Source No Known Allergies Drug allergy (disorder) active 2 [facility] Propensity to adverse reactions to drug (finding) Urticaria active 1 [facility] ZOCOR Propensity to adverse reactions to drug (finding) Low blood pressure, Muscle pain active 1 [facility] Immunizations Combined list of available immunizations from the Department of Defense and Veterans Affairs facilities. Immunization Series Date Given Administered By Site Reaction Lot Number CVX Code Drug Exhibition Carver Status Comments Source INFLUENZA, UNSPECIFIED FORMULATION 2022 88 complet ed HISTORICA L INFORMATI ON - FROM PATIENT'S WRITTEN RECORD, [facility] COVID-19 (MODERNA), MRNA, LNP-S, BIVALENT, PF, 50 MCG/0.5 ML OR 25MCG/0.25 ML DOSE 1 2022 229 complet ed HISTORICA L INFORMATI ON - FROM PATIENT'S WRITTEN RECORD, [facility] COVID-19 (PFIZER), MRNA, LNP-S, PF, 30 MCG/0.3 ML DOSE 3 2021 208 complet ed [facility] PNEUMOCOCCAL POLYSACCHARID E PPV23 2021 33 complet ed [place] ZOSTER RECOMBINANT 2 2021 187 complet ed [place] TDAP 2020 115 complet ed [facility] ZOSTER RECOMBINANT 1 2020 187 complet ed [facility] INFLUENZA, UNSPECIFIED FORMULATION 2020 88 complet ed [facility] COVID-19 (PFIZER), MRNA, LNP-S, PF, 30 MCG/0.3 ML DOSE 2 2020 208 complet ed [facility] COVID-19 (PFIZER), MRNA, LNP-S, PF, 30 MCG/0.3 ML DOSE 1 2020 208 complet ed [facility] Encounters Combined list of: 1) Encounters from Department of Veterans Affairs facilities going backup to the last 18 months, not all VA inpatient encounters are included; 2) Encounters from the Department of Defense facilities going backup to 280 months. Location Location Details Encounter Type Encounter Number Reason For Visit Attending Provider ADM Date DC Date Status Disposition Source [facility] Outpatient Encounter [id number] 10/09 [place] [facility] Encounter [id number] 10/09 [facility] [id number] 10/10 [facility] Out[facility]counter [id number] 12/01 [facility]counter [id number] 12/01 [facility]counter [id number] 12/03 [facility]counter [id number] 12/23 [facility] [id number] 12/23 [facility]counter [id number] 01/06 [facility] [id number] 01/09 [facility] Out[facility] Encounter [id number] 07/01 [facility] Social History Combined list of available smoking, tobacco, and other social history from Department of Defense and Veterans Affairs facilities. Social History Type Response Date Comment [facility] e Tobacco smoking status [facility] VA-TOBACCO FORMER USER 10/09/2023 [place] History of tobacco use VA-TOBACCO QUIT 15 YRS OR MORE 10/09/2023 [place] History of tobacco use DE-TOBACCO FORMER USER 07/19/2021 [facility] This section is an empty social history section. [facility] Advance Directives List of completed, amended, or rescinded Advance Directives on record at Department of Veterans Affairs facilities. An actual copy of the Directive is not included. Date Advance Directive Provider Source 09/20/2021 ADVANCE DIRECTIVE RADHA MADERA 07/14/2021 ADVANCE DIRECTIVE RADHA MADERA
== END 2025-04-21 11:12 | disposition home or self-care (01) ==
LOC: HO.PMC 10:46
PROVIDERS: PCP Internal Medicine; Visit Provider Anesthesiology
DX: G89.4 Chronic pain syndrome (principal); Z97.8 Presence of other specified devices; M53.3 Sacrococcygeal disorders, not elsewhere classified; M16.0 Bilateral primary osteoarthritis of hip; Z45.1 Encounter for adjustment and management of infusion pump; M79.18 Myalgia, other site; Z98.1 Arthrodesis status; M54.50 Low back pain, unspecified
CPT/HCPCS: 95991; 99213

== ENCOUNTER → 2025-04-21 10:45 | Outpatient (BNVA) | payer OTHER, SELFPAY | PROVIDERS: PCP Internal Medicine; Visit Provider Anesthesiology | DX: M79.18 Myalgia, other site (principal); M53.3 Sacrococcygeal disorders, not elsewhere classified; G89.4 Chronic pain syndrome; M54.50 Low back pain, unspecified; M16.0 Bilateral primary osteoarthritis of hip; Z98.1 Arthrodesis status; Z97.8 Presence of other specified devices | CPT/HCPCS: 99212 ==

== ENCOUNTER 2025-05-03 14:09 | Outpatient (REF) | payer OTHER, SELFPAY ==
[2025-05-03 15:54] LABS: Appearance Urine Cloudy; Glucose Urine UA Negative (Negative); PH 5.5 (5.0-9.0); Specific Gravity - Urine >= 1.030 (1.005-1.025); UMIC TRIGGER UA YES
== END 2025-05-03 14:10 | disposition home or self-care (01) ==
LOC: HO.LAB 14:09
PROVIDERS: PCP Internal Medicine; Visit Provider Nurse Practitioner Family
DX: N39.0 Urinary tract infection, site not specified (principal); R31.9 Hematuria, unspecified; R39.15 Urgency of urination; R35.0 Frequency of micturition
CPT/HCPCS: 81001; 87086; 87088; 87186

== ENCOUNTER 2025-05-12 13:13 | Outpatient (AMB) | payer OTHER, SELFPAY ==
[2025-05-12 13:30] VITALS: BP 124/87; PULSE 65; RESP 18; O2SAT 100; BMI 23.1
--- NOTE | 2025-05-12 13:30 | A.OFFVIS_ITS ---
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 He reports very stable pain condition reporting level of pain 1 to 2/10 on regular basis. He states that the pain pump is helping his pain in the great extent. He reports on minor discomfort in the area of the pump implant. It is recent implanted probably inv olves aseptic inflammation around the pump. I recommended him to acquire [id number] diclofenac gel and put it in the area of the pump during the daytime, during the nighttime he can apply lidocaine in the area of the pump. On inspection his area of the pump looks noninflamed: There is no redness, no pathological discharge, no swelling, no tenderness on palpation in the area of the scar. The scar is thin and well-formed. The pain pump is not bulging from under the skin. Prior: Linus presents back to the office today for follow-up. He was last seen here 03/14/2023 where he underwent injection for greater trochanteric bursitis. He reports since the injection he has no longer having pain to the lateral thigh. Today he is complaining of pain to the left lower back. Previously had left SI joint fusion, he also has sacral nerve stimulator, the device is near the area of his pain. He is adamant that the pain is not related to the device. Pain is worse with moving, bending, twisting and palpation. He does not have any pain to the groin. He does report some radiation of the pain to his left thigh posteriorly Currently he is using THC for his pain Prior: Linus is very pleasant 52 years old gentleman who is in my office again with new complaint. He reports that pain with movement related to sacroiliac joint on the left with was addressed with left SI joint fusion performed on 09/07/2022 is not bothering him anymore. However he reports that 2 weeks ago experience pain in the left side of the lower back radiating to the left flank. He reports the pain is getting more severe his torso flexion and rotation. He has been implanted sacral nerve stimulation device near this area so the trigger point injections are potentially risky for disruption of the stimulating leads. It sound to me that the patient is suffering from myofascial pain syndrome. To begin his treatment I offered him to start him on muscle relaxant tizanidine 2 mg t.i.d.. If this does will help him minimally without side effects I will increase the doses of the tizanidine. We agreed that he will give us a call in couple of weeks and if pain is continue to bother him schedule yet 1 more a ppointment. Prior: ? He received bilateral sacroiliac joint injections diagnostic with ropivacaine and he had 100% pain relief for the 1st 7 hours after the injection. He received diagnostic injection on 08/07/2022.? [facility] Medical History (Updated 04/06/25 @ 10:28 by WING Mccullough) History of COVID-19 Low back pain Peripheral neuropathy Arthritis Unintentional weight loss PTSD (post-traumatic stress disorder) Hematuria Left lower quadrant pain Urinary frequency Type 2 diabetes mellitus with unspecified complications Other obstructive and reflux uropathy Benign prostatic hyperplasia with lower urinary tract symptoms Urgency incontinence Hypercalcemia Surgical History S/P fusion of sacroiliac joint History of esophagogastroduodenoscopy (EGD) Anal fissure History of surgery Hx of cystoscopy Hx of cardiac catheterization History of prostate surgery Hx of cystoscopy Hx of cystoscopy H/O colonoscopy Social History Are you a primary physician assistant primary care to a significant other at home: No Do you presently have visiting nurse or other home services: Yes ([employer]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 Answers questions appropriately. Fully engaged in examination. Skin: warm, dry, intact without visible rashes or lesions. HEENT: Normocephalic. Conjuntivae clear without exudate. Sclera non-icteric. Hearing intact. Cardiac: External chest normal in appearance. Respiratory: No signs of trauma. No signs of respiratory distress. No cough, audible wheezing or stridor. Abdomen: without gross distension. MS: Well-healed surgical scar left lower back Tenderness over left PSIS Gaenslen positive on the left SI compression positive on the left TYRESE positive on the left Thigh thrust positive on the left Nontender over midline lumbar vertebrae and lumbar paraspinal muscles SLR negative bilaterally Neurological: Oriented to person, place, time and situation. Thought process intact. No gait abnormalities appreciated. Psychiatric: Appropriate mood and affect. Good judgment and insight. Results Reviewed Results Reviewed: 04/02/2024 CT/CT bony pelvis FINDINGS: PELVIS: No pelvic soft tissue mass or fluid collection. The visualized pelvic bowel loops are unremarkable. No bowel wall thickening or frontal change. No pelvic bowel obstruction. The distal ureters are unremarkable. Nondistended urinary bladder. Pelvic phleboliths and prostate calcifications. No pelvic lymphadenopathy. No significant pelvic wall hernia. Pain pump redemonstrated within the left subcutaneous tissues with the lead in the left pelvis, unchanged. OSSEOUS STRUCTURES: Orthopedic hardware redemonstrated within the left sacroiliac joint. No hardware fracture or perihardware lucency to suggest loosening or infection. No significant osseous bridging across the left sacroiliac joint. There are small marginal osteophytes with mild subchondral sclerosis. No periarticular erosion. Mild right sacral iliac joint space narrowing with anterior bridging osteophytes. No periarticular erosion. No acute fracture or dislocation. No concerning lytic or blastic osseous lesion. No evidence of femoral head avascular necrosis. IMPRESSION: 1. Orthopedic hardware redemonstrated within the left sacroiliac joint without evidence of hardware complication. No significant osseous bridging across the left sacroiliac joint. 2. Mild right sacroiliac osteoarthritis with anterior bridging osteophytes. EXAMINATION: XR PELVIS XR HIP, BILATERAL CLINICAL INFORMATION: Chronic pain syndrome. COMPARISON: Several fluoroscopic images of pelvis and SI joints are obtained 10/29/2022, 09/07/2022. TECHNIQUE: 2 views each hip. 2 views pelvis. FINDINGS: Left Hip: There is mild reduction left hip joint space but no bony erosive changes, fracture, dislocation or loose bodies. The soft tissues are normal. Incidental note is made of left sacral electrode for pain management. Right Hip: There is minimal loss of right hip joint space. No bony erosive changes, loose bodies or soft tissue swelling. AP Pelvis: There is normal symmetry of bilateral SI joints. Evidence of left SI joint fusion device IMPRESSION: 1. Mild early degenerative changes bilateral hip joints. No visible acute fracture, dislocation or subluxation seen. ? 2. There is evidence of left SI joint fusion device. Assessment & Plan Assessment & Plan (1) Left hip pain: Code(s): M25.552 - Pain in left hip Category: Medical (2) Pain of both sacroiliac joints: Code(s): M53.3 - Sacrococcygeal disorders, not elsewhere classified Category: Medical (3) Osteoarthritis of hips, bilateral: Code(s): M16.0 - Bilateral primary osteoarthritis of hip Category: Medical (4) Chronic pain syndrome: Code(s): G89.4 - Chronic pain syndrome Category: Medical (5) Myofascial pain syndrome: Code(s): M79.18 - Myalgia, other site Category: Medical (6) Myofascial pain syndrome of lumbar spine: Code(s): M79.18 - Myalgia, other site Category: Medical (7) Sacroiliac joint dysfunction of left side: Code(s): M53.3 - Sacrococcygeal disorders, not elsewhere classified Category: Medical (8) S/P fusion of sacroiliac joint: Code(s): Z98.1 - Arthrodesis status Category: Surgical Plan: Intrathecal pump refill. THE PATIENT CAME TODAY IN THE office FOR THE CHANGE OF THE MEDICATION IN his PAIN PUMP. The name and date of were verified and informed consent was obtained for the procedure. ?The pump was interrogated and the residual amount of fluid was found to be 4.8 mL. HE WAS POSITIONED prone on the bed. THE AREA OF THE INTRATHECAL PUMP WAS PREPPED WITH CHLORAPREP. The fenestrated drape was sterilely applied over the area of the pump. Sterile gloves were worn and of the aspiration system was assembled containing 2 in 22 gauge noncoring needle, the needle was connected to extension tubing which was connected to the 20 cc sterile syringe. The pain pump was palpated under the skin in the patient's left anterior abdomen area. The ultrasound probe was applied and the central plug was detected under the skin on direct ultrasound view. The point on the skin corresponding to the area of the central plug was marked with blue surgical marker. After that the area of the pump was prepped with ChloraPrep and draped with fenestrated drape. The needle was inserted through the skin and the central plug of the pain pump and fluid was aspirated. The clear fluid was going into the syringe the total amount of the fluid was 4.0 mL .. After that a new batch? of medication was obtained which was containing new dose of bupivacaine 20mg per ml. The admixture was made in 20 cc syringe prepared by [facility] compounding pharmacy. The syringe was connected to the bacterial filter, and then connected to the extension tubing. After that the medication in the syringe was slowly instilled into the pump with aspirations at 15 and 5 cc harper.? The pump was reprogrammed as it was previously set for the doses of bupivacaine 0.926 mg mg per day (the increase from 0.481 mg a day because of the increased concentration and pump inability to deliver the smaller dose) with corresponding dose of bupivacaine.? The patient was given one dose of the PTM with bupivacaine 2.898 mg given over the 50 minutes. The patient can not use this kind of a bolus every 12 hours with total administration in 24 hours 2 doses. Plan Linus will be scheduled for next refill in 56 days. For the next refill I would need to bring the concentration of the bupivacaine up to 20 milligrams/mL in preservative-free normal saline 20 mL. Coding Level of Care Code Est Pt Level 3 (93709) Procedure Only Diagnoses Left hip pain M25.552 Pain of both sacroiliac joints M53.3 Osteoarthritis of hips, bilateral M16.0 Chronic pain syndrome G89.4 Myofascial pain syndrome M79.18 Myofascial pain syndrome of lumbar spine M79.18 Sacroiliac joint dysfunction of left side M53.3 S/P fusion of sacroiliac joint Z98.1
== END 2025-05-12 14:03 | disposition home or self-care (01) ==
PROVIDERS: PCP Internal Medicine; Visit Provider Anesthesiology
DX: M25.552 Pain in left hip (principal); M53.3 Sacrococcygeal disorders, not elsewhere classified; M16.0 Bilateral primary osteoarthritis of hip; G89.4 Chronic pain syndrome; Z45.1 Encounter for adjustment and management of infusion pump; M79.18 Myalgia, other site; Z98.1 Arthrodesis status
CPT/HCPCS: 62370; 99213

== ENCOUNTER → 2025-05-12 13:13 | Outpatient (BNVA) | payer OTHER, SELFPAY | PROVIDERS: PCP Internal Medicine; Visit Provider Anesthesiology | DX: Z45.89 Encounter for adjustment and management of other implanted devices (principal); M53.3 Sacrococcygeal disorders, not elsewhere classified; M16.0 Bilateral primary osteoarthritis of hip; M79.18 Myalgia, other site; G89.4 Chronic pain syndrome; Z98.1 Arthrodesis status; Z79.891 Long term (current) use of opiate analgesic | CPT/HCPCS: 62370; 99212 ==

== ENCOUNTER 2025-06-08 11:26 | Outpatient (REF) | payer OTHER, SELFPAY ==
[2025-06-08 12:59] LABS: Alanine Aminotransferase 15 U/L (0-40); Albumin Level 4.7 g/dL (3.5-5.0); Alkaline Phosphatase 125 U/L (39-117); Anion Gap 12 (12-20); Aspartate Amino Transferase 17 U/L (5-37); Blood Urea Nitrogen 17 mg/dL (9-16); Calcium 9.7 mg/dL (8.4-10.2); Carbon Dioxide 28 mmol/L (22-29); Chloride 104 mmol/L (96-108); Estimated Glomerular Filt Rate > 60; Potassium 3.9 mmol/L (3.3-5.1); Sodium 140 mmol/L (135-145); Total Protein 7.2 g/dL (6.5-8.0)
== END 2025-06-08 11:27 | disposition home or self-care (01) ==
LOC: HO.LAB 11:26
PROVIDERS: PCP Internal Medicine; Visit Provider Internal Medicine
DX: I10 Essential (primary) hypertension (principal); E11.9 Type 2 diabetes mellitus without complications; E78.00 Pure hypercholesterolemia, unspecified; G60.0 Hereditary motor and sensory neuropathy
CPT/HCPCS: 36415; 80053; 83036

== ENCOUNTER 2025-07-07 13:16 | Outpatient (AMB) | payer OTHER, SELFPAY ==
--- NOTE | 2025-07-07 13:27 | A.OFFVIS_ITS ---
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 He reports very stable pain condition reporting level of pain 1 to 2/10 on regular basis in the lower back.. He reports pain in the area of the knee on the posterior surface of the knee with radiation to the lower thigh and upper part of the lower leg on the right. I will send him for x-ray of the right knee. If any changes will be on that knee I will offer him probable steroid injections. The pain pump refill see as below. For the lower back pain he is doing very well on bupivacaine infusion. Prior: Linus presents back to the office today for follow-up. He was last seen here 03/14/2023 where he underwent injection for greater trochanteric bursitis. He reports since the injection he has no longer having pain to the lateral thigh. Today he is complaining of pain to the left lower back. Previously had left SI joint fusion, he also has sacral nerve stimulator, the device is near the area of his pain. He is adamant that the pain is not related to the device. Pain is worse with moving, bending, twisting and palpation. He does not have any pain to the groin. He does report some radiation of the pain to his left thigh posteriorly Currently he is using THC for his pain Prior: Linus is very pleasant 52 years old gentleman who is in my office again with new complaint. He reports that pain with movement related to sacroiliac joint on the left with was addressed with left SI joint fusion performed on 09/07/2022 is not bothering him anymore. However he reports that 2 weeks ago experience pain in the left side of the lower back radiating to the left flank. He reports the pain is getting more severe his torso flexion and rotation. He has been implanted sacral nerve stimulation device near this area so the trigger point injections are potentially risky for disruption of the stimulating leads. It sound to me that the patient is suffering from myofascial pain syndrome. To begin his treatment I offered him to start him on muscle relaxant tizanidine 2 mg t.i.d.. If this does will help him minimally without side effects I will increase the doses of the tizanidine. We agreed that he will give us a call in couple of weeks and if pain is continue to bother him schedule yet 1 more appointment. Prior: ? He received bilateral sacroiliac joint injections diagnostic with ropivacaine and he had 100% pain relief for the 1st 7 hours after the injection. He received diagnostic injection on 08/07/2022.? [facility] Medical History (Updated 07/07/25 @ 13:53 by Jose R Maldonado MD) History of COVID-19 Low back pain Peripheral neuropathy Arthritis Unintentional weight loss PTSD (post-traumatic stress disorder) Hematuria Left lower quadrant pain Urinary frequency Type 2 diabetes mellitus with unspecified complications Other obstructive and reflux uropathy Benign prostatic hyperplasia with lower urinary tract symptoms Urgency incontinence Hypercalcemia Surgical History S/P fusion of sacroiliac joint History of esophagogastroduodenoscopy (EGD) Anal fissure History of surgery Hx of cystoscopy Hx of cardiac catheterization History of prostate surgery Hx of cystoscopy Hx of cystoscopy H/O colonoscopy Social History Are you a primary health care liaison to a significant other at home: No Do you presently have visiting nurse or other home services: Yes ([employer]) Alcohol intake: never Patient Tobacco Use Status: Former Tobacco user Tobacco use type: Cigarette Second Hand Smoke Exposure: No Substance Use Type: Marijuana service: Yes Current occupational status: unemployed Current occupation: left handed Review of Systems Const All systems reviewed & are unremarkable except as noted in HPI and below Physical Exam Vital Signs: Last Vital Signs Pulse 70 07/07/25 13:28 Resp 16 07/07/25 13:28 BP 107/70 07/07/25 13:28 Pulse Ox 98 07/07/25 13:28 Oxygen Delivery Method Room Air 07/07/25 13:28 BMI result Body Mass Index 22.9 General: awake, alert, oriented. Answers questions appropriately. Fully engaged in examination. Skin: warm, dry, intact without visible rashes or lesions. HEENT: Normocephalic. Conjuntivae clear without exudate. Sclera non-icteric. Hearing intact. Cardiac: External chest normal in appearance. Respiratory: No signs of trauma. No signs of respiratory distress. No cough, audible wheezing or stridor. Abdomen: without gross distension. MS: Well-healed surgical scar left lower back Tenderness over left PSIS Gaenslen positive on the left SI compression positive on the left TYRESE positive on the left Thigh thrust positive on the left Nontender over midline lumbar vertebrae and lumbar paraspinal muscles SLR negative bilaterally Neurological: Oriented to person, place, time and situation. Thought process intact. No gait abnormalities appreciated. Psychiatric: Appropriate mood and affect. Good judgment and insight. Assessment & Plan Assessment & Plan (1) Osteoarthritis of right knee: Code(s): M17.11 - Unilateral primary osteoarthritis, right knee Category: Medical (2) Left hip pain: Code(s): M25.552 - Pain in left hip Category: Medical (3) Pain of both sacroiliac joints: Code(s): M53.3 - Sacrococcygeal disorders, not elsewhere classified Category: Medical (4) Osteoarthritis of hips, bilateral: Code(s): M16.0 - Bilateral primary osteoarthritis of hip Category: Medical (5) Chronic pain syndrome: Code(s): G89.4 - Chronic pain syndrome Category: Medical (6) Myofascial pain syndrome: Code(s): M79.18 - Myalgia, other site Category: Medical (7) Myofascial pain syndrome of lumbar spine: Code(s): M79.18 - Myalgia, other site Category: Medical (8) Sacroiliac joint dysfunction of left side: Code(s): M53.3 - Sacrococcygeal disorders, not elsewhere classified Category: Medical (9) S/P fusion of sacroiliac joint: Code(s): Z98.1 - Arthrodesis status Category: Surgical Plan: Intrathecal pump refill. THE PATIENT CAME TODAY IN THE office FOR THE CHANGE OF THE MEDICATION IN his PAIN PUMP. The name and date of were verified and informed consent was obtained for the procedure. ?The pump was interrogated and the residual amount of fluid was found to be 3.1 mL. HE WAS POSITIONED prone on the bed. THE AREA OF THE INTRATHECAL PUMP WAS PREPPED WITH CHLORAPREP. The fenestrated drape was sterilely applied over the area of the pump. Sterile gloves were worn and of the aspiration system was assembled containing 2 in 22 gauge noncoring needle, the needle was connected to extension tubing which was connected to the 20 cc sterile syringe. The pain pump was palpated under the skin in the patient's left anterior abdomen area. The ultrasound probe was applied and the central plug was detected under the skin on direct ultrasound view. The point on the skin corresponding to the area of the central plug was marked with blue surgical marker. After that the area of the pump was prepped with ChloraPrep and draped with fenestrated drape. The needle was inserted through the skin and the central plug of the pain pump and fluid was aspirated. The clear fluid was going into the syringe the total amount of the fluid was 2.9 mL .. After that a new batch? of medication was obtained which was containing new dose of bupivacaine 20mg per ml. The admixture was made in 20 cc syringe prepared by [facility] compounding pharmacy. The syringe was connected to the bacterial filter, and then connected to the extension tubing. After that the medication in the syringe was slowly instilled into the pump with aspirations at 15 and 5 cc harper.? The pump was reprogrammed as it was previously set for the doses of bupivacaine 0.926 mg mg per day (the increase from 0.481 mg a day because of the increased concentration and pump inability to deliver the smaller dose) with corresponding dose of bupivacaine.? The patient was given one dose of the PTM with bupivacaine 2.898 mg given over the 50 minutes. The patient can not use this kind of a bolus every 12 hours with total administration in 24 hours 2 doses. Plan Linus will be scheduled for next refill in 56 days. I will continue current concentration of the bupivacaine 20 mg per mL in 20 mL of preservative-free normal saline. I sent him for x-ray of the right knee see discussion as above. At his next visit I will evaluate x-ray of the right knee and we will decide what procedures or medications we can try to help the pain in the knee. Orders: Orders XR knee RT 3V Today M17.11 - Unilateral primary osteoarthritis, right knee Coding Level of Care Code Est Pt Level 3 (62376) Procedure Only Diagnoses Osteoarthritis of right knee M17.11 Left hip pain M25.552 Pain of both sacroiliac joints M53.3 Osteoarthritis of hips, bilateral M16.0 Chronic pain syndrome G89.4 Myofascial pain syndrome M79.18 Myofascial pain syndrome of lumbar spine M79.18 Sacroiliac joint dysfunction of left side M53.3 S/P fusion of sacroiliac joint Z98.1
[2025-07-07 13:28] VITALS: BP 107/70; PULSE 70; RESP 16; O2SAT 98; BMI 22.9
== END 2025-07-07 13:54 | disposition home or self-care (01) ==
LOC: HO.PMC 13:17
PROVIDERS: PCP Internal Medicine; Visit Provider Anesthesiology
DX: M17.11 Unilateral primary osteoarthritis, right knee (principal); M25.552 Pain in left hip; M53.3 Sacrococcygeal disorders, not elsewhere classified; G89.4 Chronic pain syndrome; M16.0 Bilateral primary osteoarthritis of hip; M79.18 Myalgia, other site; Z98.1 Arthrodesis status; Z45.1 Encounter for adjustment and management of infusion pump
CPT/HCPCS: 62370; 99213

== ENCOUNTER → 2025-07-07 13:16 | Outpatient (BNVA) | payer OTHER, SELFPAY | PROVIDERS: PCP Internal Medicine; Visit Provider Anesthesiology | DX: Z45.1 Encounter for adjustment and management of infusion pump (principal); M17.11 Unilateral primary osteoarthritis, right knee; M25.552 Pain in left hip; M53.3 Sacrococcygeal disorders, not elsewhere classified; M16.0 Bilateral primary osteoarthritis of hip; G89.4 Chronic pain syndrome; M79.18 Myalgia, other site; Z98.1 Arthrodesis status; Z79.891 Long term (current) use of opiate analgesic | CPT/HCPCS: 62370; 99212 ==

== ENCOUNTER 2025-07-16 11:44 | Outpatient (REF) | payer OTHER, SELFPAY ==
--- NOTE | ~2025-07-16 | XR_ITS ---
EXAMINATION: XR KNEE 3 VIEWS RIGHT HISTORY: M17.11 - Unilateral primary osteoarthritis, right knee COMPARISON: There are no prior studies available for comparison. FINDINGS: Three views of the right knee are submitted. Osseous mineralization is normal. There is no fracture or dislocation. The joint spaces are preserved. The soft tissues are unremarkable. There is no joint effusion. XR/XR knee RT 3V IMPRESSION: Unremarkable examination of the right knee. Electronically signed by: Nehemias Quiñonez MD 07/16/2025 12:44 PM EST
== END 2025-07-16 11:45 | disposition home or self-care (01) ==
LOC: HO.XRAY 11:44
PROVIDERS: Visit Provider Anesthesiology
DX: M17.11 Unilateral primary osteoarthritis, right knee (principal)
CPT/HCPCS: 73562

== ENCOUNTER → 2025-07-16 11:50 | Outpatient (BNV) | payer OTHER, SELFPAY | PROVIDERS: Visit Provider Radiology Diagnostic Radiology | DX: M17.11 Unilateral primary osteoarthritis, right knee (principal) | CPT/HCPCS: 73562 ==

== ENCOUNTER 2025-08-07 09:04 | Outpatient (REF) | payer OTHER, SELFPAY ==
--- NOTE | ~2025-08-07 | XR_ITS ---
CLINICAL HISTORY: N20.0 - Calculus of kidney 1 view abdomen Comparison: None Findings: Normal bowel gas pattern. Normal stool quantity. No abnormal calcifications. Specifically, no definable urolithiasis. No pneumoperitoneum or pneumatosis. Bones unremarkable. Neurostimulator hardware overlies left hemipelvis. Apparent medication pump overlies the right hemipelvis. Impression: 1. Normal bowel gas pattern This document has been electronically signed by: Caden Armendariz MD on 08/09/2025 15:07:46
== END 2025-08-07 09:05 | disposition home or self-care (01) ==
LOC: HO.XRAY 09:04
PROVIDERS: PCP Internal Medicine; Visit Provider Nurse Practitioner Family
DX: N20.0 Calculus of kidney (principal)
CPT/HCPCS: 74018

== ENCOUNTER → 2025-08-07 09:08 | Outpatient (BNV) | payer OTHER, SELFPAY | PROVIDERS: PCP Internal Medicine; Visit Provider Radiology Diagnostic Radiology | DX: N20.0 Calculus of kidney (principal) | CPT/HCPCS: 74018 ==

== ENCOUNTER 2025-08-16 14:38 | Outpatient (AMB) | payer OTHER, SELFPAY ==
--- NOTE | 2025-08-16 14:48 | A.OFFVIS_ITS ---
Intake Visit Reasons: 6M/KUB/UA Intake Note: Patient presents today for 6 mo follow up c/o frequent urination and having a hard time starting his urine stream Imaging Completed: KUB XRAY 08/09/25 Labs done : Cytology :02/19/25 Urology Med: Finasteride, tamsulosin, VIT-B12 Antibiotic Allergy: none Blood Thinner: none PVR: 0ml's Lead Housekeeper Required: No Accompanied by: Self / Same As Patient Allergies linagliptin (From [facility]) Allergy (Intermediate, Verified 08/16/25 15:36) RASH Folxtto-CII-YuR Reductase Inhibitor (ATZPANS-JCI-VEP REDUCTASE INHIBITOR) Allergy (Intermediate, Verified 08/16/25 15:36) ITCHY,SKIN BREAKDOWN Medication List - Last Reconciled 08/16/25 by WING Yee-JULIET baclofen 20 mg PO BID PRN 30 days blood sugar diagnostic As directed blood-glucose meter As directed bupropion HCl XL 150 mg PO QAM carbamazepine ER 400 mg PO DAILY cyanocobalamin (vitamin B-12) 1,000 mcg PO DAILY dicyclomine 10 mg PO QID PRN finasteride 5 mg PO DAILY ibuprofen 600 mg PO Q6H PRN lamotrigine 200 mg PO BID lancets (FreeStyle Lancets) As directed lisinopril 2.5 mg PO DAILY metformin ER 500 mg PO ONCE naproxen 500 mg PO BID oxycodone 5 mg PO Q6H PRN 8 days prazosin 5 mg PO BEDTIME pregabalin 300 mg PO BID psyllium husk (Metamucil) 1 tbsp PO DAILY quetiapine 25 mg PO BEDTIME rosuvastatin 10 mg PO BEDTIME sulfamethoxazole-trimethoprim 800-160 mg (Bactrim DS) 1 tab PO BID 5 days tamsulosin 0.4 mg PO BEDTIME 90 days HPI Comments Details: Linus is a 55-year-old male patient of Dr. Bates. He has a past medical history of low back pain, peripheral neuropathy, arthritis, PTSD, type 2 diabetes, hypercalcemia, hematuria, and urinary frequency. He presents to the office today for follow-up of his nephrolithiasis and lower urinary tract symptoms. In discussion with the patient today he reports noting increased episodes of urinary hesitancy since his last office visit here approximately 6 months ago. He reports compliance with Flomax and finasteride as prescribed. Most recent KUB results were reviewed with the patient today. 08/19 no abnormal calcifications. Specifically, no definitive urolithiasis. Normal bowel gas pattern per radiology report. We did discussed potential causes of urinary hesitancy as well as further treatment options and risks and benefits of these treatment options. He does have a longstanding history of lower urinary tract symptoms. He reports feelings InterStim has been extremely helpful with lower urinary tract symptoms he had been experiencing. He discusses doing well on program 03/02. He has a previous history of laser prostatectomy in 2019. He has failed oral medications including oxybutynin, tolterodine, and Myrbetriq. He has also failed bladder Botox. Labs are as follows: PSA: 11/15 0.6, 12/16 0.6, 06/17 0.3, 02/17 0.5 Urine culture 05/20: Klebsiella pneumoniae Urine cytology: 02/17 Negative for high-grade urothelial carcinoma When asked he denies urinary urgency, urinary frequency, incontinence, nocturia, dysuria, foul smelling urine, flank pain, fever, and or chills. He is happy with her current voiding parameters. In office urinalysis results reviewed with the patient today. PVR 0 mL. He also has a history of interstitial cystitis and underwent cystoscopy with bladder biopsy 11/14. All questions were answered. He otherwise offers no other issues or concerns at this time. Previous office note: Interstitial cystitis Biopsy proven November 2021 - Inflamed and congested mucosa 11/14 hydrodistention adverse event with complicated UTI Microgen 12/15 Enterococcus linezolid sensitive - 1 week trial Prostatitis Recurrent Occasional flares Last episode started July 2021 DNA analysis sensitivity to clindamycin and linezolid - Staphylococcus and Corynebacterium Lower urinary tract symptoms Urgency and frequency consistent with diabetic cystopathy - failed from medications oxybuytinin and tolterodine Underwent laser prostatectomy in 2018 Diabetic cystopathy with urgency - Had recurrent hematuria 12/14 Procedures - 11/14 Cystoscopy with fulguration neovascularity - 02/14 cystoscopy with bladder Botox Imaging 10/16 CT scan TURP defect, no stones Prior medications - oxybutynin 10 mg poor response, myrbetriq [facility] Medical History History of COVID-19 Low back pain Peripheral neuropathy Arthritis Unintentional weight loss PTSD (post-traumatic stress disorder) Hematuria Left lower quadrant pain Urinary frequency Type 2 diabetes mellitus with unspecified complications Other obstructive and reflux uropathy Benign prostatic hyperplasia with lower urinary tract symptoms Urgency incontinence Hypercalcemia Surgical History S/P fusion of sacroiliac joint History of esophagogastroduodenoscopy (EGD) Anal fissure History of surgery Hx of cystoscopy Hx of cardiac catheterization History of prostate surgery Hx of cystoscopy Hx of cystoscopy H/O colonoscopy Social History Are you a primary career services assistant to a significant other at home: No Do you presently have visiting nurse or other home services: 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 (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) Alcohol intake: never Patient Tobacco Use Status: Former Tobacco user Tobacco use type: Cigarette Second Hand Smoke Exposure: No Substance Use Type: Marijuana service: Yes Current occupational status: unemployed Current occupation: left handed Review of Systems Const Reports as per HPI Eyes Reports no additional complaints Card Reports as per HPI Reports as per HPI Musc Reports as per [facility] Neuro Reports as per [facility] Psych Reports as per HPI Endo Reports as per HPI Physical Exam Const General: cooperative, healthy appearing, comfortable, no acute distress, well developed, alert and awake Nutritional Appearance: average body habitus Orientation/consciousness: patient oriented x3 Limitations: no limitations HEENT Head: Yes normal to inspection, Yes normocephalic and Yes atraumatic Ears: hearing grossly normal bilaterally Eyes General: appearance normal, both eyes and all related structures Neck Neck: Yes normal visual inspection and Yes trachea midline Chest Chest palpation & inspection: normal inspection of the chest Resp Effort & Inspection: normal respiratory effort and able to speak in complete sentences Cardio Rate: regular rate GI Inspection: Yes normal to inspection General: Yes no CVA tenderness Back/Spine/Pelvis Back: no CVA tenderness Skin General skin exam: no rashes or lesions noted Neuro General: patient oriented x3 Extrem General: Yes normal to inspection Psych Appearance: grossly normal and well kempt Mental Status: mental status grossly normal Speech and movement: Normal speech and movement present and Clear speech present Affect: normal affect Attitude: cooperative Thought process: Normal thought process present Thought content: Normal thought content present Insight: Fair insight present (Psych) Judgement: Fair judgement present (Psych) Office Procedures Post Void Residual Post Residual Void Post Void Residual (PVR): 0 [id number]-[id number] Void Residual by ultrasound Results AMB Urinalysis, Automated UA Leukoctes 15 Jt/uL Last Edit by Yesenia Colon, [facility] on 08/16/25 15:04 UA Nitrite Negative Last Edit by Yesenia Pottersdale, [facility] on 08/16/25 15:04 UA Urobilinogen 0.2 mg/dL Last Edit by Yesenia Pottersdale, [facility] on 08/16/25 15:04 UA Protein 0 mg/dL Last Edit by Yesenia Pottersdale, [facility] on 08/16/25 15:04 UA pH 6.0 Last Edit by Yesenia Pottersdale, [facility] on 08/16/25 15:04 UA Blood 0 Mikie/uL Last Edit by Yesenia Pottersdale, [facility] on 08/16/25 15:04 UA Specific [place] 1.025 Last Edit by Yesenia Pottersdale, [facility] on 08/16/25 15:0 4 UA Ketone Negative Last Edit by Yesenia Pottersdale, [facility] on 08/16/25 15:04 UA Bilirubin 0 mg/dL Last Edit by Yesenia Pot[place], [facility] on 08/16/25 15:04 UA Glucose 0 mg/dL Last Edit by Yesenia Pottersdale, [facility] on 08/16/25 15:04 Results Reviewed Results Reviewed: Laboratory Last Values Urine pH (Auto) 6.0 08/16/25 15:03 Specific [place] (Auto) 1.025 08/16/25 15:03 Urine Protein (Auto) 0 mg/dL 08/16/25 15:03 Glucose (UA)(Auto) 0 mg/dL 08/16/25 15:03 Urine Ketones (Auto) Negative 08/16/25 15:03 Urine Blood (Auto) 0 Mikie/uL 08/16/25 15:03 Urine Nitrite (Auto) Negative 08/16/25 15:03 Urine Bilirubin (Auto) 0 mg/dL 08/16/25 15:03 Urine Urobilinogen (Auto) 0.2 mg/dL 08/16/25 15:03 Leukocyte Esterase (Auto) 15 Jt/uL 08/16/25 15:03 Date of Service: 08/07/25 Procedure(s): XR KUB Findings: Normal bowel gas pattern. Normal stool quantity. No abnormal calcifications. Specifically, no definable urolithiasis. No pneumoperitoneum or pneumatosis. Bones unremarkable. Neurostimulator hardware overlies left hemipelvis. Apparent medication pump overlies the right hemipelvis. Impression: 1. Normal bowel gas pattern Assessment & Plan Assessment & Plan (1) Nephrolithiasis: Code(s): N20.0 - Calculus of kidney Category: Medical (2) Urinary frequency: Code(s): R35.0 - Frequency of micturition Category: Medical (3) Urinary urgency: Code(s): R39.15 - Urgency of urination Category: Medical (4) Interstitial cystitis (chronic) without hematuria: Code(s): N30.10 - Interstitial cystitis (chronic) without hematuria Category: Medical (5) Overactive bladder: Code(s): N32.81 - Overactive bladder Category: Medical (6) Benign prostatic hyperplasia with urinary hesitancy: Code(s): N40.1 - Benign prostatic hyperplasia with lower urinary tract symptoms; R39.11 - Hesitancy of micturition Category: Medical Plan In office urinalysis results with the patient today; as noted above. PVR 0 mL. Most recent KUB results reviewed with the patient today; as noted above Will increase Flomax to 0.8 mg at bedtime. Will decrease finasteride to every other day. All questions were answered. We did discussed attempting to sit when voiding to relax pelvis to assist with urinary hesitancy. All questions were answered. Follow-up in 3 months with PVR; or sooner with any issues, concerns, and or questions. Orders: Orders AMB Urinalysis Automated Today N13.8 - Other obstructive and reflux uropathy, N40.1 - Benign prostatic hyperplasia with lower urinary tract symptoms AMB Post Void Residual by ultrasound Today N40.1 - Benign prostatic hyperplasia with lower urinary tract symptoms Medications: Changed From tamsulosin 0.4 mg PO BEDTIME 90 days 90 caps 1RF N40.1 - Benign prostatic hyperplasia with lower urinary tract symptoms, R35.1 - Nocturia To tamsulosin this is an increase in dose 0.8 mg (2 x 0.4 mg) PO BEDTIME 180 caps 1RF 90 days N40.1 - Benign prostatic hyperplasia with lower urinary tract symptoms, R35.1 - Nocturia Discontinued oxycodone Partial Fill upon patient request. Discontinued Reason: Patient Completed Course 5 mg PO Q6H 8 days PRN 32 tabs 0RF pain sulfamethoxazole-trimethoprim 800-160 mg (Bactrim DS) Discontinued Reason: Patient Completed Course 1 tab PO BID 5 days 10 tabs 0RF N39.0 - Urinary tract infection, site not specified Patient Instructions: The patient had an opportunity to ask questions regarding the treatment plan. All questions were answered. Physical exam, labs, and imaging were discussed and reviewed in detail. As well as risks, benefits, and discussion of treatment choices. No major barriers to understanding were identified. The patient expressed understanding and agreement with the above treatment plan. The patient was made aware they should contact our office by phone for worsening of their current condition, the appearance of new symptoms, or with any questions or concerns. Compliance is encouraged with any medications and follow up testing that is ordered. It is a privilege to be allowed the opportunity to participate in? your urological care.? Again, if you have any questions or concerns If you have any questions or concerns please do not hesitate to contact me. The office is [phone]. This note is constructed using voice recognition software. While every effort has been made to ensure accuracy health safety coordinator errors may have been included. Yours sincerely, EUNICE Yee Coding Level of Care Code Est Pt Level 3 (92564) Add On Problem Visit Only Diagnoses Nephrolithiasis N20.0 Urinary frequency R35.0 Urinary urgency R39.15 Interstitial cystitis (chronic) without hematuria N30.10 Overactive bladder N32.81 Benign prostatic hyperplasia with urinary hesitancy N40.1; R39.11 CPT Codes Post Residual Void - PVR CPT Code: 03717-Hsso Void Residual by ultrasound ([id number])
== END 2025-08-16 15:31 | disposition home or self-care (01) ==
LOC: HO.HUSH 14:39
PROVIDERS: PCP Internal Medicine; Visit Provider Nurse Practitioner Family
DX: N20.0 Calculus of kidney (principal); R35.0 Frequency of micturition; R39.15 Urgency of urination; N30.10 Interstitial cystitis (chronic) without hematuria; N32.81 Overactive bladder; N40.1 Benign prostatic hyperplasia with lower urinary tract symptoms; R39.11 Hesitancy of micturition; N13.8 Other obstructive and reflux uropathy
CPT/HCPCS: 99213; G2211

== ENCOUNTER → 2025-08-16 14:38 | Outpatient (BNVA) | payer OTHER, SELFPAY | PROVIDERS: PCP Internal Medicine; Visit Provider Nurse Practitioner Family | DX: N40.1 Benign prostatic hyperplasia with lower urinary tract symptoms (principal); N13.8 Other obstructive and reflux uropathy; N32.81 Overactive bladder; N30.10 Interstitial cystitis (chronic) without hematuria; N20.0 Calculus of kidney; R35.0 Frequency of micturition; R39.15 Urgency of urination; R39.11 Hesitancy of micturition; R35.1 Nocturia; Z79.899 Other long term (current) drug therapy | CPT/HCPCS: 51798; 81003; 99212 ==